=== PATIENT | female | born 1985 | race Caucasian/White ===

== ENCOUNTER 2018-11-14 10:30 | Emergency (ER) | payer MEDICAID, SELFPAY ==
[2018-11-14 10:33] VITALS: BP 118/80; PULSE 111; RESP 16; TEMP 37; O2SAT 100
--- NOTE | 2018-11-14 10:47 | W.ED.GENAD ---
Discharge Plan Disposition Patient Disposition: HOME Discharge Details Chief Complaint: DentalOral Clinical Impression: Dental infection Primary Care Provider: Zulay,Local ED Provider: Felix Richards Home Meds and New Rx's Prescriptions: New clindamycin HCl [Cleocin HCl] 150 mg capsule 450 mg PO TID Qty: 60 RF: 0 Continued ibuprofen [Ibuprofen IB] 200 MG tablet 800 mg PO PRN PRNRF: 0 Mirena 1 EACH intrauterine device 1 unit IU DAILY RF: 0 buprenorphine-naloxone 1 EACH tablet, sublingual 12 mg Sublingual DAILY RF: 0 Discharge Instructions Instructions: Dental Abscess (ED) Additional Instructions: Please take antibiotic as prescribed. Please follow-up with your dentist. Call for an appointment. Return to the ER for any worsening or new concerning symptoms. Medical Decision Making 33-year-old female smoker with history of prior dental infections here with right lower molar dental pain consistent with early dental infection. No abscess visualized or palpable. Patient notes penicillin allergy. She has been treated with clindamycin for dental infections successfully in the past. She is anxious here today per Patient does not currently have a local dentist and has anxiety about seeking a new dentist. I will provide her a dental follow-up resource list. I will give initial dose of clindamycin and prescribe 1 week course. Usual and customary discharge instructions were provided. HPI General Mode of arrival: ambulatory. Date/Time Provider Initiated Documentation: 11/14/18 10:41. Limitations to Documentation: no limitations. Information obtained by: patient. HPI Narrative: 33-year-old female smoker with history of prior dental infections here with pain in her right lower molar that started 3 days ago and has persisted. Pain is moderate to severe. No associated swelling or fever. She notes symptoms are similar to prior dental infection. Related Data Home Medications Medication Instructions Recorded Confirmed ibuprofen [Ibuprofen IB] 800 mg PO PRN PRN 04/04/14 11/14/18 Mirena 1 unit IU DAILY 08/22/15 11/14/18 buprenorphine-naloxone 12 mg SUBLINGUAL DAILY 09/01/16 11/14/18 clindamycin HCl [Cleocin HCl] 450 mg PO TID #60 cap 11/14/18 Previous Rx's Medication Instructions Recorded clindamycin HCl [Cleocin HCl] 450 mg PO TID #60 cap 11/14/18 Allergies Allergy/AdvReac Type Severity Reaction Status Date / Time Penicillins Allergy Unknown Unverified 11/14/18 10:37 General Stated Complaint: DentalOral MARSHALL: 5 Review of Systems Constitutional Denies fever(s) ENT Reports as per [facility] Social History Smoking and Tabacco status: Current every day Exam Const General: cooperative and no acute distress Orientation: alert and awake Limitations: mental status not altered [facility] Head: normocephalic and atraumatic Mouth: moist mucous membranes Teeth and gingiva: caries, poor dentition and other (Chronic fractured teeth right lower molars with no palpable abscess ) Throat: posterior oropharynx normal, uvula midline, posterior oropharynx abnormal and no uvular edema Other: No trismus Eyes General: appearance normal, both eyes and all related structures Conjunctivae: normal conjunctivae Sclera: normal sclerae EOM: EOM intact bilaterally Neck Neck: no lymphadenopathy, trachea midline and supple Resp Effort & Inspection: normal respiratory effort Auscultation: clear to auscultation bilaterally, no rales, no rhonchi and no wheezes Skin General skin exam: no rashes or lesions noted (face) Other: warm Neuro General: alert, awake and tone normal Psych Appearance: grossly normal Mental Status: mental status grossly normal Speech and Movement: speech and movement normal Course Vital Signs Temperature 37.0 C 11/14/18 10:33 Pulse 111 H 11/14/18 10:33 Respiratory Rate 16 11/14/18 10:33 Blood Pressure 118/80 11/14/18 10:33 Pulse Oximetry 100 11/14/18 10:33 Temperature 37.0 C 11/14/18 10:33 Temperature Source Temporal Artery Scan 11/14/18 10:33 Pulse 111 H 11/14/18 10:33 Respiratory Rate 16 11/14/18 10:33 Respiratory Effort Non-Labored 11/14/18 10:36 Blood Pressure 118/80 11/14/18 10:33 Pulse Oximetry 100 11/14/18 10:33 Oxygen Delivery Method Room Air 11/14/18 10:33 Oxygen Flow Rate 0 11/14/18 10:33 Pain Level 5 11/14/18 10:33
[2018-11-14] MEDS: Clindamycin 150 MG CAP 450 MG PO (10:53)
== END 2018-11-14 10:57 | disposition home or self-care (01) ==
LOC: ER 11:07
PROVIDERS: Emergency Provider Student in an Organized Health Care Education/Training Program
DX: R68.84 Jaw pain (principal); K04.7 Periapical abscess without sinus
CPT/HCPCS: 99283

== ENCOUNTER 2021-06-23 23:22 | Emergency (ER) | payer MEDICAID, SELFPAY ==
[2021-06-23 23:30] VITALS: BP 138/104; PULSE 130; RESP 18; TEMP 36.5; O2SAT 97
--- NOTE | 2021-06-23 23:45 | DI.RAD_ITS ---
Exam(s) XR PORTABLE CHEST AP EXAM: XR PORTABLE CHEST AP CLINICAL HISTORY: cough, abnormal lung sounds. TECHNIQUE: 2D digital imaging was performed. COMPARISON: CR CHEST 2 VIEWS PA,LAT from 03/15/2012 FINDINGS: Heart size normal. Mediastinum not widened. The mediastinum is not widened. Bilateral hyperinflation-COPD. There is prominent area of infiltrate in the left lung base involving left lower lobe. No obvious pleural effusion. Right lung is clear. IMPRESSION: COPD. Prominent infiltrate in the left lung base. Probably infectious. Follow-up to resolution is recommended to rule out neoplastic pathology. DATA REPOSITORY: RADIATION DOSE DELIVERED: All CT scans at this facility use at least one of these dose optimization techniques: automated exposure control; mA and/or kV adjustment per patient size (includes targeted e xams where dose is matched to clinical indication); or iterative reconstruction.
--- NOTE | 2021-06-23 23:55 | ED.GENADUL_ITS ---
Discharge Plan Disposition Patient Disposition: HOME Condition: Good Discharge Details Clinical Impression: CAP (community acquired pneumonia) Primary Care Provider: Zulay,Local ED Provider: Modesto Mcghee Meds and New Rx's Prescriptions: New levofloxacin 750 mg Tablet 750 mg PO DAILY Qty: 6 RF: 0 Continued Mirena 1 EACH intrauterine device 1 unit IU DAILY RF: 0 buprenorphine-naloxone 1 EACH tablet, sublingual 16 mg Sublingual DAILY RF: 0 Discharge Instructions Instructions: How to Stop Smoking (ED), Community Acquired Pneumonia (ED) Additional Instructions: Please take antibiotic as directed. Strongly urged to discontinue smoking given evidence of emphysema on chest x-ray. Will need follow-up with primary care and will have care management help with these arrangements. Return to ED for chest pain, difficulty breathing, vomiting, mental status changes, other concerns. Referrals: Care Management [Provider Group] Medical Decision Making Patient is afebrile with normal saturation. Heart rate is elevated due to anxiety not to the illness. She does have rhonchi in the left base suggesting pneumonia. She is not vaccinated so Covid test has been obtained. Portable chest x-ray will be obtained. I do not feel laboratory studies are necessary. Patient's chest x-ray shows significant COPD changes as well as left lower lobe infiltrate. She has allergy to penicillin which causes anaphylaxis reaction within 10 minutes of taking it. Because of her COPD changes and her penicillin allergy Levaquin would be most appropriate antibiotic to treat community- acquired pneumonia. She is on Suboxone so EKG is obtained. There is a normal QT interval. She is given her first dose of Levaquin here. We discussed x-ray findings and the urgent need for her to stop smoking given the amount of COPD changes noted. Covid test came back negative. We will have care management to establish primary care for follow-up as well as smoking cessation. Return to ED for chest pain, increased difficulty breathing, mental status changes, vomiting, other concerns. HPI General Mode of arrival: ambulatory . Date/Time Provider Initiated Documentation: 06/23/21 23:24 . Limitations to Documentation: no limitations . Information obtained by: patient and RN notes reviewed . HPI Narrative: Patient presents to the ED after coughing up some blood-tinged sputum. Patient has had cough for 2 weeks. It has become worse with increased sputum production and tonight some streaks of blood. She denies having fever, headache, body aches, joint pain, chest pain, difficulty breathing, vomiting. She is a smoker. She is not vaccinated against Covid. She does have sore throat but denies congestion, earache, other URI type symptoms. She is extremely anxious about being in the hospital. She always has anxiety when seeing medical providers. She only came in because the coughing streaks of blood concerned her. Related Data Home Medications Medication Instructions Recorded Confirmed Mirena 1 unit IU DAILY 08/22/15 06/23/21 buprenorphine-naloxone 16 mg SUBLINGUAL DAILY 09/01/16 06/23/21 levofloxacin 750 mg PO DAILY #6 tab 06/24/21 Previous Rx's Medication Instructions Recorded levofloxacin 750 mg PO DAILY #6 tab 06/24/21 Allergies Allergy/AdvReac Type Severity Reaction Status Date / Time Penicillins Allergy Unknown Unverified 06/23/21 23:35 General Stated Complaint: RespSymp MARSHALL: 4 Review of Systems Narrative: As documented in HPI otherwise negative as below. Const: no fever, chills, weakness Resp: no SOB, pleuritic pain CV: no CP, diaphoresis, edema, syncope GI: no abdominal pain, nausea, vomiting, diarrhea Neuro: no headache, numbness, focal weakness, confusion PFSH Medical History No significant past medical history Surgical History No significant past surgical history Social History Smoking/Tobacco Use Status: Current every day Tobacco Type: cigarettes Smoking risk assessment performed?: Yes Drug use: Current Sobriety Substance use type: former substance user Do you feel safe at home: Yes Do you feel safe in your relationship?: Yes Exam Narrative Exam Narrative: Const: Thin female in NAD. HEENT: NC/AT. Normal facial exam. TMs normal. Eyes: Normal conjunctiva and sclera. Neck: Supple. Trachea midline. Lungs: Normal respiratory effort. Lungs with rhonchi in left base. Cor: RRR without murmur/gallop. Good radial pulses. Tachy. GI: Soft. NT/ND. Neuro: A+O x 3. Normal speech, mentation, gait. Cranial nerves II - XII grossly intact. No gross motor or sensory deficit. Ext: No C/C/E. Skin: Warm and dry. Course Vital Signs Vital signs: Vital Signs Temperature 97.7 F 06/23/21 23:30 Pulse 130 H 06/23/21 23:30 Respiratory Rate 18 06/23/21 23:30 Blood Pressure 138/104 H 06/23/21 23:30 Pulse Oximetry 97 06/23/21 23:30 Temperature 97.7 F 06/23/21 23:30 Temperature Source Temporal Artery Scan 06/23/21 23:30 Pulse 130 H 06/23/21 23:30 Respiratory Rate 18 06/23/21 23:30 Respiratory Effort Non-Labored 06/23/21 23:36 Respiratory Depth Normal 06/23/21 23:36 Blood Pressure 138/104 H 06/23/21 23:30 Blood Pressure Position Sitting 06/23/21 23:30 Pulse Oximetry 97 06/23/21 23:30 Oxygen Delivery Method Room Air 06/23/21 23:30 Oxygen Flow Rate 0 06/23/21 23:30 Pain Level 0 06/23/21 23:30 Procedures Smoking Cessation Patient Acknowledges Need for Cessation: Yes Additional Comments: Spent approximately 5 minutes discussing x-ray findings, COPD, smoking cessation with patient.
--- NOTE | 2021-06-24 | RT.EKG_ITS ---
APPROVED REPORT Exam: Resting ECG Reason for Exam: QT assessment Patient Location: E HR:118 bpm ECG Measurements Heart Rate 118 AXIS CA 111 P 82 QRSd 104 QRS 87 QT 315 T 62 QTc 440 Conclusion Sinus tachycardia...rate> 99 Left ventricular hypertrophy...multiple voltage criteria Normal [place] Normal QTc No acute ST changes.
--- NOTE | 2021-06-24 00:08 | NUR.NOTE ---
Radiology at bedside for portable filmNursing Note:
--- NOTE | 2021-06-24 00:17 | DI.VRAD_ITS ---
PROCEDURE INFORMATION: Exam: XR Chest Exam date and time: 06/23/2021 11:55 PM Age: 35 years old Clinical indication: Patient HX: Cough, abnormal lung sounds TECHNIQUE: Imaging protocol: XR of the chest. Views: 1 view. COMPARISON: No relevant prior studies available. FINDINGS: Lungs: Hyperinflation compatible with COPD/emphysema. Left basilar opacity may reflect pneumonia, atelectasis, mass lesion, or a combination. Further evaluation with CT imaging could be performed as needed. Pleural spaces: Unremarkable. No pleural effusion. No pneumothorax. Heart/Mediastinum: Unremarkable. No cardiomegaly. Bones/joints: Unremarkable. IMPRESSION: 1. Hyperinflation compatible with COPD/emphysema. 2. Left basilar opacity may reflect pneumonia, atelectasis, mass lesion, or a combination. Further evaluation with CT imaging could be performed as needed. Dictated and Authenticated by: Chau Benitez MD. Ordering:TRAMAINE Salvador MD
[2021-06-24 00:38] VITALS: BP 119/93; PULSE 124; O2SAT 97
[2021-06-24] MEDS: levoFLOXacin 500 MG, levoFLOXacin 250 MG 750 MG PO (00:43)
[2021-06-24 00:51] LABS: COVID-19 PCR Negative (Negative); Source Nasal/Nares
--- NOTE | 2021-06-25 10:40 | CMPROGNOTE_ITS ---
- If Service Date Differs Date of service: 06/25/21 Time of Service: 10:40 Care Management Progress Note Nicol was seen in the ED for community acquired pneumonia. At the request of ED provider, CM coordinates a referral to Malvin Sherwood DNP, [employer], of [facility], on-call provider, to assist Nicol in obtaining a follow up appointment and in establishing care with a PCP.
--- NOTE | 2021-06-26 18:29 | NUR.NOTE ---
negative covid result left on answering machine. Nursing Note:
--- NOTE | 2021-06-30 13:09 | NUR.NOTE ---
notified by phone that covid swab was negative.Nursing Note:
== END 2021-06-24 00:49 | disposition home or self-care (01) ==
PROVIDERS: Emergency Provider Emergency Medicine
DX: J18.9 Pneumonia, unspecified organism (principal); F17.210 Nicotine dependence, cigarettes, uncomplicated; J44.9 Chronic obstructive pulmonary disease, unspecified
CPT/HCPCS: 87635; 93005; 99284; 71045; 93010

== ENCOUNTER 2021-09-11 14:04 | Outpatient (REF) | payer MEDICAID, SELFPAY ==
[2021-09-11 14:14] LABS: HCT 27.4 % (36.0-46.0); HGB 8.2 g/dL (11.2-15.7); MCH 25.5 pg (27.0-33.0); MCHC 29.9 % (32.0-36.0); MCV 85.1 fL (80-95); MPV 9.9 fL (8.0-11.0); RBC 3.22 10^6/uL (3.93-5.22); RDW 19.2 % (11.7-14.6); RDW-SD 58.4 fL
[2021-09-11 14:53] LABS: Platelet Count 911 10^3/uL (130-400); WBC 27.67 10^3/uL (4.4-10.8)
[2021-09-11 15:03] LABS: ALT 10 U/L (14-59); AST 11 U/L (15-37); Albumin 1.9 g/dL (3.4-5.0); Alkaline Phosphatase 118 U/L (46-116); Anion Gap 11.9 mmol/L (3-11); BUN 21 mg/dL (7-18); Bilirubin, Total 0.3 mg/dL (0.2-1.0); CO2 23.1 mmol/L (21.0-32.0); CREATININE 0.6 mg/dL (0.55-1.02); Calcium 8.4 mg/dL (8.5-10.1); Chloride 100 mmol/L (98-107); Glucose 87 mg/dL (74-106); PHOSPHORUS 4.1 mg/dL (2.6-4.7); Potassium 3.5 mmol/L (3.5-5.1); Sodium 135 mmol/L (136-145); TSH (W/Ref FT4) < 0.01 uIU/mL (0.36-3.74); Total Protein 7.8 g/dL (6.4-8.2)
[2021-09-11 15:34] LABS: FREE T4 2.88 ng/dL (0.76-1.46)
[2021-09-11 15:52] LABS: Iron 8 ug/dL (50-170); Total Iron Binding Capacity 118 ug/dL (250-450); Transferrin Sat 7 % (15-50)
[2021-09-11 16:26] LABS: Hemoglobin A1C 5.5 % (<5.7)
[2021-09-12 09:17] LABS: Hepatitis B Surface Ag Negative (Negative)
[2021-09-12 09:45] LABS: Hepatitis C Ab w Rflx HCV PCR Negative (Negative)
[2021-09-12 10:02] LABS: HIV-1/2 Ag & Ab Screen Negative (Negative)
[2021-09-12 10:40] LABS: Prealbumin 7 mg/dL (20-40)
== END 2021-09-11 14:05 | disposition home or self-care (01) ==
LOC: LBN 14:04
PROVIDERS: PCP Family Medicine; Visit Provider Family Medicine
DX: R63.6 Underweight (principal); Z00.00 Encounter for general adult medical examination without abnormal findings; Z11.4 Encounter for screening for human immunodeficiency virus [HIV]; Z11.59 Encounter for screening for other viral diseases
CPT/HCPCS: 80053; 85027; 86803; 87340; 87389; 83036; 83540; 83550; 83735; 84100; 84134; 84439; 84443

== ENCOUNTER 2021-11-13 09:39 | Inpatient (IN) | payer MEDICAID, SELFPAY ==
[2021-11-13] VITALS (17 sets, daily range): BP systolic 87–134; BP diastolic 42–97; PULSE 86–109; RESP 16–25; TEMP 36.2–37.6; O2SAT 95–99; BMI 16.6
--- NOTE | 2021-11-13 10:00 | DI.RAD_ITS ---
Exam(s) XR ANKLE RT COMPLETE EXAM: XR ANKLE RT COMPLETE CLINICAL HISTORY: medial and lateral necrotic? ulcer, r/o osteo. TECHNIQUE: 2D digital imaging was performed. COMPARISON: No exams were available for comparison FINDINGS: Three views of the right ankle reveal severe soft tissue deficiencies bilaterally with air-gas in sof t tissues. There are no fractures nor widening of the mortise. No radiopaque foreign body. No obvious radiogra phic evidence of osteomyelitis. No vascular calcification. IMPRESSION: As above. Discussed with ER provider. DATA REPOSITORY: RADIATION DOSE DELIVERED:
--- NOTE | 2021-11-13 10:11 | ED.GENADUL_ITS ---
Discharge Plan Disposition Patient Disposition: [facility] INPATIENT Condition: Stable Discharge Details Clinical Impression: Open ankle wound, Subcutaneous air, Wound infection Admit Date/Time: 11/13/21 15:30 Admit Provider: Susana Richey Attending Provider: Susana Richey Primary Care Provider: Isaac Nuno ED Provider: Jazzy Celaya Discharge Data Discharge Date/Time-TO BE ENTERED AT DEPARTURE: 11/13/21 15:08 Medical Decision Making 36-year-old female with a former history of narcotic abuse in remission on Suboxone with a history of tachycardia on propranolol presents for right ankle wounds for the past 6 weeks. She has 2 approximate 8 x 8 cm dark maroon/black crusted wounds located on the right medial and lateral ankle. Her right DP pulse is intact. There is serous drainage from an opening in the inferior aspect of the lateral wound. Heart rate low 100s. She is afebrile and appears very anxious but otherwise nontoxic. Her leg does not appear edematous otherwise and unclear if she has an overlying crust from constant irritation from her boot and a distal extremity with delayed healing or if there is concern for necrosis. Will place an IV, bolus IV fluids, screening labs, lactate, ESR, CRP and right ankle x-ray. Labs and imaging reviewed. White blood cell count 28. 2 bands. Lactate 1.6. ESR 87. CRP 11.5. Potassium 2.6. Vancomycin IV and Cipro IV ordered. She is reporting an anaphylactic reaction with penicillin. IV/PO potassium ordered. X-rays reviewed with radiology who does not see obvious signs of osteomyelitis but sees potential gas or whether this is air within superficial tissue it is unclear. We will proceed with CT. Patient is tearful and anxious and is repeatedly stated she does not want to stay. Discussed with patient the importance of receiving treatment including IV antibiotics at this time and the concern of worsening condition with risk of amputation. A dose of Ativan ordered. CT reviewed and notes subcutaneous air but no findings consistent with osteom yelitis, ischemic changes, abscess or deep subcu air noted within tendon or muscle. MRI down til 5pm. Case discussed with Dr. Dumont and no orthopedic intervention indicated at this time as no obvious bony injury. Case discussed general surgery who will evaluate with plan for likely OR for debridement. Patient more relaxed after Ativan and is agreeable with plan. Medical Records Medical records reviewed: Yes I reviewed the patient's medical records. Imaging Data Radiologic Study: Radiologist's impression: ?XR ANKLE RT COMPLETE CLINICAL HISTORY: ? medial and lateral necrotic? ulcer, r/o osteo. ? TECHNIQUE:? 2D digital imaging was performed. COMPARISON:? No exams were available for comparison FINDINGS: Three views of the right ankle reveal severe soft tissue deficiencies bilaterally with air-gas in soft tissues. There are no fractures nor widening of the mortise.? No radiopaque foreign body.? No obvious radiographic evidence of osteomyelitis.? No vascular calcification. CT LOWER EXTREMITY RT W CLINICAL HISTORY: ? R ankle wounds, r/o abscess, osteo. ? TECHNIQUE:? Imaging Protocol: Axial computed tomography images with coronal and sagittal reformatted images were created and reviewed. CONTRAST MATERIAL:? Intravenous: Omnipaque 350 Contrast volume:100 cc contrast route:IV - COMPARISON:? ANKLE X-RAYS PERFORMED EARLIER TODAY.? FINDINGS: SOFT TISSUES: There are multiple open wounds on both sides of the ankle and proximal foot, corresponding to what is seen on the recent plain films.? There is no radiopaque foreign body.? There is air within the subcutaneous tissues.? Diffuse edema but no distinct focal abscess evident.? No tenosynovitis.? No gas within the muscles nor within the visualized tendon sheaths. VASCULAR: There is three-vessel runoff in the calf.? Anterior and posterior tibial arteries are patent as is the peroneal artery. OSSEOUS: There is osteopenia.? No fractures.? No obvious focal evidence of osteomyelitis.? No incidental osseous lesions. IMPRESSION: Soft tissue findings as above, not associated with a distinct focal abscess nor obvious osteomyelitis.? If clinically indicated follow-up MRI can be performed Lab Data Lab results reviewed: Yes I reviewed the patient's lab results. Labs: Laboratory Tests Range/Units 11/13/21 11/13/21 11/13/21 10:10 10:10 10:10 WBC (4.4-10.8) 10^3/uL RBC (3.93-5.22) 10^6/uL Hgb (11.2-15.7) g/dL Hct (36.0-46.0) % MCV (80-95) fL MCH (27.0-33.0) pg MCHC (32.0-36.0) % RDW (11.7-14.6) % Plt Count (130-400) 10^3/uL MPV (8.0-11.0) fL Immature Gran % Neutrophils % Band Neutrophils % Lymphocytes % Monocytes % Eosinophils % Basophils % Nucleated RBC % % Absolute Neutrophils (1.2-6.7) 10^3/uL Absolute Lymphocytes (1.2-3.4) 10^3/uL Absolute Monocytes (0.1-0.8) 10^3/uL Absolute Eosinophils (0.0-0.7) 10^3/uL Absolute Basophils (0.0-0.2) 10^3/uL RBC Morphology ESR (0-20) mm/hr 87 H VBG Lactate (0.6-1.4) mmol/L 1.6 H Sodium (136-145) mmol/L 138 Potassium (3.5-5.1) mmol/L 2.6 L* Chloride (98-107) mmol/L 102 Carbon Dioxide (21.0-32.0) mmol/L 24.8 Anion Gap (3-11) mmol/L 11.2 H BUN (7-18) mg/dL 24 H Creatinine (0.55-1.02) mg/dL 0.8 Estimated GFR/1.73 m2 (mL/min/1.73m2) >= 60.00 Glucose (74-106) mg/dL 186 H Calcium (8.5-10.1) mg/dL 9.1 Total Bilirubin (0.2-1.0) mg/dL 0.2 AST (15-37) U/L 16 ALT (14-59) U/L 27 Alkaline Phosphatase (46-116) U/L 129 H C-Reactive Protein (0.0-0.3) mg/dL 11.51 H Total Protein (6.4-8.2) g/dL 8.5 H Albumin (3.4-5.0) g/dL 2.4 L Range/Units 11/13/21 10:10 WBC (4.4-10.8) 10^3/uL 28.17 H* RBC (3.93-5.22) 10^6/uL 4.46 Hgb (11.2-15.7) g/dL 11.7 Hct (36.0-46.0) % 37.6 MCV (80-95) fL 84.3 MCH (27.0-33.0) pg 26.2 L MCHC (32.0-36.0) % 31.1 L RDW (11.7-14.6) % 16.7 H Plt Count (130-400) 10^3/uL 612 H MPV (8.0-11.0) fL 9.5 Immature Gran % 0.0 Neutrophils % 79.0 Band Neutrophils % 2 Lymphocytes % 11.0 Monocytes % 5.0 Eosinophils % 1.0 Basophils % 2.0 Nucleated RBC % % 0 Absolute Neutrophils (1.2-6.7) 10^3/uL 22.82 H Absolute Lymphocytes (1.2-3.4) 10^3/uL 3.10 Absolute Monocytes (0.1-0.8) 10^3/uL 1.41 H Absolute Eosinophils (0.0-0.7) 10^3/uL 0.28 Absolute Basophils (0.0-0.2) 10^3/uL 0.56 H RBC Morphology Normal ESR (0-20) mm/hr VBG Lactate (0.6-1.4) mmol/L Sodium (136-145) mmol/L Potassium (3.5-5.1) mmol/L Chloride (98-107) mmol/L Carbon Dioxide (21.0-32.0) mmol/L Anion Gap (3-11) mmol/L BUN (7-18) mg/dL Creatinine (0.55-1.02) mg/dL Estimated GFR/1.73 m2 (mL/min/1.73m2) Glucose (74-106) mg/dL Calcium (8.5-10.1) mg/dL Total Bilirubin (0.2-1.0) mg/dL AST (15-37) U/L ALT (14-59) U/L Alkaline Phosphatase (46-116) U/L C-Reactive Protein (0.0-0.3) mg/dL Total Protein (6.4-8.2) g/dL Albumin (3.4-5.0) g/dL HPI General Date/Time Provider Initiated Documentation: 11/13/21 09:42 . Limitations to Documentation: no limitations . Information obtained by: patient . HPI Narrative: Patient is a 36-year-old female with a history of narcotic abuse in remission on Suboxone with history of tachycardia on propranolol presents with right ankle wounds for the past 6 weeks. Patient states she was unaware that she had this until the last few weeks. She states she wears winter boot with soft and thinks it is rubbing inside her boot. She states she went to the urgent care today for her ankle wounds and was referred here for further evaluation. She states 2 days ago she tripped over a toy at home and opened the lateral wound on her ankle and has been oozing and bleeding. She denies any fever or IV drug use. She states she has diagnosed with COVID in July which progressed to pneumonia and was treated with Levaquin in August. She states her COVID symptoms are now resolved. Related Data Home Medications Medication Instructions Recorded Confirmed levonorgestrel 20 mcg/24 hours (7 1 unit IU DAILY 08/22/15 11/13/21 yrs) 52 mg intrauterine device (Mirena) ferrous gluconate 324 mg (38 mg 324 mg PO DAILY 11/13/21 11/13/21 iron) tablet propranolol 20 mg tablet 20 mg PO BID 11/13/21 11/13/21 buprenorphine 2 mg-naloxone 0.5 mg 1 film SUBLINGUAL DAILY 11/14/21 11/14/21 sublingual film (Suboxone) buprenorphine 8 mg-naloxone 2 mg 2 film SUBLINGUAL DAILY 11/14/21 11/14/21 sublingual film (Suboxone) Allergies Allergy/AdvReac Type Severity Reaction Status Date / Time Penicillins Allergy Unknown Hives Verified 11/13/21 14:49 General Stated Complaint: Cellulitis MARSHALL: 3 Review of Systems All systems reviewed & are unremarkable except as noted in HPI and below Constitutional Constitutional: Reports as per HPI, Denies chills and Denies fever(s) Eyes Eyes: Denies blurry vision ENT Ears, Nose, Mouth, and Throat: Denies dizziness, Denies sore throat and Denies throat swelling Cardiovascular Cardiovascular: Denies chest pain and Denies dyspnea Respiratory Respiratory: Denies cough and Denies dyspnea Gastrointestinal Gastrointestinal: Denies abdominal pain, Denies diarrhea and Denies vomiting Genitourinary Genitourinary: Denies hematuria and Denies dysuria Musculoskeletal Musculoskeletal: Denies back pain and Denies numbness Integumentary/Breasts Skin/Breast: Denies lesions, Denies rash and Reports skin ulcer (R medial and lateral ankle) Neurologic Neurologic: Denies dizziness, Denies localized weakness and Denies numbness Allergic/Immunologic Allergic/Immunologic: Denies throat swelling PFSH All Active Problems (Updated 11/14/21 @ 15:58 by Gabriella Kelley MD) Hyperthyroidism (Chronic) Leukocytosis (leucocytosis) (Acute) Asthma (Chronic) Hypoalbuminemia due to protein-calorie malnutrition (Acute) Dry gangrene (Acute) Smoker unmotivated to quit (Acute) Open ankle wound (Acute) Subcutaneous air (Acute) Wound infection (Acute) CAP (community acquired pneumonia) (Acute) Pain, dental (Acute) Medical History (Updated 11/14/21 @ 15:58 by Gabriella Kelley MD) Narcotic abuse in remission Tachycardia Surgical History (Updated 11/13/21 @ 10:15 by Jazzy Celaay DO) History of adenoidectomy S/p bilateral myringotomy with tube placement Social History Smoking/Tobacco Use Status: Current every day Tobacco Type: cigarettes Smoking risk assessment performed?: Yes Alcohol Intake: never Drug use: Current Sobriety Substance use type: former substance user Do you feel safe at home: Yes Do you feel safe in your relationship?: Yes Exam Const General: cooperative, no acute distress, disheveled and ill appearing chronically Nutritional Appearance: thin Orientation: alert, awake and oriented x3 HENMT Head: normal to inspection Mouth: oral mucosae normal Eyes General: appearance normal, both eyes and all related structures Neck Neck: normal visual inspection Resp Effort & Inspection: normal respiratory effort and able to speak in complete sentences Cardio Rate: regular rate Neuro General: patient alert, patient awake and patient oriented x3 Motor: muscle tone normal throughout Extrem Ankle/foot/toe images: 1. Approximate 8x8cm dark maroon/black crusted wound with approximate 6cm linear opening within the inferior aspect of the wound with clear and serous drainage. There is surrounding pink granulation tissue but no significant erythema, edema, crepitus, induration or fluctuance. 2. Approximate 8 x 8 cm dark maroon/black crusted wound. There is surrounding pink granulation tissue but no significant erythema, edema, crepitus, induration or fluctuance. Psych Appearance: grossly normal Affect: normal affect Course Vital Signs Vital signs: Vital Signs Temperature 97.7 F 11/13/21 09:49 Pulse 109 H 11/13/21 09:49 Respiratory Rate 16 11/13/21 09:49 Blood Pressure 134/97 H 11/13/21 09:49 Pulse Oximetry 96 11/13/21 09:49 Temperature 97.7 F 11/13/21 09:49 Temperature Source Skin 11/13/21 09:49 Pulse 109 H 11/13/21 09:49 Respiratory Rate 16 11/13/21 09:49 Respiratory Effort 11/13/21 09:49 Blood Pressure 134/97 H 11/13/21 09:49 Blood Pressure Position Sitting 11/13/21 09:49 Pulse Oximetry 96 11/13/21 09:49 Oxygen Delivery Method Room Air 11/13/21 09:49 Oxygen Flow Rate 0 11/13/21 09:49 Pain Level 0 11/13/21 09:49
[2021-11-13 10:23] LABS: HCT 37.6 % (36.0-46.0); HGB 11.7 g/dL (11.2-15.7); MCH 26.2 pg (27.0-33.0); MCHC 31.1 % (32.0-36.0); MCV 84.3 fL (80-95); MPV 9.5 fL (8.0-11.0); Nucleated RBC 0 %; Platelet Count 612 10^3/uL (130-400); RBC 4.46 10^6/uL (3.93-5.22); RDW 16.7 % (11.7-14.6)
[2021-11-13] MEDS: Normal Saline 1,000 ML 1000 ML IV (10:23)
[2021-11-13 10:25] LABS: ESR 87 mm/hr (0-20); Lactate 1.6 mmol/L (0.6-1.4)
--- NOTE | 2021-11-13 10:29 | NUR.NOTE ---
Nursing Note: Pt brought to radiology via w/c for xray.
[2021-11-13 10:35] LABS: WBC 28.17 10^3/uL (4.4-10.8)
[2021-11-13 10:37] LABS: ALT 27 U/L (14-59); AST 16 U/L (15-37); Absolute Basophil Count 0.56 10^3/uL (0.0-0.2); Absolute Eosinophil Count 0.28 10^3/uL (0.0-0.7); Absolute Monocyte Count 1.41 10^3/uL (0.1-0.8); Absolute Neutrophil Count 22.82 10^3/uL (1.2-6.7); Albumin 2.4 g/dL (3.4-5.0); Alkaline Phosphatase 129 U/L (46-116); Anion Gap 11.2 mmol/L (3-11); BUN 24 mg/dL (7-18); Bands % 2; Bilirubin, Total 0.2 mg/dL (0.2-1.0); C-Reactive Protein 11.51 mg/dL (0.0-0.3); CO2 24.8 mmol/L (21.0-32.0); CREATININE 0.8 mg/dL (0.55-1.02); Calcium 9.1 mg/dL (8.5-10.1); Chloride 102 mmol/L (98-107); Diff Comment Manual Differential; Glucose 186 mg/dL (74-106); RBC Morphology Normal; Sodium 138 mmol/L (136-145); Total Protein 8.5 g/dL (6.4-8.2)
[2021-11-13 10:39] LABS: Potassium 2.6 mmol/L (3.5-5.1)
--- NOTE | 2021-11-13 10:44 | NUR.NOTE ---
Nursing Note: Pt return from DI, IVF continued.
[2021-11-13] MEDS: POTASSIUM CHLORIDE 20 MEQ/100 ML BAG 50 MEQ IVPB (11:15)
[2021-11-13] MEDS: Potassium Chloride 20 MEQ TABCR 40 MEQ PO (11:15)
[2021-11-13] MEDS: VANCOMYCIN/WATER (PEG) 1.25 GM/250 ML BAG IVPB (11:28)
[2021-11-13] MEDS: LORazepam 2 MG/ML VIAL 0.5 MG IVP (11:40)
[2021-11-13] MEDS: CIPROFLOXACIN 400 MG/200 ML BAG 200 MG IVPB (11:48)
--- NOTE | 2021-11-13 11:49 | NUR.NOTE ---
Nursing Note: Pt medicated IV ativan d/t anxiety r/t current situation, pt upset/tearful and I just want to go home, I need to smoke a cigarette and I have kids so I can't stay here pt agrees to stay & take ativan as ordered to help relieve anxiety and cont. treatment at this time, cont. to monitor.
--- NOTE | 2021-11-13 12:08 | NUR.NOTE ---
Nursing Note: Pt reports feeling less anxious at this time, to DI for scans via stretcher w/tech.
[2021-11-13] MEDS: Omnipaque 350 MG/ML 100 ML BTL IJ (12:34)
--- NOTE | 2021-11-13 12:34 | NUR.NOTE ---
Nursing Note: Pt return from DI, IV medications continued, remains calm at this time, cont. to monitor.
--- NOTE | 2021-11-13 12:35 | DI.CT_ITS ---
Exam(s) CT LOWER EXTREMITY RT W EXAM: CT LOWER EXTREMITY RT W CLINICAL HISTORY: R ankle wounds, r/o abscess, osteo. TECHNIQUE: Imaging Protocol: Axial computed tomography images with coronal and sagittal reformatted images were created and reviewed. CONTRAST MATERIAL: Intravenous: Omnipaque 350 Contrast volume:100 cc contrast route:IV - COMPARISON: ANKLE X-RAYS PERFORMED EARLIER TODAY. FINDINGS: SOFT TISSUES: There are multiple open wounds on both sides of the ankle and proximal foot, corresponding to what is seen on the recent plain films. There is no radiopaque foreign body. There is air within the subcu taneous tissues. Diffuse edema but no distinct focal abscess evident. No tenosynovitis. No gas wit hin the muscles nor within the visualized tendon sheaths. VASCULAR: There is three-vessel runoff in the calf. Anterior and posterior tibial arteries are patent as is th e peroneal artery. OSSEOUS: There is osteopenia. No fractures. No obvious focal evidence of osteomyelitis. No incidental osseo us lesions. IMPRESSION: Soft tissue findings as above, not associated with a distinct focal abscess nor obvious osteomyelitis . If clinically indicated follow-up MRI can be performed RADIATION DOSE DELIVERED: Total DLP DATA REPOSITORY: All CT scans at this facility are submitted to the National Radiology Data Registry (NRDR) Dose Index Registry (DIR) with the [employer] (ACR). RADIATION OPTIMIZATION: All CT scans at this facility use at least one of these dose optimization te chniques: automated exposure control; mA and/or kV adjustment per patient size (includes targeted exa ms where dose is matched to clinical indication); or iterative reconstruction.
--- NOTE | 2021-11-13 13:11 | NUR.NOTE ---
Nursing Note: Covid swab obtained & sent to lab per order.
[2021-11-13 13:55] LABS: COVID-19 PCR Negative (Negative)
[2021-11-13 14:00] LABS: Source NASAL
[2021-11-13 14:09] LABS: *AMPHETAMINES SCREEN URINE Negative (Negative); *BARBITURATES SCREEN URINE Negative (Negative); *BENZODIAZEPINES SCREEN URINE Negative (Negative); Cannabinoids THC Negative (Negative); Cocaine Screen,Urine Negative (Negative); METHADONE URINE SCREEN Negative (Negative); OPIATES URINE SCREEN Negative (Negative); Tricyclic Antidepressants Negative (Negative)
--- NOTE | 2021-11-13 14:14 | ANES.PREOP_ITS ---
General Info Date of Service Date Performed: 11/13/21 Height: 5 ft Weight: 38.555 kg Body Mass Index (BMI): 16.6 Meds Allergies and Home Medications Allergies Allergy/AdvReac Type Severity Reaction Status Date / Time Penicillins Allergy Unknown Hives Verified 11/13/21 14:49 Home Medication Medication Instructions Recorded levonorgestrel 20 mcg/24 hours (7 1 unit IU DAILY 08/22/15 yrs) 52 mg intrauterine device (Mirena) buprenorphine 8 mg-naloxone 2 mg 18 mg SUBLINGUAL DAILY 09/01/16 sublingual tablet ferrous gluconate 324 mg (38 mg 324 mg PO DAILY 11/13/21 iron) tablet propranolol 20 mg tablet 20 mg PO BID 11/13/21 Current Visit Medications: Current Medications Generic Name Dose Route Start Last Admin Trade Name Freq PRN Reason Stop Dose Admin IV Miscellaneous Supplies 1 each 11/13/21 10:15 Iv Access IV DIRECTED HANSA Iohexol 100 ml 11/13/21 12:45 11/13/21 12:34 Omnipaque 350 Mg/Ml 100 Ml Btl IJ 12/13/21 23:59 100 ml DIRECTED HANSA Administration Sodium Chloride 0 ml 11/13/21 10:07 Normal Saline Flush 10 Ml Syr IVP PRN PRN Sodium Chloride 50 ml 11/13/21 12:45 11/13/21 12:34 Normal Saline 50 Ml Bag IJ 50 ml DIRECTED HANSA Administration PFSH Active Problems Active Problems: Problem Status Onset Code CAP (community acquired pneumonia) J18.9 Pain, dental K08.8 Medical History Medical History (Updated 11/13/21 @ 14:40 by Susana Richey DO) Narcotic abuse in remission Tachycardia Surgical History Surgical History (Updated 11/13/21 @ 10:15 by Jazzy Celaya DO) History of adenoidectomy S/p bilateral myringotomy with tube placement Tobacco Smoking/Tobacco Use Status: Current every day Tobacco Type: cigarettes Smoking cigarettes per day: 10 Alcohol Alcohol Intake: never Substance Use Substance use: Current Sobriety Substance use type: former substance user Vital Signs and Lab Results Vital Signs Most Recent Vital Signs in EMR: Most Recent Vital Signs Temp Pulse Resp BP Pulse Ox 36.8 C 92 H 18 98/59 L 98 11/13/21 13:39 11/13/21 13:39 11/13/21 13:39 11/13/21 13:39 11/13/21 13:39 Point of Care Results Point of Care Results: POC- Test(urine) Negative 11/13/21 11:13 Lab Results Result Diagrams: 11/13/21 10:10 11/13/21 10:10 Blood Type / Crossmatch: No Data to Display Complete Blood Count: White Blood Count 28.17 10^3/uL (4.4-10.8) H* 11/13/21 10:10 11/13/21 Red Blood Count 4.46 10^6/uL (3.93-5.22) 11/13/21 10:10 11/13/21 Hemoglobin 11.7 g/dL (11.2-15.7) 11/13/21 10:10 11/13/21 Hematocrit 37.6 % (36.0-46.0) 11/13/21 10:10 11/13/21 Platelet Count 612 10^3/uL (130-400) H 11/13/21 10:10 11/13/21 Venous Blood Lactate 1.6 mmol/L (0.6-1.4) H 11/13/21 10:10 11/13/21 Complete Metabolic Panel: Sodium Level 138 mmol/L (136-145) 11/13/21 10:10 11/13/21 Potassium Level 2.6 mmol/L (3.5-5.1) L* 11/13/21 10:10 11/13/21 Chloride Level 102 mmol/L (98-107) 11/13/21 10:10 11/13/21 Carbon Dioxide Level 24.8 mmol/L (21.0-32.0) 11/13/21 10:10 11/13/21 Blood Urea Nitrogen 24 mg/dL (7-18) H 11/13/21 10:10 11/13/21 Creatinine 0.8 mg/dL (0.55-1.02) 11/13/21 10:10 11/13/21 Estimated GFR/1.73 m2 >= 60.00 (mL/min/1.73m2) 11/13/21 10:10 11/13/21 Calcium Level 9.1 mg/dL (8.5-10.1) 11/13/21 10:10 11/13/21 Albumin 2.4 g/dL (3.4-5.0) L 11/13/21 10:10 11/13/21 Glucose Level 186 mg/dL (74-106) H 11/13/21 10:10 11/13/21 C-Reactive Protein 11.51 mg/dL (0.0-0.3) H 11/13/21 10:10 11/13/21 Liver Function Panel: Alanine Aminotransferase (ALT/SGPT) 27 U/L (14-59) 11/13/21 10:10 11/13/21 Aspartate Amino Transf (AST/SGOT) 16 U/L (15-37) 11/13/21 10:10 11/13/21 Coagulation Panel: No Data to Display Cardiac Panel: No Data to Display Arterial Blood Gas: No Data to Display Venous Blood Gas: No Data to Display Pancreas Panel: No Data to Display Thyroid Panel: No Data to Display Infectious Disease: Coronavirus (COVID-19)(PCR) Negative (Negative) 11/13/21 13:12 11/13/21 Coronavirus 2019 Source NASAL 11/13/21 13:12 11/13/21 Blood Cultures: No Data to Display Toxicology Panel: Urine Amphetamines Screen Negative (Negative) 11/13/21 13:47 11/13/21 Urine Benzodiazepines Screen Negative (Negative) 11/13/21 13:47 11/13/21 Urine Barbiturates Screen Negative (Negative) 11/13/21 13:47 11/13/21 Urine Cocaine Screen Negative (Negative) 11/13/21 13:47 11/13/21 Urine Methadone Screen Negative (Negative) 11/13/21 13:47 11/13/21 Urine Opiates Screen Negative (Negative) 11/13/21 13:47 11/13/21 Ur Tricyclic Antidepressants Screen Negative (Negative) 11/13/21 13:47 11/13/21 Ur Tetrahydrocannabinol (THC) Scrn Negative (Negative) 11/13/21 13:47 11/13/21 Panel: No Data to Display Anesthesia Assessment and Plan Anesthesia History Personal History: Other (states took a very long time 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) Family History: No Family History of Anesthesia Complications Exercise Tolerance Exercise Tolerance: Metabolic Equivalents>4 Cardiac & Pulmonary Exam Cardiac Exam: Normal S1/S2 Heart Sounds Pulmonary Exam: Clear Bilateral Breath Sounds Implantable Cardiac Device Does patient have a Pacemaker or an ICD?: No Airway Exam Known Difficult Airway: No Mallampati Class: 2 Mouth Opening: Normal (> 3cm) Thyromental Distance: Greater than 3 cm Neck Range of Motion: Full ROM Neck Circumference: Normal Teeth Condition: Generalized Poor Dentition and Loose or Chipped Airway Comments: most teeth are chipped, many missing, denies loose. ASA Classification ASA Score: ASA 2 Emergency Case?: Yes NPO Status NPO Status: Full Stomach Status Status: Negative HCG Anesthesia Plan Resuscitation Status: Full Code Anesthesia Technique: Spinal Anesthesia Airway Planned: Natural Airway Monitors Used: Standard Monitors Preoperative Comments:: 36 yo female with infected right ankle. Current WBC 28k. In the ED did receive 0.5 mg of loraz for anxiety which per the ED RN did make her extremely sleepy (which she is not right now). Sig PMHx: Asthma (unclear as to how much albuterol she actually takes), COVID x 2 - states that he breathing is much worse post covid, tachycardia (takes propranolol twice daily), past substance abuse on suboxone last 18 mg dose yesterday. Extremely anxious. crying. Unclear as how she wants to proceed. risks, benefits, and alternatives (where appropriate) discussed spinal vs general. She has sub stantial hesitation in regards to general, but also very scared of spinal and her legs not working after. We discussed these options at length with the ultimate plan as spinal with GA back up or if the changes her mind.
--- NOTE | 2021-11-13 14:35 | SCONE_ITS ---
Date of service: 11/13/21 Time of Service: 14:35 Assessment and Plan Assessment and plan (1) Smoker unmotivated to quit: Status: Acute Assessment and plan: severe COPD only uses rescue inhaler (2) Narcotic abuse in remission: (3) Wound infection: Status: Acute Assessment and plan: Patient will be undergoing debridement today. Informed consent is obtained explaining risks and benefits of procedure including but not limited to: Bleeding, infection, pneumonia, blood clots. She is high risk for nonhealing. For chronic pain or chronic numbness. or loss of sensation or motor function. She has a high probability amputation. Risks of anesthesia. She may require transfusion. She will need to be admitted to the hospital for IV antibiotics. There is no sign of osteomyelitis on the CT scan. She does have good three- vessel flow to the foot. It is going to take significant effort on her part to get these wounds healed. She is going to have to go to multiple doctors appointments she is going to have to take nutritional and vitamin supplements. She is in have to be compliant with medical directions. She is going to need to stop smoking. None of these things she has been willing to do so far she does have [place] Medicaid for insurance. She has a history of medical noncompliance and narcotic abuse. She has a very high dose of Suboxone. We cannot confirm this with her today. She is also on propranolol and I am not quite sure why she is on this medication. She had a spinal for anesthesia and had some preop hypotension with a systolic goal in the 90s. We will hold the propranolol at this time. I am also interested in why she is on this medication She absolutely has to stop smoking We will start her on antibiotics. She received Cipro and Vanco in the ED. We will cover for MRSA at this time Skin and wound cultures are taken. Blood cultures are ordered. A UA and UDS are done. CRP is 12. She also has a history of iron deficiency anemia. We will supplement her with amount of her. She is very malnourished. We will start her on protein supplements and dietary is consulted. Vitamin studies are pending. She also has a multitude of medical problems and the hospitalist service is consulted. The case was discussed with this wound is quite large and quite and occurred in progress in a small period of time. Dr. Kelley is concerned that there could be a relationship to COVID-19 or autoimmune disorder. Appropriate follow-up laboratory studies are ordered, and tissue is sent for pathologic evaluation. Patient to have problems with pain management. Nerve blocks are not feasible in her because of placement of the wound. From her dose of Suboxone and use non- narcotic as frequently as possible. Physical therapy will be involved for early mobilization and strength training She is going to have to have extensive outpatient care and evaluation. Social work will consult for evaluation of insurance constraints and to arrange for home care. She is going to need a home RN and an extensive dressing changes depending on what cultures and pathology shown will determine the type of dressing system will use Continue on antibiotics and supportive care at this time. Patient's prognosis is poor, especially coupled with her medical noncompliance Minutes is spent in consultation today in discussing her care with multiple services Patient is being prepped for the OR for debridement today (4) Dry gangrene: Status: Acute Assessment and plan: Informed consent is obtained for the procedural (explained in simple layman's terms that the pt and/or family could understand) explaining risks vs benefits and alternatives to the procedure and consequences if we do not do the procedure. Risks include but are not limited to: bleeding, infections, pneumonia, blood clots/DVT/PE, anesthesia (aspiration, damage to teeth/airway/AK/CVA//prolonged mechanical ventilation/PTX/IV infections), Loss of function of limb/ext. (motor or sensory). ?Scarring and disfigurement. Subsequent bowel obstructions from scar tissue.? Chronic pain or numbness from the incision. Due to her poor albumin and her smoking, she is not a candidate for a flap. We will see how extensive muscle and tendon loss is. She is at high risk for requiring amputation. Even if there is no osteo-, and this is going to be a very difficult wound to get healed especially in the light of her significant malnutrition and other medical problems. -contult hosp for medical management -d/w ortho and in agreement Patient has dry gangrene and infection. She has a high probability of losing her limb. ? (5) Hypoalbuminemia due to protein-calorie malnutrition: Status: Acute Assessment and plan: protein supplements (6) Hypokalemia due to loss of potassium: Status: Acute Assessment and plan: working on replacing (7) Asthma: Status: Chronic (8) Leukocytosis (leucocytosis): Status: Acute History of Present Illness Narrative: Surgery was consulted by ER regarding 2 large ulcers medial and laterally on her right lower extremity. The medial ulcer involves the ankle. The lateral ulcer is just superior to the ankle. The lateral side is about 5 to 6 inches. The medial side is about 4 x 4 inches. Patient states that he started as hot spots from rubbing on her boots. They have been present for about 1.5 months. She denies pain. She has been having a lot of drainage. She denies fever or chills. I did review her notes from Dr. Ohara's office. She had pneumonia versus Covid in August 2021. She was on antibiotics and steroids. She does not lose a significant amount of weight. She says she does not have much of an appetite. Her albumin in August was 1.9 and her hemoglobin was 8.2. Her hemoglobin tod ay is 11.4. She does have a known history of a very low TSH. The patient stated that Dr. Ohara was watching it her A1c was within normal limits. Her iron studies are very low. Vitamin studies are pending. She also has a history of oral narcotic abuse. She also has a significant history of medical amount clients. Patient adamantly denies IV drug abuse or continued abuse of narcotics. She has no problems with anesthesia in the past. I did discuss with her if she has a very high chance of amputation. She needs to be very involved in her care. She needs to stop smoking. She needs to do aggressive nutrition and physical therapy. She is not a candidate for a flap because of her continued 2 pack-a-day habit. At this point I do not think we can even consider grafting as she has very minimal fatty deposits and there is just no donor sites. We did review the CT scan personally and discussed the case with Dr. Dumont. On the CT scan it does appear that the bone is intact and has no signs of osteomyelitis. There is some signs of mild edema and inflammation in the muscle and the tendon. But mostly appears to be limited to the subcutaneous tissues. She does have three-vessel flow to the foot. She has not recently been on antibiotics. She was on antibiotics in August, as well as steroids. She is not currently on steroids. She denies any fever or chills. She denies any chest pain or shortness of breath. She denies a productive cough. She denies any vomiting. She denies any diarrhea or blood in her stools. She simply says she has no appetite. She has been walking on her lower extremity. She has no claudication type symptoms in the extremity. She has constant pain and drainage from her right lower extremity. There is mild edema and redness in the foot and ankle today of the right lower extremity. Very large dry necrotic eschar on the wound and she a ppears to have dry gangrene PFSH All Active Problems (Updated 11/13/21 @ 14:40 by Susana Richey DO) Leukocytosis (leucocytosis) (Acute) Asthma (Chronic) Hypokalemia due to loss of potassium (Acute) Hypoalbuminemia due to protein-calorie malnutrition (Acute) Dry gangrene (Acute) Smoker unmotivated to quit (Acute) Open ankle wound (Acute) Subcutaneous air (Acute) Wound infection (Acute) CAP (community acquired pneumonia) (Acute) Pain, dental (Acute) Medical History (Updated 11/13/21 @ 14:40 by Susana Richey DO) Narcotic abuse in remission Tachycardia Surgical History (Updated 11/13/21 @ 10:15 by Jazzy Celaya DO) History of adenoidectomy S/p bilateral myringotomy with tube placement Social History Smoking/Tobacco Use Status: Current every day Tobacco Type: cigarettes Smoking risk assessment performed?: Yes Alcohol Intake: never Drug use: Current Sobriety Substance use type: former substance user Do you feel safe at home: Yes Do you feel safe in your relationship?: Yes Exam Const General: cooperative, in distress, anxious and frail appearing Nutritional Appearance: cachectic Orientation: alert, awake and not oriented x3 HENMT Ears: hearing grossly normal bilaterally Mouth: moist mucous membranes Teeth and gingiva: poor dentition and other (Multiple missing teeth) Other: Multiple piercings Eyes Alignment and Position: position normal Sclera: sclerae normal Pupils: PERRL Resp Effort & Inspection: normal respiratory effort and able to speak in complete se ntences Other: Expiratory wheeze at the bases bilaterally Cardio Rate: regular rate Rhythm: regular rhythm GI Other: Soft and nontender. She has had tubal ligation and postsurgical changes noted. No hernias Skin Other: Large black necrotic eschar on the medial lateral malleolus of the right lower extremity. She does have a intact dorsalis pedis pulse. She does have grossly good sensation. There is fluid leaking from both wounds. There is no active bleeding. There is edema blanching erythema of the right lower extremity. Sensation appears to be intact. She does not do a lot of movement of the extremity because that causes pain. Severe muscle wasting Results Last Vital Signs Temp 36.8 C 11/13/21 13:39 Pulse 92 H 11/13/21 13:39 Resp 18 11/13/21 13:39 BP 98/59 L 11/13/21 13:39 Pulse Ox 98 11/13/21 13:39 Labs Result diagrams: 11/13/21 10:10 11/13/21 14:30 Labs: Laboratory Results - last 24 hr 11/13/21 11/13/21 11/13/21 10:10 10:10 10:10 WBC RBC Hgb Hct MCV MCH MCHC RDW Plt Count MPV Immature Gran % Neutrophils % Band Neutrophils % Lymphocytes % Monocytes % Eosinophils % Basophils % Nucleated RBC % Absolute Neutrophils Absolute Lymphocytes Absolute Monocytes Absolute Eosinophils Absolute Basophils RBC Morphology ESR 87 H VBG Lactate 1.6 H Sodium 138 Potassium 2.6 L* Chloride 102 Carbon Dioxide 24.8 Anion Gap 11.2 H BUN 24 H Creatinine 0.8 Estimated GFR/1.73 m2 >= 60.00 Glucose 186 H Calcium 9.1 Total Bilirubin 0.2 AST 16 ALT 27 Alkaline Phosphatase 129 H C-Reactive Protein 11.51 H Total Protein 8.5 H Albumin 2.4 L Urine Opiates Screen Urine Methadone Screen Ur Barbiturates Screen Ur Tricyclics Screen Ur Amphetamines Screen U Benzodiazepines Scrn Urine Cocaine Screen Ur THC Screen COVID-19 Source SARS-CoV-2 (PCR) 11/13/21 11/13/21 11/13/21 10:10 13:07 13:12 WBC 28.17 H* RBC 4.46 Hgb 11.7 Hct 37.6 MCV 84.3 MCH 26.2 L MCHC 31.1 L RDW 16.7 H Plt Count 612 H MPV 9.5 Immature Gran % 0.0 Neutrophils % 79.0 Band Neutrophils % 2 Lymphocytes % 11.0 Monocytes % 5.0 Eosinophils % 1.0 Basophils % 2.0 Nucleated RBC % 0 Absolute Neutrophils 22.82 H Absolute Lymphocytes 3.10 Absolute Monocytes 1.41 H Absolute Eosinophils 0.28 Absolute Basophils 0.56 H RBC Morphology Normal ESR VBG Lactate Sodium Potassium Chloride Carbon Dioxide Anion Gap BUN Creatinine Estimated GFR/1.73 m2 Glucose Calcium Total Bilirubin AST ALT Alkaline Phosphatase C-Reactive Protein Total Protein Albumin Urine Opiates Screen Urine Methadone Screen Ur Barbiturates Screen Ur Tricyclics Screen Ur Amphetamines Screen U Benzodiazepines Scrn Urine Cocaine Screen Ur THC Screen COVID-19 Source Cancelled NASAL SARS-CoV-2 (PCR) Cancelled Negative 11/13/21 11/13/21 13:47 14:00 WBC RBC Hgb Hct MCV MCH MCHC RDW Plt Count MPV Immature Gran % Neutrophils % Band Neutrophils % Lymphocytes % Monocytes % Eosinophils % Basophils % Nucleated RBC % Absolute Neutrophils Absolute Lymphocytes Absolute Monocytes Absolute Eosinophils Absolute Basophils RBC Morphology ESR VBG Lactate Sodium Cancelled Potassium Cancelled Chloride Cancelled Carbon Dioxide Cancelled Anion Gap Cancelled BUN Cancelled Creatinine Cancelled Estimated GFR/1.73 m2 Cancelled Glucose Cancelled Calcium Cancelled Total Bilirubin AST ALT Alkaline Phosphatase C-Reactive Protein Total Protein Albumin Urine Opiates Screen Negative Urine Methadone Screen Negative Ur Barbiturates Screen Negative Ur Tricyclics Screen Negative Ur Amphetamines Screen Negative U Benzodiazepines Scrn Negative Urine Cocaine Screen Negative Ur THC Screen Negative COVID-19 Source SARS-CoV-2 (PCR)
[2021-11-13 14:55] LABS: Anion Gap 9.4 mmol/L (3-11); BUN 18 mg/dL (7-18); CO2 22.6 mmol/L (21.0-32.0); CREATININE 0.5 mg/dL (0.55-1.02); Calcium 8.1 mg/dL (8.5-10.1); Chloride 107 mmol/L (98-107); Glucose 91 mg/dL (74-106); Potassium 3.5 mmol/L (3.5-5.1); Sodium 139 mmol/L (136-145)
--- NOTE | 2021-11-13 15:02 | NUR.NOTE ---
Nursing Note:Surgeon & anesthesia providers in to see pt, consent obtained. Report given to ADJUSTO WRITER OPERATORZOE Rincon, pt transported to PACU awaiting OR.
[2021-11-13] MEDS: Lactated Ringers 1,000 ML 75 ML IV (15:11)
[2021-11-13 15:26] LABS: Hemoglobin A1C 5.1 % (<5.7)
--- NOTE | 2021-11-13 15:45 | SKI_PTH ---
PATIENT: Nicol Akhtar LOC: [id number]#:[id number] AGE/SX: 36/F ROOM: RE11/13/[address]: Susana Richey : 1985 BED: A DIS: 12/14/2021 SPEC #: [id number] RECD: 11/13/21 16:58 STATUS: BLAKE REUzair #: [id number] KOBY: 11/13/21 15:[address]: Susana Richey DEPT: Surgical Specimen RECD BY: Laurence Gilman ENTERED: 11/13/21 16:59 SP TYPE: ESPERANZA MACIAS DR: Isaac Nuno Tissues: 1 - SKIN BIOPSY(SHAVE/PUNCH) Procedures: GROSS AND MICRO LEVEL 3 Comments: [id number]
[2021-11-13] MEDS: Cellulose,Oxidized 4X8 1 PACKET MC (15:59)
--- NOTE | 2021-11-13 16:35 | MCONE_ITS ---
Date of service: 11/13/21 Time of Service: 16:36 Assessment and Plan Assessment and plan (1) Wound infection: Status: Acute Assessment and plan: DDx: primary wound infection; pyoderma gangrenosum, vasculitis/thrombotic complication of COVID-19. Await bx results. I added flagyl to the antibiotic regimen of vanco/cipro. I am also checking the patient for HIV and hepatitis. R/o IBD. (2) Dry gangrene: Status: Acute Assessment and plan: As above (3) Hypokalemia due to loss of potassium: Status: Acute Assessment and plan: Repleted. Check magnesium. (4) Hypoalbuminemia due to protein-calorie malnutrition: Status: Acute Assessment and plan: Check UA to assess for urinary albumin losses. Encourage nutrition - nutrition is consulted. (5) Narcotic abuse in remission: Assessment and plan: Continue suboxone. Check HIV/hepatitis studies. History of Present Illness History of Present Illness Chief Complaint: Consult for help with medical management of a R ankle wound Narrative: Ms Akhtar is a 36 year old female with PMHx of narcotic abuse, on suboxone, as well as h/o tachycardia, on propranolol, asthma, chronic protein-calorie malnutrition with BMI of 16.6, addmitted to general surgery, whom hospitalist service was asked to see for R ankle wounds present x 6 weeks. The patient states that in July she had COVID and pneumonia and that the wound appeared on her R ankle at that time. She also endorses that her boot was rubbing against her R ankle. It started as a small spot and then increased in size, getting to be especially bad in the last 2 weeks. Denies fevers at home. She is afebrile in the ER. Her ER exam was significant for preserved pedal pulses, serosanguenous drainage from her R ankle wounds, elevated white count of 28.17. She is somewhat hypotensive with BP of 92/51. Her LA is 1.6 CTA of RLE revealed preserved circulation. She is profoundly hypokalemic. She denies diarrhea, blood in stool, h/o eating disorder. She states that she lost 30 lbs during her COVID illness. She was empirically initiated on vancomycin/cipro. General surgery and orthoped ics are considering amputation of the distal RLE as she appears to have dry gangrene. She just had a surgical biopsy of her R ankle. Consults Consult date: 11/13/21 Requesting physician: Susana Richey Review of Systems All systems reviewed & are unremarkable except as noted in HPI and below PFSH All Active Problems (Updated 11/13/21 @ 14:40 by Susana Richey DO) Leukocytosis (leucocytosis) (Acute) Asthma (Chronic) Hypokalemia due to loss of potassium (Acute) Hypoalbuminemia due to protein-calorie malnutrition (Acute) Dry gangrene (Acute) Smoker unmotivated to quit (Acute) Open ankle wound (Acute) Subcutaneous air (Acute) Wound infection (Acute) CAP (community acquired pneumonia) (Acute) Pain, dental (Acute) Medical History (Updated 11/13/21 @ 14:40 by Susana Richey DO) Narcotic abuse in remission Tachycardia Surgical History (Updated 11/13/21 @ 10:15 by Jazzy Celaya DO) History of adenoidectomy S/p bilateral myringotomy with tube placement Social History Smoking/Tobacco Use Status: Current every day Tobacco Type: cigarettes Smoking risk assessment performed?: Yes Alcohol Intake: never Drug use: Current Sobriety Substance use type: former substance user Do you feel safe at home: Yes Do you feel safe in your relationship?: Yes Exam Narrative Exam Narrative: General: Tearful anxious malnourished appearing female, A&Ox3 Neurological: A&Ox3, no focal deficits Psychiatric: Appropriate speech pattern/content Skin: RLE dressed - I did not take down the dressing to look at the wounds, but was able to examine a photo. No obvious rashes/bruises HEENT: Atraumatic, normocephalic, EOMI, dry MM, no evidence of chronic vomiting based on appearance of teeth, clear oropharynx, no submandibular or cervical lymphadenopathy, no goiter or JVD Cardiovascular: RRR, tachycardic, no m/r/g Lungs: CTAB Gastrointestinal: soft,nontender, nondistended Genitourinary: has a patel catheter Extremities: no edmea BLE's, distal RLE dressed. 2+ pedal pulses In BLEs. Results Last Vital Signs Temp 36.2 C L 11/13/21 16:29 Pulse 95 H 11/13/21 16:29 Resp 24 11/13/21 16:29 BP 87/59 L 11/13/21 16:29 Pulse Ox 98 11/13/21 16:29 Labs Result diagrams: 11/13/21 10:10 11/13/21 14:30 Labs: Laboratory Results - last 24 hr 11/13/21 11/13/21 11/13/21 10:10 10:10 10:10 WBC RBC Hgb Hct MCV MCH MCHC RDW Plt Count MPV Immature Gran % Neutrophils % Band Neutrophils % Lymphocytes % Monocytes % Eosinophils % Basophils % Nucleated RBC % Absolute Neutrophils Absolute Lymphocytes Absolute Monocytes Absolute Eosinophils Absolute Basophils RBC Morphology ESR 87 H VBG Lactate 1.6 H Sodium 138 Potassium 2.6 L* Chloride 102 Carbon Dioxide 24.8 Anion Gap 11.2 H BUN 24 H Creatinine 0.8 Estimated GFR/1.73 m2 >= 60.00 Glucose 186 H Hemoglobin A1c Calcium 9.1 Total Bilirubin 0.2 AST 16 ALT 27 Alkaline Phosphatase 129 H C-Reactive Protein 11.51 H Total Protein 8.5 H Albumin 2.4 L Urine Opiates Screen Urine Methadone Screen Ur Barbiturates Screen Ur Tricyclics Screen Ur Amphetamines Screen U Benzodiazepines Scrn Urine Cocaine Screen Ur THC Screen COVID-19 Source SARS-CoV-2 (PCR) 11/13/21 11/13/21 11/13/21 10:10 10:10 13:07 WBC 28.17 H* RBC 4.46 Hgb 11.7 Hct 37.6 MCV 84.3 MCH 26.2 L MCHC 31.1 L RDW 16.7 H Plt Count 612 H MPV 9.5 Immature Gran % 0.0 Neutrophils % 79.0 Band Neutrophils % 2 Lymphocytes % 11.0 Monocytes % 5.0 Eosinophils % 1.0 Basophils % 2.0 Nucleated RBC % 0 Absolute Neutrophils 22.82 H Absolute Lymphocytes 3.10 Absolute Monocytes 1.41 H Absolute Eosinophils 0.28 Absolute Basophils 0.56 H RBC Morphology Normal ESR VBG Lactate Sodium Potassium Chloride Carbon Dioxide Anion Gap BUN Creatinine Estimated GFR/1.73 m2 Glucose Hemoglobin A1c 5.1 Calcium Total Bilirubin AST ALT Alkaline Phosphatase C-Reactive Protein Total Protein Albumin Urine Opiates Screen Urine Methadone Screen Ur Barbiturates Screen Ur Tricyclics Screen Ur Amphetamines Screen U Benzodiazepines Scrn Urine Cocaine Screen Ur THC Screen COVID-19 Source Cancelled SARS-CoV-2 (PCR) Cancelled 11/13/21 11/13/21 11/13/21 13:12 13:47 14:00 WBC RBC Hgb Hct MCV MCH MCHC RDW Plt Count MPV Immature Gran % Neutrophils % Band Neutrophils % Lymphocytes % Monocytes % Eosinophils % Basophils % Nucleated RBC % Absolute Neutrophils Absolute Lymphocytes Absolute Monocytes Absolute Eosinophils Absolute Basophils RBC Morphology ESR VBG Lactate Sodium Cancelled Potassium Cancelled Chloride Cancelled Carbon Dioxide Cancelled Anion Gap Cancelled BUN Cancelled Creatinine Cancelled Estimated GFR/1.73 m2 Cancelled Glucose Cancelled Hemoglobin A1c Calcium Cancelled Total Bilirubin AST ALT Alkaline Phosphatase C-Reactive Protein Total Protein Albumin Urine Opiates Screen Negative Urine Methadone Screen Negative Ur Barbiturates Screen Negative Ur Tricyclics Screen Negative Ur Amphetamines Screen Negative U Benzodiazepines Scrn Negative Urine Cocaine Screen Negative Ur THC Screen Negative COVID-19 Source NASAL SARS-CoV-2 (PCR) Negative 11/13/21 14:30 WBC RBC Hgb Hct MCV MCH MCHC RDW Plt Count MPV Immature Gran % Neutrophils % Band Neutrophils % Lymphocytes % Monocytes % Eosinophils % Basophils % Nucleated RBC % Absolute Neutrophils Absolute Lymphocytes Absolute Monocytes Absolute Eosinophils Absolute Basophils RBC Morphology ESR VBG Lactate Sodium 139 Potassium 3.5 Chloride 107 Carbon Dioxide 22.6 Anion Gap 9.4 BUN 18 D Creatinine 0.5 L D Estimated GFR/1.73 m2 >= 60.00 Glucose 91 D Hemoglobin A1c Calcium 8.1 L Total Bilirubin AST ALT Alkaline Phosphatase C-Reactive Protein Total Protein Albumin Urine Opiates Screen Urine Methadone Screen Ur Barbiturates Screen Ur Tricyclics Screen Ur Amphetamines Screen U Benzodiazepines Scrn Urine Cocaine Screen Ur THC Screen COVID-19 Source SARS-CoV-2 (PCR) Imaging Additional studies: XR R ankle: Three views of the right ankle reveal severe soft tissue deficiencies bilaterally with air-gas in soft tissues. There are no fractures nor widening of the mortise.? No radiopaque foreign bod y.? No obvious radiographic evidence of osteomyelitis.? No vascular calcification. CT w/ contrast RLE: Soft tissue findings as above, not associated with a distinct focal abscess nor obvious osteomyelitis.? If clinically indicated follow-up MRI can be performed
--- NOTE | 2021-11-13 16:55 | W.ANESPOSTOP ---
Postoperative Evaluation Date, Time and Location Date Performed: 11/13/21 Time Performed: 16:55 Patient Location: Day Surgery Unit Vital Signs Most Recent Imported Vital Signs: Most Recent Vital Signs Temp Pulse Resp BP Pulse Ox 36.2 C L 94 H 24 93/42 L 98 11/13/21 16:49 11/13/21 16:49 11/13/21 16:49 11/13/21 16:49 11/13/21 16:49 Pain Score Most Recent Pain Score: Most Recent Pain Score Pain Level 0 11/13/21 16:49 Assessment Mental Status: Awake (Alert & Oriented to Patient Baseline) Airway and Respiratory Function: Patent airway with normal (patient baseline) respiratory exam Cardiovascular Function: Hemodynamically Stable Hydration Status: Adequately Hydrated Nausea & Vomiting: No Nausea or Vomiting Pain: Pt. Denies Any Pain Peripheral Nerve Block: Patient did not receive a nerve block
--- NOTE | 2021-11-13 17:11 | ROE_ITS ---
Date of service: 11/13/21 Time of Service: 17:11 Operative Note Operative Note DATE OF PROCEDURE: 11/13/21 PRE-OP DIAGNOSIS: dry gangrene RLE same down to muscle/tendons- but this do appear viable fat was necrotic/ PROCEDURE: I&D SURGEON: Susana Richey MATHEMATICAL SCIENCES PROFESSOR: Magui Ruvalcaba Refer to Anesthesia Record ESTIMATED BLOOD LOSS: 30 PATHOLOGY: other COMPLICATIONS: None Patient was transported to: PACU Procedure Description: -Cultures are taken of the skin prior to prepping with Betadine. -Cultures are taken of the wound after prepping with Betadine. She did receive Cipro and Vanco prior to cultures. Wound dimensions are: Medial?right 10x8cm lateral: 9x8cm -Measurements are postprocedure. The fat is necrotizd/liquified. Patient presented to the ER today with exceedingly large ankle ulcers on her right lower extremity bilaterally. See above size and description. She has evidence of dried gangrene and is stripping of purulent discharge. She has an elevated white count. She has had no fever. She does not complain of pain. She does have a history of substance abuse but denies IVDA. She did have a CT scan performed prior to surgery which showed some mild edema on the tendons and tendons and muscles but no significant infection. There is no signs of osteomyelitis. She had 3 vessel runoff to the foot. She does have a good dorsalis pedis pulse. There is evidence of cellulitis in the rest of the foot and lower extremity as well. Informed consent is obtained explaining risks and benefits of the procedure including but not limited to: Bleeding, infection, pneumonia, blood clots, need for transfusion. Reaction to anesthesia, chronic pain or chronic numbness, loss of motor or sensory function, limb loss. Patient is brought to the operative suite. Spinal anesthesia is ministered per the department of anesthesia. Patient is then placed in the supine position with all bony surfaces padded. He is prepped and draped in the usual sterile fashion using a Betadine scrub solution. Timeout is performed. She did receive antibiotics in the ER. The S deb is debrided off. A curette is used to debride all of the underlying subcutaneous tissue. The fat is completely liquid 5/necrotic. Tissue was sent for pathologic sample as well as cultures. All necrotic tissue was removed via sharp dissectionelectrocautery is used to provide hemostasis. The underlying tendons and muscles are intact. There is no crepitus to the tissue. The bone feels firm. There do not appear to be any abscess collection under the muscle. The wound is then irrigated with 3 L of saline. 4 pieces of Surgicel is placed over the wound to help with bleeding. Xeroform is placed over top of this. Gauze ABDs are placed over the wound and wrapped with Kerlix and ABD. Patient tolerated the procedure well without complication and transferred to recovery room in stable condition. Patient was apprised of findings at the time of surgery. Hospitalist service will be consulted for her multiple medical comorbidities. Plus physical therapy, dietary, and care management.
[2021-11-13] MEDS: ACETAMINOPHEN 1,000 MG/100 ML BTL 400 MG IVPB ×2 (17:19→22:03)
[2021-11-13] MEDS: Normal Saline 1,000 ML 125 ML IV (17:19)
[2021-11-13] MEDS: IRON SUCROSE COMPLEX 200 MG in Normal Saline 100 ML 400 MG IVPB (18:10)
[2021-11-13] MEDS: Buprenorphine/Naloxone 2 mg/0.5 mg FILM 3 EACH SL (19:53)
[2021-11-13] MEDS: Famotidine 20 MG/2 ML VIAL IVP (19:54)
[2021-11-13] MEDS: Ascorbic Acid 500 MG TAB PO (19:54)
[2021-11-13] MEDS: Ketorolac 15 MG/ML VIAL IVP (19:54)
[2021-11-13 22:06] LABS: Bilirubin Negative (Negative); Blood Moderate (Negative); Clarity Sl Cloudy (Clear); Glucose Negative (Negative); Ketones Negative (Negative); Leukocyte Esterase Negative (Negative); Nitrite Negative (Negative); Specific Gravity 1.015 (1.005-1.025)
[2021-11-13 22:34] LABS: Bacteria Rare HPF (Negative); C & S Indicated? No; Casts Negative LPF (Negative); Crystals Negative HPF (Negative); Epithelial Cells Few HPF (Negative); Mucus Negative (Negative)
[2021-11-13 22:37] LABS: Lab Add On Test DONE
[2021-11-13 22:48] LABS: GGT 34 U/L (5-55)
[2021-11-14] MEDS: Ketorolac 15 MG/ML VIAL IVP ×4 (00:17→18:23)
[2021-11-14] MEDS: Normal Saline Flush 10 ML SYR IVP ×3 (00:17→18:23)
[2021-11-14] MEDS: CIPROFLOXACIN 400 MG/200 ML BAG 200 MG IVPB ×2 (00:17→12:41)
[2021-11-14] MEDS: VANCOMYCIN/WATER (PEG) 1 GM/200 ML BAG IV (00:18)
[2021-11-14] MEDS: Normal Saline 1,000 ML 125 ML IV (02:52)
[2021-11-14] MEDS: ACETAMINOPHEN 1,000 MG/100 ML BTL 400 MG IVPB ×2 (04:16→11:19)
[2021-11-14] MEDS: Famotidine 20 MG/2 ML VIAL IVP ×2 (05:36→18:23)
[2021-11-14 06:18] VITALS: BP 97/61; PULSE 83; RESP 16; TEMP 37; O2SAT 93
[2021-11-14 06:57] LABS: Abs Immature Grans 0.06 10^3/uL (0.0-0.06); Absolute Basophil Count 0.03 10^3/uL (0.0-0.2); Absolute Lymphocyte Count 1.82 10^3/uL (1.2-3.4); Absolute Neutrophil Count 10.88 10^3/uL (1.2-6.7); Basophils % 0.2; Eosinophils % 2.2; HCT 31.4 % (36.0-46.0); HGB 9.3 g/dL (11.2-15.7); Immature Grans % 0.4; Lymphocytes % 13.1; MCH 26.3 pg (27.0-33.0); MCHC 29.6 % (32.0-36.0); MCV 88.7 fL (80-95); MPV 9.6 fL (8.0-11.0); Monocytes % 5.6; Neutrophils % 78.5; Nucleated RBC 0 %; Platelet Count 381 10^3/uL (130-400); RBC 3.54 10^6/uL (3.93-5.22); RDW 16.6 % (11.7-14.6); RDW-SD 54.9 fL; WBC 13.86 10^3/uL (4.4-10.8)
[2021-11-14 07:04] LABS: ESR 41 mm/hr (0-20)
[2021-11-14 07:05] LABS: Absolute Monocyte Count 0.78 10^3/uL (0.1-0.8)
[2021-11-14 07:20] LABS: ALT 15 U/L (14-59); AST 12 U/L (15-37); Albumin 1.8 g/dL (3.4-5.0); Alkaline Phosphatase 91 U/L (46-116); Anion Gap 9.5 mmol/L (3-11); BUN 11 mg/dL (7-18); Bilirubin, Total 0.2 mg/dL (0.2-1.0); CO2 20.5 mmol/L (21.0-32.0); CREATININE 0.6 mg/dL (0.55-1.02); Chloride 111 mmol/L (98-107); Glucose 84 mg/dL (74-106); Potassium 3.5 mmol/L (3.5-5.1); Sodium 141 mmol/L (136-145); Total Protein 6.4 g/dL (6.4-8.2)
[2021-11-14 07:31] VITALS: BP 98/60; PULSE 100; RESP 18; TEMP 36.3; O2SAT 96
[2021-11-14 07:33] LABS: C-Reactive Protein 11.11 mg/dL (0.0-0.3); Magnesium 1.6 mg/dL (1.8-2.4)
[2021-11-14 07:35] LABS: PHOSPHORUS 4.7 mg/dL (2.6-4.7)
[2021-11-14 08:02] LABS: Vitamin B12 389 pg/mL (193-986)
[2021-11-14] MEDS: Protein Nutritional Supplement 16 GM 1 OUNCE PACKET PO (08:07)
[2021-11-14] MEDS: Ascorbic Acid 500 MG TAB PO ×2 (08:08→22:47)
[2021-11-14] MEDS: Zinc Sulfate 220 MG TAB PO (08:08)
[2021-11-14 08:17] LABS: Folate > 20.0 ng/mL (8.6-20.0)
[2021-11-14] MEDS: Potassium Chloride 20 MEQ TABCR 40 MEQ PO (08:20)
[2021-11-14] MEDS: MAGNESIUM SULFATE 2 GM/50 ML BAG IVPB (08:21)
[2021-11-14 08:33] LABS: Lab Add On Test DONE
--- NOTE | 2021-11-14 08:49 | PDOC.CMIN ---
- If Service Date Differs Date of service: 11/14/21 Time of Service: 08:49 Care Management Initial Assess REASON FOR HOSPITALIZATION:: Leukocytosis, Hypoalbuminemia due to protein-calorie malnutrition, Dry gangrene PAST MEDICAL HISTORY/PAST SURGICAL HISTORY:: All Active Problems (Updated 11/13/21 @ 14:40 by Susana Richey DO). Leukocytosis (leucocytosis) (Acute). Asthma (Chronic). Hypokalemia due to loss of potassium (Acute). Hypoalbuminemia due to protein-calorie malnutrition (Acute). Dry gangrene (Acute). Smoker unmotivated to quit (Acute). Open ankle wound (Acute). Subcutaneous air (Acute). Wound infection (Acute). CAP (community acquired pneumonia) (Acute). Pain, dental (Acute). Medical History (Updated 11/13/21 @ 14:40 by Susana Richey DO). Narcotic abuse in remission. Tachycardia. Surgical History (Updated 11/13/21 @ 10:15 by Jazzy Celaya DO). History of adenoidectomy. S/p bilateral myringotomy with tube placement PREVIOUS FUNCTIONAL STATUS/SOCIAL/FAMILY SUPPORTS:: Nicol lives in [facility] with her s/o Solo, their children and grandchild. She is recently unemployed and does not drive. She is independent at baseline. CURRENT FUNCTIONAL STATUS:: Nicol was sitting up in bed when KTAARZYNA met with her. She was crying and shared that she has extreme anxiety about being away from her family. Her youngest daughter in two, and they've never been apart. Nicol mentioned that she recently established care with Dr. Nuno, but prior to that she hadn't seen a doctor in quite some time. Nicol engaged well in conversation and shared her concerns about waiting so long to get her wounds looked at. She shared with KATARZYNA that she may need to get part of her leg amputated. KATARZYNA asked Nicol if she recognised that her wounds were to that point, and she agreed that she did especially after it became odorous. KATARZYNA notified RN about her report of increased anxiety and they plan to give Visteril before bed. Niocl is good with that plan. Nicol thanked KATARZYNA for talking with her. Nicol was provided with a word search book and feels it will help her get her mind off some of her worries. ADVANCE DIRECTIVES:: None Has patient been provided with info about the portal/API?: Yes Did the patient sign up for the portal?: No CODE STATUS:: Full Code INSURANCE COVERAGE / FINANCIAL ISSUES:: Medicaid CURRENT HOME/COMMUNITY SERVICES/EQUIPMENT:: None PRIMARY CARE PHYSICIAN:: Isaac Nuno POTENTIAL DISCHARGE NEEDS:: Follow up appointments, [facility] RN/PT, IV Meds (if indicated) PATIENT/FAMILY EDUCATION NEEDS:: Review discharge instructions, limitations, medications and plan to follow up with community providers. TRANSPORTATION:: via private vehicle with significant other Solo. PLAN:: Nicol is being followed by surgery. She requires IV abx and surgical intervention for gangrenous wound(s) on her right ankle. Nicol went to the OR today for debridment and washout, cultures are pending. She is planning on having a MRI tomorrow and going back to the OR for a repeat debridement and washout. Anticipate Nicol will be discharged home with new [facility] RN/PT via private vehicle with family when medically ready. She will follow up with community providers and discharge plan of care as prescribed.
[2021-11-14 08:59] LABS: FREE T4 2.75 ng/dL (0.76-1.46)
[2021-11-14 09:02] LABS: TSH < 0.01 uIU/mL (0.36-3.74)
[2021-11-14 09:03] LABS: Procalcitonin 0.1 ng/mL
--- NOTE | 2021-11-14 09:31 | IN_ITS ---
Date of service: 11/14/21 Time of Service: 09:31 PT Notes Physical Therapy Inpatient Initial Evaluation Date: 11/14/2021 Referring Doctor: Susana Richey MD PT Orders: PT CONSULT: Eval/Treat. Precautions: Fall. Standard. WBAT on B LE with AD. Patient Profile/Admitting Diagnosis: Nicol is a 36-year-old female with bilateral ankle wounds for the past 6 weeks S/P irrigation and debridement and S/P R ankle biopsy on postoperative day 1. Patient is diagnosed with wound infection, dry gangrene, hypokalemia, hypoalbunemia, and narcotic abuse in remission. PMHX: All Active Problems?(Updated 11/13/21 @ 14:40 by Susana Richey DO) Leukocytosis (leucocytosis) (Acute) Asthma (Chronic) Hypokalemia due to loss of potassium (Acute) Hypoalbuminemia due to protein-calorie malnutrition (Acute) Dry gangrene (Acute) Smoker unmotivated to quit (Acute) Open ankle wound (Acute) Subcutaneous air (Acute) Wound infection (Acute) CAP (community acquired pneumonia) (Acute) Pain, dental (Acute) Medical History?(Updated 11/13/21 @ 14:40 by Susana Richey DO) Narcotic abuse in remission Tachycardia Surgical History?(Updated 11/13/21 @ 10:15 by Jazzy Celaya DO) History of adenoidectomy S/p bilateral myringotomy with tube placement Social History/Home Situation: Patient lives with somebody in a private home with 4 steps to enter with no rails. She states that for the past month she has decided to use a single-point cane due to balance issues. Reports that she fallen 5x in the past month. Equipment Owned/DME: [facility] Subjective: Agreeable to PT consult. States that she is hoping she can get her suboxone soon enough. Cooperative. Complained of 6-7/10 pain in the R foot and ankle with ambulation that subsided a bit with rest. Objective: General Observation: Emotionally labile. Cachexic. IV in the R UE. Moffett catheter in place. Dry wound on the sole of the L foot overlying the 3-4th metatarsal heads. Nurse Jeanna informed. Wound dressing to R ankle and foot. Swelling seen in R toes and foot. Mental Status: Alert and oriented as to person, place, time, and purpose. Able to pay attention, focus, and respond appropriately. Pain: 2-3/10 in in the R ankle, 6-7/10 after ambulation activity ROM: Right Upper Extremity: Shoulder Flexion WFL. Shoulder abduction WFL. Elbow flexion WFL. Wrist flexion WFL. Functional opening and closing of hand WFL. Left Upper Extremity: Shoulder Flexion WFL. Shoulder abduction WFL. Elbow flexion WFL. Wrist flexion WFL. Functional opening and closing of hand WFL. Right Lower Extremity: Hip flexion WFL. Hip abduction WFL. Knee flexion WFL. Ankle dorsiflexion NT. Ankle plantarflexion NT. Left Lower Extremity: Hip flexion WFL. Hip abduction WFL. Knee flexion WFL. Ankle dorsiflexion WFL. Ankle plantarflexion WFL. Strength: Right Upper Extremity: Shoulder flexors 4-/5. Shoulder abductors 4-/5. Elbow flexors 4-/5. Elbow extensors 4-/5. Knitting Supervisor strong. Left Upper Extremity: Shoulder flexors 4-/5. Shoulder abductors 4-/5. Elbow flexors 4-/5. Elbow extensors 4-/5. Knitting Supervisor strong. Right Lower Extremity: Hip flexors 4-/5. Hip abductors 4-/5. Knee flexors 4-/5. Knee extensors 4-/5. Ankle dorsiflexors NT. Ankle plantarflexors NT. Left Lower Extremity: Hip flexors 4-/5. Hip abductors 4-/5. Knee flexors 4-/5. Knee extensors 4-/5. Ankle dorsiflexors NT. Ankle plantarflexors NT. Bed Mobility/Transfers: Supine to sit with stand by assist with HOB 30 degrees Sit to stand with contact-guard assist Stand to sit with contact-guard assist Bed to reclining chair with contact-guard assist Gait: Instructed patient with level surface ambulation of 300feet requiring contact-guard assist. Able to occasionally put weight on right toes with report of pain 6?7/10. Balance: Static Sitting: Normal Dynamic Sitting: Normal Static Standing: Unable Dynamic Standing: Unable Special Tests: Mobility Limitations Standardized Measure [facility] AM-PAC 6 clicks Basic Mobility Inpatient Short Form: Raw Score: 20 CMS Score: 36% deficit Informed Consent/Education: Patient was instructed in purpose of PT consult and plan of care. Agreeable to proceed with established PT POC to achieve personal goals. Assessment: Nicol demonstrates functional mobility decline requiring the use fof FWW for all transfer and ambulation due to limited weight bearing on the R LE. MRI of R foot was made in order to rule out osteomyelitis. Patient presents with clinical signs and symptoms consistent with current/admitting diagnoses that have resulted to mobility limitations, gait instability, generalized weakness, and overall ADL decline as demonstrated by the following impairment level findings: 1. Decreased strength to B ankle major muscle groups 2. Impaired standing balance 3. Impaired activity tolerance 4. Limitation of joint range of motion in R ankle 5. Pain in R ankle at rest and with movement 6. Swelling in R foot and toes Impairments are contributing to the following functional limitations: 1. Decline in bed mobility skills 2. Decline in transfer skills 3. Difficulty with ambulation without assistive device and physical assistance 4. Increased completion time for mobility ADL performance 5. Increased risk for falls 6. Difficulty with managing steps alone safely Patient is assessed as a 68282 moderate complexity based on the following: History: 36-year-old femalewith past medical history as indicated above Examination: Demonstrable impairment in strength, balance, and mobility level with underlying impairments and functional limitations as exhibited above as well as deficit score of 36% utilizing the [facility] Mobility Inpatient Short Form Presentation: Evolving Decision Makin moderate complexity Goals: Goals X1 week 1. Supine-Sit independent 2. Sit-Supine independent 3. Sit-Stand independent 4. Stand-Sit independent with FWW 5. Bed-Chair independent with FWW 6. Chair-Bed independent with FWW 7. Independent gait on level surface with use of FWW for at least 500 feet without report of pain nor dyspnea 8. Independent stair negotiation while holding onto no rails for at least 6 steps without report of pain nor dyspnea 9. Independent with home exercise program 10. Good static and dynamic standing balance/tolerance Plan of Care/Treatment Plan: 1-2x/day, 7 days/week x 1 week. Plan of care has been reviewed with the SCHOOL TRANSPORTATION DIRECTOR providing the service under Physical Therapy direction. Initiate Physical Therapy intervention for pain management as needed, strengthening, bed mobility, transfers, gait, stairs, balance training, and use of assistive device. DISCHARGE RECOMMENDATIONS: [] Home with no services [] [] Home with services [specify] [X] Home with outpatient PT. Patient will benefit from outpatient PT services in order to progress mobility level using least restrictive assistive ambulatory device while progressing mobility level to PLOF that will increase ability of patient to remain at home. [] SNF for continued rehabilitation [] [] [facility] [] [] SNF versus LTC based on ability to participate and progress [] TREATMENT CODE/TIME: 60800d 20 minutes, 33916 x 12 minutes beginning at 9:31 AM. Thank you for the opportunity to participate in the care of this patient. Funmi Castañeda PT, DPT, CLT [facility] [place], [place]
[2021-11-14] MEDS: Cyanocobalamin 1000 MCG/ML VIAL IM/SC (11:23)
[2021-11-14] MEDS: Enoxaparin 40 MG/0.4 ML SYR SC (11:24)
[2021-11-14] MEDS: metroNIDAZOLE 500 MG/100 ML BAG 100 MG IVPB ×3 (11:33→21:25)
--- NOTE | 2021-11-14 12:24 | PHA.REVIEW ---
Pharmacy Admission Review - Admission Clinical Review (Last Updated 11/13/21 @ 10:15 by Jazzy Celaya DO) Leukocytosis (leucocytosis) (Acute) Hypokalemia due to loss of potassium (Acute) Hypoalbuminemia due to protein-calorie malnutrition (Acute) Dry gangrene (Acute) Smoker unmotivated to quit (Acute) Open ankle wound (Acute) Subcutaneous air (Acute) Wound infection (Acute) Penicillins Allergy (Unknown, Verified 11/13/21 14:49) Hives Resuscitation Status Full Code Height 4 ft 11.84 in Weight 38.55 kg - Renal Dosing Renal Dosing: BUN 11 mg/dL (7-18) D 11/14/21 06:35 Creatinine 0.6 mg/dL (0.55-1.02) 11/14/21 06:35 Medications needing adjustments: Reviewed - Anticoagulation Anticoagulation: Hgb 9.3 g/dL (11.2-15.7) L D 11/14/21 06:35 Hct 31.4 % (36.0-46.0) L 11/14/21 06:35 Plt Count 381 10^3/uL (130-400) D 11/14/21 06:35 Creatinine 0.6 mg/dL (0.55-1.02) 11/14/21 06:35 DVT Prophylaxis: Reviewed Medications: Enoxaparin - Opiate Usage Evaluate Pain Scale/Pains Meds: Reviewed (chronic suboxone therapy restarted today) Scheduled Bowel Reg ordered if on Opiates?: No (prn orders) - Relevant Labs ESR 41 mm/hr (0-20) H 11/14/21 06:35 Sodium 141 mmol/L (136-145) 11/14/21 06:35 Potassium 3.5 mmol/L (3.5-5.1) 11/14/21 06:35 Chloride 111 mmol/L (98-107) H 11/14/21 06:35 Phosphorus 4.7 mg/dL (2.6-4.7) 11/14/21 06:35 Magnesium 1.6 mg/dL (1.8-2.4) L 11/14/21 06:35 C-Reactive Protein 11.11 mg/dL (0.0-0.3) H 11/14/21 06:35 Electrolytes, C-Reactive P, ESR: Reviewed (mag replaced with 2gm IV this AM) - DM Control DM Control: Glucose 84 mg/dL (74-106) 11/14/21 06:35 Hemoglobin A1c 5.1 % (<5.7) 11/13/21 10:10 Insulin Dosing: N/A - BP Control BP Control: Blood Pressure 98/60 Blood Pressure 97/61 If elevated: Reviewed List meds needing interventions: takes propranolol at home, it was started to provide cardioprotection while hyperthyroidism dx was being worked up - Qtc Review If Elevated: N/A - IV to PO Switch IV Medications: Reviewed - Home Meds Home Med List reviewed: Reviewed - Current meds Current Medication Order Review: Reviewed (Abx: flagyl + cipro + vanco; cultures pending)
--- NOTE | 2021-11-14 12:54 | PT.INTREAT ---
Date of service: 11/14/21 Time of Service: 12:54 PT Notes Visit Reasons: Dry,Gangrene RLE Physical Therapy Inpatient Treatment Note Date: 11/14/2021 Precautions: Fall. Standard. WBAT on B LE with AD. Subjective: Agreeable to PT consult.? Feels a lot better that she got her suboxone dose right before afternoon PT session. Wondered if she can continue to have PT services once she gets discharged. Objective: General Observation:? Cachexic.? IV in the R UE. Moffett catheter in place. Dry wound on the sole of the L foot overlying the 3-4th metatarsal heads.? Nurse Jeanna informed.? Wound dressing to R ankle and foot. Swelling seen in R toes and foot. Mental Status: Alert and oriented as to person, place, time, and purpose. Able to pay attention, focus, and respond appropriately. Pain: 3-4/10 with ambulation activity Bed Mobility/Transfers: Supine to sit independent Sit to stand with supervision Stand to sit with supervision Bed to reclining chair with supervision Gait: Instructed patient with level surface ambulation of 350 feet requiring standby assist assist.? Able to put weight on right toes more frequently with report of less pain pain 3-4/10.? Balance: Static Sitting: Normal Dynamic Sitting: Normal Static Standing: Unable Dynamic Standing: Unable Assessment: Will require PT services to increase weight bearing in R LE and assume normal heel-toe gait pattern with ambulation activity. Able to tolerate farther distance this afternoon with increased ability to put weight in the R foot. Nicol demonstrates functional mobility decline requiring the use fof FWW for all transfer and ambulation due to limited weight bearing on the R LE.? MRI of R foot was made in order to rule out osteomyelitis. DISCHARGE RECOMMENDATIONS: [] ? Home with no services [] [] ? Home with services [specify] [X] ? Home with outpatient PT. Patient will benefit from outpatient PT services in order to progress mobility level using least restrictive assistive ambulatory device while progressing mobility level to PLOF that will increase ability of patient to remain at home. [] ? SNF for continued rehabilitation [] [] ? [facility] [] [] ? SNF versus LTC based on ability to participate and progress [] TREATMENT CODE/TIME: 52330 x 35 minutes, 30102 x 15 minutes beginning at 12:54 PM.
[2021-11-14] MEDS: Buprenorphine/Naloxone 2 mg/0.5 mg FILM 1 EACH SL (13:18)
[2021-11-14] MEDS: Buprenorphine/Naloxone 8 mg/2 mg FILM 2 EACH SL (13:18)
--- NOTE | 2021-11-14 14:05 | PGE_ITS ---
Date of Service Date of service: 11/14/21 Time of Service: 07:00 Assessment and Plan Assessment and plan (1) Leukocytosis (leucocytosis): Status: Acute (2) Hypoalbuminemia due to protein-calorie malnutrition: Status: Acute (3) Dry gangrene: Status: Acute Assessment and plan: POD #1 s/p wound debridement and wash out of right medial and lateral ankle. Awaiting wound cultures. Dressing in place, did not remove per Dr. Richey's instructions. Hospitalist consult was ordered for assistance with low TSH, malnorishment and low potassium DIET- High protein. Please provide ensures between meals to increase calorie and protein intake. Nutrition consult was ordered Continue IV antibiotics PT ordered for gait training Pulmonary Toilet Pain well controlled, Toradol and Tylenol ordered at this time. Patient will return to the OR tomorrow for wound washout with possible debrideme nt with Dr. Richey. (4) Smoker unmotivated to quit: Status: Acute (5) Open ankle wound: Status: Acute (6) Wound infection: Status: Acute Subjective Subjective Interval history since last seen: Patient reports her pain is well controlled. She states she has a high pain tolerance. She is very emotional this morning, expressing concern for her potential outcomes with her LE's. She is eager to return home to her family. She denies any use of marijuana, illegal or recreational drug use. She denies any use of the ETOH. She states she has been cutting back her smoking cigarettes and is currently down to 1/2 pack/day. Exam Const General: cooperative, comfortable, anxious and frail appearing Nutritional Appearance: malnourished Orientation: alert and oriented x3 Resp Effort & Inspection: normal respiratory effort, no audible wheezes and no cough Extrem Other: Dressing in place following debridement. Toes are pink and warm to the touch, appropriate capillary refill. No signs or irritation or friction from the dressing. Objective Last Vital Signs Temp 36.3 C L 11/14/21 07:31 Pulse 100 H 11/14/21 07:31 Resp 18 11/14/21 07:31 BP 98/60 L 11/14/21 07:31 Pulse Ox 96 11/14/21 07:31 Laboratory Results - last 24 hr 11/13/21 11/13/21 11/13/21 10:10 13:07 13:47 WBC RBC Hgb Hct MCV MCH MCHC RDW Plt Count MPV Immature Gran % Neutrophils % Lymphocytes % Monocytes % Eosinophils % Basophils % Nucleated RBC % Absolute Neutrophils Absolute Lymphocytes Absolute Monocytes Absolute Eosinophils Absolute Basophils ESR Sodium Potassium Chloride Carbon Dioxide Anion Gap BUN Creatinine Estimated GFR/1.73 m2 Glucose Hemoglobin A1c 5.1 Calcium Phosphorus Magnesium Total Bilirubin GGT AST ALT Alkaline Phosphatase C-Reactive Protein Total Protein Albumin Vitamin B12 Folate Procalcitonin TSH Free T4 Urine Color Urine Clarity Urine pH Ur Specific [place] Urine Protein Urine Ketones Urine Blood Urine Nitrite Urine Bilirubin Urine Urobilinogen Ur Leukocyte Esterase Urine RBC Urine WBC Ur Epithelial Cells Urine Crystals Urine Bacteria Urine Casts Urine Mucus Ur Culture Indicated? Urine Glucose Vancomycin Trough Urine Opiates Screen Negative Urine Methadone Screen Negative Ur Barbiturates Screen Negative Ur Tricyclics Screen Negative Ur Amphetamines Screen Negative U Benzodiazepines Scrn Negative Urine Cocaine Screen Negative Ur THC Screen Negative COVID-19 Source Cancelled SARS-CoV-2 (PCR) Cancelled Add-On Test Request 11/13/21 11/13/21 11/13/21 14:00 14:25 14:30 WBC RBC Hgb Hct MCV MCH MCHC RDW Plt Count MPV Immature Gran % Neutrophils % Lymphocytes % Monocytes % Eosinophils % Basophils % Nucleated RBC % Absolute Neutrophils Absolute Lymphocytes Absolute Monocytes Absolute Eosinophils Absolute Basophils ESR Sodium Cancelled 139 Potassium Cancelled 3.5 Chloride Cancelled 107 Carbon Dioxide Cancelled 22.6 Anion Gap Cancelled 9.4 BUN Cancelled 18 D Creatinine Cancelled 0.5 L D Estimated GFR/1.73 m2 Cancelled >= 60.00 Glucose Cancelled 91 D Hemoglobin A1c Calcium Cancelled 8.1 L Phosphorus Magnesium Total Bilirubin GGT 34 AST ALT Alkaline Phosphatase C-Reactive Protein Total Protein Albumin Vitamin B12 Folate Procalcitonin TSH Free T4 Urine Color Urine Clarity Urine pH Ur Specific [place] Urine Protein Urine Ketones Urine Blood Urine Nitrite Urine Bilirubin Urine Urobilinogen Ur Leukocyte Esterase Urine RBC Urine WBC Ur Epithelial Cells Urine Crystals Urine Bacteria Urine Casts Urine Mucus Ur Culture Indicated? Urine Glucose Vancomycin Trough Urine Opiates Screen Urine Methadone Screen Ur Barbiturates Screen Ur Tricyclics Screen Ur Amphetamines Screen U Benzodiazepines Scrn Urine Cocaine Screen Ur THC Screen COVID-19 Source SARS-CoV-2 (PCR) Add-On Test Request 11/13/21 11/13/21 11/13/21 20:09 22:35 Unknown WBC RBC Hgb Hct MCV MCH MCHC RDW Plt Count MPV Immature Gran % Neutrophils % Lymphocytes % Monocytes % Eosinophils % Basophils % Nucleated RBC % Absolute Neutrophils Absolute Lymphocytes Absolute Monocytes Absolute Eosinophils Absolute Basophils ESR Sodium Potassium Chloride Carbon Dioxide Anion Gap BUN Creatinine Estimated GFR/1.73 m2 Glucose Hemoglobin A1c Calcium Phosphorus Magnesium Total Bilirubin GGT AST ALT Alkaline Phosphatase C-Reactive Protein Cancelled Total Protein Albumin Vitamin B12 Folate Procalcitonin TSH Free T4 Urine Color Yellow Urine Clarity Sl Cloudy Urine pH 7.0 Ur Specific [place] 1.015 Urine Protein Trace H Urine Ketones Negative Urine Blood Moderate H Urine Nitrite Negative Urine Bilirubin Negative Urine Urobilinogen 1.0 H Ur Leukocyte Esterase Negative Urine RBC 10-20 H Urine WBC 3-5 Ur Epithelial Cells Few Urine Crystals Negative Urine Bacteria Rare Urine Casts Negative Urine Mucus Negative Ur Culture Indicated? No Urine Glucose Negative Vancomycin Trough Urine Opiates Screen Urine Methadone Screen Ur Barbiturates Screen Ur Tricyclics Screen Ur Amphetamines Screen U Benzodiazepines Scrn Urine Cocaine Screen Ur THC Screen COVID-19 Source SARS-CoV-2 (PCR) Add-On Test Request DONE 11/14/21 11/14/21 11/14/21 06:35 06:35 06:35 WBC RBC Hgb Hct MCV MCH MCHC RDW Plt Count MPV Immature Gran % Neutrophils % Lymphocytes % Monocytes % Eosinophils % Basophils % Nucleated RBC % Absolute Neutrophils Absolute Lymphocytes Absolute Monocytes Absolute Eosinophils Absolute Basophils ESR 41 H Sodium 141 Potassium 3.5 Chloride 111 H Carbon Dioxide 20.5 L Anion Gap 9.5 BUN 11 D Creatinine 0.6 Estimated GFR/1.73 m2 >= 60.00 Glucose 84 Hemoglobin A1c Calcium 9.0 Phosphorus Magnesium 1.6 L Total Bilirubin 0.2 GGT AST 12 L ALT 15 Alkaline Phosphatase 91 C-Reactive Protein 11.11 H Total Protein 6.4 Albumin 1.8 L Vitamin B12 389 Folate > 20.0 H Procalcitonin TSH Free T4 Urine Color Urine Clarity Urine pH Ur Specific [place] Urine Protein Urine Ketones Urine Blood Urine Nitrite Urine Bilirubin Urine Urobilinogen Ur Leukocyte Esterase Urine RBC Urine WBC Ur Epithelial Cells Urine Crystals Urine Bacteria Urine Casts Urine Mucus Ur Culture Indicated? Urine Glucose Vancomycin Trough Urine Opiates Screen Urine Methadone Screen Ur Barbiturates Screen Ur Tricyclics Screen Ur Amphetamines Screen U Benzodiazepines Scrn Urine Cocaine Screen Ur THC Screen COVID-19 Source SARS-CoV-2 (PCR) Add-On Test Request 11/14/21 11/14/21 11/14/21 06:35 06:35 06:35 WBC 13.86 H D RBC 3.54 L Hgb 9.3 L D Hct 31.4 L MCV 88.7 D MCH 26.3 L MCHC 29.6 L RDW 16.6 H Plt Count 381 D MPV 9.6 Immature Gran % 0.4 Neutrophils % 78.5 Lymphocytes % 13.1 Monocytes % 5.6 Eosinophils % 2.2 Basophils % 0.2 Nucleated RBC % 0 Absolute Neutrophils 10.88 H Absolute Lymphocytes 1.82 Absolute Monocytes 0.78 Absolute Eosinophils 0.30 Absolute Basophils 0.03 ESR Sodium Potassium Chloride Carbon Dioxide Anion Gap BUN Creatinine Estimated GFR/1.73 m2 Glucose Hemoglobin A1c Calcium Phosphorus 4.7 Magnesium Total Bilirubin GGT AST ALT Alkaline Phosphatase C-Reactive Protein Total Protein Albumin Vitamin B12 Folate Procalcitonin TSH Free T4 Urine Color Urine Clarity Urine pH Ur Specific [place] Urine Protein Urine Ketones Urine Blood Urine Nitrite Urine Bilirubin Urine Urobilinogen Ur Leukocyte Esterase Urine RBC Urine WBC Ur Epithelial Cells Urine Crystals Urine Bacteria Urine Casts Urine Mucus Ur Culture Indicated? Urine Glucose Vancomycin Trough Urine Opiates Screen Urine Methadone Screen Ur Barbiturates Screen Ur Tricyclics Screen Ur Amphetamines Screen U Benzodiazepines Scrn Urine Cocaine Screen Ur THC Screen COVID-19 Source SARS-CoV-2 (PCR) Add-On Test Request DONE 11/14/21 11/14/21 11/14/21 06:35 06:35 10:43 WBC RBC Hgb Hct MCV MCH MCHC RDW Plt Count MPV Immature Gran % Neutrophils % Lymphocytes % Monocytes % Eosinophils % Basophils % Nucleated RBC % Absolute Neutrophils Absolute Lymphocytes Absolute Monocytes Absolute Eosinophils Absolute Basophils ESR Sodium Potassium Chloride Carbon Dioxide Anion Gap BUN Creatinine Estimated GFR/1.73 m2 Glucose Hemoglobin A1c Calcium Phosphorus Magnesium Total Bilirubin GGT AST ALT Alkaline Phosphatase C-Reactive Protein Total Protein Albumin Vitamin B12 Folate Procalcitonin 0.1 TSH < 0.01 L Free T4 2.75 H Urine Color Urine Clarity Urine pH Ur Specific [place] Urine Protein Urine Ketones Urine Blood Urine Nitrite Urine Bilirubin Urine Urobilinogen Ur Leukocyte Esterase Urine RBC Urine WBC Ur Epithelial Cells Urine Crystals Urine Bacteria Urine Casts Urine Mucus Ur Culture Indicated? Urine Glucose Vancomycin Trough 13.0 Urine Opiates Screen Urine Methadone Screen Ur Barbiturates Screen Ur Tricyclics Screen Ur Amphetamines Screen U Benzodiazepines Scrn Urine Cocaine Screen Ur THC Screen COVID-19 Source SARS-CoV-2 (PCR) Add-On Test Request
[2021-11-14] MEDS: Acetaminophen 325 MG TAB 650 MG PO (14:20)
[2021-11-14] MEDS: VANCOMYCIN 750 MG in Normal Saline 250 ML 125 ML IV ×2 (14:22→22:47)
[2021-11-14 15:30] VITALS: BP 96/56; PULSE 106; RESP 18; TEMP 36.8; O2SAT 98
--- NOTE | 2021-11-14 15:39 | CHAPLAIN ---
Nicol was looking at her phone when I visited and continued to. I introduced myself, explained my role and offered support. She continued to look at her phone, but thanked me for visiting.
--- NOTE | 2021-11-14 15:52 | W.PM.PROGNOT ---
Date of Service Date of service: 11/14/21 Time of Service: 15:52 Assessment and Plan Assessment and plan (1) Wound infection: Status: Acute Assessment and plan: DDx: primary wound infection; pyoderma gangrenosum, vasculitis/thrombotic complication of COVID-19. Await bx results. Continue vanco/cipro/flagyl. Await HIV and hepatitis studies. R/o IBD- await fecal calprotectin. Await MRI RLE to rule out osteomyelitis. Discussed with Dr Butcher. (2) Dry gangrene: Status: Acute Assessment and plan: As above (3) Hyperthyroidism: Status: Chronic Assessment and plan: The patient is not currently in thyroid storm but is at risk of one. Iodine from IV contrast may exacerbate her hyperthyroidism as well. We are obtaining thyroid antibodies and an ultrasound of her thyroid. Once I have these results, as long as the patient is not in a thyroid storm, I will be consulting endocrinology. This may explain her BMI. (4) Hypokalemia due to loss of potassium: Status: Resolved Assessment and plan: Repleted. Magnesium also repleted. (5) Hypoalbuminemia due to protein-calorie malnutrition: Status: Acute Assessment and plan: Trace protein on UA. Encourage nutrition - nutrition is consulted. (6) Narcotic abuse in remission: Assessment and plan: Continue suboxone. Check HIV/hepatitis studies. Subjective Subjective Interval history since last seen: Ms Akhtar states that her pain is ok. Denies dizziness, chest pain, shortness of breath, nausea. She feels better since being resumed on suboxone. We discussed that she does best when she knows what the plan is. I informed her that I had had a discussion with Dr Butcher about a possible MRI to determine if the bone is affected. I told her that the worst case scenario would be amputation but that we would do everything we can to avoid that. Nicol does not want to lose her legs. She was tearful for a large portion of our conversation. Exam Narrative Exam Narrative: General: Tearful anxious malnourished female, A&Ox3, not tremulous HEENT: EOMI, MMM Cardiovascular: RRR, mildly tachycardic, no m/r/g Lungs: CTAB Gastrointestinal: soft,nontender, nondistended Genitourinary: has a patel catheter Extremities: no edmea BLE's, distal RLE dressed in bulky dressing Objective Last Vital Signs Temp 36.8 C 11/14/21 15:30 Pulse 106 H 11/14/21 15:30 Resp 18 11/14/21 15:30 BP 96/56 L 11/14/21 15:30 Pulse Ox 98 11/14/21 15:30 Laboratory Results - last 24 hr 11/13/21 11/13/21 11/13/21 14:25 20:09 22:35 WBC RBC Hgb Hct MCV MCH MCHC RDW Plt Count MPV Immature Gran % Neutrophils % Lymphocytes % Monocytes % Eosinophils % Basophils % Nucleated RBC % Absolute Neutrophils Absolute Lymphocytes Absolute Monocytes Absolute Eosinophils Absolute Basophils ESR Sodium Potassium Chloride Carbon Dioxide Anion Gap BUN Creatinine Estimated GFR/1.73 m2 Glucose Calcium Phosphorus Magnesium Total Bilirubin GGT 34 AST ALT Alkaline Phosphatase C-Reactive Protein Cancelled Total Protein Albumin Vitamin B12 Folate Procalcitonin TSH Free T4 Urine Color Yellow Urine Clarity Sl Cloudy Urine pH 7.0 Ur Specific [place] 1.015 Urine Protein Trace H Urine Ketones Negative Urine Blood Moderate H Urine Nitrite Negative Urine Bilirubin Negative Urine Urobilinogen 1.0 H Ur Leukocyte Esterase Negative Urine RBC 10-20 H Urine WBC 3-5 Ur Epithelial Cells Few Urine Crystals Negative Urine Bacteria Rare Urine Casts Negative Urine Mucus Negative Ur Culture Indicated? No Urine Glucose Negative Vancomycin Trough Add-On Test Request 11/13/21 11/14/21 11/14/21 Unknown 06:35 06:35 WBC RBC Hgb Hct MCV MCH MCHC RDW Plt Count MPV Immature Gran % Neutrophils % Lymphocytes % Monocytes % Eosinophils % Basophils % Nucleated RBC % Absolute Neutrophils Absolute Lymphocytes Absolute Monocytes Absolute Eosinophils Absolute Basophils ESR 41 H Sodium Potassium Chloride Carbon Dioxide Anion Gap BUN Creatinine Estimated GFR/1.73 m2 Glucose Calcium Phosphorus Magnesium 1.6 L Total Bilirubin GGT AST ALT Alkaline Phosphatase C-Reactive Protein 11.11 H Total Protein Albumin Vitamin B12 389 Folate > 20.0 H Procalcitonin TSH Free T4 Urine Color Urine Clarity Urine pH Ur Specific [place] Urine Protein Urine Ketones Urine Blood Urine Nitrite Urine Bilirubin Urine Urobilinogen Ur Leukocyte Esterase Urine RBC Urine WBC Ur Epithelial Cells Urine Crystals Urine Bacteria Urine Casts Urine Mucus Ur Culture Indicated? Urine Glucose Vancomycin Trough Add-On Test Request DONE 11/14/21 11/14/21 11/14/21 06:35 06:35 06:35 WBC 13.86 H D RBC 3.54 L Hgb 9.3 L D Hct 31.4 L MCV 88.7 D MCH 26.3 L MCHC 29.6 L RDW 16.6 H Plt Count 381 D MPV 9.6 Immature Gran % 0.4 Neutrophils % 78.5 Lymphocytes % 13.1 Monocytes % 5.6 Eosinophils % 2.2 Basophils % 0.2 Nucleated RBC % 0 Absolute Neutrophils 10.88 H Absolute Lymphocytes 1.82 Absolute Monocytes 0.78 Absolute Eosinophils 0.30 Absolute Basophils 0.03 ESR Sodium 141 Potassium 3.5 Chloride 111 H Carbon Dioxide 20.5 L Anion Gap 9.5 BUN 11 D Creatinine 0.6 Estimated GFR/1.73 m2 >= 60.00 Glucose 84 Calcium 9.0 Phosphorus 4.7 Magnesium Total Bilirubin 0.2 GGT AST 12 L ALT 15 Alkaline Phosphatase 91 C-Reactive Protein Total Protein 6.4 Albumin 1.8 L Vitamin B12 Folate Procalcitonin TSH Free T4 Urine Color Urine Clarity Urine pH Ur Specific [place] Urine Protein Urine Ketones Urine Blood Urine Nitrite Urine Bilirubin Urine Urobilinogen Ur Leukocyte Esterase Urine RBC Urine WBC Ur Epithelial Cells Urine Crystals Urine Bacteria Urine Casts Urine Mucus Ur Culture Indicated? Urine Glucose Vancomycin Trough Add-On Test Request 11/14/21 11/14/21 11/14/21 06:35 06:35 06:35 WBC RBC Hgb Hct MCV MCH MCHC RDW Plt Count MPV Immature Gran % Neutrophils % Lymphocytes % Monocytes % Eosinophils % Basophils % Nucleated RBC % Absolute Neutrophils Absolute Lymphocytes Absolute Monocytes Absolute Eosinophils Absolute Basophils ESR Sodium Potassium Chloride Carbon Dioxide Anion Gap BUN Creatinine Estimated GFR/1.73 m2 Glucose Calcium Phosphorus Magnesium Total Bilirubin GGT AST ALT Alkaline Phosphatase C-Reactive Protein Total Protein Albumin Vitamin B12 Folate Procalcitonin 0.1 TSH < 0.01 L Free T4 2.75 H Urine Color Urine Clarity Urine pH Ur Specific [place] Urine Protein Urine Ketones Urine Blood Urine Nitrite Urine Bilirubin Urine Urobilinogen Ur Leukocyte Esterase Urine RBC Urine WBC Ur Epithelial Cells Urine Crystals Urine Bacteria Urine Casts Urine Mucus Ur Culture Indicated? Urine Glucose Vancomycin Trough Add-On Test Request DONE 11/14/21 10:43 WBC RBC Hgb Hct MCV MCH MCHC RDW Plt Count MPV Immature Gran % Neutrophils % Lymphocytes % Monocytes % Eosinophils % Basophils % Nucleated RBC % Absolute Neutrophils Absolute Lymphocytes Absolute Monocytes Absolute Eosinophils Absolute Basophils ESR Sodium Potassium Chloride Carbon Dioxide Anion Gap BUN Creatinine Estimated GFR/1.73 m2 Glucose Calcium Phosphorus Magnesium Total Bilirubin GGT AST ALT Alkaline Phosphatase C-Reactive Protein Total Protein Albumin Vitamin B12 Folate Procalcitonin TSH Free T4 Urine Color Urine Clarity Urine pH Ur Specific [place] Urine Protein Urine Ketones Urine Blood Urine Nitrite Urine Bilirubin Urine Urobilinogen Ur Leukocyte Esterase Urine RBC Urine WBC Ur Epithelial Cells Urine Crystals Urine Bacteria Urine Casts Urine Mucus Ur Culture Indicated? Urine Glucose Vancomycin Trough 13.0 Add-On Test Request
[2021-11-14 18:13] LABS: T3, Total 166 ng/dL (97-169)
[2021-11-14 19:49] LABS: Thyroglobulin Antibody <15 U/mL (<=60); Thyroperoxidase Antibody <28 U/mL (<=60)
[2021-11-14 23:58] VITALS: BP 107/71; PULSE 109; RESP 18; TEMP 37.1; O2SAT 94
[2021-11-15] VITALS (7 sets, daily range): BP systolic 97–126; BP diastolic 58–86; PULSE 91–121; RESP 16–25; TEMP 36.9–37.6; O2SAT 93–98; BMI 16.7
--- NOTE | 2021-11-15 | DI.MRI_ITS ---
Exam(s) MR LOWER EXTREMITY RT WO/W EXAM: MR LOWER EXTREMITY RT WO/W CLINICAL HISTORY: r/o osteomylitis TECHNIQUE: Multiplanar multisequence MRI was performed with and without intravenous contrast. COMPARISON: CR XR ANKLE RT COMPLETE from 11/13/2021 FINDINGS: The examination is limited due to patient motion artifact. BONES/JOINTS: There is mild edema seen in the distal tibial at the level of the metaphysis and the di stal fibula. The cortex appears grossly unremarkable. No enhancement is seen following contrast adm inistration. No bone lesions identified. The talar dome is smooth. The ankle mortise is maintained. No joint effusion is present. LIGAMENTS: The tibiofibular and calcaneofibular ligaments are intact. The talofibular ligaments are i ntact. The deltoid ligament is intact. The syndesmosis is unremarkable. Sinus tarsi is normal. MUSCULOTENDINOUS STRUCTURES: Achilles tendon: Unremarkable. Plantar fascia: Unremarkable. Anterior Extensor tendons: Unremarkable. Posterior Tibialis: Unremarkable. Flexor Digitorum longus: Unremarkable. Flexor Hallucis longus: Unremarkable. Peroneus longus: Unremarkable. Peroneus brevis:Unremarkable. SOFT TISSUES: There is edema seen in the soft tissues around the lower leg and ankle. No focal fluid collection is seen to suggest an abscess. Following contrast administration no enhancing fluid son ection or soft tissue mass is seen. OTHER FINDINGS: None. IMPRESSION: 1. Cellulitis in the lower leg. No focal fluid collection is seen to suggest an abscess. 2. Very mild marrow edema seen in the distal tibia and fibula. No enhancement is seen. This may be reactive. 3. Results of this exam have been verbally communicated with provider. DATA REPOSITORY:
--- NOTE | 2021-11-15 | DI.US_ITS ---
Exam(s) US THYROID EXAM: US THYROID CLINICAL HISTORY: hyperthyroidism. TECHNIQUE: Ultrasound thyroid performed using standard protocol. COMPARISON: No exams were available for comparison FINDINGS: ISTHMUS: 5 mm RIGHT LOBE: Size: 4.9 cc by 2.3 AP by 3 transverse cm Echogenicity: Normal. Vascularity: Normal. Nodules: There is a 1.9 AP by 2.4 transverse by 3.6 cc cm mass in the mid right lobe. It shows mixed cystic and solid components and is isoechoic to the thyroid gland. No echogenic foci are seen. The nodule is mildly lobulated. It is consistent with a TIRADS level 4 nodule. LEFT LOBE: Size: 4.4 cc by 1.3 AP by 1.1 transverse cm Echogenicity: Normal. Vascularity: Normal. Nodules: There are no nodules greater than 5 mm. OTHER FINDINGS: None. IMPRESSION: TIRADS level 4 right thyroid nodule. DATA REPOSITORY:
[2021-11-15] MEDS: Ketorolac 15 MG/ML VIAL IVP ×3 (00:29→17:02)
[2021-11-15] MEDS: CIPROFLOXACIN 400 MG/200 ML BAG 200 MG IVPB (00:30)
[2021-11-15] MEDS: Normal Saline Flush 10 ML SYR IVP ×4 (00:30→17:02)
[2021-11-15] MEDS: metroNIDAZOLE 500 MG/100 ML BAG 100 MG IVPB ×2 (04:17→10:41)
[2021-11-15 05:01] LABS: Vitamin D 25 Total 13.8 ng/mL (30-100)
[2021-11-15] MEDS: Famotidine 20 MG/2 ML VIAL IVP ×2 (05:59→18:43)
[2021-11-15 07:04] LABS: Abs Immature Grans 0.04 10^3/uL (0.0-0.06); Absolute Eosinophil Count 0.15 10^3/uL (0.0-0.7); Absolute Lymphocyte Count 1.42 10^3/uL (1.2-3.4); Absolute Monocyte Count 0.54 10^3/uL (0.1-0.8); Absolute Neutrophil Count 9.56 10^3/uL (1.2-6.7); Basophils % 0.3; Eosinophils % 1.3; HCT 31.9 % (36.0-46.0); HGB 9.5 g/dL (11.2-15.7); Immature Grans % 0.3; Lymphocytes % 12.1; MCHC 29.8 % (32.0-36.0); MCV 87.2 fL (80-95); MPV 9.3 fL (8.0-11.0); Monocytes % 4.6; Neutrophils % 81.4; Nucleated RBC 0 %; Platelet Count 399 10^3/uL (130-400); RBC 3.66 10^6/uL (3.93-5.22); RDW 16.7 % (11.7-14.6); RDW-SD 53.1 fL; WBC 11.74 10^3/uL (4.4-10.8)
[2021-11-15 07:15] LABS: Absolute Basophil Count 0.04 10^3/uL (0.0-0.2)
[2021-11-15 07:18] LABS: Anion Gap 6.6 mmol/L (3-11); BUN 11 mg/dL (7-18); C-Reactive Protein 11.77 mg/dL (0.0-0.3); CO2 24.4 mmol/L (21.0-32.0); CREATININE 0.4 mg/dL (0.55-1.02); Calcium 8.5 mg/dL (8.5-10.1); Chloride 110 mmol/L (98-107); Glucose 98 mg/dL (74-106); Magnesium 1.6 mg/dL (1.8-2.4); Potassium 3.4 mmol/L (3.5-5.1); Sodium 141 mmol/L (136-145)
[2021-11-15] MEDS: VANCOMYCIN 750 MG in Normal Saline 250 ML 125 ML IV (08:13)
[2021-11-15] MEDS: Buprenorphine/Naloxone 8 mg/2 mg FILM 2 EACH SL (08:14)
[2021-11-15] MEDS: Buprenorphine/Naloxone 2 mg/0.5 mg FILM 1 EACH SL (08:14)
--- NOTE | 2021-11-15 09:59 | CMPROGNOTE_ITS ---
- If Service Date Differs Date of service: 11/15/21 Time of Service: 09:59 Care Management Progress Note S/O: Nicol was sitting up in bed with the HOB elevated when CM met with her. She was alert and oriented X 3 and getting ready to go down to x-ray for a MRI. She initially chose to forgo the MRI because she was reluctant to remove her lip ring, but with some encouragement, she allowed staff to help her take it out. She is planning on going to the OR for a repeat debridement and washout later today. Nicol is anxious to return home and shares that she really misses her family. Nicol understands that continued IV ABX and surgical intervention is needed and shares that she is willing to stay as long as medically necessary. A: 36 year old female admitted to [facility] on 11/13/21 for Dry, Gangrene RLE. P: Nicol is being followed by surgery. She requires IV abx and surgical intervention for gangrenous wound(s) on her right ankle, cultures are pending. Anticipate Nicol will be discharged home with new [facility] RN/PT via private vehicle with family when medically ready. She will follow up with community providers and discharge plan of care as prescribed.
--- NOTE | 2021-11-15 10:07 | W.PM.PROGNOT ---
Documented by User: JUAN ANTONIO Rae 11/15/21 10:15 Date of Service Date of service: 11/15/21 Time of Service: 07:01 Assessment and Plan Assessment and plan (1) Leukocytosis (leucocytosis): Status: Acute (2) Hypoalbuminemia due to protein-calorie malnutrition: Status: Acute (3) Dry gangrene: Status: Acute Assessment and plan: POD #2 s/p wound debridement and wash out of right medial and lateral ankle. Awaiting wound cultures. Dressing in place, did not remove per Dr. Richey's instructions. DIET- High protein. Please provide ensures between meals to increase calorie and protein intake. Continue IV antibiotics PT ordered for gait training Pulmonary Toilet Pain well controlled, Toradol and Tylenol ordered at this time. OR today for debridement and wash out with Dr. Richey (4) Smoker unmotivated to quit: Status: Acute (5) Open ankle wound: Status: Acute (6) Wound infection: Status: Acute Subjective Subjective Interval history since last seen: Arrived with patient sitting in bed, using her cell phone. Patient started crying and became very emotional as soon as this provider started speaking with her. Patient expresses her eagerness to return home with her concern for her children. Patient states that she is very tired, and has been through so much the past few days. Patient denies any pain in her right lower extremity. She also denies any fevers, chills or night sweats. Exam Const General: cooperative, healthy appearing and comfortable Orientation: alert and oriented x3 Resp Effort & Inspection: normal respiratory effort, no audible wheezes and no cough Extrem Other: (+) Doraslis Pedis, foot is warm. No pain. Objective Last Vital Signs Temp 37.5 C 11/15/21 07:49 Pulse 109 H 11/15/21 07:49 Resp 20 11/15/21 07:49 BP 126/86 11/15/21 07:49 Pulse Ox 93 11/15/21 07:49 Laboratory Results - last 24 hr 11/14/21 11/14/21 11/14/21 06:35 06:35 10:43 WBC RBC Hgb Hct MCV MCH MCHC RDW Plt Count MPV Immature Gran % Neutrophils % Lymphocytes % Monocytes % Eosinophils % Basophils % Nucleated RBC % Absolute Neutrophils Absolute Lymphocytes Absolute Monocytes Absolute Eosinophils Absolute Basophils Sodium Potassium Chloride Carbon Dioxide Anion Gap BUN Creatinine Estimated GFR/1.73 m2 Glucose Calcium Magnesium C-Reactive Protein 25-OH Vitamin D Total 13.8 L Total T3 166 Vancomycin Trough 13.0 Thyroperoxidase Ab <28 Thyroglobulin Antibody <15 11/15/21 11/15/21 06:42 06:42 WBC 11.74 H RBC 3.66 L Hgb 9.5 L Hct 31.9 L MCV 87.2 MCH 26.0 L MCHC 29.8 L RDW 16.7 H Plt Count 399 MPV 9.3 Immature Gran % 0.3 Neutrophils % 81.4 Lymphocytes % 12.1 Monocytes % 4.6 Eosinophils % 1.3 Basophils % 0.3 Nucleated RBC % 0 Absolute Neutrophils 9.56 H Absolute Lymphocytes 1.42 Absolute Monocytes 0.54 Absolute Eosinophils 0.15 Absolute Basophils 0.04 Sodium 141 Potassium 3.4 L Chloride 110 H Carbon Dioxide 24.4 Anion Gap 6.6 BUN 11 Creatinine 0.4 L Estimated GFR/1.73 m2 >= 60.00 Glucose 98 Calcium 8.5 Magnesium 1.6 L C-Reactive Protein 11.77 H 25-OH Vitamin D Total Total T3 Vancomycin Trough Thyroperoxidase Ab Thyroglobulin Antibody Documented by User: Susana Richey, 11/15/21 19:14 Assessment and Plan Assessment and plan (1) Leukocytosis (leucocytosis): Status: Acute Assessment and plan: Patient seen and examined. Agree with above. Please see operative report. I did review her MR with Dr. Burciaga. There is no signs of osteo-. I did discuss with Dr. Kelley. We cannot do a nuc med study because she had iodinated contrast recently. Dr. Kelley did discuss her case with endocrine and is going to start her on suppression with methimazole. She grew out E. coli and strep B on her cultures. Blood was negative so far. We change her antibiotics to azotreanam as she has a penicillin allergy ocnt PT pain control DVT proph pulm toilet will re-eval protein status and TSH for poss grafting soltion next week. 90 minutes spent in care of this patient today (2) Hypoalbuminemia due to protein-calorie malnutrition: Status: Acute (3) Dry gangrene: Status: Acute (4) Smoker unmotivated to quit: Status: Acute (5) Open ankle wound: Status: Acute (6) Wound infection: Status: Acute
[2021-11-15] MEDS: Potassium Chloride 20 MEQ TABCR 40 MEQ PO ×2 (10:13→10:41)
[2021-11-15] MEDS: MAGNESIUM SULFATE 2 GM/50 ML BAG IVPB (10:14)
[2021-11-15] MEDS: Enoxaparin 40 MG/0.4 ML SYR SC (10:20)
[2021-11-15 10:22] LABS: HIV-1/2 Ag & Ab Screen Negative (Negative)
[2021-11-15 10:23] LABS: HBs Antibody, Qual Positive (See Note); HBs Antibody, Quant 22.8 mIU/mL (See Note); Hepatitis B Core Antibody Negative (Negative); Hepatitis B surface Ag Negative (Negative); Hepatitis C Ab w Rflx HCV PCR Negative (Negative)
--- NOTE | 2021-11-15 11:40 | W.ANESPRE ---
General Info Date of Service Date Performed: 11/15/21 Height: 4 ft 11.84 in Weight: 38.55 kg Body Mass Index (BMI): 16.7 Surgical Procedure: Operation Date: 11/13/21 17:10 Proposed Procedure Side Surgeon p Debridement Foot/Leg Susana Richey, Actual Procedure Side Surgeon p Irrigation & Debridement of Ankle/Foot Wound Right Susana Richey DO Pre-Op Diagnosis Post-Op Diagnosis WOUND OF RIGHT ANKLE/FOOT WOUND OF RIGHT ANKLE/FOOT Operation Date: 11/15/21 12:10 Proposed Procedure Side Surgeon p Washout, possible Debridement, Dressing Change Susana Richey DO Meds Allergies and Home Medications Allergies Allergy/AdvReac Type Severity Reaction Status Date / Time Penicillins Allergy Unknown Hives Verified 11/13/21 14:49 Home Medication Medication Instructions Recorded levonorgestrel 20 mcg/24 hours (7 1 unit IU DAILY 08/22/15 yrs) 52 mg intrauterine device (Mirena) ferrous gluconate 324 mg (38 mg 324 mg PO DAILY 11/13/21 iron) tablet propranolol 20 mg tablet 20 mg PO BID 11/13/21 buprenorphine 2 mg-naloxone 0.5 mg 1 film SUBLINGUAL DAILY 11/14/21 sublingual film (Suboxone) buprenorphine 8 mg-naloxone 2 mg 2 film SUBLINGUAL DAILY 11/14/21 sublingual film (Suboxone) Current Visit Medications: Current Medications Generic Name Dose Route Start Last Admin Trade Name Freq PRN Reason Stop Dose Admin Acetaminophen 650 mg 11/14/21 14:02 11/14/21 14:20 Acetaminophen 325 Mg Tab PO 650 mg Q6H PRN PRN Administration Albuterol Sulfate 2.5 mg 11/13/21 15:30 Albuterol 2.5 Mg/3 Ml Inh Soln Vial UPD Q4H PRN PRN Ascorbic Acid 500 mg 11/13/21 20:00 11/14/21 22:47 Ascorbic Acid 500 Mg Tab PO 500 mg BID HANSA Administration Buprenorphine/Naloxone 2 each 11/15/21 08:30 11/15/21 08:14 Buprenorphine/Naloxone 8 Mg/2 Mg Film SL 2 each DAILY HANSA Administration Buprenorphine/Naloxone 1 each 11/15/21 08:30 11/15/21 08:14 Buprenorphine/Naloxone 2 Mg/0.5 Mg Film SL 1 each DAILY HANSA Administration Cyanocobalamin 1,000 mcg 11/15/21 08:30 Cyanocobalamin 500 Mcg Tab PO DAILY HANSA Enoxaparin Sodium 40 mg 11/14/21 10:00 11/15/21 10:20 Enoxaparin 40 Mg/0.4 Ml Syr SC 40 mg Q24H HANSA Administration Famotidine 20 mg 11/13/21 18:00 11/15/21 05:59 Famotidine 20 Mg/2 Ml Vial IVP 20 mg Q12H HANSA Administration Hydroxyzine Pamoate 25 mg 11/13/21 18:21 Hydroxyzine Pamoate 25 Mg Cap PO TID PRN PRN Sodium Chloride 500 mls @ 0 mls/hr 11/13/21 15:30 Saline 500ml Bag IV PRN PRN As Directed Ciprofloxacin 400 mg in 200 mls @ 200 mls/hr 11/14/21 00:00 11/15/21 08:00 Cipro I.V. IVPB Infused Q12H [facility] Infusion Protocol IV Miscellaneous Supplies 1 each 11/13/21 15:30 Iv Access IV DIRECTED [facility] Ketorolac Tromethamine 15 mg 11/13/21 18:00 11/15/21 05:59 Ketorolac 15 Mg/Ml Vial IVP 11/18/21 17:59 15 mg Q6H [facility] Administration Lactobacillus Acidophilus/Casei 1 cap 11/14/21 08:30 11/14/21 08:08 L. Acidophilus, Casei, Rhamnosus Cap PO 1 cap DAILY [facility] Administration Metaxalone 800 mg 11/13/21 16:46 11/15/21 06:13 Metaxalone 800 Mg Tab PO 800 mg QID PRN PRN Administration Multi-Ingredient Supplement 1 ounce 11/13/21 20:00 11/14/21 22:49 Protein Nutritional Supplement 16 Gm 1 Ounce Packet PO Not Given TID HANSA Nicotine 1 cartridge 11/13/21 18:21 11/14/21 08:34 Nicotine 10 Mg/Cartridge 30 Cart/Pkg IH 1 cartridge Q2H PRN PRN Administration Ondansetron HCl 4 mg 11/13/21 16:43 Ondansetron 4 Mg/2 Ml Vial IVP Q4H PRN PRN Polyethylene Glycol 17 gm 11/13/21 17:07 Polyethylene Glycol 3350 17 Gm Packet PO DAILY PRN PRN Sodium Chloride 0 ml 11/13/21 15:30 11/15/21 00:30 Normal Saline Flush 10 Ml Syr IVP 30 ml PRN PRN Administration Zinc Sulfate 220 mg 11/14/21 08:30 11/14/21 08:08 Zinc Sulfate 220 Mg Tab PO 220 mg DAILY HANSA Administration PFSH Active Problems Active Problems: Problem Status Onset Code Hyperthyroidism E05.90 Leukocytosis (leucocytosis) D72.829 Asthma J45.909 Hypokalemia due to loss of potassium E87.6 Hypoalbuminemia due to protein-calorie malnutrition E88.09, E46 Dry gangrene I96 Smoker unmotivated to quit F17.200 Open ankle wound S91.009A Subcutaneous air T79.7XXA Wound infection T14.8XXA, L08.9 CAP (community acquired pneumonia) J18.9 Pain, dental K08.8 Medical History Medical History (Updated 11/14/21 @ 15:58 by Gabriella Kelley MD) Narcotic abuse in remission Tachycardia Surgical History Surgical History (Updated 11/13/21 @ 10:15 by Jazzy Celaya DO) History of adenoidectomy S/p bilateral myringotomy with tube placement Tobacco Smoking/Tobacco Use Status: Current every day Tobacco Type: cigarettes Smoking cigarettes per day: 10 Alcohol Alcohol Intake: never Substance Use Substance use: Current Sobriety Substance use type: former substance user Vital Signs and Lab Results Vital Signs Most Recent Vital Signs in EMR: Most Recent Vital Signs Temp Pulse Resp BP Pulse Ox 37.5 C 109 H 20 126/86 93 11/15/21 07:49 11/15/21 07:49 11/15/21 07:49 11/15/21 07:49 11/15/21 07:49 Point of Care Results Point of Care Results: POC- Test(urine) Negative 11/13/21 11:13 Lab Results Result Diagrams: 11/15/21 06:42 11/15/21 06:42 Blood Type / Crossmatch: No Data to Display Complete Blood Count: White Blood Count 11.74 10^3/uL (4.4-10.8) H 11/15/21 06:42 11/15/21 Red Blood Count 3.66 10^6/uL (3.93-5.22) L 11/15/21 06:42 11/15/21 Hemoglobin 9.5 g/dL (11.2-15.7) L 11/15/21 06:42 11/15/21 Hematocrit 31.9 % (36.0-46.0) L 11/15/21 06:42 11/15/21 Platelet Count 399 10^3/uL (130-400) 11/15/21 06:42 11/15/21 Venous Blood Lactate 1.6 mmol/L (0.6-1.4) H 11/13/21 10:10 11/13/21 Complete Metabolic Panel: Sodium Level 141 mmol/L (136-145) 11/15/21 06:42 11/15/21 Potassium Level 3.4 mmol/L (3.5-5.1) L 11/15/21 06:42 11/15/21 Chloride Level 110 mmol/L (98-107) H 11/15/21 06:42 11/15/21 Carbon Dioxide Level 24.4 mmol/L (21.0-32.0) 11/15/21 06:42 11/15/21 Blood Urea Nitrogen 11 mg/dL (7-18) 11/15/21 06:42 11/15/21 Creatinine 0.4 mg/dL (0.55-1.02) L 11/15/21 06:42 11/15/21 Estimated GFR/1.73 m2 >= 60.00 (mL/min/1.73m2) 11/15/21 06:42 11/15/21 Magnesium Level 1.6 mg/dL (1.8-2.4) L 11/15/21 06:42 11/15/21 Calcium Level 8.5 mg/dL (8.5-10.1) 11/15/21 06:42 11/15/21 Albumin 1.8 g/dL (3.4-5.0) L 11/14/21 06:35 11/14/21 Glucose Level 98 mg/dL (74-106) 11/15/21 06:42 11/15/21 Hemoglobin A1c 5.1 % (<5.7) 11/13/21 10:10 11/13/21 C-Reactive Protein 11.77 mg/dL (0.0-0.3) H 11/15/21 06:42 11/15/21 Liver Function Panel: Alanine Aminotransferase (ALT/SGPT) 15 U/L (14-59) 11/14/21 06:35 11/14/21 Aspartate Amino Transf (AST/SGOT) 12 U/L (15-37) L 11/14/21 06:35 11/14/21 Gamma Glutamyl Transpeptidase 34 U/L (5-55) 11/13/21 14:25 11/13/21 Coagulation Panel: No Data to Display Cardiac Panel: No Data to Display Arterial Blood Gas: No Data to Display Venous Blood Gas: No Data to Display Pancreas Panel: No Data to Display Thyroid Panel: Thyroid Stimulating Hormone (TSH) < 0.01 uIU/mL (0.36-3.74) L 11/14/21 06:35 11/14/21 Total Triiodothyronine 166 ng/dL (97-169) 11/14/21 06:35 11/14/21 Infectious Disease: Coronavirus (COVID-19)(PCR) Negative (Negative) 11/13/21 13:12 11/13/21 Coronavirus 2019 Source NASAL 11/13/21 13:12 11/13/21 HIV (1&2) Ag and Ab, 4th Generation Negative (Negative) 11/14/21 06:35 11/14/21 Hepatitis B Surface Antigen Negative (Negative) 11/14/21 06:35 11/14/21 Hepatitis C Antibody Negative (Negative) 11/14/21 06:35 11/14/21 Blood Cultures: No Data to Display Toxicology Panel: Urine Amphetamines Screen Negative (Negative) 11/13/21 13:47 11/13/21 Urine Benzodiazepines Screen Negative (Negative) 11/13/21 13:47 11/13/21 Urine Barbiturates Screen Negative (Negative) 11/13/21 13:47 11/13/21 Urine Cocaine Screen Negative (Negative) 11/13/21 13:47 11/13/21 Urine Methadone Screen Negative (Negative) 11/13/21 13:47 11/13/21 Urine Opiates Screen Negative (Negative) 11/13/21 13:47 11/13/21 Ur Tricyclic Antidepressants Screen Negative (Negative) 11/13/21 13:47 11/13/21 Ur Tetrahydrocannabinol (THC) Scrn Negative (Negative) 11/13/21 13:47 11/13/21 Panel: No Data to Display Anesthesia Assessment and Plan Anesthesia History Personal History: No History of Anesthesia Complications and Other (states took a very long time 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) Family History: No Family History of Anesthesia Complications Exercise Tolerance Exercise Tolerance: Metabolic Equivalents>4 Pertinent Negatives Pertinent Negatives: No Symptoms of GERD and No Major Cardiovascular Symptoms or Complaints Cardiac & Pulmonary Exam Cardiac Exam: Normal S1/S2 Heart Sounds Pulmonary Exam: Rhonchi Present Implantable Cardiac Device Does patient have a Pacemaker or an ICD?: No Airway Exam Known Difficult Airway: No Mallampati Class: 2 Mouth Opening: Normal (> 3cm) Thyromental Distance: Greater than 3 cm Neck Range of Motion: Full ROM Neck Circumference: Normal Teeth Condition: Generalized Poor Dentition and Loose or Chipped Airway Comments: most teeth are chipped, many missing, denies loose. ASA Classification ASA Score: ASA 2 Emergency Case?: No NPO Status NPO Status: Full Stomach (Patient reports she ate (1) sandra cracker at 10am, unknown to the nursing staff. Dr. Richey aware, plan to proceed with SAB, no sedation.) Status Status: Negative HCG Anesthesia Plan Resuscitation Status: Full Code Anesthesia Technique: Spinal Anesthesia Airway Planned: Natural Airway Monitors Used: Standard Monitors
[2021-11-15] MEDS: hydrOXYzine PAMOATE 25 MG CAP PO (12:20)
[2021-11-15] MEDS: Gadoterate meglumine 20 ML VIAL IVP (12:26)
[2021-11-15] MEDS: Lactated Ringers 1,000 ML 75 ML IV (14:30)
[2021-11-15 14:49] LABS: ANA Interpretation Positive (Negative); ANA Titer Pattern 1:80 Speckled
--- NOTE | 2021-11-15 15:03 | W.PM.OP ---
Date of service: 11/15/21 Time of Service: 15:03 Operative Note Operative Note DATE OF PROCEDURE: 11/13/21 PRE-OP DIAGNOSIS: stage III pressure ulcer same PROCEDURE: 2 nd look for viability R: medial 13x8 lateral 10x11 I&D Refer to Anesthesia Record ESTIMATED BLOOD LOSS: 5 PATHOLOGY: other Patient was transported to: PACU Implants: I&D Procedure Description: Patient is here today for second look from her a stage III pressure ulcers. Informed consent is obtained Splane risks and benefits of procedure explained not limited to: Bleeding, infection, pneumonia, blood clots, complications of anesthesia, damage to tendons muscles and nerves resulting in chronic pain chronic numbness and loss of motor and sensory sensation loss of function. Patient is brought to the operative room suite anesthesia is administered per the department of anesthesia patient is placed in the supine position with all bony surfaces padded all dressings are removed patient is prepped and draped in usual sterile fashion using Betadine scrub solution. Timeout is performed. There is about 3 mm of skin all the way around both wounds that is nonviable. This is trimmed back today with scissors. There is also some fatty tissue that is nonviable and is sharply debrided with a curette. Electrocautery is used to provide hemostasis. The wounds are then irrigated with a liter and a half of sterile saline. The muscle and tendon appears viable. There is no abscess pockets. Cultures did grow out strep and E. coli. Antibiotics were adjusted. The wounds appear dry Silvadene and Xeroform are applied as well as a bulky sterile dressing. Patient is still quite hyperthyroid and has significant nutritional deficits. This will need to be addressed prior to any allografting. Patient is not a candidate for a flap that she smokes a pack a day. Her BMI is 16. She does have not have any significant area for a donor. Possibly her buttocks. Patient tolerated the procedure today well and transferred to recovery room in stable condition.
--- NOTE | 2021-11-15 15:31 | W.ANESPOSTOP ---
Postoperative Evaluation Date, Time and Location Date Performed: 11/15/21 Time Performed: 14:45 Patient Location: PACU Vital Signs Most Recent Imported Vital Signs: Most Recent Vital Signs Temp Pulse Resp BP Pulse Ox 37.6 C H 121 H 19 97/58 L 98 11/15/21 15:23 11/15/21 15:23 11/15/21 15:23 11/15/21 15:23 11/15/21 15:23 Most Recent Vital Signs Temp Pulse Resp BP Pulse Ox 36.2 C L 94 H 24 93/42 L 98 11/13/21 16:49 11/13/21 16:49 11/13/21 16:49 11/13/21 16:49 11/13/21 16:49 Pain Score Most Recent Pain Score: Most Recent Pain Score Pain Level 0 11/15/21 15:23 Assessment Mental Status: Awake (Alert & Oriented to Patient Baseline) Airway and Respiratory Function: Patent airway with normal (patient baseline) respiratory exam Cardiovascular Function: Hemodynamically Stable Hydration Status: Adequately Hydrated Nausea & Vomiting: No Nausea or Vomiting Pain: Pt. Denies Any Pain Peripheral Nerve Block: Regional nerve block not resolved at time of post operative discharge
--- NOTE | 2021-11-15 15:35 | PGE_ITS ---
Date of Service Date of service: 11/15/21 Time of Service: 15:35 Assessment and Plan Assessment and plan (1) Wound infection: Status: Acute Assessment and plan: DDx: primary wound infection; pyoderma gangrenosum, vasculitis/thrombotic complication of COVID-19. Wound cx with E. Coli and GBS. S/p 2 washouts. Discussed with general surgery: no evidence of osteo on MRI. will change from cipro to aztreonam; continue vanco until MRSA screen result is back. Continue flagyl for now. NINI positive: ?vasculitis. Pathology not yet back. ?Pyoderma HIV neg. Hep B surface AB +, antigen neg; Core Ab neg, c/w immunized status. Discussed with Dr Richey. (2) Dry gangrene: Status: Acute Assessment and plan: As above (3) Hyperthyroidism: Status: Chronic Assessment and plan: The patient is not currently in thyroid storm but is at risk of one. Discussed with [facility] [place] endocrinology: TSI not back - awaiting. Has a thyroid nodule. Because she has received IV contrast with her CT, she is not a candidate for uptake scan. She cannot tolerate BB due to hypotension. Recommendations were to start methimazole 5 mg daily. In the future, she would have to come off of methimazole for a week before having the uptake scan. If nodule is cold, she would then have to have a biopsy. If hot, then methimazole would have to be continued. FT4/Total T3 need to be checked in 2 weeks. No benefit in checking TSH for 6 weeks. (4) Hypokalemia due to loss of potassium: Status: Resolved Assessment and plan: Repleted. Magnesium also repleted. (5) Hypoalbuminemia due to protein-calorie malnutrition: Status: Acute Assessment and plan: Trace protein on UA. Encourage nutrition - nutrition is consulted. (6) Narcotic abuse in remission: Assessment and plan: Continue suboxone. HIV neg. Hep C neg. Immunized against Hep B. Subjective Subjective Interval history since last seen: S/p repeat wound debridement and washout R medial/lateral ankle wounds today. MRI RLE read is pending. Denies dizziness, chest pain, shortness of breath,nausea. I discussed the findings of the thyroid ultrasound with her, which she was very upset about (the thyroid nodule that eventually may need a biopsy). Exam Narrative Exam Narrative: General: Tearful anxious malnourished female, A&Ox3, appears comfo rtable HEENT: EOMI, MMM Cardiovascular: RRR, mildly tachycardic, no m/r/g Lungs: CTAB Gastrointestinal: soft,nontender, nondistended Extremities: no edema BLEs, distal RLE dressed in bulky dressing with a knitted colorful sock on top Objective Last Vital Signs Temp 37.6 C H 11/15/21 15:23 Pulse 121 H 11/15/21 15:23 Resp 19 11/15/21 15:23 BP 97/58 L 11/15/21 15:23 Pulse Ox 98 11/15/21 15:23 Laboratory Results - last 24 hr 11/14/21 11/14/21 11/14/21 06:35 06:35 06:35 WBC RBC Hgb Hct MCV MCH MCHC RDW Plt Count MPV Immature Gran % Neutrophils % Lymphocytes % Monocytes % Eosinophils % Basophils % Nucleated RBC % Absolute Neutrophils Absolute Lymphocytes Absolute Monocytes Absolute Eosinophils Absolute Basophils Sodium Potassium Chloride Carbon Dioxide Anion Gap BUN Creatinine Estimated GFR/1.73 m2 Glucose Calcium Magnesium C-Reactive Protein 25-OH Vitamin D Total 13.8 L Total T3 NINI Titer NINI Titer 2 NINI Titer 3 NINI Interpretation Thyroperoxidase Ab Thyroglobulin Antibody Hep Bs Antigen Negative Hep Bs Antibody Positive Hep Bs Antibody, Quant 22.8 Hep B Core Total Ab Negative Hepatitis C Antibody Negative HIV 1&2 Ag/Ab, 4th Gen Negative 11/14/21 11/14/21 11/15/21 06:35 06:35 06:42 WBC RBC Hgb Hct MCV MCH MCHC RDW Plt Count MPV Immature Gran % Neutrophils % Lymphocytes % Monocytes % Eosinophils % Basophils % Nucleated RBC % Absolute Neutrophils Absolute Lymphocytes Absolute Monocytes Absolute Eosinophils Absolute Basophils Sodium 141 Potassium 3.4 L Chloride 110 H Carbon Dioxide 24.4 Anion Gap 6.6 BUN 11 Creatinine 0.4 L Estimated GFR/1.73 m2 >= 60.00 Glucose 98 Calcium 8.5 Magnesium 1.6 L C-Reactive Protein 11.77 H 25-OH Vitamin D Total Total T3 166 NINI Titer 1:80 Speckled NINI Titer 2 Not Applicable NINI Titer 3 Not Applicable NINI Interpretation Positive A Thyroperoxidase Ab <28 Thyroglobulin Antibody <15 Hep Bs Antigen Hep Bs Antibody Hep Bs Antibody, Quant Hep B Core Total Ab Hepatitis C Antibody HIV 1&2 Ag/Ab, 4th Gen 11/15/21 06:42 WBC 11.74 H RBC 3.66 L Hgb 9.5 L Hct 31.9 L MCV 87.2 MCH 26.0 L MCHC 29.8 L RDW 16.7 H Plt Count 399 MPV 9.3 Immature Gran % 0.3 Neutrophils % 81.4 Lymphocytes % 12.1 Monocytes % 4.6 Eosinophils % 1.3 Basophils % 0.3 Nucleated RBC % 0 Absolute Neutrophils 9.56 H Absolute Lymphocytes 1.42 Absolute Monocytes 0.54 Absolute Eosinophils 0.15 Absolute Basophils 0.04 Sodium Potassium Chloride Carbon Dioxide Anion Gap BUN Creatinine Estimated GFR/1.73 m2 Glucose Calcium Magnesium C-Reactive Protein 25-OH Vitamin D Total Total T3 NINI Titer NINI Titer 2 NINI Titer 3 NINI Interpretation Thyroperoxidase Ab Thyroglobulin Antibody Hep Bs Antigen Hep Bs Antibody Hep Bs Antibody, Quant Hep B Core Total Ab Hepatitis C Antibody HIV 1&2 Ag/Ab, 4th Gen Objective Narrative Objective Narrative: US thyroid: TIRADS level 4 right thyroid nodule.
[2021-11-15] MEDS: Normal Saline 500 ML 30 ML IV (16:11)
[2021-11-15] MEDS: IRON SUCROSE COMPLEX 200 MG in Normal Saline 100 ML 400 MG IVPB (16:11)
--- NOTE | 2021-11-15 16:26 | CHAPLAIN ---
I received a referral from Dr. Richey to visit Nicol. Yesterday when I visited she didn't look up from her phone. Today I brought in a comfort shawl for her. She looked at me briefly. She became tearful telling me about her kids at home, age 20, 19, 12 and 2 and a one year old grandchild. She said she feels like this is her fault that she's away from them because she know she should have come in to get medical attention for her wound earlier, but put it off until her family member became angry with her. She said she is disappointed in herself because she should be taking care of her and that the older kids didn't ask to have kids, so they shouldn't have to take care of the younger ones. I suggested that she be easier on herself, as parents aren't perfect, but it didn't seem that much would make her feel better. Her family members can't visit because they are not vaccinated and if she were to talk to them on the phone, that would make her feel worse. I will continue to visit.
[2021-11-15] MEDS: methIMAzole 5 MG TAB PO (16:30)
[2021-11-15] MEDS: Acetaminophen 325 MG TAB 650 MG PO (16:30)
[2021-11-15] MEDS: Protein Nutritional Supplement 16 GM 1 OUNCE PACKET PO (16:35)
[2021-11-15] MEDS: Zinc Sulfate 220 MG TAB PO (16:36)
[2021-11-15] MEDS: AZTREONAM 2,000 MG in Normal Saline 100 ML 200 MG IVPB (17:40)
[2021-11-15] MEDS: Ascorbic Acid 500 MG TAB PO (19:52)
[2021-11-15 20:17] LABS: Lab Add On Test DONE
[2021-11-16] MEDS: Ketorolac 15 MG/ML VIAL IVP ×5 (00:01→23:22)
[2021-11-16] MEDS: Normal Saline Flush 10 ML SYR IVP ×7 (00:01→23:22)
[2021-11-16] MEDS: AZTREONAM 2,000 MG in Normal Saline 100 ML 200 MG IVPB (01:30)
[2021-11-16] MEDS: Famotidine 20 MG/2 ML VIAL IVP ×2 (05:30→18:19)
[2021-11-16 07:04] LABS: Abs Immature Grans 0.03 10^3/uL (0.0-0.06); Absolute Basophil Count 0.03 10^3/uL (0.0-0.2); Absolute Eosinophil Count 0.41 10^3/uL (0.0-0.7); Absolute Lymphocyte Count 1.53 10^3/uL (1.2-3.4); Absolute Monocyte Count 0.53 10^3/uL (0.1-0.8); Absolute Neutrophil Count 6.99 10^3/uL (1.2-6.7); Basophils % 0.3; Eosinophils % 4.3; HCT 30.1 % (36.0-46.0); HGB 9.2 g/dL (11.2-15.7); Immature Grans % 0.3; Lymphocytes % 16.1; MCH 26.2 pg (27.0-33.0); MCHC 30.6 % (32.0-36.0); MCV 85.8 fL (80-95); MPV 9.4 fL (8.0-11.0); Monocytes % 5.6; Neutrophils % 73.4; Nucleated RBC 0 %; Platelet Count 394 10^3/uL (130-400); RBC 3.51 10^6/uL (3.93-5.22); RDW 16.7 % (11.7-14.6); RDW-SD 52.6 fL; WBC 9.52 10^3/uL (4.4-10.8)
[2021-11-16 07:14] LABS: Anion Gap 6.3 mmol/L (3-11); BUN 9 mg/dL (7-18); C-Reactive Protein 10.44 mg/dL (0.0-0.3); CO2 26.7 mmol/L (21.0-32.0); CREATININE 0.4 mg/dL (0.55-1.02); Calcium 8.6 mg/dL (8.5-10.1); Chloride 109 mmol/L (98-107); Glucose 87 mg/dL (74-106); Magnesium 1.6 mg/dL (1.8-2.4); Potassium 3.6 mmol/L (3.5-5.1); Sodium 142 mmol/L (136-145)
[2021-11-16 07:42] VITALS: BP 106/75; PULSE 98; RESP 18; TEMP 37.4; O2SAT 98
--- NOTE | 2021-11-16 08:24 | PDOC.CMPRO ---
- If Service Date Differs Date of service: 11/16/21 Time of Service: 08:24 Care Management Progress Note S/O: Nicol is being followed by Surgery and Medical. She continues to require IV ABX and surgical intervention. Cultures are pending. Her labs are being closely monitored for low TSH, malnorishment and low potassium. A right thyroid nodule was seen on her recent thyroid US, which per provider requires further work up. Nicol reports that her pain has been well controlled with Toradol and Tylenol. Dr. Richey, is anticipating placing an Integra skin graft in time and may need to transition to SWB1 status when medically ready, while waiting for the graft. A: 36 year old female admitted to [facility] on 11/13/21 for Dry, Gangrene RLE. P: Nicol is being followed by surgery and medical. Her labs are being closely monitored and she continues to require IV abx and surgical intervention for gangrenous wound(s) on her right ankle, cultures are pending. Anticipate, Nicol will transition to SWB1 status when medically ready, until Surgery feels the area is able to accept a skin graft. Anticipate, Nicol will be discharged home with new [facility] RN/PT via private vehicle with family when she is medically ready. She will follow up with community providers and discharge plan of care as prescribed.
[2021-11-16] MEDS: Ascorbic Acid 500 MG TAB PO (08:37)
[2021-11-16] MEDS: Zinc Sulfate 220 MG TAB PO (08:37)
[2021-11-16] MEDS: Cyanocobalamin 500 MCG TAB 1000 MCG PO (08:37)
[2021-11-16] MEDS: Protein Nutritional Supplement 16 GM 1 OUNCE PACKET PO ×2 (08:38→15:02)
[2021-11-16] MEDS: Buprenorphine/Naloxone 2 mg/0.5 mg FILM 1 EACH SL (08:43)
[2021-11-16] MEDS: Buprenorphine/Naloxone 8 mg/2 mg FILM 2 EACH SL (08:43)
[2021-11-16] MEDS: methIMAzole 5 MG TAB PO (08:44)
[2021-11-16] MEDS: Acetaminophen 325 MG TAB 650 MG PO ×2 (08:48→14:51)
[2021-11-16] MEDS: MAGNESIUM SULFATE 2 GM/50 ML BAG IVPB (10:33)
--- NOTE | 2021-11-16 11:06 | NS.NUTBLAN_ITS ---
Date of service: 11/16/21 Time of Service: 11:06 Nutritional Consult ASSESSMENT: Reason for visit: Nutrition consult request Ms. Akhtar presents with right ankle ulcer. She is 150 cm and 38.5 kg. Her BMI is 16.7 kg/m2 c/w underweight. She has had a 10% weight loss in the past 5 mon ths which is significant and which she relates to having COVID. Of note, although not pertinent to her current nutrition assessment, she has lost 30% of her body weight in the past 10 years, based on weight history in [facility]. She does have the appearance of muscle wasting. She has fair PO intake on a regular diet. She states that she is a vegetarian, however she does not include vegetables in her diet. Her preferred vegetarian foods are chips and other nutrient poor foods. She is getting the 1 oz. liquid protein, three times per day to provide 45 grams of protein. She also gets zinc,C, and B vitamins for wound healing. We are providing [place] Instant Breakfast with meals. Today at lunch, she did order a grilled cheese as well. Estimated energy needs are: 1350 -1540 kcal/day (35-40 kcal/kg/day for slow weight gain) Estimated protein needs are: 58 g-77 g/day (1.5-2.0 g/kg/day for anabolism) Estimated fluid needs: 1600 ml/day (1 ml/kcal/day) NUTRITIONAL DIAGNOSIS: Moderate malnutrition in the setting of acute illness related to inadequate caloric intake as well as nutrient poor intake. Moderate malnutrition is evidenced by significant recent weight loss and muscle wasting. INTERVENTION: Continue with liquid protein and vitamins. [place] Instant Breakfast with me als. Encourage Ms. Akhtar to choose nutrient dense entrees for meals. MONITORING AND EVALUATION: Will monitor weight, PO, and tolerance to nutrition care plan. Will evaluate nutrition care plan ongoing and adjust as needed. Time Spent in Nutritional Counseling and Treatment: 10 minutes
--- NOTE | 2021-11-16 11:53 | PGE_ITS ---
Date of Service Date of service: 11/16/21 Time of Service: 11:53 Assessment and Plan Assessment and plan (1) Leukocytosis (leucocytosis): Status: Acute Assessment and plan: POD#1 and 3 s/p right medial and lateral ankle wound debridement -Woud vac placed bedside today, currently set to 125mmHg, can lower to 100mmHg if to assist with patient tolerance/discomfort. To be changed Mondays/Fridays. -Continue IV Abx, wound cx + e. coli and GBS, MUST ensure no infection present for potential grafting success -Multimodal analgesics, no opiates due to hx of abuse and on suboxone, consider spinal/epidural or femoral nerve block for better pain control especially for dressing changes -Needs to continue high protein diet, has evidence of muscle wasting. Check prealbumin for long-term nutrition status monitoring -Hyperthyroidism, +nodule on US, radioactive iodine uptake scan cannot be done for 2 months due to recent iodinated IV contrast. [place] [facility], methimazole started. -Medical management per hospitalist, recommendations appreciated. -Encourage ambulation with assistance (2) Hypoalbuminemia due to protein-calorie malnutrition: Status: Acute (3) Dry gangrene: Status: Acute Assessment and plan: POD #2 s/p wound debridement and wash out of right medial and lateral ankle. Awaiting wound cultures. Dressing in place, did not remove per Dr. Richey's instructions. DIET- High protein. Please provide ensures between meals to increase calorie and protein intake. Continue IV antibiotics PT ordered for gait training Pulmonary Toilet Pain well controlled, Toradol and Tylenol ordered at this time. OR today for debridement and wash out with Dr. Richey (4) Smoker unmotivated to quit: Status: Acute (5) Open ankle wound: Status: Acute (6) Wound infection: Status: Acute Subjective Subjective Patient reports: no new complaints, still having pain and bowel movement; denies nausea or vomiting Exam Const General: cooperative, comfortable and no acute distress Nutritional Appearance: cachectic and malnourished Orientation: alert, awake and oriented x3 Resp Effort & Inspection: normal respiratory effort, no audible wheezes, no cough and no respiratory distress Cardio Rate: regular rate Rhythm: regular rhythm Skin General skin exam: dry skin and other (hemosiderin laden lower extremities) Wounds: wounds noted right ankle bed granulating well and beefy red; Negative for not necrotic, drainage serosanguinous, without odor, open and with surrounding erythema (minimal) Hair: total alopecia Objective Last Vital Signs Temp 99.3 F 11/16/21 07:42 Pulse 98 H 11/16/21 07:42 Resp 18 11/16/21 07:42 BP 106/75 11/16/21 07:42 Pulse Ox 98 11/16/21 07:42 Laboratory Results - last 24 hr 11/14/21 11/15/21 11/15/21 06:35 06:42 16:00 WBC RBC Hgb Hct MCV MCH MCHC RDW Plt Count MPV Immature Gran % Neutrophils % Lymphocytes % Monocytes % Eosinophils % Basophils % Nucleated RBC % Absolute Neutrophils Absolute Lymphocytes Absolute Monocytes Absolute Eosinophils Absolute Basophils Sodium Potassium Chloride Carbon Dioxide Anion Gap BUN Creatinine Estimated GFR/1.73 m2 Glucose Calcium Magnesium C-Reactive Protein Vancomycin Trough Cancelled NINI Titer 1:80 Speckled NINI Titer 2 Not Applicable NINI Titer 3 Not Applicable NINI Interpretation Positive A Add-On Test Request DONE 11/16/21 11/16/21 06:32 06:32 WBC 9.52 RBC 3.51 L Hgb 9.2 L Hct 30.1 L MCV 85.8 MCH 26.2 L MCHC 30.6 L RDW 16.7 H Plt Count 394 MPV 9.4 Immature Gran % 0.3 Neutrophils % 73.4 Lymphocytes % 16.1 Monocytes % 5.6 Eosinophils % 4.3 Basophils % 0.3 Nucleated RBC % 0 Absolute Neutrophils 6.99 H Absolute Lymphocytes 1.53 Absolute Monocytes 0.53 Absolute Eosinophils 0.41 Absolute Basophils 0.03 Sodium 142 Potassium 3.6 Chloride 109 H Carbon Dioxide 26.7 Anion Gap 6.3 BUN 9 Creatinine 0.4 L Estimated GFR/1.73 m2 >= 60.00 Glucose 87 Calcium 8.6 Magnesium 1.6 L C-Reactive Protein 10.44 H Vancomycin Trough NINI Titer NINI Titer 2 NINI Titer 3 NINI Interpretation Add-On Test Request
[2021-11-16] MEDS: AZTREONAM 2,000 MG in Normal Saline 100 ML 100 MG IVPB ×2 (12:40→18:23)
[2021-11-16] MEDS: Enoxaparin 40 MG/0.4 ML SYR SC (12:41)
[2021-11-16] MEDS: Normal Saline Flush 10 ML SYR (14:00)
[2021-11-16] MEDS: HYDROmorphone 2 MG/ML VIAL (14:01)
[2021-11-16] MEDS: hydrOXYzine PAMOATE 25 MG CAP PO (14:51)
[2021-11-16 15:07] VITALS: BP 106/71; PULSE 115; RESP 22; TEMP 37.5; O2SAT 98
--- NOTE | 2021-11-16 15:48 | PT.INNT ---
PT Notes Visit Reasons: Dry,Gangrene RLE Pt refused her PT session today due to being in too much discomfort.
[2021-11-16] MEDS: traMADol 50 MG TAB 200 MG PO (16:05)
--- NOTE | 2021-11-16 16:11 | W.PM.PROGNOT ---
Date of Service Date of service: 11/16/21 Time of Service: 16:11 Assessment and Plan Assessment and plan (1) Wound infection: Status: Acute Assessment and plan: DDx: primary wound infection; pyoderma gangrenosum, vasculitis/thrombotic complication of COVID-19. Wound cx with E. Coli and GBS. Biopsy results are still not back S/p 2 washouts. Discussed with general surgery: no evidence of osteo on MRI. There is actually granulation tissue in her wound.Continue aztreonam and flagyl. NINI positive: ?vasculitis. Pathology not yet back. ?Pyoderma HIV neg. Hep B surface AB +, antigen neg; Core Ab neg, c/w immunized status. Discussed with Dr Richey. (2) Dry gangrene: Status: Acute Assessment and plan: As above (3) Hyperthyroidism: Status: Chronic Assessment and plan: The patient is not currently in thyroid storm but is at risk of one. Discussed with [facility] [place] endocrinology: TSI not back - awaiting. Has a thyroid nodule. Because she has received IV contrast with her CT, she is not a candidate for uptake scan. She cannot tolerate BB due to hypotension. Recommendations were to start methimazole 5 mg daily. In the future, she would have to come off of methimazole for a week before having the uptake scan. If nodule is cold, she would then have to have a biopsy. If hot, then methimazole would have to be continued. FT4/Total T3 need to be checked in 2 weeks. No benefit in checking TSH for 6 weeks. (4) Hypokalemia due to loss of potassium: Status: Resolved Assessment and plan: Repleted. Magnesium repleted this am. (5) Hypoalbuminemia due to protein-calorie malnutrition: Status: Acute Assessment and plan: Trace protein on UA. Encourage nutrition - nutrition is consulted. (6) Narcotic abuse in remission: Assessment and plan: Continue suboxone. HIV neg. Hep C neg. Immunized against Hep B. Subjective Subjective Interval history since last seen: C/o pain during dressing change earlier today. Denies dizziness, chest pain, shortness of breath, nausea. Wants to go home. We discussed how eventually, when on swing bed level status, she would be able to do that. Exam Narrative Exam Narrative: General: Tearful anxious malnourished female, A&Ox3 HEENT: EOMI, MMM Cardiovascular: RRR, mildly tachycardic, no m/r/g Lungs: CTAB Gastrointestinal: soft,nontender, nondistended Extremities: no edema BLEs, distal RLE dressed with wound vac in place Objective Last Vital Signs Temp 37.5 C 11/16/21 15:07 Pulse 115 H 11/16/21 15:07 Resp 22 11/16/21 15:07 BP 106/71 11/16/21 15:07 Pulse Ox 98 11/16/21 15:07 Laboratory Results - last 24 hr 11/15/21 11/15/21 11/16/21 06:42 16:00 06:32 WBC RBC Hgb Hct MCV MCH MCHC RDW Plt Count MPV Immature Gran % Neutrophils % Lymphocytes % Monocytes % Eosinophils % Basophils % Nucleated RBC % Absolute Neutrophils Absolute Lymphocytes Absolute Monocytes Absolute Eosinophils Absolute Basophils Sodium 142 Potassium 3.6 Chloride 109 H Carbon Dioxide 26.7 Anion Gap 6.3 BUN 9 Creatinine 0.4 L Estimated GFR/1.73 m2 >= 60.00 Glucose 87 Calcium 8.6 Magnesium 1.6 L C-Reactive Protein 10.44 H Vancomycin Trough Cancelled Add-On Test Request DONE 11/16/21 06:32 WBC 9.52 RBC 3.51 L Hgb 9.2 L Hct 30.1 L MCV 85.8 MCH 26.2 L MCHC 30.6 L RDW 16.7 H Plt Count 394 MPV 9.4 Immature Gran % 0.3 Neutrophils % 73.4 Lymphocytes % 16.1 Monocytes % 5.6 Eosinophils % 4.3 Basophils % 0.3 Nucleated RBC % 0 Absolute Neutrophils 6.99 H Absolute Lymphocytes 1.53 Absolute Monocytes 0.53 Absolute Eosinophils 0.41 Absolute Basophils 0.03 Sodium Potassium Chloride Carbon Dioxide Anion Gap BUN Creatinine Estimated GFR/1.73 m2 Glucose Calcium Magnesium C-Reactive Protein Vancomycin Trough Add-On Test Request
[2021-11-16] MEDS: LORazepam 2 MG/ML VIAL 1 MG IVP (16:26)
--- NOTE | 2021-11-16 17:37 | CHAPLAIN ---
Nicol was sitting up in bed, and on the phone with her and kids, when I visited. She was teary and told me that she's been told that she needs to stay here for two months, not two weeks, as she was first told, according to her. She said she can't stay that long because her children have doctors' appointments and she needs to take them. A friend from [place] was visiting and assured Nicol that she would continue to visit. Nicol was very distraught about hearing she may be here for two months, and she said her would was burning. Family members can't visit because they are not vaccinated. I will continue to visit.
[2021-11-16 21:56] VITALS: O2SAT 94
[2021-11-16 23:20] VITALS: BP 105/70; PULSE 103; RESP 24; TEMP 37.1; O2SAT 97
[2021-11-17] MEDS: AZTREONAM 2,000 MG in Normal Saline 100 ML 100 MG IVPB (02:02)
[2021-11-17] MEDS: Normal Saline 500 ML 30 ML IV (02:03)
[2021-11-17] MEDS: Normal Saline Flush 10 ML SYR IVP ×6 (02:03→23:39)
[2021-11-17] MEDS: Acetaminophen 325 MG TAB 650 MG PO ×4 (03:38→23:02)
[2021-11-17] MEDS: Ketorolac 15 MG/ML VIAL IVP ×4 (05:43→23:39)
[2021-11-17] MEDS: Famotidine 20 MG/2 ML VIAL IVP ×2 (05:43→17:30)
[2021-11-17 06:16] LABS: Abs Immature Grans 0.01 10^3/uL (0.0-0.06); Absolute Basophil Count 0.01 10^3/uL (0.0-0.2); Absolute Eosinophil Count 0.43 10^3/uL (0.0-0.7); Absolute Monocyte Count 0.47 10^3/uL (0.1-0.8); Absolute Neutrophil Count 5.67 10^3/uL (1.2-6.7); Basophils % 0.1; Eosinophils % 5.3; HCT 30.9 % (36.0-46.0); HGB 9.5 g/dL (11.2-15.7); Immature Grans % 0.1; Lymphocytes % 18.5; MCH 26.1 pg (27.0-33.0); MCHC 30.7 % (32.0-36.0); MCV 84.9 fL (80-95); MPV 9.1 fL (8.0-11.0); Monocytes % 5.8; Neutrophils % 70.2; Nucleated RBC 0 %; Platelet Count 395 10^3/uL (130-400); RBC 3.64 10^6/uL (3.93-5.22); RDW 16.8 % (11.7-14.6); RDW-SD 52.6 fL; WBC 8.09 10^3/uL (4.4-10.8)
[2021-11-17 06:25] LABS: Anion Gap 4.6 mmol/L (3-11); BUN 11 mg/dL (7-18); CO2 28.4 mmol/L (21.0-32.0); CREATININE 0.5 mg/dL (0.55-1.02); Calcium 8.7 mg/dL (8.5-10.1); Chloride 107 mmol/L (98-107); Glucose 81 mg/dL (74-106); Potassium 4.1 mmol/L (3.5-5.1); Sodium 140 mmol/L (136-145)
[2021-11-17 06:28] LABS: C-Reactive Protein 8.33 mg/dL (0.0-0.3)
[2021-11-17 06:47] VITALS: BP 105/69; PULSE 89; RESP 20; TEMP 36.8; O2SAT 95
[2021-11-17] MEDS: Cyanocobalamin 500 MCG TAB 1000 MCG PO (09:23)
[2021-11-17] MEDS: methIMAzole 5 MG TAB PO (09:24)
[2021-11-17] MEDS: Ascorbic Acid 500 MG TAB PO ×2 (09:24→19:56)
[2021-11-17] MEDS: Zinc Sulfate 220 MG TAB PO (09:24)
[2021-11-17] MEDS: Enoxaparin 40 MG/0.4 ML SYR SC (09:31)
[2021-11-17] MEDS: AZTREONAM 2,000 MG in Normal Saline 100 ML 200 MG IVPB ×2 (09:31→17:38)
[2021-11-17] MEDS: Buprenorphine/Naloxone 2 mg/0.5 mg FILM 1 EACH SL (09:31)
[2021-11-17] MEDS: Buprenorphine/Naloxone 8 mg/2 mg FILM 2 EACH SL (09:32)
--- NOTE | 2021-11-17 09:59 | NT_ITS ---
PT Notes Visit Reasons: Dry,Gangrene RLE 11/17/2021 Refused x 2 due to 07/08 pain Nieves Olivarez, [facility]
--- NOTE | 2021-11-17 10:44 | PGE_ITS ---
Date of Service Date of service: 11/17/21 Time of Service: 10:45 Assessment and Plan Assessment and plan (1) Leukocytosis (leucocytosis): Status: Acute Assessment and plan: POD#2 and 4 s/p right medial and lateral ankle wound debridement -Woud vac placed bedside yesterday, currently set to 125mmHg, can lower to 100mmHg if to assist with patient tolerance/discomfort. To be changed Mondays/Fridays. -Continue IV Abx, wound cx + e. coli and GBS, MUST ensure no infection present for potential grafting success -Multimodal analgesics, no opiates due to hx of abuse and on suboxone, consider spinal/epidural or femoral nerve block for better pain control especially for dressing changes -Needs to continue high protein diet, has evidence of muscle wasting. Check prealbumin for intermediate nutrition status monitoring -Hyperthyroidism, +nodule on US, radioactive iodine uptake scan cannot be done for 2 months due to recent iodinated IV contrast. F/u with [facility] [place] end[place], methimazole started. -Thyroid US with TIRADS 4; will likely need right thyroid lobe needle biopsy; findings are suspicious for possible malignancy -Medical management per hospitalist, recommendations appreciate; 0.5mg PO Ativan added PRN for anxiety -Encourage ambulation with assistance (2) Hypoalbuminemia due to protein-calorie malnutrition: Status: Acute (3) Dry gangrene: Status: Acute Assessment and plan: POD #2 s/p wound debridement and wash out of right medial and lateral ankle. Awaiting wound cultures. Dressing in place, did not remove per Dr. Richey's instructions. DIET- High protein. Please provide ensures between meals to increase calorie and protein intake. Continue IV antibiotics PT ordered for gait training Pulmonary Toilet Pain well controlled, Toradol and Tylenol ordered at this time. OR today for debridement and wash out with Dr. Richey (4) Smoker unmotivated to quit: Status: Acute (5) Open ankle wound: Status: Acute (6) Wound infection: Status: Acute Subjective Subjective Patient reports: no new complaints, still having pain and tolerating a regular diet; denies nausea or vomiting Exam Const General: cooperative, comfortable and anxious Nutritional Appearance: cachectic and malnourished Orientation: alert, awake and oriented x3 Resp Effort & Inspection: normal respiratory effort, no audible wheezes, no cough and no respiratory distress Cardio Rate: regular rate Rhythm: regular rhythm Skin General skin exam: dry skin and other (hemosiderin laden lower extremities) Wounds: wounds noted right ankle bed granulating well and beefy red; Negative for not necrotic, drainage serosanguinous, without odor, open and with surrounding erythema (minimal) Hair: total alopecia Extrem General: other (muscle wasting) Right lower extremity: ankle (wound vac in place) Details: tenderness, swelling, abnormal ROM and other Psych Appearance: disheveled Mood: anxious mood and dysthymic mood Affect: sad Attitude: guarded Thought Process: perseverating Insight: poor Judgment: poor Objective Last Vital Signs Temp 98.2 F 11/17/21 06:47 Pulse 89 11/17/21 06:47 Resp 20 11/17/21 06:47 BP 105/69 11/17/21 06:47 Pulse Ox 95 11/17/21 06:47 Laboratory Results - last 24 hr 11/17/21 11/17/21 11/17/21 06:02 06:02 06:02 WBC 8.09 RBC 3.64 L Hgb 9.5 L Hct 30.9 L MCV 84.9 MCH 26.1 L MCHC 30.7 L RDW 16.8 H Plt Count 395 MPV 9.1 Immature Gran % 0.1 Neutrophils % 70.2 Lymphocytes % 18.5 Monocytes % 5.8 Eosinophils % 5.3 Basophils % 0.1 Nucleated RBC % 0 Absolute Neutrophils 5.67 Absolute Lymphocytes 1.50 Absolute Monocytes 0.47 Absolute Eosinophils 0.43 Absolute Basophils 0.01 Sodium 140 Potassium 4.1 Chloride 107 Carbon Dioxide 28.4 Anion Gap 4.6 BUN 11 Creatinine 0.5 L Estimated GFR/1.73 m2 >= 60.00 Glucose 81 Calcium 8.7 Magnesium 2.0 C-Reactive Protein 8.33 H
[2021-11-17 15:41] VITALS: BP 113/68; PULSE 87; RESP 18; TEMP 36.9; O2SAT 97
[2021-11-17] MEDS: hydrOXYzine PAMOATE 25 MG CAP PO (15:46)
--- NOTE | 2021-11-17 16:28 | PGE_ITS ---
Date of Service Date of service: 11/17/21 Time of Service: 16:28 Assessment and Plan Assessment and plan (1) Wound infection: Start date: 11/17/21 Start time: 16:32 Status: Acute Assessment and plan: DDx: primary wound infection; pyoderma gangrenosum, vasculitis/thrombotic complication of COVID-19. Wound cx with E. Coli and GBS. Biopsy results are still not back S/p 2 washouts. Discussed with general surgery: no evidence of osteo on MRI. There is actually granulation tissue in her wound.Continue aztreonam and flagyl. NINI positive: ?vasculitis. Pathology not yet back. ?Pyoderma HIV neg. Hep B surface AB +, antigen neg; Core Ab neg, c/w immunized status. Discussed with Dr Richey, by previous provider (2) Dry gangrene: Start date: 11/17/21 Start time: 16:33 Status: Acute Assessment and plan: As above (3) Hyperthyroidism: Start date: 11/17/21 Start time: 16:34 Status: Chronic Assessment and plan: The patient is not currently in thyroid storm but is at risk of one. [place] [facility]: TSI not back - awaiting. Has a thyroid nodule. Because she has received IV contrast with her CT, she is not a candidate for uptake scan. She cannot tolerate BB due to hypotension. Recommendations were to start methimazole 5 mg daily. In the future, she would have to come off of methimazole for a week before having the uptake scan. If nodule is cold, she would then have to have a biopsy. If hot, then methimazole would have to be continued. FT4/Total T3 need to be checked in 2 weeks. No benefit in checking TSH for 6 weeks. (4) Hypokalemia due to loss of potassium: Start date: 11/17/21 Start time: 16:35 Status: Resolved Assessment and plan: Repleted. (5) Hypoalbuminemia due to protein-calorie malnutrition: Start date: 11/17/21 Start time: 16:35 Status: Acute Assessment and plan: Trace protein on UA. Encourage nutrition - nutrition is consulted. (6) Narcotic abuse in remission: Start date: 11/17/21 Start time: 16:35 Assessment and plan: Continue suboxone. HIV neg. Hep C neg. Immunized against Hep B. discussed with Dr. Goff Subjective Subjective Patient reports: still having pain Interval history since last seen: Pain to foot, upset she wants to go home, wound vac in place. Exam Narrative Exam Narrative: General: anxious malnourished female, A&Ox3 HEENT: EOMI, MMM Cardiovascular: RRR, mildly tachycardic, no m/r/g Lungs: CTAB Gastrointestinal: soft,nontender, nondistended Extremities: no edema BLEs, distal RLE dressed with wound vac in place Objective Last Vital Signs Temp 36.9 C 11/17/21 15:41 Pulse 87 11/17/21 15:41 Resp 18 11/17/21 15:41 BP 113/68 11/17/21 15:41 Pulse Ox 97 11/17/21 15:41 Laboratory Results - last 24 hr 11/17/21 11/17/21 11/17/21 06:02 06:02 06:02 WBC 8.09 RBC 3.64 L Hgb 9.5 L Hct 30.9 L MCV 84.9 MCH 26.1 L MCHC 30.7 L RDW 16.8 H Plt Count 395 MPV 9.1 Immature Gran % 0.1 Neutrophils % 70.2 Lymphocytes % 18.5 Monocytes % 5.8 Eosinophils % 5.3 Basophils % 0.1 Nucleated RBC % 0 Absolute Neutrophils 5.67 Absolute Lymphocytes 1.50 Absolute Monocytes 0.47 Absolute Eosinophils 0.43 Absolute Basophils 0.01 Sodium 140 Potassium 4.1 Chloride 107 Carbon Dioxide 28.4 Anion Gap 4.6 BUN 11 Creatinine 0.5 L Estimated GFR/1.73 m2 >= 60.00 Glucose 81 Calcium 8.7 Magnesium 2.0 C-Reactive Protein 8.33 H
[2021-11-17] MEDS: Protein Nutritional Supplement 16 GM 1 OUNCE PACKET PO (19:56)
[2021-11-18 00:03] VITALS: BP 102/70; PULSE 82; RESP 18; TEMP 36.5; O2SAT 98
[2021-11-18] MEDS: Ketorolac 15 MG/ML VIAL IVP (00:37)
[2021-11-18] MEDS: Normal Saline Flush 10 ML SYR IVP ×3 (00:38→05:11)
[2021-11-18] MEDS: LORazepam 0.5 MG TAB PO ×3 (01:16→13:04)
[2021-11-18] MEDS: AZTREONAM 2,000 MG in Normal Saline 100 ML 200 MG IVPB ×3 (01:16→17:09)
[2021-11-18] MEDS: Ketorolac 15 MG/ML VIAL 30 MG IVP (05:08)
[2021-11-18] MEDS: Famotidine 20 MG/2 ML VIAL IVP (05:10)
[2021-11-18 07:58] VITALS: BP 103/70; PULSE 90; RESP 15; TEMP 37.4; O2SAT 95
[2021-11-18] MEDS: Cyanocobalamin 500 MCG TAB 1000 MCG PO (08:00)
[2021-11-18] MEDS: Buprenorphine/Naloxone 2 mg/0.5 mg FILM 1 EACH SL (08:01)
[2021-11-18] MEDS: Buprenorphine/Naloxone 8 mg/2 mg FILM 2 EACH SL (08:01)
[2021-11-18] MEDS: Zinc Sulfate 220 MG TAB PO (08:01)
[2021-11-18] MEDS: Ascorbic Acid 500 MG TAB PO ×2 (08:01→22:44)
[2021-11-18] MEDS: methIMAzole 5 MG TAB PO (08:01)
[2021-11-18] MEDS: Acetaminophen 325 MG TAB 650 MG PO ×2 (08:13→16:13)
[2021-11-18] MEDS: Enoxaparin 40 MG/0.4 ML SYR SC (09:09)
--- NOTE | 2021-11-18 09:54 | NT_ITS ---
PT Notes Visit Reasons: Dry,Gangrene RLE 11/18/2021 Refused this AM due to uncontrolled pain. Checked in again later in the morning and pt was sleeping. Try again tomorrow. Nieves Olivarez, [employer]
--- NOTE | 2021-11-18 12:16 | PGE_ITS ---
Date of Service Date of service: 11/18/21 Time of Service: 12:17 Assessment and Plan Assessment and plan (1) Wound infection: Status: Acute Assessment and plan: Primary wound infection versus pyoderma gangrenosum versus secondary vasculitis/thrombotic complications COVID-19. Wound culture grew E. coli group B strep. Biopsy results are pending. She is status post 2 washouts debridement procedures. There is no evidence of osteomyelitis on MRI scan. Patient currently has granulation tissue at the base of the wound. She remains on aztreonam. Await pathology results. Rest of her work-up was negative including HIV and hepatitis studies. Continue wound vacuum. We will need to coordinate with case management for surgical services regarding prolonged care of this w ound since the patient has poor nutritional status and more than likely his wound will not heal well if the patient is discharged to home without close wound supervision. (2) Dry gangrene: Status: Acute Assessment and plan: as above (3) Hyperthyroidism: Status: Chronic Assessment and plan: patient w/ thyroid nodule likely hyperactive nodule given herhigh free T4 and very low TSH (undetectable levels). TSI is pending. She can not have radioiodine scan of her thyroid as she had recent contrast studies. Patient was started on methimazole [address] Kelley's discussion with endocrinology. Patient is intolerant of beta-blockers due to hypotension. Patient will need to come off her methimazole for a week prior to having the radioiodine uptake scan thyroid nodule. Thyroid nodule is hot and she will need to remain on methimazole indefinitely or have radiation ablation of her hyperactive nodule. We will plan to get a free T4 and total T3 repeated in 2 weeks. (4) Hypokalemia due to loss of potassium: Status: Resolved Assessment and plan: last potassium level of 4.1 yesterday. will recheck labs in the am. Patient not currently on potassium supplementation. Patient now receiving protein and calorie supplementation w/ protein shakes and protein enhanced ice cream cups (5) Hypoalbuminemia due to protein-calorie malnutrition: Status: Acute Assessment and plan: continue protein/calorie supplementation as above. Suspect chronic malnutrition due to anorexia. consider psychiatric consultation. (6) Open ankle wound: Status: Acute Assessment and plan: as above (7) Narcotic abuse in remission: Assessment and plan: chronically on suboxone replacement (8) Smoker unmotivated to quit: Status: Chronic Assessment and plan: on nicotine replacement while hospitalized. will continue on discharge and encourage her to quit smoking to improve her chances for wound healing Subjective Subjective Interval history since last seen: Patient continues to complain of pain in her right ankle. States it is a burning sensation. She is completed 5-day course of ketorolac. I will switch her over to oral NSAID including Naprosyn and will add low-dose gabapentin. She remains on aztreonam for the right ankle ulcers grew group B Strep and E. coli. Exam Narrative Exam Narrative: Full cachectic appearing female sitting up in bed with her right leg flexed and her right ankle his foot elevated acapella. Wound vacuum has been applied to the wound. Right foot without cyanosis she has palpable dorsalis pedal pulse. No edema of the lower extremities. Objective Last Vital Signs Temp 37.4 C 11/18/21 07:58 Pulse 90 11/18/21 07:58 Resp 15 11/18/21 07:58 BP 103/70 11/18/21 07:58 Pulse Ox 95 11/18/21 07:58
[2021-11-18] MEDS: Gabapentin 100 MG CAP PO (13:12)
[2021-11-18 15:06] VITALS: BP 94/69; PULSE 61; RESP 18; TEMP 37.2; O2SAT 91
[2021-11-18] MEDS: hydrOXYzine PAMOATE 25 MG CAP PO (16:13)
[2021-11-18] MEDS: Naproxen 500 MG TAB PO ×2 (16:45→22:44)
--- NOTE | 2021-11-18 18:28 | W.PM.PROGNOT ---
Date of Service Date of service: 11/18/21 Time of Service: 16:59 Assessment and Plan Assessment and plan (1) Leukocytosis (leucocytosis): Status: Resolved Assessment and plan: POD#3 and 5 s/p right medial and lateral ankle wound debridement -Woud vac placed bedside yesterday, currently set to 125mmHg, can lower to 100mmHg if to assist with patient tolerance/discomfort. To be changed Mondays/Fridays. -Continue IV Abx, wound cx + e. coli and GBS, MUST ensure no infection present for potential grafting success -Multimodal analgesics, no opiates due to hx of abuse and on suboxone, consider spinal/epidural or femoral nerve block for better pain control especially for dressing changes -Needs to continue high protein diet, has evidence of muscle wasting. 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 [place] [facility] [place] methim[place]. -Thyroid US with TIRADS 4; will likely need right thyroid lobe needle biopsy; findings are suspicious for possible malignancy -Medical management per hospitalist, recommendations appreciate; 0.5mg PO Ativan added PRN for anxiety tolerating it well -Encourage ambulation with assistance (2) Hypoalbuminemia due to protein-calorie malnutrition: Status: Acute (3) Dry gangrene: Status: Acute Assessment and plan: POD #2 s/p wound debridement and wash out of right medial and lateral ankle. Awaiting wound cultures. Dressing in place, did not remove per Dr. Richey's instructions. DIET- High protein. Please provide ensures between meals to increase calorie and protein intake. Continue IV antibiotics PT ordered for gait training Pulmonary Toilet Pain well controlled, Toradol and Tylenol ordered at this time. OR today for debridement and wash out with Dr. Richey (4) Smoker unmotivated to quit: Status: Chronic (5) Open ankle wound: Status: Acute (6) Wound infection: Status: Acute Subjective Subjective Patient reports: no new complaints, feels better, tolerating a regular diet and afebrile Exam Const General: cooperative and comfortable Nutritional Appearance: cachectic and malnourished Orientation: alert, awake and oriented x3 Resp Effort & Inspection: normal respiratory effort, no audible wheezes, no cough and no respiratory distress Cardio Rate: regular rate Rhythm: regular rhythm Skin General skin exam: dry skin and other (hemosiderin laden lower extremities) Wounds: wounds noted right ankle bed granulating well and beefy red; Negative for not necrotic, drainage serosanguinous, without odor, open and with surrounding erythema (minimal) Hair: total alopecia Extrem General: other (muscle wasting) Right lower extremity: ankle (wound vac in place) Details: tenderness, swelling, abnormal ROM and other Psych Mood: congruent mood (more calm today) Affect: sad Attitude: guarded Insight: poor Judgment: poor Objective Last Vital Signs Temp 99.0 F 11/18/21 15:06 Pulse 61 11/18/21 15:06 Resp 18 11/18/21 15:06 BP 94/69 L 11/18/21 15:06 Pulse Ox 91 L 11/18/21 15:06
[2021-11-18] MEDS: Famotidine 20 MG TAB PO (22:44)
[2021-11-18] MEDS: Gabapentin 100 MG CAP 200 MG PO (22:44)
[2021-11-18 23:19] VITALS: BP 106/65; PULSE 81; RESP 18; TEMP 36.6; O2SAT 96
[2021-11-19] MEDS: LORazepam 0.5 MG TAB PO ×3 (00:23→14:40)
[2021-11-19] MEDS: Acetaminophen 325 MG TAB 650 MG PO ×3 (00:23→23:56)
[2021-11-19] MEDS: hydrOXYzine PAMOATE 25 MG CAP PO ×2 (00:24→11:28)
[2021-11-19] MEDS: Normal Saline Flush 10 ML SYR IVP ×4 (02:18→17:27)
[2021-11-19] MEDS: Ketorolac 30 MG/ML VIAL IVP (02:18)
[2021-11-19] MEDS: AZTREONAM 2,000 MG in Normal Saline 100 ML 200 MG IVPB ×3 (02:18→17:26)
[2021-11-19 06:53] LABS: Abs Immature Grans 0.03 10^3/uL (0.0-0.06); Absolute Basophil Count 0.03 10^3/uL (0.0-0.2); Absolute Eosinophil Count 0.67 10^3/uL (0.0-0.7); Absolute Lymphocyte Count 2.29 10^3/uL (1.2-3.4); Absolute Monocyte Count 0.56 10^3/uL (0.1-0.8); Absolute Neutrophil Count 7.37 10^3/uL (1.2-6.7); Basophils % 0.3; Eosinophils % 6.1; HCT 30.9 % (36.0-46.0); HGB 9.6 g/dL (11.2-15.7); Immature Grans % 0.3; Lymphocytes % 20.9; MCH 26.2 pg (27.0-33.0); MCHC 31.1 % (32.0-36.0); MCV 84.4 fL (80-95); MPV 9.2 fL (8.0-11.0); Monocytes % 5.1; Neutrophils % 67.3; Nucleated RBC 0 %; Platelet Count 529 10^3/uL (130-400); RBC 3.66 10^6/uL (3.93-5.22); RDW 16.7 % (11.7-14.6); RDW-SD 51.6 fL; WBC 10.95 10^3/uL (4.4-10.8)
[2021-11-19 07:14] LABS: ALT 16 U/L (14-59); AST 21 U/L (15-37); Albumin 1.8 g/dL (3.4-5.0); Alkaline Phosphatase 107 U/L (46-116); Anion Gap 5.2 mmol/L (3-11); BUN 22 mg/dL (7-18); Bilirubin, Total 0.1 mg/dL (0.2-1.0); C-Reactive Protein 5.05 mg/dL (0.0-0.3); CO2 29.8 mmol/L (21.0-32.0); CREATININE 0.5 mg/dL (0.55-1.02); Calcium 8.9 mg/dL (8.5-10.1); Chloride 104 mmol/L (98-107); Glucose 88 mg/dL (74-106); Potassium 4.2 mmol/L (3.5-5.1); Sodium 139 mmol/L (136-145); Total Protein 7.1 g/dL (6.4-8.2)
[2021-11-19 08:14] VITALS: BP 115/74; PULSE 65; RESP 18; TEMP 36.4; O2SAT 95
[2021-11-19] MEDS: Buprenorphine/Naloxone 8 mg/2 mg FILM 2 EACH SL (08:19)
[2021-11-19] MEDS: Buprenorphine/Naloxone 2 mg/0.5 mg FILM 1 EACH SL (08:19)
[2021-11-19] MEDS: Cyanocobalamin 500 MCG TAB 1000 MCG PO (08:19)
[2021-11-19] MEDS: Zinc Sulfate 220 MG TAB PO (08:19)
[2021-11-19] MEDS: Ascorbic Acid 500 MG TAB PO ×2 (08:19→20:08)
[2021-11-19] MEDS: Famotidine 20 MG TAB PO ×2 (08:19→20:08)
[2021-11-19] MEDS: Gabapentin 100 MG CAP PO (08:19)
[2021-11-19] MEDS: methIMAzole 5 MG TAB PO (08:19)
[2021-11-19] MEDS: INDOMETHACIN 50 MG CAP PO ×3 (08:37→20:08)
[2021-11-19] MEDS: Enoxaparin 40 MG/0.4 ML SYR SC (09:41)
[2021-11-19 10:21] LABS: Prealbumin 7 mg/dL (20-40)
--- NOTE | 2021-11-19 11:18 | W.NUTRFU ---
Date of service: 11/19/21 Time of Service: 11:18 Nutrition Note NOTE: Met briefly with Nicol. She reports that she dislikes most of your meals but will eat sun chips, turkey sticks and ice cream. Reviewed nutrient need for weight regain and healing. Will continue to support for optimal nutritional intake. Time Spent in Nutritional Counseling and Treatment: 10
--- NOTE | 2021-11-19 11:27 | PGE_ITS ---
Date of Service Date of service: 11/19/21 Time of Service: 11:28 Assessment and Plan Assessment and plan (1) Wound infection: Status: Acute Assessment and plan: Primary wound infection versus pyoderma gangrenosum versus secondary vasculitis/thrombotic complications COVID-19. Wound culture grew E. coli group B strep. Biopsy results are pending. She is status post 2 washouts debridement procedures. There is no evidence of osteomyelitis on MRI scan. Patient currently has granulation tissue at the base of the wound. She remains on aztreonam. I will reexamine her right foot wound this afternoon and discuss her case with surgical service regarding long-term care of this wound. I suspect the patient is going to need continued antibiotics for another 2-3 weeks. (2) Dry gangrene: Status: Acute Assessment and plan: as above (3) Hyperthyroidism: Status: Chronic Assessment and plan: patient w/ thyroid nodule likely hyperactive nodule given herhigh free T4 and very low TSH (undetectable levels). TSI is pending. She can not have radioiodine scan of her thyroid as she had recent contrast studies. Patient was started on methimazole [address] Kelley's discussion with endocrinology. Patient is intolerant of beta-blockers due to hypotension. Patient will need to come off her methimazole for a week prior to having the radioiodine uptake scan thyroid nodule. Thyroid nodule is hot and she will need to remain on methimazole indefinitely or have radiation ablation of her hyperactive nodule. We will plan to get a free T4 and total T3 repeated in 2 weeks. (4) Hypokalemia due to loss of potassium: Status: Resolved Assessment and plan: Repeat potassium 4.2 today. No need for further supplementation. Encourage the patient to eat and improve her caloric intake. (5) Hypoalbuminemia due to protein-calorie malnutrition: Status: Acute Assessment and plan: continue protein/calorie supplementation as above. Suspect chronic malnutrition due to anorexia. consider psychiatric consultation. (6) Open ankle wound: Status: Acute Assessment and plan: as above (7) Narcotic abuse in remission: Assessment and plan: chronically on suboxone replacement (8) Smoker unmotivated to quit: Status: Chronic Assessment and plan: on nicotine replacement while hospitalized. will continue on discharge and encourage her to quit smoking to improve her chances for wound healing Subjective Subjective Interval history since last seen: Patient had increased pain last night or her right foot. Cottage Master gave her another dose of ketorolac last night. I have discontinued her Naprosyn in favor of indomethacin. I will adjust her gabapentin dose. She is scheduled for change of the wound vacuum at 1:30 PM this afternoon and I will return to masoud higgins her foot wound. Exam Narrative Exam Narrative: Thin frail appearing female sitting up at the bedside. She did walk for nursing and therapy today. She seems to be in brighter spirits today. The burning sensation right foot has improved since being started on gabapentin. Right foot wound is dressed with a wound vacuum therefore I cannot examine the wound. I examined her right foot more thoroughly this afternoon when the wound vacuum is changed. Objective Last Vital Signs Temp 36.4 C L 11/19/21 08:14 Pulse 65 11/19/21 08:14 Resp 18 11/19/21 08:14 BP 115/74 11/19/21 08:14 Pulse Ox 95 11/19/21 08:14 Laboratory Results - last 24 hr 11/19/21 11/19/21 06:30 06:30 WBC 10.95 H RBC 3.66 L Hgb 9.6 L Hct 30.9 L MCV 84.4 MCH 26.2 L MCHC 31.1 L RDW 16.7 H Plt Count 529 H MPV 9.2 Immature Gran % 0.3 Neutrophils % 67.3 Lymphocytes % 20.9 Monocytes % 5.1 Eosinophils % 6.1 Basophils % 0.3 Nucleated RBC % 0 Absolute Neutrophils 7.37 H Absolute Lymphocytes 2.29 Absolute Monocytes 0.56 Absolute Eosinophils 0.67 Absolute Basophils 0.03 Sodium 139 Potassium 4.2 Chloride 104 Carbon Dioxide 29.8 Anion Gap 5.2 BUN 22 H D Creatinine 0.5 L Estimated GFR/1.73 m2 >= 60.00 Glucose 88 Calcium 8.9 Total Bilirubin 0.1 L AST 21 ALT 16 Alkaline Phosphatase 107 C-Reactive Protein 5.05 H Total Protein 7.1 Albumin 1.8 L
--- NOTE | 2021-11-19 11:46 | PTTR_ITS ---
PT Notes Visit Reasons: Dry,Gangrene RLE 11/19/2021 SUBJECTIVE: Nicol stating her foot continues to be bothersome but she does want to get up and move around. She notes she is very nervous for the dressing change. OBJECTIVE: TRANSFERS Supine to sit: I Sit to supine: I Sit to stand: I Stand to sit: I GAIT Device: FWW Weight bearing : WBAT although is not touching down the r LE Assist: SBA Distance: 300' Deviation: Does not put any weight through the R LE THEREX: Stood in place working on [employer] x 10' ASSESSMENT: Is fearful to weight bear through the R LE. It was good to see her up and moving around today. She tolerates use of FWW well. PLAN: Continue with functional mobility adding some strengthening to her tolerance. Treatment time: 30 minutes Total time: 30 minutes Nieves Olivarez PTA Clinic location: [facility] [place], [place]
[2021-11-19] MEDS: traMADol 50 MG TAB 150 MG PO (12:25)
[2021-11-19] MEDS: LORazepam 2 MG/ML VIAL 1 MG IVP (12:48)
[2021-11-19] MEDS: Gabapentin 100 MG CAP 200 MG PO (13:07)
--- NOTE | 2021-11-19 13:35 | CMPROGNOTE_ITS ---
- If Service Date Differs Date of service: 11/19/21 Time of Service: 13:36 Care Management Progress Note S/O: Nicol is being followed by Surgery and Medical. Dr. Goff and Dr. Butcher observed the wound during wound vac change today, and discussed SWB1 plan. MDs advocating for family connection during extended hospitalization-to be discussed with [facility]ora. She continues to require IV ABX and wound care. Anticipating transition to SWB1 status when medically ready, while waiting for placement of Integra skin graft. CM continues to follow. A: 36 year old female admitted to [facility] on 11/13/21 for Dry, Gangrene RLE. P: Nicol will require IV abx and ongoing wound care for gangrenous wound(s) on her right ankle. Nicol will transition to SWB1 status when medically ready, until Surgery feels the area is able to accept a skin graft.
[2021-11-19 13:55] LABS: Calprotectin 352 mcg/g
--- NOTE | 2021-11-19 14:08 | PGE_ITS ---
Date of Service Date of service: 11/19/21 Time of Service: 13:30 Assessment and Plan Assessment and plan (1) Leukocytosis (leucocytosis): Status: Resolved Assessment and plan: POD#4 and 6 s/p right medial and lateral ankle wound debridement -Woud vac placed at bedside yesterday, currently set to 125mmHg, can lower to 100mmHg if to assist with patient tolerance/discomfort. - wound looks healthy. There is no granulation tissue yet but there is good blood supply - Small wound on bottom of her left foot. Keep clean and dry -Continue IV Abx, wound cx + e. coli and GBS, MUST ensure no infection present for potential grafting success -Multimodal analgesics, no opiates due to hx of abuse and on suboxone, consider spinal/epidural or femoral nerve block for better pain control especially for dressing changes -Needs to continue high protein diet, has evidence of muscle wasting. Check prealbumin for intermediate nutrition status monitoring -Hyperthyroidism, +nodules on US, radioactive iodine uptake scan cannot be done for 2 months due to recent iodinated IV contrast. F/[place] with [facility] [place], methimazole started. -Thyroid US with TIRADS 4; will likely need right thyroid lobe needle biopsy; findings are suspicious for possible malignancy -Medical management per hospitalist, recommendations appreciate; 0.5mg PO Ativan added PRN for anxiety tolerating it well -Encourage ambulation with assistance - discussed stiffness in ankle with Dr. Dumont. He will bring a boot for her to wear Hopefully will be moved to swing status (2) Hypoalbuminemia due to protein-calorie malnutrition: Status: Acute (3) Dry gangrene: Status: Acute (4) Smoker unmotivated to quit: Status: Chronic (5) Open ankle wound: Status: Acute (6) Wound infection: Status: Acute Subjective Subjective Interval history since last seen: Patient is seen at the time of dressing change. She had received some versed and was very groggy. She has not done much with PT at this time. She is afebrile. She does have a slight leukocytosis again. Exam Extrem Other: LLE- Wounds medially and laterally are beefy red. There is bleeding after the wound vac was removed. There is stiffening of her ankle. Patient is unable to flex her ankle. I am unable to passively flex her ankle. Left foot- on the ball of the foot there is a 2 cm superficial open wound. No signs of infection Objective Last Vital Signs Temp 97.5 F L 11/19/21 08:14 Pulse 65 11/19/21 08:14 Resp 18 11/19/21 08:14 BP 115/74 11/19/21 08:14 Pulse Ox 95 11/19/21 08:14 Laboratory Results - last 24 hr 11/17/21 11/19/21 11/19/21 06:02 06:30 06:30 WBC 10.95 H RBC 3.66 L Hgb 9.6 L Hct 30.9 L MCV 84.4 MCH 26.2 L MCHC 31.1 L RDW 16.7 H Plt Count 529 H MPV 9.2 Immature Gran % 0.3 Neutrophils % 67.3 Lymphocytes % 20.9 Monocytes % 5.1 Eosinophils % 6.1 Basophils % 0.3 Nucleated RBC % 0 Absolute Neutrophils 7.37 H Absolute Lymphocytes 2.29 Absolute Monocytes 0.56 Absolute Eosinophils 0.67 Absolute Basophils 0.03 Sodium 139 Potassium 4.2 Chloride 104 Carbon Dioxide 29.8 Anion Gap 5.2 BUN 22 H D Creatinine 0.5 L Estimated GFR/1.73 m2 >= 60.00 Glucose 88 Calcium 8.9 Total Bilirubin 0.1 L AST 21 ALT 16 Alkaline Phosphatase 107 C-Reactive Protein 5.05 H Total Protein 7.1 Albumin 1.8 L Prealbumin 7 L
[2021-11-19 15:31] VITALS: BP 117/74; PULSE 92; RESP 18; TEMP 37; O2SAT 94
[2021-11-19] MEDS: Gabapentin 300 MG CAP PO (22:21)
[2021-11-19 23:47] VITALS: BP 106/66; PULSE 96; RESP 14; TEMP 36.6; O2SAT 96
[2021-11-20] MEDS: AZTREONAM 2,000 MG in Normal Saline 100 ML 200 MG IVPB ×3 (01:14→17:26)
[2021-11-20] MEDS: hydrOXYzine PAMOATE 25 MG CAP PO ×2 (04:09→11:45)
[2021-11-20] MEDS: LORazepam 0.5 MG TAB PO ×3 (04:10→17:25)
[2021-11-20 04:15] VITALS: PULSE 89; O2SAT 96
[2021-11-20 07:45] VITALS: BP 108/76; PULSE 87; RESP 16; TEMP 36.9; O2SAT 95
[2021-11-20] MEDS: Buprenorphine/Naloxone 2 mg/0.5 mg FILM 1 EACH SL (08:36)
[2021-11-20] MEDS: Buprenorphine/Naloxone 8 mg/2 mg FILM 2 EACH SL (08:36)
[2021-11-20] MEDS: Zinc Sulfate 220 MG TAB PO (08:37)
[2021-11-20] MEDS: Ascorbic Acid 500 MG TAB PO ×2 (08:37→19:58)
[2021-11-20] MEDS: Famotidine 20 MG TAB PO ×2 (08:37→19:58)
[2021-11-20] MEDS: INDOMETHACIN 50 MG CAP PO ×3 (08:37→19:58)
[2021-11-20] MEDS: Gabapentin 100 MG CAP 200 MG PO ×2 (08:37→14:17)
[2021-11-20] MEDS: methIMAzole 5 MG TAB PO (08:37)
[2021-11-20] MEDS: Cyanocobalamin 500 MCG TAB 1000 MCG PO (08:38)
--- NOTE | 2021-11-20 09:52 | PT.INTREAT ---
Date of service: 11/20/21 Time of Service: 09:52 PT Notes Visit Reasons: Dry,Gangrene RLE Physical Therapy Inpatient Treatment Note Date: 11/20/2021 SUBJECTIVE: Agreeable to PT session. Reports pain on her R foot but is willing to participate in therapy. Excited about the trial of the 4WW this morning. Remains fearful and anxious about putting weight through the R LE. OBJECTIVE: PAIN: Reports pain on the R leg and foot at 4-5/10 at rest TRANSFERS: Rolling: Independent Supine to sit: Independent Sit to supine: Independent Sit to stand: Independent with 4WW Stand to sit: Independent with 4WW Bed to chair: Supervision with 4WW GAIT Device: FWW from room to therapy room and 4WW through the big hallway loop twice Weight bearing: Anxious about putting any weight through R LE Assist: Supervision Distance: 550 feet Deviation: Complains of increased pain in the right LE in the dependent position but was more confident about using the 4WW she is able to rest her right knee on the seat while she walks. ASSESSMENT: Will coordinate with nurse in order to premedicate for pain to maximize weight bearing on the right LE in the next sessions. DISCHARGE RECOMMENDATIONS: [] Home with no services [] [X] Home with services. Patient will benefit from home health PT services in order to progress mobility level using least restrictive assistive ambulatory device, assess home safety, identify additional equipment needs, and establish a functional maintenance program that will increase ability of patient to remain at home. [] Home with outpatient PT [] [] SNF for continued rehabilitation [] [] Assisted Care [] [] SNF versus LTC based on ability to participate and progress [] Treatment time: [id number] x 32 minutes beginning at 9:52 AM.
[2021-11-20] MEDS: Enoxaparin 40 MG/0.4 ML SYR SC (09:53)
[2021-11-20] MEDS: Normal Saline Flush 10 ML SYR IVP ×3 (09:54→19:58)
--- NOTE | 2021-11-20 13:22 | PGE_ITS ---
Date of Service Date of service: 11/20/21 Time of Service: 13:23 Assessment and Plan Assessment and plan (1) Stage III pressure ulcer of right ankle: Status: Acute Assessment and plan: -Continue antibiotics for 10 days of therapy and then discontinue -Probiotics for 30 days -DVT prophylaxis -Pulmonary toilet -Nutritional supplementation-patient has been noncompliant. Check albumin Friday -Patient currently has a wound VAC for dressing -Physical therapy -Orthopedic consultation greatly appreciated. -Continue medical management of hyperthyroidism. Recheck TSH Friday -plan skin-Substitute graftng 11/27. Will place wound vac. Pt will need to have continuous wound care/dressing changes for 6-12 months. Possible orthopedic Intervention - see consult notes. -medical noncompliance w/ nutrition adn PT. pt is high risk for further infections or osteo/loss of motor/sensory function, anesthesia and limb loss, as well is disfigurement. arrangements have been made for allograft. 90 minuetes spent coordinating care today (2) Wound infection: Status: Acute (3) Hyperthyroidism: Status: Chronic (4) Hypoalbuminemia due to protein-calorie malnutrition: Status: Acute Subjective Subjective Interval history since last seen: Wound VAC change was done by nursing at bedside yesterday. Dr. Butcher did observe the wound. There is some nice beefy granulation tissue present and the infection appears to be clearing. Certainly no signs of it spreading. Patient's last bowel movement was Friday. She is not having any diarrhea from the antibiotics. Patient is refusing to take in her nutritional protein shakes. She is refusing to participate in therapy. Dr. Dumont attempted to put her in a splint for her joint issue. She could no t tolerate this. Patient had significant pain with her last VAC change and did not do well. We will attempt to do VAC cahnge with nerve block on Friday. Exam Narrative Exam Narrative: Pt is doing well. no headaches. No CP or SOB. no productive cough. no dysuria. no leg pain or swelling. Wound is dressed today and I did not visualize Objective Last Vital Signs Temp 36.9 C 11/20/21 07:45 Pulse 87 11/20/21 07:45 Resp 16 11/20/21 07:45 BP 108/76 11/20/21 07:45 Pulse Ox 95 11/20/21 07:45 Laboratory Results - last 24 hr 11/15/21 13:52 Stool Calprotectin 352 H
--- NOTE | 2021-11-20 13:22 | PT.INTREAT ---
PT Notes Visit Reasons: Dry,Gangrene RLE 11/20/2021 SUBJECTIVE: Does like using the 4WW when walking so she can rest her R knee on the seat. Continues to note aching and burning through the right foot. OBJECTIVE: TRANSFERS Sit to stand: I Stand to sit: I GAIT Device: FWW Weight bearing: AT R Assist: S Distance: 300' Deviation: Pt attempts to place R foot on the floor although after 3 steps notes it is too painful. ASSESSMENT: Pt appears to be in better spirits today and participating in PT appropriately. We will continue to progress touch down to partial weight bearing as pt tolerates. PLAN: As above. Treatment time: 15 minutes [id number] Nieves Olivarez PTA Clinic location: [facility] [place], [place]
--- NOTE | 2021-11-20 14:34 | PDOC.CMPRO ---
- If Service Date Differs Date of service: 11/20/21 Time of Service: 14:34 Care Management Progress Note S/O: Nicol was sitting up in her bed when CM met with her. She reported that she is having a hard time being in the hospital for a prolonged stay. She stated that she has been communicating with her family via facetime, but she is missing her children. CM offered Nicol additional activity items, including a coloring book, colored pencils, and a word search book, which she was happy about. Per MD, she remains acute at this time. CM will continue to follow. A: 36 year old female admitted to [facility] on 11/13/21 for Dry, Gangrene RLE. P: Nicol will require IV abx and ongoing wound care for gangrenous wound(s) on her right ankle. Nicol will transition to SWB1 status when medically ready, until Surgery feels the area is able to accept a skin graft.
--- NOTE | 2021-11-20 15:17 | W.PM.PROGNOT ---
Date of Service Date of service: 11/20/21 Time of Service: 15:17 Assessment and Plan Assessment and plan (1) Wound infection: Status: Acute Assessment and plan: Primary wound infection versus pyoderma gangrenosum versus secondary vasculitis/thrombotic complications COVID-19. Wound culture grew E. coli group B strep. Biopsy results are pending. She is status post 2 washouts debridement procedures. There is no evidence of osteomyelitis on MRI scan. Patient currently has granulation tissue at the base of the wound. She remains on aztreonam. She is going to need prolonged hospital stay for continued wound care and antibiotics. I anticipate she will need to complete total of 4 weeks antbiotics but wound healing will take longer. (2) Dry gangrene: Status: Acute Assessment and plan: as above (3) Hyperthyroidism: Status: Chronic Assessment and plan: patient w/ thyroid nodule likely hyperactive nodule given herhigh free T4 and very low TSH (undetectable levels). TSI is pending. She can not have radioiodine scan of her thyroid as she had recent contrast studies. Patient was started on methimazole [address] Kelley's discussion with endocrinology. Patient is intolerant of beta-blockers due to hypotension. Patient will need to come off her methimazole for a week prior to having the radioiodine uptake scan thyroid nodule. Thyroid nodule is hot and she will need to remain on methimazole indefinitely or have radiation ablation of her hyperactive nodule. We will plan to get a free T4 and total T3 repeated in 2 weeks. (4) Hypoalbuminemia due to protein-calorie malnutrition: Status: Acute Assessment and plan: continue protein/calorie supplementation as above. Suspect chronic malnutrition due to anorexia. consider psychiatric consultation. (5) Open ankle wound: Status: Acute Assessment and plan: as above (6) Narcotic abuse in remission: Assessment and plan: chronically on suboxone replacement. I have put her on Indocin along w/ gabapentin for pain control. I will increase her gabapentin dose. Continue indocin w/ PPI for GI protection (7) Smoker unmotivated to quit: Status: Chronic Assessment and plan: on nicotine replacement while hospitalized. will continue on discharge and encourage her to quit smoking to improve her chances for wound healing Subjective Subjective Interval history since last seen: Nicol still has significant pain in her right ankle/lower leg however it is improving. she tolerated ambulation for P.T. She was seen sitting up at the bedside doing a crossword puzzle w/ a friend. Exam Narrative Exam Narrative: Patient has good DP pulse and sensation in the right foot. There is pitting edema in her foot. I discussed w/ the wound care nurse about treatment of the foot edema. He feels that putting an Binta boot or compression wraps would likely either disrupt the wound vaccuum or lead to ulceration of the skin distal to the wound Objective Last Vital Signs Temp 36.9 C 11/20/21 07:45 Pulse 87 11/20/21 07:45 Resp 16 11/20/21 07:45 BP 108/76 11/20/21 07:45 Pulse Ox 95 11/20/21 07:45
[2021-11-20 15:20] VITALS: BP 97/66; PULSE 83; RESP 18; TEMP 36.6; O2SAT 96
[2021-11-20] MEDS: IRON SUCROSE COMPLEX 200 MG in Normal Saline 100 ML 400 MG IVPB (16:03)
[2021-11-20] MEDS: Acetaminophen 325 MG TAB 650 MG PO (19:58)
[2021-11-20 20:00] VITALS: RESP 16; O2SAT 96
[2021-11-20] MEDS: Gabapentin 400 MG CAP PO (21:56)
[2021-11-20 22:59] VITALS: BP 97/65; PULSE 82; RESP 18; TEMP 36.7; O2SAT 97
--- NOTE | 2021-11-21 | DI.RAD_ITS ---
Exam(s) XR FOOT LT COMPLETE EXAM: XR FOOT LT COMPLETE CLINICAL HISTORY: puncture wound under 2nd MT. TECHNIQUE: 2D digital imaging was performed. COMPARISON: No exams were available for comparison FINDINGS: BONES: No acute fracture is present. No bony destructive lesion is seen. JOINTS: No dislocation present. SOFT TISSUE: No radiopaque foreign body. Gauze overlying the lateral aspect of the foot. IMPRESSION: Unremarkable radiographs of the left foot. DATA REPOSITORY: RADIATION DOSE DELIVERED:
[2021-11-21] MEDS: AZTREONAM 2,000 MG in Normal Saline 100 ML 200 MG IVPB ×3 (01:32→17:25)
[2021-11-21 07:14] VITALS: BP 98/61; PULSE 77; RESP 16; TEMP 36.4; O2SAT 96
[2021-11-21] MEDS: LORazepam 0.5 MG TAB PO ×2 (07:19→15:12)
[2021-11-21] MEDS: Ascorbic Acid 500 MG TAB PO ×2 (08:05→19:24)
[2021-11-21] MEDS: Buprenorphine/Naloxone 2 mg/0.5 mg FILM 1 EACH SL (08:05)
[2021-11-21] MEDS: Zinc Sulfate 220 MG TAB PO (08:05)
[2021-11-21] MEDS: Buprenorphine/Naloxone 8 mg/2 mg FILM 2 EACH SL (08:05)
[2021-11-21] MEDS: INDOMETHACIN 50 MG CAP PO ×3 (08:06→19:24)
[2021-11-21] MEDS: Gabapentin 300 MG CAP PO (08:06)
[2021-11-21] MEDS: methIMAzole 5 MG TAB PO (08:06)
[2021-11-21] MEDS: Famotidine 20 MG TAB PO ×2 (08:06→19:23)
[2021-11-21] MEDS: Cyanocobalamin 500 MCG TAB 1000 MCG PO (08:06)
[2021-11-21] MEDS: Protein Nutritional Supplement 16 GM 1 OUNCE PACKET PO ×2 (08:18→19:24)
[2021-11-21] MEDS: Enoxaparin 40 MG/0.4 ML SYR SC (10:27)
--- NOTE | 2021-11-21 12:36 | W.PM.PROGNOT ---
Date of Service Date of service: 11/21/21 Time of Service: 10:30 Assessment and Plan Assessment and plan (1) Stage III pressure ulcer of right ankle: Status: Acute Assessment and plan: continue antibiotic treatment w/ Aztreonam for E. coli and Gp B Strep. continue wound vacuum. Dr. Richey is planning for skin graft to be done on November 27. Continue off loading of left foot. encourage her to elevated foot above level of her chest to reduce edema. I have increased her gabapentin, continue indocin for inflammation and pain. monitor inflammatory markers; watch renal fxn while on indocin. She still requires acute hospitalization. Once the skin graft is in place she then will need rehab as she has been immobile. (2) Open ankle wound: Status: Acute Assessment and plan: as above (3) Puncture wound of left foot: Status: Acute Assessment and plan: no purulent discharge from wound. She has serosanguinous drainage. I will check xray of her foot to see if any evidence of foreign body or evidence for osteomyelitis Subjective Subjective Interval history since last seen: Patient still w/ considerable amount of pain. Her wound vaccuum change took a prolonged time d/t her pain. Anesthesia is suppose to see her to perform a nerve block. Exam Narrative Exam Narrative: Young cachectic appearing female sitting up in bed. alert/oriented; she does not seem to be in any distress right leg/foot examined. wound vacuum currently is applied so I did not see the underlying wound. the margins around the wound are intact. the dressing over the wound does not appear to be overly saturated. foot is warm and no cyanosis. normal DP pulse. Edema in right foot has improved. left foot has a puncture wound under the 2nd metatarsal. Objective Last Vital Signs Temp 36.4 C L 11/21/21 07:14 Pulse 77 11/21/21 07:14 Resp 16 11/21/21 07:14 BP 98/61 L 11/21/21 07:14 Pulse Ox 96 11/21/21 07:14
--- NOTE | 2021-11-21 13:00 | PT.INNT ---
Date of service: 11/21/21 PT Notes Visit Reasons: Dry,Gangrene RLE Attempted to see patient twice this morning but she was unavailable during the first try and is in significant pain during the second try. Will retry to approach patient in the afternoon and request premedication for pain from Nurse.
--- NOTE | 2021-11-21 14:10 | CMPROGNOTE_ITS ---
- If Service Date Differs Date of service: 11/21/21 Time of Service: 14:10 Care Management Progress Note S/O: Nicol was sitting up in bed when CM met with her. She reported that she is doing ok, and her foot is still painful. She stated that it is hard for her to be in the hospital, away from her kids. CM reviewed her plan, which is to remain on IV antibiotics until after her skin grafting procedure, which may be as early as next Friday. She will likely require halfway abx after the procedure, and will transition to SWB 1 once she is medically cleared by MD. CM will continue to follow. A: 36 year old female admitted to [facility] on 11/13/21 for Dry, Gangrene RLE. P: Nicol will require IV abx and ongoing wound care for gangrenous wound(s) on her right ankle. Nicol will transition to SWB1 status when medically ready, until Surgery feels the area is able to accept a skin graft.
[2021-11-21] MEDS: Gabapentin 400 MG CAP PO (14:24)
--- NOTE | 2021-11-21 15:06 | PTTR_ITS ---
PT Notes Visit Reasons: Dry,Gangrene RLE Physical Therapy Inpatient Treatment Note Date: 11/21/2021 SUBJECTIVE: Agreeable to PT session.? Reports pain on her R foot but is willing to participate in therapy. OBJECTIVE: TRANSFERS: Rolling: Independent Supine to sit: Independent Sit to supine: Independent Sit to stand: Independent with 4WW Stand to sit: Independent with 4WW GAIT Device: FWW from room to therapy room and 4WW through the big hallway loop twice Weight bearing: Pt tolerated light WB of RLE, toe touch, during ambulation Assist: Supervision Distance: 2x150 feet THEREX seated: LAQ: 2x20 Marching RLE: 2x20 Toe raises + DF: 2x20 Toe curls: 2x20 DF stretch in sitting position: 1x1min? DISCHARGE RECOMMENDATIONS: [] ? Home with no services [] [X] ? Home with services.? Patient will benefit from home health PT services in order to progress mobility level using least restrictive assistive ambulatory device, assess home safety, identify additional equipment needs, and establish a functional maintenance program that will increase ability of patient to remain at home. [] ? Home with outpatient PT [] [] ? SNF for continued rehabilitation [] [] ? Family Living [facility] [] [] ? SNF versus LTC based on ability to participate and progress [] Treatment time: 57879 x 15 minutes and [id number] x 20 beginning at 1:45 PM.
--- NOTE | 2021-11-21 15:16 | W.PM.PROGNOT ---
Date of Service Date of service: 11/21/21 Time of Service: 14:00 Assessment and Plan Assessment and plan (1) Stage III pressure ulcer of right ankle: Status: Acute Assessment and plan: -Continue antibiotics for 10 days of therapy and then discontinue -Probiotics for 30 days -DVT prophylaxis -Pulmonary toilet -Nutritional supplementation-patient has been noncompliant. Check albumin Friday -Patient currently has a wound VAC for dressing -Physical therapy -Orthopedic consultation greatly appreciated. -Continue medical management of hyperthyroidism. Recheck TSH Friday -plan skin-Substitute graftng 11/27. Will place wound vac. Pt will need to have continuous wound care/dressing changes for 6-12 months. Possible orthopedic Intervention - see consult notes. -medical noncompliance w/ nutrition adn PT. pt is high risk for further infections or osteo/loss of motor/sensory function, anesthesia and limb loss, as well as disfigurement. arrangements have been made for allograft. (2) Wound infection: Status: Acute (3) Hyperthyroidism: Status: Chronic (4) Hypoalbuminemia due to protein-calorie malnutrition: Status: Acute Subjective Subjective Interval history since last seen: Mrs Akhtar is doing OK. She is still not eating much. She tells me she is a very picky eater. Has been ambulating but not placing any weight on her right foot. Exam Resp Effort & Inspection: normal respiratory effort Extrem Other: RLE- wound vac in place. Still not able to completely dorsiflex . Objective Last Vital Signs Temp 97.5 F L 11/21/21 07:14 Pulse 77 11/21/21 07:14 Resp 16 11/21/21 07:14 BP 98/61 L 11/21/21 07:14 Pulse Ox 96 11/21/21 07:14
[2021-11-21 15:35] VITALS: BP 97/62; PULSE 83; RESP 18; TEMP 37; O2SAT 96
[2021-11-21] MEDS: Acetaminophen 325 MG TAB 650 MG PO (19:24)
[2021-11-21 19:30] VITALS: O2SAT 96
[2021-11-21] MEDS: Gabapentin 600 MG TAB PO (22:06)
[2021-11-21 22:56] VITALS: BP 109/74; PULSE 90; RESP 16; TEMP 37; O2SAT 97
--- NOTE | 2021-11-22 | DI.RAD_ITS ---
Exam(s) XR PORTABLE CHEST AP EXAM: XR PORTABLE CHEST AP CLINICAL HISTORY: elevated WBC. TECHNIQUE: 2D digital imaging was performed. COMPARISON: CR,XR XR PORTABLE CHEST AP from 06/24/2021 FINDINGS: Heart size is upper normal. The mediastinum is not widened. There has been some improvement in the left lower lobe infiltrate although there is still increased m arkings at this level. No pleural effusion. There is, however, now nodular infiltrate in the right upper lobe region. This measures approximately 1.7 x 1.5 cm. No pleural effusion. IMPRESSION: New 1.7 x 1.5 cm nodular infiltrate in the right lung. Infectious versus neoplastic.Recommend follow -up CT scan Chronic increased markings and scarring in the left lung base. However, the infiltrate which was pre sent at this location on 06/24/2021 has a somewhat improved. There are no pleural effusions on eithe r side. DATA REPOSITORY: RADIATION DOSE DELIVERED: All CT scans at this facility use at least one of these dose optimization techniques: automated exposure control; mA and/or kV adjustment per patient size (includes targeted e xams where dose is matched to clinical indication); or iterative reconstruction.
[2021-11-22] MEDS: AZTREONAM 2,000 MG in Normal Saline 100 ML 200 MG IVPB ×2 (01:27→10:11)
[2021-11-22 08:17] VITALS: BP 102/78; PULSE 91; RESP 18; TEMP 36.6; O2SAT 99
[2021-11-22] MEDS: Cyanocobalamin 500 MCG TAB 1000 MCG PO (08:36)
[2021-11-22] MEDS: Zinc Sulfate 220 MG TAB PO (08:36)
[2021-11-22] MEDS: methIMAzole 5 MG TAB PO (08:36)
[2021-11-22] MEDS: Gabapentin 400 MG CAP PO ×2 (08:36→21:10)
[2021-11-22] MEDS: Ascorbic Acid 500 MG TAB PO ×2 (08:36→19:16)
[2021-11-22] MEDS: Buprenorphine/Naloxone 2 mg/0.5 mg FILM 1 EACH SL (08:36)
[2021-11-22] MEDS: Famotidine 20 MG TAB PO ×2 (08:36→19:16)
[2021-11-22] MEDS: Buprenorphine/Naloxone 8 mg/2 mg FILM 2 EACH SL (08:36)
[2021-11-22] MEDS: LORazepam 0.5 MG TAB PO (08:45)
--- NOTE | 2021-11-22 09:34 | CHAPLAIN ---
I visited Nicol yesterday (11/21). She was teary about missing her children again. She has been passing the time with TV and a puzzle, but said she is bored. She see her kids through Facetime and has two friends who visit occasionally. Her family members are not vaccinated, so can't visit at this time. Nicol said she would like to get outside. She explained the would vac to me and said her when her bandages are changed on Mondays and Friday, it is very painful for her. One of her friends to be here with her at those times.
[2021-11-22] MEDS: Enoxaparin 40 MG/0.4 ML SYR SC (10:11)
--- NOTE | 2021-11-22 10:54 | W.NUTRFU ---
Date of service: 11/22/21 Time of Service: 10:55 Nutrition Note NOTE: Met with Nicol today with severe protein calorie malnutrition and stage 3 pressure wound on right ankle. Reports usual body weight around 100 lbs. Reviewed recent prealbumin level and need for increase in macronutrients for optimal would healing. She admits to eating very little since July when she became sick with covid and was caring for her grandchildren. She did not have a PCP at the time and did not seek any medical help despite losing weight. Suspect, some level of disordered eating with anorexic tendencies. Reviewed risks of limb loss if unable to increase prealbumin by increasing po intake in next weeks. Discussed option of NG tube and nocturnal tube feeding. Nicol unwilling to consider at this time. Estimated energy needs are: 1350 -1540 kcal/day (35-40 kcal/kg/day for slow weight gain) Estimated protein needs are: 58 g-77 g/day (1.5-2.0 g/kg/day for anabolism) Estimated fluid needs:? 1600 ml/day (1 ml/kcal/day) Nicol is willing to log her protein intake with a goal of 70-80 grams daily. She cannot tolerate the liquid protein, ensure, or the whey fortified CIB. Plan going forward is to provide regular CIB TID providing 200 kcal, 8 g protein each. Nicol willing to eat through out day- turkey stick (9 g protein), PB (4 g protein), eggs (7 g protein), cheese (8 g protein)along with small meals. Provided her with my direct line. At very high nutritional risk in view of poor intake and increased nutrient needs. Will follow and support. Recommend: discontinue liquid protein TID as refusing Time Spent in Nutritional Counseling and Treatment: 15
[2021-11-22 11:32] LABS: HCT 29.8 % (36.0-46.0); HGB 8.8 g/dL (11.2-15.7); MCH 26.2 pg (27.0-33.0); MCHC 29.5 % (32.0-36.0); MCV 88.7 fL (80-95); MPV 9.2 fL (8.0-11.0); Platelet Count 650 10^3/uL (130-400); RBC 3.36 10^6/uL (3.93-5.22); RDW 17.2 % (11.7-14.6); RDW-SD 55.4 fL; WBC 18.78 10^3/uL (4.4-10.8)
--- NOTE | 2021-11-22 11:57 | W.PM.PROGNOT ---
Date of Service Date of service: 11/22/21 Time of Service: 11:57 Assessment and Plan Assessment and plan (1) Stage III pressure ulcer of right ankle: Status: Acute Assessment and plan: I reviewed treatment of Gp B Strep in [place] and aztreonam really does not adequately treat Gp B Strep (not active against gram positives nor against anaerobes). I spoke w/ I.D. at [facility]. He asked what the sensitivities were on the E. coli and then recommended at least 3 weeks of Rocephin 2 gm daily along w/ Flagyl 500 mg q8hr and to continue the treatment for 7 to 10 days after the skin flap. He feels that we can not rely on the aztreonam to cover the Gp B Strep and E. coli since no sensitivities were on against aztreonam. He also feels that some anaerobes are difficult to recover from cultures and therefore the Flagyl should be continued. Therefore her completion date of antibiotics will be December 14. I have reduced her gabapentin dose to reduce her risk of hypersomnolence. Anesthesia is suppose to see her regarding a nerve block to help w/ pain control (2) Open ankle wound: Status: Acute Assessment and plan: as above (3) Puncture wound of left foot: Status: Acute Assessment and plan: no purulent discharge from wound. She has serosanguinous drainage. Xray of her left foot showed no radiographic abnormalities Subjective Subjective Interval history since last seen: Patient had a rough night last night did not sleep all night long because of pain in her right leg. Apparently the wound vacuum failed. I spoke with Neil the patient's nurse and wound care nurse. Client indicated that there is a large clot in the foam of the wound vacuum and that they need to clean out the wound and change the wound vacuum but they are going to need anesthesia to do a nerve block in order to get adequate pain control. He feels that the wound VAC he needs to be changed 3 times a week. When I went into the room the patient was very sedated and lying across the bed with her legs hanging over the edge of the bed. I assisted her back into bed and put pillows underneath her legs. Ordinarily she would have been in extreme anxiety and pain with this but she hardly responding other than some moaning. Exam Narrative Exam Narrative: Thin cachectic female lying across the bed with her hair in her face and her mouth wide open. Did not witness any apneic spells but she was very sedated. Lungs are clear to auscultation heart is regular rate and rhythm abdomen is soft scaphoid nontender both feet have pedal edema and her legs were hanging over the side of the bed. I gently assisted her back to bed propping her legs and feet up on a pillows and propped her head up on her pillows with the head of her bed at 30 degrees. I then went to her nurse Neil and discussed the events of last night and told him that I am going to reduce the dosage on her gabapentin. Objective Last Vital Signs Temp 36.6 C 11/22/21 08:17 Pulse 91 H 11/22/21 08:17 Resp 18 11/22/21 08:17 BP 102/78 11/22/21 08:17 Pulse Ox 99 11/22/21 08:17
--- NOTE | 2021-11-22 13:05 | W.ANESPRE ---
General Info Date of Service Date Performed: 11/22/21 Height: 4 ft 11.84 in Weight: 38.55 kg Body Mass Index (BMI): 16.7 Surgical Procedure: Operation Date: 11/13/21 17:10 Proposed Procedure Side Surgeon p Debridement Foot/Leg Susana Richey, DO Actual Procedure Side Surgeon p Irrigation & Debridement of Ankle/Foot Wound Right Susana Richey, Pre-Op Diagnosis Post-Op Diagnosis WOUND OF RIGHT ANKLE/FOOT WOUND OF RIGHT ANKLE/FOOT Operation Date: 11/15/21 12:10 Proposed Procedure Side Surgeon p Washout, possible Debridement, Dressing Change Susana Richey, DO Actual Procedure Side Surgeon p IRRIGATION & DEBRIDEMENT OF FOOT WOUND WITH DRESSING CHANGE Right Susana Richey DO Pre-Op Diagnosis Post-Op Diagnosis RIGHT ANKLE/FOOT WOUND debridement RIGHT ANKLE/FOOT WOUND debridement Operation Date: 11/27/21 08:40 Proposed Procedure Side Surgeon p Skin Graft Susana Richey, Meds Allergies and Home Medications Allergies Allergy/AdvReac Type Severity Reaction Status Date / Time Penicillins Allergy Unknown Hives Verified 11/13/21 14:49 Home Medication Medication Instructions Recorded levonorgestrel 20 mcg/24 hours (7 1 unit IU DAILY 08/22/15 yrs) 52 mg intrauterine device (Mirena) ferrous gluconate 324 mg (38 mg 324 mg PO DAILY 11/13/21 iron) tablet propranolol 20 mg tablet 20 mg PO BID 11/13/21 buprenorphine 2 mg-naloxone 0.5 mg 1 film SUBLINGUAL DAILY 11/14/21 sublingual film (Suboxone) buprenorphine 8 mg-naloxone 2 mg 2 film SUBLINGUAL DAILY 11/14/21 sublingual film (Suboxone) Current Visit Medications: Current Medications Generic Name Dose Route Start Last Admin Trade Name Freq PRN Reason Stop Dose Admin Acetaminophen 650 mg 11/14/21 14:02 11/21/21 19:24 Acetaminophen 325 Mg Tab PO 650 mg Q6H PRN PRN Administration Albuterol Sulfate 2.5 mg 11/13/21 15:30 Albuterol 2.5 Mg/3 Ml Inh Soln Vial UPD Q4H PRN PRN Ascorbic Acid 500 mg 11/13/21 20:00 11/22/21 08:36 Ascorbic Acid 500 Mg Tab PO 500 mg BID HANSA Administration Buprenorphine/Naloxone 2 each 11/15/21 08:30 11/22/21 08:36 Buprenorphine/Naloxone 8 Mg/2 Mg Film SL 2 each DAILY HANSA Administration Buprenorphine/Naloxone 1 each 11/15/21 08:30 11/22/21 08:36 Buprenorphine/Naloxone 2 Mg/0.5 Mg Film SL 1 each DAILY HANSA Administration Cyanocobalamin 1,000 mcg 11/15/21 08:30 11/22/21 08:36 Cyanocobalamin 500 Mcg Tab PO 1,000 mcg DAILY HANSA Administration Enoxaparin Sodium 40 mg 11/14/21 10:00 11/22/21 10:11 Enoxaparin 40 Mg/0.4 Ml Syr SC 40 mg Q24H HANSA Administration Famotidine 20 mg 11/18/21 20:00 11/22/21 08:36 Famotidine 20 Mg Tab PO 20 mg BID HANSA Administration Gabapentin 200 mg 11/22/21 14:00 Gabapentin 100 Mg Cap PO BID@0830,1400 [facility] Gabapentin 400 mg 11/22/21 22:00 Gabapentin 400 Mg Cap PO HS [facility] Hydroxyzine Pamoate 25 mg 11/13/21 18:21 11/20/21 11:45 Hydroxyzine Pamoate 25 Mg Cap PO 25 mg TID PRN PRN Administration Sodium Chloride 500 mls @ 0 mls/hr 11/13/21 15:30 11/17/21 03:03 Saline 500ml Bag IV 0 mls/hr PRN PRN Infusion As Directed Aztreonam 2,000 mg/ Sodium 100 mls @ 200 mls/hr 11/15/21 18:00 11/22/21 10:11 Chloride IVPB 200 mls/hr Q8H HANSA Administration IV Miscellaneous Supplies 1 each 11/13/21 15:30 Iv Access IV DIRECTED [facility] Lactobacillus Acidophilus/Casei 1 cap 11/14/21 08:30 11/22/21 08:36 L. Acidophilus, Casei, Rhamnosus Cap PO 1 cap DAILY HANSA Administration Lidocaine HCl 50 ml 11/16/21 16:00 11/19/21 14:57 Lidocaine 4% Topical Solution 50 Ml Btl MM 3 ml DIRECTED HANSA Administration Lorazepam 0.5 mg 11/17/21 17:24 11/22/21 08:45 Lorazepam 0.5 Mg Tab PO 0.5 mg TID PRN PRN Administration Lorazepam 1 mg 11/19/21 10:30 11/19/21 12:48 Lorazepam 2 Mg/Ml Vial IVP 1 mg MOFR@1030 HANSA Administration Metaxalone 800 mg 11/13/21 16:46 11/22/21 08:45 Metaxalone 800 Mg Tab PO 800 mg QID PRN PRN Administration Methimazole 5 mg 11/16/21 08:30 11/22/21 08:36 Methimazole 5 Mg Tab PO 5 mg DAILY HANSA Administration Multi-Ingredient Supplement 1 ounce 11/13/21 20:00 11/22/21 08:34 Protein Nutritional Supplement 16 Gm 1 Ounce Packet PO Not Given TID HANSA Nicotine 1 cartridge 11/13/21 18:21 11/18/21 13:12 Nicotine 10 Mg/Cartridge 30 Cart/Pkg IH 1 cartridge Q2H PRN PRN Administration Ondansetron HCl 4 mg 11/13/21 16:43 Ondansetron 4 Mg/2 Ml Vial IVP Q4H PRN PRN Polyethylene Glycol 17 gm 11/13/21 17:07 Polyethylene Glycol 3350 17 Gm Packet PO DAILY PRN PRN Sodium Chloride 0 ml 11/13/21 15:30 11/20/21 19:58 Normal Saline Flush 10 Ml Syr IVP 10 ml PRN PRN Administration Tramadol HCl 150 mg 11/19/21 10:45 11/19/21 12:25 Tramadol 50 Mg Tab PO 150 mg MOFR@1000 HANSA Administration Zinc Sulfate 220 mg 11/14/21 08:30 11/22/21 08:36 Zinc Sulfate 220 Mg Tab PO 220 mg DAILY HANSA Administration PFSH Active Problems Active Problems: Problem Status Onset Code Puncture wound of left foot S91.332A Stage III pressure ulcer of right ankle L89.513 Wound infection T14.8XXA, L08.9 Dry gangrene I96 Hyperthyroidism E05.90 Hypokalemia due to loss of potassium E87.6 Hypoalbuminemia due to protein-calorie malnutrition E88.09, E46 Open ankle wound S91.009A Smoker unmotivated to quit F17.200 Asthma J45.909 Medical History Medical History (Updated 11/21/21 @ 14:13 by Solo Goff) Narcotic abuse in remission Tachycardia Surgical History Surgical History (Updated 11/13/21 @ 10:15 by Jazzy Celaya DO) History of adenoidectomy S/p bilateral myringotomy with tube placement Tobacco Smoking/Tobacco Use Status: Current every day Tobacco Type: cigarettes Smoking cigarettes per day: 10 Alcohol Alcohol Intake: never Substance Use Substance use: Current Sobriety Substance use type: former substance user Vital Signs and Lab Results Vital Signs Most Recent Vital Signs in EMR: Most Recent Vital Signs Temp Pulse Resp BP Pulse Ox 36.6 C 91 H 18 102/78 99 11/22/21 08:17 11/22/21 08:17 11/22/21 08:17 11/22/21 08:17 11/22/21 08:17 Point of Care Results Point of Care Results: POC- Test(urine) Negative 11/13/21 11:13 Lab Results Result Diagrams: 11/22/21 11:20 11/19/21 06:30 Blood Type / Crossmatch: No Data to Display Complete Blood Count: White Blood Count 18.78 10^3/uL (4.4-10.8) H 11/22/21 11:20 11/22/21 Red Blood Count 3.36 10^6/uL (3.93-5.22) L 11/22/21 11:20 11/22/21 Hemoglobin 8.8 g/dL (11.2-15.7) L 11/22/21 11:20 11/22/21 Hematocrit 29.8 % (36.0-46.0) L 11/22/21 11:20 11/22/21 Platelet Count 650 10^3/uL (130-400) H 11/22/21 11:20 11/22/21 Venous Blood Lactate 1.6 mmol/L (0.6-1.4) H 11/13/21 10:10 11/13/21 Complete Metabolic Panel: Sodium Level 139 mmol/L (136-145) 11/19/21 06:30 11/19/21 Potassium Level 4.2 mmol/L (3.5-5.1) 11/19/21 06:30 11/19/21 Chloride Level 104 mmol/L (98-107) 11/19/21 06:30 11/19/21 Carbon Dioxide Level 29.8 mmol/L (21.0-32.0) 11/19/21 06:30 11/19/21 Blood Urea Nitrogen 22 mg/dL (7-18) H 11/19/21 06:30 11/19/21 Creatinine 0.5 mg/dL (0.55-1.02) L 11/19/21 06:30 11/19/21 Estimated GFR/1.73 m2 >= 60.00 (mL/min/1.73m2) 11/19/21 06:30 11/19/21 Magnesium Level 2.0 mg/dL (1.8-2.4) 11/17/21 06:02 11/17/21 Calcium Level 8.9 mg/dL (8.5-10.1) 11/19/21 06:30 11/19/21 Albumin 1.8 g/dL (3.4-5.0) L 11/19/21 06:30 11/19/21 Glucose Level 88 mg/dL (74-106) 11/19/21 06:30 11/19/21 Hemoglobin A1c 5.1 % (<5.7) 11/13/21 10:10 11/13/21 C-Reactive Protein 5.05 mg/dL (0.0-0.3) H 11/19/21 06:30 11/19/21 Liver Function Panel: Alanine Aminotransferase (ALT/SGPT) 16 U/L (14-59) 11/19/21 06:30 11/19/21 Aspartate Amino Transf (AST/SGOT) 21 U/L (15-37) 11/19/21 06:30 11/19/21 Gamma Glutamyl Transpeptidase 34 U/L (5-55) 11/13/21 14:25 11/13/21 Coagulation Panel: No Data to Display Cardiac Panel: No Data to Display Arterial Blood Gas: No Data to Display Venous Blood Gas: No Data to Display Pancreas Panel: No Data to Display Thyroid Panel: Thyroid Stimulating Hormone (TSH) < 0.01 uIU/mL (0.36-3.74) L 11/14/21 06:35 11/14/21 Total Triiodothyronine 166 ng/dL (97-169) 11/14/21 06:35 11/14/21 Infectious Disease: Coronavirus (COVID-19)(PCR) Negative (Negative) 11/13/21 13:12 11/13/21 Coronavirus 2019 Source NASAL 11/13/21 13:12 11/13/21 HIV (1&2) Ag and Ab, 4th Generation Negative (Negative) 11/14/21 06:35 11/14/21 Hepatitis B Surface Antigen Negative (Negative) 11/14/21 06:35 11/14/21 Hepatitis C Antibody Negative (Negative) 11/14/21 06:35 11/14/21 Blood Cultures: No Data to Display Toxicology Panel: Urine Amphetamines Screen Negative (Negative) 11/13/21 13:47 11/13/21 Urine Benzodiazepines Screen Negative (Negative) 11/13/21 13:47 11/13/21 Urine Barbiturates Screen Negative (Negative) 11/13/21 13:47 11/13/21 Urine Cocaine Screen Negative (Negative) 11/13/21 13:47 11/13/21 Urine Methadone Screen Negative (Negative) 11/13/21 13:47 11/13/21 Urine Opiates Screen Negative (Negative) 11/13/21 13:47 11/13/21 Ur Tricyclic Antidepressants Screen Negative (Negative) 11/13/21 13:47 11/13/21 Ur Tetrahydrocannabinol (THC) Scrn Negative (Negative) 11/13/21 13:47 11/13/21 Panel: No Data to Display Anesthesia Assessment and Plan Anesthesia History Personal History: No History of Anesthesia Complications and Other (states took a very long time 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) Family History: No Family History of Anesthesia Complications Exercise Tolerance Exercise Tolerance: Metabolic Equivalents>4 Pertinent Negatives Pertinent Negatives: No Symptoms of GERD and No History of CVA/TIA Cardiac & Pulmonary Exam Cardiac Exam: Normal S1/S2 Heart Sounds Pulmonary Exam: Clear Bilateral Breath Sounds Implantable Cardiac Device Does patient have a Pacemaker or an ICD?: No Airway Exam Known Difficult Airway: No Mallampati Class: 2 Mouth Opening: Normal (> 3cm) Thyromental Distance: Greater than 3 cm Neck Range of Motion: Full ROM Neck Circumference: Normal Teeth Condition: Generalized Poor Dentition and Loose or Chipped Airway Comments: most teeth are chipped, many missing, denies loose. ASA Classification ASA Score: ASA 3 Emergency Case?: No NPO Status NPO Status: NPO Clears >2 hours, Solids >8 hours Status Status: Negative HCG Anesthesia Plan Resuscitation Status: Full Code Anesthesia Technique: Primary Nerve Block Airway Planned: Natural Airway Pain Management: Surgeon and patient request nerve block Monitors Used: Standard Monitors Preoperative Comments:: 36 yo female with infected right ankle. Sig PMHx: Asthma (unclear as to how much albuterol she actually takes), COVID x 2 - states that he breathing is much worse post covid, tachycardia (takes propranolol twice daily), past substance abuse on suboxone last 18 mg dose yesterday. Extremely anxious. crying. Unclear as how she wants to proceed. risks, benefits, and alternatives (where appropriate) discussed spinal vs general. She has substantial hesitation in regards to general, but also very scared of spinal and her legs not working after. We discussed these options at length with the ultimate plan as spinal with GA back up or if the changes her mind.
--- NOTE | 2021-11-22 13:09 | PDOC.CMPRO ---
- If Service Date Differs Date of service: 11/22/21 Time of Service: 13:09 Care Management Progress Note S/O: Nicol will transition to SWB1 once she is medically cleared by MD, no change to overall plan at this time. CM to discuss visitation policy with administration as both MD and Surgeon are requesting Nicol have visits with her children once she transitions to swing bed. CM will continue to follow. A: 36 year old female admitted to [facility] on 11/13/21 for Dry, Gangrene RLE. P: Nicol will require IV abx and ongoing wound care for gangrenous wound(s) on her right ankle. Nicol will transition to SWB1 status when medically ready, until Surgery feels the area is able to accept a skin graft.
[2021-11-22 13:44] VITALS: BMI 16.7
[2021-11-22 14:00] VITALS: BP 104/70; PULSE 88; RESP 16; TEMP 37.1; O2SAT 97
[2021-11-22 14:05] VITALS: BP 102/68; PULSE 96; RESP 16; TEMP 37.3; O2SAT 98
[2021-11-22 14:20] VITALS: BP 110/74; PULSE 100; RESP 20; TEMP 37.3; O2SAT 98
--- NOTE | 2021-11-22 14:34 | W.ANESNERVE ---
Nerve Block Single Injection Procedure Date and Time Date Performed: 11/22/21 Procedure Start: 13:50 Location Where Procedure Performed Procedure Location: Med/Surg Reason Performed: Acute Pain Management Pain Diagnosis: Lower leg Pain, Ankle Pain and Foot Pain Requesting Provider: Susana Richey Timeout Performed Timeout Performed: Yes Monitoring Used Blood Pressure, SpO2, ETCO2 and See EMR for corresponding vital signs Sterility Sterility: Hand Hygiene, Surgical Cap, Surgical Mask, Sterile Gloves, Eye Protection and Chlorhexidine Sedation Given During Procedure Sedation Given (Indicate Dose Given): Versed IV Dose:: 2 mg Patient Mental Status Patient Mental Status: Sedate with meaningful communication Nerve Block 1st Nerve Block: Laterality: Right Block Type: Adductor Canal Needle / Catheter Used: 100mm SonoPlex II Local Anesthetic Bolus (Indicate Dose Given): Lidocaine used for local infiltration of skin, Injected in 3-5ml increments after negative blood aspiration, Bupivacaine 0.5% Dose:: 10 ml and Exparel Dose:: 10 ml Additives (Indicate Dose Given): None Ultrasound: Sterile probe cover and gel used Ultrasound Image Saved?: Yes Nerve Stimulator: Not Used Paresthesia: None Procedure Tolerated: No Complications and Patient tolerated well Procedure Outcome: Successful Performed By: Ray Moreira 2nd Nerve Block: Laterality: Right Block Type: Popliteal Sciatic Needle / Catheter Used: 100mm SonoPlex II Local Anesthetic Bolus (Indicate Dose Given): Lidocaine used for local infiltration of skin, Injected in 3-5ml increments after negative blood aspiration, Bupivacaine 0.5% Dose:: 10 ml and Exparel Dose:: 10 ml Additives (Indicate Dose Given): Normal Saline Ultrasound: Sterile probe cover and gel used Ultrasound Image Saved?: Yes Nerve Stimulator: Not Used Paresthesia: None Procedure Tolerated: No Complications and Patient tolerated well Procedure Outcome: Successful Performed By: Ray Moreira
[2021-11-22 14:35] VITALS: BP 110/74; PULSE 91; RESP 16; TEMP 37.3; O2SAT 99
[2021-11-22 15:05] VITALS: BP 116/78; PULSE 106; RESP 16; TEMP 37.5; O2SAT 96
--- NOTE | 2021-11-22 15:05 | WOUNDCONS ---
- If Service Date Differs Date of service: 11/22/21 Time of Service: 15:05 Wound Initial Evaluation Narrative: 36 yof . with a right ankle injury. NPWT started intermittently started leaking overnight, and failed this morning despite several attempts to reinforce. Anesthesia was able to do a nerve block on the extremity, allowing us to perform the dressing change. After cleaning, we were able to get accurate measurements and good pictures, prior to changing the dressing. patient tolerated the procedure well. - Wound Right Lateral Ankle Wound Type: Pressure Ulcer Pressure Ulcer Stage: III Wound General Appearance: Reddened, Draining, Bleeding, Unapproximated, Tendon Visible Wound Bed Greatest Portion: Red (Granulation) Wound Bed Lesser Portion: Black (Eschar) Wound Surrounding Tissue Appearance: Normal/Healthy Percent of Wound Bed Granulated/Red: 99 Percent of Wound Bed Eschar/Black: 1 Wound Length: 13 cm Wound Width: 9.2 cm Wound Depth: 1.1 cm Wound Drainage Amount: Large Wound Drainage Odor: None/Absent Wound Drainage Description: Bloody Wound Topical Solution/Irrigant: Saline Irrigant Wound Debridement Method: Gauze Wound Debridement Result: Healthy Tissue Revealed Wound Debridement Amount of Tissue Removed: Moderate Right Medial Ankle Wound Type: Pressure Ulcer Pressure Ulcer Stage: III Wound General Appearance: Draining, Bleeding, Unapproximated, Tendon Visible Wound Bed Greatest Portion: Red (Granulation) Wound Bed Lesser Portion: Black (Eschar) Wound Surrounding Tissue Appearance: Normal/Healthy Percent of Wound Bed Granulated/Red: 99 Percent of Wound Bed Eschar/Black: 1 Wound Length: 9.8 cm Wound Width: 8.9 cm Wound Depth: 0.6 cm Wound Drainage Amount: Large Wound Drainage Odor: None/Absent Wound Drainage Description: Bloody Wound Topical Solution/Irrigant: Saline Irrigant Wound Debridement Method: Gauze Wound Debridement Result: Healthy Tissue Revealed - Circulation, Sensation, Motion Edema Degree: 4+ - Photo Photo:
[2021-11-22] MEDS: Gabapentin 100 MG CAP 200 MG PO (15:55)
--- NOTE | 2021-11-22 16:28 | W.PM.PROGNOT ---
Date of Service Date of service: 11/22/21 Time of Service: 16:28 Assessment and Plan Assessment and plan (1) Puncture wound of left foot: Status: Acute (2) Stage III pressure ulcer of right ankle: Status: Acute (3) Hyperthyroidism: Status: Chronic (4) Hypoalbuminemia due to protein-calorie malnutrition: Status: Acute (5) Smoker unmotivated to quit: Status: Chronic (6) Asthma: Status: Chronic Assessment and plan: -I discussed with inpatient the importance of nutritional support and taking her protein supplements. Patient has been refusing her supplements. We discussed the importance of building up her protein in order to make the graft application successful. I think it would be worthwhile to try some Megace to see if we can stimulate her appetite. -Patient is starting to experience loss of mobility due to scarring down of her tendons. We discussed the importance of ambulation to prevent further muscle deterioration in tendon damage as well as for DVT prevention. -I discussed with her the upcoming surgery for allografting. We discussed importance of compliance with nursing recommendations and eating and walking. We discussed what she could expect during the procedure post procedurally recovery time and risks which are mainly anesthesia. -We discussed the concept of multimodality pain control. And the importance of following a pain regimen and taking all the prescribed medications. She has problems with anxiety. I think starting some low-dose Cymbalta would help with both anxiety and pain control. Patient said she is willing to try it the medication. I did discuss with pharmacy starting the medication and potential interactions with the Skelaxin. We will stop the Skelaxin and change to Flexeril. -She has a TSH pending Friday -She was able to tolerate the wound VAC dressing today. Her wound actually looks really good and is starting to develop some granulation tissue. -She does have a 18,000 white count today. Etiology is undetermined at this time. She is on ceftriaxone and and Flagyl currently. Her UA did show blood. Her chest x-ray did show some infiltrates versus neoplasm. A chest CT was recommended. This was ordered for a in a.m. patient does have extensive history of smoking as well as asthma. Surgery is tentatively planned for next unless there has been significant interval change in her condition 90 minutes is spent in direct patient care and coordinating her care. Subjective Subjective Interval history since last seen: Patient was seen during her dressing change. Anesthesia did do a block today and gave her some Versed. The Versed seemed to help significantly. Wound measurements and pictures are on the chart. She is getting some nice granulation tissue. There does not appear to be any gross signs infection at this point. She has a chronic cough from smoking. She denies any dysuria. She denies any calf pain or swelling. There is minimal swelling in her foot. She also has a wound on the bottom of her left foot that is 1 x 0.5 x 0.2 cm that is clean dry and intact. She said it is from stepping on a foreign body. They did an x-ray and it was negative. I did probe the wound and there does not appear to be any foreign bodies within it. It does not look to be grossly infected. Patient continues to struggle with pain and with depression. She also notes that she does not like a lot of foods but also has very minimal appetite. Reviewed labs today as well. L: CTA b/l C: NSR No thrush. no janidice. No dental or sinus pain. Extremities show no edema or calf pain or swelling. -See nursing notes for wound description Objective Last Vital Signs Temp 37.5 C 11/22/21 15:05 Pulse 106 H 11/22/21 15:05 Resp 16 11/22/21 15:05 BP 116/78 11/22/21 15:05 Pulse Ox 96 11/22/21 15:05 Laboratory Results - last 24 hr 11/22/21 11:20 WBC 18.78 H RBC 3.36 L Hgb 8.8 L Hct 29.8 L MCV 88.7 MCH 26.2 L MCHC 29.5 L RDW 17.2 H Plt Count 650 H MPV 9.2
--- NOTE | 2021-11-22 16:37 | NT_ITS ---
Date of service: 11/22/21 Time of Service: 16:37 PT Notes Visit Reasons: Dry,Gangrene RLE Hold per Nurses Neil and Andria until new wound vacuum is in place. Patient has been having high anxiety over wound vacuum change due to significant pain report. Will plan on seeing patient tomorrow morning for continued mobility prgression. Thank you for the opportunity to participate in the care of this patient. Funmi Castañeda PT, DPT, CLT [facility] [place], [place]
[2021-11-22] MEDS: Normal Saline Flush 10 ML SYR IVP (17:15)
--- NOTE | 2021-11-22 17:15 | W.ANESPOSTOP ---
Postoperative Evaluation Date, Time and Location Date Performed: 11/22/21 Time Performed: 17:02 Patient Location: Med/Surg Vital Signs Most Recent Imported Vital Signs: Most Recent Vital Signs Temp Pulse Resp BP Pulse Ox 37.5 C 106 H 16 116/78 96 11/22/21 15:05 11/22/21 15:05 11/22/21 15:05 11/22/21 15:05 11/22/21 15:05 Most Recent Vital Signs Temp Pulse Resp BP Pulse Ox 37.6 C H 121 H 19 97/58 L 98 11/15/21 15:23 11/15/21 15:23 11/15/21 15:23 11/15/21 15:23 11/15/21 15:23 Most Recent Vital Signs Temp Pulse Resp BP Pulse Ox 36.2 C L 94 H 24 93/42 L 98 11/13/21 16:49 11/13/21 16:49 11/13/21 16:49 11/13/21 16:49 11/13/21 16:49 Pain Score Most Recent Pain Score: Most Recent Pain Score Pain Level 9 11/22/21 08:45 Assessment Mental Status: Awake (Alert & Oriented to Patient Baseline) Airway and Respiratory Function: Patent airway with normal (patient baseline) respiratory exam Cardiovascular Function: Hemodynamically Stable Hydration Status: Adequately Hydrated Nausea & Vomiting: No Nausea or Vomiting Pain: Pain is tolerable per patient (Reports leg almost fully numb. Happy with current pain control. ) Peripheral Nerve Block: Regional nerve block not resolved at time of post operative discharge
[2021-11-22] MEDS: cefTRIAXone 2 GM/50 ML BAG IVPB (17:16)
[2021-11-22] MEDS: IRON SUCROSE COMPLEX 200 MG in Normal Saline 100 ML 400 MG IVPB (18:14)
[2021-11-22] MEDS: metroNIDAZOLE 500 MG/100 ML BAG 100 MG IVPB (19:04)
[2021-11-22] MEDS: Protein Nutritional Supplement 16 GM 1 OUNCE PACKET PO (19:21)
[2021-11-22 19:48] LABS: Bilirubin Negative (Negative); Blood Large (Negative); Clarity Sl Cloudy (Clear); Glucose Negative (Negative); Ketones Negative (Negative); Leukocyte Esterase Negative (Negative); Nitrite Negative (Negative); Specific Gravity 1.025 (1.005-1.025); Urobilinogen 0.2 EU/dL (Up TO 0.2)
[2021-11-22 20:07] LABS: Bacteria Negative HPF (Negative); C & S Indicated? Yes; Casts Negative LPF (Negative); Crystals Negative HPF (Negative); Epithelial Cells Negative HPF (Negative); Mucus Negative (Negative); Other Cells Negative (Negative); RBC >50 HPF (0-2)
[2021-11-23 00:22] VITALS: BP 95/64; PULSE 95; RESP 18; TEMP 36.9; O2SAT 98
[2021-11-23] MEDS: metroNIDAZOLE 500 MG/100 ML BAG 100 MG IVPB ×3 (02:51→17:32)
[2021-11-23] MEDS: Normal Saline Flush 10 ML SYR IVP (02:52)
[2021-11-23] MEDS: hydrOXYzine PAMOATE 25 MG CAP PO (04:43)
[2021-11-23] MEDS: LORazepam 0.5 MG TAB PO ×3 (04:43→23:21)
[2021-11-23 07:20] VITALS: BP 108/73; PULSE 100; RESP 18; TEMP 37.1; O2SAT 95
[2021-11-23 07:33] LABS: C-Reactive Protein 11.42 mg/dL (0.0-0.3)
[2021-11-23 07:47] LABS: TSH (W/Ref FT4) < 0.01 uIU/mL (0.36-3.74)
[2021-11-23 07:55] LABS: D-Dimer 599 ng/mlFEU (<500)
--- NOTE | 2021-11-23 08:00 | DI.CT_ITS ---
Exam(s) CT CHEST W EXAM: CT CHEST W CLINICAL HISTORY: abnl CXR infiltratevsneoplasm RUL/elevated WBC. TECHNIQUE: Multi planar reconstructions were performed. CONTRAST MATERIAL: Omnipaque 350; 100 cc COMPARISON: CR CHEST 2 VIEWS PA,LAT from 03/15/2012 CR XR PORTABLE CHEST AP from 11/22/2021 FINDINGS: CHEST: Recent chest x-ray 11/22/2021 was reviewed LUNGS: There is indeed a spiculated concerning infiltrate in the posterior segment of the right upper lobe correspond to finding on the portable chest x-ray and measuring 2.7 cm wide by 1.7 cm AP by 1.6 cm craniocaudal. Suspicious for malignancy although possibility of this being infectious etiology i s also consideration. Also in the right lung the small nodular density laterally in the right middle lobe and some mild infiltrate medially in the right middle lobe. Also a spiculated infiltrates also evident in the medial aspect of the posterior basal segment of the right lower lobe, largest of thes e measuring 1.3 x 1.1 cm, also require close follow-up. No pleural effusion. In the opposite-left lung there is decreased hemithoracic volume which is probably post surgical. Th ere are confluent bullae in the upper lobe region but without true abscess. No empyema. Also large confluent bulla in the left lung base noted measuring 6.8 cm by 2.4 cm. No fluid therein. No eviden ce of true empyema. No significant findings in the trachea and mainstem bronchi. MEDIASTINUM: Small lymph nodes in the right hilum noted. Small lymph nodes in left hilum also noted. There is increased density probably adenopathy in the subcarinal region. Thyroid gland is abnormal with the right lobe being enlarged and containing large dominant nodule. CARDIAC: Heart size is normal. There is no pericardial effusion.Caliber of the thoracic aorta is wit hin normal limits. VISUALIZED UPPER ABDOMEN:There are no significant adrenal masses. Small subcapsular cyst or hemangio ma anterior aspect 6 millimeters. OSSEOUS: No significant osseous lesions.. IMPRESSION: 1. In the posterior segment of the right upper lobe there is a spiculated infiltrate measuring 27 x 1 7 x 16 millimeters, corresponding to what is described on the recent portable chest x-ray and suspici ous for malignancy although the possibility of this being infectious infiltrate cannot be excluded. This require close follow-up to rule out malignancy. In the posterior basal segment of the right low er lobe there are smaller spiculated nodular infiltrates also noted, the largest measuring 13 x 11 mi llimeters. No pleural effusions. 2. Left lung decrease hemithoracic volume, probably related to thoracotomy. Large confluent bullae n oted both superior inferiorly but no evidence of true empyema. 3. Small lymph nodes as described above. RADIATION DOSE DELIVERED: 283.33mGy.cm Total DLP DATA REPOSITORY: All CT scans at this facility are submitted to the National Radiology Data Registry (NRDR) Dose Index Registry (DIR) with the [employer] (ACR). RADIATION OPTIMIZATION: All CT scans at this facility use at least one of these dose optimization te chniques: automated exposure control; mA and/or kV adjustment per patient size (includes targeted exa ms where dose is matched to clinical indication); or iterative reconstruction.
[2021-11-23 08:03] LABS: FREE T4 0.97 ng/dL (0.76-1.46)
[2021-11-23 08:09] LABS: Procalcitonin 0.2 ng/mL
[2021-11-23 08:20] LABS: Albumin 1.7 g/dL (3.4-5.0)
[2021-11-23] MEDS: Ascorbic Acid 500 MG TAB PO ×2 (08:56→21:33)
[2021-11-23] MEDS: DULoxetine 20 MG CAP PO (08:56)
[2021-11-23] MEDS: methIMAzole 5 MG TAB PO (08:56)
[2021-11-23] MEDS: Famotidine 20 MG TAB PO ×2 (08:56→21:34)
[2021-11-23] MEDS: Gabapentin 100 MG CAP 200 MG PO ×2 (08:56→15:47)
[2021-11-23] MEDS: Zinc Sulfate 220 MG TAB PO (08:57)
[2021-11-23] MEDS: Cyanocobalamin 500 MCG TAB 1000 MCG PO (08:57)
[2021-11-23] MEDS: Buprenorphine/Naloxone 2 mg/0.5 mg FILM 1 EACH SL (08:58)
[2021-11-23] MEDS: Buprenorphine/Naloxone 8 mg/2 mg FILM 2 EACH SL (08:58)
--- NOTE | 2021-11-23 10:13 | PT.INNT ---
PT Notes Visit Reasons: Dry,Gangrene RLE When entering the room pt was crying. Pt reports that she is not doing well this am. She states that she knows that she needs to walk but can't this am and she will this after noon for us.
[2021-11-23] MEDS: Normal Saline 500 ML 30 ML IV (10:16)
[2021-11-23] MEDS: Enoxaparin 40 MG/0.4 ML SYR SC (10:17)
--- NOTE | 2021-11-23 10:50 | PDOC.CMPRO ---
- If Service Date Differs Date of service: 11/23/21 Time of Service: 10:50 Care Management Progress Note S/O: Nicol was sleeping when CM met with her. Per report, her surgery is postponed until late next week. Her WBC is elevated today, and she continues to receive IV antibiotics. She is followed closely by nutrition, as she is being encouraged to increase her protein intake. CM will continue to follow. A: 36 year old female admitted to [facility] on 11/13/21 for Dry, Gangrene RLE. P: Nicol will require IV abx and ongoing wound care for gangrenous wound(s) on her right ankle. Nicol will transition to SWB1 status when medically ready, until Surgery feels the area is able to accept a skin graft.
[2021-11-23 14:43] VITALS: BP 121/80; PULSE 100; RESP 18; TEMP 36.6; O2SAT 91
--- NOTE | 2021-11-23 15:44 | PT.INPN ---
Date of service: 11/23/21 Time of Service: 15:44 PT Notes Visit Reasons: Dry,Gangrene RLE Physical Therapy Inpatient Progress Note Date: 11/23/2021 Dates of service: 11/14/2021 through 11/23/2021 Precautions: Fall. Standard. WBAT on B LE with AD. Subjective: Agreeable to PT sessions. Is to report of pain in the right ankle and foot that prevents her from putting weight on it during ambulation activity. Objective: General Observation: Emotionally labile.? Cachexic.? IV in the L UE. Wound dressing to right foot and ankle. Wound vacuum in place. Mental Status: Alert and oriented as to person, place, time, and purpose. Able to pay attention, focus, and respond appropriately. Pain: 6-7/10 with ambulation activity ROM: Right Upper Extremity: ? Shoulder Flexion WFL. Shoulder abduction WFL. Elbow flexion WFL. Wrist flexion WFL. Functional opening and closing of hand WFL. Left Upper Extremity:? Shoulder Flexion WFL. Shoulder abduction WFL. Elbow flexion WFL. Wrist flexion WFL. Functional opening and closing of hand WFL. Right Lower Extremity: Hip flexion WFL. Hip abduction WFL. Knee flexion WFL. Ankle dorsiflexion less than 5 degrees. Ankle plantarflexion less than 5 degrees. Full flexion WFL. Full extension WFL. Left Lower Extremity:? Hip flexion WFL. Hip abduction WFL. Knee flexion WFL. Ankle dorsiflexion WFL. Ankle plantarflexion WFL. Strength: Right Upper Extremity: Shoulder flexors 4-/5. Shoulder abductors 4-/5. Elbow flexors 4-/5. Elbow extensors 4-/5. Planishing Hammer Operator strong. Left Upper Extremity: Shoulder flexors 4-/5. Shoulder abductors 4-/5. Elbow flexors 4-/5. Elbow extensors 4-/5. Planishing Hammer Operator strong. Right Lower Extremity: Hip flexors 4-/5. Hip abductors 4-/5. Knee flexors 4-/5. Knee extensors 4-/5. Ankle dorsiflexors 1/5. Ankle plantarflexors 1/5. Toe flexion 4/5. Toe extension 4/5. Left Lower Extremity: Hip flexors 4-/5. Hip abductors 4-/5. Knee flexors 4-/5. Knee extensors 4-/5. Ankle dorsiflexors NT. Ankle plantarflexors NT. Bed Mobility/Transfers: Supine to sit with stand by assist with HOB 30 degrees Sit to stand with contact-guard assist Stand to sit with contact-guard assist Bed to reclining chair with contact-guard assist Gait: Able to tolerate level surface ambulation of up to 300 feet x 2 pain report of up to 9/10 pain on the right foot precluding weight bearing on said foot. Uses 4 wheeled walker. Only needs standby assist. Minimal cues provided for timely use of wheelchair brakes before standing up sitting down. THERA EX: Continued to reinforce R LE range of motion exercises to minimize contracture formation and facilitate granulation tissue formation. Balance: Static Sitting: Normal Dynamic Sitting: Normal Static Standing: Fair Dynamic Standing: Fair Special Tests: Mobility Limitations Standardized Measure [facility] AM-PAC 6 clicks Basic Mobility Inpatient Short Form: Raw Score: 23 CMS Score: 11% deficit? ? ? Informed Consent/Education:? Patient was instructed in purpose of PT consult and plan of care. Agreeable to proceed with established PT POC to achieve personal goals. Assessment: Nicol demonstrates functional mobility decline requiring the use of 4WW for all transfer and ambulation due to limited weight bearing on the R LE.? Pain level primarily limits mobility performance and therefore pre-medication for pain is paramount for session participation. Deficit score decreased from 36% at start of care to just 23% as of today. Emphasized with patient the importance of regular range of motion activities to the R ankle, foot and toes to avoid contracture formation that can impair pattern and safety of walking. Patient presents with clinical signs and symptoms consistent with current/admitting diagnoses that have resulted to mobility limitations, gait instability, generalized weakness, and overall ADL decline as demonstrated by the following impairment level findings: 1.? Decreased strength to B ankle major muscle groups 2.? Impaired standing balance 3.? Impaired activity tolerance 4.? Limitation of joint range of motion in R ankle 5.? Pain in R ankle at rest and with movement 6.? Swelling in R foot and toes Impairments are contributing to the following functional limitations: 1.? Decline in bed mobility skills 2.? Decline in transfer skills 3.? Difficulty with ambulation without assistive device and physical assistance 4.? Increased completion time for mobility ADL performance 5.? Increased risk for falls 6.? Difficulty with managing steps alone safely Patient is assessed as a 13678 moderate complexity based on the following: History: 36-year-old femalewith past medical history as indicated above Examination: Demonstrable impairment in strength, balance, and mobility level with underlying impairments and functional limitations as exhibited above as well as deficit score of 36% utilizing the [facility] Mobility Inpatient Short Form Presentation:? Evolving Decision Makin moderate complexity Goals: Goals X1 week 1. Supine-Sit independent MET 2. Sit-Supine independent MET 3. Sit-Stand independent MET 4. Stand-Sit independent with FWW MET 5. Bed-Chair independent with FWW MET 6. Chair-Bed independent with FWW MET 7. Independent gait on level surface with use of FWW for at least 500 feet without report of pain nor dyspnea NOT MET 8. Independent stair negotiation while holding onto no rails for at least 6 steps without report of pain nor dyspnea NOT MET 9. Independent with home exercise program NOT MET 10. Good static and dynamic standing balance/tolerance NOT MET Plan of Care/Treatment Plan: 1-2x/day, 7 days/week x 1 week. Plan of care has been reviewed with the SLAT BASKET MAKER HELPER MACHINE providing the service under Physical Therapy direction. Initiate Physical Therapy intervention for pain management as needed, strengthening, bed mobility, transfers, gait, stairs, balance training, and use of assistive device. DISCHARGE RECOMMENDATIONS: [] ? Home with no services [] [] ? Home with services [specify] [X] ? Home with outpatient PT. Patient will benefit from outpatient PT services in order to progress mobility level using least restrictive assistive ambulatory device while progressing mobility level to PLOF that will increase ability of patient to remain at home. [] ? SNF for continued rehabilitation [] [] ? Wire Rigger Care [] [] ? SNF versus LTC based on ability to participate and progress [] TREATMENT CODE/TIME: Session 1??84620 x 24 minutes beginning at 11:44 AM. Session 2??[id number] x 15 minutes, 94723 x 18 minutes beginning at 15:44 PM. Thank you for the opportunity to participate in the care of this patient. Funmi Castañeda PT, DPT, CLT [facility] [place], [place]
[2021-11-23] MEDS: Protein Nutritional Supplement 16 GM 1 OUNCE PACKET PO ×2 (15:46→21:33)
[2021-11-23] MEDS: cefTRIAXone 2 GM/50 ML BAG IVPB (15:47)
--- NOTE | 2021-11-23 16:27 | PGE_ITS ---
Date of Service Date of service: 11/23/21 Time of Service: 16:27 Assessment and Plan Assessment and plan (1) Wound infection: Status: Acute Assessment and plan: continue Rocephin 2 gm iv daily along w/ flagyl 500 mg iv q8hr for 3 weeks (through 12/14). Patient scheduled for xenograft for next (11/29/21). patient needs good nutritional support and is currently receiving protein supplementation (2) Puncture wound of left foot: Status: Acute Assessment and plan: continue Mepilex. xray did not show any foreign body (3) Hypoalbuminemia due to protein-calorie malnutrition: Status: Acute Assessment and plan: continue high protein diet, zinc and MVS supplements (4) Depression: Status: Chronic Assessment and plan: Cymbalta added for pain control as well as for depression. (5) Lung mass: Status: Acute Assessment and plan: CT demonstrated: IMPRESSION: 1. In the posterior segment of the right upper lobe there is a spiculated infiltrate measuring 27 x 17 x 16 millimeters, corresponding to what is described on the recent portable chest x-ray and suspicious for malignancy although the possibility of this being infectious infiltrate cannot be excluded.? This require close follow-up to rule out malignancy.? In the posterior basal segment of the right lower lobe there are smaller spiculated nodular infiltrates also noted, the largest measuring 13 x 11 millimeters.? No pleural effusions. 2. Left lung decrease hemithoracic volume, probably related to thoracotomy.? Large confluent bullae noted both superior inferiorly but no evidence of true empyema. 3. Small lymph nodes as described above I suggest pulmonary consult w/ Dr. Chao (6) Narcotic abuse in remission: Assessment and plan: on high dose suboxone therapy. I had cut her gabapentin dose down yesterday d/t excessive sleepiness but I think that this was combination of just having her suboxone and she was medicated w/ Ativan and the gabapentin. I have dc the a.m. dose and raised her 1400 dose and her HS dose. (7) Hyperthyroidism: Status: Chronic Assessment and plan: Too soon to recheck TSH, I would wait 4 to 6 weeks at least before rechecking her TSH. Recheck her FT4/T3 in 2 weeks (2 weeks from start of her methimazole which was 11/15. I would repeat her levels at the end of next week, i.e. 3/ or 3/. (8) DVT prophylaxis: Status: Acute Assessment and plan: cont. enoxaparin 40 mg SC daily (9) Discharge planning issues: Status: Acute Assessment and plan: patient currently requires acute inpatient hospitalization while her wound is being actively treated and she is on iv antibiotics and she requires daily physician visits. Subjective Subjective Interval history since last seen: Patient continues to complain of lot of pain. She is tearful, sitting up in bed. Pain is in the right leg.I have adjusted her gabapentin dose to increase her nightly dose to 600 mg nightly and dc her a.m. dose (d/t too much sedation along w/ her suboxone) but resumed and afternoon dose at 1400 for 300 mg. She is no longer on indocin. Exam Narrative Exam Narrative: Tearful, sitting up at the bedside Right foot w/ slight edema but she has not been propping up on her pillow. foot is warm, normal dp pulse. Objective Last Vital Signs Temp 36.6 C 11/23/21 14:43 Pulse 100 H 11/23/21 14:43 Resp 18 11/23/21 14:43 BP 121/80 11/23/21 14:43 Pulse Ox 91 L 11/23/21 14:43 Laboratory Results - last 24 hr 11/22/21 11/22/21 11/23/21 19:00 Unknown 06:45 D-Dimer C-Reactive Protein Albumin Procalcitonin TSH < 0.01 L Free T4 0.97 Urine Color Yellow Urine Clarity Sl Cloudy Urine pH 7.0 Ur Specific [place] 1.025 Urine Protein Trace H Urine Ketones Negative Urine Blood Large H Urine Nitrite Negative Urine Bilirubin Negative Urine Urobilinogen 0.2 Ur Leukocyte Esterase Negative Urine RBC >50 H Urine WBC 5-10 Ur Epithelial Cells Negative Urine Crystals Negative Urine Bacteria Negative Urine Casts Negative Urine Mucus Negative Urine Other Negative Ur Culture Indicated? Yes Urine Glucose Negative Add-On Test Request TNP Patient ABO/Rh Antibody Screen 11/23/21 11/23/21 11/23/21 06:45 06:45 06:45 D-Dimer 599 H C-Reactive Protein Albumin 1.7 L Procalcitonin TSH Free T4 Urine Color Urine Clarity Urine pH Ur Specific [place] Urine Protein Urine Ketones Urine Blood Urine Nitrite Urine Bilirubin Urine Urobilinogen Ur Leukocyte Esterase Urine RBC Urine WBC Ur Epithelial Cells Urine Crystals Urine Bacteria Urine Casts Urine Mucus Urine Other Ur Culture Indicated? Urine Glucose Add-On Test Request Patient ABO/Rh O Negative Antibody Screen NEGATIVE 11/23/21 11/23/21 06:45 06:45 D-Dimer C-Reactive Protein 11.42 H Albumin Procalcitonin 0.2 TSH Free T4 Urine Color Urine Clarity Urine pH Ur Specific [place] Urine Protein Urine Ketones Urine Blood Urine Nitrite Urine Bilirubin Urine Urobilinogen Ur Leukocyte Esterase Urine RBC Urine WBC Ur Epithelial Cells Urine Crystals Urine Bacteria Urine Casts Urine Mucus Urine Other Ur Culture Indicated? Urine Glucose Add-On Test Request Patient ABO/Rh Antibody Screen
[2021-11-23] MEDS: Gabapentin 300 MG CAP 600 MG PO (21:34)
[2021-11-24] MEDS: metroNIDAZOLE 500 MG/100 ML BAG 100 MG IVPB ×3 (01:21→18:25)
[2021-11-24] MEDS: Normal Saline Flush 10 ML SYR IVP ×4 (01:22→18:25)
[2021-11-24] MEDS: Acetaminophen 325 MG TAB 650 MG PO ×2 (06:48→13:47)
[2021-11-24 07:03] VITALS: BP 104/66; PULSE 96; RESP 16; TEMP 36.7; O2SAT 98
[2021-11-24 08:29] LABS: Abs Immature Grans 0.04 10^3/uL (0.0-0.06); Absolute Basophil Count 0.06 10^3/uL (0.0-0.2); Absolute Eosinophil Count 0.48 10^3/uL (0.0-0.7); Absolute Lymphocyte Count 2.33 10^3/uL (1.2-3.4); Absolute Neutrophil Count 6.27 10^3/uL (1.2-6.7); Basophils % 0.6; Eosinophils % 4.9; HCT 30.5 % (36.0-46.0); HGB 9.2 g/dL (11.2-15.7); Immature Grans % 0.4; Lymphocytes % 23.8; MCH 26.5 pg (27.0-33.0); MCHC 30.2 % (32.0-36.0); MCV 87.9 fL (80-95); MPV 9.2 fL (8.0-11.0); Monocytes % 6.1; Neutrophils % 64.2; Nucleated RBC 0 %; Platelet Count 745 10^3/uL (130-400); RBC 3.47 10^6/uL (3.93-5.22); RDW-SD 57.1 fL; WBC 9.78 10^3/uL (4.4-10.8)
[2021-11-24 08:47] LABS: ALT 12 U/L (14-59); AST 17 U/L (15-37); Albumin 1.8 g/dL (3.4-5.0); Alkaline Phosphatase 86 U/L (46-116); Anion Gap 7.3 mmol/L (3-11); BUN 11 mg/dL (7-18); Bilirubin, Total 0.1 mg/dL (0.2-1.0); CO2 28.7 mmol/L (21.0-32.0); CREATININE 0.5 mg/dL (0.55-1.02); Calcium 9.1 mg/dL (8.5-10.1); Chloride 105 mmol/L (98-107); Glucose 91 mg/dL (74-106); Potassium 3.6 mmol/L (3.5-5.1); Sodium 141 mmol/L (136-145); Total Protein 7.7 g/dL (6.4-8.2)
[2021-11-24] MEDS: methIMAzole 5 MG TAB PO (08:48)
[2021-11-24] MEDS: Cyanocobalamin 500 MCG TAB 1000 MCG PO (08:50)
[2021-11-24] MEDS: Zinc Sulfate 220 MG TAB PO (08:50)
[2021-11-24] MEDS: Ascorbic Acid 500 MG TAB PO ×2 (08:50→20:28)
[2021-11-24] MEDS: DULoxetine 20 MG CAP PO (08:50)
[2021-11-24] MEDS: LORazepam 0.5 MG TAB PO ×2 (08:50→15:26)
[2021-11-24] MEDS: Famotidine 20 MG TAB PO ×2 (08:50→20:28)
[2021-11-24] MEDS: Buprenorphine/Naloxone 2 mg/0.5 mg FILM 1 EACH SL (08:51)
[2021-11-24] MEDS: Buprenorphine/Naloxone 8 mg/2 mg FILM 2 EACH SL (08:51)
[2021-11-24] MEDS: Enoxaparin 40 MG/0.4 ML SYR SC (10:21)
[2021-11-24] MEDS: Normal Saline 500 ML 30 ML IV (10:22)
--- NOTE | 2021-11-24 10:29 | PT.INTREAT ---
PT Notes Visit Reasons: Dry,Gangrene RLE Inpatient Physical Therapy Treatment Note [facility] Date: 11/24/21 PRECAUTIONS: Activity as kim SUBJECTIVE: Pt reports that she is still experiencing a lot of discomfort and would really like to be able to put weaight on the LE and walk normal. She feel discouraged with her progress. OBJECTIVE: Supine-sit: SBA Sit-supine: SBA Sit-stand: SBA Stand-sit: SBA GAIT Assistive Device: 4WW Weight bearing: WBAT R LE Assist: SBA Distance: 150ft THEREX: Pt completed LE strengthening ther ex as per flow sheet. ASSESSMENT: Pt tolerated today's session failry well. Pt gets emotional during her session due to what she feels is lack of progression and has difficulty putting weight throught the involved LE. PLAN: Cont as per PT POC. TREATMENT CODE/TIME: 9:25-9:45 (20) TA
[2021-11-24] MEDS: Celecoxib 100 MG CAP PO ×2 (11:11→20:27)
--- NOTE | 2021-11-24 12:23 | W.PM.PROGNOT ---
Date of Service Date of service: 11/24/21 Time of Service: 12:23 Assessment and Plan Assessment and plan (1) Stage III pressure ulcer of right ankle: Status: Acute Assessment and plan: -Continue IV Rocephin/Flagyl to optimize wound bed for grafting next week, do not think she would be a candidate for a flap given lack of healthy tissue -Encourage increase in protein supplements, appetite stimulant added -Multimodal pain control as written, appears comfortable today -Patient will need follow up for new spiculated lung mass and TIRADS 4 thyroid nodule -Active participation in PT discussed with patient to decrease risk of contracture, especially with exposed tendons -Continue supportive care, patient seemed to be in more positive mood today (2) Puncture wound of left foot: Status: Acute (3) Hyperthyroidism: Status: Chronic (4) Hypoalbuminemia due to protein-calorie malnutrition: Status: Acute (5) Smoker unmotivated to quit: Status: Chronic (6) Asthma: Status: Chronic Subjective Subjective Patient reports: no new complaints, feels better and afebrile Exam Const General: comfortable and no acute distress Nutritional Appearance: cachectic Other: Sitting up in bed doing a puzzle on the bedside table Resp Effort & Inspection: normal respiratory effort, no audible wheezes and no respiratory distress Cardio Rate: regular rate Rhythm: regular rhythm Skin Wounds: wounds noted (right ankle, medial and lateral, wound vac in place good seal) Neuro General: patient alert, patient awake and patient oriented x3 Objective Last Vital Signs Temp 98.1 F 11/24/21 07:03 Pulse 96 H 11/24/21 07:03 Resp 16 11/24/21 07:03 BP 104/66 11/24/21 07:03 Pulse Ox 98 11/24/21 07:03 Laboratory Results - last 24 hr 11/24/21 11/24/21 08:00 08:00 WBC 9.78 RBC 3.47 L Hgb 9.2 L Hct 30.5 L MCV 87.9 MCH 26.5 L MCHC 30.2 L RDW 18.0 H Plt Count 745 H MPV 9.2 Immature Gran % 0.4 Neutrophils % 64.2 Lymphocytes % 23.8 Monocytes % 6.1 Eosinophils % 4.9 Basophils % 0.6 Nucleated RBC % 0 Absolute Neutrophils 6.27 Absolute Lymphocytes 2.33 Absolute Monocytes 0.60 Absolute Eosinophils 0.48 Absolute Basophils 0.06 Sodium 141 Potassium 3.6 Chloride 105 Carbon Dioxide 28.7 Anion Gap 7.3 BUN 11 Creatinine 0.5 L Estimated GFR/1.73 m2 >= 60.00 Glucose 91 Calcium 9.1 Total Bilirubin 0.1 L AST 17 ALT 12 L Alkaline Phosphatase 86 Total Protein 7.7 Albumin 1.8 L
--- NOTE | 2021-11-24 12:38 | W.PM.PROGNOT ---
Date of Service Date of service: 11/24/21 Time of Service: 12:39 Assessment and Plan Assessment and plan (1) Wound infection: Status: Acute Assessment and plan: continue Rocephin 2 gm iv daily along w/ flagyl 500 mg iv q8hr for 3 weeks (through 12/14). Patient scheduled for xenograft for next (11/29/21). Cont good nutritional support including protein supplementation (2) Puncture wound of left foot: Status: Acute Assessment and plan: continue Mepilex. xray did not show any foreign body (3) Hypoalbuminemia due to protein-calorie malnutrition: Status: Acute Assessment and plan: continue high protein diet, zinc and MVS supplements (4) Depression: Status: Chronic Assessment and plan: Cymbalta added for pain control as well as for depression. (5) Lung mass: Status: Acute Assessment and plan: CT demonstrated: IMPRESSION: 1. In the posterior segment of the right upper lobe there is a spiculated infiltrate measuring 27 x 17 x 16 millimeters, corresponding to what is described on the recent portable chest x-ray and suspicious for malignancy although the possibility of this being infectious infiltrate cannot be excluded.? This require close follow-up to rule out malignancy.? In the posterior basal segment of the right lower lobe there are smaller spiculated nodular infiltrates also noted, the largest measuring 13 x 11 millimeters.? No pleural effusions. 2. Left lung decrease hemithoracic volume, probably related to thoracotomy.? Large confluent bullae noted both superior inferiorly but no evidence of true empyema. 3. Small lymph nodes as described above I suggest pulmonary consult w/ Dr. Chao (6) Narcotic abuse in remission: Assessment and plan: Cont on her home high dose suboxone therapy. Her gabapetin dosing schedule has been adjusted during this stay to try to avert excessive sleepiness. dc'd the a.m. dose and raised her 1400 dose and her HS dose. (7) Hyperthyroidism: Status: Chronic Assessment and plan: Plan is to recheck a TSH in 4 to 6 weeks. Recheck her FT4/T3 in 2 weeks (2 weeks from start of her methimazole which was 11/15. (8) DVT prophylaxis: Status: Acute Assessment and plan: cont. enoxaparin 40 mg SC daily (9) Discharge planning issues: Status: Acute Assessment and plan: patient currently requires acute inpatient hospitalization while her wound is being actively treated and she is on iv antibiotics and she requires daily physician visits. Subjective Subjective Patient reports: still having pain (Pain at wound site.), tolerating a regular diet and afebrile; denies nausea, vomiting or shortness of breath Exam Narrative Exam Narrative: Tearful while talking on phone. Sitting upright in bed. Right foot w/ slight edema noted adjacent to bandaged site. Lungs clear. CV RRR Neuro: JULIEN. Normal cognition. Psych: A&O x 3. Affect is sad. Objective Last Vital Signs Temp 36.7 C 11/24/21 07:03 Pulse 96 H 11/24/21 07:03 Resp 16 11/24/21 07:03 BP 104/66 11/24/21 07:03 Pulse Ox 98 11/24/21 07:03 Laboratory Results - last 24 hr 11/24/21 11/24/21 08:00 08:00 WBC 9.78 RBC 3.47 L Hgb 9.2 L Hct 30.5 L MCV 87.9 MCH 26.5 L MCHC 30.2 L RDW 18.0 H Plt Count 745 H MPV 9.2 Immature Gran % 0.4 Neutrophils % 64.2 Lymphocytes % 23.8 Monocytes % 6.1 Eosinophils % 4.9 Basophils % 0.6 Nucleated RBC % 0 Absolute Neutrophils 6.27 Absolute Lymphocytes 2.33 Absolute Monocytes 0.60 Absolute Eosinophils 0.48 Absolute Basophils 0.06 Sodium 141 Potassium 3.6 Chloride 105 Carbon Dioxide 28.7 Anion Gap 7.3 BUN 11 Creatinine 0.5 L Estimated GFR/1.73 m2 >= 60.00 Glucose 91 Calcium 9.1 Total Bilirubin 0.1 L AST 17 ALT 12 L Alkaline Phosphatase 86 Total Protein 7.7 Albumin 1.8 L
[2021-11-24] MEDS: Gabapentin 300 MG CAP PO (13:41)
[2021-11-24] MEDS: cefTRIAXone 2 GM/50 ML BAG IVPB (15:26)
[2021-11-24 15:34] VITALS: BP 98/60; PULSE 97; RESP 18; TEMP 36.5; O2SAT 95
[2021-11-24] MEDS: Gabapentin 300 MG CAP 600 MG PO (20:28)
[2021-11-25] MEDS: metroNIDAZOLE 500 MG/100 ML BAG 100 MG IVPB ×3 (01:12→18:22)
[2021-11-25] MEDS: Normal Saline Flush 10 ML SYR IVP ×4 (01:12→18:22)
[2021-11-25] MEDS: Acetaminophen 325 MG TAB 650 MG PO ×2 (06:20→20:40)
[2021-11-25 07:25] VITALS: BP 93/60; PULSE 83; RESP 20; TEMP 36; O2SAT 100
[2021-11-25] MEDS: Buprenorphine/Naloxone 8 mg/2 mg FILM 2 EACH SL (08:35)
[2021-11-25] MEDS: Celecoxib 100 MG CAP PO ×2 (08:36→20:40)
[2021-11-25] MEDS: Cyanocobalamin 500 MCG TAB 1000 MCG PO (08:36)
[2021-11-25] MEDS: Buprenorphine/Naloxone 2 mg/0.5 mg FILM 1 EACH SL (08:36)
[2021-11-25] MEDS: Zinc Sulfate 220 MG TAB PO (08:36)
[2021-11-25] MEDS: Famotidine 20 MG TAB PO ×2 (08:36→20:39)
[2021-11-25] MEDS: LORazepam 0.5 MG TAB PO ×3 (08:36→20:40)
[2021-11-25] MEDS: Ascorbic Acid 500 MG TAB PO ×2 (08:36→20:40)
[2021-11-25] MEDS: DULoxetine 20 MG CAP PO (08:36)
[2021-11-25] MEDS: methIMAzole 5 MG TAB PO (08:36)
--- NOTE | 2021-11-25 09:35 | W.PM.PROGNOT ---
Date of Service Date of service: 11/25/21 Time of Service: 09:35 Assessment and Plan Assessment and plan (1) Stage III pressure ulcer of right ankle: Status: Acute Assessment and plan: -Continue IV Rocephin/Flagyl to optimize wound bed for grafting next week, do not think she would be a candidate for a flap given lack of healthy tissue and poor nutritional status -Encourage increase in protein supplements, appetite stimulant added. Patient keeping log of PO intake. -Multimodal pain control as written, appears comfortable again today -Patient will need follow up for new spiculated lung mass and TIRADS 4 thyroid nodule -Active participation in PT discussed with patient to decrease risk of contracture, especially with exposed tendons -Continue supportive care, patient seemingly more motivated in actively participating in care (2) Puncture wound of left foot: Status: Acute (3) Hyperthyroidism: Status: Chronic (4) Hypoalbuminemia due to protein-calorie malnutrition: Status: Acute (5) Smoker unmotivated to quit: Status: Chronic (6) Asthma: Status: Chronic Subjective Subjective Patient reports: no new complaints, feels better and afebrile Exam Const General: comfortable and no acute distress Nutritional Appearance: cachectic Other: Sitting up in bed doing a puzzle on the bedside table Resp Effort & Inspection: normal respiratory effort, no audible wheezes and no respiratory distress Cardio Rate: regular rate Rhythm: regular rhythm Skin Wounds: wounds noted (right ankle, medial and lateral, wound vac in place good seal) Neuro General: patient alert, patient awake and patient oriented x3 Objective Last Vital Signs Temp 96.8 F L 11/25/21 07:25 Pulse 83 11/25/21 07:25 Resp 20 11/25/21 07:25 BP 93/60 L 11/25/21 07:25 Pulse Ox 100 11/25/21 07:25
[2021-11-25] MEDS: Enoxaparin 40 MG/0.4 ML SYR SC (10:35)
[2021-11-25] MEDS: Normal Saline 500 ML 30 ML IV (10:36)
--- NOTE | 2021-11-25 10:48 | PT.INTREAT ---
PT Notes Visit Reasons: Dry,Gangrene RLE Inpatient Physical Therapy Treatment Note [facility] Date: 11/25/21 PRECAUTIONS: SUBJECTIVE: Pt is having a difficult day today. It has been very hard for her to be here and not be able to see her family. She really wants to have a planned day for D/C so she can mentally have that as a goal and really wants to go home. Sit-stand: SBA Stand-sit: SBA GAIT Assistive Device: 4WW Weight bearing: WBAT R LE Assist: SBA Distance: 175ft THEREX: Pt completed LE strengthening ther ex as per flow sheet. ASSESSMENT: Pt cont to be very emotional due to not being able to see her family. Pt cont to have difficulty with wt bearing and pain control. Pt was very willing to participate today in PT. PLAN: Cont as per PT POC. TREATMENT CODE/TIME: 9:35-10:10 (35) TIMOTHY SCHMIDT
[2021-11-25] MEDS: Gabapentin 300 MG CAP PO (13:23)
[2021-11-25] MEDS: cefTRIAXone 2 GM/50 ML BAG IVPB (16:06)
[2021-11-25 16:16] VITALS: BP 112/72; PULSE 104; RESP 20; TEMP 37.4; O2SAT 99
[2021-11-25] MEDS: Gabapentin 300 MG CAP 600 MG PO (22:34)
[2021-11-25 23:10] VITALS: BP 102/68; PULSE 105; RESP 20; TEMP 37; O2SAT 98
[2021-11-26] MEDS: metroNIDAZOLE 500 MG/100 ML BAG 100 MG IVPB ×3 (02:41→17:36)
[2021-11-26] MEDS: LORazepam 0.5 MG TAB PO ×2 (03:43→20:51)
[2021-11-26] MEDS: hydrOXYzine PAMOATE 25 MG CAP PO (03:43)
[2021-11-26 08:07] LABS: Abs Immature Grans 0.02 10^3/uL (0.0-0.06); Absolute Basophil Count 0.09 10^3/uL (0.0-0.2); Absolute Eosinophil Count 0.28 10^3/uL (0.0-0.7); Absolute Monocyte Count 0.85 10^3/uL (0.1-0.8); Absolute Neutrophil Count 5.59 10^3/uL (1.2-6.7); HCT 30.6 % (36.0-46.0); HGB 9.3 g/dL (11.2-15.7); Immature Grans % 0.2; MCH 26.6 pg (27.0-33.0); MCHC 30.4 % (32.0-36.0); MCV 87.4 fL (80-95); MPV 9.2 fL (8.0-11.0); Monocytes % 9.2; Neutrophils % 60.6; Nucleated RBC 0 %; Platelet Count 747 10^3/uL (130-400); RDW 18.4 % (11.7-14.6); WBC 9.23 10^3/uL (4.4-10.8)
[2021-11-26 08:46] LABS: ALT 12 U/L (14-59); AST 19 U/L (15-37); Albumin 1.9 g/dL (3.4-5.0); Alkaline Phosphatase 67 U/L (46-116); Anion Gap 7.3 mmol/L (3-11); BUN 15 mg/dL (7-18); Bilirubin, Total 0.1 mg/dL (0.2-1.0); CO2 26.7 mmol/L (21.0-32.0); CREATININE 0.6 mg/dL (0.55-1.02); Calcium 8.8 mg/dL (8.5-10.1); Chloride 106 mmol/L (98-107); Glucose 91 mg/dL (74-106); Potassium 3.8 mmol/L (3.5-5.1); Sodium 140 mmol/L (136-145); Total Protein 7.4 g/dL (6.4-8.2)
[2021-11-26 08:56] VITALS: BP 105/65; PULSE 80; RESP 16; TEMP 37; O2SAT 98
[2021-11-26] MEDS: Ascorbic Acid 500 MG TAB PO ×2 (09:01→20:32)
[2021-11-26] MEDS: Famotidine 20 MG TAB PO ×2 (09:02→20:32)
[2021-11-26] MEDS: Celecoxib 100 MG CAP PO (09:02)
[2021-11-26] MEDS: Cyanocobalamin 500 MCG TAB 1000 MCG PO (09:02)
[2021-11-26] MEDS: Zinc Sulfate 220 MG TAB PO (09:02)
[2021-11-26] MEDS: methIMAzole 5 MG TAB PO (09:03)
[2021-11-26] MEDS: DULoxetine 20 MG CAP PO (09:03)
[2021-11-26] MEDS: Buprenorphine/Naloxone 2 mg/0.5 mg FILM 1 EACH SL (09:03)
[2021-11-26] MEDS: Buprenorphine/Naloxone 8 mg/2 mg FILM 2 EACH SL (09:03)
[2021-11-26] MEDS: Normal Saline Flush 10 ML SYR IVP ×3 (09:04→17:36)
--- NOTE | 2021-11-26 09:29 | CMPROGNOTE_ITS ---
- If Service Date Differs Date of service: 11/26/21 Time of Service: 09:29 Care Management Progress Note S/O: Nicol was sitting up in bed, ZOE Robison at the bedside, she was weeping and making statements re: needing to go home and be with her family. She stated she feels like she is going crazy being in the hospital so long; CM validated these statements offering psychoeducation central to impact of prolonged hospitalization on mental health. KATARZYNA contacted Devora, director of marketing and promotions to advocate for family contact. Devora agreed to discuss with M/S staff prior to making a determination. Permission granted for in-person visit at [facility]-in library with staff [id number] only. CM reviewed details with Nicol who will review with her roberth to determine plan for visits. Per report, Nicol's surgery is postponed until and will then require three weeks of IV ABX. CM will continue to follow. A: 36 year old female admitted to [facility] on 11/13/21 for Dry, Gangrene RLE. P: Nicol will require IV abx and ongoing wound care for gangrenous wound(s) on her right ankle. Nicol will transition to SWB1 status when medically ready, until Surgery feels the area is able to accept a skin graft. CM will coordinate and support in person family visitation.
[2021-11-26] MEDS: Normal Saline 500 ML 30 ML IV (10:37)
[2021-11-26] MEDS: Enoxaparin 40 MG/0.4 ML SYR SC (10:37)
--- NOTE | 2021-11-26 11:08 | W.NUTRFU ---
Date of service: 11/26/21 Time of Service: 11:08 Nutrition Note NOTE: Met with Nicol today. Nicol was tearful, missing her family. Reviewed food log. Nicol is meeting her protein needs and has increased caloric intake as well. Meeting 100% protein needs and about 75% of caloric needs. She realizes that nutrition correlates with healing. Will continue to support and encourage. Recheck prealbumin this week. Time Spent in Nutritional Counseling and Treatment: 10 min
--- NOTE | 2021-11-26 11:16 | PT.INNT ---
Date of service: 11/26/21 Time of Service: 11:16 PT Notes Visit Reasons: Dry,Gangrene RLE Patient has had a very bad morning and has been crying. Refused offer of morning PT session. Will re-approach this afternoon for a session.
--- NOTE | 2021-11-26 11:48 | W.PULMCON ---
General Date Of Service Date of service: 11/26/21 Time of Service: 11:49 Requesting physician: Susana Richey Reason for Consult: Abnormal Chest CT Assessment and Plan Assessment and plan (1) Bronchiectasis: Status: Acute (2) Bullous emphysema: Status: Acute (3) Pneumonia: Status: Acute (4) Smoker unmotivated to quit: Status: Chronic (5) Asthma: Status: Chronic Assessment and plan: This is a 36 yo female who has a history of asthma and smoking who has had recurrent pnuemonias this year. Her Chest CT is significant for bullous emphysema and cystic appearing bronchiectasis much more severe than would be expected given her age. The RUL lung infiltrate is most likely inflammatory in nature as opposed to malignancy, but I will obtain reimaging as an outpatient to assess for resolution. She has significant left>right bronchiectasis with volume loss and significant consolidaiton with no history of chest tubes or surgery on that side of the chest. The differential for this is broad but includes infection (including AFB), alpha 1 anti-trypsin deficiency, immunodeficiency, rheumatologic or less likely cystic fibrosis. I will begin the work up for these, but ultimately will complete the work up for this as an outpatient. I did recommend bronchoscopy to sample both the RUL infiltrate and the LLL consolidations but she refused this tearfully stating she does not want anesthesia (GA would be indicated for her for this procedure given her history of opiod use). In place of this I will get a pre post hypertonic saline challenge with attempted induced sputum. Bullous emphysema - spirometry as below - agree with prn albuterol neb - alpha 1 anti-trypsin testing Bronchiectasis - immunoglobulin testing - HIV negative from this admission - NINI and ANCA - sweat chloride testing will be done at [facility] [place] as an outpatient - recommend Acapella bid after albuterol neb bid RUL infiltrate - repeat chest CT imaging in 2 months - will set up a f/u visit with me shortly after this chest CT. History of Present Illness Narrative: This is a 36 yo female admitted for a stage III pressure ulser of the right ankle, treated with ceftriaxone and Flagyl s/p surgical debridement. She underwent CXR on 11/22/21 for an elevated white count that found a 1.7x1.5cm infiltrate in the RLL. There is a chronic process in the LLL that seemed to be improving. This finding prompted a chest CT that found a 2.7x1.7x1.6 cm infiltrate in the posterior segment of the RUL. On my read of the CT she has significant bullous emphysema in addition to cystic bronchiectasis, predominantly on the left. The nodule does appear to be spiculated and certainly concerning. I cannot find any enlarged mediastinal or hilar lymph nodes on this scan. There is significant volume loss of the left lung. A CXR performed on 06/24/22 does not show evidence of this nodule and it is clear that the volumes loss on the left was present, but it seems to have worsened since this film. She holds a history of asthma but has not been on an inhaler for some time but has recently re-established with a PCP. She has approximately a 13-15 pack year smoking history. She states she got pneumonia twice this year (including COVID in July) and she has not felt as though she fully recovered. She had recent HIV testing. No family history of CF, has had children of her own, but has had some ENT issues (adenoids and ear drums). There is a family history of emphysema in her father, who also smoked, but did quit. She is not having much in the way of respiratory symptoms aside from a cough. It is sometimes productive, but states this has been improving. Consults Consult date: 11/26/21 Review of Systems All systems reviewed & are unremarkable except as noted in HPI and below PFSH All Active Problems (Updated 11/26/21 @ 13:09 by Mary Chao MD) Pneumonia (Acute) Bullous emphysema (Acute) Bronchiectasis (Acute) DVT prophylaxis (Acute) Discharge planning issues (Acute) Depression (Chronic) Puncture wound of left foot (Acute) Stage III pressure ulcer of right ankle (Acute) Wound infection (Acute) Dry gangrene (Acute) Hyperthyroidism (Chronic) Hypoalbuminemia due to protein-calorie malnutrition (Acute) Smoker unmotivated to quit (Chronic) Asthma (Chronic) Medical History (Updated 11/26/21 @ 13:09 by Mary Chao MD) Narcotic abuse in remission Tachycardia Surgical History (Updated 11/13/21 @ 10:15 by Jazzy Celaya DO) History of adenoidectomy S/p bilateral myringotomy with tube placement Social History Smoking/Tobacco Use Status: Current every day Tobacco Type: cigarettes Smoking risk assessment performed?: Yes Alcohol Intake: never Drug use: Current Sobriety Substance use type: former substance user Do you feel safe at home: Yes Do you feel safe in your relationship?: Yes Visit Medication and Allergies Active Medications Generic Name Dose Route Start Last Admin Trade Name Freq PRN Reason Stop Dose Admin Acetaminophen 650 mg 11/14/21 14:02 11/25/21 20:40 Acetaminophen 325 Mg Tab PO 650 mg Q6H PRN PRN Administration Albuterol Sulfate 2.5 mg 11/13/21 15:30 Albuterol 2.5 Mg/3 Ml Inh Soln Vial UPD Q4H PRN PRN Ascorbic Acid 500 mg 11/13/21 20:00 11/26/21 09:01 Ascorbic Acid 500 Mg Tab PO 500 mg BID HANSA Administration Buprenorphine/Naloxone 2 each 11/15/21 08:30 11/26/21 09:03 Buprenorphine/Naloxone 8 Mg/2 Mg Film SL 2 each DAILY HANSA Administration Buprenorphine/Naloxone 1 each 11/15/21 08:30 11/26/21 09:03 Buprenorphine/Naloxone 2 Mg/0.5 Mg Film SL 1 each DAILY HANSA Administration Celecoxib 100 mg 11/24/21 10:30 11/26/21 09:02 Celecoxib 100 Mg Cap PO 100 mg BID HANSA Administration Cyanocobalamin 1,000 mcg 11/15/21 08:30 11/26/21 09:02 Cyanocobalamin 500 Mcg Tab PO 1,000 mcg DAILY HANSA Administration Cyclobenzaprine HCl 5 mg 11/23/21 09:00 11/25/21 06:20 Cyclobenzaprine 5 Mg Tab PO 5 mg TID PRN PRN Administration Duloxetine HCl 20 mg 11/23/21 09:00 11/26/21 09:03 Duloxetine 20 Mg Cap PO 20 mg DAILY HANSA Administration Enoxaparin Sodium 40 mg 11/14/21 10:00 11/26/21 10:37 Enoxaparin 40 Mg/0.4 Ml Syr SC 40 mg Q24H HANSA Administration Famotidine 20 mg 11/18/21 20:00 11/26/21 09:02 Famotidine 20 Mg Tab PO 20 mg BID HANSA Administration Gabapentin 600 mg 11/23/21 22:00 11/25/21 22:34 Gabapentin 300 Mg Cap PO 600 mg HS HANSA Administration Gabapentin 300 mg 11/24/21 14:00 11/25/21 13:23 Gabapentin 300 Mg Cap PO 300 mg DAILY@1400 HANSA Administration Hydroxyzine Pamoate 25 mg 11/13/21 18:21 11/26/21 03:43 Hydroxyzine Pamoate 25 Mg Cap PO 25 mg TID PRN PRN Administration Sodium Chloride 500 mls @ 0 mls/hr 11/13/21 15:30 11/26/21 10:37 Saline 500ml Bag IV 30 mls/hr PRN PRN Administration As Directed Ceftriaxone Sodium/Dextrose 2 gm in 50 mls @ 100 mls/hr 11/22/21 16:00 11/25/21 16:06 Rocephin IVPB 100 mls/hr Q24H HANSA Administration Metronidazole 500 mg in 100 mls @ 100 mls/hr 11/23/21 10:00 11/26/21 10:37 Flagyl IVPB 100 mls/hr Q8H HANSA Administration IV Miscellaneous Supplies 1 each 11/13/21 15:30 Iv Access IV DIRECTED HANSA Lactobacillus Acidophilus/Casei 1 cap 11/14/21 08:30 11/26/21 09:03 L. Acidophilus, Casei, Rhamnosus Cap PO 1 cap DAILY HANSA Administration Lidocaine HCl 50 ml 11/16/21 16:00 11/19/21 14:57 Lidocaine 4% Topical Solution 50 Ml Btl MM 3 ml DIRECTED HANSA Administration Lorazepam 0.5 mg 11/17/21 17:24 11/26/21 03:43 Lorazepam 0.5 Mg Tab PO 0.5 mg TID PRN PRN Administration Lorazepam 1 mg 11/19/21 10:30 11/23/21 10:21 Lorazepam 2 Mg/Ml Vial IVP Not Given MOFR@1030 [facility] Megestrol Acetate 80 mg 11/24/21 08:30 11/26/21 09:02 Megestrol 40 Mg Tab PO 80 mg QID HANSA Administration Methimazole 5 mg 11/16/21 08:30 11/26/21 09:03 Methimazole 5 Mg Tab PO 5 mg DAILY HANSA Administration Multi-Ingredient Supplement 1 ounce 11/13/21 20:00 11/26/21 09:04 Protein Nutritional Supplement 16 Gm 1 Ounce Packet PO Not Given TID HANSA Nicotine 1 cartridge 11/13/21 18:21 11/18/21 13:12 Nicotine 10 Mg/Cartridge 30 Cart/Pkg IH 1 cartridge Q2H PRN PRN Administration Ondansetron HCl 4 mg 11/13/21 16:43 Ondansetron 4 Mg/2 Ml Vial IVP Q4H PRN PRN Polyethylene Glycol 17 gm 11/13/21 17:07 Polyethylene Glycol 3350 17 Gm Packet PO DAILY PRN PRN Sodium Chloride 0 ml 11/13/21 15:30 11/26/21 09:04 Normal Saline Flush 10 Ml Syr IVP 10 ml PRN PRN Administration Tramadol HCl 150 mg 11/19/21 10:45 11/23/21 10:20 Tramadol 50 Mg Tab PO Not Given MOFR@1000 [facility] Zinc Sulfate 220 mg 11/14/21 08:30 11/26/21 09:02 Zinc Sulfate 220 Mg Tab PO 220 mg DAILY HANSA Administration Allergies Penicillins Allergy (Unknown, Verified 11/13/21 14:49) Hives Exam Narrative Exam Narrative: Gen: NAD, normal respiratory effort, cachectic appearing HENT: PERRL, nasal turbinates normal without erythema or inflammation, moist oral mucosa, Mallampati 2, No LAD or JVD Chest: No respiratory distress, normal appearance of chest, diminished breath sounds, no crackles or wheezes, normal inspiratory effort Heart: regular rate and rhythym, no murmurs, rubs or gallops Abdomen: Non-distended, soft, non tender Extremities: No clubbing. Neuro: AAOx3 , non focal Psych: cooperative, appropriate mental affect Results Last Vital Signs Temp 37 C 11/26/21 08:56 Pulse 80 11/26/21 08:56 Resp 16 11/26/21 08:56 BP 105/65 11/26/21 08:56 Pulse Ox 98 11/26/21 08:56 Labs Result diagrams: 11/26/21 07:30 11/26/21 07:30 Labs: Laboratory Results - last 24 hr 11/26/21 11/26/21 07:30 07:30 WBC 9.23 RBC 3.50 L Hgb 9.3 L Hct 30.6 L MCV 87.4 MCH 26.6 L MCHC 30.4 L RDW 18.4 H Plt Count 747 H MPV 9.2 Immature Gran % 0.2 Neutrophils % 60.6 Lymphocytes % 26.0 Monocytes % 9.2 Eosinophils % 3.0 Basophils % 1.0 Nucleated RBC % 0 Absolute Neutrophils 5.59 Absolute Lymphocytes 2.40 Absolute Monocytes 0.85 H Absolute Eosinophils 0.28 Absolute Basophils 0.09 Sodium 140 Potassium 3.8 Chloride 106 Carbon Dioxide 26.7 Anion Gap 7.3 BUN 15 Creatinine 0.6 Estimated GFR/1.73 m2 >= 60.00 Glucose 91 Calcium 8.8 Total Bilirubin 0.1 L AST 19 ALT 12 L Alkaline Phosphatase 67 Total Protein 7.4 Albumin 1.9 L Imaging Chest x-ray: image reviewed CT scan - chest: report reviewed and image reviewed
[2021-11-26] MEDS: Gabapentin 300 MG CAP PO (13:50)
[2021-11-26] MEDS: traMADol 50 MG TAB 200 MG PO (13:50)
[2021-11-26 13:57] LABS: Thyroid Stimulating Immunoglob <1.0 TSI index (<=1.3)
[2021-11-26] MEDS: LORazepam 2 MG/ML VIAL 1 MG IVP (14:16)
--- NOTE | 2021-11-26 14:42 | PT.INNT ---
PT Notes Visit Reasons: Dry,Gangrene RLE 11/26/2021 Not seen in pm for PT services due to wound care treatment being performed.
--- NOTE | 2021-11-26 15:08 | W.PM.PROGNOT ---
Date of Service Date of service: 11/26/21 Time of Service: 15:08 Assessment and Plan Assessment and plan (1) Stage III pressure ulcer of right ankle: Status: Acute Assessment and plan: -Continue IV Rocephin/Flagyl to optimize wound bed for grafting next week, do not think she would be a candidate for a flap given lack of healthy tissue and poor nutritional status -Encourage increase in protein supplements, appetite stimulant added. Patient keeping log of PO intake. -Multimodal pain control as written, appears comfortable again today -Patient will need follow up for new spiculated lung mass and TIRADS 4 thyroid nodule -Active participation in PT discussed with patient to decrease risk of contracture, especially with exposed tendons -Continue supportive care, patient seemingly more motivated in actively participating in care -pulmonology consult placed (2) Puncture wound of left foot: Status: Acute (3) Hyperthyroidism: Status: Chronic (4) Hypoalbuminemia due to protein-calorie malnutrition: Status: Acute (5) Smoker unmotivated to quit: Status: Chronic (6) Asthma: Status: Chronic Subjective Subjective Interval history since last seen: Patient is doing well. No complaints Exam Resp Effort & Inspection: normal respiratory effort Auscultation: clear to auscultation bilaterally Cardio Rate: regular rate Rhythm: regular rhythm Extrem Other: Wound vac in place Objective Last Vital Signs Temp 98.6 F 11/26/21 08:56 Pulse 80 11/26/21 08:56 Resp 16 11/26/21 08:56 BP 105/65 11/26/21 08:56 Pulse Ox 98 11/26/21 08:56 Laboratory Results - last 24 hr 11/15/21 11/26/21 11/26/21 06:42 07:30 07:30 WBC 9.23 RBC 3.50 L Hgb 9.3 L Hct 30.6 L MCV 87.4 MCH 26.6 L MCHC 30.4 L RDW 18.4 H Plt Count 747 H MPV 9.2 Immature Gran % 0.2 Neutrophils % 60.6 Lymphocytes % 26.0 Monocytes % 9.2 Eosinophils % 3.0 Basophils % 1.0 Nucleated RBC % 0 Absolute Neutrophils 5.59 Absolute Lymphocytes 2.40 Absolute Monocytes 0.85 H Absolute Eosinophils 0.28 Absolute Basophils 0.09 Sodium 140 Potassium 3.8 Chloride 106 Carbon Dioxide 26.7 Anion Gap 7.3 BUN 15 Creatinine 0.6 Estimated GFR/1.73 m2 >= 60.00 Glucose 91 Calcium 8.8 Total Bilirubin 0.1 L AST 19 ALT 12 L Alkaline Phosphatase 67 Total Protein 7.4 Albumin 1.9 L Thyroid Stim Immunoglob <1.0
[2021-11-26] MEDS: cefTRIAXone 2 GM/50 ML BAG IVPB (16:06)
[2021-11-26] MEDS: Gabapentin 300 MG CAP 600 MG PO (20:51)
[2021-11-26] MEDS: traMADol 50 MG TAB PO (22:05)
[2021-11-26 23:44] VITALS: BP 101/72; PULSE 97; RESP 16; TEMP 36.6; O2SAT 99
[2021-11-27] MEDS: metroNIDAZOLE 500 MG/100 ML BAG 100 MG IVPB ×3 (02:06→17:51)
[2021-11-27] MEDS: Acetaminophen 325 MG TAB 650 MG PO ×3 (06:03→20:42)
[2021-11-27] MEDS: hydrOXYzine PAMOATE 25 MG CAP PO (06:07)
[2021-11-27] MEDS: LORazepam 0.5 MG TAB PO ×2 (06:07→17:52)
[2021-11-27 06:42] VITALS: BP 107/22; PULSE 68; RESP 18; TEMP 36.9; O2SAT 98
--- NOTE | 2021-11-27 07:04 | PGE_ITS ---
Assessment and Plan Assessment and plan (1) Bronchiectasis: Status: Acute (2) Bullous emphysema: Status: Acute (3) Pneumonia: Status: Acute (4) Smoker unmotivated to quit: Status: Chronic (5) Asthma: Status: Chronic Assessment and plan: This is a 36 yo female who has a history of asthma and smoking who has had recurrent pnuemonias this year. Her Chest CT is significant for bullous emphysema and cystic appearing bronchiectasis much more severe than would be expected given her age. The RUL lung infiltrate is most likely inflammatory in nature as opposed to malignancy, but I will obtain reimaging as an outpatient to assess for resolution. She has significant left>right bronchiectasis with volume loss and significant consolidaiton with no history of chest tubes or surgery on that side of the chest. The differential for this is broad but includes infection (including AFB), alpha 1 anti-trypsin deficiency, immunodeficiency, rheumatologic or less likely cystic fibrosis. I will begin the work up for these, but ultimately will complete the work up for this as an outpatient. I did recommend bronchoscopy to sample both the RUL infiltrate and the LLL consolidations but she refused this tearfully stating she does not want anesthesia (GA would be indicated for her for this procedure given her history of opiod use). In place of this I will get a pre post hypertonic saline challenge with attempted induced sputum. Bullous emphysema - spirometry as below - agree with prn albuterol neb - alpha 1 anti-trypsin test pending Bronchiectasis - immunoglobulin testing pending - HIV negative from this admission - NINI and ANCA pending - sweat chloride [place] [facility] [place] recommend Acapella bid after albuterol neb bid - recommend inpatient hypertonic saline challenge spirometry with attempt to induce sputum - patient refused yesterday RUL infiltrate - repeat chest CT imaging in 2 months - will set up a f/u visit with me shortly after this chest CT. General Date Of Service Date of service: 11/27/21 Time of Service: 07:09 Requesting physician: Susana Richey Reason for Consult: Abnormal chest CT Lung nodule Subjective Note Note: Nicol denies and pulmonary symptoms. Her main complaint is regarding ankle pain. Exam Narrative Exam Narrative: Gen: NAD, normal respiratory effort, well-nourished HENT: PERRL, nasal turbinates normal without erythema or inflammation, moist oral mucosa, Mallampati 2, No LAD or JVD Chest: No respiratory distress, normal appearance of chest, clear to auscultation bilaterally, no crackles or wheezes, normal inspiratory effort Heart: regular rate and rhythym, no murmurs, rubs or gallops Abdomen: Non-distended, soft, non tender Extremities: No clubbing, edema, cyanosis, rashes. Wound vac on right ankle. Neuro: AAOx3 , non focal Psych: cooperative, appropriate mental affect Objective Last Vital Signs Temp 36.9 C 11/27/21 06:42 Pulse 68 11/27/21 06:42 Resp 18 11/27/21 06:42 BP 107/22 L 11/27/21 06:42 Pulse Ox 98 11/27/21 06:42 Laboratory Results - last 24 hr 11/15/21 11/26/21 11/26/21 06:42 07:30 07:30 WBC 9.23 RBC 3.50 L Hgb 9.3 L Hct 30.6 L MCV 87.4 MCH 26.6 L MCHC 30.4 L RDW 18.4 H Plt Count 747 H MPV 9.2 Immature Gran % 0.2 Neutrophils % 60.6 Lymphocytes % 26.0 Monocytes % 9.2 Eosinophils % 3.0 Basophils % 1.0 Nucleated RBC % 0 Absolute Neutrophils 5.59 Absolute Lymphocytes 2.40 Absolute Monocytes 0.85 H Absolute Eosinophils 0.28 Absolute Basophils 0.09 Sodium 140 Potassium 3.8 Chloride 106 Carbon Dioxide 26.7 Anion Gap 7.3 BUN 15 Creatinine 0.6 Estimated GFR/1.73 m2 >= 60.00 Glucose 91 Calcium 8.8 Total Bilirubin 0.1 L AST 19 ALT 12 L Alkaline Phosphatase 67 Total Protein 7.4 Albumin 1.9 L Thyroid Stim Immunoglob <1.0 Results Medications Medications: Active Medications Generic Name Dose Route Start Last Admin Trade Name Freq PRN Reason Stop Dose Admin Acetaminophen 650 mg 11/14/21 14:02 11/27/21 06:03 Acetaminophen 325 Mg Tab PO 650 mg Q6H PRN PRN Administration Albuterol Sulfate 2.5 mg 11/13/21 15:30 Albuterol 2.5 Mg/3 Ml Inh Soln Vial UPD Q4H PRN PRN Ascorbic Acid 500 mg 11/13/21 20:00 02/28/22 20:32 Ascorbic Acid 500 Mg Tab PO 500 mg BID HANSA Administration Buprenorphine/Naloxone 2 each 11/15/21 08:30 11/26/21 09:03 Buprenorphine/Naloxone 8 Mg/2 Mg Film SL 2 each DAILY HANSA Administration Buprenorphine/Naloxone 1 each 11/15/21 08:30 11/26/21 09:03 Buprenorphine/Naloxone 2 Mg/0.5 Mg Film SL 1 each DAILY HANSA Administration Cyanocobalamin 1,000 mcg 11/15/21 08:30 11/26/21 09:02 Cyanocobalamin 500 Mcg Tab PO 1,000 mcg DAILY HANSA Administration Duloxetine HCl 20 mg 11/23/21 09:00 11/26/21 09:03 Duloxetine 20 Mg Cap PO 20 mg DAILY HANSA Administration Enoxaparin Sodium 40 mg 11/14/21 10:00 11/26/21 10:37 Enoxaparin 40 Mg/0.4 Ml Syr SC 40 mg Q24H HANSA Administration Famotidine 20 mg 11/18/21 20:00 11/26/21 20:32 Famotidine 20 Mg Tab PO 20 mg BID HANSA Administration Gabapentin 600 mg 11/23/21 22:00 11/26/21 20:51 Gabapentin 300 Mg Cap PO 600 mg HS HANSA Administration Gabapentin 300 mg 11/24/21 14:00 11/26/21 13:50 Gabapentin 300 Mg Cap PO 300 mg DAILY@1400 HANSA Administration Hydroxyzine Pamoate 25 mg 11/13/21 18:21 11/27/21 06:07 Hydroxyzine Pamoate 25 Mg Cap PO 25 mg TID PRN PRN Administration Sodium Chloride 500 mls @ 0 mls/hr 11/13/21 15:30 11/26/21 10:37 Saline 500ml Bag IV 30 mls/hr PRN PRN Administration As Directed Ceftriaxone Sodium/Dextrose 2 gm in 50 mls @ 100 mls/hr 11/22/21 16:00 11/26/21 17:03 Rocephin IVPB Infused Q24H HANSA Infusion Metronidazole 500 mg in 100 mls @ 100 mls/hr 11/23/21 10:00 11/27/21 02:06 Flagyl IVPB 100 mls/hr Q8H HANSA Administration IV Miscellaneous Supplies 1 each 11/13/21 15:30 Iv Access IV DIRECTED HANSA Lactobacillus Acidophilus/Casei 1 cap 11/14/21 08:30 11/26/21 09:03 L. Acidophilus, Casei, Rhamnosus Cap PO 1 cap DAILY HANSA Administration Lidocaine HCl 50 ml 11/16/21 16:00 11/19/21 14:57 Lidocaine 4% Topical Solution 50 Ml Btl MM 3 ml DIRECTED HANSA Administration Lorazepam 0.5 mg 11/17/21 17:24 11/27/21 06:07 Lorazepam 0.5 Mg Tab PO 0.5 mg TID PRN PRN Administration Lorazepam 1 mg 11/19/21 10:30 11/26/21 14:16 Lorazepam 2 Mg/Ml Vial IVP 1 mg MOFR@1030 HANSA Administration Megestrol Acetate 80 mg 11/24/21 08:30 11/26/21 20:32 Megestrol 40 Mg Tab PO 80 mg QID HANSA Administration Methimazole 5 mg 11/16/21 08:30 11/26/21 09:03 Methimazole 5 Mg Tab PO 5 mg DAILY HANSA Administration Multi-Ingredient Supplement 1 ounce 11/13/21 20:00 11/26/21 20:32 Protein Nutritional Supplement 16 Gm 1 Ounce Packet PO Not Given TID HANSA Nicotine 1 cartridge 11/13/21 18:21 11/18/21 13:12 Nicotine 10 Mg/Cartridge 30 Cart/Pkg IH 1 cartridge Q2H PRN PRN Administration Ondansetron HCl 4 mg 11/13/21 16:43 Ondansetron 4 Mg/2 Ml Vial IVP Q4H PRN PRN Polyethylene Glycol 17 gm 11/13/21 17:07 Polyethylene Glycol 3350 17 Gm Packet PO DAILY PRN PRN Sodium Chloride 0 ml 11/13/21 15:30 11/26/21 17:36 Normal Saline Flush 10 Ml Syr IVP 20 ml PRN PRN Administration Tramadol HCl 150 mg 11/19/21 10:45 11/26/21 13:50 Tramadol 50 Mg Tab PO Not Given MOFR@1000 HANSA Tramadol HCl 50 mg 11/26/21 22:00 11/26/21 22:05 Tramadol 50 Mg Tab PO 50 mg HS HANSA Administration Tramadol HCl 50 mg 11/27/21 08:30 Tramadol 50 Mg Tab PO [facility] Zinc Sulfate 220 mg 11/14/21 08:30 11/26/21 09:02 Zinc Sulfate 220 Mg Tab PO 220 mg DAILY HANSA Administration Allergies Penicillins Allergy (Unknown, Verified 11/13/21 14:49) Hives Labs Result Diagrams: 11/26/21 07:30 11/26/21 07:30 Labs: 11/22/21 19:00 Urine - Reflex from Ua Urine Culture - Final 11/13/21 15:21 Ankle - Right Skin Culture - Final Escherichia coli Group B Streptococcus Normal Gillian 11/13/21 15:44 Ankle - Right Anaerobic Culture - Final 11/13/21 15:44 Ankle - Right Anaerobic Culture - Final Anaerobic Gram Positive Cocci 11/13/21 15:44 Ankle - Right Wound Culture - Final Escherichia coli Group B Streptococcus Normal Gillian 11/13/21 15:44 Ankle - Right Gram Stain - Final 11/13/21 22:10 Blood Blood Culture - Final NO GROWTH 120 HOURS 11/13/21 22:00 Blood Blood Culture - Final NO GROWTH 120 HOURS 11/15/21 16:15 Nose MRSA Screen - Final Laboratory Tests Range/Units 11/13/21 11/13/21 11/13/21 10:10 10:10 10:10 WBC (4.4-10.8) 10^3/uL RBC (3.93-5.22) 10^6/uL Hgb (11.2-15.7) g/dL Hct (36.0-46.0) % MCV (80-95) fL MCH (27.0-33.0) pg MCHC (32.0-36.0) % RDW (11.7-14.6) % Plt Count (130-400) 10^3/uL MPV (8.0-11.0) fL Immature Gran % Neutrophils % Band Neutrophils % Lymphocytes % Monocytes % Eosinophils % Basophils % Nucleated RBC % % Absolute Neutrophils (1.2-6.7) 10^3/uL Absolute Lymphocytes (1.2-3.4) 10^3/uL Absolute Monocytes (0.1-0.8) 10^3/uL Absolute Eosinophils (0.0-0.7) 10^3/uL Absolute Basophils (0.0-0.2) 10^3/uL RBC Morphology ESR (0-20) mm/hr 87 H D-Dimer (<500) ng/mlFEU VBG Lactate (0.6-1.4) mmol/L 1.6 H Sodium (136-145) mmol/L 138 Potassium (3.5-5.1) mmol/L 2.6 L* Chloride (98-107) mmol/L 102 Carbon Dioxide (21.0-32.0) mmol/L 24.8 Anion Gap (3-11) mmol/L 11.2 H BUN (7-18) mg/dL 24 H Creatinine (0.55-1.02) mg/dL 0.8 Estimated GFR/1.73 m2 (mL/min/1.73m2) >= 60.00 Glucose (74-106) mg/dL 186 H Hemoglobin A1c (<5.7) % Calcium (8.5-10.1) mg/dL 9.1 Phosphorus (2.6-4.7) mg/dL Magnesium (1.8-2.4) mg/dL Total Bilirubin (0.2-1.0) mg/dL 0.2 GGT (5-55) U/L AST (15-37) U/L 16 ALT (14-59) U/L 27 Alkaline Phosphatase (46-116) U/L 129 H C-Reactive Protein (0.0-0.3) mg/dL 11.51 H Total Protein (6.4-8.2) g/dL 8.5 H Albumin (3.4-5.0) g/dL 2.4 L Prealbumin (20-40) mg/dL Vitamin B12 (193-986) pg/mL 25-OH Vitamin D Total (30-100) ng/mL Folate (8.6-20.0) ng/mL Procalcitonin ng/mL TSH (0.36-3.74) uIU/mL Free T4 (0.76-1.46) ng/dL Total T3 (97-169) ng/dL Thyroid Stim Immunoglob (<=1.3) TSI index Urine Color (Yellow) Urine Clarity (Clear) Urine pH (5-8) Ur Specific [place] (1.005-1.025) Urine Protein (Negative) mg/dL Urine Ketones (Negative) mg/dL Urine Blood (Negative) Urine Nitrite (Negative) Urine Bilirubin (Negative) Urine Urobilinogen (Up TO 0.2) EU/dL Ur Leukocyte Esterase (Negative) Urine RBC (0-2) HPF Urine WBC (0-5) HPF Ur Epithelial Cells (Negative) HPF Urine Crystals (Negative) HPF Urine Bacteria (Negative) HPF Urine Casts (Negative) LPF Urine Mucus (Negative) Urine Other (Negative) Ur Culture Indicated? Urine Glucose (Negative) mg/dL Stool Calprotectin mcg/g Vancomycin Trough (10.0-20.0) ug/mL Urine Opiates Screen (Negative) Urine Methadone Screen (Negative) Ur Barbiturates Screen (Negative) Ur Tricyclics Screen (Negative) Ur Amphetamines Screen (Negative) U Benzodiazepines Scrn (Negative) Urine Cocaine Screen (Negative) Ur THC Screen (Negative) NINI Titer NINI Titer 2 NINI Titer 3 NINI Interpretation (Negative) Thyroperoxidase Ab (<=60) IU/mL Thyroglobulin Antibody (<=60) IU/mL COVID-19 Source SARS-CoV-2 (PCR) Hep Bs Antigen (Negative) Hep Bs Antibody (See Note) Hep Bs Antibody, Quant (See Note) mIU/mL Hep B Core Total Ab (Negative) Hepatitis C Antibody (Negative) HIV 1&2 Ag/Ab, 4th Gen (Negative) Add-On Test Request Patient ABO/Rh Antibody Screen Range/Units 11/13/21 11/13/21 11/13/21 10:10 10:10 13:07 WBC (4.4-10.8) 10^3/uL 28.17 H* RBC (3.93-5.22) 10^6/uL 4.46 Hgb (11.2-15.7) g/dL 11.7 Hct (36.0-46.0) % 37.6 MCV (80-95) fL 84.3 MCH (27.0-33.0) pg 26.2 L MCHC (32.0-36.0) % 31.1 L RDW (11.7-14.6) % 16.7 H Plt Count (130-400) 10^3/uL 612 H MPV (8.0-11.0) fL 9.5 Immature Gran % 0.0 Neutrophils % 79.0 Band Neutrophils % 2 Lymphocytes % 11.0 Monocytes % 5.0 Eosinophils % 1.0 Basophils % 2.0 Nucleated RBC % % 0 Absolute Neutrophils (1.2-6.7) 10^3/uL 22.82 H Absolute Lymphocytes (1.2-3.4) 10^3/uL 3.10 Absolute Monocytes (0.1-0.8) 10^3/uL 1.41 H Absolute Eosinophils (0.0-0.7) 10^3/uL 0.28 Absolute Basophils (0.0-0.2) 10^3/uL 0.56 H RBC Morphology Normal ESR (0-20) mm/hr D-Dimer (<500) ng/mlFEU VBG Lactate (0.6-1.4) mmol/L Sodium (136-145) mmol/L Potassium (3.5-5.1) mmol/L Chloride (98-107) mmol/L Carbon Dioxide (21.0-32.0) mmol/L Anion Gap (3-11) mmol/L BUN (7-18) mg/dL Creatinine (0.55-1.02) mg/dL Estimated GFR/1.73 m2 (mL/min/1.73m2) Glucose (74-106) mg/dL Hemoglobin A1c (<5.7) % 5.1 Calcium (8.5-10.1) mg/dL Phosphorus (2.6-4.7) mg/dL Magnesium (1.8-2.4) mg/dL Total Bilirubin (0.2-1.0) mg/dL GGT (5-55) U/L AST (15-37) U/L ALT (14-59) U/L Alkaline Phosphatase (46-116) U/L C-Reactive Protein (0.0-0.3) mg/dL Total Protein (6.4-8.2) g/dL Albumin (3.4-5.0) g/dL Prealbumin (20-40) mg/dL Vitamin B12 (193-986) pg/mL 25-OH Vitamin D Total (30-100) ng/mL Folate (8.6-20.0) ng/mL Procalcitonin ng/mL TSH (0.36-3.74) uIU/mL Free T4 (0.76-1.46) ng/dL Total T3 (97-169) ng/dL Thyroid Stim Immunoglob (<=1.3) TSI index Urine Color (Yellow) Urine Clarity (Clear) Urine pH (5-8) Ur Specific [place] (1.005-1.025) Urine Protein (Negative) mg/dL Urine Ketones (Negative) mg/dL Urine Blood (Negative) Urine Nitrite (Negative) Urine Bilirubin (Negative) Urine Urobilinogen (Up TO 0.2) EU/dL Ur Leukocyte Esterase (Negative) Urine RBC (0-2) HPF Urine WBC (0-5) HPF Ur Epithelial Cells (Negative) HPF Urine Crystals (Negative) HPF Urine Bacteria (Negative) HPF Urine Casts (Negative) LPF Urine Mucus (Negative) Urine Other (Negative) Ur Culture Indicated? Urine Glucose (Negative) mg/dL Stool Calprotectin mcg/g Vancomycin Trough (10.0-20.0) ug/mL Urine Opiates Screen (Negative) Urine Methadone Screen (Negative) Ur Barbiturates Screen (Negative) Ur Tricyclics Screen (Negative) Ur Amphetamines Screen (Negative) U Benzodiazepines Scrn (Negative) Urine Cocaine Screen (Negative) Ur THC Screen (Negative) NINI Titer NINI Titer 2 NINI Titer 3 NINI Interpretation (Negative) Thyroperoxidase Ab (<=60) IU/mL Thyroglobulin Antibody (<=60) IU/mL COVID-19 Source Cancelled SARS-CoV-2 (PCR) Cancelled Hep Bs Antigen (Negative) Hep Bs Antibody (See Note) Hep Bs Antibody, Quant (See Note) mIU/mL Hep B Core Total Ab (Negative) Hepatitis C Antibody (Negative) HIV 1&2 Ag/Ab, 4th Gen (Negative) Add-On Test Request Patient ABO/Rh Antibody Screen Range/Units 11/13/21 11/13/21 11/13/21 13:12 13:47 14:00 WBC (4.4-10.8) 10^3/uL RBC (3.93-5.22) 10^6/uL Hgb (11.2-15.7) g/dL Hct (36.0-46.0) % MCV (80-95) fL MCH (27.0-33.0) pg MCHC (32.0-36.0) % RDW (11.7-14.6) % Plt Count (130-400) 10^3/uL MPV (8.0-11.0) fL Immature Gran % Neutrophils % Band Neutrophils % Lymphocytes % Monocytes % Eosinophils % Basophils % Nucleated RBC % % Absolute Neutrophils (1.2-6.7) 10^3/uL Absolute Lymphocytes (1.2-3.4) 10^3/uL Absolute Monocytes (0.1-0.8) 10^3/uL Absolute Eosinophils (0.0-0.7) 10^3/uL Absolute Basophils (0.0-0.2) 10^3/uL RBC Morphology ESR (0-20) mm/hr D-Dimer (<500) ng/mlFEU VBG Lactate (0.6-1.4) mmol/L Sodium (136-145) mmol/L Cancelled Potassium (3.5-5.1) mmol/L Cancelled Chloride (98-107) mmol/L Cancelled Carbon Dioxide (21.0-32.0) mmol/L Cancelled Anion Gap (3-11) mmol/L Cancelled BUN (7-18) mg/dL Cancelled Creatinine (0.55-1.02) mg/dL Cancelled Estimated GFR/1.73 m2 (mL/min/1.73m2) Cancelled Glucose (74-106) mg/dL Cancelled Hemoglobin A1c (<5.7) % Calcium (8.5-10.1) mg/dL Cancelled Phosphorus (2.6-4.7) mg/dL Magnesium (1.8-2.4) mg/dL Total Bilirubin (0.2-1.0) mg/dL GGT (5-55) U/L AST (15-37) U/L ALT (14-59) U/L Alkaline Phosphatase (46-116) U/L C-Reactive Protein (0.0-0.3) mg/dL Total Protein (6.4-8.2) g/dL Albumin (3.4-5.0) g/dL Prealbumin (20-40) mg/dL Vitamin B12 (193-986) pg/mL 25-OH Vitamin D Total (30-100) ng/mL Folate (8.6-20.0) ng/mL Procalcitonin ng/mL TSH (0.36-3.74) uIU/mL Free T4 (0.76-1.46) ng/dL Total T3 (97-169) ng/dL Thyroid Stim Immunoglob (<=1.3) TSI index Urine Color (Yellow) Urine Clarity (Clear) Urine pH (5-8) Ur Specific [place] (1.005-1.025) Urine Protein (Negative) mg/dL Urine Ketones (Negative) mg/dL Urine Blood (Negative) Urine Nitrite (Negative) Urine Bilirubin (Negative) Urine Urobilinogen (Up TO 0.2) EU/dL Ur Leukocyte Esterase (Negative) Urine RBC (0-2) HPF Urine WBC (0-5) HPF Ur Epithelial Cells (Negative) HPF Urine Crystals (Negative) HPF Urine Bacteria (Negative) HPF Urine Casts (Negative) LPF Urine Mucus (Negative) Urine Other (Negative) Ur Culture Indicated? Urine Glucose (Negative) mg/dL Stool Calprotectin mcg/g Vancomycin Trough (10.0-20.0) ug/mL Urine Opiates Screen (Negative) Negative Urine Methadone Screen (Negative) Negative Ur Barbiturates Screen (Negative) Negative Ur Tricyclics Screen (Negative) Negative Ur Amphetamines Screen (Negative) Negative U Benzodiazepines Scrn (Negative) Negative Urine Cocaine Screen (Negative) Negative Ur THC Screen (Negative) Negative NINI Titer NINI Titer 2 NINI Titer 3 NINI Interpretation (Negative) Thyroperoxidase Ab (<=60) IU/mL Thyroglobulin Antibody (<=60) IU/mL COVID-19 Source NASAL SARS-CoV-2 (PCR) Negative Hep Bs Antigen (Negative) Hep Bs Antibody (See Note) Hep Bs Antibody, Quant (See Note) mIU/mL Hep B Core Total Ab (Negative) Hepatitis C Antibody (Negative) HIV 1&2 Ag/Ab, 4th Gen (Negative) Add-On Test Request Patient ABO/Rh Antibody Screen Range/Units 11/13/21 11/13/21 11/13/21 14:25 14:30 20:09 WBC (4.4-10.8) 10^3/uL RBC (3.93-5.22) 10^6/uL Hgb (11.2-15.7) g/dL Hct (36.0-46.0) % MCV (80-95) fL MCH (27.0-33.0) pg MCHC (32.0-36.0) % RDW (11.7-14.6) % Plt Count (130-400) 10^3/uL MPV (8.0-11.0) fL Immature Gran % Neutrophils % Band Neutrophils % Lymphocytes % Monocytes % Eosinophils % Basophils % Nucleated RBC % % Absolute Neutrophils (1.2-6.7) 10^3/uL Absolute Lymphocytes (1.2-3.4) 10^3/uL Absolute Monocytes (0.1-0.8) 10^3/uL Absolute Eosinophils (0.0-0.7) 10^3/uL Absolute Basophils (0.0-0.2) 10^3/uL RBC Morphology ESR (0-20) mm/hr D-Dimer (<500) ng/mlFEU VBG Lactate (0.6-1.4) mmol/L Sodium (136-145) mmol/L 139 Potassium (3.5-5.1) mmol/L 3.5 Chloride (98-107) mmol/L 107 Carbon Dioxide (21.0-32.0) mmol/L 22.6 Anion Gap (3-11) mmol/L 9.4 BUN (7-18) mg/dL 18 D Creatinine (0.55-1.02) mg/dL 0.5 L D Estimated GFR/1.73 m2 (mL/min/1.73m2) >= 60.00 Glucose (74-106) mg/dL 91 D Hemoglobin A1c (<5.7) % Calcium (8.5-10.1) mg/dL 8.1 L Phosphorus (2.6-4.7) mg/dL Magnesium (1.8-2.4) mg/dL Total Bilirubin (0.2-1.0) mg/dL GGT (5-55) U/L 34 AST (15-37) U/L ALT (14-59) U/L Alkaline Phosphatase (46-116) U/L C-Reactive Protein (0.0-0.3) mg/dL Total Protein (6.4-8.2) g/dL Albumin (3.4-5.0) g/dL Prealbumin (20-40) mg/dL Vitamin B12 (193-986) pg/mL 25-OH Vitamin D Total (30-100) ng/mL Folate (8.6-20.0) ng/mL Procalcitonin ng/mL TSH (0.36-3.74) uIU/mL Free T4 (0.76-1.46) ng/dL Total T3 (97-169) ng/dL Thyroid Stim Immunoglob (<=1.3) TSI index Urine Color (Yellow) Yellow Urine Clarity (Clear) Sl Cloudy Urine pH (5-8) 7.0 Ur Specific [place] (1.005-1.025) 1.015 Urine Protein (Negative) mg/dL Trace H Urine Ketones (Negative) mg/dL Negative Urine Blood (Negative) Moderate H Urine Nitrite (Negative) Negative Urine Bilirubin (Negative) Negative Urine Urobilinogen (Up TO 0.2) EU/dL 1.0 H Ur Leukocyte Esterase (Negative) Negative Urine RBC (0-2) HPF 10-20 H Urine WBC (0-5) HPF 3-5 Ur Epithelial Cells (Negative) HPF Few Urine Crystals (Negative) HPF Negative Urine Bacteria (Negative) HPF Rare Urine Casts (Negative) LPF Negative Urine Mucus (Negative) Negative Urine Other (Negative) Ur Culture Indicated? No Urine Glucose (Negative) mg/dL Negative Stool Calprotectin mcg/g Vancomycin Trough (10.0-20.0) ug/mL Urine Opiates Screen (Negative) Urine Methadone Screen (Negative) Ur Barbiturates Screen (Negative) Ur Tricyclics Screen (Negative) Ur Amphetamines Screen (Negative) U Benzodiazepines Scrn (Negative) Urine Cocaine Screen (Negative) Ur THC Screen (Negative) NINI Titer NINI Titer 2 NINI Titer 3 NINI Interpretation (Negative) Thyroperoxidase Ab (<=60) IU/mL Thyroglobulin Antibody (<=60) IU/mL COVID-19 Source SARS-CoV-2 (PCR) Hep Bs Antigen (Negative) Hep Bs Antibody (See Note) Hep Bs Antibody, Quant (See Note) mIU/mL Hep B Core Total Ab (Negative) Hepatitis C Antibody (Negative) HIV 1&2 Ag/Ab, 4th Gen (Negative) Add-On Test Request Patient ABO/Rh Antibody Screen Range/Units 11/13/21 11/13/21 11/14/21 22:35 Unknown 06:35 WBC (4.4-10.8) 10^3/uL RBC (3.93-5.22) 10^6/uL Hgb (11.2-15.7) g/dL Hct (36.0-46.0) % MCV (80-95) fL MCH (27.0-33.0) pg MCHC (32.0-36.0) % RDW (11.7-14.6) % Plt Count (130-400) 10^3/uL MPV (8.0-11.0) fL Immature Gran % Neutrophils % Band Neutrophils % Lymphocytes % Monocytes % Eosinophils % Basophils % Nucleated RBC % % Absolute Neutrophils (1.2-6.7) 10^3/uL Absolute Lymphocytes (1.2-3.4) 10^3/uL Absolute Monocytes (0.1-0.8) 10^3/uL Absolute Eosinophils (0.0-0.7) 10^3/uL Absolute Basophils (0.0-0.2) 10^3/uL RBC Morphology ESR (0-20) mm/hr D-Dimer (<500) ng/mlFEU VBG Lactate (0.6-1.4) mmol/L Sodium (136-145) mmol/L Potassium (3.5-5.1) mmol/L Chloride (98-107) mmol/L Carbon Dioxide (21.0-32.0) mmol/L Anion Gap (3-11) mmol/L BUN (7-18) mg/dL Creatinine (0.55-1.02) mg/dL Estimated GFR/1.73 m2 (mL/min/1.73m2) Glucose (74-106) mg/dL Hemoglobin A1c (<5.7) % Calcium (8.5-10.1) mg/dL Phosphorus (2.6-4.7) mg/dL Magnesium (1.8-2.4) mg/dL 1.6 L Total Bilirubin (0.2-1.0) mg/dL GGT (5-55) U/L AST (15-37) U/L ALT (14-59) U/L Alkaline Phosphatase (46-116) U/L C-Reactive Protein (0.0-0.3) mg/dL Cancelled 11.11 H Total Protein (6.4-8.2) g/dL Albumin (3.4-5.0) g/dL Prealbumin (20-40) mg/dL Vitamin B12 (193-986) pg/mL 389 25-OH Vitamin D Total (30-100) ng/mL Folate (8.6-20.0) ng/mL > 20.0 H Procalcitonin ng/mL TSH (0.36-3.74) uIU/mL Free T4 (0.76-1.46) ng/dL Total T3 (97-169) ng/dL Thyroid Stim Immunoglob (<=1.3) TSI index Urine Color (Yellow) Urine Clarity (Clear) Urine pH (5-8) Ur Specific [place] (1.005-1.025) Urine Protein (Negative) mg/dL Urine Ketones (Negative) mg/dL Urine Blood (Negative) Urine Nitrite (Negative) Urine Bilirubin (Negative) Urine Urobilinogen (Up TO 0.2) EU/dL Ur Leukocyte Esterase (Negative) Urine RBC (0-2) HPF Urine WBC (0-5) HPF Ur Epithelial Cells (Negative) HPF Urine Crystals (Negative) HPF Urine Bacteria (Negative) HPF Urine Casts (Negative) LPF Urine Mucus (Negative) Urine Other (Negative) Ur Culture Indicated? Urine Glucose (Negative) mg/dL Stool Calprotectin mcg/g Vancomycin Trough (10.0-20.0) ug/mL Urine Opiates Screen (Negative) Urine Methadone Screen (Negative) Ur Barbiturates Screen (Negative) Ur Tricyclics Screen (Negative) Ur Amphetamines Screen (Negative) U Benzodiazepines Scrn (Negative) Urine Cocaine Screen (Negative) Ur THC Screen (Negative) NINI Titer NINI Titer 2 NINI Titer 3 NINI Interpretation (Negative) Thyroperoxidase Ab (<=60) IU/mL Thyroglobulin Antibody (<=60) IU/mL COVID-19 Source SARS-CoV-2 (PCR) Hep Bs Antigen (Negative) Hep Bs Antibody (See Note) Hep Bs Antibody, Quant (See Note) mIU/mL Hep B Core Total Ab (Negative) Hepatitis C Antibody (Negative) HIV 1&2 Ag/Ab, 4th Gen (Negative) Add-On Test Request DONE Patient ABO/Rh Antibody Screen Range/Units 11/14/21 11/14/21 11/14/21 06:35 06:35 06:35 WBC (4.4-10.8) 10^3/uL RBC (3.93-5.22) 10^6/uL Hgb (11.2-15.7) g/dL Hct (36.0-46.0) % MCV (80-95) fL MCH (27.0-33.0) pg MCHC (32.0-36.0) % RDW (11.7-14.6) % Plt Count (130-400) 10^3/uL MPV (8.0-11.0) fL Immature Gran % Neutrophils % Band Neutrophils % Lymphocytes % Monocytes % Eosinophils % Basophils % Nucleated RBC % % Absolute Neutrophils (1.2-6.7) 10^3/uL Absolute Lymphocytes (1.2-3.4) 10^3/uL Absolute Monocytes (0.1-0.8) 10^3/uL Absolute Eosinophils (0.0-0.7) 10^3/uL Absolute Basophils (0.0-0.2) 10^3/uL RBC Morphology ESR (0-20) mm/hr 41 H D-Dimer (<500) ng/mlFEU VBG Lactate (0.6-1.4) mmol/L Sodium (136-145) mmol/L Potassium (3.5-5.1) mmol/L Chloride (98-107) mmol/L Carbon Dioxide (21.0-32.0) mmol/L Anion Gap (3-11) mmol/L BUN (7-18) mg/dL Creatinine (0.55-1.02) mg/dL Estimated GFR/1.73 m2 (mL/min/1.73m2) Glucose (74-106) mg/dL Hemoglobin A1c (<5.7) % Calcium (8.5-10.1) mg/dL Phosphorus (2.6-4.7) mg/dL Magnesium (1.8-2.4) mg/dL Total Bilirubin (0.2-1.0) mg/dL GGT (5-55) U/L AST (15-37) U/L ALT (14-59) U/L Alkaline Phosphatase (46-116) U/L C-Reactive Protein (0.0-0.3) mg/dL Total Protein (6.4-8.2) g/dL Albumin (3.4-5.0) g/dL Prealbumin (20-40) mg/dL Vitamin B12 (193-986) pg/mL 25-OH Vitamin D Total (30-100) ng/mL 13.8 L Folate (8.6-20.0) ng/mL Procalcitonin ng/mL TSH (0.36-3.74) uIU/mL Free T4 (0.76-1.46) ng/dL Total T3 (97-169) ng/dL Thyroid Stim Immunoglob (<=1.3) TSI index Urine Color (Yellow) Urine Clarity (Clear) Urine pH (5-8) Ur Specific [place] (1.005-1.025) Urine Protein (Negative) mg/dL Urine Ketones (Negative) mg/dL Urine Blood (Negative) Urine Nitrite (Negative) Urine Bilirubin (Negative) Urine Urobilinogen (Up TO 0.2) EU/dL Ur Leukocyte Esterase (Negative) Urine RBC (0-2) HPF Urine WBC (0-5) HPF Ur Epithelial Cells (Negative) HPF Urine Crystals (Negative) HPF Urine Bacteria (Negative) HPF Urine Casts (Negative) LPF Urine Mucus (Negative) Urine Other (Negative) Ur Culture Indicated? Urine Glucose (Negative) mg/dL Stool Calprotectin mcg/g Vancomycin Trough (10.0-20.0) ug/mL Urine Opiates Screen (Negative) Urine Methadone Screen (Negative) Ur Barbiturates Screen (Negative) Ur Tricyclics Screen (Negative) Ur Amphetamines Screen (Negative) U Benzodiazepines Scrn (Negative) Urine Cocaine Screen (Negative) Ur THC Screen (Negative) NINI Titer NINI Titer 2 NINI Titer 3 NINI Interpretation (Negative) Thyroperoxidase Ab (<=60) IU/mL Thyroglobulin Antibody (<=60) IU/mL COVID-19 Source SARS-CoV-2 (PCR) Hep Bs Antigen (Negative) Hep Bs Antibody (See Note) Hep Bs Antibody, Quant (See Note) mIU/mL Hep B Core Total Ab (Negative) Hepatitis C Antibody (Negative) HIV 1&2 Ag/Ab, 4th Gen (Negative) Negative Add-On Test Request Patient ABO/Rh Antibody Screen Range/Units 11/14/21 11/14/21 11/14/21 06:35 06:35 06:35 WBC (4.4-10.8) 10^3/uL RBC (3.93-5.22) 10^6/uL Hgb (11.2-15.7) g/dL Hct (36.0-46.0) % MCV (80-95) fL MCH (27.0-33.0) pg MCHC (32.0-36.0) % RDW (11.7-14.6) % Plt Count (130-400) 10^3/uL MPV (8.0-11.0) fL Immature Gran % Neutrophils % Band Neutrophils % Lymphocytes % Monocytes % Eosinophils % Basophils % Nucleated RBC % % Absolute Neutrophils (1.2-6.7) 10^3/uL Absolute Lymphocytes (1.2-3.4) 10^3/uL Absolute Monocytes (0.1-0.8) 10^3/uL Absolute Eosinophils (0.0-0.7) 10^3/uL Absolute Basophils (0.0-0.2) 10^3/uL RBC Morphology ESR (0-20) mm/hr D-Dimer (<500) ng/mlFEU VBG Lactate (0.6-1.4) mmol/L Sodium (136-145) mmol/L 141 Potassium (3.5-5.1) mmol/L 3.5 Chloride (98-107) mmol/L 111 H Carbon Dioxide (21.0-32.0) mmol/L 20.5 L Anion Gap (3-11) mmol/L 9.5 BUN (7-18) mg/dL 11 D Creatinine (0.55-1.02) mg/dL 0.6 Estimated GFR/1.73 m2 (mL/min/1.73m2) >= 60.00 Glucose (74-106) mg/dL 84 Hemoglobin A1c (<5.7) % Calcium (8.5-10.1) mg/dL 9.0 Phosphorus (2.6-4.7) mg/dL Magnesium (1.8-2.4) mg/dL Total Bilirubin (0.2-1.0) mg/dL 0.2 GGT (5-55) U/L AST (15-37) U/L 12 L ALT (14-59) U/L 15 Alkaline Phosphatase (46-116) U/L 91 C-Reactive Protein (0.0-0.3) mg/dL Total Protein (6.4-8.2) g/dL 6.4 Albumin (3.4-5.0) g/dL 1.8 L Prealbumin (20-40) mg/dL Vitamin B12 (193-986) pg/mL 25-OH Vitamin D Total (30-100) ng/mL Folate (8.6-20.0) ng/mL Procalcitonin ng/mL TSH (0.36-3.74) uIU/mL Free T4 (0.76-1.46) ng/dL Total T3 (97-169) ng/dL Thyroid Stim Immunoglob (<=1.3) TSI index Urine Color (Yellow) Urine Clarity (Clear) Urine pH (5-8) Ur Specific [place] (1.005-1.025) Urine Protein (Negative) mg/dL Urine Ketones (Negative) mg/dL Urine Blood (Negative) Urine Nitrite (Negative) Urine Bilirubin (Negative) Urine Urobilinogen (Up TO 0.2) EU/dL Ur Leukocyte Esterase (Negative) Urine RBC (0-2) HPF Urine WBC (0-5) HPF Ur Epithelial Cells (Negative) HPF Urine Crystals (Negative) HPF Urine Bacteria (Negative) HPF Urine Casts (Negative) LPF Urine Mucus (Negative) Urine Other (Negative) Ur Culture Indicated? Urine Glucose (Negative) mg/dL Stool Calprotectin mcg/g Vancomycin Trough (10.0-20.0) ug/mL Urine Opiates Screen (Negative) Urine Methadone Screen (Negative) Ur Barbiturates Screen (Negative) Ur Tricyclics Screen (Negative) Ur Amphetamines Screen (Negative) U Benzodiazepines Scrn (Negative) Urine Cocaine Screen (Negative) Ur THC Screen (Negative) NINI Titer 1:80 Speckled NINI Titer 2 Not Applicable NINI Titer 3 Not Applicable NINI Interpretation (Negative) Positive A Thyroperoxidase Ab (<=60) IU/mL Thyroglobulin Antibody (<=60) IU/mL COVID-19 Source SARS-CoV-2 (PCR) Hep Bs Antigen (Negative) Negative Hep Bs Antibody (See Note) Positive Hep Bs Antibody, Quant (See Note) mIU/mL 22.8 Hep B Core Total Ab (Negative) Negative Hepatitis C Antibody (Negative) Negative HIV 1&2 Ag/Ab, 4th Gen (Negative) Add-On Test Request Patient ABO/Rh Antibody Screen Range/Units 11/14/21 11/14/21 11/14/21 06:35 06:35 06:35 WBC (4.4-10.8) 10^3/uL 13.86 H D RBC (3.93-5.22) 10^6/uL 3.54 L Hgb (11.2-15.7) g/dL 9.3 L D Hct (36.0-46.0) % 31.4 L MCV (80-95) fL 88.7 D MCH (27.0-33.0) pg 26.3 L MCHC (32.0-36.0) % 29.6 L RDW (11.7-14.6) % 16.6 H Plt Count (130-400) 10^3/uL 381 D MPV (8.0-11.0) fL 9.6 Immature Gran % 0.4 Neutrophils % 78.5 Band Neutrophils % Lymphocytes % 13.1 Monocytes % 5.6 Eosinophils % 2.2 Basophils % 0.2 Nucleated RBC % % 0 Absolute Neutrophils (1.2-6.7) 10^3/uL 10.88 H Absolute Lymphocytes (1.2-3.4) 10^3/uL 1.82 Absolute Monocytes (0.1-0.8) 10^3/uL 0.78 Absolute Eosinophils (0.0-0.7) 10^3/uL 0.30 Absolute Basophils (0.0-0.2) 10^3/uL 0.03 RBC Morphology ESR (0-20) mm/hr D-Dimer (<500) ng/mlFEU VBG Lactate (0.6-1.4) mmol/L Sodium (136-145) mmol/L Potassium (3.5-5.1) mmol/L Chloride (98-107) mmol/L Carbon Dioxide (21.0-32.0) mmol/L Anion Gap (3-11) mmol/L BUN (7-18) mg/dL Creatinine (0.55-1.02) mg/dL Estimated GFR/1.73 m2 (mL/min/1.73m2) Glucose (74-106) mg/dL Hemoglobin A1c (<5.7) % Calcium (8.5-10.1) mg/dL Phosphorus (2.6-4.7) mg/dL 4.7 Magnesium (1.8-2.4) mg/dL Total Bilirubin (0.2-1.0) mg/dL GGT (5-55) U/L AST (15-37) U/L ALT (14-59) U/L Alkaline Phosphatase (46-116) U/L C-Reactive Protein (0.0-0.3) mg/dL Total Protein (6.4-8.2) g/dL Albumin (3.4-5.0) g/dL Prealbumin (20-40) mg/dL Vitamin B12 (193-986) pg/mL 25-OH Vitamin D Total (30-100) ng/mL Folate (8.6-20.0) ng/mL Procalcitonin ng/mL TSH (0.36-3.74) uIU/mL Free T4 (0.76-1.46) ng/dL Total T3 (97-169) ng/dL Thyroid Stim Immunoglob (<=1.3) TSI index Urine Color (Yellow) Urine Clarity (Clear) Urine pH (5-8) Ur Specific [place] (1.005-1.025) Urine Protein (Negative) mg/dL Urine Ketones (Negative) mg/dL Urine Blood (Negative) Urine Nitrite (Negative) Urine Bilirubin (Negative) Urine Urobilinogen (Up TO 0.2) EU/dL Ur Leukocyte Esterase (Negative) Urine RBC (0-2) HPF Urine WBC (0-5) HPF Ur Epithelial Cells (Negative) HPF Urine Crystals (Negative) HPF Urine Bacteria (Negative) HPF Urine Casts (Negative) LPF Urine Mucus (Negative) Urine Other (Negative) Ur Culture Indicated? Urine Glucose (Negative) mg/dL Stool Calprotectin mcg/g Vancomycin Trough (10.0-20.0) ug/mL Urine Opiates Screen (Negative) Urine Methadone Screen (Negative) Ur Barbiturates Screen (Negative) Ur Tricyclics Screen (Negative) Ur Amphetamines Screen (Negative) U Benzodiazepines Scrn (Negative) Urine Cocaine Screen (Negative) Ur THC Screen (Negative) NINI Titer NINI Titer 2 NINI Titer 3 NINI Interpretation (Negative) Thyroperoxidase Ab (<=60) IU/mL Thyroglobulin Antibody (<=60) IU/mL COVID-19 Source SARS-CoV-2 (PCR) Hep Bs Antigen (Negative) Hep Bs Antibody (See Note) Hep Bs Antibody, Quant (See Note) mIU/mL Hep B Core Total Ab (Negative) Hepatitis C Antibody (Negative) HIV 1&2 Ag/Ab, 4th Gen (Negative) Add-On Test Request DONE Patient ABO/Rh Antibody Screen Range/Units 11/14/21 11/14/21 11/14/21 06:35 06:35 06:35 WBC (4.4-10.8) 10^3/uL RBC (3.93-5.22) 10^6/uL Hgb (11.2-15.7) g/dL Hct (36.0-46.0) % MCV (80-95) fL MCH (27.0-33.0) pg MCHC (32.0-36.0) % RDW (11.7-14.6) % Plt Count (130-400) 10^3/uL MPV (8.0-11.0) fL Immature Gran % Neutrophils % Band Neutrophils % Lymphocytes % Monocytes % Eosinophils % Basophils % Nucleated RBC % % Absolute Neutrophils (1.2-6.7) 10^3/uL Absolute Lymphocytes (1.2-3.4) 10^3/uL Absolute Monocytes (0.1-0.8) 10^3/uL Absolute Eosinophils (0.0-0.7) 10^3/uL Absolute Basophils (0.0-0.2) 10^3/uL RBC Morphology ESR (0-20) mm/hr D-Dimer (<500) ng/mlFEU VBG Lactate (0.6-1.4) mmol/L Sodium (136-145) mmol/L Potassium (3.5-5.1) mmol/L Chloride (98-107) mmol/L Carbon Dioxide (21.0-32.0) mmol/L Anion Gap (3-11) mmol/L BUN (7-18) mg/dL Creatinine (0.55-1.02) mg/dL Estimated GFR/1.73 m2 (mL/min/1.73m2) Glucose (74-106) mg/dL Hemoglobin A1c (<5.7) % Calcium (8.5-10.1) mg/dL Phosphorus (2.6-4.7) mg/dL Magnesium (1.8-2.4) mg/dL Total Bilirubin (0.2-1.0) mg/dL GGT (5-55) U/L AST (15-37) U/L ALT (14-59) U/L Alkaline Phosphatase (46-116) U/L C-Reactive Protein (0.0-0.3) mg/dL Total Protein (6.4-8.2) g/dL Albumin (3.4-5.0) g/dL Prealbumin (20-40) mg/dL Vitamin B12 (193-986) pg/mL 25-OH Vitamin D Total (30-100) ng/mL Folate (8.6-20.0) ng/mL Procalcitonin ng/mL 0.1 TSH (0.36-3.74) uIU/mL < 0.01 L Free T4 (0.76-1.46) ng/dL 2.75 H Total T3 (97-169) ng/dL 166 Thyroid Stim Immunoglob (<=1.3) TSI index Urine Color (Yellow) Urine Clarity (Clear) Urine pH (5-8) Ur Specific [place] (1.005-1.025) Urine Protein (Negative) mg/dL Urine Ketones (Negative) mg/dL Urine Blood (Negative) Urine Nitrite (Negative) Urine Bilirubin (Negative) Urine Urobilinogen (Up TO 0.2) EU/dL Ur Leukocyte Esterase (Negative) Urine RBC (0-2) HPF Urine WBC (0-5) HPF Ur Epithelial Cells (Negative) HPF Urine Crystals (Negative) HPF Urine Bacteria (Negative) HPF Urine Casts (Negative) LPF Urine Mucus (Negative) Urine Other (Negative) Ur Culture Indicated? Urine Glucose (Negative) mg/dL Stool Calprotectin mcg/g Vancomycin Trough (10.0-20.0) ug/mL Urine Opiates Screen (Negative) Urine Methadone Screen (Negative) Ur Barbiturates Screen (Negative) Ur Tricyclics Screen (Negative) Ur Amphetamines Screen (Negative) U Benzodiazepines Scrn (Negative) Urine Cocaine Screen (Negative) Ur THC Screen (Negative) NINI Titer NINI Titer 2 NINI Titer 3 NINI Interpretation (Negative) Thyroperoxidase Ab (<=60) IU/mL <28 Thyroglobulin Antibody (<=60) IU/mL <15 COVID-19 Source SARS-CoV-2 (PCR) Hep Bs Antigen (Negative) Hep Bs Antibody (See Note) Hep Bs Antibody, Quant (See Note) mIU/mL Hep B Core Total Ab (Negative) Hepatitis C Antibody (Negative) HIV 1&2 Ag/Ab, 4th Gen (Negative) Add-On Test Request Patient ABO/Rh Antibody Screen Range/Units 11/14/21 11/15/21 11/15/21 10:43 06:42 06:42 WBC (4.4-10.8) 10^3/uL 11.74 H RBC (3.93-5.22) 10^6/uL 3.66 L Hgb (11.2-15.7) g/dL 9.5 L Hct (36.0-46.0) % 31.9 L MCV (80-95) fL 87.2 MCH (27.0-33.0) pg 26.0 L MCHC (32.0-36.0) % 29.8 L RDW (11.7-14.6) % 16.7 H Plt Count (130-400) 10^3/uL 399 MPV (8.0-11.0) fL 9.3 Immature Gran % 0.3 Neutrophils % 81.4 Band Neutrophils % Lymphocytes % 12.1 Monocytes % 4.6 Eosinophils % 1.3 Basophils % 0.3 Nucleated RBC % % 0 Absolute Neutrophils (1.2-6.7) 10^3/uL 9.56 H Absolute Lymphocytes (1.2-3.4) 10^3/uL 1.42 Absolute Monocytes (0.1-0.8) 10^3/uL 0.54 Absolute Eosinophils (0.0-0.7) 10^3/uL 0.15 Absolute Basophils (0.0-0.2) 10^3/uL 0.04 RBC Morphology ESR (0-20) mm/hr D-Dimer (<500) ng/mlFEU VBG Lactate (0.6-1.4) mmol/L Sodium (136-145) mmol/L 141 Potassium (3.5-5.1) mmol/L 3.4 L Chloride (98-107) mmol/L 110 H Carbon Dioxide (21.0-32.0) mmol/L 24.4 Anion Gap (3-11) mmol/L 6.6 BUN (7-18) mg/dL 11 Creatinine (0.55-1.02) mg/dL 0.4 L Estimated GFR/1.73 m2 (mL/min/1.73m2) >= 60.00 Glucose (74-106) mg/dL 98 Hemoglobin A1c (<5.7) % Calcium (8.5-10.1) mg/dL 8.5 Phosphorus (2.6-4.7) mg/dL Magnesium (1.8-2.4) mg/dL 1.6 L Total Bilirubin (0.2-1.0) mg/dL GGT (5-55) U/L AST (15-37) U/L ALT (14-59) U/L Alkaline Phosphatase (46-116) U/L C-Reactive Protein (0.0-0.3) mg/dL 11.77 H Total Protein (6.4-8.2) g/dL Albumin (3.4-5.0) g/dL Prealbumin (20-40) mg/dL Vitamin B12 (193-986) pg/mL 25-OH Vitamin D Total (30-100) ng/mL Folate (8.6-20.0) ng/mL Procalcitonin ng/mL TSH (0.36-3.74) uIU/mL Free T4 (0.76-1.46) ng/dL Total T3 (97-169) ng/dL Thyroid Stim Immunoglob (<=1.3) TSI index Urine Color (Yellow) Urine Clarity (Clear) Urine pH (5-8) Ur Specific [place] (1.005-1.025) Urine Protein (Negative) mg/dL Urine Ketones (Negative) mg/dL Urine Blood (Negative) Urine Nitrite (Negative) Urine Bilirubin (Negative) Urine Urobilinogen (Up TO 0.2) EU/dL Ur Leukocyte Esterase (Negative) Urine RBC (0-2) HPF Urine WBC (0-5) HPF Ur Epithelial Cells (Negative) HPF Urine Crystals (Negative) HPF Urine Bacteria (Negative) HPF Urine Casts (Negative) LPF Urine Mucus (Negative) Urine Other (Negative) Ur Culture Indicated? Urine Glucose (Negative) mg/dL Stool Calprotectin mcg/g Vancomycin Trough (10.0-20.0) ug/mL 13.0 Urine Opiates Screen (Negative) Urine Methadone Screen (Negative) Ur Barbiturates Screen (Negative) Ur Tricyclics Screen (Negative) Ur Amphetamines Screen (Negative) U Benzodiazepines Scrn (Negative) Urine Cocaine Screen (Negative) Ur THC Screen (Negative) NINI Titer NINI Titer 2 NINI Titer 3 NINI Interpretation (Negative) Thyroperoxidase Ab (<=60) IU/mL Thyroglobulin Antibody (<=60) IU/mL COVID-19 Source SARS-CoV-2 (PCR) Hep Bs Antigen (Negative) Hep Bs Antibody (See Note) Hep Bs Antibody, Quant (See Note) mIU/mL Hep B Core Total Ab (Negative) Hepatitis C Antibody (Negative) HIV 1&2 Ag/Ab, 4th Gen (Negative) Add-On Test Request Patient ABO/Rh Antibody Screen Range/Units 11/15/21 11/15/21 11/15/21 06:42 06:42 13:52 WBC (4.4-10.8) 10^3/uL RBC (3.93-5.22) 10^6/uL Hgb (11.2-15.7) g/dL Hct (36.0-46.0) % MCV (80-95) fL MCH (27.0-33.0) pg MCHC (32.0-36.0) % RDW (11.7-14.6) % Plt Count (130-400) 10^3/uL MPV (8.0-11.0) fL Immature Gran % Neutrophils % Band Neutrophils % Lymphocytes % Monocytes % Eosinophils % Basophils % Nucleated RBC % % Absolute Neutrophils (1.2-6.7) 10^3/uL Absolute Lymphocytes (1.2-3.4) 10^3/uL Absolute Monocytes (0.1-0.8) 10^3/uL Absolute Eosinophils (0.0-0.7) 10^3/uL Absolute Basophils (0.0-0.2) 10^3/uL RBC Morphology ESR (0-20) mm/hr D-Dimer (<500) ng/mlFEU VBG Lactate (0.6-1.4) mmol/L Sodium (136-145) mmol/L Potassium (3.5-5.1) mmol/L Chloride (98-107) mmol/L Carbon Dioxide (21.0-32.0) mmol/L Anion Gap (3-11) mmol/L BUN (7-18) mg/dL Creatinine (0.55-1.02) mg/dL Estimated GFR/1.73 m2 (mL/min/1.73m2) Glucose (74-106) mg/dL Hemoglobin A1c (<5.7) % Calcium (8.5-10.1) mg/dL Phosphorus (2.6-4.7) mg/dL Magnesium (1.8-2.4) mg/dL Total Bilirubin (0.2-1.0) mg/dL GGT (5-55) U/L AST (15-37) U/L ALT (14-59) U/L Alkaline Phosphatase (46-116) U/L C-Reactive Protein (0.0-0.3) mg/dL Total Protein (6.4-8.2) g/dL Albumin (3.4-5.0) g/dL Prealbumin (20-40) mg/dL Vitamin B12 (193-986) pg/mL 25-OH Vitamin D Total (30-100) ng/mL Folate (8.6-20.0) ng/mL Procalcitonin ng/mL TSH (0.36-3.74) uIU/mL Free T4 (0.76-1.46) ng/dL Total T3 (97-169) ng/dL Thyroid Stim Immunoglob (<=1.3) TSI index <1.0 Urine Color (Yellow) Urine Clarity (Clear) Urine pH (5-8) Ur Specific [place] (1.005-1.025) Urine Protein (Negative) mg/dL Urine Ketones (Negative) mg/dL Urine Blood (Negative) Urine Nitrite (Negative) Urine Bilirubin (Negative) Urine Urobilinogen (Up TO 0.2) EU/dL Ur Leukocyte Esterase (Negative) Urine RBC (0-2) HPF Urine WBC (0-5) HPF Ur Epithelial Cells (Negative) HPF Urine Crystals (Negative) HPF Urine Bacteria (Negative) HPF Urine Casts (Negative) LPF Urine Mucus (Negative) Urine Other (Negative) Ur Culture Indicated? Urine Glucose (Negative) mg/dL Stool Calprotectin mcg/g 352 H Vancomycin Trough (10.0-20.0) ug/mL Urine Opiates Screen (Negative) Urine Methadone Screen (Negative) Ur Barbiturates Screen (Negative) Ur Tricyclics Screen (Negative) Ur Amphetamines Screen (Negative) U Benzodiazepines Scrn (Negative) Urine Cocaine Screen (Negative) Ur THC Screen (Negative) NINI Titer NINI Titer 2 NINI Titer 3 NINI Interpretation (Negative) Thyroperoxidase Ab (<=60) IU/mL Thyroglobulin Antibody (<=60) IU/mL COVID-19 Source SARS-CoV-2 (PCR) Hep Bs Antigen (Negative) Hep Bs Antibody (See Note) Hep Bs Antibody, Quant (See Note) mIU/mL Hep B Core Total Ab (Negative) Hepatitis C Antibody (Negative) HIV 1&2 Ag/Ab, 4th Gen (Negative) Add-On Test Request DONE Patient ABO/Rh Antibody Screen Range/Units 11/15/21 11/16/21 11/16/21 16:00 06:32 06:32 WBC (4.4-10.8) 10^3/uL 9.52 RBC (3.93-5.22) 10^6/uL 3.51 L Hgb (11.2-15.7) g/dL 9.2 L Hct (36.0-46.0) % 30.1 L MCV (80-95) fL 85.8 MCH (27.0-33.0) pg 26.2 L MCHC (32.0-36.0) % 30.6 L RDW (11.7-14.6) % 16.7 H Plt Count (130-400) 10^3/uL 394 MPV (8.0-11.0) fL 9.4 Immature Gran % 0.3 Neutrophils % 73.4 Band Neutrophils % Lymphocytes % 16.1 Monocytes % 5.6 Eosinophils % 4.3 Basophils % 0.3 Nucleated RBC % % 0 Absolute Neutrophils (1.2-6.7) 10^3/uL 6.99 H Absolute Lymphocytes (1.2-3.4) 10^3/uL 1.53 Absolute Monocytes (0.1-0.8) 10^3/uL 0.53 Absolute Eosinophils (0.0-0.7) 10^3/uL 0.41 Absolute Basophils (0.0-0.2) 10^3/uL 0.03 RBC Morphology ESR (0-20) mm/hr D-Dimer (<500) ng/mlFEU VBG Lactate (0.6-1.4) mmol/L Sodium (136-145) mmol/L 142 Potassium (3.5-5.1) mmol/L 3.6 Chloride (98-107) mmol/L 109 H Carbon Dioxide (21.0-32.0) mmol/L 26.7 Anion Gap (3-11) mmol/L 6.3 BUN (7-18) mg/dL 9 Creatinine (0.55-1.02) mg/dL 0.4 L Estimated GFR/1.73 m2 (mL/min/1.73m2) >= 60.00 Glucose (74-106) mg/dL 87 Hemoglobin A1c (<5.7) % Calcium (8.5-10.1) mg/dL 8.6 Phosphorus (2.6-4.7) mg/dL Magnesium (1.8-2.4) mg/dL 1.6 L Total Bilirubin (0.2-1.0) mg/dL GGT (5-55) U/L AST (15-37) U/L ALT (14-59) U/L Alkaline Phosphatase (46-116) U/L C-Reactive Protein (0.0-0.3) mg/dL 10.44 H Total Protein (6.4-8.2) g/dL Albumin (3.4-5.0) g/dL Prealbumin (20-40) mg/dL Vitamin B12 (193-986) pg/mL 25-OH Vitamin D Total (30-100) ng/mL Folate (8.6-20.0) ng/mL Procalcitonin ng/mL TSH (0.36-3.74) uIU/mL Free T4 (0.76-1.46) ng/dL Total T3 (97-169) ng/dL Thyroid Stim Immunoglob (<=1.3) TSI index Urine Color (Yellow) Urine Clarity (Clear) Urine pH (5-8) Ur Specific [place] (1.005-1.025) Urine Protein (Negative) mg/dL Urine Ketones (Negative) mg/dL Urine Blood (Negative) Urine Nitrite (Negative) Urine Bilirubin (Negative) Urine Urobilinogen (Up TO 0.2) EU/dL Ur Leukocyte Esterase (Negative) Urine RBC (0-2) HPF Urine WBC (0-5) HPF Ur Epithelial Cells (Negative) HPF Urine Crystals (Negative) HPF Urine Bacteria (Negative) HPF Urine Casts (Negative) LPF Urine Mucus (Negative) Urine Other (Negative) Ur Culture Indicated? Urine Glucose (Negative) mg/dL Stool Calprotectin mcg/g Vancomycin Trough (10.0-20.0) ug/mL Cancelled Urine Opiates Screen (Negative) Urine Methadone Screen (Negative) Ur Barbiturates Screen (Negative) Ur Tricyclics Screen (Negative) Ur Amphetamines Screen (Negative) U Benzodiazepines Scrn (Negative) Urine Cocaine Screen (Negative) Ur THC Screen (Negative) NINI Titer NINI Titer 2 NINI Titer 3 NINI Interpretation (Negative) Thyroperoxidase Ab (<=60) IU/mL Thyroglobulin Antibody (<=60) IU/mL COVID-19 Source SARS-CoV-2 (PCR) Hep Bs Antigen (Negative) Hep Bs Antibody (See Note) Hep Bs Antibody, Quant (See Note) mIU/mL Hep B Core Total Ab (Negative) Hepatitis C Antibody (Negative) HIV 1&2 Ag/Ab, 4th Gen (Negative) Add-On Test Request Patient ABO/Rh Antibody Screen Range/Units 11/17/21 11/17/21 11/17/21 06:02 06:02 06:02 WBC (4.4-10.8) 10^3/uL 8.09 RBC (3.93-5.22) 10^6/uL 3.64 L Hgb (11.2-15.7) g/dL 9.5 L Hct (36.0-46.0) % 30.9 L MCV (80-95) fL 84.9 MCH (27.0-33.0) pg 26.1 L MCHC (32.0-36.0) % 30.7 L RDW (11.7-14.6) % 16.8 H Plt Count (130-400) 10^3/uL 395 MPV (8.0-11.0) fL 9.1 Immature Gran % 0.1 Neutrophils % 70.2 Band Neutrophils % Lymphocytes % 18.5 Monocytes % 5.8 Eosinophils % 5.3 Basophils % 0.1 Nucleated RBC % % 0 Absolute Neutrophils (1.2-6.7) 10^3/uL 5.67 Absolute Lymphocytes (1.2-3.4) 10^3/uL 1.50 Absolute Monocytes (0.1-0.8) 10^3/uL 0.47 Absolute Eosinophils (0.0-0.7) 10^3/uL 0.43 Absolute Basophils (0.0-0.2) 10^3/uL 0.01 RBC Morphology ESR (0-20) mm/hr D-Dimer (<500) ng/mlFEU VBG Lactate (0.6-1.4) mmol/L Sodium (136-145) mmol/L Potassium (3.5-5.1) mmol/L Chloride (98-107) mmol/L Carbon Dioxide (21.0-32.0) mmol/L Anion Gap (3-11) mmol/L BUN (7-18) mg/dL Creatinine (0.55-1.02) mg/dL Estimated GFR/1.73 m2 (mL/min/1.73m2) Glucose (74-106) mg/dL Hemoglobin A1c (<5.7) % Calcium (8.5-10.1) mg/dL Phosphorus (2.6-4.7) mg/dL Magnesium (1.8-2.4) mg/dL 2.0 Total Bilirubin (0.2-1.0) mg/dL GGT (5-55) U/L AST (15-37) U/L ALT (14-59) U/L Alkaline Phosphatase (46-116) U/L C-Reactive Protein (0.0-0.3) mg/dL 8.33 H Total Protein (6.4-8.2) g/dL Albumin (3.4-5.0) g/dL Prealbumin (20-40) mg/dL 7 L Vitamin B12 (193-986) pg/mL 25-OH Vitamin D Total (30-100) ng/mL Folate (8.6-20.0) ng/mL Procalcitonin ng/mL TSH (0.36-3.74) uIU/mL Free T4 (0.76-1.46) ng/dL Total T3 (97-169) ng/dL Thyroid Stim Immunoglob (<=1.3) TSI index Urine Color (Yellow) Urine Clarity (Clear) Urine pH (5-8) Ur Specific [place] (1.005-1.025) Urine Protein (Negative) mg/dL Urine Ketones (Negative) mg/dL Urine Blood (Negative) Urine Nitrite (Negative) Urine Bilirubin (Negative) Urine Urobilinogen (Up TO 0.2) EU/dL Ur Leukocyte Esterase (Negative) Urine RBC (0-2) HPF Urine WBC (0-5) HPF Ur Epithelial Cells (Negative) HPF Urine Crystals (Negative) HPF Urine Bacteria (Negative) HPF Urine Casts (Negative) LPF Urine Mucus (Negative) Urine Other (Negative) Ur Culture Indicated? Urine Glucose (Negative) mg/dL Stool Calprotectin mcg/g Vancomycin Trough (10.0-20.0) ug/mL Urine Opiates Screen (Negative) Urine Methadone Screen (Negative) Ur Barbiturates Screen (Negative) Ur Tricyclics Screen (Negative) Ur Amphetamines Screen (Negative) U Benzodiazepines Scrn (Negative) Urine Cocaine Screen (Negative) Ur THC Screen (Negative) NINI Titer NINI Titer 2 NINI Titer 3 NINI Interpretation (Negative) Thyroperoxidase Ab (<=60) IU/mL Thyroglobulin Antibody (<=60) IU/mL COVID-19 Source SARS-CoV-2 (PCR) Hep Bs Antigen (Negative) Hep Bs Antibody (See Note) Hep Bs Antibody, Quant (See Note) mIU/mL Hep B Core Total Ab (Negative) Hepatitis C Antibody (Negative) HIV 1&2 Ag/Ab, 4th Gen (Negative) Add-On Test Request Patient ABO/Rh Antibody Screen Range/Units 11/17/21 11/19/21 11/19/21 06:02 06:30 06:30 WBC (4.4-10.8) 10^3/uL 10.95 H RBC (3.93-5.22) 10^6/uL 3.66 L Hgb (11.2-15.7) g/dL 9.6 L Hct (36.0-46.0) % 30.9 L MCV (80-95) fL 84.4 MCH (27.0-33.0) pg 26.2 L MCHC (32.0-36.0) % 31.1 L RDW (11.7-14.6) % 16.7 H Plt Count (130-400) 10^3/uL 529 H MPV (8.0-11.0) fL 9.2 Immature Gran % 0.3 Neutrophils % 67.3 Band Neutrophils % Lymphocytes % 20.9 Monocytes % 5.1 Eosinophils % 6.1 Basophils % 0.3 Nucleated RBC % % 0 Absolute Neutrophils (1.2-6.7) 10^3/uL 7.37 H Absolute Lymphocytes (1.2-3.4) 10^3/uL 2.29 Absolute Monocytes (0.1-0.8) 10^3/uL 0.56 Absolute Eosinophils (0.0-0.7) 10^3/uL 0.67 Absolute Basophils (0.0-0.2) 10^3/uL 0.03 RBC Morphology ESR (0-20) mm/hr D-Dimer (<500) ng/mlFEU VBG Lactate (0.6-1.4) mmol/L Sodium (136-145) mmol/L 140 139 Potassium (3.5-5.1) mmol/L 4.1 4.2 Chloride (98-107) mmol/L 107 104 Carbon Dioxide (21.0-32.0) mmol/L 28.4 29.8 Anion Gap (3-11) mmol/L 4.6 5.2 BUN (7-18) mg/dL 11 22 H D Creatinine (0.55-1.02) mg/dL 0.5 L 0.5 L Estimated GFR/1.73 m2 (mL/min/1.73m2) >= 60.00 >= 60.00 Glucose (74-106) mg/dL 81 88 Hemoglobin A1c (<5.7) % Calcium (8.5-10.1) mg/dL 8.7 8.9 Phosphorus (2.6-4.7) mg/dL Magnesium (1.8-2.4) mg/dL Total Bilirubin (0.2-1.0) mg/dL 0.1 L GGT (5-55) U/L AST (15-37) U/L 21 ALT (14-59) U/L 16 Alkaline Phosphatase (46-116) U/L 107 C-Reactive Protein (0.0-0.3) mg/dL 5.05 H Total Protein (6.4-8.2) g/dL 7.1 Albumin (3.4-5.0) g/dL 1.8 L Prealbumin (20-40) mg/dL Vitamin B12 (193-986) pg/mL 25-OH Vitamin D Total (30-100) ng/mL Folate (8.6-20.0) ng/mL Procalcitonin ng/mL TSH (0.36-3.74) uIU/mL Free T4 (0.76-1.46) ng/dL Total T3 (97-169) ng/dL Thyroid Stim Immunoglob (<=1.3) TSI index Urine Color (Yellow) Urine Clarity (Clear) Urine pH (5-8) Ur Specific [place] (1.005-1.025) Urine Protein (Negative) mg/dL Urine Ketones (Negative) mg/dL Urine Blood (Negative) Urine Nitrite (Negative) Urine Bilirubin (Negative) Urine Urobilinogen (Up TO 0.2) EU/dL Ur Leukocyte Esterase (Negative) Urine RBC (0-2) HPF Urine WBC (0-5) HPF Ur Epithelial Cells (Negative) HPF Urine Crystals (Negative) HPF Urine Bacteria (Negative) HPF Urine Casts (Negative) LPF Urine Mucus (Negative) Urine Other (Negative) Ur Culture Indicated? Urine Glucose (Negative) mg/dL Stool Calprotectin mcg/g Vancomycin Trough (10.0-20.0) ug/mL Urine Opiates Screen (Negative) Urine Methadone Screen (Negative) Ur Barbiturates Screen (Negative) Ur Tricyclics Screen (Negative) Ur Amphetamines Screen (Negative) U Benzodiazepines Scrn (Negative) Urine Cocaine Screen (Negative) Ur THC Screen (Negative) NINI Titer NINI Titer 2 NINI Titer 3 NINI Interpretation (Negative) Thyroperoxidase Ab (<=60) IU/mL Thyroglobulin Antibody (<=60) IU/mL COVID-19 Source SARS-CoV-2 (PCR) Hep Bs Antigen (Negative) Hep Bs Antibody (See Note) Hep Bs Antibody, Quant (See Note) mIU/mL Hep B Core Total Ab (Negative) Hepatitis C Antibody (Negative) HIV 1&2 Ag/Ab, 4th Gen (Negative) Add-On Test Request Patient ABO/Rh Antibody Screen Range/Units 11/22/21 11/22/21 11/22/21 11:20 19:00 Unknown WBC (4.4-10.8) 10^3/uL 18.78 H RBC (3.93-5.22) 10^6/uL 3.36 L Hgb (11.2-15.7) g/dL 8.8 L Hct (36.0-46.0) % 29.8 L MCV (80-95) fL 88.7 MCH (27.0-33.0) pg 26.2 L MCHC (32.0-36.0) % 29.5 L RDW (11.7-14.6) % 17.2 H Plt Count (130-400) 10^3/uL 650 H MPV (8.0-11.0) fL 9.2 Immature Gran % Neutrophils % Band Neutrophils % Lymphocytes % Monocytes % Eosinophils % Basophils % Nucleated RBC % % Absolute Neutrophils (1.2-6.7) 10^3/uL Absolute Lymphocytes (1.2-3.4) 10^3/uL Absolute Monocytes (0.1-0.8) 10^3/uL Absolute Eosinophils (0.0-0.7) 10^3/uL Absolute Basophils (0.0-0.2) 10^3/uL RBC Morphology ESR (0-20) mm/hr D-Dimer (<500) ng/mlFEU VBG Lactate (0.6-1.4) mmol/L Sodium (136-145) mmol/L Potassium (3.5-5.1) mmol/L Chloride (98-107) mmol/L Carbon Dioxide (21.0-32.0) mmol/L Anion Gap (3-11) mmol/L BUN (7-18) mg/dL Creatinine (0.55-1.02) mg/dL Estimated GFR/1.73 m2 (mL/min/1.73m2) Glucose (74-106) mg/dL Hemoglobin A1c (<5.7) % Calcium (8.5-10.1) mg/dL Phosphorus (2.6-4.7) mg/dL Magnesium (1.8-2.4) mg/dL Total Bilirubin (0.2-1.0) mg/dL GGT (5-55) U/L AST (15-37) U/L ALT (14-59) U/L Alkaline Phosphatase (46-116) U/L C-Reactive Protein (0.0-0.3) mg/dL Total Protein (6.4-8.2) g/dL Albumin (3.4-5.0) g/dL Prealbumin (20-40) mg/dL Vitamin B12 (193-986) pg/mL 25-OH Vitamin D Total (30-100) ng/mL Folate (8.6-20.0) ng/mL Procalcitonin ng/mL TSH (0.36-3.74) uIU/mL Free T4 (0.76-1.46) ng/dL Total T3 (97-169) ng/dL Thyroid Stim Immunoglob (<=1.3) TSI index Urine Color (Yellow) Yellow Urine Clarity (Clear) Sl Cloudy Urine pH (5-8) 7.0 Ur Specific [place] (1.005-1.025) 1.025 Urine Protein (Negative) mg/dL Trace H Urine Ketones (Negative) mg/dL Negative Urine Blood (Negative) Large H Urine Nitrite (Negative) Negative Urine Bilirubin (Negative) Negative Urine Urobilinogen (Up TO 0.2) EU/dL 0.2 Ur Leukocyte Esterase (Negative) Negative Urine RBC (0-2) HPF >50 H Urine WBC (0-5) HPF 5-10 Ur Epithelial Cells (Negative) HPF Negative Urine Crystals (Negative) HPF Negative Urine Bacteria (Negative) HPF Negative Urine Casts (Negative) LPF Negative Urine Mucus (Negative) Negative Urine Other (Negative) Negative Ur Culture Indicated? Yes Urine Glucose (Negative) mg/dL Negative Stool Calprotectin mcg/g Vancomycin Trough (10.0-20.0) ug/mL Urine Opiates Screen (Negative) Urine Methadone Screen (Negative) Ur Barbiturates Screen (Negative) Ur Tricyclics Screen (Negative) Ur Amphetamines Screen (Negative) U Benzodiazepines Scrn (Negative) Urine Cocaine Screen (Negative) Ur THC Screen (Negative) NINI Titer NINI Titer 2 NINI Titer 3 NINI Interpretation (Negative) Thyroperoxidase Ab (<=60) IU/mL Thyroglobulin Antibody (<=60) IU/mL COVID-19 Source SARS-CoV-2 (PCR) Hep Bs Antigen (Negative) Hep Bs Antibody (See Note) Hep Bs Antibody, Quant (See Note) mIU/mL Hep B Core Total Ab (Negative) Hepatitis C Antibody (Negative) HIV 1&2 Ag/Ab, 4th Gen (Negative) Add-On Test Request TNP Patient ABO/Rh Antibody Screen Range/Units 11/23/21 11/23/21 11/23/21 06:45 06:45 06:45 WBC (4.4-10.8) 10^3/uL RBC (3.93-5.22) 10^6/uL Hgb (11.2-15.7) g/dL Hct (36.0-46.0) % MCV (80-95) fL MCH (27.0-33.0) pg MCHC (32.0-36.0) % RDW (11.7-14.6) % Plt Count (130-400) 10^3/uL MPV (8.0-11.0) fL Immature Gran % Neutrophils % Band Neutrophils % Lymphocytes % Monocytes % Eosinophils % Basophils % Nucleated RBC % % Absolute Neutrophils (1.2-6.7) 10^3/uL Absolute Lymphocytes (1.2-3.4) 10^3/uL Absolute Monocytes (0.1-0.8) 10^3/uL Absolute Eosinophils (0.0-0.7) 10^3/uL Absolute Basophils (0.0-0.2) 10^3/uL RBC Morphology ESR (0-20) mm/hr D-Dimer (<500) ng/mlFEU 599 H VBG Lactate (0.6-1.4) mmol/L Sodium (136-145) mmol/L Potassium (3.5-5.1) mmol/L Chloride (98-107) mmol/L Carbon Dioxide (21.0-32.0) mmol/L Anion Gap (3-11) mmol/L BUN (7-18) mg/dL Creatinine (0.55-1.02) mg/dL Estimated GFR/1.73 m2 (mL/min/1.73m2) Glucose (74-106) mg/dL Hemoglobin A1c (<5.7) % Calcium (8.5-10.1) mg/dL Phosphorus (2.6-4.7) mg/dL Magnesium (1.8-2.4) mg/dL Total Bilirubin (0.2-1.0) mg/dL GGT (5-55) U/L AST (15-37) U/L ALT (14-59) U/L Alkaline Phosphatase (46-116) U/L C-Reactive Protein (0.0-0.3) mg/dL Total Protein (6.4-8.2) g/dL Albumin (3.4-5.0) g/dL 1.7 L Prealbumin (20-40) mg/dL Vitamin B12 (193-986) pg/mL 25-OH Vitamin D Total (30-100) ng/mL Folate (8.6-20.0) ng/mL Procalcitonin ng/mL TSH (0.36-3.74) uIU/mL < 0.01 L Free T4 (0.76-1.46) ng/dL 0.97 Total T3 (97-169) ng/dL Thyroid Stim Immunoglob (<=1.3) TSI index Urine Color (Yellow) Urine Clarity (Clear) Urine pH (5-8) Ur Specific [place] (1.005-1.025) Urine Protein (Negative) mg/dL Urine Ketones (Negative) mg/dL Urine Blood (Negative) Urine Nitrite (Negative) Urine Bilirubin (Negative) Urine Urobilinogen (Up TO 0.2) EU/dL Ur Leukocyte Esterase (Negative) Urine RBC (0-2) HPF Urine WBC (0-5) HPF Ur Epithelial Cells (Negative) HPF Urine Crystals (Negative) HPF Urine Bacteria (Negative) HPF Urine Casts (Negative) LPF Urine Mucus (Negative) Urine Other (Negative) Ur Culture Indicated? Urine Glucose (Negative) mg/dL Stool Calprotectin mcg/g Vancomycin Trough (10.0-20.0) ug/mL Urine Opiates Screen (Negative) Urine Methadone Screen (Negative) Ur Barbiturates Screen (Negative) Ur Tricyclics Screen (Negative) Ur Amphetamines Screen (Negative) U Benzodiazepines Scrn (Negative) Urine Cocaine Screen (Negative) Ur THC Screen (Negative) NINI Titer NINI Titer 2 NINI Titer 3 NINI Interpretation (Negative) Thyroperoxidase Ab (<=60) IU/mL Thyroglobulin Antibody (<=60) IU/mL COVID-19 Source SARS-CoV-2 (PCR) Hep Bs Antigen (Negative) Hep Bs Antibody (See Note) Hep Bs Antibody, Quant (See Note) mIU/mL Hep B Core Total Ab (Negative) Hepatitis C Antibody (Negative) HIV 1&2 Ag/Ab, 4th Gen (Negative) Add-On Test Request Patient ABO/Rh Antibody Screen Range/Units 11/23/21 11/23/21 11/23/21 06:45 06:45 06:45 WBC (4.4-10.8) 10^3/uL RBC (3.93-5.22) 10^6/uL Hgb (11.2-15.7) g/dL Hct (36.0-46.0) % MCV (80-95) fL MCH (27.0-33.0) pg MCHC (32.0-36.0) % RDW (11.7-14.6) % Plt Count (130-400) 10^3/uL MPV (8.0-11.0) fL Immature Gran % Neutrophils % Band Neutrophils % Lymphocytes % Monocytes % Eosinophils % Basophils % Nucleated RBC % % Absolute Neutrophils (1.2-6.7) 10^3/uL Absolute Lymphocytes (1.2-3.4) 10^3/uL Absolute Monocytes (0.1-0.8) 10^3/uL Absolute Eosinophils (0.0-0.7) 10^3/uL Absolute Basophils (0.0-0.2) 10^3/uL RBC Morphology ESR (0-20) mm/hr D-Dimer (<500) ng/mlFEU VBG Lactate (0.6-1.4) mmol/L Sodium (136-145) mmol/L Potassium (3.5-5.1) mmol/L Chloride (98-107) mmol/L Carbon Dioxide (21.0-32.0) mmol/L Anion Gap (3-11) mmol/L BUN (7-18) mg/dL Creatinine (0.55-1.02) mg/dL Estimated GFR/1.73 m2 (mL/min/1.73m2) Glucose (74-106) mg/dL Hemoglobin A1c (<5.7) % Calcium (8.5-10.1) mg/dL Phosphorus (2.6-4.7) mg/dL Magnesium (1.8-2.4) mg/dL Total Bilirubin (0.2-1.0) mg/dL GGT (5-55) U/L AST (15-37) U/L ALT (14-59) U/L Alkaline Phosphatase (46-116) U/L C-Reactive Protein (0.0-0.3) mg/dL 11.42 H Total Protein (6.4-8.2) g/dL Albumin (3.4-5.0) g/dL Prealbumin (20-40) mg/dL Vitamin B12 (193-986) pg/mL 25-OH Vitamin D Total (30-100) ng/mL Folate (8.6-20.0) ng/mL Procalcitonin ng/mL 0.2 TSH (0.36-3.74) uIU/mL Free T4 (0.76-1.46) ng/dL Total T3 (97-169) ng/dL Thyroid Stim Immunoglob (<=1.3) TSI index Urine Color (Yellow) Urine Clarity (Clear) Urine pH (5-8) Ur Specific [place] (1.005-1.025) Urine Protein (Negative) mg/dL Urine Ketones (Negative) mg/dL Urine Blood (Negative) Urine Nitrite (Negative) Urine Bilirubin (Negative) Urine Urobilinogen (Up TO 0.2) EU/dL Ur Leukocyte Esterase (Negative) Urine RBC (0-2) HPF Urine WBC (0-5) HPF Ur Epithelial Cells (Negative) HPF Urine Crystals (Negative) HPF Urine Bacteria (Negative) HPF Urine Casts (Negative) LPF Urine Mucus (Negative) Urine Other (Negative) Ur Culture Indicated? Urine Glucose (Negative) mg/dL Stool Calprotectin mcg/g Vancomycin Trough (10.0-20.0) ug/mL Urine Opiates Screen (Negative) Urine Methadone Screen (Negative) Ur Barbiturates Screen (Negative) Ur Tricyclics Screen (Negative) Ur Amphetamines Screen (Negative) U Benzodiazepines Scrn (Negative) Urine Cocaine Screen (Negative) Ur THC Screen (Negative) NINI Titer NINI Titer 2 NINI Titer 3 NINI Interpretation (Negative) Thyroperoxidase Ab (<=60) IU/mL Thyroglobulin Antibody (<=60) IU/mL COVID-19 Source SARS-CoV-2 (PCR) Hep Bs Antigen (Negative) Hep Bs Antibody (See Note) Hep Bs Antibody, Quant (See Note) mIU/mL Hep B Core Total Ab (Negative) Hepatitis C Antibody (Negative) HIV 1&2 Ag/Ab, 4th Gen (Negative) Add-On Test Request Patient ABO/Rh O Negative Antibody Screen NEGATIVE Range/Units 11/24/21 11/24/21 11/26/21 08:00 08:00 07:30 WBC (4.4-10.8) 10^3/uL 9.78 RBC (3.93-5.22) 10^6/uL 3.47 L Hgb (11.2-15.7) g/dL 9.2 L Hct (36.0-46.0) % 30.5 L MCV (80-95) fL 87.9 MCH (27.0-33.0) pg 26.5 L MCHC (32.0-36.0) % 30.2 L RDW (11.7-14.6) % 18.0 H Plt Count (130-400) 10^3/uL 745 H MPV (8.0-11.0) fL 9.2 Immature Gran % 0.4 Neutrophils % 64.2 Band Neutrophils % Lymphocytes % 23.8 Monocytes % 6.1 Eosinophils % 4.9 Basophils % 0.6 Nucleated RBC % % 0 Absolute Neutrophils (1.2-6.7) 10^3/uL 6.27 Absolute Lymphocytes (1.2-3.4) 10^3/uL 2.33 Absolute Monocytes (0.1-0.8) 10^3/uL 0.60 Absolute Eosinophils (0.0-0.7) 10^3/uL 0.48 Absolute Basophils (0.0-0.2) 10^3/uL 0.06 RBC Morphology ESR (0-20) mm/hr D-Dimer (<500) ng/mlFEU VBG Lactate (0.6-1.4) mmol/L Sodium (136-145) mmol/L 141 140 Potassium (3.5-5.1) mmol/L 3.6 3.8 Chloride (98-107) mmol/L 105 106 Carbon Dioxide (21.0-32.0) mmol/L 28.7 26.7 Anion Gap (3-11) mmol/L 7.3 7.3 BUN (7-18) mg/dL 11 15 Creatinine (0.55-1.02) mg/dL 0.5 L 0.6 Estimated GFR/1.73 m2 (mL/min/1.73m2) >= 60.00 >= 60.00 Glucose (74-106) mg/dL 91 91 Hemoglobin A1c (<5.7) % Calcium (8.5-10.1) mg/dL 9.1 8.8 Phosphorus (2.6-4.7) mg/dL Magnesium (1.8-2.4) mg/dL Total Bilirubin (0.2-1.0) mg/dL 0.1 L 0.1 L GGT (5-55) U/L AST (15-37) U/L 17 19 ALT (14-59) U/L 12 L 12 L Alkaline Phosphatase (46-116) U/L 86 67 C-Reactive Protein (0.0-0.3) mg/dL Total Protein (6.4-8.2) g/dL 7.7 7.4 Albumin (3.4-5.0) g/dL 1.8 L 1.9 L Prealbumin (20-40) mg/dL Vitamin B12 (193-986) pg/mL 25-OH Vitamin D Total (30-100) ng/mL Folate (8.6-20.0) ng/mL Procalcitonin ng/mL TSH (0.36-3.74) uIU/mL Free T4 (0.76-1.46) ng/dL Total T3 (97-169) ng/dL Thyroid Stim Immunoglob (<=1.3) TSI index Urine Color (Yellow) Urine Clarity (Clear) Urine pH (5-8) Ur Specific [place] (1.005-1.025) Urine Protein (Negative) mg/dL Urine Ketones (Negative) mg/dL Urine Blood (Negative) Urine Nitrite (Negative) Urine Bilirubin (Negative) Urine Urobilinogen (Up TO 0.2) EU/dL Ur Leukocyte Esterase (Negative) Urine RBC (0-2) HPF Urine WBC (0-5) HPF Ur Epithelial Cells (Negative) HPF Urine Crystals (Negative) HPF Urine Bacteria (Negative) HPF Urine Casts (Negative) LPF Urine Mucus (Negative) Urine Other (Negative) Ur Culture Indicated? Urine Glucose (Negative) mg/dL Stool Calprotectin mcg/g Vancomycin Trough (10.0-20.0) ug/mL Urine Opiates Screen (Negative) Urine Methadone Screen (Negative) Ur Barbiturates Screen (Negative) Ur Tricyclics Screen (Negative) Ur Amphetamines Screen (Negative) U Benzodiazepines Scrn (Negative) Urine Cocaine Screen (Negative) Ur THC Screen (Negative) NINI Titer NINI Titer 2 NINI Titer 3 NINI Interpretation (Negative) Thyroperoxidase Ab (<=60) IU/mL Thyroglobulin Antibody (<=60) IU/mL COVID-19 Source SARS-CoV-2 (PCR) Hep Bs Antigen (Negative) Hep Bs Antibody (See Note) Hep Bs Antibody, Quant (See Note) mIU/mL Hep B Core Total Ab (Negative) Hepatitis C Antibody (Negative) HIV 1&2 Ag/Ab, 4th Gen (Negative) Add-On Test Request Patient ABO/Rh Antibody Screen Range/Units 11/26/21 07:30 WBC (4.4-10.8) 10^3/uL 9.23 RBC (3.93-5.22) 10^6/uL 3.50 L Hgb (11.2-15.7) g/dL 9.3 L Hct (36.0-46.0) % 30.6 L MCV (80-95) fL 87.4 MCH (27.0-33.0) pg 26.6 L MCHC (32.0-36.0) % 30.4 L RDW (11.7-14.6) % 18.4 H Plt Count (130-400) 10^3/uL 747 H MPV (8.0-11.0) fL 9.2 Immature Gran % 0.2 Neutrophils % 60.6 Band Neutrophils % Lymphocytes % 26.0 Monocytes % 9.2 Eosinophils % 3.0 Basophils % 1.0 Nucleated RBC % % 0 Absolute Neutrophils (1.2-6.7) 10^3/uL 5.59 Absolute Lymphocytes (1.2-3.4) 10^3/uL 2.40 Absolute Monocytes (0.1-0.8) 10^3/uL 0.85 H Absolute Eosinophils (0.0-0.7) 10^3/uL 0.28 Absolute Basophils (0.0-0.2) 10^3/uL 0.09 RBC Morphology ESR (0-20) mm/hr D-Dimer (<500) ng/mlFEU VBG Lactate (0.6-1.4) mmol/L Sodium (136-145) mmol/L Potassium (3.5-5.1) mmol/L Chloride (98-107) mmol/L Carbon Dioxide (21.0-32.0) mmol/L Anion Gap (3-11) mmol/L BUN (7-18) mg/dL Creatinine (0.55-1.02) mg/dL Estimated GFR/1.73 m2 (mL/min/1.73m2) Glucose (74-106) mg/dL Hemoglobin A1c (<5.7) % Calcium (8.5-10.1) mg/dL Phosphorus (2.6-4.7) mg/dL Magnesium (1.8-2.4) mg/dL Total Bilirubin (0.2-1.0) mg/dL GGT (5-55) U/L AST (15-37) U/L ALT (14-59) U/L Alkaline Phosphatase (46-116) U/L C-Reactive Protein (0.0-0.3) mg/dL Total Protein (6.4-8.2) g/dL Albumin (3.4-5.0) g/dL Prealbumin (20-40) mg/dL Vitamin B12 (193-986) pg/mL 25-OH Vitamin D Total (30-100) ng/mL Folate (8.6-20.0) ng/mL Procalcitonin ng/mL TSH (0.36-3.74) uIU/mL Free T4 (0.76-1.46) ng/dL Total T3 (97-169) ng/dL Thyroid Stim Immunoglob (<=1.3) TSI index Urine Color (Yellow) Urine Clarity (Clear) Urine pH (5-8) Ur Specific [place] (1.005-1.025) Urine Protein (Negative) mg/dL Urine Ketones (Negative) mg/dL Urine Blood (Negative) Urine Nitrite (Negative) Urine Bilirubin (Negative) Urine Urobilinogen (Up TO 0.2) EU/dL Ur Leukocyte Esterase (Negative) Urine RBC (0-2) HPF Urine WBC (0-5) HPF Ur Epithelial Cells (Negative) HPF Urine Crystals (Negative) HPF Urine Bacteria (Negative) HPF Urine Casts (Negative) LPF Urine Mucus (Negative) Urine Other (Negative) Ur Culture Indicated? Urine Glucose (Negative) mg/dL Stool Calprotectin mcg/g Vancomycin Trough (10.0-20.0) ug/mL Urine Opiates Screen (Negative) Urine Methadone Screen (Negative) Ur Barbiturates Screen (Negative) Ur Tricyclics Screen (Negative) Ur Amphetamines Screen (Negative) U Benzodiazepines Scrn (Negative) Urine Cocaine Screen (Negative) Ur THC Screen (Negative) NINI Titer NINI Titer 2 NINI Titer 3 NINI Interpretation (Negative) Thyroperoxidase Ab (<=60) IU/mL Thyroglobulin Antibody (<=60) IU/mL COVID-19 Source SARS-CoV-2 (PCR) Hep Bs Antigen (Negative) Hep Bs Antibody (See Note) Hep Bs Antibody, Quant (See Note) mIU/mL Hep B Core Total Ab (Negative) Hepatitis C Antibody (Negative) HIV 1&2 Ag/Ab, 4th Gen (Negative) Add-On Test Request Patient ABO/Rh Antibody Screen Imaging Chest x-ray: report reviewed and image reviewed CT scan - chest: report reviewed and image reviewed
[2021-11-27] MEDS: DULoxetine 20 MG CAP PO (08:37)
[2021-11-27] MEDS: Famotidine 20 MG TAB PO ×2 (08:38→20:31)
[2021-11-27] MEDS: Ascorbic Acid 500 MG TAB PO ×2 (08:38→20:31)
[2021-11-27] MEDS: Cyanocobalamin 500 MCG TAB 1000 MCG PO (08:38)
[2021-11-27] MEDS: Zinc Sulfate 220 MG TAB PO (08:38)
[2021-11-27] MEDS: traMADol 50 MG TAB PO ×2 (08:38→22:11)
[2021-11-27] MEDS: methIMAzole 5 MG TAB PO (08:38)
[2021-11-27] MEDS: Buprenorphine/Naloxone 8 mg/2 mg FILM 2 EACH SL (08:39)
[2021-11-27] MEDS: Buprenorphine/Naloxone 2 mg/0.5 mg FILM 1 EACH SL (08:39)
[2021-11-27] MEDS: Normal Saline Flush 10 ML SYR IVP ×3 (10:47→20:31)
[2021-11-27] MEDS: Gabapentin 300 MG CAP PO (14:04)
[2021-11-27 15:05] VITALS: BP 97/64; PULSE 81; RESP 18; TEMP 36.8; O2SAT 95
--- NOTE | 2021-11-27 15:49 | PT.INTREAT ---
PT Notes Visit Reasons: Dry,Gangrene RLE Inpatient Physical Therapy Treatment Note [facility] Date: 11/27/21 SUBJECTIVE: Nicol c/o increased burning around wound. She claims the vac is tighter than usual. OBJECTIVE: [] PAIN: wound pain BED MOBILITY/TRANSFERS Sit-stand: I Stand-sit:I GAIT Assistive Device: 4ww Weight bearing: WBAT Assist: S/SBA Distance: 175' Deviation:stopped and colored superintendent renting managing on wall in hallway x approx 5 min. ASSESSMENT: held ex today due to small leak in vac. Nsg was gong to reinforce it. Ambulates well without LOB or fatigue. She did have some c/o increased burning towards end of ambulation. PLAN: will continue to work on strength and endurance TREATMENT CODE/TIME: 15 min [id number]
[2021-11-27] MEDS: cefTRIAXone 2 GM/50 ML BAG IVPB (16:45)
--- NOTE | 2021-11-27 17:36 | CMPROGNOTE_ITS ---
- If Service Date Differs Date of service: 11/27/21 Time of Service: 17:36 Care Management Progress Note S/O: Nicol was sitting up in bed, talking on the phone with TERI when CM entered the room. She verbalized not wanting additional resources at this time, and stated she previously worked at [employer] and knew of local resources available. CM provided planting soil, pots and plant clippings as Niclo had requested, as well as music. Nicol also now has a puzzle table to do her puzzles on. She appeared in much better spirits today. Permission granted for in-person visit at [facility]-in library with staff [id number] only. CM reviewed details with Nicol who will continue to discuss with her due to psycho-social barriers. If the family is able to visit, Nicol will notify CM to coordinate visit in the library which will be overseen by CM. Her family will enter the library through the side door, and not have to be screened by sentry. Discussed plan with NOEMI Ch and YAN Posada. Per report, Nicol's surgery is postponed until and will then she will require three weeks of IV ABX. CM will continue to follow. A: 36 year old female admitted to [facility] on 11/13/21 for Dry, Gangrene RLE. P: Nicol will require IV abx and ongoing wound care for gangrenous wound(s) on her right ankle. Nicol will transition to SWB1 status when medically ready, until Surgery feels the area is able to accept a skin graft. CM will coordinate and support in person family visitation.
[2021-11-27] MEDS: Enoxaparin 40 MG/0.4 ML SYR SC (17:47)
[2021-11-27 20:45] VITALS: RESP 16; O2SAT 95
[2021-11-27] MEDS: Gabapentin 300 MG CAP 600 MG PO (22:10)
[2021-11-27 23:25] LABS: Legionella Ag Detection Urine Negative (Negative)
[2021-11-27 23:26] VITALS: BP 120/71; PULSE 87; RESP 16; TEMP 36.6; O2SAT 98
[2021-11-28] MEDS: LORazepam 0.5 MG TAB PO ×3 (01:11→18:11)
[2021-11-28] MEDS: Normal Saline Flush 10 ML SYR IVP ×4 (02:19→21:48)
[2021-11-28] MEDS: Normal Saline 500 ML 30 ML IV (02:19)
[2021-11-28] MEDS: metroNIDAZOLE 500 MG/100 ML BAG 100 MG IVPB ×3 (02:20→17:28)
[2021-11-28 08:55] LABS: Alpha 1 Antitrypsin,Serum 238 mg/dL (90-200); IgA 539 mg/dL (85-499); IgG 2652 mg/dL (610-1,616); IgM 67 mg/dL (35-242)
[2021-11-28 09:16] VITALS: BP 122/82; PULSE 88; RESP 18; TEMP 37.1; O2SAT 97
--- NOTE | 2021-11-28 09:31 | CMPROGNOTE_ITS ---
- If Service Date Differs Date of service: 11/28/21 Time of Service: 09:31 Care Management Progress Note S/O: Nicol was sitting up in bed when CM met with her. She was alert, oriented and appropriate. She is planning on going to the OR tomorrow for skin grafting. Nicol shares that she has been working on her nutritional in take and keeping a food journal. Nicol spoke with [facility] yesterday and is not interested in additional resources at this time. Per pt, she previously worked at [employer] and is familiar with local resources that are available. Nicol is hopeful that her family will be able to visit her on Friday. She will let CM know for sure. Permission granted for in-person visit at [facility]-in library with staff [id number] only. CM reviewed details with Nicol who will continue to discuss with her due to psycho-social barriers. If the family is able to visit, Nicol will notify CM to coordinate visit in the library which will be overseen by CM. Her family will enter the library through the side door, and not have to be screened by sentry. Discussed plan with NOEMI Ch and YAN Posada. Per report, Nicol's surgery is postponed until and will then she will require three weeks of IV ABX. CM will continue to follow. A: 36 year old female admitted to [facility] on 11/13/21 for Dry, Gangrene RLE. P: Nicol will require IV abx and ongoing wound care for gangrenous wound(s) on her right ankle. Nicol will transition to SWB1 status when medically ready, until Surgery feels the area is able to accept a skin graft. CM will coordinate and support in person family visitation.
[2021-11-28] MEDS: Enoxaparin 40 MG/0.4 ML SYR SC (09:37)
[2021-11-28] MEDS: Buprenorphine/Naloxone 8 mg/2 mg FILM 2 EACH SL (09:37)
[2021-11-28] MEDS: methIMAzole 5 MG TAB PO (09:38)
[2021-11-28] MEDS: Famotidine 20 MG TAB PO ×2 (09:38→20:58)
[2021-11-28] MEDS: Buprenorphine/Naloxone 2 mg/0.5 mg FILM 1 EACH SL (09:38)
[2021-11-28] MEDS: DULoxetine 20 MG CAP PO (09:38)
[2021-11-28] MEDS: Zinc Sulfate 220 MG TAB PO (09:38)
[2021-11-28] MEDS: traMADol 50 MG TAB PO ×2 (09:38→21:47)
[2021-11-28] MEDS: Cyanocobalamin 500 MCG TAB 1000 MCG PO (09:39)
[2021-11-28] MEDS: Ascorbic Acid 500 MG TAB PO ×2 (09:39→20:58)
[2021-11-28 10:08] LABS: IgE 81 IU/mL (<158)
--- NOTE | 2021-11-28 11:49 | PTTR_ITS ---
Date of service: 11/28/21 Time of Service: 11:49 PT Notes Visit Reasons: Dry,Gangrene RLE Physical Therapy Inpatient Treatment Note Date: 11/28/2021 SUBJECTIVE: Agreeable to PT session.? Reports pain on her R foot but is willing to participate in therapy.? More willing to increase weight bearing on the R LE. OBJECTIVE: PAIN:? Reports pain on the R leg and foot at 4-5/10 at rest, up to 8/10 at rest TRANSFERS: Rolling: Independent Supine to sit: Independent Sit to supine: Independent Sit to stand: Independent with 4WW Stand to sit: Independent with 4WW Bed to chair: Supervision with 4WW THERA ACT: Encourage static standing balance and tolerance while working on [id number] art x 10 minutes with patient reporting up to 8/10 pain. GAIT Device: 4WW Weight bearing: Anxious about putting any weight through R LE Assist: Supervision Distance: 250 feet + 50 feet Deviation: WBAT on R LE for the latter half of the walk ASSESSMENT: Increasing pain tolerance and willingness to put weight on R LE. Grafting procedure to R LE wound to be done on 11/29/2021. DISCHARGE RECOMMENDATIONS: [] ? Home with no services [] [X] ? Home with services.? Patient will benefit from home health PT services in order to progress mobility level using least restrictive assistive ambulatory device, assess home safety, identify additional equipment needs, and establish a functional maintenance program that will increase ability of patient to remain at home. [] ? Home with outpatient PT [] [] ? SNF for continued rehabilitation [] [] ? [facility] [] [] ? SNF versus LTC based on ability to participate and progress [] Treatment time: 58133 x 35 minutes beginning at 11:49 AM.
--- NOTE | 2021-11-28 11:56 | RESPIRATORY ---
Pt refused ns 7% updraft 0900, 1046.
[2021-11-28] MEDS: Acetaminophen 325 MG TAB 650 MG PO (12:48)
--- NOTE | 2021-11-28 13:40 | W.PULMPROG ---
Assessment and Plan Assessment and plan (1) Bronchiectasis: Status: Acute (2) Bullous emphysema: Status: Acute (3) Pneumonia: Status: Acute (4) Smoker unmotivated to quit: Status: Chronic (5) COPD (chronic obstructive pulmonary disease): Status: Chronic (6) Asthma: Status: Chronic Assessment and plan: This is a 36 yo female who has a history of asthma and smoking who has had recurrent pnuemonias this year. Her Chest CT is significant for bullous emphysema and cystic appearing bronchiectasis much more severe than would be expected given her age. The RUL lung infiltrate is most likely inflammatory in nature as opposed to malignancy, but I will obtain reimaging as an outpatient to assess for resolution. She has significant left>right bronchiectasis with volume loss and significant consolidaiton with no history of chest tubes or surgery on that side of the chest. The differential for this is broad but includes infection (including AFB), immunodeficiency, rheumatologic or less likely cystic fibrosis. I will begin the work up for these, but ultimately will complete the work up for this as an outpatient. I did recommend bronchoscopy to sample both the RUL infiltrate and the LLL consolidations but she refused this tearfully stating she does not want anesthesia (GA would be indicated for her for this procedure given her history of opiod use). She completed the 7% HTS challenge yesterday that found it was safe in her, so I will start this bid. Her spirometry also revealed that she does have moderate COPD. Interestingly her IgG returned elevated. I will see what her IgG4 subclass returns as because this is a rare cause of bronchiectasis and other interstitial abnormalities. Bullous emphysema with COPD - start Spiriva - agree with prn albuterol neb - alpha 1 anti-trypsin test returns as normal Bronchiectasis - IgG elevated - subclasses are still pending - HIV negative from this admission - NINI and ANCA pending - sweat chloride testing will be done at [facility] as an outpatient - recommend Acapella bid after albuterol neb bid - recommend 7% HTS nebs bid - sputum culture RUL infiltrate - repeat chest CT imaging in 2 months - will set up a f/u visit with me shortly after this chest CT. General Date Of Service Date of service: 11/28/21 Time of Service: 08:50 Requesting physician: Susana Richey Reason for Consult: Abnormal Imaging Subjective Note Note: Patient sleeping at time of my assessment. Not cooperative to encounter. Exam Narrative Exam Narrative: Gen: NAD, normal respiratory effort, well-nourished HENT: PERRL, nasal turbinates normal without erythema or inflammation, moist oral mucosa, Mallampati 2, No LAD or JVD Chest: No respiratory distress, normal appearance of chest, clear to auscultation bilaterally, no crackles or wheezes, normal inspiratory effort Heart: regular rate and rhythym, no murmurs, rubs or gallops Abdomen: Non-distended, soft, non tender Extremities: No clubbing, edema, cyanosis, rashes. Wound vac on right ankle. Neuro: AAOx3 , non focal Psych: cooperative, appropriate mental affect Objective Last Vital Signs Temp 37.1 C 11/28/21 09:16 Pulse 88 11/28/21 09:16 Resp 18 11/28/21 09:16 BP 122/82 11/28/21 09:16 Pulse Ox 97 11/28/21 09:16 Laboratory Results - last 24 hr 11/26/21 11/26/21 11/26/21 06:36 06:36 06:36 Audhn-5-Tcnvvdocjka 238 H IgG 2652 H IgA 539 H IgM 67 IgE 81 Urine Legionella Ag 11/27/21 12:30 Seyoi-5-Ksggxbpfwqs IgG IgA IgM IgE Urine Legionella Ag Negative Results Medications Medications: Active Medications Generic Name Dose Route Start Last Admin Trade Name Freq PRN Reason Stop Dose Admin Acetaminophen 650 mg 11/14/21 14:02 11/28/21 12:48 Acetaminophen 325 Mg Tab PO 650 mg Q6H PRN PRN Administration Albuterol Sulfate 2.5 mg 11/13/21 15:30 Albuterol 2.5 Mg/3 Ml Inh Soln Vial UPD Q4H PRN PRN Ascorbic Acid 500 mg 11/13/21 20:00 11/28/21 09:39 Ascorbic Acid 500 Mg Tab PO 500 mg BID HANSA Administration Buprenorphine/Naloxone 2 each 11/15/21 08:30 11/28/21 09:37 Buprenorphine/Naloxone 8 Mg/2 Mg Film SL 2 each DAILY HANSA Administration Buprenorphine/Naloxone 1 each 11/15/21 08:30 11/28/21 09:38 Buprenorphine/Naloxone 2 Mg/0.5 Mg Film SL 1 each DAILY HANSA Administration Cyanocobalamin 1,000 mcg 11/15/21 08:30 11/28/21 09:39 Cyanocobalamin 500 Mcg Tab PO 1,000 mcg DAILY HANSA Administration Duloxetine HCl 20 mg 11/23/21 09:00 11/28/21 09:38 Duloxetine 20 Mg Cap PO 20 mg DAILY HANSA Administration Enoxaparin Sodium 40 mg 11/14/21 10:00 11/28/21 09:37 Enoxaparin 40 Mg/0.4 Ml Syr SC 40 mg Q24H HANSA Administration Famotidine 20 mg 11/18/21 20:00 11/28/21 09:38 Famotidine 20 Mg Tab PO 20 mg BID HANSA Administration Gabapentin 600 mg 11/23/21 22:00 11/27/21 22:10 Gabapentin 300 Mg Cap PO 600 mg HS HANSA Administration Gabapentin 300 mg 11/24/21 14:00 11/27/21 14:04 Gabapentin 300 Mg Cap PO 300 mg DAILY@1400 HANSA Administration Hydroxyzine Pamoate 25 mg 11/13/21 18:21 11/27/21 06:07 Hydroxyzine Pamoate 25 Mg Cap PO 25 mg TID PRN PRN Administration Sodium Chloride 500 mls @ 0 mls/hr 11/13/21 15:30 11/28/21 02:19 Saline 500ml Bag IV 30 mls/hr PRN PRN Administration As Directed Ceftriaxone Sodium/Dextrose 2 gm in 50 mls @ 100 mls/hr 11/22/21 16:00 11/27/21 16:45 Rocephin IVPB 100 mls/hr Q24H HANSA Administration Metronidazole 500 mg in 100 mls @ 100 mls/hr 11/23/21 10:00 11/28/21 09:39 Flagyl IVPB 100 mls/hr Q8H HANSA Administration IV Miscellaneous Supplies 1 each 11/13/21 15:30 Iv Access IV DIRECTED HANSA Lactobacillus Acidophilus/Casei 1 cap 11/14/21 08:30 11/28/21 09:38 L. Acidophilus, Casei, Rhamnosus Cap PO 1 cap DAILY HANSA Administration Lidocaine HCl 50 ml 11/16/21 16:00 11/19/21 14:57 Lidocaine 4% Topical Solution 50 Ml Btl MM 3 ml DIRECTED HANSA Administration Lorazepam 0.5 mg 11/17/21 17:24 11/28/21 12:46 Lorazepam 0.5 Mg Tab PO 0.5 mg TID PRN PRN Administration Lorazepam 1 mg 11/19/21 10:30 11/26/21 14:16 Lorazepam 2 Mg/Ml Vial IVP 1 mg MOFR@1030 HANSA Administration Megestrol Acetate 80 mg 11/24/21 08:30 11/28/21 12:46 Megestrol 40 Mg Tab PO 80 mg QID HANSA Administration Methimazole 5 mg 11/16/21 08:30 11/28/21 09:38 Methimazole 5 Mg Tab PO 5 mg DAILY HANSA Administration Multi-Ingredient Supplement 1 ounce 11/13/21 20:00 11/28/21 09:40 Protein Nutritional Supplement 16 Gm 1 Ounce Packet PO Not Given TID [facility] Nicotine 1 cartridge 11/13/21 18:21 11/18/21 13:12 Nicotine 10 Mg/Cartridge 30 Cart/Pkg IH 1 cartridge Q2H PRN PRN Administration Ondansetron HCl 4 mg 11/13/21 16:43 Ondansetron 4 Mg/2 Ml Vial IVP Q4H PRN PRN Polyethylene Glycol 17 gm 11/13/21 17:07 Polyethylene Glycol 3350 17 Gm Packet PO DAILY PRN PRN Sodium Chloride 0 ml 11/13/21 15:30 11/28/21 09:39 Normal Saline Flush 10 Ml Syr IVP 20 ml PRN PRN Administration Sodium Chloride 4 ml 11/28/21 08:30 Sodium Chloride 7% For Inhalation 4 Ml Vial IH BID [facility] Tramadol HCl 150 mg 11/19/21 10:45 11/26/21 13:50 Tramadol 50 Mg Tab PO Not Given MOFR@1000 [facility] Tramadol HCl 50 mg 11/26/21 22:00 11/27/21 22:11 Tramadol 50 Mg Tab PO 50 mg HS HANSA Administration Tramadol HCl 50 mg 11/27/21 08:30 11/28/21 09:38 Tramadol 50 Mg Tab PO 50 mg [id number] HANSA Administration Zinc Sulfate 220 mg 11/14/21 08:30 11/28/21 09:38 Zinc Sulfate 220 Mg Tab PO 220 mg DAILY HANSA Administration Allergies Penicillins Allergy (Unknown, Verified 11/13/21 14:49) Hives Labs Result Diagrams: 11/26/21 07:30 11/26/21 07:30 Labs: 11/22/21 19:00 Urine - Reflex from Ua Urine Culture - Final 11/13/21 15:21 Ankle - Right Skin Culture - Final Escherichia coli Group B Streptococcus Normal Gillian 11/13/21 15:44 Ankle - Right Anaerobic Culture - Final 11/13/21 15:44 Ankle - Right Anaerobic Culture - Final Anaerobic Gram Positive Cocci 11/13/21 15:44 Ankle - Right Wound Culture - Final Escherichia coli Group B Streptococcus Normal Gillian 11/13/21 15:44 Ankle - Right Gram Stain - Final 11/13/21 22:10 Blood Blood Culture - Final NO GROWTH 120 HOURS 11/13/21 22:00 Blood Blood Culture - Final NO GROWTH 120 HOURS 11/15/21 16:15 Nose MRSA Screen - Final Laboratory Tests Range/Units 11/13/21 11/13/21 11/13/21 10:10 10:10 10:10 WBC (4.4-10.8) 10^3/uL RBC (3.93-5.22) 10^6/uL Hgb (11.2-15.7) g/dL Hct (36.0-46.0) % MCV (80-95) fL MCH (27.0-33.0) pg MCHC (32.0-36.0) % RDW (11.7-14.6) % Plt Count (130-400) 10^3/uL MPV (8.0-11.0) fL Immature Gran % Neutrophils % Band Neutrophils % Lymphocytes % Monocytes % Eosinophils % Basophils % Nucleated RBC % % Absolute Neutrophils (1.2-6.7) 10^3/uL Absolute Lymphocytes (1.2-3.4) 10^3/uL Absolute Monocytes (0.1-0.8) 10^3/uL Absolute Eosinophils (0.0-0.7) 10^3/uL Absolute Basophils (0.0-0.2) 10^3/uL RBC Morphology ESR (0-20) mm/hr 87 H D-Dimer (<500) ng/mlFEU VBG Lactate (0.6-1.4) mmol/L 1.6 H Sodium (136-145) mmol/L 138 Potassium (3.5-5.1) mmol/L 2.6 L* Chloride (98-107) mmol/L 102 Carbon Dioxide (21.0-32.0) mmol/L 24.8 Anion Gap (3-11) mmol/L 11.2 H BUN (7-18) mg/dL 24 H Creatinine (0.55-1.02) mg/dL 0.8 Estimated GFR/1.73 m2 (mL/min/1.73m2) >= 60.00 Glucose (74-106) mg/dL 186 H Hemoglobin A1c (<5.7) % Calcium (8.5-10.1) mg/dL 9.1 Phosphorus (2.6-4.7) mg/dL Magnesium (1.8-2.4) mg/dL Total Bilirubin (0.2-1.0) mg/dL 0.2 GGT (5-55) U/L AST (15-37) U/L 16 ALT (14-59) U/L 27 Alkaline Phosphatase (46-116) U/L 129 H C-Reactive Protein (0.0-0.3) mg/dL 11.51 H Total Protein (6.4-8.2) g/dL 8.5 H Albumin (3.4-5.0) g/dL 2.4 L Prealbumin (20-40) mg/dL Imbsr-4-Gtacblmtpvz (90-200) mg/dL Vitamin B12 (193-986) pg/mL 25-OH Vitamin D Total (30-100) ng/mL Folate (8.6-20.0) ng/mL Procalcitonin ng/mL TSH (0.36-3.74) uIU/mL Free T4 (0.76-1.46) ng/dL Total T3 (97-169) ng/dL Thyroid Stim Immunoglob (<=1.3) TSI index Urine Color (Yellow) Urine Clarity (Clear) Urine pH (5-8) Ur Specific [place] (1.005-1.025) Urine Protein (Negative) mg/dL Urine Ketones (Negative) mg/dL Urine Blood (Negative) Urine Nitrite (Negative) Urine Bilirubin (Negative) Urine Urobilinogen (Up TO 0.2) EU/dL Ur Leukocyte Esterase (Negative) Urine RBC (0-2) HPF Urine WBC (0-5) HPF Ur Epithelial Cells (Negative) HPF Urine Crystals (Negative) HPF Urine Bacteria (Negative) HPF Urine Casts (Negative) LPF Urine Mucus (Negative) Urine Other (Negative) Ur Culture Indicated? Urine Glucose (Negative) mg/dL Stool Calprotectin mcg/g Vancomycin Trough (10.0-20.0) ug/mL Urine Opiates Screen (Negative) Urine Methadone Screen (Negative) Ur Barbiturates Screen (Negative) Ur Tricyclics Screen (Negative) Ur Amphetamines Screen (Negative) U Benzodiazepines Scrn (Negative) Urine Cocaine Screen (Negative) Ur THC Screen (Negative) IgG (610-1,616) mg/dL IgA (85-499) mg/dL IgM (35-242) mg/dL IgE (<158) IU/mL NINI Titer NINI Titer 2 NINI Titer 3 NINI Interpretation (Negative) Thyroperoxidase Ab (<=60) IU/mL Thyroglobulin Antibody (<=60) IU/mL COVID-19 Source SARS-CoV-2 (PCR) Hep Bs Antigen (Negative) Hep Bs Antibody (See Note) Hep Bs Antibody, Quant (See Note) mIU/mL Hep B Core Total Ab (Negative) Hepatitis C Antibody (Negative) HIV 1&2 Ag/Ab, 4th Gen (Negative) Urine Legionella Ag (Negative) Add-On Test Request Patient ABO/Rh Antibody Screen Range/Units 11/13/21 11/13/21 11/13/21 10:10 10:10 13:07 WBC (4.4-10.8) 10^3/uL 28.17 H* RBC (3.93-5.22) 10^6/uL 4.46 Hgb (11.2-15.7) g/dL 11.7 Hct (36.0-46.0) % 37.6 MCV (80-95) fL 84.3 MCH (27.0-33.0) pg 26.2 L MCHC (32.0-36.0) % 31.1 L RDW (11.7-14.6) % 16.7 H Plt Count (130-400) 10^3/uL 612 H MPV (8.0-11.0) fL 9.5 Immature Gran % 0.0 Neutrophils % 79.0 Band Neutrophils % 2 Lymphocytes % 11.0 Monocytes % 5.0 Eosinophils % 1.0 Basophils % 2.0 Nucleated RBC % % 0 Absolute Neutrophils (1.2-6.7) 10^3/uL 22.82 H Absolute Lymphocytes (1.2-3.4) 10^3/uL 3.10 Absolute Monocytes (0.1-0.8) 10^3/uL 1.41 H Absolute Eosinophils (0.0-0.7) 10^3/uL 0.28 Absolute Basophils (0.0-0.2) 10^3/uL 0.56 H RBC Morphology Normal ESR (0-20) mm/hr D-Dimer (<500) ng/mlFEU VBG Lactate (0.6-1.4) mmol/L Sodium (136-145) mmol/L Potassium (3.5-5.1) mmol/L Chloride (98-107) mmol/L Carbon Dioxide (21.0-32.0) mmol/L Anion Gap (3-11) mmol/L BUN (7-18) mg/dL Creatinine (0.55-1.02) mg/dL Estimated GFR/1.73 m2 (mL/min/1.73m2) Glucose (74-106) mg/dL Hemoglobin A1c (<5.7) % 5.1 Calcium (8.5-10.1) mg/dL Phosphorus (2.6-4.7) mg/dL Magnesium (1.8-2.4) mg/dL Total Bilirubin (0.2-1.0) mg/dL GGT (5-55) U/L AST (15-37) U/L ALT (14-59) U/L Alkaline Phosphatase (46-116) U/L C-Reactive Protein (0.0-0.3) mg/dL Total Protein (6.4-8.2) g/dL Albumin (3.4-5.0) g/dL Prealbumin (20-40) mg/dL Uosjk-1-Lacqhtkyljg (90-200) mg/dL Vitamin B12 (193-986) pg/mL 25-OH Vitamin D Total (30-100) ng/mL Folate (8.6-20.0) ng/mL Procalcitonin ng/mL TSH (0.36-3.74) uIU/mL Free T4 (0.76-1.46) ng/dL Total T3 (97-169) ng/dL Thyroid Stim Immunoglob (<=1.3) TSI index Urine Color (Yellow) Urine Clarity (Clear) Urine pH (5-8) Ur Specific [place] (1.005-1.025) Urine Protein (Negative) mg/dL Urine Ketones (Negative) mg/dL Urine Blood (Negative) Urine Nitrite (Negative) Urine Bilirubin (Negative) Urine Urobilinogen (Up TO 0.2) EU/dL Ur Leukocyte Esterase (Negative) Urine RBC (0-2) HPF Urine WBC (0-5) HPF Ur Epithelial Cells (Negative) HPF Urine Crystals (Negative) HPF Urine Bacteria (Negative) HPF Urine Casts (Negative) LPF Urine Mucus (Negative) Urine Other (Negative) Ur Culture Indicated? Urine Glucose (Negative) mg/dL Stool Calprotectin mcg/g Vancomycin Trough (10.0-20.0) ug/mL Urine Opiates Screen (Negative) Urine Methadone Screen (Negative) Ur Barbiturates Screen (Negative) Ur Tricyclics Screen (Negative) Ur Amphetamines Screen (Negative) U Benzodiazepines Scrn (Negative) Urine Cocaine Screen (Negative) Ur THC Screen (Negative) IgG (610-1,616) mg/dL IgA (85-499) mg/dL IgM (35-242) mg/dL IgE (<158) IU/mL NINI Titer NINI Titer 2 NINI Titer 3 NINI Interpretation (Negative) Thyroperoxidase Ab (<=60) IU/mL Thyroglobulin Antibody (<=60) IU/mL COVID-19 Source Cancelled SARS-CoV-2 (PCR) Cancelled Hep Bs Antigen (Negative) Hep Bs Antibody (See Note) Hep Bs Antibody, Quant (See Note) mIU/mL Hep B Core Total Ab (Negative) Hepatitis C Antibody (Negative) HIV 1&2 Ag/Ab, 4th Gen (Negative) Urine Legionella Ag (Negative) Add-On Test Request Patient ABO/Rh Antibody Screen Range/Units 11/13/21 11/13/21 11/13/21 13:12 13:47 14:00 WBC (4.4-10.8) 10^3/uL RBC (3.93-5.22) 10^6/uL Hgb (11.2-15.7) g/dL Hct (36.0-46.0) % MCV (80-95) fL MCH (27.0-33.0) pg MCHC (32.0-36.0) % RDW (11.7-14.6) % Plt Count (130-400) 10^3/uL MPV (8.0-11.0) fL Immature Gran % Neutrophils % Band Neutrophils % Lymphocytes % Monocytes % Eosinophils % Basophils % Nucleated RBC % % Absolute Neutrophils (1.2-6.7) 10^3/uL Absolute Lymphocytes (1.2-3.4) 10^3/uL Absolute Monocytes (0.1-0.8) 10^3/uL Absolute Eosinophils (0.0-0.7) 10^3/uL Absolute Basophils (0.0-0.2) 10^3/uL RBC Morphology ESR (0-20) mm/hr D-Dimer (<500) ng/mlFEU VBG Lactate (0.6-1.4) mmol/L Sodium (136-145) mmol/L Cancelled Potassium (3.5-5.1) mmol/L Cancelled Chloride (98-107) mmol/L Cancelled Carbon Dioxide (21.0-32.0) mmol/L Cancelled Anion Gap (3-11) mmol/L Cancelled BUN (7-18) mg/dL Cancelled Creatinine (0.55-1.02) mg/dL Cancelled Estimated GFR/1.73 m2 (mL/min/1.73m2) Cancelled Glucose (74-106) mg/dL Cancelled Hemoglobin A1c (<5.7) % Calcium (8.5-10.1) mg/dL Cancelled Phosphorus (2.6-4.7) mg/dL Magnesium (1.8-2.4) mg/dL Total Bilirubin (0.2-1.0) mg/dL GGT (5-55) U/L AST (15-37) U/L ALT (14-59) U/L Alkaline Phosphatase (46-116) U/L C-Reactive Protein (0.0-0.3) mg/dL Total Protein (6.4-8.2) g/dL Albumin (3.4-5.0) g/dL Prealbumin (20-40) mg/dL Otjxr-1-Qurfkfqzyzq (90-200) mg/dL Vitamin B12 (193-986) pg/mL 25-OH Vitamin D Total (30-100) ng/mL Folate (8.6-20.0) ng/mL Procalcitonin ng/mL TSH (0.36-3.74) uIU/mL Free T4 (0.76-1.46) ng/dL Total T3 (97-169) ng/dL Thyroid Stim Immunoglob (<=1.3) TSI index Urine Color (Yellow) Urine Clarity (Clear) Urine pH (5-8) Ur Specific [place] (1.005-1.025) Urine Protein (Negative) mg/dL Urine Ketones (Negative) mg/dL Urine Blood (Negative) Urine Nitrite (Negative) Urine Bilirubin (Negative) Urine Urobilinogen (Up TO 0.2) EU/dL Ur Leukocyte Esterase (Negative) Urine RBC (0-2) HPF Urine WBC (0-5) HPF Ur Epithelial Cells (Negative) HPF Urine Crystals (Negative) HPF Urine Bacteria (Negative) HPF Urine Casts (Negative) LPF Urine Mucus (Negative) Urine Other (Negative) Ur Culture Indicated? Urine Glucose (Negative) mg/dL Stool Calprotectin mcg/g Vancomycin Trough (10.0-20.0) ug/mL Urine Opiates Screen (Negative) Negative Urine Methadone Screen (Negative) Negative Ur Barbiturates Screen (Negative) Negative Ur Tricyclics Screen (Negative) Negative Ur Amphetamines Screen (Negative) Negative U Benzodiazepines Scrn (Negative) Negative Urine Cocaine Screen (Negative) Negative Ur THC Screen (Negative) Negative IgG (610-1,616) mg/dL IgA (85-499) mg/dL IgM (35-242) mg/dL IgE (<158) IU/mL NINI Titer NINI Titer 2 NINI Titer 3 NINI Interpretation (Negative) Thyroperoxidase Ab (<=60) IU/mL Thyroglobulin Antibody (<=60) IU/mL COVID-19 Source NASAL SARS-CoV-2 (PCR) Negative Hep Bs Antigen (Negative) Hep Bs Antibody (See Note) Hep Bs Antibody, Quant (See Note) mIU/mL Hep B Core Total Ab (Negative) Hepatitis C Antibody (Negative) HIV 1&2 Ag/Ab, 4th Gen (Negative) Urine Legionella Ag (Negative) Add-On Test Request Patient ABO/Rh Antibody Screen Range/Units 11/13/21 11/13/21 11/13/21 14:25 14:30 20:09 WBC (4.4-10.8) 10^3/uL RBC (3.93-5.22) 10^6/uL Hgb (11.2-15.7) g/dL Hct (36.0-46.0) % MCV (80-95) fL MCH (27.0-33.0) pg MCHC (32.0-36.0) % RDW (11.7-14.6) % Plt Count (130-400) 10^3/uL MPV (8.0-11.0) fL Immature Gran % Neutrophils % Band Neutrophils % Lymphocytes % Monocytes % Eosinophils % Basophils % Nucleated RBC % % Absolute Neutrophils (1.2-6.7) 10^3/uL Absolute Lymphocytes (1.2-3.4) 10^3/uL Absolute Monocytes (0.1-0.8) 10^3/uL Absolute Eosinophils (0.0-0.7) 10^3/uL Absolute Basophils (0.0-0.2) 10^3/uL RBC Morphology ESR (0-20) mm/hr D-Dimer (<500) ng/mlFEU VBG Lactate (0.6-1.4) mmol/L Sodium (136-145) mmol/L 139 Potassium (3.5-5.1) mmol/L 3.5 Chloride (98-107) mmol/L 107 Carbon Dioxide (21.0-32.0) mmol/L 22.6 Anion Gap (3-11) mmol/L 9.4 BUN (7-18) mg/dL 18 D Creatinine (0.55-1.02) mg/dL 0.5 L D Estimated GFR/1.73 m2 (mL/min/1.73m2) >= 60.00 Glucose (74-106) mg/dL 91 D Hemoglobin A1c (<5.7) % Calcium (8.5-10.1) mg/dL 8.1 L Phosphorus (2.6-4.7) mg/dL Magnesium (1.8-2.4) mg/dL Total Bilirubin (0.2-1.0) mg/dL GGT (5-55) U/L 34 AST (15-37) U/L ALT (14-59) U/L Alkaline Phosphatase (46-116) U/L C-Reactive Protein (0.0-0.3) mg/dL Total Protein (6.4-8.2) g/dL Albumin (3.4-5.0) g/dL Prealbumin (20-40) mg/dL Ngmjs-1-Figqpakogyf (90-200) mg/dL Vitamin B12 (193-986) pg/mL 25-OH Vitamin D Total (30-100) ng/mL Folate (8.6-20.0) ng/mL Procalcitonin ng/mL TSH (0.36-3.74) uIU/mL Free T4 (0.76-1.46) ng/dL Total T3 (97-169) ng/dL Thyroid Stim Immunoglob (<=1.3) TSI index Urine Color (Yellow) Yellow Urine Clarity (Clear) Sl Cloudy Urine pH (5-8) 7.0 Ur Specific [place] (1.005-1.025) 1.015 Urine Protein (Negative) mg/dL Trace H Urine Ketones (Negative) mg/dL Negative Urine Blood (Negative) Moderate H Urine Nitrite (Negative) Negative Urine Bilirubin (Negative) Negative Urine Urobilinogen (Up TO 0.2) EU/dL 1.0 H Ur Leukocyte Esterase (Negative) Negative Urine RBC (0-2) HPF 10-20 H Urine WBC (0-5) HPF 3-5 Ur Epithelial Cells (Negative) HPF Few Urine Crystals (Negative) HPF Negative Urine Bacteria (Negative) HPF Rare Urine Casts (Negative) LPF Negative Urine Mucus (Negative) Negative Urine Other (Negative) Ur Culture Indicated? No Urine Glucose (Negative) mg/dL Negative Stool Calprotectin mcg/g Vancomycin Trough (10.0-20.0) ug/mL Urine Opiates Screen (Negative) Urine Methadone Screen (Negative) Ur Barbiturates Screen (Negative) Ur Tricyclics Screen (Negative) Ur Amphetamines Screen (Negative) U Benzodiazepines Scrn (Negative) Urine Cocaine Screen (Negative) Ur THC Screen (Negative) IgG (610-1,616) mg/dL IgA (85-499) mg/dL IgM (35-242) mg/dL IgE (<158) IU/mL NINI Titer NINI Titer 2 NINI Titer 3 NINI Interpretation (Negative) Thyroperoxidase Ab (<=60) IU/mL Thyroglobulin Antibody (<=60) IU/mL COVID-19 Source SARS-CoV-2 (PCR) Hep Bs Antigen (Negative) Hep Bs Antibody (See Note) Hep Bs Antibody, Quant (See Note) mIU/mL Hep B Core Total Ab (Negative) Hepatitis C Antibody (Negative) HIV 1&2 Ag/Ab, 4th Gen (Negative) Urine Legionella Ag (Negative) Add-On Test Request Patient ABO/Rh Antibody Screen Range/Units 11/13/21 11/13/21 11/14/21 22:35 Unknown 06:35 WBC (4.4-10.8) 10^3/uL RBC (3.93-5.22) 10^6/uL Hgb (11.2-15.7) g/dL Hct (36.0-46.0) % MCV (80-95) fL MCH (27.0-33.0) pg MCHC (32.0-36.0) % RDW (11.7-14.6) % Plt Count (130-400) 10^3/uL MPV (8.0-11.0) fL Immature Gran % Neutrophils % Band Neutrophils % Lymphocytes % Monocytes % Eosinophils % Basophils % Nucleated RBC % % Absolute Neutrophils (1.2-6.7) 10^3/uL Absolute Lymphocytes (1.2-3.4) 10^3/uL Absolute Monocytes (0.1-0.8) 10^3/uL Absolute Eosinophils (0.0-0.7) 10^3/uL Absolute Basophils (0.0-0.2) 10^3/uL RBC Morphology ESR (0-20) mm/hr D-Dimer (<500) ng/mlFEU VBG Lactate (0.6-1.4) mmol/L Sodium (136-145) mmol/L Potassium (3.5-5.1) mmol/L Chloride (98-107) mmol/L Carbon Dioxide (21.0-32.0) mmol/L Anion Gap (3-11) mmol/L BUN (7-18) mg/dL Creatinine (0.55-1.02) mg/dL Estimated GFR/1.73 m2 (mL/min/1.73m2) Glucose (74-106) mg/dL Hemoglobin A1c (<5.7) % Calcium (8.5-10.1) mg/dL Phosphorus (2.6-4.7) mg/dL Magnesium (1.8-2.4) mg/dL 1.6 L Total Bilirubin (0.2-1.0) mg/dL GGT (5-55) U/L AST (15-37) U/L ALT (14-59) U/L Alkaline Phosphatase (46-116) U/L C-Reactive Protein (0.0-0.3) mg/dL Cancelled 11.11 H Total Protein (6.4-8.2) g/dL Albumin (3.4-5.0) g/dL Prealbumin (20-40) mg/dL [id number] (90-200) mg/dL Vitamin B12 (193-986) pg/mL 389 25-OH Vitamin D Total (30-100) ng/mL Folate (8.6-20.0) ng/mL > 20.0 H Procalcitonin ng/mL TSH (0.36-3.74) uIU/mL Free T4 (0.76-1.46) ng/dL Total T3 (97-169) ng/dL Thyroid Stim Immunoglob (<=1.3) TSI index Urine Color (Yellow) Urine Clarity (Clear) Urine pH (5-8) Ur Specific [place] (1.005-1.025) Urine Protein (Negative) mg/dL Urine Ketones (Negative) mg/dL Urine Blood (Negative) Urine Nitrite (Negative) Urine Bilirubin (Negative) Urine Urobilinogen (Up TO 0.2) EU/dL Ur Leukocyte Esterase (Negative) Urine RBC (0-2) HPF Urine WBC (0-5) HPF Ur Epithelial Cells (Negative) HPF Urine Crystals (Negative) HPF Urine Bacteria (Negative) HPF Urine Casts (Negative) LPF Urine Mucus (Negative) Urine Other (Negative) Ur Culture Indicated? Urine Glucose (Negative) mg/dL Stool Calprotectin mcg/g Vancomycin Trough (10.0-20.0) ug/mL Urine Opiates Screen (Negative) Urine Methadone Screen (Negative) Ur Barbiturates Screen (Negative) Ur Tricyclics Screen (Negative) Ur Amphetamines Screen (Negative) U Benzodiazepines Scrn (Negative) Urine Cocaine Screen (Negative) Ur THC Screen (Negative) IgG (610-1,616) mg/dL IgA (85-499) mg/dL IgM (35-242) mg/dL IgE (<158) IU/mL NINI Titer NINI Titer 2 NINI Titer 3 NINI Interpretation (Negative) Thyroperoxidase Ab (<=60) IU/mL Thyroglobulin Antibody (<=60) IU/mL COVID-19 Source SARS-CoV-2 (PCR) Hep Bs Antigen (Negative) Hep Bs Antibody (See Note) Hep Bs Antibody, Quant (See Note) mIU/mL Hep B Core Total Ab (Negative) Hepatitis C Antibody (Negative) HIV 1&2 Ag/Ab, 4th Gen (Negative) Urine Legionella Ag (Negative) Add-On Test Request DONE Patient ABO/Rh Antibody Screen Range/Units 11/14/21 11/14/21 11/14/21 06:35 06:35 06:35 WBC (4.4-10.8) 10^3/uL RBC (3.93-5.22) 10^6/uL Hgb (11.2-15.7) g/dL Hct (36.0-46.0) % MCV (80-95) fL MCH (27.0-33.0) pg MCHC (32.0-36.0) % RDW (11.7-14.6) % Plt Count (130-400) 10^3/uL MPV (8.0-11.0) fL Immature Gran % Neutrophils % Band Neutrophils % Lymphocytes % Monocytes % Eosinophils % Basophils % Nucleated RBC % % Absolute Neutrophils (1.2-6.7) 10^3/uL Absolute Lymphocytes (1.2-3.4) 10^3/uL Absolute Monocytes (0.1-0.8) 10^3/uL Absolute Eosinophils (0.0-0.7) 10^3/uL Absolute Basophils (0.0-0.2) 10^3/uL RBC Morphology ESR (0-20) mm/hr 41 H D-Dimer (<500) ng/mlFEU VBG Lactate (0.6-1.4) mmol/L Sodium (136-145) mmol/L Potassium (3.5-5.1) mmol/L Chloride (98-107) mmol/L Carbon Dioxide (21.0-32.0) mmol/L Anion Gap (3-11) mmol/L BUN (7-18) mg/dL Creatinine (0.55-1.02) mg/dL Estimated GFR/1.73 m2 (mL/min/1.73m2) Glucose (74-106) mg/dL Hemoglobin A1c (<5.7) % Calcium (8.5-10.1) mg/dL Phosphorus (2.6-4.7) mg/dL Magnesium (1.8-2.4) mg/dL Total Bilirubin (0.2-1.0) mg/dL GGT (5-55) U/L AST (15-37) U/L ALT (14-59) U/L Alkaline Phosphatase (46-116) U/L C-Reactive Protein (0.0-0.3) mg/dL Total Protein (6.4-8.2) g/dL Albumin (3.4-5.0) g/dL Prealbumin (20-40) mg/dL Juzrm-5-Yhuzebsuxiu (90-200) mg/dL Vitamin B12 (193-986) pg/mL 25-OH Vitamin D Total (30-100) ng/mL 13.8 L Folate (8.6-20.0) ng/mL Procalcitonin ng/mL TSH (0.36-3.74) uIU/mL Free T4 (0.76-1.46) ng/dL Total T3 (97-169) ng/dL Thyroid Stim Immunoglob (<=1.3) TSI index Urine Color (Yellow) Urine Clarity (Clear) Urine pH (5-8) Ur Specific [place] (1.005-1.025) Urine Protein (Negative) mg/dL Urine Ketones (Negative) mg/dL Urine Blood (Negative) Urine Nitrite (Negative) Urine Bilirubin (Negative) Urine Urobilinogen (Up TO 0.2) EU/dL Ur Leukocyte Esterase (Negative) Urine RBC (0-2) HPF Urine WBC (0-5) HPF Ur Epithelial Cells (Negative) HPF Urine Crystals (Negative) HPF Urine Bacteria (Negative) HPF Urine Casts (Negative) LPF Urine Mucus (Negative) Urine Other (Negative) Ur Culture Indicated? Urine Glucose (Negative) mg/dL Stool Calprotectin mcg/g Vancomycin Trough (10.0-20.0) ug/mL Urine Opiates Screen (Negative) Urine Methadone Screen (Negative) Ur Barbiturates Screen (Negative) Ur Tricyclics Screen (Negative) Ur Amphetamines Screen (Negative) U Benzodiazepines Scrn (Negative) Urine Cocaine Screen (Negative) Ur THC Screen (Negative) IgG (610-1,616) mg/dL IgA (85-499) mg/dL IgM (35-242) mg/dL IgE (<158) IU/mL NINI Titer NINI Titer 2 NINI Titer 3 NINI Interpretation (Negative) Thyroperoxidase Ab (<=60) IU/mL Thyroglobulin Antibody (<=60) IU/mL COVID-19 Source SARS-CoV-2 (PCR) Hep Bs Antigen (Negative) Hep Bs Antibody (See Note) Hep Bs Antibody, Quant (See Note) mIU/mL Hep B Core Total Ab (Negative) Hepatitis C Antibody (Negative) HIV 1&2 Ag/Ab, 4th Gen (Negative) Negative Urine Legionella Ag (Negative) Add-On Test Request Patient ABO/Rh Antibody Screen Range/Units 11/14/21 11/14/21 11/14/21 06:35 06:35 06:35 WBC (4.4-10.8) 10^3/uL RBC (3.93-5.22) 10^6/uL Hgb (11.2-15.7) g/dL Hct (36.0-46.0) % MCV (80-95) fL MCH (27.0-33.0) pg MCHC (32.0-36.0) % RDW (11.7-14.6) % Plt Count (130-400) 10^3/uL MPV (8.0-11.0) fL Immature Gran % Neutrophils % Band Neutrophils % Lymphocytes % Monocytes % Eosinophils % Basophils % Nucleated RBC % % Absolute Neutrophils (1.2-6.7) 10^3/uL Absolute Lymphocytes (1.2-3.4) 10^3/uL Absolute Monocytes (0.1-0.8) 10^3/uL Absolute Eosinophils (0.0-0.7) 10^3/uL Absolute Basophils (0.0-0.2) 10^3/uL RBC Morphology ESR (0-20) mm/hr D-Dimer (<500) ng/mlFEU VBG Lactate (0.6-1.4) mmol/L Sodium (136-145) mmol/L 141 Potassium (3.5-5.1) mmol/L 3.5 Chloride (98-107) mmol/L 111 H Carbon Dioxide (21.0-32.0) mmol/L 20.5 L Anion Gap (3-11) mmol/L 9.5 BUN (7-18) mg/dL 11 D Creatinine (0.55-1.02) mg/dL 0.6 Estimated GFR/1.73 m2 (mL/min/1.73m2) >= 60.00 Glucose (74-106) mg/dL 84 Hemoglobin A1c (<5.7) % Calcium (8.5-10.1) mg/dL 9.0 Phosphorus (2.6-4.7) mg/dL Magnesium (1.8-2.4) mg/dL Total Bilirubin (0.2-1.0) mg/dL 0.2 GGT (5-55) U/L AST (15-37) U/L 12 L ALT (14-59) U/L 15 Alkaline Phosphatase (46-116) U/L 91 C-Reactive Protein (0.0-0.3) mg/dL Total Protein (6.4-8.2) g/dL 6.4 Albumin (3.4-5.0) g/dL 1.8 L Prealbumin (20-40) mg/dL Jbdib-0-Uhdudcuenlr (90-200) mg/dL Vitamin B12 (193-986) pg/mL 25-OH Vitamin D Total (30-100) ng/mL Folate (8.6-20.0) ng/mL Procalcitonin ng/mL TSH (0.36-3.74) uIU/mL Free T4 (0.76-1.46) ng/dL Total T3 (97-169) ng/dL Thyroid Stim Immunoglob (<=1.3) TSI index Urine Color (Yellow) Urine Clarity (Clear) Urine pH (5-8) Ur Specific [place] (1.005-1.025) Urine Protein (Negative) mg/dL Urine Ketones (Negative) mg/dL Urine Blood (Negative) Urine Nitrite (Negative) Urine Bilirubin (Negative) Urine Urobilinogen (Up TO 0.2) EU/dL Ur Leukocyte Esterase (Negative) Urine RBC (0-2) HPF Urine WBC (0-5) HPF Ur Epithelial Cells (Negative) HPF Urine Crystals (Negative) HPF Urine Bacteria (Negative) HPF Urine Casts (Negative) LPF Urine Mucus (Negative) Urine Other (Negative) Ur Culture Indicated? Urine Glucose (Negative) mg/dL Stool Calprotectin mcg/g Vancomycin Trough (10.0-20.0) ug/mL Urine Opiates Screen (Negative) Urine Methadone Screen (Negative) Ur Barbiturates Screen (Negative) Ur Tricyclics Screen (Negative) Ur Amphetamines Screen (Negative) U Benzodiazepines Scrn (Negative) Urine Cocaine Screen (Negative) Ur THC Screen (Negative) IgG (610-1,616) mg/dL IgA (85-499) mg/dL IgM (35-242) mg/dL IgE (<158) IU/mL NINI Titer 1:80 Speckled NINI Titer 2 Not Applicable NINI Titer 3 Not Applicable NINI Interpretation (Negative) Positive A Thyroperoxidase Ab (<=60) IU/mL Thyroglobulin Antibody (<=60) IU/mL COVID-19 Source SARS-CoV-2 (PCR) Hep Bs Antigen (Negative) Negative Hep Bs Antibody (See Note) Positive Hep Bs Antibody, Quant (See Note) mIU/mL 22.8 Hep B Core Total Ab (Negative) Negative Hepatitis C Antibody (Negative) Negative HIV 1&2 Ag/Ab, 4th Gen (Negative) Urine Legionella Ag (Negative) Add-On Test Request Patient ABO/Rh Antibody Screen Range/Units 11/14/21 11/14/21 11/14/21 06:35 06:35 06:35 WBC (4.4-10.8) 10^3/uL 13.86 H D RBC (3.93-5.22) 10^6/uL 3.54 L Hgb (11.2-15.7) g/dL 9.3 L D Hct (36.0-46.0) % 31.4 L MCV (80-95) fL 88.7 D MCH (27.0-33.0) pg 26.3 L MCHC (32.0-36.0) % 29.6 L RDW (11.7-14.6) % 16.6 H Plt Count (130-400) 10^3/uL 381 D MPV (8.0-11.0) fL 9.6 Immature Gran % 0.4 Neutrophils % 78.5 Band Neutrophils % Lymphocytes % 13.1 Monocytes % 5.6 Eosinophils % 2.2 Basophils % 0.2 Nucleated RBC % % 0 Absolute Neutrophils (1.2-6.7) 10^3/uL 10.88 H Absolute Lymphocytes (1.2-3.4) 10^3/uL 1.82 Absolute Monocytes (0.1-0.8) 10^3/uL 0.78 Absolute Eosinophils (0.0-0.7) 10^3/uL 0.30 Absolute Basophils (0.0-0.2) 10^3/uL 0.03 RBC Morphology ESR (0-20) mm/hr D-Dimer (<500) ng/mlFEU VBG Lactate (0.6-1.4) mmol/L Sodium (136-145) mmol/L Potassium (3.5-5.1) mmol/L Chloride (98-107) mmol/L Carbon Dioxide (21.0-32.0) mmol/L Anion Gap (3-11) mmol/L BUN (7-18) mg/dL Creatinine (0.55-1.02) mg/dL Estimated GFR/1.73 m2 (mL/min/1.73m2) Glucose (74-106) mg/dL Hemoglobin A1c (<5.7) % Calcium (8.5-10.1) mg/dL Phosphorus (2.6-4.7) mg/dL 4.7 Magnesium (1.8-2.4) mg/dL Total Bilirubin (0.2-1.0) mg/dL GGT (5-55) U/L AST (15-37) U/L ALT (14-59) U/L Alkaline Phosphatase (46-116) U/L C-Reactive Protein (0.0-0.3) mg/dL Total Protein (6.4-8.2) g/dL Albumin (3.4-5.0) g/dL Prealbumin (20-40) mg/dL Jkdzw-6-Grebxjshugp (90-200) mg/dL Vitamin B12 (193-986) pg/mL 25-OH Vitamin D Total (30-100) ng/mL Folate (8.6-20.0) ng/mL Procalcitonin ng/mL TSH (0.36-3.74) uIU/mL Free T4 (0.76-1.46) ng/dL Total T3 (97-169) ng/dL Thyroid Stim Immunoglob (<=1.3) TSI index Urine Color (Yellow) Urine Clarity (Clear) Urine pH (5-8) Ur Specific [place] (1.005-1.025) Urine Protein (Negative) mg/dL Urine Ketones (Negative) mg/dL Urine Blood (Negative) Urine Nitrite (Negative) Urine Bilirubin (Negative) Urine Urobilinogen (Up TO 0.2) EU/dL Ur Leukocyte Esterase (Negative) Urine RBC (0-2) HPF Urine WBC (0-5) HPF Ur Epithelial Cells (Negative) HPF Urine Crystals (Negative) HPF Urine Bacteria (Negative) HPF Urine Casts (Negative) LPF Urine Mucus (Negative) Urine Other (Negative) Ur Culture Indicated? Urine Glucose (Negative) mg/dL Stool Calprotectin mcg/g Vancomycin Trough (10.0-20.0) ug/mL Urine Opiates Screen (Negative) Urine Methadone Screen (Negative) Ur Barbiturates Screen (Negative) Ur Tricyclics Screen (Negative) Ur Amphetamines Screen (Negative) U Benzodiazepines Scrn (Negative) Urine Cocaine Screen (Negative) Ur THC Screen (Negative) IgG (610-1,616) mg/dL IgA (85-499) mg/dL IgM (35-242) mg/dL IgE (<158) IU/mL NINI Titer NINI Titer 2 NINI Titer 3 NINI Interpretation (Negative) Thyroperoxidase Ab (<=60) IU/mL Thyroglobulin Antibody (<=60) IU/mL COVID-19 Source SARS-CoV-2 (PCR) Hep Bs Antigen (Negative) Hep Bs Antibody (See Note) Hep Bs Antibody, Quant (See Note) mIU/mL Hep B Core Total Ab (Negative) Hepatitis C Antibody (Negative) HIV 1&2 Ag/Ab, 4th Gen (Negative) Urine Legionella Ag (Negative) Add-On Test Request DONE Patient ABO/Rh Antibody Screen Range/Units 11/14/21 11/14/21 11/14/21 06:35 06:35 06:35 WBC (4.4-10.8) 10^3/uL RBC (3.93-5.22) 10^6/uL Hgb (11.2-15.7) g/dL Hct (36.0-46.0) % MCV (80-95) fL MCH (27.0-33.0) pg MCHC (32.0-36.0) % RDW (11.7-14.6) % Plt Count (130-400) 10^3/uL MPV (8.0-11.0) fL Immature Gran % Neutrophils % Band Neutrophils % Lymphocytes % Monocytes % Eosinophils % Basophils % Nucleated RBC % % Absolute Neutrophils (1.2-6.7) 10^3/uL Absolute Lymphocytes (1.2-3.4) 10^3/uL Absolute Monocytes (0.1-0.8) 10^3/uL Absolute Eosinophils (0.0-0.7) 10^3/uL Absolute Basophils (0.0-0.2) 10^3/uL RBC Morphology ESR (0-20) mm/hr D-Dimer (<500) ng/mlFEU VBG Lactate (0.6-1.4) mmol/L Sodium (136-145) mmol/L Potassium (3.5-5.1) mmol/L Chloride (98-107) mmol/L Carbon Dioxide (21.0-32.0) mmol/L Anion Gap (3-11) mmol/L BUN (7-18) mg/dL Creatinine (0.55-1.02) mg/dL Estimated GFR/1.73 m2 (mL/min/1.73m2) Glucose (74-106) mg/dL Hemoglobin A1c (<5.7) % Calcium (8.5-10.1) mg/dL Phosphorus (2.6-4.7) mg/dL Magnesium (1.8-2.4) mg/dL Total Bilirubin (0.2-1.0) mg/dL GGT (5-55) U/L AST (15-37) U/L ALT (14-59) U/L Alkaline Phosphatase (46-116) U/L C-Reactive Protein (0.0-0.3) mg/dL Total Protein (6.4-8.2) g/dL Albumin (3.4-5.0) g/dL Prealbumin (20-40) mg/dL Hhlhs-3-Tmgmqimcvqp (90-200) mg/dL Vitamin B12 (193-986) pg/mL 25-OH Vitamin D Total (30-100) ng/mL Folate (8.6-20.0) ng/mL Procalcitonin ng/mL 0.1 TSH (0.36-3.74) uIU/mL < 0.01 L Free T4 (0.76-1.46) ng/dL 2.75 H Total T3 (97-169) ng/dL 166 Thyroid Stim Immunoglob (<=1.3) TSI index Urine Color (Yellow) Urine Clarity (Clear) Urine pH (5-8) Ur Specific [place] (1.005-1.025) Urine Protein (Negative) mg/dL Urine Ketones (Negative) mg/dL Urine Blood (Negative) Urine Nitrite (Negative) Urine Bilirubin (Negative) Urine Urobilinogen (Up TO 0.2) EU/dL Ur Leukocyte Esterase (Negative) Urine RBC (0-2) HPF Urine WBC (0-5) HPF Ur Epithelial Cells (Negative) HPF Urine Crystals (Negative) HPF Urine Bacteria (Negative) HPF Urine Casts (Negative) LPF Urine Mucus (Negative) Urine Other (Negative) Ur Culture Indicated? Urine Glucose (Negative) mg/dL Stool Calprotectin mcg/g Vancomycin Trough (10.0-20.0) ug/mL Urine Opiates Screen (Negative) Urine Methadone Screen (Negative) Ur Barbiturates Screen (Negative) Ur Tricyclics Screen (Negative) Ur Amphetamines Screen (Negative) U Benzodiazepines Scrn (Negative) Urine Cocaine Screen (Negative) Ur THC Screen (Negative) IgG (610-1,616) mg/dL IgA (85-499) mg/dL IgM (35-242) mg/dL IgE (<158) IU/mL NINI Titer NINI Titer 2 NINI Titer 3 NINI Interpretation (Negative) Thyroperoxidase Ab (<=60) IU/mL <28 Thyroglobulin Antibody (<=60) IU/mL <15 COVID-19 Source SARS-CoV-2 (PCR) Hep Bs Antigen (Negative) Hep Bs Antibody (See Note) Hep Bs Antibody, Quant (See Note) mIU/mL Hep B Core Total Ab (Negative) Hepatitis C Antibody (Negative) HIV 1&2 Ag/Ab, 4th Gen (Negative) Urine Legionella Ag (Negative) Add-On Test Request Patient ABO/Rh Antibody Screen Range/Units 11/14/21 11/15/21 11/15/21 10:43 06:42 06:42 WBC (4.4-10.8) 10^3/uL 11.74 H RBC (3.93-5.22) 10^6/uL 3.66 L Hgb (11.2-15.7) g/dL 9.5 L Hct (36.0-46.0) % 31.9 L MCV (80-95) fL 87.2 MCH (27.0-33.0) pg 26.0 L MCHC (32.0-36.0) % 29.8 L RDW (11.7-14.6) % 16.7 H Plt Count (130-400) 10^3/uL 399 MPV (8.0-11.0) fL 9.3 Immature Gran % 0.3 Neutrophils % 81.4 Band Neutrophils % Lymphocytes % 12.1 Monocytes % 4.6 Eosinophils % 1.3 Basophils % 0.3 Nucleated RBC % % 0 Absolute Neutrophils (1.2-6.7) 10^3/uL 9.56 H Absolute Lymphocytes (1.2-3.4) 10^3/uL 1.42 Absolute Monocytes (0.1-0.8) 10^3/uL 0.54 Absolute Eosinophils (0.0-0.7) 10^3/uL 0.15 Absolute Basophils (0.0-0.2) 10^3/uL 0.04 RBC Morphology ESR (0-20) mm/hr D-Dimer (<500) ng/mlFEU VBG Lactate (0.6-1.4) mmol/L Sodium (136-145) mmol/L 141 Potassium (3.5-5.1) mmol/L 3.4 L Chloride (98-107) mmol/L 110 H Carbon Dioxide (21.0-32.0) mmol/L 24.4 Anion Gap (3-11) mmol/L 6.6 BUN (7-18) mg/dL 11 Creatinine (0.55-1.02) mg/dL 0.4 L Estimated GFR/1.73 m2 (mL/min/1.73m2) >= 60.00 Glucose (74-106) mg/dL 98 Hemoglobin A1c (<5.7) % Calcium (8.5-10.1) mg/dL 8.5 Phosphorus (2.6-4.7) mg/dL Magnesium (1.8-2.4) mg/dL 1.6 L Total Bilirubin (0.2-1.0) mg/dL GGT (5-55) U/L AST (15-37) U/L ALT (14-59) U/L Alkaline Phosphatase (46-116) U/L C-Reactive Protein (0.0-0.3) mg/dL 11.77 H Total Protein (6.4-8.2) g/dL Albumin (3.4-5.0) g/dL Prealbumin (20-40) mg/dL Nvgyb-6-Bocaxtejbxl (90-200) mg/dL Vitamin B12 (193-986) pg/mL 25-OH Vitamin D Total (30-100) ng/mL Folate (8.6-20.0) ng/mL Procalcitonin ng/mL TSH (0.36-3.74) uIU/mL Free T4 (0.76-1.46) ng/dL Total T3 (97-169) ng/dL Thyroid Stim Immunoglob (<=1.3) TSI index Urine Color (Yellow) Urine Clarity (Clear) Urine pH (5-8) Ur Specific [place] (1.005-1.025) Urine Protein (Negative) mg/dL Urine Ketones (Negative) mg/dL Urine Blood (Negative) Urine Nitrite (Negative) Urine Bilirubin (Negative) Urine Urobilinogen (Up TO 0.2) EU/dL Ur Leukocyte Esterase (Negative) Urine RBC (0-2) HPF Urine WBC (0-5) HPF Ur Epithelial Cells (Negative) HPF Urine Crystals (Negative) HPF Urine Bacteria (Negative) HPF Urine Casts (Negative) LPF Urine Mucus (Negative) Urine Other (Negative) Ur Culture Indicated? Urine Glucose (Negative) mg/dL Stool Calprotectin mcg/g Vancomycin Trough (10.0-20.0) ug/mL 13.0 Urine Opiates Screen (Negative) Urine Methadone Screen (Negative) Ur Barbiturates Screen (Negative) Ur Tricyclics Screen (Negative) Ur Amphetamines Screen (Negative) U Benzodiazepines Scrn (Negative) Urine Cocaine Screen (Negative) Ur THC Screen (Negative) IgG (610-1,616) mg/dL IgA (85-499) mg/dL IgM (35-242) mg/dL IgE (<158) IU/mL NINI Titer NINI Titer 2 NINI Titer 3 NINI Interpretation (Negative) Thyroperoxidase Ab (<=60) IU/mL Thyroglobulin Antibody (<=60) IU/mL COVID-19 Source SARS-CoV-2 (PCR) Hep Bs Antigen (Negative) Hep Bs Antibody (See Note) Hep Bs Antibody, Quant (See Note) mIU/mL Hep B Core Total Ab (Negative) Hepatitis C Antibody (Negative) HIV 1&2 Ag/Ab, 4th Gen (Negative) Urine Legionella Ag (Negative) Add-On Test Request Patient ABO/Rh Antibody Screen Range/Units 11/15/21 11/15/21 11/15/21 06:42 06:42 13:52 WBC (4.4-10.8) 10^3/uL RBC (3.93-5.22) 10^6/uL Hgb (11.2-15.7) g/dL Hct (36.0-46.0) % MCV (80-95) fL MCH (27.0-33.0) pg MCHC (32.0-36.0) % RDW (11.7-14.6) % Plt Count (130-400) 10^3/uL MPV (8.0-11.0) fL Immature Gran % Neutrophils % Band Neutrophils % Lymphocytes % Monocytes % Eosinophils % Basophils % Nucleated RBC % % Absolute Neutrophils (1.2-6.7) 10^3/uL Absolute Lymphocytes (1.2-3.4) 10^3/uL Absolute Monocytes (0.1-0.8) 10^3/uL Absolute Eosinophils (0.0-0.7) 10^3/uL Absolute Basophils (0.0-0.2) 10^3/uL RBC Morphology ESR (0-20) mm/hr D-Dimer (<500) ng/mlFEU VBG Lactate (0.6-1.4) mmol/L Sodium (136-145) mmol/L Potassium (3.5-5.1) mmol/L Chloride (98-107) mmol/L Carbon Dioxide (21.0-32.0) mmol/L Anion Gap (3-11) mmol/L BUN (7-18) mg/dL Creatinine (0.55-1.02) mg/dL Estimated GFR/1.73 m2 (mL/min/1.73m2) Glucose (74-106) mg/dL Hemoglobin A1c (<5.7) % Calcium (8.5-10.1) mg/dL Phosphorus (2.6-4.7) mg/dL Magnesium (1.8-2.4) mg/dL Total Bilirubin (0.2-1.0) mg/dL GGT (5-55) U/L AST (15-37) U/L ALT (14-59) U/L Alkaline Phosphatase (46-116) U/L C-Reactive Protein (0.0-0.3) mg/dL Total Protein (6.4-8.2) g/dL Albumin (3.4-5.0) g/dL Prealbumin (20-40) mg/dL Fbujm-3-Regzsazidlr (90-200) mg/dL Vitamin B12 (193-986) pg/mL 25-OH Vitamin D Total (30-100) ng/mL Folate (8.6-20.0) ng/mL Procalcitonin ng/mL TSH (0.36-3.74) uIU/mL Free T4 (0.76-1.46) ng/dL Total T3 (97-169) ng/dL Thyroid Stim Immunoglob (<=1.3) TSI index <1.0 Urine Color (Yellow) Urine Clarity (Clear) Urine pH (5-8) Ur Specific [place] (1.005-1.025) Urine Protein (Negative) mg/dL Urine Ketones (Negative) mg/dL Urine Blood (Negative) Urine Nitrite (Negative) Urine Bilirubin (Negative) Urine Urobilinogen (Up TO 0.2) EU/dL Ur Leukocyte Esterase (Negative) Urine RBC (0-2) HPF Urine WBC (0-5) HPF Ur Epithelial Cells (Negative) HPF Urine Crystals (Negative) HPF Urine Bacteria (Negative) HPF Urine Casts (Negative) LPF Urine Mucus (Negative) Urine Other (Negative) Ur Culture Indicated? Urine Glucose (Negative) mg/dL Stool Calprotectin mcg/g 352 H Vancomycin Trough (10.0-20.0) ug/mL Urine Opiates Screen (Negative) Urine Methadone Screen (Negative) Ur Barbiturates Screen (Negative) Ur Tricyclics Screen (Negative) Ur Amphetamines Screen (Negative) U Benzodiazepines Scrn (Negative) Urine Cocaine Screen (Negative) Ur THC Screen (Negative) IgG (610-1,616) mg/dL IgA (85-499) mg/dL IgM (35-242) mg/dL IgE (<158) IU/mL NINI Titer NINI Titer 2 NINI Titer 3 NINI Interpretation (Negative) Thyroperoxidase Ab (<=60) IU/mL Thyroglobulin Antibody (<=60) IU/mL COVID-19 Source SARS-CoV-2 (PCR) Hep Bs Antigen (Negative) Hep Bs Antibody (See Note) Hep Bs Antibody, Quant (See Note) mIU/mL Hep B Core Total Ab (Negative) Hepatitis C Antibody (Negative) HIV 1&2 Ag/Ab, 4th Gen (Negative) Urine Legionella Ag (Negative) Add-On Test Request DONE Patient ABO/Rh Antibody Screen Range/Units 11/15/21 11/16/21 11/16/21 16:00 06:32 06:32 WBC (4.4-10.8) 10^3/uL 9.52 RBC (3.93-5.22) 10^6/uL 3.51 L Hgb (11.2-15.7) g/dL 9.2 L Hct (36.0-46.0) % 30.1 L MCV (80-95) fL 85.8 MCH (27.0-33.0) pg 26.2 L MCHC (32.0-36.0) % 30.6 L RDW (11.7-14.6) % 16.7 H Plt Count (130-400) 10^3/uL 394 MPV (8.0-11.0) fL 9.4 Immature Gran % 0.3 Neutrophils % 73.4 Band Neutrophils % Lymphocytes % 16.1 Monocytes % 5.6 Eosinophils % 4.3 Basophils % 0.3 Nucleated RBC % % 0 Absolute Neutrophils (1.2-6.7) 10^3/uL 6.99 H Absolute Lymphocytes (1.2-3.4) 10^3/uL 1.53 Absolute Monocytes (0.1-0.8) 10^3/uL 0.53 Absolute Eosinophils (0.0-0.7) 10^3/uL 0.41 Absolute Basophils (0.0-0.2) 10^3/uL 0.03 RBC Morphology ESR (0-20) mm/hr D-Dimer (<500) ng/mlFEU VBG Lactate (0.6-1.4) mmol/L Sodium (136-145) mmol/L 142 Potassium (3.5-5.1) mmol/L 3.6 Chloride (98-107) mmol/L 109 H Carbon Dioxide (21.0-32.0) mmol/L 26.7 Anion Gap (3-11) mmol/L 6.3 BUN (7-18) mg/dL 9 Creatinine (0.55-1.02) mg/dL 0.4 L Estimated GFR/1.73 m2 (mL/min/1.73m2) >= 60.00 Glucose (74-106) mg/dL 87 Hemoglobin A1c (<5.7) % Calcium (8.5-10.1) mg/dL 8.6 Phosphorus (2.6-4.7) mg/dL Magnesium (1.8-2.4) mg/dL 1.6 L Total Bilirubin (0.2-1.0) mg/dL GGT (5-55) U/L AST (15-37) U/L ALT (14-59) U/L Alkaline Phosphatase (46-116) U/L C-Reactive Protein (0.0-0.3) mg/dL 10.44 H Total Protein (6.4-8.2) g/dL Albumin (3.4-5.0) g/dL Prealbumin (20-40) mg/dL Piobh-3-Hqasgzjznsu (90-200) mg/dL Vitamin B12 (193-986) pg/mL 25-OH Vitamin D Total (30-100) ng/mL Folate (8.6-20.0) ng/mL Procalcitonin ng/mL TSH (0.36-3.74) uIU/mL Free T4 (0.76-1.46) ng/dL Total T3 (97-169) ng/dL Thyroid Stim Immunoglob (<=1.3) TSI index Urine Color (Yellow) Urine Clarity (Clear) Urine pH (5-8) Ur Specific [place] (1.005-1.025) Urine Protein (Negative) mg/dL Urine Ketones (Negative) mg/dL Urine Blood (Negative) Urine Nitrite (Negative) Urine Bilirubin (Negative) Urine Urobilinogen (Up TO 0.2) EU/dL Ur Leukocyte Esterase (Negative) Urine RBC (0-2) HPF Urine WBC (0-5) HPF Ur Epithelial Cells (Negative) HPF Urine Crystals (Negative) HPF Urine Bacteria (Negative) HPF Urine Casts (Negative) LPF Urine Mucus (Negative) Urine Other (Negative) Ur Culture Indicated? Urine Glucose (Negative) mg/dL Stool Calprotectin mcg/g Vancomycin Trough (10.0-20.0) ug/mL Cancelled Urine Opiates Screen (Negative) Urine Methadone Screen (Negative) Ur Barbiturates Screen (Negative) Ur Tricyclics Screen (Negative) Ur Amphetamines Screen (Negative) U Benzodiazepines Scrn (Negative) Urine Cocaine Screen (Negative) Ur THC Screen (Negative) IgG (610-1,616) mg/dL IgA (85-499) mg/dL IgM (35-242) mg/dL IgE (<158) IU/mL NINI Titer NINI Titer 2 NINI Titer 3 NINI Interpretation (Negative) Thyroperoxidase Ab (<=60) IU/mL Thyroglobulin Antibody (<=60) IU/mL COVID-19 Source SARS-CoV-2 (PCR) Hep Bs Antigen (Negative) Hep Bs Antibody (See Note) Hep Bs Antibody, Quant (See Note) mIU/mL Hep B Core Total Ab (Negative) Hepatitis C Antibody (Negative) HIV 1&2 Ag/Ab, 4th Gen (Negative) Urine Legionella Ag (Negative) Add-On Test Request Patient ABO/Rh Antibody Screen Range/Units 11/17/21 11/17/21 11/17/21 06:02 06:02 06:02 WBC (4.4-10.8) 10^3/uL 8.09 RBC (3.93-5.22) 10^6/uL 3.64 L Hgb (11.2-15.7) g/dL 9.5 L Hct (36.0-46.0) % 30.9 L MCV (80-95) fL 84.9 MCH (27.0-33.0) pg 26.1 L MCHC (32.0-36.0) % 30.7 L RDW (11.7-14.6) % 16.8 H Plt Count (130-400) 10^3/uL 395 MPV (8.0-11.0) fL 9.1 Immature Gran % 0.1 Neutrophils % 70.2 Band Neutrophils % Lymphocytes % 18.5 Monocytes % 5.8 Eosinophils % 5.3 Basophils % 0.1 Nucleated RBC % % 0 Absolute Neutrophils (1.2-6.7) 10^3/uL 5.67 Absolute Lymphocytes (1.2-3.4) 10^3/uL 1.50 Absolute Monocytes (0.1-0.8) 10^3/uL 0.47 Absolute Eosinophils (0.0-0.7) 10^3/uL 0.43 Absolute Basophils (0.0-0.2) 10^3/uL 0.01 RBC Morphology ESR (0-20) mm/hr D-Dimer (<500) ng/mlFEU VBG Lactate (0.6-1.4) mmol/L Sodium (136-145) mmol/L Potassium (3.5-5.1) mmol/L Chloride (98-107) mmol/L Carbon Dioxide (21.0-32.0) mmol/L Anion Gap (3-11) mmol/L BUN (7-18) mg/dL Creatinine (0.55-1.02) mg/dL Estimated GFR/1.73 m2 (mL/min/1.73m2) Glucose (74-106) mg/dL Hemoglobin A1c (<5.7) % Calcium (8.5-10.1) mg/dL Phosphorus (2.6-4.7) mg/dL Magnesium (1.8-2.4) mg/dL 2.0 Total Bilirubin (0.2-1.0) mg/dL GGT (5-55) U/L AST (15-37) U/L ALT (14-59) U/L Alkaline Phosphatase (46-116) U/L C-Reactive Protein (0.0-0.3) mg/dL 8.33 H Total Protein (6.4-8.2) g/dL Albumin (3.4-5.0) g/dL Prealbumin (20-40) mg/dL 7 L [id number] (90-200) mg/dL Vitamin B12 (193-986) pg/mL 25-OH Vitamin D Total (30-100) ng/mL Folate (8.6-20.0) ng/mL Procalcitonin ng/mL TSH (0.36-3.74) uIU/mL Free T4 (0.76-1.46) ng/dL Total T3 (97-169) ng/dL Thyroid Stim Immunoglob (<=1.3) TSI index Urine Color (Yellow) Urine Clarity (Clear) Urine pH (5-8) Ur Specific [place] (1.005-1.025) Urine Protein (Negative) mg/dL Urine Ketones (Negative) mg/dL Urine Blood (Negative) Urine Nitrite (Negative) Urine Bilirubin (Negative) Urine Urobilinogen (Up TO 0.2) EU/dL Ur Leukocyte Esterase (Negative) Urine RBC (0-2) HPF Urine WBC (0-5) HPF Ur Epithelial Cells (Negative) HPF Urine Crystals (Negative) HPF Urine Bacteria (Negative) HPF Urine Casts (Negative) LPF Urine Mucus (Negative) Urine Other (Negative) Ur Culture Indicated? Urine Glucose (Negative) mg/dL Stool Calprotectin mcg/g Vancomycin Trough (10.0-20.0) ug/mL Urine Opiates Screen (Negative) Urine Methadone Screen (Negative) Ur Barbiturates Screen (Negative) Ur Tricyclics Screen (Negative) Ur Amphetamines Screen (Negative) U Benzodiazepines Scrn (Negative) Urine Cocaine Screen (Negative) Ur THC Screen (Negative) IgG (610-1,616) mg/dL IgA (85-499) mg/dL IgM (35-242) mg/dL IgE (<158) IU/mL NINI Titer NINI Titer 2 NINI Titer 3 NINI Interpretation (Negative) Thyroperoxidase Ab (<=60) IU/mL Thyroglobulin Antibody (<=60) IU/mL COVID-19 Source SARS-CoV-2 (PCR) Hep Bs Antigen (Negative) Hep Bs Antibody (See Note) Hep Bs Antibody, Quant (See Note) mIU/mL Hep B Core Total Ab (Negative) Hepatitis C Antibody (Negative) HIV 1&2 Ag/Ab, 4th Gen (Negative) Urine Legionella Ag (Negative) Add-On Test Request Patient ABO/Rh Antibody Screen Range/Units 11/17/21 11/19/21 11/19/21 06:02 06:30 06:30 WBC (4.4-10.8) 10^3/uL 10.95 H RBC (3.93-5.22) 10^6/uL 3.66 L Hgb (11.2-15.7) g/dL 9.6 L Hct (36.0-46.0) % 30.9 L MCV (80-95) fL 84.4 MCH (27.0-33.0) pg 26.2 L MCHC (32.0-36.0) % 31.1 L RDW (11.7-14.6) % 16.7 H Plt Count (130-400) 10^3/uL 529 H MPV (8.0-11.0) fL 9.2 Immature Gran % 0.3 Neutrophils % 67.3 Band Neutrophils % Lymphocytes % 20.9 Monocytes % 5.1 Eosinophils % 6.1 Basophils % 0.3 Nucleated RBC % % 0 Absolute Neutrophils (1.2-6.7) 10^3/uL 7.37 H Absolute Lymphocytes (1.2-3.4) 10^3/uL 2.29 Absolute Monocytes (0.1-0.8) 10^3/uL 0.56 Absolute Eosinophils (0.0-0.7) 10^3/uL 0.67 Absolute Basophils (0.0-0.2) 10^3/uL 0.03 RBC Morphology ESR (0-20) mm/hr D-Dimer (<500) ng/mlFEU VBG Lactate (0.6-1.4) mmol/L Sodium (136-145) mmol/L 140 139 Potassium (3.5-5.1) mmol/L 4.1 4.2 Chloride (98-107) mmol/L 107 104 Carbon Dioxide (21.0-32.0) mmol/L 28.4 29.8 Anion Gap (3-11) mmol/L 4.6 5.2 BUN (7-18) mg/dL 11 22 H D Creatinine (0.55-1.02) mg/dL 0.5 L 0.5 L Estimated GFR/1.73 m2 (mL/min/1.73m2) >= 60.00 >= 60.00 Glucose (74-106) mg/dL 81 88 Hemoglobin A1c (<5.7) % Calcium (8.5-10.1) mg/dL 8.7 8.9 Phosphorus (2.6-4.7) mg/dL Magnesium (1.8-2.4) mg/dL Total Bilirubin (0.2-1.0) mg/dL 0.1 L GGT (5-55) U/L AST (15-37) U/L 21 ALT (14-59) U/L 16 Alkaline Phosphatase (46-116) U/L 107 C-Reactive Protein (0.0-0.3) mg/dL 5.05 H Total Protein (6.4-8.2) g/dL 7.1 Albumin (3.4-5.0) g/dL 1.8 L Prealbumin (20-40) mg/dL Fxquy-0-Jchliyregsf (90-200) mg/dL Vitamin B12 (193-986) pg/mL 25-OH Vitamin D Total (30-100) ng/mL Folate (8.6-20.0) ng/mL Procalcitonin ng/mL TSH (0.36-3.74) uIU/mL Free T4 (0.76-1.46) ng/dL Total T3 (97-169) ng/dL Thyroid Stim Immunoglob (<=1.3) TSI index Urine Color (Yellow) Urine Clarity (Clear) Urine pH (5-8) Ur Specific [place] (1.005-1.025) Urine Protein (Negative) mg/dL Urine Ketones (Negative) mg/dL Urine Blood (Negative) Urine Nitrite (Negative) Urine Bilirubin (Negative) Urine Urobilinogen (Up TO 0.2) EU/dL Ur Leukocyte Esterase (Negative) Urine RBC (0-2) HPF Urine WBC (0-5) HPF Ur Epithelial Cells (Negative) HPF Urine Crystals (Negative) HPF Urine Bacteria (Negative) HPF Urine Casts (Negative) LPF Urine Mucus (Negative) Urine Other (Negative) Ur Culture Indicated? Urine Glucose (Negative) mg/dL Stool Calprotectin mcg/g Vancomycin Trough (10.0-20.0) ug/mL Urine Opiates Screen (Negative) Urine Methadone Screen (Negative) Ur Barbiturates Screen (Negative) Ur Tricyclics Screen (Negative) Ur Amphetamines Screen (Negative) U Benzodiazepines Scrn (Negative) Urine Cocaine Screen (Negative) Ur THC Screen (Negative) IgG (610-1,616) mg/dL IgA (85-499) mg/dL IgM (35-242) mg/dL IgE (<158) IU/mL NINI Titer NINI Titer 2 NINI Titer 3 NINI Interpretation (Negative) Thyroperoxidase Ab (<=60) IU/mL Thyroglobulin Antibody (<=60) IU/mL COVID-19 Source SARS-CoV-2 (PCR) Hep Bs Antigen (Negative) Hep Bs Antibody (See Note) Hep Bs Antibody, Quant (See Note) mIU/mL Hep B Core Total Ab (Negative) Hepatitis C Antibody (Negative) HIV 1&2 Ag/Ab, 4th Gen (Negative) Urine Legionella Ag (Negative) Add-On Test Request Patient ABO/Rh Antibody Screen Range/Units 11/22/21 11/22/21 11/22/21 11:20 19:00 Unknown WBC (4.4-10.8) 10^3/uL 18.78 H RBC (3.93-5.22) 10^6/uL 3.36 L Hgb (11.2-15.7) g/dL 8.8 L Hct (36.0-46.0) % 29.8 L MCV (80-95) fL 88.7 MCH (27.0-33.0) pg 26.2 L MCHC (32.0-36.0) % 29.5 L RDW (11.7-14.6) % 17.2 H Plt Count (130-400) 10^3/uL 650 H MPV (8.0-11.0) fL 9.2 Immature Gran % Neutrophils % Band Neutrophils % Lymphocytes % Monocytes % Eosinophils % Basophils % Nucleated RBC % % Absolute Neutrophils (1.2-6.7) 10^3/uL Absolute Lymphocytes (1.2-3.4) 10^3/uL Absolute Monocytes (0.1-0.8) 10^3/uL Absolute Eosinophils (0.0-0.7) 10^3/uL Absolute Basophils (0.0-0.2) 10^3/uL RBC Morphology ESR (0-20) mm/hr D-Dimer (<500) ng/mlFEU VBG Lactate (0.6-1.4) mmol/L Sodium (136-145) mmol/L Potassium (3.5-5.1) mmol/L Chloride (98-107) mmol/L Carbon Dioxide (21.0-32.0) mmol/L Anion Gap (3-11) mmol/L BUN (7-18) mg/dL Creatinine (0.55-1.02) mg/dL Estimated GFR/1.73 m2 (mL/min/1.73m2) Glucose (74-106) mg/dL Hemoglobin A1c (<5.7) % Calcium (8.5-10.1) mg/dL Phosphorus (2.6-4.7) mg/dL Magnesium (1.8-2.4) mg/dL Total Bilirubin (0.2-1.0) mg/dL GGT (5-55) U/L AST (15-37) U/L ALT (14-59) U/L Alkaline Phosphatase (46-116) U/L C-Reactive Protein (0.0-0.3) mg/dL Total Protein (6.4-8.2) g/dL Albumin (3.4-5.0) g/dL Prealbumin (20-40) mg/dL Hvtpr-0-Qfuacickujo (90-200) mg/dL Vitamin B12 (193-986) pg/mL 25-OH Vitamin D Total (30-100) ng/mL Folate (8.6-20.0) ng/mL Procalcitonin ng/mL TSH (0.36-3.74) uIU/mL Free T4 (0.76-1.46) ng/dL Total T3 (97-169) ng/dL Thyroid Stim Immunoglob (<=1.3) TSI index Urine Color (Yellow) Yellow Urine Clarity (Clear) Sl Cloudy Urine pH (5-8) 7.0 Ur Specific [place] (1.005-1.025) 1.025 Urine Protein (Negative) mg/dL Trace H Urine Ketones (Negative) mg/dL Negative Urine Blood (Negative) Large H Urine Nitrite (Negative) Negative Urine Bilirubin (Negative) Negative Urine Urobilinogen (Up TO 0.2) EU/dL 0.2 Ur Leukocyte Esterase (Negative) Negative Urine RBC (0-2) HPF >50 H Urine WBC (0-5) HPF 5-10 Ur Epithelial Cells (Negative) HPF Negative Urine Crystals (Negative) HPF Negative Urine Bacteria (Negative) HPF Negative Urine Casts (Negative) LPF Negative Urine Mucus (Negative) Negative Urine Other (Negative) Negative Ur Culture Indicated? Yes Urine Glucose (Negative) mg/dL Negative Stool Calprotectin mcg/g Vancomycin Trough (10.0-20.0) ug/mL Urine Opiates Screen (Negative) Urine Methadone Screen (Negative) Ur Barbiturates Screen (Negative) Ur Tricyclics Screen (Negative) Ur Amphetamines Screen (Negative) U Benzodiazepines Scrn (Negative) Urine Cocaine Screen (Negative) Ur THC Screen (Negative) IgG (610-1,616) mg/dL IgA (85-499) mg/dL IgM (35-242) mg/dL IgE (<158) IU/mL NINI Titer NINI Titer 2 NINI Titer 3 NINI Interpretation (Negative) Thyroperoxidase Ab (<=60) IU/mL Thyroglobulin Antibody (<=60) IU/mL COVID-19 Source SARS-CoV-2 (PCR) Hep Bs Antigen (Negative) Hep Bs Antibody (See Note) Hep Bs Antibody, Quant (See Note) mIU/mL Hep B Core Total Ab (Negative) Hepatitis C Antibody (Negative) HIV 1&2 Ag/Ab, 4th Gen (Negative) Urine Legionella Ag (Negative) Add-On Test Request TNP Patient ABO/Rh Antibody Screen Range/Units 11/23/21 11/23/21 11/23/21 06:45 06:45 06:45 WBC (4.4-10.8) 10^3/uL RBC (3.93-5.22) 10^6/uL Hgb (11.2-15.7) g/dL Hct (36.0-46.0) % MCV (80-95) fL MCH (27.0-33.0) pg MCHC (32.0-36.0) % RDW (11.7-14.6) % Plt Count (130-400) 10^3/uL MPV (8.0-11.0) fL Immature Gran % Neutrophils % Band Neutrophils % Lymphocytes % Monocytes % Eosinophils % Basophils % Nucleated RBC % % Absolute Neutrophils (1.2-6.7) 10^3/uL Absolute Lymphocytes (1.2-3.4) 10^3/uL Absolute Monocytes (0.1-0.8) 10^3/uL Absolute Eosinophils (0.0-0.7) 10^3/uL Absolute Basophils (0.0-0.2) 10^3/uL RBC Morphology ESR (0-20) mm/hr D-Dimer (<500) ng/mlFEU 599 H VBG Lactate (0.6-1.4) mmol/L Sodium (136-145) mmol/L Potassium (3.5-5.1) mmol/L Chloride (98-107) mmol/L Carbon Dioxide (21.0-32.0) mmol/L Anion Gap (3-11) mmol/L BUN (7-18) mg/dL Creatinine (0.55-1.02) mg/dL Estimated GFR/1.73 m2 (mL/min/1.73m2) Glucose (74-106) mg/dL Hemoglobin A1c (<5.7) % Calcium (8.5-10.1) mg/dL Phosphorus (2.6-4.7) mg/dL Magnesium (1.8-2.4) mg/dL Total Bilirubin (0.2-1.0) mg/dL GGT (5-55) U/L AST (15-37) U/L ALT (14-59) U/L Alkaline Phosphatase (46-116) U/L C-Reactive Protein (0.0-0.3) mg/dL Total Protein (6.4-8.2) g/dL Albumin (3.4-5.0) g/dL 1.7 L Prealbumin (20-40) mg/dL Tcpdx-6-Xzqnweqtxfr (90-200) mg/dL Vitamin B12 (193-986) pg/mL 25-OH Vitamin D Total (30-100) ng/mL Folate (8.6-20.0) ng/mL Procalcitonin ng/mL TSH (0.36-3.74) uIU/mL < 0.01 L Free T4 (0.76-1.46) ng/dL 0.97 Total T3 (97-169) ng/dL Thyroid Stim Immunoglob (<=1.3) TSI index Urine Color (Yellow) Urine Clarity (Clear) Urine pH (5-8) Ur Specific [place] (1.005-1.025) Urine Protein (Negative) mg/dL Urine Ketones (Negative) mg/dL Urine Blood (Negative) Urine Nitrite (Negative) Urine Bilirubin (Negative) Urine Urobilinogen (Up TO 0.2) EU/dL Ur Leukocyte Esterase (Negative) Urine RBC (0-2) HPF Urine WBC (0-5) HPF Ur Epithelial Cells (Negative) HPF Urine Crystals (Negative) HPF Urine Bacteria (Negative) HPF Urine Casts (Negative) LPF Urine Mucus (Negative) Urine Other (Negative) Ur Culture Indicated? Urine Glucose (Negative) mg/dL Stool Calprotectin mcg/g Vancomycin Trough (10.0-20.0) ug/mL Urine Opiates Screen (Negative) Urine Methadone Screen (Negative) Ur Barbiturates Screen (Negative) Ur Tricyclics Screen (Negative) Ur Amphetamines Screen (Negative) U Benzodiazepines Scrn (Negative) Urine Cocaine Screen (Negative) Ur THC Screen (Negative) IgG (610-1,616) mg/dL IgA (85-499) mg/dL IgM (35-242) mg/dL IgE (<158) IU/mL NINI Titer NINI Titer 2 NINI Titer 3 NINI Interpretation (Negative) Thyroperoxidase Ab (<=60) IU/mL Thyroglobulin Antibody (<=60) IU/mL COVID-19 Source SARS-CoV-2 (PCR) Hep Bs Antigen (Negative) Hep Bs Antibody (See Note) Hep Bs Antibody, Quant (See Note) mIU/mL Hep B Core Total Ab (Negative) Hepatitis C Antibody (Negative) HIV 1&2 Ag/Ab, 4th Gen (Negative) Urine Legionella Ag (Negative) Add-On Test Request Patient ABO/Rh Antibody Screen Range/Units 11/23/21 11/23/21 11/23/21 06:45 06:45 06:45 WBC (4.4-10.8) 10^3/uL RBC (3.93-5.22) 10^6/uL Hgb (11.2-15.7) g/dL Hct (36.0-46.0) % MCV (80-95) fL MCH (27.0-33.0) pg MCHC (32.0-36.0) % RDW (11.7-14.6) % Plt Count (130-400) 10^3/uL MPV (8.0-11.0) fL Immature Gran % Neutrophils % Band Neutrophils % Lymphocytes % Monocytes % Eosinophils % Basophils % Nucleated RBC % % Absolute Neutrophils (1.2-6.7) 10^3/uL Absolute Lymphocytes (1.2-3.4) 10^3/uL Absolute Monocytes (0.1-0.8) 10^3/uL Absolute Eosinophils (0.0-0.7) 10^3/uL Absolute Basophils (0.0-0.2) 10^3/uL RBC Morphology ESR (0-20) mm/hr D-Dimer (<500) ng/mlFEU VBG Lactate (0.6-1.4) mmol/L Sodium (136-145) mmol/L Potassium (3.5-5.1) mmol/L Chloride (98-107) mmol/L Carbon Dioxide (21.0-32.0) mmol/L Anion Gap (3-11) mmol/L BUN (7-18) mg/dL Creatinine (0.55-1.02) mg/dL Estimated GFR/1.73 m2 (mL/min/1.73m2) Glucose (74-106) mg/dL Hemoglobin A1c (<5.7) % Calcium (8.5-10.1) mg/dL Phosphorus (2.6-4.7) mg/dL Magnesium (1.8-2.4) mg/dL Total Bilirubin (0.2-1.0) mg/dL GGT (5-55) U/L AST (15-37) U/L ALT (14-59) U/L Alkaline Phosphatase (46-116) U/L C-Reactive Protein (0.0-0.3) mg/dL 11.42 H Total Protein (6.4-8.2) g/dL Albumin (3.4-5.0) g/dL Prealbumin (20-40) mg/dL Vqhon-9-Feoxyqgcnkt (90-200) mg/dL Vitamin B12 (193-986) pg/mL 25-OH Vitamin D Total (30-100) ng/mL Folate (8.6-20.0) ng/mL Procalcitonin ng/mL 0.2 TSH (0.36-3.74) uIU/mL Free T4 (0.76-1.46) ng/dL Total T3 (97-169) ng/dL Thyroid Stim Immunoglob (<=1.3) TSI index Urine Color (Yellow) Urine Clarity (Clear) Urine pH (5-8) Ur Specific [place] (1.005-1.025) Urine Protein (Negative) mg/dL Urine Ketones (Negative) mg/dL Urine Blood (Negative) Urine Nitrite (Negative) Urine Bilirubin (Negative) Urine Urobilinogen (Up TO 0.2) EU/dL Ur Leukocyte Esterase (Negative) Urine RBC (0-2) HPF Urine WBC (0-5) HPF Ur Epithelial Cells (Negative) HPF Urine Crystals (Negative) HPF Urine Bacteria (Negative) HPF Urine Casts (Negative) LPF Urine Mucus (Negative) Urine Other (Negative) Ur Culture Indicated? Urine Glucose (Negative) mg/dL Stool Calprotectin mcg/g Vancomycin Trough (10.0-20.0) ug/mL Urine Opiates Screen (Negative) Urine Methadone Screen (Negative) Ur Barbiturates Screen (Negative) Ur Tricyclics Screen (Negative) Ur Amphetamines Screen (Negative) U Benzodiazepines Scrn (Negative) Urine Cocaine Screen (Negative) Ur THC Screen (Negative) IgG (610-1,616) mg/dL IgA (85-499) mg/dL IgM (35-242) mg/dL IgE (<158) IU/mL NINI Titer NINI Titer 2 NINI Titer 3 NINI Interpretation (Negative) Thyroperoxidase Ab (<=60) IU/mL Thyroglobulin Antibody (<=60) IU/mL COVID-19 Source SARS-CoV-2 (PCR) Hep Bs Antigen (Negative) Hep Bs Antibody (See Note) Hep Bs Antibody, Quant (See Note) mIU/mL Hep B Core Total Ab (Negative) Hepatitis C Antibody (Negative) HIV 1&2 Ag/Ab, 4th Gen (Negative) Urine Legionella Ag (Negative) Add-On Test Request Patient ABO/Rh O Negative Antibody Screen NEGATIVE Range/Units 11/24/21 11/24/21 11/26/21 08:00 08:00 06:36 WBC (4.4-10.8) 10^3/uL 9.78 RBC (3.93-5.22) 10^6/uL 3.47 L Hgb (11.2-15.7) g/dL 9.2 L Hct (36.0-46.0) % 30.5 L MCV (80-95) fL 87.9 MCH (27.0-33.0) pg 26.5 L MCHC (32.0-36.0) % 30.2 L RDW (11.7-14.6) % 18.0 H Plt Count (130-400) 10^3/uL 745 H MPV (8.0-11.0) fL 9.2 Immature Gran % 0.4 Neutrophils % 64.2 Band Neutrophils % Lymphocytes % 23.8 Monocytes % 6.1 Eosinophils % 4.9 Basophils % 0.6 Nucleated RBC % % 0 Absolute Neutrophils (1.2-6.7) 10^3/uL 6.27 Absolute Lymphocytes (1.2-3.4) 10^3/uL 2.33 Absolute Monocytes (0.1-0.8) 10^3/uL 0.60 Absolute Eosinophils (0.0-0.7) 10^3/uL 0.48 Absolute Basophils (0.0-0.2) 10^3/uL 0.06 RBC Morphology ESR (0-20) mm/hr D-Dimer (<500) ng/mlFEU VBG Lactate (0.6-1.4) mmol/L Sodium (136-145) mmol/L 141 Potassium (3.5-5.1) mmol/L 3.6 Chloride (98-107) mmol/L 105 Carbon Dioxide (21.0-32.0) mmol/L 28.7 Anion Gap (3-11) mmol/L 7.3 BUN (7-18) mg/dL 11 Creatinine (0.55-1.02) mg/dL 0.5 L Estimated GFR/1.73 m2 (mL/min/1.73m2) >= 60.00 Glucose (74-106) mg/dL 91 Hemoglobin A1c (<5.7) % Calcium (8.5-10.1) mg/dL 9.1 Phosphorus (2.6-4.7) mg/dL Magnesium (1.8-2.4) mg/dL Total Bilirubin (0.2-1.0) mg/dL 0.1 L GGT (5-55) U/L AST (15-37) U/L 17 ALT (14-59) U/L 12 L Alkaline Phosphatase (46-116) U/L 86 C-Reactive Protein (0.0-0.3) mg/dL Total Protein (6.4-8.2) g/dL 7.7 Albumin (3.4-5.0) g/dL 1.8 L Prealbumin (20-40) mg/dL Lnvlf-7-Zlakdqiiipi (90-200) mg/dL 238 H Vitamin B12 (193-986) pg/mL 25-OH Vitamin D Total (30-100) ng/mL Folate (8.6-20.0) ng/mL Procalcitonin ng/mL TSH (0.36-3.74) uIU/mL Free T4 (0.76-1.46) ng/dL Total T3 (97-169) ng/dL Thyroid Stim Immunoglob (<=1.3) TSI index Urine Color (Yellow) Urine Clarity (Clear) Urine pH (5-8) Ur Specific [place] (1.005-1.025) Urine Protein (Negative) mg/dL Urine Ketones (Negative) mg/dL Urine Blood (Negative) Urine Nitrite (Negative) Urine Bilirubin (Negative) Urine Urobilinogen (Up TO 0.2) EU/dL Ur Leukocyte Esterase (Negative) Urine RBC (0-2) HPF Urine WBC (0-5) HPF Ur Epithelial Cells (Negative) HPF Urine Crystals (Negative) HPF Urine Bacteria (Negative) HPF Urine Casts (Negative) LPF Urine Mucus (Negative) Urine Other (Negative) Ur Culture Indicated? Urine Glucose (Negative) mg/dL Stool Calprotectin mcg/g Vancomycin Trough (10.0-20.0) ug/mL Urine Opiates Screen (Negative) Urine Methadone Screen (Negative) Ur Barbiturates Screen (Negative) Ur Tricyclics Screen (Negative) Ur Amphetamines Screen (Negative) U Benzodiazepines Scrn (Negative) Urine Cocaine Screen (Negative) Ur THC Screen (Negative) IgG (610-1,616) mg/dL IgA (85-499) mg/dL IgM (35-242) mg/dL IgE (<158) IU/mL NINI Titer NINI Titer 2 NINI Titer 3 NINI Interpretation (Negative) Thyroperoxidase Ab (<=60) IU/mL Thyroglobulin Antibody (<=60) IU/mL COVID-19 Source SARS-CoV-2 (PCR) Hep Bs Antigen (Negative) Hep Bs Antibody (See Note) Hep Bs Antibody, Quant (See Note) mIU/mL Hep B Core Total Ab (Negative) Hepatitis C Antibody (Negative) HIV 1&2 Ag/Ab, 4th Gen (Negative) Urine Legionella Ag (Negative) Add-On Test Request Patient ABO/Rh Antibody Screen Range/Units 11/26/21 11/26/21 11/26/21 06:36 06:36 07:30 WBC (4.4-10.8) 10^3/uL RBC (3.93-5.22) 10^6/uL Hgb (11.2-15.7) g/dL Hct (36.0-46.0) % MCV (80-95) fL MCH (27.0-33.0) pg MCHC (32.0-36.0) % RDW (11.7-14.6) % Plt Count (130-400) 10^3/uL MPV (8.0-11.0) fL Immature Gran % Neutrophils % Band Neutrophils % Lymphocytes % Monocytes % Eosinophils % Basophils % Nucleated RBC % % Absolute Neutrophils (1.2-6.7) 10^3/uL Absolute Lymphocytes (1.2-3.4) 10^3/uL Absolute Monocytes (0.1-0.8) 10^3/uL Absolute Eosinophils (0.0-0.7) 10^3/uL Absolute Basophils (0.0-0.2) 10^3/uL RBC Morphology ESR (0-20) mm/hr D-Dimer (<500) ng/mlFEU VBG Lactate (0.6-1.4) mmol/L Sodium (136-145) mmol/L 140 Potassium (3.5-5.1) mmol/L 3.8 Chloride (98-107) mmol/L 106 Carbon Dioxide (21.0-32.0) mmol/L 26.7 Anion Gap (3-11) mmol/L 7.3 BUN (7-18) mg/dL 15 Creatinine (0.55-1.02) mg/dL 0.6 Estimated GFR/1.73 m2 (mL/min/1.73m2) >= 60.00 Glucose (74-106) mg/dL 91 Hemoglobin A1c (<5.7) % Calcium (8.5-10.1) mg/dL 8.8 Phosphorus (2.6-4.7) mg/dL Magnesium (1.8-2.4) mg/dL Total Bilirubin (0.2-1.0) mg/dL 0.1 L GGT (5-55) U/L AST (15-37) U/L 19 ALT (14-59) U/L 12 L Alkaline Phosphatase (46-116) U/L 67 C-Reactive Protein (0.0-0.3) mg/dL Total Protein (6.4-8.2) g/dL 7.4 Albumin (3.4-5.0) g/dL 1.9 L Prealbumin (20-40) mg/dL Lqrev-7-Dldnomspnpd (90-200) mg/dL Vitamin B12 (193-986) pg/mL 25-OH Vitamin D Total (30-100) ng/mL Folate (8.6-20.0) ng/mL Procalcitonin ng/mL TSH (0.36-3.74) uIU/mL Free T4 (0.76-1.46) ng/dL Total T3 (97-169) ng/dL Thyroid Stim Immunoglob (<=1.3) TSI index Urine Color (Yellow) Urine Clarity (Clear) Urine pH (5-8) Ur Specific [place] (1.005-1.025) Urine Protein (Negative) mg/dL Urine Ketones (Negative) mg/dL Urine Blood (Negative) Urine Nitrite (Negative) Urine Bilirubin (Negative) Urine Urobilinogen (Up TO 0.2) EU/dL Ur Leukocyte Esterase (Negative) Urine RBC (0-2) HPF Urine WBC (0-5) HPF Ur Epithelial Cells (Negative) HPF Urine Crystals (Negative) HPF Urine Bacteria (Negative) HPF Urine Casts (Negative) LPF Urine Mucus (Negative) Urine Other (Negative) Ur Culture Indicated? Urine Glucose (Negative) mg/dL Stool Calprotectin mcg/g Vancomycin Trough (10.0-20.0) ug/mL Urine Opiates Screen (Negative) Urine Methadone Screen (Negative) Ur Barbiturates Screen (Negative) Ur Tricyclics Screen (Negative) Ur Amphetamines Screen (Negative) U Benzodiazepines Scrn (Negative) Urine Cocaine Screen (Negative) Ur THC Screen (Negative) IgG (610-1,616) mg/dL 2652 H IgA (85-499) mg/dL 539 H IgM (35-242) mg/dL 67 IgE (<158) IU/mL 81 NINI Titer NINI Titer 2 NINI Titer 3 NINI Interpretation (Negative) Thyroperoxidase Ab (<=60) IU/mL Thyroglobulin Antibody (<=60) IU/mL COVID-19 Source SARS-CoV-2 (PCR) Hep Bs Antigen (Negative) Hep Bs Antibody (See Note) Hep Bs Antibody, Quant (See Note) mIU/mL Hep B Core Total Ab (Negative) Hepatitis C Antibody (Negative) HIV 1&2 Ag/Ab, 4th Gen (Negative) Urine Legionella Ag (Negative) Add-On Test Request Patient ABO/Rh Antibody Screen Range/Units 11/26/21 11/27/21 07:30 12:30 WBC (4.4-10.8) 10^3/uL 9.23 RBC (3.93-5.22) 10^6/uL 3.50 L Hgb (11.2-15.7) g/dL 9.3 L Hct (36.0-46.0) % 30.6 L MCV (80-95) fL 87.4 MCH (27.0-33.0) pg 26.6 L MCHC (32.0-36.0) % 30.4 L RDW (11.7-14.6) % 18.4 H Plt Count (130-400) 10^3/uL 747 H MPV (8.0-11.0) fL 9.2 Immature Gran % 0.2 Neutrophils % 60.6 Band Neutrophils % Lymphocytes % 26.0 Monocytes % 9.2 Eosinophils % 3.0 Basophils % 1.0 Nucleated RBC % % 0 Absolute Neutrophils (1.2-6.7) 10^3/uL 5.59 Absolute Lymphocytes (1.2-3.4) 10^3/uL 2.40 Absolute Monocytes (0.1-0.8) 10^3/uL 0.85 H Absolute Eosinophils (0.0-0.7) 10^3/uL 0.28 Absolute Basophils (0.0-0.2) 10^3/uL 0.09 RBC Morphology ESR (0-20) mm/hr D-Dimer (<500) ng/mlFEU VBG Lactate (0.6-1.4) mmol/L Sodium (136-145) mmol/L Potassium (3.5-5.1) mmol/L Chloride (98-107) mmol/L Carbon Dioxide (21.0-32.0) mmol/L Anion Gap (3-11) mmol/L BUN (7-18) mg/dL Creatinine (0.55-1.02) mg/dL Estimated GFR/1.73 m2 (mL/min/1.73m2) Glucose (74-106) mg/dL Hemoglobin A1c (<5.7) % Calcium (8.5-10.1) mg/dL Phosphorus (2.6-4.7) mg/dL Magnesium (1.8-2.4) mg/dL Total Bilirubin (0.2-1.0) mg/dL GGT (5-55) U/L AST (15-37) U/L ALT (14-59) U/L Alkaline Phosphatase (46-116) U/L C-Reactive Protein (0.0-0.3) mg/dL Total Protein (6.4-8.2) g/dL Albumin (3.4-5.0) g/dL Prealbumin (20-40) mg/dL Ejqwd-8-Sgadmsltcur (90-200) mg/dL Vitamin B12 (193-986) pg/mL 25-OH Vitamin D Total (30-100) ng/mL Folate (8.6-20.0) ng/mL Procalcitonin ng/mL TSH (0.36-3.74) uIU/mL Free T4 (0.76-1.46) ng/dL Total T3 (97-169) ng/dL Thyroid Stim Immunoglob (<=1.3) TSI index Urine Color (Yellow) Urine Clarity (Clear) Urine pH (5-8) Ur Specific [place] (1.005-1.025) Urine Protein (Negative) mg/dL Urine Ketones (Negative) mg/dL Urine Blood (Negative) Urine Nitrite (Negative) Urine Bilirubin (Negative) Urine Urobilinogen (Up TO 0.2) EU/dL Ur Leukocyte Esterase (Negative) Urine RBC (0-2) HPF Urine WBC (0-5) HPF Ur Epithelial Cells (Negative) HPF Urine Crystals (Negative) HPF Urine Bacteria (Negative) HPF Urine Casts (Negative) LPF Urine Mucus (Negative) Urine Other (Negative) Ur Culture Indicated? Urine Glucose (Negative) mg/dL Stool Calprotectin mcg/g Vancomycin Trough (10.0-20.0) ug/mL Urine Opiates Screen (Negative) Urine Methadone Screen (Negative) Ur Barbiturates Screen (Negative) Ur Tricyclics Screen (Negative) Ur Amphetamines Screen (Negative) U Benzodiazepines Scrn (Negative) Urine Cocaine Screen (Negative) Ur THC Screen (Negative) IgG (610-1,616) mg/dL IgA (85-499) mg/dL IgM (35-242) mg/dL IgE (<158) IU/mL NINI Titer NINI Titer 2 NINI Titer 3 NINI Interpretation (Negative) Thyroperoxidase Ab (<=60) IU/mL Thyroglobulin Antibody (<=60) IU/mL COVID-19 Source SARS-CoV-2 (PCR) Hep Bs Antigen (Negative) Hep Bs Antibody (See Note) Hep Bs Antibody, Quant (See Note) mIU/mL Hep B Core Total Ab (Negative) Hepatitis C Antibody (Negative) HIV 1&2 Ag/Ab, 4th Gen (Negative) Urine Legionella Ag (Negative) Negative Add-On Test Request Patient ABO/Rh Antibody Screen
[2021-11-28 15:25] VITALS: BP 116/79; PULSE 97; RESP 18; TEMP 36.6; O2SAT 97
--- NOTE | 2021-11-28 15:25 | PT.INTREAT ---
PT Notes Visit Reasons: Dry,Gangrene RLE Inpatient Physical Therapy Treatment Note [facility] Date: 11/28/21 OBJECTIVE: Sit-stand: I Stand-sit: I GAIT Assistive Device: 4WW Weight bearing: WBAT R LE Assist: SBA Distance: 250ft ASSESSMENT: Pt seems to tolerate wt bearing with less dicomfort and seems to be more comfortable with PT sessions. PLAN: Cont as per PT POC. TREATMENT CODE/TIME: 2:30-2:48 (18) TA
[2021-11-28 15:30] LABS: ANA Interpretation Positive (Negative); ANA Titer Pattern 1:160 Homogeneous
[2021-11-28 15:36] LABS: ANCA Interpretation Negative (Negative)
[2021-11-28] MEDS: Gabapentin 300 MG CAP PO (15:52)
[2021-11-28] MEDS: cefTRIAXone 2 GM/50 ML BAG IVPB (15:52)
--- NOTE | 2021-11-28 20:29 | W.PM.PROGNOT ---
Date of Service Date of service: 11/28/21 Time of Service: 14:00 Assessment and Plan Assessment and plan (1) COPD (chronic obstructive pulmonary disease): Status: Chronic Assessment and plan: recs per pulm (2) Pneumonia: Status: Acute (3) Bullous emphysema: Status: Acute (4) Bronchiectasis: Status: Acute (5) Puncture wound of left foot: Status: Acute (6) Stage III pressure ulcer of right ankle: Status: Acute Assessment and plan: -3 weeks of IV Rocephin per ID. Last day will be December 14. Plan grafting in a.m. with xenograft. Followed by wound VAC. I discussed with the patient what she could expect during the procedure, post procedurally, recovery time and risks. There is always a certain degree of graft that does not take and she may need 1-2 additional treatments. We discussed the importance of nutrition and continuing with physical therapy. Risks of the procedure mostly include anesthesia, worsening of infection, allergic reaction to the product, need for further treatments. -Plan placing midline for IV access for prolonged antibiotics. Continue supportive care Continue to work with care management for post hospital care. 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 She does not accept to healthy foods. There are many social stressors in the home, as well as other factors that include her from getting adequate medical care. The case was reviewed with the wound care nurses and with Dr. Brown. 45 minutes spent arranging and coordinating the procedure for 11/29/2021 (7) Wound infection: Status: Acute (8) Hyperthyroidism: Status: Chronic (9) Hypoalbuminemia due to protein-calorie malnutrition: Status: Acute Assessment and plan: Continue nutritional supplementation (10) Smoker unmotivated to quit: Status: Chronic (11) Asthma: Status: Chronic (12) Narcotic abuse in remission: Assessment and plan: Suboxone (13) Depression: Status: Chronic Assessment and plan: increase cymbalta (14) Dry gangrene: Status: Acute Assessment and plan: resolved Subjective Subjective Interval history since last seen: Pt is doing well. no headaches. No CP or SOB. no productive cough. no dysuria. no leg pain or swelling. wound vac is in place. I did review w/ the wound RN progress of the wound. she has good granulation on the lateral side. still has exposed tendons on the medial side. no fever/wbc. no redness adn minimal swelling in foot. good DP pulse. no diarrhea recorded. pt has been up walking- still has problem dorsi-flexure. She is doing better w/ eating and meeting all her nurtrition goals. L:CTA b/l cardiio NSR wound on left foot shows good granulation adn no infection Objective Last Vital Signs Temp 36.6 C 11/28/21 15:25 Pulse 97 H 11/28/21 15:25 Resp 18 11/28/21 15:25 BP 116/79 11/28/21 15:25 Pulse Ox 97 11/28/21 15:25 Laboratory Results - last 24 hr 11/26/21 11/26/21 11/26/21 06:36 06:36 06:36 [id number] 238 H IgG 2652 H IgA 539 H IgM 67 IgE 81 NINI Titer NINI Titer 2 NINI Titer 3 NINI Interpretation ANCA Immunofluorescen ANCA Titer ANCA Pattern Urine Legionella Ag 11/26/21 11/27/21 06:36 12:30 [id number] IgG IgA IgM IgE NINI Titer 1:160 Homogeneous NINI Titer 2 Not Applicable NINI Titer 3 Not Applicable NINI Interpretation Positive A ANCA Immunofluorescen Negative ANCA Titer Not Applicable ANCA Pattern Not Applicable Urine Legionella Ag Negative
[2021-11-28 21:00] VITALS: O2SAT 97
[2021-11-28] MEDS: Gabapentin 300 MG CAP 600 MG PO (21:47)
[2021-11-28 23:59] VITALS: BP 106/71; PULSE 85; RESP 18; TEMP 36.9; O2SAT 93
[2021-11-29] VITALS (7 sets, daily range): BP systolic 103–147; BP diastolic 59–89; PULSE 61–94; RESP 16–19; TEMP 36.5–37; O2SAT 94–100; BMI 16.7
[2021-11-29] MEDS: Lactated Ringers 1,000 ML 100 ML IV (00:27)
[2021-11-29] MEDS: metroNIDAZOLE 500 MG/100 ML BAG 100 MG IVPB ×3 (02:07→17:37)
[2021-11-29] MEDS: LORazepam 0.5 MG TAB PO ×3 (02:07→19:33)
[2021-11-29] MEDS: Famotidine 20 MG TAB PO ×2 (08:56→19:33)
[2021-11-29] MEDS: methIMAzole 5 MG TAB PO (08:57)
[2021-11-29] MEDS: DULoxetine 20 MG CAP PO (08:57)
[2021-11-29] MEDS: Cyanocobalamin 500 MCG TAB 1000 MCG PO (08:57)
[2021-11-29] MEDS: Zinc Sulfate 220 MG TAB PO (08:57)
[2021-11-29] MEDS: Ascorbic Acid 500 MG TAB PO ×2 (08:57→19:33)
[2021-11-29] MEDS: Buprenorphine/Naloxone 8 mg/2 mg FILM 2 EACH SL (08:58)
[2021-11-29] MEDS: Buprenorphine/Naloxone 2 mg/0.5 mg FILM 1 EACH SL (08:59)
--- NOTE | 2021-11-29 09:00 | RESPIRATORY ---
PT REFUSES NS 7% UPD AND SPUTUM SAMPLE 0815.
--- NOTE | 2021-11-29 12:15 | ANES.PREOP_ITS ---
General Info Date of Service Date Performed: 11/29/21 Height: 4 ft 11.84 in Weight: 38.55 kg Body Mass Index (BMI): 16.7 Surgical Procedure: Operation Date: 11/13/21 17:10 Proposed Procedure Side Surgeon p Debridement Foot/Leg Susana Richey, DO Actual Procedure Side Surgeon p Irrigation & Debridement of Ankle/Foot Wound Right Susana Richey, Pre-Op w Post-Op Diagnosis WOUND OF RIGHT ANKLE/FOOT WOUND OF RIGHT ANKLE/FOOT Operation Date: 11/15/21 12:10 Proposed Procedure Side Surgeon p Washout, possible Debridement, Dressing Change Susana Richey, DO Actual Procedure Side Surgeon p IRRIGATION & DEBRIDEMENT OF FOOT WOUND WITH DRESSING CHANGE Right Susana Richey, Pre-Op Diagnosis Post-Op Diagnosis RIGHT ANKLE/FOOT WOUND debridement RIGHT ANKLE/FOOT WOUND debridement Operation Date: 11/29/21 13:10 Proposed Procedure Side Surgeon p Skin Graft Susana Richey, Meds Allergies and Home Medications Allergies Allergy/AdvReac Type Severity Reaction Status Date / Time Penicillins Allergy Unknown Hives Verified 11/13/21 14:49 Home Medication Medication Instructions Recorded levonorgestrel 20 mcg/24 hours (7 1 unit IU DAILY 08/22/15 yrs) 52 mg intrauterine device (Mirena) ferrous gluconate 324 mg (38 mg 324 mg PO DAILY 11/13/21 iron) tablet propranolol 20 mg tablet 20 mg PO BID 11/13/21 buprenorphine 2 mg-naloxone 0.5 mg 1 film SUBLINGUAL DAILY 11/14/21 sublingual film (Suboxone) buprenorphine 8 mg-naloxone 2 mg 2 film SUBLINGUAL DAILY 11/14/21 sublingual film (Suboxone) Current Visit Medications: Current Medications Generic Name Dose Route Start Last Admin Trade Name Freq PRN Reason Stop Dose Admin Acetaminophen 650 mg 11/14/21 14:02 11/28/21 12:48 Acetaminophen 325 Mg Tab PO 650 mg Q6H PRN PRN Administration Albuterol Sulfate 2.5 mg 11/13/21 15:30 Albuterol 2.5 Mg/3 Ml Inh Soln Vial UPD Q4H PRN PRN Ascorbic Acid 500 mg 11/13/21 20:00 11/29/21 08:57 Ascorbic Acid 500 Mg Tab PO 500 mg BID HANSA Administration Buprenorphine/Naloxone 2 each 11/15/21 08:30 11/29/21 08:58 Buprenorphine/Naloxone 8 Mg/2 Mg Film SL 2 each DAILY HANSA Administration Buprenorphine/Naloxone 1 each 11/15/21 08:30 11/29/21 08:59 Buprenorphine/Naloxone 2 Mg/0.5 Mg Film SL 1 each DAILY HANSA Administration Cyanocobalamin 1,000 mcg 11/15/21 08:30 11/29/21 08:57 Cyanocobalamin 500 Mcg Tab PO 1,000 mcg DAILY HANSA Administration Duloxetine HCl 20 mg 11/23/21 09:00 11/29/21 08:57 Duloxetine 20 Mg Cap PO 20 mg DAILY HANSA Administration Enoxaparin Sodium 40 mg 11/14/21 10:00 11/29/21 09:08 Enoxaparin 40 Mg/0.4 Ml Syr SC Not Given Q24H HANSA Famotidine 20 mg 11/18/21 20:00 11/29/21 08:56 Famotidine 20 Mg Tab PO 20 mg BID HANSA Administration Gabapentin 600 mg 11/23/21 22:00 11/28/21 21:47 Gabapentin 300 Mg Cap PO 600 mg HS HANSA Administration Gabapentin 300 mg 11/24/21 14:00 11/28/21 15:52 Gabapentin 300 Mg Cap PO 300 mg DAILY@1400 HANSA Administration Hydroxyzine Pamoate 25 mg 11/13/21 18:21 11/27/21 06:07 Hydroxyzine Pamoate 25 Mg Cap PO 25 mg TID PRN PRN Administration Sodium Chloride 500 mls @ 0 mls/hr 11/13/21 15:30 11/28/21 02:19 Saline 500ml Bag IV 30 mls/hr PRN PRN Administration As Directed Ceftriaxone Sodium/Dextrose 2 gm in 50 mls @ 100 mls/hr 11/22/21 16:00 15:52 Rocephin IVPB 100 mls/hr Q24H HANSA Administration Metronidazole 500 mg in 100 mls @ 100 mls/hr 11/23/21 10:00 11/29/21 09:08 Flagyl IVPB 100 mls/hr Q8H HANSA Administration Ringer's Solution 1,000 mls @ 100 mls/hr 11/28/21 14:30 11/29/21 00:27 IV 100 mls/hr INFUSION HANSA Administration IV Miscellaneous Supplies 1 each 11/13/21 15:30 Iv Access IV DIRECTED HANSA Lactobacillus Acidophilus/Casei 1 cap 02/16/22 08:30 11/29/21 08:57 L. Acidophilus, Casei, Rhamnosus Cap PO 1 cap DAILY HANSA Administration Lidocaine HCl 50 ml 11/16/21 16:00 11/19/21 14:57 Lidocaine 4% Topical Solution 50 Ml Btl MM 3 ml DIRECTED HANSA Administration Lorazepam 0.5 mg 11/17/21 17:24 11/29/21 09:18 Lorazepam 0.5 Mg Tab PO 0.5 mg TID PRN PRN Administration Lorazepam 1 mg 11/19/21 10:30 11/26/21 14:16 Lorazepam 2 Mg/Ml Vial IVP 1 mg MOFR@1030 HANSA Administration Megestrol Acetate 80 mg 11/24/21 08:30 11/29/21 08:57 Megestrol 40 Mg Tab PO 80 mg QID HANSA Administration Methimazole 5 mg 11/16/21 08:30 11/29/21 08:57 Methimazole 5 Mg Tab PO 5 mg DAILY HANSA Administration Multi-Ingredient Supplement 1 ounce 11/13/21 20:00 11/29/21 08:59 Protein Nutritional Supplement 16 Gm 1 Ounce Packet PO Not Given TID [facility] Nicotine 1 cartridge 11/13/21 18:21 11/18/21 13:12 Nicotine 10 Mg/Cartridge 30 Cart/Pkg IH 1 cartridge Q2H PRN PRN Administration Ondansetron HCl 4 mg 11/13/21 16:43 Ondansetron 4 Mg/2 Ml Vial IVP Q4H PRN PRN Polyethylene Glycol 17 gm 11/13/21 17:07 Polyethylene Glycol 3350 17 Gm Packet PO DAILY PRN PRN Sodium Chloride 0 ml 11/13/21 15:30 11/28/21 21:48 Normal Saline Flush 10 Ml Syr IVP 10 ml PRN PRN Administration Sodium Chloride 4 ml 11/28/21 08:30 11/29/21 08:59 Sodium Chloride 7% For Inhalation 4 Ml Vial IH Not Given BID [facility] Tiotropium Earling 2 puff 11/29/21 08:30 11/29/21 09:01 Tiotropium Earling-Respimat 10 Puff Inh IH Not Given DAILY [facility] Tramadol HCl 150 mg 11/19/21 10:45 11/26/21 13:50 Tramadol 50 Mg Tab PO Not Given MOFR@1000 [facility] Tramadol HCl 50 mg 11/26/21 22:00 11/28/21 21:47 Tramadol 50 Mg Tab PO 50 mg HS HANSA Administration Tramadol HCl 50 mg 11/27/21 08:30 11/28/21 09:38 Tramadol 50 Mg Tab PO 50 mg SuTuWeThSa HANSA Administration Zinc Sulfate 220 mg 11/14/21 08:30 11/29/21 08:57 Zinc Sulfate 220 Mg Tab PO 220 mg DAILY HANSA Administration PFSH Active Problems Active Problems: Problem Status Onset Code Tachycardia R00.0 COPD (chronic obstructive pulmonary disease) J44.9 Pneumonia J18.9 Bullous emphysema J43.9 Bronchiectasis J47.9 DVT prophylaxis Z29.9 Discharge planning issues Z02.9 Depression F32.A Puncture wound of left foot S91.332A Stage III pressure ulcer of right ankle L89.513 Wound infection T14.8XXA, L08.9 Dry gangrene I96 Hyperthyroidism E05.90 Hypoalbuminemia due to protein-calorie malnutrition E88.09, E46 Smoker unmotivated to quit F17.200 Asthma J45.909 Medical History Medical History (Updated 11/28/21 @ 20:46 by Susana Richey DO) Hypokalemia due to loss of potassium Narcotic abuse in remission Surgical History Surgical History (Updated 11/13/21 @ 10:15 by Jazzy Celaya DO) History of adenoidectomy S/p bilateral myringotomy with tube placement Tobacco Smoking/Tobacco Use Status: Current every day Tobacco Type: cigarettes Smoking cigarettes per day: 10 Alcohol Alcohol Intake: never Substance Use Substance use: Current Sobriety Substance use type: former substance user Vital Signs and Lab Results Vital Signs Most Recent Vital Signs in EMR: Most Recent Vital Signs Temp Pulse Resp BP Pulse Ox 37 C 86 16 103/68 100 11/29/21 10:13 11/29/21 10:13 11/29/21 10:13 11/29/21 10:13 11/29/21 10:13 Point of Care Results Point of Care Results: POC- Test(urine) Negative 11/13/21 11:13 Lab Results Result Diagrams: 11/26/21 07:30 11/26/21 07:30 Blood Type / Crossmatch: Patient ABO/Rh O Negative 11/23/21 Antibody Screen NEGATIVE 11/23/21 Complete Blood Count: White Blood Count 9.23 10^3/uL (4.4-10.8) 11/26/21 07:30 11/26/21 Red Blood Count 3.50 10^6/uL (3.93-5.22) L 11/26/21 07:30 11/26/21 Hemoglobin 9.3 g/dL (11.2-15.7) L 11/26/21 07:30 11/26/21 Hematocrit 30.6 % (36.0-46.0) L 11/26/21 07:30 11/26/21 Platelet Count 747 10^3/uL (130-400) H 11/26/21 07:30 11/26/21 Venous Blood Lactate 1.6 mmol/L (0.6-1.4) H 11/13/21 10:10 11/13/21 Complete Metabolic Panel: Sodium Level 140 mmol/L (136-145) 11/26/21 07:30 11/26/21 Potassium Level 3.8 mmol/L (3.5-5.1) 11/26/21 07:30 11/26/21 Chloride Level 106 mmol/L (98-107) 11/26/21 07:30 11/26/21 Carbon Dioxide Level 26.7 mmol/L (21.0-32.0) 11/26/21 07:30 11/26/21 Blood Urea Nitrogen 15 mg/dL (7-18) 11/26/21 07:30 11/26/21 Creatinine 0.6 mg/dL (0.55-1.02) 11/26/21 07:30 11/26/21 Estimated GFR/1.73 m2 >= 60.00 (mL/min/1.73m2) 11/26/21 07:30 11/26/21 Magnesium Level 2.0 mg/dL (1.8-2.4) 11/17/21 06:02 11/17/21 Calcium Level 8.8 mg/dL (8.5-10.1) 11/26/21 07:30 11/26/21 Albumin 1.9 g/dL (3.4-5.0) L 11/26/21 07:30 11/26/21 Glucose Level 91 mg/dL (74-106) 11/26/21 07:30 11/26/21 Hemoglobin A1c 5.1 % (<5.7) 11/13/21 10:10 11/13/21 C-Reactive Protein 11.42 mg/dL (0.0-0.3) H 11/23/21 06:45 11/23/21 Liver Function Panel: Alanine Aminotransferase (ALT/SGPT) 12 U/L (14-59) L 11/26/21 07:30 11/26/21 Aspartate Amino Transf (AST/SGOT) 19 U/L (15-37) 11/26/21 07:30 11/26/21 Gamma Glutamyl Transpeptidase 34 U/L (5-55) 11/13/21 14:25 11/13/21 Coagulation Panel: D-Dimer 599 ng/mlFEU (<500) H 11/23/21 06:45 11/23/21 Cardiac Panel: No Data to Display Arterial Blood Gas: No Data to Display Venous Blood Gas: No Data to Display Pancreas Panel: No Data to Display Thyroid Panel: Thyroid Stimulating Hormone (TSH) < 0.01 uIU/mL (0.36-3.74) L 11/23/21 06:45 11/23/21 Total Triiodothyronine 166 ng/dL (97-169) 11/14/21 06:35 11/14/21 Infectious Disease: Coronavirus (COVID-19)(PCR) Negative (Negative) 11/13/21 13:12 11/13/21 Coronavirus 2019 Source NASAL 11/13/21 13:12 11/13/21 HIV (1&2) Ag and Ab, 4th Generation Negative (Negative) 11/14/21 06:35 11/14/21 Hepatitis B Surface Antigen Negative (Negative) 11/14/21 06:35 11/14/21 Hepatitis C Antibody Negative (Negative) 11/14/21 06:35 11/14/21 Blood Cultures: No Data to Display Toxicology Panel: Urine Amphetamines Screen Negative (Negative) 11/13/21 13:47 11/13/21 Urine Benzodiazepines Screen Negative (Negative) 11/13/21 13:47 11/13/21 Urine Barbiturates Screen Negative (Negative) 11/13/21 13:47 11/13/21 Urine Cocaine Screen Negative (Negative) 11/13/21 13:47 11/13/21 Urine Methadone Screen Negative (Negative) 11/13/21 13:47 11/13/21 Urine Opiates Screen Negative (Negative) 11/13/21 13:47 11/13/21 Ur Tricyclic Antidepressants Screen Negative (Negative) 11/13/21 13:47 11/13/21 Ur Tetrahydrocannabinol (THC) Scrn Negative (Negative) 11/13/21 13:47 11/13/21 Panel: No Data to Display Imaging and Studies Imaging and Studies Study information below may be from another EMR and interpreted by another provider. Please see original notes in EMR for more complete details. EKG Summary: DATE/TIME OF SERVICE: 06/24/21 0031 : 1985PERFORMING LOCATION: ER APPROVED REPORT Exam: Resting ECG Reason for Exam: QT assessment Patient Location: E HR:118 bpm ECG Measurements Heart Rate 118 AXIS NC 111 P 82 QRSd 104 QRS 87 QT 315 T62 QTc 440 Conclusion Sinus tachycardia...rate> 99 Left ventricular hypertrophy...multiple voltage criteria Normal Nixon Normal QTc No acute ST changes. Anesthesia Assessment and Plan Anesthesia History Personal History: No History of Anesthesia Complications and Other (states took a very long time 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) Family History: No Family History of Anesthesia Complications Exercise Tolerance Exercise Tolerance: Metabolic Equivalents>4 Pertinent Negatives Pertinent Negatives: No Symptoms of GERD, No Major Cardiovascular Symptoms or Complaints, No History of CVA/TIA and Other (COPD) Cardiac & Pulmonary Exam Cardiac Exam: Unable to Assess Pulmonary Exam: Unable to Assess Cardiac and Pulmonary Comment:: COPD, pt too anxious and didn't want exam Implantable Cardiac Device Does patient have a Pacemaker or an ICD?: No Airway Exam Known Difficult Airway: No Mallampati Class: 2 Mouth Opening: Normal (> 3cm) Thyromental Distance: Greater than 3 cm Neck Range of Motion: Full ROM Neck Circumference: Normal Teeth Condition: Generalized Poor Dentition and Loose or Chipped Airway Comments: most teeth are chipped, many missing, denies loose. ASA Classification ASA Score: ASA 3 Emergency Case?: No NPO Status NPO Status: NPO Clears >2 hours, Solids >8 hours Status Status: Negative HCG Anesthesia Plan Resuscitation Status: Full Code Anesthesia Technique: Spinal Anesthesia Airway Planned: Natural Airway Monitors Used: Standard Monitors
[2021-11-29 14:54] LABS: Streptococcus Pneumoniae Ag, U Negative (Negative)
[2021-11-29 15:04] LABS: Fungitell Qualitative Indeterminate (Negative); Fungitell Quantitative Value 78 pg/mL (<60 pg/mL)
--- NOTE | 2021-11-29 15:40 | W.ANESPOSTOP ---
Postoperative Evaluation Date, Time and Location Date Performed: 11/29/21 Time Performed: 15:41 Patient Location: PACU Vital Signs Most Recent Imported Vital Signs: Most Recent Vital Signs Temp Pulse Resp BP Pulse Ox 36.5 C 65 19 105/59 L 96 11/29/21 15:20 11/29/21 15:20 11/29/21 15:20 11/29/21 15:20 11/29/21 15:20 Most Recent Vital Signs Temp Pulse Resp BP Pulse Ox 37.5 C 106 H 16 116/78 96 11/22/21 15:05 11/22/21 15:05 11/22/21 15:05 11/22/21 15:05 11/22/21 15:05 Most Recent Vital Signs Temp Pulse Resp BP Pulse Ox 37.6 C H 121 H 19 97/58 L 98 11/15/21 15:23 11/15/21 15:23 11/15/21 15:23 11/15/21 15:23 11/15/21 15:23 Most Recent Vital Signs Temp Pulse Resp BP Pulse Ox 36.2 C L 94 H 24 93/42 L 98 11/13/21 16:49 11/13/21 16:49 11/13/21 16:49 11/13/21 16:49 11/13/21 16:49 Pain Score Most Recent Pain Score: Most Recent Pain Score Pain Level 0 11/29/21 15:20 Assessment Mental Status: Awake (Alert & Oriented to Patient Baseline) Airway and Respiratory Function: Patent airway with normal (patient baseline) respiratory exam Cardiovascular Function: Hemodynamically Stable Hydration Status: Adequately Hydrated Nausea & Vomiting: No Nausea or Vomiting Pain: Pt. Denies Any Pain Peripheral Nerve Block: Patient did not receive a nerve block
[2021-11-29] MEDS: cefTRIAXone 2 GM/50 ML BAG IVPB (16:03)
[2021-11-29] MEDS: Gabapentin 300 MG CAP PO (16:03)
[2021-11-29] MEDS: Normal Saline 500 ML 30 ML IV (16:04)
--- NOTE | 2021-11-29 16:57 | CHAPLAIN ---
Nicol was having some pizza when I visited. She had just returned from the OR where she'd had surgery for a skin graft. She had a spinal anesthesia and said she tried to pay attention to the surgery. Nicol had eaten since last night, prior to her surgery today, and said she was very hungry. She has lots of plants and ruth on her windowsill now, and seems much less distraught than when she first got here.
--- NOTE | 2021-11-29 16:58 | CMPROGNOTE_ITS ---
Care Management Progress Note S/O: Nicol was sitting up in bed, preparing for surgery, CM brought her a [facility] Nathaniel Bear and reviewed plan, change of room and patient status. Nicol reported feeling anxious but looking forward to surgery so that she could move forward. She reported feeling hopeful the graft will take and she can return home soon. CM coordinated family visit for tomorrow and continues to follow. A: 36 year old female admitted to [facility] on 11/13/21 for Dry, Gangrene RLE. P: Nicol will require IV abx and ongoing wound care for gangrenous wound(s) on her right ankle. Nicol will transition to SWB1 status when medically ready, until Surgery feels the area is able to accept a skin graft. CM will coordinate and support in person family visitation.
[2021-11-29] MEDS: Normal Saline Flush 10 ML SYR IVP (17:37)
--- NOTE | 2021-11-29 17:38 | W.PM.OP ---
Date of service: 11/29/21 Time of Service: 17:38 Operative Note Operative Note DATE OF PROCEDURE: 11/13/21 PRE-OP DIAGNOSIS: stage III pressure ulcer infected pressure ulcer same PROCEDURE: I&D placement of AmnioFix 9x20cm wound vac change SURGEON: Susana Richey ANESTHESIA TYPE: Spinal Refer to Anesthesia Record ESTIMATED BLOOD LOSS: 5 PATHOLOGY: other Patient was transported to: PACU Patient's condition: stable Implants: I&D Procedure Description: Nicol is being brought to the OR today for evaluation of her wounds, debridement of necrotic tissue, placement of amnio fix graft to promote granulation tissue and wound VAC change. Informed consent is obtained explaining risks and benefits of the procedure including but not limited to bleeding, infection, pneumonia, blood clots. Complications of anesthesia. Chronic pain or chronic numbness. Loss of motor or sensory. Damage to tendons veins or nerves or arteries. Need for repeat procedures. Patient is brought to the operative room suite. Anesthetic is administered per the department of anesthesia. Patient is placed in supine position with all bony surfaces padded. She is already on a antibiotic regimen as prescribed by infectious disease. Timeout is performed. VAC is removed. She has a small 2 x 2 millimeter pressure ulcer on her anterior keys from the wound VAC. We will change the tubing so it comes off her foot and not off her upper leg today. The lower extremity is prepped and draped in the usual sterile fashion using a Betadine scrub solution. The wounds are evaluated. Sizes as noted: wound medial medial- [id number] lateral 9x8x.5cm The wounds show beautiful granulation tissue that is forming. There is 99% excellent granulation tissue. There is even some epithelialization that is starting to develop on the lateral wound. The exposed tendons on the medial wound are 50% covered at this point. There is a few areas of eschar that are debrided. These are most likely related to cautery used to control bleeding during the last for. The wounds are irrigated with 3 L of saline today to decrease the bioburden. A 9 x 20 cm fenestrated sheet of amnio fix is applied to the wound bed. The VAC is placed on top of this. An occlusive dressing is applied. Patient tolerated the procedure well without complication and was transferred to recovery room stable and condition. The VAC will remain in place until next Friday. We will evaluate for take at that time and further recommendations to follow. She will be on IV antibiotics until December 14. Patient is refusing to have a PICC line placed. Patient has been doing very well with meeting physical therapy and nutrition goals and appears very motivated to participate in her care at this time. Plan continue to work with hospitalist to address her thyroid issues. 90 minutes are spent on wound care today. Ally herndon/ wound care did assist in the case and was able to visualize her wounds as well.
[2021-11-29] MEDS: Acetaminophen 325 MG TAB 650 MG PO (19:32)
[2021-11-29] MEDS: Gabapentin 300 MG CAP 600 MG PO (21:12)
[2021-11-29] MEDS: traMADol 50 MG TAB PO (21:13)
--- NOTE | 2021-11-29 22:03 | PGE_ITS ---
Date of Service Date of service: 11/29/21 Time of Service: 22:03 Assessment and Plan Assessment and plan (1) COPD (chronic obstructive pulmonary disease): Status: Chronic (2) Pneumonia: Status: Acute (3) Bullous emphysema: Status: Acute (4) Bronchiectasis: Status: Acute (5) Depression: Status: Chronic (6) Puncture wound of left foot: Status: Acute (7) Stage III pressure ulcer of right ankle: Status: Acute (8) Wound infection: Status: Acute (9) Hypoalbuminemia due to protein-calorie malnutrition: Status: Acute (10) Asthma: Status: Chronic (11) Smoker unmotivated to quit: Status: Chronic (12) Narcotic abuse in remission: (13) Status post xenograft placement: Status: Acute Assessment and plan: The patient is doing well post-op. Their pain is well controlled. They are having no nausea or vomiting. The pt is not having any chest pain or SOB, productive cough; no calf pain or swelling. The pt is making good urine. The pt pain is adequately controlled. The case was discussed with nursing and patient?s progress reviewed. All of the pt's home medications were addressed and adjusted accordingly for their oral intact status. HEENT: no jaundice. no eye pain/drainage/redness/swelling. Mild sore throat Cardio- NSR no chest pain, BP stable. Pulm: no sob or productive cough. no hemoptysis Incision- clean/dry. Dressing intact no excessive bleeding or drainage. wound vac in place and functional I discussed with the patient about the findings in surgery and the pt's progress. Good healing granulation tissue. We reviewed expectations for progress in the hospital; what the pt could expect for recovery time and length of stay. We discussed the importance of walking and pulmonary toilet to avoid blood clots and pneumonia. Continue current plans for pulmonary toilet, GI and DVT prophylaxis. We shall continue the current plan for pain management as it is at an appropriate level, and working well for the pt. Appropriate measures will be taken for constipation prevention, and this was also reviewed with the pt. The wound care plan was reviewed with nursing as well. see orders -cont abx onto 12/14 -pt refuses PICC. change IV's as needed pulm toilet PT pt is meeting nutritional goals. -I will remove the VAC on Gisele and see what kind of take we have and pro ceed from there. VAC should not be removed prior to this time. All pt questions were answered and reviewed prognosis and d/w date. I am conserved that there are some social stresses and family issues which may preclude her from going home, including basic sanitation. 3 hrs spent in direct care of this pt today. ? Objective Last Vital Signs Temp 37 C 11/29/21 17:11 Pulse 84 11/29/21 17:11 Resp 18 11/29/21 17:11 BP 104/68 11/29/21 17:11 Pulse Ox 98 11/29/21 17:11 Laboratory Results - last 24 hr 11/26/21 11/26/21 11/27/21 06:36 06:36 12:30 IgG Total 2380 H IgG1 1640 H IgG2 617 IgG3 189.0 H IgG4 173.0 H Ur Strep pneumoniae Ag Negative B-(1,3)-D-Glucan Quant 78 A B-(1,3)-D-Glucan Qual Indeterminate A
[2021-11-29 23:05] LABS: Blastomyces Ag Result Not Detected; Blastomyces Ag Value Not Detected
[2021-11-30] MEDS: metroNIDAZOLE 500 MG/100 ML BAG 100 MG IVPB ×3 (02:01→18:28)
[2021-11-30] MEDS: Normal Saline Flush 10 ML SYR IVP ×3 (02:02→18:28)
[2021-11-30] MEDS: LORazepam 0.5 MG TAB PO ×2 (02:07→12:21)
[2021-11-30] MEDS: Tiotropium Bromide-Respimat 10 PUFF INH 2 PUFF IH (07:46)
[2021-11-30] MEDS: DULoxetine 20 MG CAP PO ×2 (07:57→19:40)
[2021-11-30] MEDS: methIMAzole 5 MG TAB PO (07:57)
[2021-11-30] MEDS: Famotidine 20 MG TAB PO ×2 (07:57→19:40)
[2021-11-30] MEDS: Cyanocobalamin 500 MCG TAB 1000 MCG PO (07:58)
[2021-11-30] MEDS: Ascorbic Acid 500 MG TAB PO ×2 (07:58→19:41)
[2021-11-30] MEDS: Zinc Sulfate 220 MG TAB PO (07:58)
[2021-11-30] MEDS: Buprenorphine/Naloxone 2 mg/0.5 mg FILM 1 EACH SL (07:59)
[2021-11-30] MEDS: Buprenorphine/Naloxone 8 mg/2 mg FILM 2 EACH SL (07:59)
[2021-11-30] MEDS: Acetaminophen 325 MG TAB 650 MG PO ×3 (08:40→19:41)
[2021-11-30 08:58] VITALS: BP 113/78; PULSE 81; RESP 17; TEMP 37.3; O2SAT 100
--- NOTE | 2021-11-30 09:11 | PGE_ITS ---
Assessment and Plan Assessment and plan (1) Bronchiectasis: Status: Acute (2) Bullous emphysema: Status: Acute (3) Pneumonia: Status: Acute (4) Smoker unmotivated to quit: Status: Chronic (5) COPD (chronic obstructive pulmonary disease): Status: Chronic (6) Asthma: Status: Chronic Assessment and plan: This is a 36 yo female who has a history of asthma and smoking who has had recurrent pnuemonias this year. Her Chest CT is significant for bullous emphysema and cystic appearing bronchiectasis much more severe than would be expected given her age. The RUL lung infiltrate is most likely inflammatory in nature as opposed to malignancy, but I will obtain reimaging as an outpatient to assess for resolution. She has significant left>right bronchiectasis with volume loss and significant consolidaiton with no history of chest tubes or surgery on that side of the chest. The differential for this is broad but includes infection (including AFB), immunodeficiency, rheumatologic or less likely cystic fibrosis. I will begin the work up for these, but ultimately will complete the work up for this as an outpatient. I did recommend bronchoscopy to sample both the RUL infiltrate and the LLL consolidations but she refused this tearfully s tating she does not want anesthesia (GA would be indicated for her for this procedure given her history of opiod use). She completed the 7% HTS challenge that found it was safe in her, so I started this bid. Her spirometry also revealed that she does have moderate COPD. Her immunoglobulins were normal as was her alpha 1 antitrypsan level. Her autoimmune panel was also non revealing. Bullous emphysema with COPD - continue Spiriva - would discharge on this - agree with prn albuterol neb - alpha 1 anti-trypsin test returns as normal Bronchiectasis - Immunoglobulins normal - HIV negative from this admission - NINI and ANCA negative - sweat chloride testing will be done at [facility] [place] as an outpatient - continue Acapella bid after albuterol neb bid - continue 7% HTS nebs bid - would discharge on this - sputum culture nonrevealing RUL infiltrate - repeat chest CT imaging in 2 months - will set up a f/u visit with me shortly after this chest CT. General Date Of Service Date of service: 11/30/21 Time of Service: 08:15 Requesting physician: Susana Richey Reason for Consult: Abnormal chest CT Subjective Note Note: Nicol tells me she is in pain today but had her surgery yesterday and is hopeful. She is coughing up more mucus since starting the hypertonic saline nebs. She also did start the inhaler. Exam Narrative Exam Narrative: Gen: NAD, normal respiratory effort, well-nourished HENT: PERRL, nasal turbinates normal without erythema or inflammation, moist oral mucosa, Mallampati 2, No LAD or JVD Chest: No respiratory distress, normal appearance of chest, clear to auscu ltation bilaterally, no crackles or wheezes, normal inspiratory effort Heart: regular rate and rhythym, no murmurs, rubs or gallops Abdomen: Non-distended, soft, non tender Extremities: No clubbing, edema, cyanosis, rashes. Wound vac on right ankle. Neuro: AAOx3 , non focal Psych: cooperative, appropriate mental affect Objective Last Vital Signs Temp 37.3 C 11/30/21 08:58 Pulse 81 11/30/21 08:58 Resp 17 11/30/21 08:58 BP 113/78 11/30/21 08:58 Pulse Ox 100 11/30/21 08:58 Laboratory Results - last 24 hr 11/26/21 11/26/21 11/27/21 06:36 06:36 12:30 IgG Total 2380 H IgG1 1640 H IgG2 617 IgG3 189.0 H IgG4 173.0 H Blastomyces Ag Result Not Detected Blastomyces Ag Comment Not Detected Ur Strep pneumoniae Ag B-(1,3)-D-Glucan Quant 78 A B-(1,3)-D-Glucan Qual Indeterminate A 11/27/21 12:30 IgG Total IgG1 IgG2 IgG3 IgG4 Blastomyces Ag Result Blastomyces Ag Comment Ur Strep pneumoniae Ag Negative B-(1,3)-D-Glucan Quant B-(1,3)-D-Glucan Qual Results Medications Medications: Active Medications Generic Name Dose Route Start Last Admin Trade Name Freq PRN Reason Stop Dose Admin Acetaminophen 650 mg 11/14/21 14:02 11/30/21 08:40 Acetaminophen 325 Mg Tab PO 650 mg Q6H PRN PRN Administration Albuterol Sulfate 2.5 mg 11/13/21 15:30 Albuterol 2.5 Mg/3 Ml Inh Soln Vial UPD Q4H PRN PRN Ascorbic Acid 500 mg 11/13/21 20:00 03/04/22 07:58 Ascorbic Acid 500 Mg Tab PO 500 mg BID HANSA Administration Buprenorphine/Naloxone 2 each 11/15/21 08:30 11/30/21 07:59 Buprenorphine/Naloxone 8 Mg/2 Mg Film SL 2 each DAILY HANSA Administration Buprenorphine/Naloxone 1 each 11/15/21 08:30 11/30/21 07:59 Buprenorphine/Naloxone 2 Mg/0.5 Mg Film SL 1 each DAILY HANSA Administration Cyanocobalamin 1,000 mcg 11/15/21 08:30 11/30/21 07:58 Cyanocobalamin 500 Mcg Tab PO 1,000 mcg DAILY HANSA Administration Duloxetine HCl 20 mg 11/23/21 09:00 11/30/21 07:57 Duloxetine 20 Mg Cap PO 20 mg DAILY HANSA Administration Enoxaparin Sodium 40 mg 11/14/21 10:00 11/29/21 09:08 Enoxaparin 40 Mg/0.4 Ml Syr SC Not Given Q24H HANSA Famotidine 20 mg 11/18/21 20:00 11/30/21 07:57 Famotidine 20 Mg Tab PO 20 mg BID HANSA Administration Gabapentin 600 mg 11/23/21 22:00 11/29/21 21:12 Gabapentin 300 Mg Cap PO 600 mg HS HANSA Administration Gabapentin 300 mg 11/24/21 14:00 11/29/21 16:03 Gabapentin 300 Mg Cap PO 300 mg DAILY@1400 HANSA Administration Hydroxyzine Pamoate 25 mg 11/13/21 18:21 11/27/21 06:07 Hydroxyzine Pamoate 25 Mg Cap PO 25 mg TID PRN PRN Administration Sodium Chloride 500 mls @ 0 mls/hr 11/13/21 15:30 11/29/21 16:04 Saline 500ml Bag IV 30 mls/hr PRN PRN Administration As Directed Ceftriaxone Sodium/Dextrose 2 gm in 50 mls @ 100 mls/hr 11/22/21 16:00 11/29/21 16:03 Rocephin IVPB 100 mls/hr Q24H HANSA Administration Metronidazole 500 mg in 100 mls @ 100 mls/hr 11/23/21 10:00 11/30/21 02:01 Flagyl IVPB 100 mls/hr Q8H HANSA Administration IV Miscellaneous Supplies 1 each 11/13/21 15:30 Iv Access IV DIRECTED HANSA Lactobacillus Acidophilus/Casei 1 cap 11/14/21 08:30 11/30/21 07:57 L. Acidophilus, Casei, Rhamnosus Cap PO 1 cap DAILY HANSA Administration Lidocaine HCl 50 ml 11/16/21 16:00 11/19/21 14:57 Lidocaine 4% Topical Solution 50 Ml Btl MM 3 ml DIRECTED HANSA Administration Lorazepam 0.5 mg 11/17/21 17:24 11/30/21 02:07 Lorazepam 0.5 Mg Tab PO 0.5 mg TID PRN PRN Administration Lorazepam 1 mg 11/19/21 10:30 11/26/21 14:16 Lorazepam 2 Mg/Ml Vial IVP 1 mg MOFR@1030 HANSA Administration Megestrol Acetate 80 mg 11/24/21 08:30 11/30/21 07:58 Megestrol 40 Mg Tab PO 80 mg QID HANSA Administration Methimazole 5 mg 11/16/21 08:30 11/30/21 07:57 Methimazole 5 Mg Tab PO 5 mg DAILY HANSA Administration Multi-Ingredient Supplement 1 ounce 11/13/21 20:00 11/30/21 08:00 Protein Nutritional Supplement 16 Gm 1 Ounce Packet PO Not Given TID [facility] Nicotine 1 cartridge 11/13/21 18:21 11/18/21 13:12 Nicotine 10 Mg/Cartridge 30 Cart/Pkg IH 1 cartridge Q2H PRN PRN Administration Ondansetron HCl 4 mg 11/13/21 16:43 Ondansetron 4 Mg/2 Ml Vial IVP Q4H PRN PRN Polyethylene Glycol 17 gm 11/13/21 17:07 Polyethylene Glycol 3350 17 Gm Packet PO DAILY PRN PRN Sodium Chloride 0 ml 11/13/21 15:30 11/30/21 02:02 Normal Saline Flush 10 Ml Syr IVP 10 ml PRN PRN Administration Sodium Chloride 4 ml 11/28/21 08:30 11/29/21 19:33 Sodium Chloride 7% For Inhalation 4 Ml Vial IH 4 ml BID HANSA Administration Tiotropium Gifford 2 puff 11/29/21 08:30 11/30/21 07:46 Tiotropium Gifford-Respimat 10 Puff Inh IH 2 inh DAILY HANSA Administration Tramadol HCl 150 mg 11/19/21 10:45 11/26/21 13:50 Tramadol 50 Mg Tab PO Not Given MOFR@1000 HANSA Tramadol HCl 50 mg 11/26/21 22:00 11/29/21 21:13 Tramadol 50 Mg Tab PO 50 mg HS HANSA Administration Tramadol HCl 50 mg 11/27/21 08:30 11/29/21 08:30 Tramadol 50 Mg Tab PO Not Given SuTuWeThSa [facility] Zinc Sulfate 220 mg 11/14/21 08:30 11/30/21 07:58 Zinc Sulfate 220 Mg Tab PO 220 mg DAILY HANSA Administration Allergies Penicillins Allergy (Unknown, Verified 11/13/21 14:49) Hives Labs Result Diagrams: 11/26/21 07:30 11/26/21 07:30 Labs: 11/29/21 12:45 Sputum Sputum Culture - Pending 11/29/21 12:45 Sputum Gram Stain - Final 11/22/21 19:00 Urine - Reflex from Ua Urine Culture - Final 11/13/21 15:21 Ankle - Right Skin Culture - Final Escherichia coli Group B Streptococcus Normal Gillian 11/13/21 15:44 Ankle - Right Anaerobic Culture - Final 11/13/21 15:44 Ankle - Right Anaerobic Culture - Final Anaerobic Gram Positive Cocci 11/13/21 15:44 Ankle - Right Wound Culture - Final Escherichia coli Group B Streptococcus Normal Gillian 11/13/21 15:44 Ankle - Right Gram Stain - Final 11/13/21 22:10 Blood Blood Culture - Final NO GROWTH 120 HOURS 11/13/21 22:00 Blood Blood Culture - Final NO GROWTH 120 HOURS 11/15/21 16:15 Nose MRSA Screen - Final Laboratory Tests Range/Units 11/13/21 11/13/21 11/13/21 10:10 10:10 10:10 WBC (4.4-10.8) 10^3/uL RBC (3.93-5.22) 10^6/uL Hgb (11.2-15.7) g/dL Hct (36.0-46.0) % MCV (80-95) fL MCH (27.0-33.0) pg MCHC (32.0-36.0) % RDW (11.7-14.6) % Plt Count (130-400) 10^3/uL MPV (8.0-11.0) fL Immature Gran % Neutrophils % Band Neutrophils % Lymphocytes % Monocytes % Eosinophils % Basophils % Nucleated RBC % % Absolute Neutrophils (1.2-6.7) 10^3/uL Absolute Lymphocytes (1.2-3.4) 10^3/uL Absolute Monocytes (0.1-0.8) 10^3/uL Absolute Eosinophils (0.0-0.7) 10^3/uL Absolute Basophils (0.0-0.2) 10^3/uL RBC Morphology ESR (0-20) mm/hr 87 H D-Dimer (<500) ng/mlFEU VBG Lactate (0.6-1.4) mmol/L 1.6 H Sodium (136-145) mmol/L 138 Potassium (3.5-5.1) mmol/L 2.6 L* Chloride (98-107) mmol/L 102 Carbon Dioxide (21.0-32.0) mmol/L 24.8 Anion Gap (3-11) mmol/L 11.2 H BUN (7-18) mg/dL 24 H Creatinine (0.55-1.02) mg/dL 0.8 Estimated GFR/1.73 m2 (mL/min/1.73m2) >= 60.00 Glucose (74-106) mg/dL 186 H Hemoglobin A1c (<5.7) % Calcium (8.5-10.1) mg/dL 9.1 Phosphorus (2.6-4.7) mg/dL Magnesium (1.8-2.4) mg/dL Total Bilirubin (0.2-1.0) mg/dL 0.2 GGT (5-55) U/L AST (15-37) U/L 16 ALT (14-59) U/L 27 Alkaline Phosphatase (46-116) U/L 129 H C-Reactive Protein (0.0-0.3) mg/dL 11.51 H Total Protein (6.4-8.2) g/dL 8.5 H Albumin (3.4-5.0) g/dL 2.4 L Prealbumin (20-40) mg/dL Kcmjk-8-[id number] (90-200) mg/dL Vitamin B12 (193-986) pg/mL 25-OH Vitamin D Total (30-100) ng/mL Folate (8.6-20.0) ng/mL Procalcitonin ng/mL TSH (0.36-3.74) uIU/mL Free T4 (0.76-1.46) ng/dL Total T3 (97-169) ng/dL Thyroid Stim Immunoglob (<=1.3) TSI index Urine Color (Yellow) Urine Clarity (Clear) Urine pH (5-8) Ur Specific Strawberry (1.005-1.025) Urine Protein (Negative) mg/dL Urine Ketones (Negative) mg/dL Urine Blood (Negative) Urine Nitrite (Negative) Urine Bilirubin (Negative) Urine Urobilinogen (Up TO 0.2) EU/dL Ur Leukocyte Esterase (Negative) Urine RBC (0-2) HPF Urine WBC (0-5) HPF Ur Epithelial Cells (Negative) HPF Urine Crystals (Negative) HPF Urine Bacteria (Negative) HPF Urine Casts (Negative) LPF Urine Mucus (Negative) Urine Other (Negative) Ur Culture Indicated? Urine Glucose (Negative) mg/dL Stool Calprotectin mcg/g Vancomycin Trough (10.0-20.0) ug/mL Urine Opiates Screen (Negative) Urine Methadone Screen (Negative) Ur Barbiturates Screen (Negative) Ur Tricyclics Screen (Negative) Ur Amphetamines Screen (Negative) U Benzodiazepines Scrn (Negative) Urine Cocaine Screen (Negative) Ur THC Screen (Negative) IgG (610-1,616) mg/dL IgG Total (767 - 1590) mg/dL IgG1 (341 - 894) mg/dL IgG2 (171 - 632) mg/dL IgG3 (18.4-106.0) mg/dL IgG4 (2.4-121.0) mg/dL IgA (85-499) mg/dL IgM (35-242) mg/dL IgE (<158) IU/mL NINI Titer NINI Titer 2 NINI Titer 3 NINI Interpretation (Negative) ANCA Immunofluorescen (Negative) ANCA Titer ANCA Pattern Thyroperoxidase Ab (<=60) IU/mL Thyroglobulin Antibody (<=60) IU/mL Blastomyces Ag Result Blastomyces Ag Comment ng/mL COVID-19 Source SARS-CoV-2 (PCR) Hep Bs Antigen (Negative) Hep Bs Antibody (See Note) Hep Bs Antibody, Quant (See Note) mIU/mL Hep B Core Total Ab (Negative) Hepatitis C Antibody (Negative) HIV 1&2 Ag/Ab, 4th Gen (Negative) Urine Legionella Ag (Negative) Ur Strep pneumoniae Ag (Negative) B-(1,3)-D-Glucan Quant (<60 pg/mL) pg/mL B-(1,3)-D-Glucan Qual (Negative) Add-On Test Request Patient ABO/Rh Antibody Screen Range/Units 11/13/21 11/13/21 11/13/21 10:10 10:10 13:07 WBC (4.4-10.8) 10^3/uL 28.17 H* RBC (3.93-5.22) 10^6/uL 4.46 Hgb (11.2-15.7) g/dL 11.7 Hct (36.0-46.0) % 37.6 MCV (80-95) fL 84.3 MCH (27.0-33.0) pg 26.2 L MCHC (32.0-36.0) % 31.1 L RDW (11.7-14.6) % 16.7 H Plt Count (130-400) 10^3/uL 612 H MPV (8.0-11.0) fL 9.5 Immature Gran % 0.0 Neutrophils % 79.0 Band Neutrophils % 2 Lymphocytes % 11.0 Monocytes % 5.0 Eosinophils % 1.0 Basophils % 2.0 Nucleated RBC % % 0 Absolute Neutrophils (1.2-6.7) 10^3/uL 22.82 H Absolute Lymphocytes (1.2-3.4) 10^3/uL 3.10 Absolute Monocytes (0.1-0.8) 10^3/uL 1.41 H Absolute Eosinophils (0.0-0.7) 10^3/uL 0.28 Absolute Basophils (0.0-0.2) 10^3/uL 0.56 H RBC Morphology Normal ESR (0-20) mm/hr D-Dimer (<500) ng/mlFEU VBG Lactate (0.6-1.4) mmol/L Sodium (136-145) mmol/L Potassium (3.5-5.1) mmol/L Chloride (98-107) mmol/L Carbon Dioxide (21.0-32.0) mmol/L Anion Gap (3-11) mmol/L BUN (7-18) mg/dL Creatinine (0.55-1.02) mg/dL Estimated GFR/1.73 m2 (mL/min/1.73m2) Glucose (74-106) mg/dL Hemoglobin A1c (<5.7) % 5.1 Calcium (8.5-10.1) mg/dL Phosphorus (2.6-4.7) mg/dL Magnesium (1.8-2.4) mg/dL Total Bilirubin (0.2-1.0) mg/dL GGT (5-55) U/L AST (15-37) U/L ALT (14-59) U/L Alkaline Phosphatase (46-116) U/L C-Reactive Protein (0.0-0.3) mg/dL Total Protein (6.4-8.2) g/dL Albumin (3.4-5.0) g/dL Prealbumin (20-40) mg/dL Gbfrz-1-Zxfhfnxcsuq (90-200) mg/dL Vitamin B12 (193-986) pg/mL 25-OH Vitamin D Total (30-100) ng/mL Folate (8.6-20.0) ng/mL Procalcitonin ng/mL TSH (0.36-3.74) uIU/mL Free T4 (0.76-1.46) ng/dL Total T3 (97-169) ng/dL Thyroid Stim Immunoglob (<=1.3) TSI index Urine Color (Yellow) Urine Clarity (Clear) Urine pH (5-8) Ur Specific Strawberry (1.005-1.025) Urine Protein (Negative) mg/dL Urine Ketones (Negative) mg/dL Urine Blood (Negative) Urine Nitrite (Negative) Urine Bilirubin (Negative) Urine Urobilinogen (Up TO 0.2) EU/dL Ur Leukocyte Esterase (Negative) Urine RBC (0-2) HPF Urine WBC (0-5) HPF Ur Epithelial Cells (Negative) HPF Urine Crystals (Negative) HPF Urine Bacteria (Negative) HPF Urine Casts (Negative) LPF Urine Mucus (Negative) Urine Other (Negative) Ur Culture Indicated? Urine Glucose (Negative) mg/dL Stool Calprotectin mcg/g Vancomycin Trough (10.0-20.0) ug/mL Urine Opiates Screen (Negative) Urine Methadone Screen (Negative) Ur Barbiturates Screen (Negative) Ur Tricyclics Screen (Negative) Ur Amphetamines Screen (Negative) U Benzodiazepines Scrn (Negative) Urine Cocaine Screen (Negative) Ur THC Screen (Negative) IgG (610-1,616) mg/dL IgG Total (767 - 1590) mg/dL IgG1 (341 - 894) mg/dL IgG2 (171 - 632) mg/dL IgG3 (18.4-106.0) mg/dL IgG4 (2.4-121.0) mg/dL IgA (85-499) mg/dL IgM (35-242) mg/dL IgE (<158) IU/mL NINI Titer NINI Titer 2 NINI Titer 3 NINI Interpretation (Negative) ANCA Immunofluorescen (Negative) ANCA Titer ANCA Pattern Thyroperoxidase Ab (<=60) IU/mL Thyroglobulin Antibody (<=60) IU/mL Blastomyces Ag Result Blastomyces Ag Comment ng/mL COVID-19 Source Cancelled SARS-CoV-2 (PCR) Cancelled Hep Bs Antigen (Negative) Hep Bs Antibody (See Note) Hep Bs Antibody, Quant (See Note) mIU/mL Hep B Core Total Ab (Negative) Hepatitis C Antibody (Negative) HIV 1&2 Ag/Ab, 4th Gen (Negative) Urine Legionella Ag (Negative) Ur Strep pneumoniae Ag (Negative) B-(1,3)-D-Glucan Quant (<60 pg/mL) pg/mL B-(1,3)-D-Glucan Qual (Negative) Add-On Test Request Patient ABO/Rh Antibody Screen Range/Units 11/13/21 11/13/21 11/13/21 13:12 13:47 14:00 WBC (4.4-10.8) 10^3/uL RBC (3.93-5.22) 10^6/uL Hgb (11.2-15.7) g/dL Hct (36.0-46.0) % MCV (80-95) fL MCH (27.0-33.0) pg MCHC (32.0-36.0) % RDW (11.7-14.6) % Plt Count (130-400) 10^3/uL MPV (8.0-11.0) fL Immature Gran % Neutrophils % Band Neutrophils % Lymphocytes % Monocytes % Eosinophils % Basophils % Nucleated RBC % % Absolute Neutrophils (1.2-6.7) 10^3/uL Absolute Lymphocytes (1.2-3.4) 10^3/uL Absolute Monocytes (0.1-0.8) 10^3/uL Absolute Eosinophils (0.0-0.7) 10^3/uL Absolute Basophils (0.0-0.2) 10^3/uL RBC Morphology ESR (0-20) mm/hr D-Dimer (<500) ng/mlFEU VBG Lactate (0.6-1.4) mmol/L Sodium (136-145) mmol/L Cancelled Potassium (3.5-5.1) mmol/L Cancelled Chloride (98-107) mmol/L Cancelled Carbon Dioxide (21.0-32.0) mmol/L Cancelled Anion Gap (3-11) mmol/L Cancelled BUN (7-18) mg/dL Cancelled Creatinine (0.55-1.02) mg/dL Cancelled Estimated GFR/1.73 m2 (mL/min/1.73m2) Cancelled Glucose (74-106) mg/dL Cancelled Hemoglobin A1c (<5.7) % Calcium (8.5-10.1) mg/dL Cancelled Phosphorus (2.6-4.7) mg/dL Magnesium (1.8-2.4) mg/dL Total Bilirubin (0.2-1.0) mg/dL GGT (5-55) U/L AST (15-37) U/L ALT (14-59) U/L Alkaline Phosphatase (46-116) U/L C-Reactive Protein (0.0-0.3) mg/dL Total Protein (6.4-8.2) g/dL Albumin (3.4-5.0) g/dL Prealbumin (20-40) mg/dL Eyuni-7-Sfwgusiyutt (90-200) mg/dL Vitamin B12 (193-986) pg/mL 25-OH Vitamin D Total (30-100) ng/mL Folate (8.6-20.0) ng/mL Procalcitonin ng/mL TSH (0.36-3.74) uIU/mL Free T4 (0.76-1.46) ng/dL Total T3 (97-169) ng/dL Thyroid Stim Immunoglob (<=1.3) TSI index Urine Color (Yellow) Urine Clarity (Clear) Urine pH (5-8) Ur Specific Strawberry (1.005-1.025) Urine Protein (Negative) mg/dL Urine Ketones (Negative) mg/dL Urine Blood (Negative) Urine Nitrite (Negative) Urine Bilirubin (Negative) Urine Urobilinogen (Up TO 0.2) EU/dL Ur Leukocyte Esterase (Negative) Urine RBC (0-2) HPF Urine WBC (0-5) HPF Ur Epithelial Cells (Negative) HPF Urine Crystals (Negative) HPF Urine Bacteria (Negative) HPF Urine Casts (Negative) LPF Urine Mucus (Negative) Urine Other (Negative) Ur Culture Indicated? Urine Glucose (Negative) mg/dL Stool Calprotectin mcg/g Vancomycin Trough (10.0-20.0) ug/mL Urine Opiates Screen (Negative) Negative Urine Methadone Screen (Negative) Negative Ur Barbiturates Screen (Negative) Negative Ur Tricyclics Screen (Negative) Negative Ur Amphetamines Screen (Negative) Negative U Benzodiazepines Scrn (Negative) Negative Urine Cocaine Screen (Negative) Negative Ur THC Screen (Negative) Negative IgG (610-1,616) mg/dL IgG Total (767 - 1590) mg/dL IgG1 (341 - 894) mg/dL IgG2 (171 - 632) mg/dL IgG3 (18.4-106.0) mg/dL IgG4 (2.4-121.0) mg/dL IgA (85-499) mg/dL IgM (35-242) mg/dL IgE (<158) IU/mL NINI Titer NINI Titer 2 NINI Titer 3 NINI Interpretation (Negative) ANCA Immunofluorescen (Negative) ANCA Titer ANCA Pattern Thyroperoxidase Ab (<=60) IU/mL Thyroglobulin Antibody (<=60) IU/mL Blastomyces Ag Result Blastomyces Ag Comment ng/mL COVID-19 Source NASAL SARS-CoV-2 (PCR) Negative Hep Bs Antigen (Negative) Hep Bs Antibody (See Note) Hep Bs Antibody, Quant (See Note) mIU/mL Hep B Core Total Ab (Negative) Hepatitis C Antibody (Negative) HIV 1&2 Ag/Ab, 4th Gen (Negative) Urine Legionella Ag (Negative) Ur Strep pneumoniae Ag (Negative) B-(1,3)-D-Glucan Quant (<60 pg/mL) pg/mL B-(1,3)-D-Glucan Qual (Negative) Add-On Test Request Patient ABO/Rh Antibody Screen Range/Units 11/13/21 11/13/21 11/13/21 14:25 14:30 20:09 WBC (4.4-10.8) 10^3/uL RBC (3.93-5.22) 10^6/uL Hgb (11.2-15.7) g/dL Hct (36.0-46.0) % MCV (80-95) fL MCH (27.0-33.0) pg MCHC (32.0-36.0) % RDW (11.7-14.6) % Plt Count (130-400) 10^3/uL MPV (8.0-11.0) fL Immature Gran % Neutrophils % Band Neutrophils % Lymphocytes % Monocytes % Eosinophils % Basophils % Nucleated RBC % % Absolute Neutrophils (1.2-6.7) 10^3/uL Absolute Lymphocytes (1.2-3.4) 10^3/uL Absolute Monocytes (0.1-0.8) 10^3/uL Absolute Eosinophils (0.0-0.7) 10^3/uL Absolute Basophils (0.0-0.2) 10^3/uL RBC Morphology ESR (0-20) mm/hr D-Dimer (<500) ng/mlFEU VBG Lactate (0.6-1.4) mmol/L Sodium (136-145) mmol/L 139 Potassium (3.5-5.1) mmol/L 3.5 Chloride (98-107) mmol/L 107 Carbon Dioxide (21.0-32.0) mmol/L 22.6 Anion Gap (3-11) mmol/L 9.4 BUN (7-18) mg/dL 18 D Creatinine (0.55-1.02) mg/dL 0.5 L D Estimated GFR/1.73 m2 (mL/min/1.73m2) >= 60.00 Glucose (74-106) mg/dL 91 D Hemoglobin A1c (<5.7) % Calcium (8.5-10.1) mg/dL 8.1 L Phosphorus (2.6-4.7) mg/dL Magnesium (1.8-2.4) mg/dL Total Bilirubin (0.2-1.0) mg/dL GGT (5-55) U/L 34 AST (15-37) U/L ALT (14-59) U/L Alkaline Phosphatase (46-116) U/L C-Reactive Protein (0.0-0.3) mg/dL Total Protein (6.4-8.2) g/dL Albumin (3.4-5.0) g/dL Prealbumin (20-40) mg/dL Qyvpp-4-Hosgbbavnxc (90-200) mg/dL Vitamin B12 (193-986) pg/mL 25-OH Vitamin D Total (30-100) ng/mL Folate (8.6-20.0) ng/mL Procalcitonin ng/mL TSH (0.36-3.74) uIU/mL Free T4 (0.76-1.46) ng/dL Total T3 (97-169) ng/dL Thyroid Stim Immunoglob (<=1.3) TSI index Urine Color (Yellow) Yellow Urine Clarity (Clear) Sl Cloudy Urine pH (5-8) 7.0 Ur Specific Strawberry (1.005-1.025) 1.015 Urine Protein (Negative) mg/dL Trace H Urine Ketones (Negative) mg/dL Negative Urine Blood (Negative) Moderate H Urine Nitrite (Negative) Negative Urine Bilirubin (Negative) Negative Urine Urobilinogen (Up TO 0.2) EU/dL 1.0 H Ur Leukocyte Esterase (Negative) Negative Urine RBC (0-2) HPF 10-20 H Urine WBC (0-5) HPF 3-5 Ur Epithelial Cells (Negative) HPF Few Urine Crystals (Negative) HPF Negative Urine Bacteria (Negative) HPF Rare Urine Casts (Negative) LPF Negative Urine Mucus (Negative) Negative Urine Other (Negative) Ur Culture Indicated? No Urine Glucose (Negative) mg/dL Negative Stool Calprotectin mcg/g Vancomycin Trough (10.0-20.0) ug/mL Urine Opiates Screen (Negative) Urine Methadone Screen (Negative) Ur Barbiturates Screen (Negative) Ur Tricyclics Screen (Negative) Ur Amphetamines Screen (Negative) U Benzodiazepines Scrn (Negative) Urine Cocaine Screen (Negative) Ur THC Screen (Negative) IgG (610-1,616) mg/dL IgG Total (767 - 1590) mg/dL IgG1 (341 - 894) mg/dL IgG2 (171 - 632) mg/dL IgG3 (18.4-106.0) mg/dL IgG4 (2.4-121.0) mg/dL IgA (85-499) mg/dL IgM (35-242) mg/dL IgE (<158) IU/mL NINI Titer NINI Titer 2 NINI Titer 3 NINI Interpretation (Negative) ANCA Immunofluorescen (Negative) ANCA Titer ANCA Pattern Thyroperoxidase Ab (<=60) IU/mL Thyroglobulin Antibody (<=60) IU/mL Blastomyces Ag Result Blastomyces Ag Comment ng/mL COVID-19 Source SARS-CoV-2 (PCR) Hep Bs Antigen (Negative) Hep Bs Antibody (See Note) Hep Bs Antibody, Quant (See Note) mIU/mL Hep B Core Total Ab (Negative) Hepatitis C Antibody (Negative) HIV 1&2 Ag/Ab, 4th Gen (Negative) Urine Legionella Ag (Negative) Ur Strep pneumoniae Ag (Negative) B-(1,3)-D-Glucan Quant (<60 pg/mL) pg/mL B-(1,3)-D-Glucan Qual (Negative) Add-On Test Request Patient ABO/Rh Antibody Screen Range/Units 11/13/21 11/13/21 11/14/21 22:35 Unknown 06:35 WBC (4.4-10.8) 10^3/uL RBC (3.93-5.22) 10^6/uL Hgb (11.2-15.7) g/dL Hct (36.0-46.0) % MCV (80-95) fL MCH (27.0-33.0) pg MCHC (32.0-36.0) % RDW (11.7-14.6) % Plt Count (130-400) 10^3/uL MPV (8.0-11.0) fL Immature Gran % Neutrophils % Band Neutrophils % Lymphocytes % Monocytes % Eosinophils % Basophils % Nucleated RBC % % Absolute Neutrophils (1.2-6.7) 10^3/uL Absolute Lymphocytes (1.2-3.4) 10^3/uL Absolute Monocytes (0.1-0.8) 10^3/uL Absolute Eosinophils (0.0-0.7) 10^3/uL Absolute Basophils (0.0-0.2) 10^3/uL RBC Morphology ESR (0-20) mm/hr D-Dimer (<500) ng/mlFEU VBG Lactate (0.6-1.4) mmol/L Sodium (136-145) mmol/L Potassium (3.5-5.1) mmol/L Chloride (98-107) mmol/L Carbon Dioxide (21.0-32.0) mmol/L Anion Gap (3-11) mmol/L BUN (7-18) mg/dL Creatinine (0.55-1.02) mg/dL Estimated GFR/1.73 m2 (mL/min/1.73m2) Glucose (74-106) mg/dL Hemoglobin A1c (<5.7) % Calcium (8.5-10.1) mg/dL Phosphorus (2.6-4.7) mg/dL Magnesium (1.8-2.4) mg/dL 1.6 L Total Bilirubin (0.2-1.0) mg/dL GGT (5-55) U/L AST (15-37) U/L ALT (14-59) U/L Alkaline Phosphatase (46-116) U/L C-Reactive Protein (0.0-0.3) mg/dL Cancelled 11.11 H Total Protein (6.4-8.2) g/dL Albumin (3.4-5.0) g/dL Prealbumin (20-40) mg/dL Lhlkz-3-Nhxmmsigkoh (90-200) mg/dL Vitamin B12 (193-986) pg/mL 389 25-OH Vitamin D Total (30-100) ng/mL Folate (8.6-20.0) ng/mL > 20.0 H Procalcitonin ng/mL TSH (0.36-3.74) uIU/mL Free T4 (0.76-1.46) ng/dL Total T3 (97-169) ng/dL Thyroid Stim Immunoglob (<=1.3) TSI index Urine Color (Yellow) Urine Clarity (Clear) Urine pH (5-8) Ur Specific Strawberry (1.005-1.025) Urine Protein (Negative) mg/dL Urine Ketones (Negative) mg/dL Urine Blood (Negative) Urine Nitrite (Negative) Urine Bilirubin (Negative) Urine Urobilinogen (Up TO 0.2) EU/dL Ur Leukocyte Esterase (Negative) Urine RBC (0-2) HPF Urine WBC (0-5) HPF Ur Epithelial Cells (Negative) HPF Urine Crystals (Negative) HPF Urine Bacteria (Negative) HPF Urine Casts (Negative) LPF Urine Mucus (Negative) Urine Other (Negative) Ur Culture Indicated? Urine Glucose (Negative) mg/dL Stool Calprotectin mcg/g Vancomycin Trough (10.0-20.0) ug/mL Urine Opiates Screen (Negative) Urine Methadone Screen (Negative) Ur Barbiturates Screen (Negative) Ur Tricyclics Screen (Negative) Ur Amphetamines Screen (Negative) U Benzodiazepines Scrn (Negative) Urine Cocaine Screen (Negative) Ur THC Screen (Negative) IgG (610-1,616) mg/dL IgG Total (767 - 1590) mg/dL IgG1 (341 - 894) mg/dL IgG2 (171 - 632) mg/dL IgG3 (18.4-106.0) mg/dL IgG4 (2.4-121.0) mg/dL IgA (85-499) mg/dL IgM (35-242) mg/dL IgE (<158) IU/mL NINI Titer NINI Titer 2 NINI Titer 3 NINI Interpretation (Negative) ANCA Immunofluorescen (Negative) ANCA Titer ANCA Pattern Thyroperoxidase Ab (<=60) IU/mL Thyroglobulin Antibody (<=60) IU/mL Blastomyces Ag Result Blastomyces Ag Comment ng/mL COVID-19 Source SARS-CoV-2 (PCR) Hep Bs Antigen (Negative) Hep Bs Antibody (See Note) Hep Bs Antibody, Quant (See Note) mIU/mL Hep B Core Total Ab (Negative) Hepatitis C Antibody (Negative) HIV 1&2 Ag/Ab, 4th Gen (Negative) Urine Legionella Ag (Negative) Ur Strep pneumoniae Ag (Negative) B-(1,3)-D-Glucan Quant (<60 pg/mL) pg/mL B-(1,3)-D-Glucan Qual (Negative) Add-On Test Request DONE Patient ABO/Rh Antibody Screen Range/Units 11/14/21 11/14/21 11/14/21 06:35 06:35 06:35 WBC (4.4-10.8) 10^3/uL RBC (3.93-5.22) 10^6/uL Hgb (11.2-15.7) g/dL Hct (36.0-46.0) % MCV (80-95) fL MCH (27.0-33.0) pg MCHC (32.0-36.0) % RDW (11.7-14.6) % Plt Count (130-400) 10^3/uL MPV (8.0-11.0) fL Immature Gran % Neutrophils % Band Neutrophils % Lymphocytes % Monocytes % Eosinophils % Basophils % Nucleated RBC % % Absolute Neutrophils (1.2-6.7) 10^3/uL Absolute Lymphocytes (1.2-3.4) 10^3/uL Absolute Monocytes (0.1-0.8) 10^3/uL Absolute Eosinophils (0.0-0.7) 10^3/uL Absolute Basophils (0.0-0.2) 10^3/uL RBC Morphology ESR (0-20) mm/hr 41 H D-Dimer (<500) ng/mlFEU VBG Lactate (0.6-1.4) mmol/L Sodium (136-145) mmol/L Potassium (3.5-5.1) mmol/L Chloride (98-107) mmol/L Carbon Dioxide (21.0-32.0) mmol/L Anion Gap (3-11) mmol/L BUN (7-18) mg/dL Creatinine (0.55-1.02) mg/dL Estimated GFR/1.73 m2 (mL/min/1.73m2) Glucose (74-106) mg/dL Hemoglobin A1c (<5.7) % Calcium (8.5-10.1) mg/dL Phosphorus (2.6-4.7) mg/dL Magnesium (1.8-2.4) mg/dL Total Bilirubin (0.2-1.0) mg/dL GGT (5-55) U/L AST (15-37) U/L ALT (14-59) U/L Alkaline Phosphatase (46-116) U/L C-Reactive Protein (0.0-0.3) mg/dL Total Protein (6.4-8.2) g/dL Albumin (3.4-5.0) g/dL Prealbumin (20-40) mg/dL Yyvnu-8-Zydutyrwcor (90-200) mg/dL Vitamin B12 (193-986) pg/mL 25-OH Vitamin D Total (30-100) ng/mL 13.8 L Folate (8.6-20.0) ng/mL Procalcitonin ng/mL TSH (0.36-3.74) uIU/mL Free T4 (0.76-1.46) ng/dL Total T3 (97-169) ng/dL Thyroid Stim Immunoglob (<=1.3) TSI index Urine Color (Yellow) Urine Clarity (Clear) Urine pH (5-8) Ur Specific Strawberry (1.005-1.025) Urine Protein (Negative) mg/dL Urine Ketones (Negative) mg/dL Urine Blood (Negative) Urine Nitrite (Negative) Urine Bilirubin (Negative) Urine Urobilinogen (Up TO 0.2) EU/dL Ur Leukocyte Esterase (Negative) Urine RBC (0-2) HPF Urine WBC (0-5) HPF Ur Epithelial Cells (Negative) HPF Urine Crystals (Negative) HPF Urine Bacteria (Negative) HPF Urine Casts (Negative) LPF Urine Mucus (Negative) Urine Other (Negative) Ur Culture Indicated? Urine Glucose (Negative) mg/dL Stool Calprotectin mcg/g Vancomycin Trough (10.0-20.0) ug/mL Urine Opiates Screen (Negative) Urine Methadone Screen (Negative) Ur Barbiturates Screen (Negative) Ur Tricyclics Screen (Negative) Ur Amphetamines Screen (Negative) U Benzodiazepines Scrn (Negative) Urine Cocaine Screen (Negative) Ur THC Screen (Negative) IgG (610-1,616) mg/dL IgG Total (767 - 1590) mg/dL IgG1 (341 - 894) mg/dL IgG2 (171 - 632) mg/dL IgG3 (18.4-106.0) mg/dL IgG4 (2.4-121.0) mg/dL IgA (85-499) mg/dL IgM (35-242) mg/dL IgE (<158) IU/mL NINI Titer NINI Titer 2 NINI Titer 3 NINI Interpretation (Negative) ANCA Immunofluorescen (Negative) ANCA Titer ANCA Pattern Thyroperoxidase Ab (<=60) IU/mL Thyroglobulin Antibody (<=60) IU/mL Blastomyces Ag Result Blastomyces Ag Comment ng/mL COVID-19 Source SARS-CoV-2 (PCR) Hep Bs Antigen (Negative) Hep Bs Antibody (See Note) Hep Bs Antibody, Quant (See Note) mIU/mL Hep B Core Total Ab (Negative) Hepatitis C Antibody (Negative) HIV 1&2 Ag/Ab, 4th Gen (Negative) Negative Urine Legionella Ag (Negative) Ur Strep pneumoniae Ag (Negative) B-(1,3)-D-Glucan Quant (<60 pg/mL) pg/mL B-(1,3)-D-Glucan Qual (Negative) Add-On Test Request Patient ABO/Rh Antibody Screen Range/Units 11/14/21 11/14/21 11/14/21 06:35 06:35 06:35 WBC (4.4-10.8) 10^3/uL RBC (3.93-5.22) 10^6/uL Hgb (11.2-15.7) g/dL Hct (36.0-46.0) % MCV (80-95) fL MCH (27.0-33.0) pg MCHC (32.0-36.0) % RDW (11.7-14.6) % Plt Count (130-400) 10^3/uL MPV (8.0-11.0) fL Immature Gran % Neutrophils % Band Neutrophils % Lymphocytes % Monocytes % Eosinophils % Basophils % Nucleated RBC % % Absolute Neutrophils (1.2-6.7) 10^3/uL Absolute Lymphocytes (1.2-3.4) 10^3/uL Absolute Monocytes (0.1-0.8) 10^3/uL Absolute Eosinophils (0.0-0.7) 10^3/uL Absolute Basophils (0.0-0.2) 10^3/uL RBC Morphology ESR (0-20) mm/hr D-Dimer (<500) ng/mlFEU VBG Lactate (0.6-1.4) mmol/L Sodium (136-145) mmol/L 141 Potassium (3.5-5.1) mmol/L 3.5 Chloride (98-107) mmol/L 111 H Carbon Dioxide (21.0-32.0) mmol/L 20.5 L Anion Gap (3-11) mmol/L 9.5 BUN (7-18) mg/dL 11 D Creatinine (0.55-1.02) mg/dL 0.6 Estimated GFR/1.73 m2 (mL/min/1.73m2) >= 60.00 Glucose (74-106) mg/dL 84 Hemoglobin A1c (<5.7) % Calcium (8.5-10.1) mg/dL 9.0 Phosphorus (2.6-4.7) mg/dL Magnesium (1.8-2.4) mg/dL Total Bilirubin (0.2-1.0) mg/dL 0.2 GGT (5-55) U/L AST (15-37) U/L 12 L ALT (14-59) U/L 15 Alkaline Phosphatase (46-116) U/L 91 C-Reactive Protein (0.0-0.3) mg/dL Total Protein (6.4-8.2) g/dL 6.4 Albumin (3.4-5.0) g/dL 1.8 L Prealbumin (20-40) mg/dL Ujwsq-7-Exgbboptddd (90-200) mg/dL Vitamin B12 (193-986) pg/mL 25-OH Vitamin D Total (30-100) ng/mL Folate (8.6-20.0) ng/mL Procalcitonin ng/mL TSH (0.36-3.74) uIU/mL Free T4 (0.76-1.46) ng/dL Total T3 (97-169) ng/dL Thyroid Stim Immunoglob (<=1.3) TSI index Urine Color (Yellow) Urine Clarity (Clear) Urine pH (5-8) Ur Specific Strawberry (1.005-1.025) Urine Protein (Negative) mg/dL Urine Ketones (Negative) mg/dL Urine Blood (Negative) Urine Nitrite (Negative) Urine Bilirubin (Negative) Urine Urobilinogen (Up TO 0.2) EU/dL Ur Leukocyte Esterase (Negative) Urine RBC (0-2) HPF Urine WBC (0-5) HPF Ur Epithelial Cells (Negative) HPF Urine Crystals (Negative) HPF Urine Bacteria (Negative) HPF Urine Casts (Negative) LPF Urine Mucus (Negative) Urine Other (Negative) Ur Culture Indicated? Urine Glucose (Negative) mg/dL Stool Calprotectin mcg/g Vancomycin Trough (10.0-20.0) ug/mL Urine Opiates Screen (Negative) Urine Methadone Screen (Negative) Ur Barbiturates Screen (Negative) Ur Tricyclics Screen (Negative) Ur Amphetamines Screen (Negative) U Benzodiazepines Scrn (Negative) Urine Cocaine Screen (Negative) Ur THC Screen (Negative) IgG (610-1,616) mg/dL IgG Total (767 - 1590) mg/dL IgG1 (341 - 894) mg/dL IgG2 (171 - 632) mg/dL IgG3 (18.4-106.0) mg/dL IgG4 (2.4-121.0) mg/dL IgA (85-499) mg/dL IgM (35-242) mg/dL IgE (<158) IU/mL NINI Titer 1:80 Speckled NINI Titer 2 Not Applicable NINI Titer 3 Not Applicable NINI Interpretation (Negative) Positive A ANCA Immunofluorescen (Negative) ANCA Titer ANCA Pattern Thyroperoxidase Ab (<=60) IU/mL Thyroglobulin Antibody (<=60) IU/mL Blastomyces Ag Result Blastomyces Ag Comment ng/mL COVID-19 Source SARS-CoV-2 (PCR) Hep Bs Antigen (Negative) Negative Hep Bs Antibody (See Note) Positive Hep Bs Antibody, Quant (See Note) mIU/mL 22.8 Hep B Core Total Ab (Negative) Negative Hepatitis C Antibody (Negative) Negative HIV 1&2 Ag/Ab, 4th Gen (Negative) Urine Legionella Ag (Negative) Ur Strep pneumoniae Ag (Negative) B-(1,3)-D-Glucan Quant (<60 pg/mL) pg/mL B-(1,3)-D-Glucan Qual (Negative) Add-On Test Request Patient ABO/Rh Antibody Screen Range/Units 11/14/21 11/14/21 11/14/21 06:35 06:35 06:35 WBC (4.4-10.8) 10^3/uL 13.86 H D RBC (3.93-5.22) 10^6/uL 3.54 L Hgb (11.2-15.7) g/dL 9.3 L D Hct (36.0-46.0) % 31.4 L MCV (80-95) fL 88.7 D MCH (27.0-33.0) pg 26.3 L MCHC (32.0-36.0) % 29.6 L RDW (11.7-14.6) % 16.6 H Plt Count (130-400) 10^3/uL 381 D MPV (8.0-11.0) fL 9.6 Immature Gran % 0.4 Neutrophils % 78.5 Band Neutrophils % Lymphocytes % 13.1 Monocytes % 5.6 Eosinophils % 2.2 Basophils % 0.2 Nucleated RBC % % 0 Absolute Neutrophils (1.2-6.7) 10^3/uL 10.88 H Absolute Lymphocytes (1.2-3.4) 10^3/uL 1.82 Absolute Monocytes (0.1-0.8) 10^3/uL 0.78 Absolute Eosinophils (0.0-0.7) 10^3/uL 0.30 Absolute Basophils (0.0-0.2) 10^3/uL 0.03 RBC Morphology ESR (0-20) mm/hr D-Dimer (<500) ng/mlFEU VBG Lactate (0.6-1.4) mmol/L Sodium (136-145) mmol/L Potassium (3.5-5.1) mmol/L Chloride (98-107) mmol/L Carbon Dioxide (21.0-32.0) mmol/L Anion Gap (3-11) mmol/L BUN (7-18) mg/dL Creatinine (0.55-1.02) mg/dL Estimated GFR/1.73 m2 (mL/min/1.73m2) Glucose (74-106) mg/dL Hemoglobin A1c (<5.7) % Calcium (8.5-10.1) mg/dL Phosphorus (2.6-4.7) mg/dL 4.7 Magnesium (1.8-2.4) mg/dL Total Bilirubin (0.2-1.0) mg/dL GGT (5-55) U/L AST (15-37) U/L ALT (14-59) U/L Alkaline Phosphatase (46-116) U/L C-Reactive Protein (0.0-0.3) mg/dL Total Protein (6.4-8.2) g/dL Albumin (3.4-5.0) g/dL Prealbumin (20-40) mg/dL Rgjhb-4-Gbyzsmzldrn (90-200) mg/dL Vitamin B12 (193-986) pg/mL 25-OH Vitamin D Total (30-100) ng/mL Folate (8.6-20.0) ng/mL Procalcitonin ng/mL TSH (0.36-3.74) uIU/mL Free T4 (0.76-1.46) ng/dL Total T3 (97-169) ng/dL Thyroid Stim Immunoglob (<=1.3) TSI index Urine Color (Yellow) Urine Clarity (Clear) Urine pH (5-8) Ur Specific Strawberry (1.005-1.025) Urine Protein (Negative) mg/dL Urine Ketones (Negative) mg/dL Urine Blood (Negative) Urine Nitrite (Negative) Urine Bilirubin (Negative) Urine Urobilinogen (Up TO 0.2) EU/dL Ur Leukocyte Esterase (Negative) Urine RBC (0-2) HPF Urine WBC (0-5) HPF Ur Epithelial Cells (Negative) HPF Urine Crystals (Negative) HPF Urine Bacteria (Negative) HPF Urine Casts (Negative) LPF Urine Mucus (Negative) Urine Other (Negative) Ur Culture Indicated? Urine Glucose (Negative) mg/dL Stool Calprotectin mcg/g Vancomycin Trough (10.0-20.0) ug/mL Urine Opiates Screen (Negative) Urine Methadone Screen (Negative) Ur Barbiturates Screen (Negative) Ur Tricyclics Screen (Negative) Ur Amphetamines Screen (Negative) U Benzodiazepines Scrn (Negative) Urine Cocaine Screen (Negative) Ur THC Screen (Negative) IgG (610-1,616) mg/dL IgG Total (767 - 1590) mg/dL IgG1 (341 - 894) mg/dL IgG2 (171 - 632) mg/dL IgG3 (18.4-106.0) mg/dL IgG4 (2.4-121.0) mg/dL IgA (85-499) mg/dL IgM (35-242) mg/dL IgE (<158) IU/mL NINI Titer NINI Titer 2 NINI Titer 3 NINI Interpretation (Negative) ANCA Immunofluorescen (Negative) ANCA Titer ANCA Pattern Thyroperoxidase Ab (<=60) IU/mL Thyroglobulin Antibody (<=60) IU/mL Blastomyces Ag Result Blastomyces Ag Comment ng/mL COVID-19 Source SARS-CoV-2 (PCR) Hep Bs Antigen (Negative) Hep Bs Antibody (See Note) Hep Bs Antibody, Quant (See Note) mIU/mL Hep B Core Total Ab (Negative) Hepatitis C Antibody (Negative) HIV 1&2 Ag/Ab, 4th Gen (Negative) Urine Legionella Ag (Negative) Ur Strep pneumoniae Ag (Negative) B-(1,3)-D-Glucan Quant (<60 pg/mL) pg/mL B-(1,3)-D-Glucan Qual (Negative) Add-On Test Request DONE Patient ABO/Rh Antibody Screen Range/Units 11/14/21 11/14/21 11/14/21 06:35 06:35 06:35 WBC (4.4-10.8) 10^3/uL RBC (3.93-5.22) 10^6/uL Hgb (11.2-15.7) g/dL Hct (36.0-46.0) % MCV (80-95) fL MCH (27.0-33.0) pg MCHC (32.0-36.0) % RDW (11.7-14.6) % Plt Count (130-400) 10^3/uL MPV (8.0-11.0) fL Immature Gran % Neutrophils % Band Neutrophils % Lymphocytes % Monocytes % Eosinophils % Basophils % Nucleated RBC % % Absolute Neutrophils (1.2-6.7) 10^3/uL Absolute Lymphocytes (1.2-3.4) 10^3/uL Absolute Monocytes (0.1-0.8) 10^3/uL Absolute Eosinophils (0.0-0.7) 10^3/uL Absolute Basophils (0.0-0.2) 10^3/uL RBC Morphology ESR (0-20) mm/hr D-Dimer (<500) ng/mlFEU VBG Lactate (0.6-1.4) mmol/L Sodium (136-145) mmol/L Potassium (3.5-5.1) mmol/L Chloride (98-107) mmol/L Carbon Dioxide (21.0-32.0) mmol/L Anion Gap (3-11) mmol/L BUN (7-18) mg/dL Creatinine (0.55-1.02) mg/dL Estimated GFR/1.73 m2 (mL/min/1.73m2) Glucose (74-106) mg/dL Hemoglobin A1c (<5.7) % Calcium (8.5-10.1) mg/dL Phosphorus (2.6-4.7) mg/dL Magnesium (1.8-2.4) mg/dL Total Bilirubin (0.2-1.0) mg/dL GGT (5-55) U/L AST (15-37) U/L ALT (14-59) U/L Alkaline Phosphatase (46-116) U/L C-Reactive Protein (0.0-0.3) mg/dL Total Protein (6.4-8.2) g/dL Albumin (3.4-5.0) g/dL Prealbumin (20-40) mg/dL Wjemn-5-Pfhxfkuhelu (90-200) mg/dL Vitamin B12 (193-986) pg/mL 25-OH Vitamin D Total (30-100) ng/mL Folate (8.6-20.0) ng/mL Procalcitonin ng/mL 0.1 TSH (0.36-3.74) uIU/mL < 0.01 L Free T4 (0.76-1.46) ng/dL 2.75 H Total T3 (97-169) ng/dL 166 Thyroid Stim Immunoglob (<=1.3) TSI index Urine Color (Yellow) Urine Clarity (Clear) Urine pH (5-8) Ur Specific Strawberry (1.005-1.025) Urine Protein (Negative) mg/dL Urine Ketones (Negative) mg/dL Urine Blood (Negative) Urine Nitrite (Negative) Urine Bilirubin (Negative) Urine Urobilinogen (Up TO 0.2) EU/dL Ur Leukocyte Esterase (Negative) Urine RBC (0-2) HPF Urine WBC (0-5) HPF Ur Epithelial Cells (Negative) HPF Urine Crystals (Negative) HPF Urine Bacteria (Negative) HPF Urine Casts (Negative) LPF Urine Mucus (Negative) Urine Other (Negative) Ur Culture Indicated? Urine Glucose (Negative) mg/dL Stool Calprotectin mcg/g Vancomycin Trough (10.0-20.0) ug/mL Urine Opiates Screen (Negative) Urine Methadone Screen (Negative) Ur Barbiturates Screen (Negative) Ur Tricyclics Screen (Negative) Ur Amphetamines Screen (Negative) U Benzodiazepines Scrn (Negative) Urine Cocaine Screen (Negative) Ur THC Screen (Negative) IgG (610-1,616) mg/dL IgG Total (767 - 1590) mg/dL IgG1 (341 - 894) mg/dL IgG2 (171 - 632) mg/dL IgG3 (18.4-106.0) mg/dL IgG4 (2.4-121.0) mg/dL IgA (85-499) mg/dL IgM (35-242) mg/dL IgE (<158) IU/mL NINI Titer NINI Titer 2 NINI Titer 3 NINI Interpretation (Negative) ANCA Immunofluorescen (Negative) ANCA Titer ANCA Pattern Thyroperoxidase Ab (<=60) IU/mL <28 Thyroglobulin Antibody (<=60) IU/mL <15 Blastomyces Ag Result Blastomyces Ag Comment ng/mL COVID-19 Source SARS-CoV-2 (PCR) Hep Bs Antigen (Negative) Hep Bs Antibody (See Note) Hep Bs Antibody, Quant (See Note) mIU/mL Hep B Core Total Ab (Negative) Hepatitis C Antibody (Negative) HIV 1&2 Ag/Ab, 4th Gen (Negative) Urine Legionella Ag (Negative) Ur Strep pneumoniae Ag (Negative) B-(1,3)-D-Glucan Quant (<60 pg/mL) pg/mL B-(1,3)-D-Glucan Qual (Negative) Add-On Test Request Patient ABO/Rh Antibody Screen Range/Units 11/14/21 11/15/21 11/15/21 10:43 06:42 06:42 WBC (4.4-10.8) 10^3/uL 11.74 H RBC (3.93-5.22) 10^6/uL 3.66 L Hgb (11.2-15.7) g/dL 9.5 L Hct (36.0-46.0) % 31.9 L MCV (80-95) fL 87.2 MCH (27.0-33.0) pg 26.0 L MCHC (32.0-36.0) % 29.8 L RDW (11.7-14.6) % 16.7 H Plt Count (130-400) 10^3/uL 399 MPV (8.0-11.0) fL 9.3 Immature Gran % 0.3 Neutrophils % 81.4 Band Neutrophils % Lymphocytes % 12.1 Monocytes % 4.6 Eosinophils % 1.3 Basophils % 0.3 Nucleated RBC % % 0 Absolute Neutrophils (1.2-6.7) 10^3/uL 9.56 H Absolute Lymphocytes (1.2-3.4) 10^3/uL 1.42 Absolute Monocytes (0.1-0.8) 10^3/uL 0.54 Absolute Eosinophils (0.0-0.7) 10^3/uL 0.15 Absolute Basophils (0.0-0.2) 10^3/uL 0.04 RBC Morphology ESR (0-20) mm/hr D-Dimer (<500) ng/mlFEU VBG Lactate (0.6-1.4) mmol/L Sodium (136-145) mmol/L 141 Potassium (3.5-5.1) mmol/L 3.4 L Chloride (98-107) mmol/L 110 H Carbon Dioxide (21.0-32.0) mmol/L 24.4 Anion Gap (3-11) mmol/L 6.6 BUN (7-18) mg/dL 11 Creatinine (0.55-1.02) mg/dL 0.4 L Estimated GFR/1.73 m2 (mL/min/1.73m2) >= 60.00 Glucose (74-106) mg/dL 98 Hemoglobin A1c (<5.7) % Calcium (8.5-10.1) mg/dL 8.5 Phosphorus (2.6-4.7) mg/dL Magnesium (1.8-2.4) mg/dL 1.6 L Total Bilirubin (0.2-1.0) mg/dL GGT (5-55) U/L AST (15-37) U/L ALT (14-59) U/L Alkaline Phosphatase (46-116) U/L C-Reactive Protein (0.0-0.3) mg/dL 11.77 H Total Protein (6.4-8.2) g/dL Albumin (3.4-5.0) g/dL Prealbumin (20-40) mg/dL Wlkpa-4-Gbvrbwtkvwj (90-200) mg/dL Vitamin B12 (193-986) pg/mL 25-OH Vitamin D Total (30-100) ng/mL Folate (8.6-20.0) ng/mL Procalcitonin ng/mL TSH (0.36-3.74) uIU/mL Free T4 (0.76-1.46) ng/dL Total T3 (97-169) ng/dL Thyroid Stim Immunoglob (<=1.3) TSI index Urine Color (Yellow) Urine Clarity (Clear) Urine pH (5-8) Ur Specific Strawberry (1.005-1.025) Urine Protein (Negative) mg/dL Urine Ketones (Negative) mg/dL Urine Blood (Negative) Urine Nitrite (Negative) Urine Bilirubin (Negative) Urine Urobilinogen (Up TO 0.2) EU/dL Ur Leukocyte Esterase (Negative) Urine RBC (0-2) HPF Urine WBC (0-5) HPF Ur Epithelial Cells (Negative) HPF Urine Crystals (Negative) HPF Urine Bacteria (Negative) HPF Urine Casts (Negative) LPF Urine Mucus (Negative) Urine Other (Negative) Ur Culture Indicated? Urine Glucose (Negative) mg/dL Stool Calprotectin mcg/g Vancomycin Trough (10.0-20.0) ug/mL 13.0 Urine Opiates Screen (Negative) Urine Methadone Screen (Negative) Ur Barbiturates Screen (Negative) Ur Tricyclics Screen (Negative) Ur Amphetamines Screen (Negative) U Benzodiazepines Scrn (Negative) Urine Cocaine Screen (Negative) Ur THC Screen (Negative) IgG (610-1,616) mg/dL IgG Total (767 - 1590) mg/dL IgG1 (341 - 894) mg/dL IgG2 (171 - 632) mg/dL IgG3 (18.4-106.0) mg/dL IgG4 (2.4-121.0) mg/dL IgA (85-499) mg/dL IgM (35-242) mg/dL IgE (<158) IU/mL NINI Titer NINI Titer 2 NINI Titer 3 NINI Interpretation (Negative) ANCA Immunofluorescen (Negative) ANCA Titer ANCA Pattern Thyroperoxidase Ab (<=60) IU/mL Thyroglobulin Antibody (<=60) IU/mL Blastomyces Ag Result Blastomyces Ag Comment ng/mL COVID-19 Source SARS-CoV-2 (PCR) Hep Bs Antigen (Negative) Hep Bs Antibody (See Note) Hep Bs Antibody, Quant (See Note) mIU/mL Hep B Core Total Ab (Negative) Hepatitis C Antibody (Negative) HIV 1&2 Ag/Ab, 4th Gen (Negative) Urine Legionella Ag (Negative) Ur Strep pneumoniae Ag (Negative) B-(1,3)-D-Glucan Quant (<60 pg/mL) pg/mL B-(1,3)-D-Glucan Qual (Negative) Add-On Test Request Patient ABO/Rh Antibody Screen Range/Units 11/15/21 11/15/21 11/15/21 06:42 06:42 13:52 WBC (4.4-10.8) 10^3/uL RBC (3.93-5.22) 10^6/uL Hgb (11.2-15.7) g/dL Hct (36.0-46.0) % MCV (80-95) fL MCH (27.0-33.0) pg MCHC (32.0-36.0) % RDW (11.7-14.6) % Plt Count (130-400) 10^3/uL MPV (8.0-11.0) fL Immature Gran % Neutrophils % Band Neutrophils % Lymphocytes % Monocytes % Eosinophils % Basophils % Nucleated RBC % % Absolute Neutrophils (1.2-6.7) 10^3/uL Absolute Lymphocytes (1.2-3.4) 10^3/uL Absolute Monocytes (0.1-0.8) 10^3/uL Absolute Eosinophils (0.0-0.7) 10^3/uL Absolute Basophils (0.0-0.2) 10^3/uL RBC Morphology ESR (0-20) mm/hr D-Dimer (<500) ng/mlFEU VBG Lactate (0.6-1.4) mmol/L Sodium (136-145) mmol/L Potassium (3.5-5.1) mmol/L Chloride (98-107) mmol/L Carbon Dioxide (21.0-32.0) mmol/L Anion Gap (3-11) mmol/L BUN (7-18) mg/dL Creatinine (0.55-1.02) mg/dL Estimated GFR/1.73 m2 (mL/min/1.73m2) Glucose (74-106) mg/dL Hemoglobin A1c (<5.7) % Calcium (8.5-10.1) mg/dL Phosphorus (2.6-4.7) mg/dL Magnesium (1.8-2.4) mg/dL Total Bilirubin (0.2-1.0) mg/dL GGT (5-55) U/L AST (15-37) U/L ALT (14-59) U/L Alkaline Phosphatase (46-116) U/L C-Reactive Protein (0.0-0.3) mg/dL Total Protein (6.4-8.2) g/dL Albumin (3.4-5.0) g/dL Prealbumin (20-40) mg/dL Rffil-0-Dlctxsidkui (90-200) mg/dL Vitamin B12 (193-986) pg/mL 25-OH Vitamin D Total (30-100) ng/mL Folate (8.6-20.0) ng/mL Procalcitonin ng/mL TSH (0.36-3.74) uIU/mL Free T4 (0.76-1.46) ng/dL Total T3 (97-169) ng/dL Thyroid Stim Immunoglob (<=1.3) TSI index <1.0 Urine Color (Yellow) Urine Clarity (Clear) Urine pH (5-8) Ur Specific Strawberry (1.005-1.025) Urine Protein (Negative) mg/dL Urine Ketones (Negative) mg/dL Urine Blood (Negative) Urine Nitrite (Negative) Urine Bilirubin (Negative) Urine Urobilinogen (Up TO 0.2) EU/dL Ur Leukocyte Esterase (Negative) Urine RBC (0-2) HPF Urine WBC (0-5) HPF Ur Epithelial Cells (Negative) HPF Urine Crystals (Negative) HPF Urine Bacteria (Negative) HPF Urine Casts (Negative) LPF Urine Mucus (Negative) Urine Other (Negative) Ur Culture Indicated? Urine Glucose (Negative) mg/dL Stool Calprotectin mcg/g 352 H Vancomycin Trough (10.0-20.0) ug/mL Urine Opiates Screen (Negative) Urine Methadone Screen (Negative) Ur Barbiturates Screen (Negative) Ur Tricyclics Screen (Negative) Ur Amphetamines Screen (Negative) U Benzodiazepines Scrn (Negative) Urine Cocaine Screen (Negative) Ur THC Screen (Negative) IgG (610-1,616) mg/dL IgG Total (767 - 1590) mg/dL IgG1 (341 - 894) mg/dL IgG2 (171 - 632) mg/dL IgG3 (18.4-106.0) mg/dL IgG4 (2.4-121.0) mg/dL IgA (85-499) mg/dL IgM (35-242) mg/dL IgE (<158) IU/mL NINI Titer NINI Titer 2 NINI Titer 3 NINI Interpretation (Negative) ANCA Immunofluorescen (Negative) ANCA Titer ANCA Pattern Thyroperoxidase Ab (<=60) IU/mL Thyroglobulin Antibody (<=60) IU/mL Blastomyces Ag Result Blastomyces Ag Comment ng/mL COVID-19 Source SARS-CoV-2 (PCR) Hep Bs Antigen (Negative) Hep Bs Antibody (See Note) Hep Bs Antibody, Quant (See Note) mIU/mL Hep B Core Total Ab (Negative) Hepatitis C Antibody (Negative) HIV 1&2 Ag/Ab, 4th Gen (Negative) Urine Legionella Ag (Negative) Ur Strep pneumoniae Ag (Negative) B-(1,3)-D-Glucan Quant (<60 pg/mL) pg/mL B-(1,3)-D-Glucan Qual (Negative) Add-On Test Request DONE Patient ABO/Rh Antibody Screen Range/Units 11/15/21 11/16/21 11/16/21 16:00 06:32 06:32 WBC (4.4-10.8) 10^3/uL 9.52 RBC (3.93-5.22) 10^6/uL 3.51 L Hgb (11.2-15.7) g/dL 9.2 L Hct (36.0-46.0) % 30.1 L MCV (80-95) fL 85.8 MCH (27.0-33.0) pg 26.2 L MCHC (32.0-36.0) % 30.6 L RDW (11.7-14.6) % 16.7 H Plt Count (130-400) 10^3/uL 394 MPV (8.0-11.0) fL 9.4 Immature Gran % 0.3 Neutrophils % 73.4 Band Neutrophils % Lymphocytes % 16.1 Monocytes % 5.6 Eosinophils % 4.3 Basophils % 0.3 Nucleated RBC % % 0 Absolute Neutrophils (1.2-6.7) 10^3/uL 6.99 H Absolute Lymphocytes (1.2-3.4) 10^3/uL 1.53 Absolute Monocytes (0.1-0.8) 10^3/uL 0.53 Absolute Eosinophils (0.0-0.7) 10^3/uL 0.41 Absolute Basophils (0.0-0.2) 10^3/uL 0.03 RBC Morphology ESR (0-20) mm/hr D-Dimer (<500) ng/mlFEU VBG Lactate (0.6-1.4) mmol/L Sodium (136-145) mmol/L 142 Potassium (3.5-5.1) mmol/L 3.6 Chloride (98-107) mmol/L 109 H Carbon Dioxide (21.0-32.0) mmol/L 26.7 Anion Gap (3-11) mmol/L 6.3 BUN (7-18) mg/dL 9 Creatinine (0.55-1.02) mg/dL 0.4 L Estimated GFR/1.73 m2 (mL/min/1.73m2) >= 60.00 Glucose (74-106) mg/dL 87 Hemoglobin A1c (<5.7) % Calcium (8.5-10.1) mg/dL 8.6 Phosphorus (2.6-4.7) mg/dL Magnesium (1.8-2.4) mg/dL 1.6 L Total Bilirubin (0.2-1.0) mg/dL GGT (5-55) U/L AST (15-37) U/L ALT (14-59) U/L Alkaline Phosphatase (46-116) U/L C-Reactive Protein (0.0-0.3) mg/dL 10.44 H Total Protein (6.4-8.2) g/dL Albumin (3.4-5.0) g/dL Prealbumin (20-40) mg/dL Jrnge-0-Gzoefoxkocp (90-200) mg/dL Vitamin B12 (193-986) pg/mL 25-OH Vitamin D Total (30-100) ng/mL Folate (8.6-20.0) ng/mL Procalcitonin ng/mL TSH (0.36-3.74) uIU/mL Free T4 (0.76-1.46) ng/dL Total T3 (97-169) ng/dL Thyroid Stim Immunoglob (<=1.3) TSI index Urine Color (Yellow) Urine Clarity (Clear) Urine pH (5-8) Ur Specific Strawberry (1.005-1.025) Urine Protein (Negative) mg/dL Urine Ketones (Negative) mg/dL Urine Blood (Negative) Urine Nitrite (Negative) Urine Bilirubin (Negative) Urine Urobilinogen (Up TO 0.2) EU/dL Ur Leukocyte Esterase (Negative) Urine RBC (0-2) HPF Urine WBC (0-5) HPF Ur Epithelial Cells (Negative) HPF Urine Crystals (Negative) HPF Urine Bacteria (Negative) HPF Urine Casts (Negative) LPF Urine Mucus (Negative) Urine Other (Negative) Ur Culture Indicated? Urine Glucose (Negative) mg/dL Stool Calprotectin mcg/g Vancomycin Trough (10.0-20.0) ug/mL Cancelled Urine Opiates Screen (Negative) Urine Methadone Screen (Negative) Ur Barbiturates Screen (Negative) Ur Tricyclics Screen (Negative) Ur Amphetamines Screen (Negative) U Benzodiazepines Scrn (Negative) Urine Cocaine Screen (Negative) Ur THC Screen (Negative) IgG (610-1,616) mg/dL IgG Total (767 - 1590) mg/dL IgG1 (341 - 894) mg/dL IgG2 (171 - 632) mg/dL IgG3 (18.4-106.0) mg/dL IgG4 (2.4-121.0) mg/dL IgA (85-499) mg/dL IgM (35-242) mg/dL IgE (<158) IU/mL NINI Titer NINI Titer 2 NINI Titer 3 NINI Interpretation (Negative) ANCA Immunofluorescen (Negative) ANCA Titer ANCA Pattern Thyroperoxidase Ab (<=60) IU/mL Thyroglobulin Antibody (<=60) IU/mL Blastomyces Ag Result Blastomyces Ag Comment ng/mL COVID-19 Source SARS-CoV-2 (PCR) Hep Bs Antigen (Negative) Hep Bs Antibody (See Note) Hep Bs Antibody, Quant (See Note) mIU/mL Hep B Core Total Ab (Negative) Hepatitis C Antibody (Negative) HIV 1&2 Ag/Ab, 4th Gen (Negative) Urine Legionella Ag (Negative) Ur Strep pneumoniae Ag (Negative) B-(1,3)-D-Glucan Quant (<60 pg/mL) pg/mL B-(1,3)-D-Glucan Qual (Negative) Add-On Test Request Patient ABO/Rh Antibody Screen Range/Units 11/17/21 11/17/21 11/17/21 06:02 06:02 06:02 WBC (4.4-10.8) 10^3/uL 8.09 RBC (3.93-5.22) 10^6/uL 3.64 L Hgb (11.2-15.7) g/dL 9.5 L Hct (36.0-46.0) % 30.9 L MCV (80-95) fL 84.9 MCH (27.0-33.0) pg 26.1 L MCHC (32.0-36.0) % 30.7 L RDW (11.7-14.6) % 16.8 H Plt Count (130-400) 10^3/uL 395 MPV (8.0-11.0) fL 9.1 Immature Gran % 0.1 Neutrophils % 70.2 Band Neutrophils % Lymphocytes % 18.5 Monocytes % 5.8 Eosinophils % 5.3 Basophils % 0.1 Nucleated RBC % % 0 Absolute Neutrophils (1.2-6.7) 10^3/uL 5.67 Absolute Lymphocytes (1.2-3.4) 10^3/uL 1.50 Absolute Monocytes (0.1-0.8) 10^3/uL 0.47 Absolute Eosinophils (0.0-0.7) 10^3/uL 0.43 Absolute Basophils (0.0-0.2) 10^3/uL 0.01 RBC Morphology ESR (0-20) mm/hr D-Dimer (<500) ng/mlFEU VBG Lactate (0.6-1.4) mmol/L Sodium (136-145) mmol/L Potassium (3.5-5.1) mmol/L Chloride (98-107) mmol/L Carbon Dioxide (21.0-32.0) mmol/L Anion Gap (3-11) mmol/L BUN (7-18) mg/dL Creatinine (0.55-1.02) mg/dL Estimated GFR/1.73 m2 (mL/min/1.73m2) Glucose (74-106) mg/dL Hemoglobin A1c (<5.7) % Calcium (8.5-10.1) mg/dL Phosphorus (2.6-4.7) mg/dL Magnesium (1.8-2.4) mg/dL 2.0 Total Bilirubin (0.2-1.0) mg/dL GGT (5-55) U/L AST (15-37) U/L ALT (14-59) U/L Alkaline Phosphatase (46-116) U/L C-Reactive Protein (0.0-0.3) mg/dL 8.33 H Total Protein (6.4-8.2) g/dL Albumin (3.4-5.0) g/dL Prealbumin (20-40) mg/dL 7 L Rrvip-6-Zfzevsuknbb (90-200) mg/dL Vitamin B12 (193-986) pg/mL 25-OH Vitamin D Total (30-100) ng/mL Folate (8.6-20.0) ng/mL Procalcitonin ng/mL TSH (0.36-3.74) uIU/mL Free T4 (0.76-1.46) ng/dL Total T3 (97-169) ng/dL Thyroid Stim Immunoglob (<=1.3) TSI index Urine Color (Yellow) Urine Clarity (Clear) Urine pH (5-8) Ur Specific Strawberry (1.005-1.025) Urine Protein (Negative) mg/dL Urine Ketones (Negative) mg/dL Urine Blood (Negative) Urine Nitrite (Negative) Urine Bilirubin (Negative) Urine Urobilinogen (Up TO 0.2) EU/dL Ur Leukocyte Esterase (Negative) Urine RBC (0-2) HPF Urine WBC (0-5) HPF Ur Epithelial Cells (Negative) HPF Urine Crystals (Negative) HPF Urine Bacteria (Negative) HPF Urine Casts (Negative) LPF Urine Mucus (Negative) Urine Other (Negative) Ur Culture Indicated? Urine Glucose (Negative) mg/dL Stool Calprotectin mcg/g Vancomycin Trough (10.0-20.0) ug/mL Urine Opiates Screen (Negative) Urine Methadone Screen (Negative) Ur Barbiturates Screen (Negative) Ur Tricyclics Screen (Negative) Ur Amphetamines Screen (Negative) U Benzodiazepines Scrn (Negative) Urine Cocaine Screen (Negative) Ur THC Screen (Negative) IgG (610-1,616) mg/dL IgG Total (767 - 1590) mg/dL IgG1 (341 - 894) mg/dL IgG2 (171 - 632) mg/dL IgG3 (18.4-106.0) mg/dL IgG4 (2.4-121.0) mg/dL IgA (85-499) mg/dL IgM (35-242) mg/dL IgE (<158) IU/mL NINI Titer NINI Titer 2 NINI Titer 3 NINI Interpretation (Negative) ANCA Immunofluorescen (Negative) ANCA Titer ANCA Pattern Thyroperoxidase Ab (<=60) IU/mL Thyroglobulin Antibody (<=60) IU/mL Blastomyces Ag Result Blastomyces Ag Comment ng/mL COVID-19 Source SARS-CoV-2 (PCR) Hep Bs Antigen (Negative) Hep Bs Antibody (See Note) Hep Bs Antibody, Quant (See Note) mIU/mL Hep B Core Total Ab (Negative) Hepatitis C Antibody (Negative) HIV 1&2 Ag/Ab, 4th Gen (Negative) Urine Legionella Ag (Negative) Ur Strep pneumoniae Ag (Negative) B-(1,3)-D-Glucan Quant (<60 pg/mL) pg/mL B-(1,3)-D-Glucan Qual (Negative) Add-On Test Request Patient ABO/Rh Antibody Screen Range/Units 11/17/21 11/19/21 11/19/21 06:02 06:30 06:30 WBC (4.4-10.8) 10^3/uL 10.95 H RBC (3.93-5.22) 10^6/uL 3.66 L Hgb (11.2-15.7) g/dL 9.6 L Hct (36.0-46.0) % 30.9 L MCV (80-95) fL 84.4 MCH (27.0-33.0) pg 26.2 L MCHC (32.0-36.0) % 31.1 L RDW (11.7-14.6) % 16.7 H Plt Count (130-400) 10^3/uL 529 H MPV (8.0-11.0) fL 9.2 Immature Gran % 0.3 Neutrophils % 67.3 Band Neutrophils % Lymphocytes % 20.9 Monocytes % 5.1 Eosinophils % 6.1 Basophils % 0.3 Nucleated RBC % % 0 Absolute Neutrophils (1.2-6.7) 10^3/uL 7.37 H Absolute Lymphocytes (1.2-3.4) 10^3/uL 2.29 Absolute Monocytes (0.1-0.8) 10^3/uL 0.56 Absolute Eosinophils (0.0-0.7) 10^3/uL 0.67 Absolute Basophils (0.0-0.2) 10^3/uL 0.03 RBC Morphology ESR (0-20) mm/hr D-Dimer (<500) ng/mlFEU VBG Lactate (0.6-1.4) mmol/L Sodium (136-145) mmol/L 140 139 Potassium (3.5-5.1) mmol/L 4.1 4.2 Chloride (98-107) mmol/L 107 104 Carbon Dioxide (21.0-32.0) mmol/L 28.4 29.8 Anion Gap (3-11) mmol/L 4.6 5.2 BUN (7-18) mg/dL 11 22 H D Creatinine (0.55-1.02) mg/dL 0.5 L 0.5 L Estimated GFR/1.73 m2 (mL/min/1.73m2) >= 60.00 >= 60.00 Glucose (74-106) mg/dL 81 88 Hemoglobin A1c (<5.7) % Calcium (8.5-10.1) mg/dL 8.7 8.9 Phosphorus (2.6-4.7) mg/dL Magnesium (1.8-2.4) mg/dL Total Bilirubin (0.2-1.0) mg/dL 0.1 L GGT (5-55) U/L AST (15-37) U/L 21 ALT (14-59) U/L 16 Alkaline Phosphatase (46-116) U/L 107 C-Reactive Protein (0.0-0.3) mg/dL 5.05 H Total Protein (6.4-8.2) g/dL 7.1 Albumin (3.4-5.0) g/dL 1.8 L Prealbumin (20-40) mg/dL Uvdlu-0-Ewzfgwjybno (90-200) mg/dL Vitamin B12 (193-986) pg/mL 25-OH Vitamin D Total (30-100) ng/mL Folate (8.6-20.0) ng/mL Procalcitonin ng/mL TSH (0.36-3.74) uIU/mL Free T4 (0.76-1.46) ng/dL Total T3 (97-169) ng/dL Thyroid Stim Immunoglob (<=1.3) TSI index Urine Color (Yellow) Urine Clarity (Clear) Urine pH (5-8) Ur Specific Strawberry (1.005-1.025) Urine Protein (Negative) mg/dL Urine Ketones (Negative) mg/dL Urine Blood (Negative) Urine Nitrite (Negative) Urine Bilirubin (Negative) Urine Urobilinogen (Up TO 0.2) EU/dL Ur Leukocyte Esterase (Negative) Urine RBC (0-2) HPF Urine WBC (0-5) HPF Ur Epithelial Cells (Negative) HPF Urine Crystals (Negative) HPF Urine Bacteria (Negative) HPF Urine Casts (Negative) LPF Urine Mucus (Negative) Urine Other (Negative) Ur Culture Indicated? Urine Glucose (Negative) mg/dL Stool Calprotectin mcg/g Vancomycin Trough (10.0-20.0) ug/mL Urine Opiates Screen (Negative) Urine Methadone Screen (Negative) Ur Barbiturates Screen (Negative) Ur Tricyclics Screen (Negative) Ur Amphetamines Screen (Negative) U Benzodiazepines Scrn (Negative) Urine Cocaine Screen (Negative) Ur THC Screen (Negative) IgG (610-1,616) mg/dL IgG Total (767 - 1590) mg/dL IgG1 (341 - 894) mg/dL IgG2 (171 - 632) mg/dL IgG3 (18.4-106.0) mg/dL IgG4 (2.4-121.0) mg/dL IgA (85-499) mg/dL IgM (35-242) mg/dL IgE (<158) IU/mL NINI Titer NINI Titer 2 NINI Titer 3 NINI Interpretation (Negative) ANCA Immunofluorescen (Negative) ANCA Titer ANCA Pattern Thyroperoxidase Ab (<=60) IU/mL Thyroglobulin Antibody (<=60) IU/mL Blastomyces Ag Result Blastomyces Ag Comment ng/mL COVID-19 Source SARS-CoV-2 (PCR) Hep Bs Antigen (Negative) Hep Bs Antibody (See Note) Hep Bs Antibody, Quant (See Note) mIU/mL Hep B Core Total Ab (Negative) Hepatitis C Antibody (Negative) HIV 1&2 Ag/Ab, 4th Gen (Negative) Urine Legionella Ag (Negative) Ur Strep pneumoniae Ag (Negative) B-(1,3)-D-Glucan Quant (<60 pg/mL) pg/mL B-(1,3)-D-Glucan Qual (Negative) Add-On Test Request Patient ABO/Rh Antibody Screen Range/Units 11/22/21 11/22/21 11/22/21 11:20 19:00 Unknown WBC (4.4-10.8) 10^3/uL 18.78 H RBC (3.93-5.22) 10^6/uL 3.36 L Hgb (11.2-15.7) g/dL 8.8 L Hct (36.0-46.0) % 29.8 L MCV (80-95) fL 88.7 MCH (27.0-33.0) pg 26.2 L MCHC (32.0-36.0) % 29.5 L RDW (11.7-14.6) % 17.2 H Plt Count (130-400) 10^3/uL 650 H MPV (8.0-11.0) fL 9.2 Immature Gran % Neutrophils % Band Neutrophils % Lymphocytes % Monocytes % Eosinophils % Basophils % Nucleated RBC % % Absolute Neutrophils (1.2-6.7) 10^3/uL Absolute Lymphocytes (1.2-3.4) 10^3/uL Absolute Monocytes (0.1-0.8) 10^3/uL Absolute Eosinophils (0.0-0.7) 10^3/uL Absolute Basophils (0.0-0.2) 10^3/uL RBC Morphology ESR (0-20) mm/hr D-Dimer (<500) ng/mlFEU VBG Lactate (0.6-1.4) mmol/L Sodium (136-145) mmol/L Potassium (3.5-5.1) mmol/L Chloride (98-107) mmol/L Carbon Dioxide (21.0-32.0) mmol/L Anion Gap (3-11) mmol/L BUN (7-18) mg/dL Creatinine (0.55-1.02) mg/dL Estimated GFR/1.73 m2 (mL/min/1.73m2) Glucose (74-106) mg/dL Hemoglobin A1c (<5.7) % Calcium (8.5-10.1) mg/dL Phosphorus (2.6-4.7) mg/dL Magnesium (1.8-2.4) mg/dL Total Bilirubin (0.2-1.0) mg/dL GGT (5-55) U/L AST (15-37) U/L ALT (14-59) U/L Alkaline Phosphatase (46-116) U/L C-Reactive Protein (0.0-0.3) mg/dL Total Protein (6.4-8.2) g/dL Albumin (3.4-5.0) g/dL Prealbumin (20-40) mg/dL Uneaj-5-Jfmbwjlxhio (90-200) mg/dL Vitamin B12 (193-986) pg/mL 25-OH Vitamin D Total (30-100) ng/mL Folate (8.6-20.0) ng/mL Procalcitonin ng/mL TSH (0.36-3.74) uIU/mL Free T4 (0.76-1.46) ng/dL Total T3 (97-169) ng/dL Thyroid Stim Immunoglob (<=1.3) TSI index Urine Color (Yellow) Yellow Urine Clarity (Clear) Sl Cloudy Urine pH (5-8) 7.0 Ur Specific Strawberry (1.005-1.025) 1.025 Urine Protein (Negative) mg/dL Trace H Urine Ketones (Negative) mg/dL Negative Urine Blood (Negative) Large H Urine Nitrite (Negative) Negative Urine Bilirubin (Negative) Negative Urine Urobilinogen (Up TO 0.2) EU/dL 0.2 Ur Leukocyte Esterase (Negative) Negative Urine RBC (0-2) HPF >50 H Urine WBC (0-5) HPF 5-10 Ur Epithelial Cells (Negative) HPF Negative Urine Crystals (Negative) HPF Negative Urine Bacteria (Negative) HPF Negative Urine Casts (Negative) LPF Negative Urine Mucus (Negative) Negative Urine Other (Negative) Negative Ur Culture Indicated? Yes Urine Glucose (Negative) mg/dL Negative Stool Calprotectin mcg/g Vancomycin Trough (10.0-20.0) ug/mL Urine Opiates Screen (Negative) Urine Methadone Screen (Negative) Ur Barbiturates Screen (Negative) Ur Tricyclics Screen (Negative) Ur Amphetamines Screen (Negative) U Benzodiazepines Scrn (Negative) Urine Cocaine Screen (Negative) Ur THC Screen (Negative) IgG (610-1,616) mg/dL IgG Total (767 - 1590) mg/dL IgG1 (341 - 894) mg/dL IgG2 (171 - 632) mg/dL IgG3 (18.4-106.0) mg/dL IgG4 (2.4-121.0) mg/dL IgA (85-499) mg/dL IgM (35-242) mg/dL IgE (<158) IU/mL NINI Titer NINI Titer 2 NINI Titer 3 NINI Interpretation (Negative) ANCA Immunofluorescen (Negative) ANCA Titer ANCA Pattern Thyroperoxidase Ab (<=60) IU/mL Thyroglobulin Antibody (<=60) IU/mL Blastomyces Ag Result Blastomyces Ag Comment ng/mL COVID-19 Source SARS-CoV-2 (PCR) Hep Bs Antigen (Negative) Hep Bs Antibody (See Note) Hep Bs Antibody, Quant (See Note) mIU/mL Hep B Core Total Ab (Negative) Hepatitis C Antibody (Negative) HIV 1&2 Ag/Ab, 4th Gen (Negative) Urine Legionella Ag (Negative) Ur Strep pneumoniae Ag (Negative) B-(1,3)-D-Glucan Quant (<60 pg/mL) pg/mL B-(1,3)-D-Glucan Qual (Negative) Add-On Test Request TNP Patient ABO/Rh Antibody Screen Range/Units 11/23/21 11/23/21 11/23/21 06:45 06:45 06:45 WBC (4.4-10.8) 10^3/uL RBC (3.93-5.22) 10^6/uL Hgb (11.2-15.7) g/dL Hct (36.0-46.0) % MCV (80-95) fL MCH (27.0-33.0) pg MCHC (32.0-36.0) % RDW (11.7-14.6) % Plt Count (130-400) 10^3/uL MPV (8.0-11.0) fL Immature Gran % Neutrophils % Band Neutrophils % Lymphocytes % Monocytes % Eosinophils % Basophils % Nucleated RBC % % Absolute Neutrophils (1.2-6.7) 10^3/uL Absolute Lymphocytes (1.2-3.4) 10^3/uL Absolute Monocytes (0.1-0.8) 10^3/uL Absolute Eosinophils (0.0-0.7) 10^3/uL Absolute Basophils (0.0-0.2) 10^3/uL RBC Morphology ESR (0-20) mm/hr D-Dimer (<500) ng/mlFEU 599 H VBG Lactate (0.6-1.4) mmol/L Sodium (136-145) mmol/L Potassium (3.5-5.1) mmol/L Chloride (98-107) mmol/L Carbon Dioxide (21.0-32.0) mmol/L Anion Gap (3-11) mmol/L BUN (7-18) mg/dL Creatinine (0.55-1.02) mg/dL Estimated GFR/1.73 m2 (mL/min/1.73m2) Glucose (74-106) mg/dL Hemoglobin A1c (<5.7) % Calcium (8.5-10.1) mg/dL Phosphorus (2.6-4.7) mg/dL Magnesium (1.8-2.4) mg/dL Total Bilirubin (0.2-1.0) mg/dL GGT (5-55) U/L AST (15-37) U/L ALT (14-59) U/L Alkaline Phosphatase (46-116) U/L C-Reactive Protein (0.0-0.3) mg/dL Total Protein (6.4-8.2) g/dL Albumin (3.4-5.0) g/dL 1.7 L Prealbumin (20-40) mg/dL Owbgu-4-Guyvtmgyqon (90-200) mg/dL Vitamin B12 (193-986) pg/mL 25-OH Vitamin D Total (30-100) ng/mL Folate (8.6-20.0) ng/mL Procalcitonin ng/mL TSH (0.36-3.74) uIU/mL < 0.01 L Free T4 (0.76-1.46) ng/dL 0.97 Total T3 (97-169) ng/dL Thyroid Stim Immunoglob (<=1.3) TSI index Urine Color (Yellow) Urine Clarity (Clear) Urine pH (5-8) Ur Specific Strawberry (1.005-1.025) Urine Protein (Negative) mg/dL Urine Ketones (Negative) mg/dL Urine Blood (Negative) Urine Nitrite (Negative) Urine Bilirubin (Negative) Urine Urobilinogen (Up TO 0.2) EU/dL Ur Leukocyte Esterase (Negative) Urine RBC (0-2) HPF Urine WBC (0-5) HPF Ur Epithelial Cells (Negative) HPF Urine Crystals (Negative) HPF Urine Bacteria (Negative) HPF Urine Casts (Negative) LPF Urine Mucus (Negative) Urine Other (Negative) Ur Culture Indicated? Urine Glucose (Negative) mg/dL Stool Calprotectin mcg/g Vancomycin Trough (10.0-20.0) ug/mL Urine Opiates Screen (Negative) Urine Methadone Screen (Negative) Ur Barbiturates Screen (Negative) Ur Tricyclics Screen (Negative) Ur Amphetamines Screen (Negative) U Benzodiazepines Scrn (Negative) Urine Cocaine Screen (Negative) Ur THC Screen (Negative) IgG (610-1,616) mg/dL IgG Total (767 - 1590) mg/dL IgG1 (341 - 894) mg/dL IgG2 (171 - 632) mg/dL IgG3 (18.4-106.0) mg/dL IgG4 (2.4-121.0) mg/dL IgA (85-499) mg/dL IgM (35-242) mg/dL IgE (<158) IU/mL NINI Titer NINI Titer 2 NINI Titer 3 NINI Interpretation (Negative) ANCA Immunofluorescen (Negative) ANCA Titer ANCA Pattern Thyroperoxidase Ab (<=60) IU/mL Thyroglobulin Antibody (<=60) IU/mL Blastomyces Ag Result Blastomyces Ag Comment ng/mL COVID-19 Source SARS-CoV-2 (PCR) Hep Bs Antigen (Negative) Hep Bs Antibody (See Note) Hep Bs Antibody, Quant (See Note) mIU/mL Hep B Core Total Ab (Negative) Hepatitis C Antibody (Negative) HIV 1&2 Ag/Ab, 4th Gen (Negative) Urine Legionella Ag (Negative) Ur Strep pneumoniae Ag (Negative) B-(1,3)-D-Glucan Quant (<60 pg/mL) pg/mL B-(1,3)-D-Glucan Qual (Negative) Add-On Test Request Patient ABO/Rh Antibody Screen Range/Units 11/23/21 11/23/21 11/23/21 06:45 06:45 06:45 WBC (4.4-10.8) 10^3/uL RBC (3.93-5.22) 10^6/uL Hgb (11.2-15.7) g/dL Hct (36.0-46.0) % MCV (80-95) fL MCH (27.0-33.0) pg MCHC (32.0-36.0) % RDW (11.7-14.6) % Plt Count (130-400) 10^3/uL MPV (8.0-11.0) fL Immature Gran % Neutrophils % Band Neutrophils % Lymphocytes % Monocytes % Eosinophils % Basophils % Nucleated RBC % % Absolute Neutrophils (1.2-6.7) 10^3/uL Absolute Lymphocytes (1.2-3.4) 10^3/uL Absolute Monocytes (0.1-0.8) 10^3/uL Absolute Eosinophils (0.0-0.7) 10^3/uL Absolute Basophils (0.0-0.2) 10^3/uL RBC Morphology ESR (0-20) mm/hr D-Dimer (<500) ng/mlFEU VBG Lactate (0.6-1.4) mmol/L Sodium (136-145) mmol/L Potassium (3.5-5.1) mmol/L Chloride (98-107) mmol/L Carbon Dioxide (21.0-32.0) mmol/L Anion Gap (3-11) mmol/L BUN (7-18) mg/dL Creatinine (0.55-1.02) mg/dL Estimated GFR/1.73 m2 (mL/min/1.73m2) Glucose (74-106) mg/dL Hemoglobin A1c (<5.7) % Calcium (8.5-10.1) mg/dL Phosphorus (2.6-4.7) mg/dL Magnesium (1.8-2.4) mg/dL Total Bilirubin (0.2-1.0) mg/dL GGT (5-55) U/L AST (15-37) U/L ALT (14-59) U/L Alkaline Phosphatase (46-116) U/L C-Reactive Protein (0.0-0.3) mg/dL 11.42 H Total Protein (6.4-8.2) g/dL Albumin (3.4-5.0) g/dL Prealbumin (20-40) mg/dL Ovwgc-2-Tlkuqmjuwor (90-200) mg/dL Vitamin B12 (193-986) pg/mL 25-OH Vitamin D Total (30-100) ng/mL Folate (8.6-20.0) ng/mL Procalcitonin ng/mL 0.2 TSH (0.36-3.74) uIU/mL Free T4 (0.76-1.46) ng/dL Total T3 (97-169) ng/dL Thyroid Stim Immunoglob (<=1.3) TSI index Urine Color (Yellow) Urine Clarity (Clear) Urine pH (5-8) Ur Specific Strawberry (1.005-1.025) Urine Protein (Negative) mg/dL Urine Ketones (Negative) mg/dL Urine Blood (Negative) Urine Nitrite (Negative) Urine Bilirubin (Negative) Urine Urobilinogen (Up TO 0.2) EU/dL Ur Leukocyte Esterase (Negative) Urine RBC (0-2) HPF Urine WBC (0-5) HPF Ur Epithelial Cells (Negative) HPF Urine Crystals (Negative) HPF Urine Bacteria (Negative) HPF Urine Casts (Negative) LPF Urine Mucus (Negative) Urine Other (Negative) Ur Culture Indicated? Urine Glucose (Negative) mg/dL Stool Calprotectin mcg/g Vancomycin Trough (10.0-20.0) ug/mL Urine Opiates Screen (Negative) Urine Methadone Screen (Negative) Ur Barbiturates Screen (Negative) Ur Tricyclics Screen (Negative) Ur Amphetamines Screen (Negative) U Benzodiazepines Scrn (Negative) Urine Cocaine Screen (Negative) Ur THC Screen (Negative) IgG (610-1,616) mg/dL IgG Total (767 - 1590) mg/dL IgG1 (341 - 894) mg/dL IgG2 (171 - 632) mg/dL IgG3 (18.4-106.0) mg/dL IgG4 (2.4-121.0) mg/dL IgA (85-499) mg/dL IgM (35-242) mg/dL IgE (<158) IU/mL NINI Titer NINI Titer 2 NINI Titer 3 NINI Interpretation (Negative) ANCA Immunofluorescen (Negative) ANCA Titer ANCA Pattern Thyroperoxidase Ab (<=60) IU/mL Thyroglobulin Antibody (<=60) IU/mL Blastomyces Ag Result Blastomyces Ag Comment ng/mL COVID-19 Source SARS-CoV-2 (PCR) Hep Bs Antigen (Negative) Hep Bs Antibody (See Note) Hep Bs Antibody, Quant (See Note) mIU/mL Hep B Core Total Ab (Negative) Hepatitis C Antibody (Negative) HIV 1&2 Ag/Ab, 4th Gen (Negative) Urine Legionella Ag (Negative) Ur Strep pneumoniae Ag (Negative) B-(1,3)-D-Glucan Quant (<60 pg/mL) pg/mL B-(1,3)-D-Glucan Qual (Negative) Add-On Test Request Patient ABO/Rh O Negative Antibody Screen NEGATIVE Range/Units 11/24/21 11/24/21 11/26/21 08:00 08:00 06:36 WBC (4.4-10.8) 10^3/uL 9.78 RBC (3.93-5.22) 10^6/uL 3.47 L Hgb (11.2-15.7) g/dL 9.2 L Hct (36.0-46.0) % 30.5 L MCV (80-95) fL 87.9 MCH (27.0-33.0) pg 26.5 L MCHC (32.0-36.0) % 30.2 L RDW (11.7-14.6) % 18.0 H Plt Count (130-400) 10^3/uL 745 H MPV (8.0-11.0) fL 9.2 Immature Gran % 0.4 Neutrophils % 64.2 Band Neutrophils % Lymphocytes % 23.8 Monocytes % 6.1 Eosinophils % 4.9 Basophils % 0.6 Nucleated RBC % % 0 Absolute Neutrophils (1.2-6.7) 10^3/uL 6.27 Absolute Lymphocytes (1.2-3.4) 10^3/uL 2.33 Absolute Monocytes (0.1-0.8) 10^3/uL 0.60 Absolute Eosinophils (0.0-0.7) 10^3/uL 0.48 Absolute Basophils (0.0-0.2) 10^3/uL 0.06 RBC Morphology ESR (0-20) mm/hr D-Dimer (<500) ng/mlFEU VBG Lactate (0.6-1.4) mmol/L Sodium (136-145) mmol/L 141 Potassium (3.5-5.1) mmol/L 3.6 Chloride (98-107) mmol/L 105 Carbon Dioxide (21.0-32.0) mmol/L 28.7 Anion Gap (3-11) mmol/L 7.3 BUN (7-18) mg/dL 11 Creatinine (0.55-1.02) mg/dL 0.5 L Estimated GFR/1.73 m2 (mL/min/1.73m2) >= 60.00 Glucose (74-106) mg/dL 91 Hemoglobin A1c (<5.7) % Calcium (8.5-10.1) mg/dL 9.1 Phosphorus (2.6-4.7) mg/dL Magnesium (1.8-2.4) mg/dL Total Bilirubin (0.2-1.0) mg/dL 0.1 L GGT (5-55) U/L AST (15-37) U/L 17 ALT (14-59) U/L 12 L Alkaline Phosphatase (46-116) U/L 86 C-Reactive Protein (0.0-0.3) mg/dL Total Protein (6.4-8.2) g/dL 7.7 Albumin (3.4-5.0) g/dL 1.8 L Prealbumin (20-40) mg/dL Qfluv-9-Pktezoappet (90-200) mg/dL 238 H Vitamin B12 (193-986) pg/mL 25-OH Vitamin D Total (30-100) ng/mL Folate (8.6-20.0) ng/mL Procalcitonin ng/mL TSH (0.36-3.74) uIU/mL Free T4 (0.76-1.46) ng/dL Total T3 (97-169) ng/dL Thyroid Stim Immunoglob (<=1.3) TSI index Urine Color (Yellow) Urine Clarity (Clear) Urine pH (5-8) Ur Specific Strawberry (1.005-1.025) Urine Protein (Negative) mg/dL Urine Ketones (Negative) mg/dL Urine Blood (Negative) Urine Nitrite (Negative) Urine Bilirubin (Negative) Urine Urobilinogen (Up TO 0.2) EU/dL Ur Leukocyte Esterase (Negative) Urine RBC (0-2) HPF Urine WBC (0-5) HPF Ur Epithelial Cells (Negative) HPF Urine Crystals (Negative) HPF Urine Bacteria (Negative) HPF Urine Casts (Negative) LPF Urine Mucus (Negative) Urine Other (Negative) Ur Culture Indicated? Urine Glucose (Negative) mg/dL Stool Calprotectin mcg/g Vancomycin Trough (10.0-20.0) ug/mL Urine Opiates Screen (Negative) Urine Methadone Screen (Negative) Ur Barbiturates Screen (Negative) Ur Tricyclics Screen (Negative) Ur Amphetamines Screen (Negative) U Benzodiazepines Scrn (Negative) Urine Cocaine Screen (Negative) Ur THC Screen (Negative) IgG (610-1,616) mg/dL IgG Total (767 - 1590) mg/dL IgG1 (341 - 894) mg/dL IgG2 (171 - 632) mg/dL IgG3 (18.4-106.0) mg/dL IgG4 (2.4-121.0) mg/dL IgA (85-499) mg/dL IgM (35-242) mg/dL IgE (<158) IU/mL NINI Titer NINI Titer 2 NINI Titer 3 NINI Interpretation (Negative) ANCA Immunofluorescen (Negative) ANCA Titer ANCA Pattern Thyroperoxidase Ab (<=60) IU/mL Thyroglobulin Antibody (<=60) IU/mL Blastomyces Ag Result Blastomyces Ag Comment ng/mL COVID-19 Source SARS-CoV-2 (PCR) Hep Bs Antigen (Negative) Hep Bs Antibody (See Note) Hep Bs Antibody, Quant (See Note) mIU/mL Hep B Core Total Ab (Negative) Hepatitis C Antibody (Negative) HIV 1&2 Ag/Ab, 4th Gen (Negative) Urine Legionella Ag (Negative) Ur Strep pneumoniae Ag (Negative) B-(1,3)-D-Glucan Quant (<60 pg/mL) pg/mL B-(1,3)-D-Glucan Qual (Negative) Add-On Test Request Patient ABO/Rh Antibody Screen Range/Units 11/26/21 11/26/21 11/26/21 06:36 06:36 06:36 WBC (4.4-10.8) 10^3/uL RBC (3.93-5.22) 10^6/uL Hgb (11.2-15.7) g/dL Hct (36.0-46.0) % MCV (80-95) fL MCH (27.0-33.0) pg MCHC (32.0-36.0) % RDW (11.7-14.6) % Plt Count (130-400) 10^3/uL MPV (8.0-11.0) fL Immature Gran % Neutrophils % Band Neutrophils % Lymphocytes % Monocytes % Eosinophils % Basophils % Nucleated RBC % % Absolute Neutrophils (1.2-6.7) 10^3/uL Absolute Lymphocytes (1.2-3.4) 10^3/uL Absolute Monocytes (0.1-0.8) 10^3/uL Absolute Eosinophils (0.0-0.7) 10^3/uL Absolute Basophils (0.0-0.2) 10^3/uL RBC Morphology ESR (0-20) mm/hr D-Dimer (<500) ng/mlFEU VBG Lactate (0.6-1.4) mmol/L Sodium (136-145) mmol/L Potassium (3.5-5.1) mmol/L Chloride (98-107) mmol/L Carbon Dioxide (21.0-32.0) mmol/L Anion Gap (3-11) mmol/L BUN (7-18) mg/dL Creatinine (0.55-1.02) mg/dL Estimated GFR/1.73 m2 (mL/min/1.73m2) Glucose (74-106) mg/dL Hemoglobin A1c (<5.7) % Calcium (8.5-10.1) mg/dL Phosphorus (2.6-4.7) mg/dL Magnesium (1.8-2.4) mg/dL Total Bilirubin (0.2-1.0) mg/dL GGT (5-55) U/L AST (15-37) U/L ALT (14-59) U/L Alkaline Phosphatase (46-116) U/L C-Reactive Protein (0.0-0.3) mg/dL Total Protein (6.4-8.2) g/dL Albumin (3.4-5.0) g/dL Prealbumin (20-40) mg/dL Gablv-2-Cxauesyccdg (90-200) mg/dL Vitamin B12 (193-986) pg/mL 25-OH Vitamin D Total (30-100) ng/mL Folate (8.6-20.0) ng/mL Procalcitonin ng/mL TSH (0.36-3.74) uIU/mL Free T4 (0.76-1.46) ng/dL Total T3 (97-169) ng/dL Thyroid Stim Immunoglob (<=1.3) TSI index Urine Color (Yellow) Urine Clarity (Clear) Urine pH (5-8) Ur Specific Strawberry (1.005-1.025) Urine Protein (Negative) mg/dL Urine Ketones (Negative) mg/dL Urine Blood (Negative) Urine Nitrite (Negative) Urine Bilirubin (Negative) Urine Urobilinogen (Up TO 0.2) EU/dL Ur Leukocyte Esterase (Negative) Urine RBC (0-2) HPF Urine WBC (0-5) HPF Ur Epithelial Cells (Negative) HPF Urine Crystals (Negative) HPF Urine Bacteria (Negative) HPF Urine Casts (Negative) LPF Urine Mucus (Negative) Urine Other (Negative) Ur Culture Indicated? Urine Glucose (Negative) mg/dL Stool Calprotectin mcg/g Vancomycin Trough (10.0-20.0) ug/mL Urine Opiates Screen (Negative) Urine Methadone Screen (Negative) Ur Barbiturates Screen (Negative) Ur Tricyclics Screen (Negative) Ur Amphetamines Screen (Negative) U Benzodiazepines Scrn (Negative) Urine Cocaine Screen (Negative) Ur THC Screen (Negative) IgG (610-1,616) mg/dL 2652 H IgG Total (767 - 1590) mg/dL 2380 H IgG1 (341 - 894) mg/dL 1640 H IgG2 (171 - 632) mg/dL 617 IgG3 (18.4-106.0) mg/dL 189.0 H IgG4 (2.4-121.0) mg/dL 173.0 H IgA (85-499) mg/dL 539 H IgM (35-242) mg/dL 67 IgE (<158) IU/mL 81 NINI Titer 1:160 Homogeneous NINI Titer 2 Not Applicable NINI Titer 3 Not Applicable NINI Interpretation (Negative) Positive A ANCA Immunofluorescen (Negative) Negative ANCA Titer Not Applicable ANCA Pattern Not Applicable Thyroperoxidase Ab (<=60) IU/mL Thyroglobulin Antibody (<=60) IU/mL Blastomyces Ag Result Blastomyces Ag Comment ng/mL COVID-19 Source SARS-CoV-2 (PCR) Hep Bs Antigen (Negative) Hep Bs Antibody (See Note) Hep Bs Antibody, Quant (See Note) mIU/mL Hep B Core Total Ab (Negative) Hepatitis C Antibody (Negative) HIV 1&2 Ag/Ab, 4th Gen (Negative) Urine Legionella Ag (Negative) Ur Strep pneumoniae Ag (Negative) B-(1,3)-D-Glucan Quant (<60 pg/mL) pg/mL B-(1,3)-D-Glucan Qual (Negative) Add-On Test Request Patient ABO/Rh Antibody Screen Range/Units 11/26/21 11/26/21 11/26/21 06:36 07:30 07:30 WBC (4.4-10.8) 10^3/uL 9.23 RBC (3.93-5.22) 10^6/uL 3.50 L Hgb (11.2-15.7) g/dL 9.3 L Hct (36.0-46.0) % 30.6 L MCV (80-95) fL 87.4 MCH (27.0-33.0) pg 26.6 L MCHC (32.0-36.0) % 30.4 L RDW (11.7-14.6) % 18.4 H Plt Count (130-400) 10^3/uL 747 H MPV (8.0-11.0) fL 9.2 Immature Gran % 0.2 Neutrophils % 60.6 Band Neutrophils % Lymphocytes % 26.0 Monocytes % 9.2 Eosinophils % 3.0 Basophils % 1.0 Nucleated RBC % % 0 Absolute Neutrophils (1.2-6.7) 10^3/uL 5.59 Absolute Lymphocytes (1.2-3.4) 10^3/uL 2.40 Absolute Monocytes (0.1-0.8) 10^3/uL 0.85 H Absolute Eosinophils (0.0-0.7) 10^3/uL 0.28 Absolute Basophils (0.0-0.2) 10^3/uL 0.09 RBC Morphology ESR (0-20) mm/hr D-Dimer (<500) ng/mlFEU VBG Lactate (0.6-1.4) mmol/L Sodium (136-145) mmol/L 140 Potassium (3.5-5.1) mmol/L 3.8 Chloride (98-107) mmol/L 106 Carbon Dioxide (21.0-32.0) mmol/L 26.7 Anion Gap (3-11) mmol/L 7.3 BUN (7-18) mg/dL 15 Creatinine (0.55-1.02) mg/dL 0.6 Estimated GFR/1.73 m2 (mL/min/1.73m2) >= 60.00 Glucose (74-106) mg/dL 91 Hemoglobin A1c (<5.7) % Calcium (8.5-10.1) mg/dL 8.8 Phosphorus (2.6-4.7) mg/dL Magnesium (1.8-2.4) mg/dL Total Bilirubin (0.2-1.0) mg/dL 0.1 L GGT (5-55) U/L AST (15-37) U/L 19 ALT (14-59) U/L 12 L Alkaline Phosphatase (46-116) U/L 67 C-Reactive Protein (0.0-0.3) mg/dL Total Protein (6.4-8.2) g/dL 7.4 Albumin (3.4-5.0) g/dL 1.9 L Prealbumin (20-40) mg/dL Acopj-1-Esqcmsdjdqj (90-200) mg/dL Vitamin B12 (193-986) pg/mL 25-OH Vitamin D Total (30-100) ng/mL Folate (8.6-20.0) ng/mL Procalcitonin ng/mL TSH (0.36-3.74) uIU/mL Free T4 (0.76-1.46) ng/dL Total T3 (97-169) ng/dL Thyroid Stim Immunoglob (<=1.3) TSI index Urine Color (Yellow) Urine Clarity (Clear) Urine pH (5-8) Ur Specific Strawberry (1.005-1.025) Urine Protein (Negative) mg/dL Urine Ketones (Negative) mg/dL Urine Blood (Negative) Urine Nitrite (Negative) Urine Bilirubin (Negative) Urine Urobilinogen (Up TO 0.2) EU/dL Ur Leukocyte Esterase (Negative) Urine RBC (0-2) HPF Urine WBC (0-5) HPF Ur Epithelial Cells (Negative) HPF Urine Crystals (Negative) HPF Urine Bacteria (Negative) HPF Urine Casts (Negative) LPF Urine Mucus (Negative) Urine Other (Negative) Ur Culture Indicated? Urine Glucose (Negative) mg/dL Stool Calprotectin mcg/g Vancomycin Trough (10.0-20.0) ug/mL Urine Opiates Screen (Negative) Urine Methadone Screen (Negative) Ur Barbiturates Screen (Negative) Ur Tricyclics Screen (Negative) Ur Amphetamines Screen (Negative) U Benzodiazepines Scrn (Negative) Urine Cocaine Screen (Negative) Ur THC Screen (Negative) IgG (610-1,616) mg/dL IgG Total (767 - 1590) mg/dL IgG1 (341 - 894) mg/dL IgG2 (171 - 632) mg/dL IgG3 (18.4-106.0) mg/dL IgG4 (2.4-121.0) mg/dL IgA (85-499) mg/dL IgM (35-242) mg/dL IgE (<158) IU/mL NINI Titer NINI Titer 2 NINI Titer 3 NINI Interpretation (Negative) ANCA Immunofluorescen (Negative) ANCA Titer ANCA Pattern Thyroperoxidase Ab (<=60) IU/mL Thyroglobulin Antibody (<=60) IU/mL Blastomyces Ag Result Blastomyces Ag Comment ng/mL COVID-19 Source SARS-CoV-2 (PCR) Hep Bs Antigen (Negative) Hep Bs Antibody (See Note) Hep Bs Antibody, Quant (See Note) mIU/mL Hep B Core Total Ab (Negative) Hepatitis C Antibody (Negative) HIV 1&2 Ag/Ab, 4th Gen (Negative) Urine Legionella Ag (Negative) Ur Strep pneumoniae Ag (Negative) B-(1,3)-D-Glucan Quant (<60 pg/mL) pg/mL 78 A B-(1,3)-D-Glucan Qual (Negative) Indeterminate A Add-On Test Request Patient ABO/Rh Antibody Screen Range/Units 11/27/21 11/27/21 11/27/21 12:30 12:30 12:30 WBC (4.4-10.8) 10^3/uL RBC (3.93-5.22) 10^6/uL Hgb (11.2-15.7) g/dL Hct (36.0-46.0) % MCV (80-95) fL MCH (27.0-33.0) pg MCHC (32.0-36.0) % RDW (11.7-14.6) % Plt Count (130-400) 10^3/uL MPV (8.0-11.0) fL Immature Gran % Neutrophils % Band Neutrophils % Lymphocytes % Monocytes % Eosinophils % Basophils % Nucleated RBC % % Absolute Neutrophils (1.2-6.7) 10^3/uL Absolute Lymphocytes (1.2-3.4) 10^3/uL Absolute Monocytes (0.1-0.8) 10^3/uL Absolute Eosinophils (0.0-0.7) 10^3/uL Absolute Basophils (0.0-0.2) 10^3/uL RBC Morphology ESR (0-20) mm/hr D-Dimer (<500) ng/mlFEU VBG Lactate (0.6-1.4) mmol/L Sodium (136-145) mmol/L Potassium (3.5-5.1) mmol/L Chloride (98-107) mmol/L Carbon Dioxide (21.0-32.0) mmol/L Anion Gap (3-11) mmol/L BUN (7-18) mg/dL Creatinine (0.55-1.02) mg/dL Estimated GFR/1.73 m2 (mL/min/1.73m2) Glucose (74-106) mg/dL Hemoglobin A1c (<5.7) % Calcium (8.5-10.1) mg/dL Phosphorus (2.6-4.7) mg/dL Magnesium (1.8-2.4) mg/dL Total Bilirubin (0.2-1.0) mg/dL GGT (5-55) U/L AST (15-37) U/L ALT (14-59) U/L Alkaline Phosphatase (46-116) U/L C-Reactive Protein (0.0-0.3) mg/dL Total Protein (6.4-8.2) g/dL Albumin (3.4-5.0) g/dL Prealbumin (20-40) mg/dL Aojji-0-Mnouzknxoxj (90-200) mg/dL Vitamin B12 (193-986) pg/mL 25-OH Vitamin D Total (30-100) ng/mL Folate (8.6-20.0) ng/mL Procalcitonin ng/mL TSH (0.36-3.74) uIU/mL Free T4 (0.76-1.46) ng/dL Total T3 (97-169) ng/dL Thyroid Stim Immunoglob (<=1.3) TSI index Urine Color (Yellow) Urine Clarity (Clear) Urine pH (5-8) Ur Specific Strawberry (1.005-1.025) Urine Protein (Negative) mg/dL Urine Ketones (Negative) mg/dL Urine Blood (Negative) Urine Nitrite (Negative) Urine Bilirubin (Negative) Urine Urobilinogen (Up TO 0.2) EU/dL Ur Leukocyte Esterase (Negative) Urine RBC (0-2) HPF Urine WBC (0-5) HPF Ur Epithelial Cells (Negative) HPF Urine Crystals (Negative) HPF Urine Bacteria (Negative) HPF Urine Casts (Negative) LPF Urine Mucus (Negative) Urine Other (Negative) Ur Culture Indicated? Urine Glucose (Negative) mg/dL Stool Calprotectin mcg/g Vancomycin Trough (10.0-20.0) ug/mL Urine Opiates Screen (Negative) Urine Methadone Screen (Negative) Ur Barbiturates Screen (Negative) Ur Tricyclics Screen (Negative) Ur Amphetamines Screen (Negative) U Benzodiazepines Scrn (Negative) Urine Cocaine Screen (Negative) Ur THC Screen (Negative) IgG (610-1,616) mg/dL IgG Total (767 - 1590) mg/dL IgG1 (341 - 894) mg/dL IgG2 (171 - 632) mg/dL IgG3 (18.4-106.0) mg/dL IgG4 (2.4-121.0) mg/dL IgA (85-499) mg/dL IgM (35-242) mg/dL IgE (<158) IU/mL NINI Titer NINI Titer 2 NINI Titer 3 NINI Interpretation (Negative) ANCA Immunofluorescen (Negative) ANCA Titer ANCA Pattern Thyroperoxidase Ab (<=60) IU/mL Thyroglobulin Antibody (<=60) IU/mL Blastomyces Ag Result Not Detected Blastomyces Ag Comment ng/mL Not Detected COVID-19 Source SARS-CoV-2 (PCR) Hep Bs Antigen (Negative) Hep Bs Antibody (See Note) Hep Bs Antibody, Quant (See Note) mIU/mL Hep B Core Total Ab (Negative) Hepatitis C Antibody (Negative) HIV 1&2 Ag/Ab, 4th Gen (Negative) Urine Legionella Ag (Negative) Negative Ur Strep pneumoniae Ag (Negative) Negative B-(1,3)-D-Glucan Quant (<60 pg/mL) pg/mL B-(1,3)-D-Glucan Qual (Negative) Add-On Test Request Patient ABO/Rh Antibody Screen
[2021-11-30] MEDS: Enoxaparin 40 MG/0.4 ML SYR SC (10:10)
--- NOTE | 2021-11-30 11:44 | PDOC.CMPRO ---
- If Service Date Differs Date of service: 11/30/21 Time of Service: 11:44 Care Management Progress Note S/O: Nicol was sitting up in bed, working on a puzzle, she reported feeling really excited to visit with her family this evening and was hopeful she could continue weekly visits on Fridays from 5:00-6:00. CM reviewed details of visits, which Nicol agreed to review with her family prior. CM continues to follow. A: 36 year old female admitted to [facility] on 11/13/21 for Dry, Gangrene RLE. P: Nicol will require IV abx and ongoing wound care for gangrenous wound(s) on her right ankle, skin graft surgical intervention took place yesterday, 11/29/21. Nicol will transition to SWB1 status when medically ready. CM will coordinate and support in person family visitation.
--- NOTE | 2021-11-30 13:30 | W.PM.PROGNOT ---
Date of Service Date of service: 11/30/21 Time of Service: 13:30 Assessment and Plan Assessment and plan (1) Wound infection: Status: Acute Assessment and plan: continue Rocephin 2 gm iv daily along w/ flagyl 500 mg iv q8hr for 3 weeks (through 12/14). Xenograft placed 11/29/21. Surgery to remove VAC on , 12/04. Cont good nutritional support including protein supplementation (2) Puncture wound of left foot: Status: Acute Assessment and plan: continue Mepilex. xray did not show any foreign body (3) Hypoalbuminemia due to protein-calorie malnutrition: Status: Acute Assessment and plan: continue high protein diet, zinc and MVS supplements (4) Depression: Status: Chronic Assessment and plan: Cymbalta added for pain control as well as for depression. (5) Lung mass: Status: Deleted Assessment and plan: CT demonstrated: IMPRESSION: 1. In the posterior segment of the right upper lobe there is a spiculated infiltrate measuring 27 x 17 x 16 millimeters, corresponding to what is described on the recent portable chest x-ray and suspicious for malignancy although the possibility of this being infectious infiltrate cannot be excluded.? This require close follow-up to rule out malignancy.? In the posterior basal segment of the right lower lobe there are smaller spiculated nodular infiltrates also noted, the largest measuring 13 x 11 millimeters.? No pleural effusions. 2. Left lung decrease hemithoracic volume, probably related to thoracotomy.? Large confluent bullae noted both superior inferiorly but no evidence of true empyema. 3. Small lymph nodes as described above I suggest pulmonary consult w/ Dr. Chao (6) Narcotic abuse in remission: Assessment and plan: Cont on her home high dose suboxone therapy. Her gabapetin dosing schedule has been adjusted during this stay to try to avert excessive sleepiness. dc'd the a.m. dose and raised her 1400 dose and her HS dose. (7) Hyperthyroidism: Status: Chronic Assessment and plan: Plan is to recheck a TSH in 4 to 6 weeks. Recheck her FT4/T3 in 2 weeks (2 weeks from start of her methimazole which was 11/15. (8) DVT prophylaxis: Status: Acute Assessment and plan: cont. enoxaparin 40 mg SC daily (9) Discharge planning issues: Status: Acute Assessment and plan: patient currently requires acute inpatient hospitalization while her wound is being actively treated and she is on iv antibiotics and she requires daily physician visits. (10) Bronchiectasis: Status: Acute Assessment and plan: Pulmonary, Dr Chao following. Her immunoglobulins are normal. HIV, NINI, ANCA negative. [place] [facility] [place] &% HTS nebs BID; continue when discharged. (11) Bullous emphysema: Status: Acute Assessment and plan: Sprivia; cont upon discharge. PRN albuterol. Alpha 1 trypsin was normal. Subjective Subjective Patient reports: tolerating a regular diet and afebrile; denies diarrhea, nausea, vomiting or shortness of breath Interval history since last seen: Anxious much of the time. Not sleeping well. Exam Narrative Exam Narrative: Sitting on side of bed working on a [employer] puzzle. Cooperative, interactive. Lungs clear. CV RRR Neuro: JULIEN. Normal cognition. Psych: A&O x 3. Affect is normal. Ext.Right ankle bandage in place. Objective Last Vital Signs Temp 37.3 C 11/30/21 08:58 Pulse 81 11/30/21 08:58 Resp 17 11/30/21 08:58 BP 113/78 11/30/21 08:58 Pulse Ox 100 11/30/21 08:58 Laboratory Results - last 24 hr 11/26/21 11/27/21 11/27/21 06:36 12:30 12:30 Blastomyces Ag Result Not Detected Blastomyces Ag Comment Not Detected Ur Strep pneumoniae Ag Negative AFB Source AFB Culture Final Res B-(1,3)-D-Glucan Quant 78 A B-(1,3)-D-Glucan Qual Indeterminate A M. Tuberculosis PCR AFB Smear (Ref Lab) 11/29/21 12:45 Blastomyces Ag Result Blastomyces Ag Comment Ur Strep pneumoniae Ag AFB Source Cancelled AFB Culture Final Res Cancelled B-(1,3)-D-Glucan Quant B-(1,3)-D-Glucan Qual M. Tuberculosis PCR Cancelled AFB Smear (Ref Lab) Cancelled
[2021-11-30] MEDS: Gabapentin 300 MG CAP PO (14:13)
[2021-11-30] MEDS: hydrOXYzine PAMOATE 25 MG CAP PO (14:43)
[2021-11-30 14:51] VITALS: BP 109/73; PULSE 59; RESP 19; TEMP 37; O2SAT 95
[2021-11-30] MEDS: cefTRIAXone 2 GM/50 ML BAG IVPB (15:46)
--- NOTE | 2021-11-30 16:12 | INPN_ITS ---
Date of service: 11/30/21 Time of Service: 16:12 PT Notes Visit Reasons: Dry,Gangrene RLE Physical Therapy Inpatient Progress Note Date: 11/30/2021 Dates of service: 11/24/2021 through 11/30/2021 Precautions: Fall. Standard. NWB on R LE until clearance from surgeon is received. Hold off on exercises at the ankle until clearance from surgeon is received. Subjective: Agreeable to PT session.? Objective: General Observation: Cachexic.? IV in the L UE.? Wound dressing to right foot and ankle.? Wound vacuum in place. Mental Status: Alert and oriented as to person, place, time, and purpose. Able to pay attention, focus, and respond appropriately. Pain: 6-7/10 with ambulation activity ROM: Right Upper Extremity: ? Shoulder Flexion WFL. Shoulder abduction WFL. Elbow flexion WFL. Wrist flexion WFL. Functional opening and closing of hand WFL. Left Upper Extremity:? Shoulder Flexion WFL. Shoulder abduction WFL. Elbow flexion WFL. Wrist flexion WFL. Functional opening and closing of hand WFL. Right Lower Extremity: Hip flexion WFL. Hip abduction WFL. Knee flexion WFL. Ankle dorsiflexion NT. Ankle plantarflexion less than NT.? Full flexion WFL.? Full extension WFL. Left Lower Extremity:? Hip flexion WFL. Hip abduction WFL. Knee flexion WFL. Ankle dorsiflexion WFL. Ankle plantarflexion WFL. Strength: Right Upper Extremity: Shoulder flexors 4-/5. Shoulder abductors 4-/5. Elbow flexors 4-/5. Elbow extensors 4-/5. Usability Specialist strong. Left Upper Extremity: Shoulder flexors 4-/5. Shoulder abductors 4-/5. Elbow flexors 4-/5. Elbow extensors 4-/5. Usability Specialist strong. Right Lower Extremity: Hip flexors 4-/5. Hip abductors 4-/5. Knee flexors 4-/5. Knee extensors 4-/5. Ankle dorsiflexors 1/5. Ankle plantarflexors 1/5.? Toe flexion 4/5.? Toe extension 4/5. Left Lower Extremity: Hip flexors 4-/5. Hip abductors 4-/5. Knee flexors 4-/5. Knee extensors 4-/5. Ankle dorsiflexors 4-/5. Ankle plantarflexors 4-/5. Bed Mobility/Transfers: Supine to sit independent Sit to stand independent Stand to sit independent Bed to reclining chair independent Gait: Able to tolerate level surface ambulation of up to 300 feet x 2 NWB on R LE due to new allograft. Uses 4 wheeled walker.? Only needs standby assist.? THERA EX: Continued to reinforce R LE range of motion exercises to minimize contracture formation and facilitate granulation tissue formation. Balance: Static Sitting: Normal Dynamic Sitting: Normal Static Standing: Fair Dynamic Standing: Fair Special Tests: Mobility Limitations Standardized Measure [facility] AM-PAC 6 clicks Basic Mobility Inpatient Short Form: Raw Score: 23 CMS Score: 11% deficit? ? ? Informed Consent/Education:? Patient was instructed in purpose of PT consult and plan of care. Agreeable to proceed with established PT POC to achieve personal goals. Assessment: No exercises at the ankle until clearance from surgeon is received. Nicol demonstrates functional mobility decline requiring the use of 4WW for all transfer and ambulation due to limited weight bearing on the R LE.? Pain level primarily limits mobility performance and therefore pre-medication for pain is paramount for session participation. Patient presents with clinical signs and symptoms consistent with current/admitting diagnoses that have resulted to mobility limitations, gait instability, generalized weakness, and overall ADL decline as demonstrated by the following impairment level findings: 1.? Decreased strength to B ankle major muscle groups 2.? Impaired standing balance 3.? Impaired activity tolerance 4.? Limitation of joint range of motion in R ankle 5.? Pain in R ankle at rest and with movement 6.? Swelling in R foot and toes Impairments are contributing to the following functional limitations: 1.? Decline in bed mobility skills 2.? Decline in transfer skills 3.? Difficulty with ambulation without assistive device and physical assistance 4.? Increased completion time for mobility ADL performance 5.? Increased risk for falls 6.? Difficulty with managing steps alone safely Patient is assessed as a 47701 moderate complexity based on the following: History: 36-year-old femalewith past medical history as indicated above Examination: Demonstrable impairment in strength, balance, and mobility level with underlying impairments and functional limitations as exhibited above as well as deficit score of 36% utilizing the [facility] Mobility Inpatient Short Form Presentation:? Evolving Decision Makin moderate complexity Goals: Goals X1 week 1. Supine-Sit independent MET 2. Sit-Supine independent MET 3. Sit-Stand independent MET 4. Stand-Sit independent with FWW MET 5. Bed-Chair independent with FWW MET 6. Chair-Bed independent with FWW MET 7. Independent gait on level surface with use of FWW for at least 500 feet without report of pain nor dyspnea NOT MET, CONTINUE 8. Independent stair negotiation while holding onto no rails for at least 6 steps without report of pain nor dyspnea NOT MET, CONTINUE 9. Independent with home exercise program NOT MET, CONTINUE 10. Good static and dynamic standing balance/tolerance NOT MET, CONTINUE Plan of Care/Treatment Plan: 1-2x/day, 7 days/week x 1 week. Plan of care has been reviewed with the [employer] providing the service under Physical Therapy direction. Initiate Physical Therapy intervention for pain management as needed, strengthening, bed mobility, transfers, gait, stairs, balance training, and use of assistive device. DISCHARGE RECOMMENDATIONS: [] ? Home with no services [] [] ? Home with services [specify] [X] ? Home with outpatient PT. Patient will benefit from outpatient PT services in order to progress mobility level using least restrictive assistive ambulatory device while progressing mobility level to PLOF that will increase ability of patient to remain at home. [] ? SNF for continued rehabilitation [] [] ? Shelter Care [] [] ? SNF versus LTC based on ability to participate and progress [] TREATMENT CODE/TIME: 68656 x 16 minutes beginning at 16:12 PM. Thank you for the opportunity to participate in the care of this patient. Funmi Castañeda PT, DPT, CLT [facility] [place], [place]
--- NOTE | 2021-11-30 18:57 | W.PM.PROGNOT ---
Date of Service Date of service: 11/30/21 Time of Service: 18:00 Assessment and Plan Assessment and plan (1) Status post xenograft placement: Status: Acute Assessment and plan: Continuue local wound care with VAC in place until 12/04. If leaks, reinforce dressing (2) Bullous emphysema: Status: Acute Assessment and plan: Cont Spiriva, breathing treatments prn Appreciate pulm/ CC input (3) Bronchiectasis: Status: Acute (4) Dry gangrene: Status: Acute (5) Wound infection: Status: Acute (6) Stage III pressure ulcer of right ankle: Status: Acute (7) Smoker unmotivated to quit: Status: Chronic (8) Hypoalbuminemia due to protein-calorie malnutrition: Status: Acute (9) COPD (chronic obstructive pulmonary disease): Status: Chronic (10) DVT prophylaxis: Status: Acute Subjective Subjective Interval history since last seen: Multiple attempts made to see patient, but patient was off the floor visiting with her children. Nursing did not report any acute issues. Objective Last Vital Signs Temp 98.6 F 11/30/21 14:51 Pulse 59 L 11/30/21 14:51 Resp 19 11/30/21 14:51 BP 109/73 11/30/21 14:51 Pulse Ox 95 11/30/21 14:51 Laboratory Results - last 24 hr 11/27/21 11/27/21 11/29/21 12:30 12:30 12:45 Blastomyces Ag Result Not Detected Blastomyces Ag Comment Not Detected Urine Histoplasma Ag Not Detected U Histoplasma Ag Index Not Detected AFB Source Cancelled AFB Culture Final Res Cancelled M. Tuberculosis PCR Cancelled AFB Smear (Ref Lab) Cancelled
[2021-11-30] MEDS: Gabapentin 300 MG CAP 600 MG PO (21:14)
[2021-11-30] MEDS: traMADol 50 MG TAB PO (21:14)
[2021-11-30] MEDS: LORazepam 1 MG TAB PO (21:22)
[2021-11-30 23:57] VITALS: BP 106/66; PULSE 83; RESP 18; TEMP 35.7; O2SAT 100
[2021-12-01] MEDS: metroNIDAZOLE 500 MG/100 ML BAG 100 MG IVPB ×3 (01:15→17:58)
[2021-12-01] MEDS: Zolpidem 6.25 MG TABCR 12.5 MG PO (01:26)
[2021-12-01] MEDS: Normal Saline Flush 10 ML SYR IVP ×3 (01:26→20:07)
[2021-12-01 06:50] LABS: Abs Immature Grans 0.05 10^3/uL (0.0-0.06); Absolute Basophil Count 0.09 10^3/uL (0.0-0.2); Absolute Eosinophil Count 0.35 10^3/uL (0.0-0.7); Absolute Lymphocyte Count 2.96 10^3/uL (1.2-3.4); Absolute Monocyte Count 0.63 10^3/uL (0.1-0.8); Absolute Neutrophil Count 6.12 10^3/uL (1.2-6.7); Basophils % 0.9; Eosinophils % 3.4; HCT 36.3 % (36.0-46.0); HGB 10.8 g/dL (11.2-15.7); Immature Grans % 0.5; MCHC 29.8 % (32.0-36.0); MCV 90.8 fL (80-95); Monocytes % 6.2; Nucleated RBC 0 %; RDW 19.9 % (11.7-14.6)
[2021-12-01 07:05] LABS: BUN 13 mg/dL (7-18); CREATININE 0.7 mg/dL (0.55-1.02); Calcium 9.1 mg/dL (8.5-10.1); Chloride 105 mmol/L (98-107); Glucose 89 mg/dL (74-106); Potassium 3.5 mmol/L (3.5-5.1); Sodium 140 mmol/L (136-145)
[2021-12-01 07:26] LABS: Platelet Count 791 10^3/uL (130-400)
[2021-12-01 07:27] LABS: Diff Comment Diff Reviewed; RBC Morphology Normal
[2021-12-01] MEDS: methIMAzole 5 MG TAB PO (07:38)
[2021-12-01] MEDS: Cyanocobalamin 500 MCG TAB 1000 MCG PO (07:38)
[2021-12-01] MEDS: Buprenorphine/Naloxone 8 mg/2 mg FILM 2 EACH SL (07:38)
[2021-12-01] MEDS: Ascorbic Acid 500 MG TAB PO ×2 (07:38→20:07)
[2021-12-01] MEDS: Famotidine 20 MG TAB PO ×2 (07:38→20:07)
[2021-12-01] MEDS: DULoxetine 20 MG CAP PO ×2 (07:38→20:08)
[2021-12-01] MEDS: Zinc Sulfate 220 MG TAB PO (07:38)
[2021-12-01] MEDS: Buprenorphine/Naloxone 2 mg/0.5 mg FILM 1 EACH SL (07:39)
[2021-12-01] MEDS: Tiotropium Bromide-Respimat 10 PUFF INH 2 PUFF IH (07:46)
[2021-12-01 07:54] LABS: Iron 49 ug/dL (50-170); Total Iron Binding Capacity 179 ug/dL (250-450); Transferrin Sat 27 % (15-50)
[2021-12-01] MEDS: Enoxaparin 40 MG/0.4 ML SYR SC (10:39)
[2021-12-01] MEDS: LORazepam 1 MG TAB PO ×3 (10:39→22:21)
--- NOTE | 2021-12-01 13:00 | PT.INTREAT ---
PT Notes Visit Reasons: Dry,Gangrene RLE Inpatient Physical Therapy Treatment Note [facility] Date: 12/01/21 SUBJECTIVE:Mary offers no complaints to me today. OBJECTIVE: [] BED MOBILITY/TRANSFERS Supine-sit: I Sit-supine: I Sit-stand:I Stand-sit: I GAIT Assistive Device: 4ww Weight bearing: NWM right Assist: I/S Distance: 260' stood and colored x 10 min ASSESSMENT: tolerated session well. Safely moves about using her walker, picking up and tidying her room. PLAN: continue progressing functional mobility adding in strengthening to tolerance. TREATMENT CODE/TIME: 25 min. 24314x2
[2021-12-01] MEDS: Gabapentin 300 MG CAP PO (14:36)
[2021-12-01 15:26] VITALS: BP 105/58; PULSE 71; RESP 12; TEMP 36.8; O2SAT 97
[2021-12-01] MEDS: cefTRIAXone 2 GM/50 ML BAG IVPB (16:55)
--- NOTE | 2021-12-01 16:58 | W.PM.PROGNOT ---
Date of Service Date of service: 12/01/21 Time of Service: 15:33 Assessment and Plan Assessment and plan (1) Status post xenograft placement: Status: Acute Assessment and plan: Continuue local wound care with VAC in place until 12/04. If leaks, reinforce dressing She is reportedly getting adequate protein supplementation from protein bars, and a protein shake (2) Bullous emphysema: Status: Acute Assessment and plan: Cont Spiriva, breathing treatments prn Appreciate pulm/ CC input (3) Bronchiectasis: Status: Acute (4) Dry gangrene: Status: Acute (5) Wound infection: Status: Acute (6) Stage III pressure ulcer of right ankle: Status: Acute (7) Smoker unmotivated to quit: Status: Chronic (8) Hypoalbuminemia due to protein-calorie malnutrition: Status: Acute (9) COPD (chronic obstructive pulmonary disease): Status: Chronic (10) DVT prophylaxis: Status: Acute Subjective Subjective Patient reports: no new complaints, still having pain, tolerating a regular diet, flatus and bowel movement; denies nausea, vomiting or fever Exam Const General: cooperative and no acute distress Nutritional Appearance: malnourished Orientation: alert, awake and oriented x3 Resp Effort & Inspection: normal respiratory effort, able to speak in complete sentences, no grunting and not labored Auscultation: clear to auscultation bilaterally Cardio Rate: regular rate Rhythm: regular rhythm Heart Sounds: S1 normal and S2 normal GI Palpation: soft, no guarding and nontender Auscultation: normal bowel sounds Extrem Other: dressing to RLE: SCD to LLE Psych Mood: congruent mood Attitude: cooperative Insight: insight good Objective Last Vital Signs Temp 98.2 F 12/01/21 15:26 Pulse 71 12/01/21 15:26 Resp 12 12/01/21 15:26 BP 105/58 L 12/01/21 15:26 Pulse Ox 97 12/01/21 15:26 Laboratory Results - last 24 hr 12/01/21 12/01/21 12/01/21 06:10 06:10 06:10 WBC 10.20 RBC 4.00 Hgb 10.8 L Hct 36.3 MCV 90.8 MCH 27.0 MCHC 29.8 L RDW 19.9 H Plt Count 791 H* MPV 9.0 Immature Gran % 0.5 Neutrophils % 60.0 Lymphocytes % 29.0 Monocytes % 6.2 Eosinophils % 3.4 Basophils % 0.9 Nucleated RBC % 0 Absolute Neutrophils 6.12 Absolute Lymphocytes 2.96 Absolute Monocytes 0.63 Absolute Eosinophils 0.35 Absolute Basophils 0.09 RBC Morphology Normal Sodium 140 Potassium 3.5 Chloride 105 Carbon Dioxide 29.0 Anion Gap 6.0 BUN 13 Creatinine 0.7 Estimated GFR/1.73 m2 >= 60.00 Glucose 89 Calcium 9.1 Iron 49 L TIBC 179 L Transferrin % Sat 27
[2021-12-01] MEDS: Acetaminophen 325 MG TAB 650 MG PO (20:12)
[2021-12-01] MEDS: Gabapentin 300 MG CAP 600 MG PO (21:33)
[2021-12-01] MEDS: traMADol 50 MG TAB PO (21:33)
[2021-12-01 23:00] VITALS: BP 101/76; PULSE 103; RESP 12; TEMP 37.3; O2SAT 97
[2021-12-02] MEDS: Normal Saline Flush 10 ML SYR IVP ×4 (02:09→17:39)
[2021-12-02] MEDS: metroNIDAZOLE 500 MG/100 ML BAG 100 MG IVPB ×3 (02:09→18:28)
[2021-12-02 06:48] VITALS: BP 114/74; PULSE 74; RESP 12; TEMP 36; O2SAT 97
[2021-12-02] MEDS: Tiotropium Bromide-Respimat 10 PUFF INH 2 PUFF IH (07:30)
[2021-12-02] MEDS: Ascorbic Acid 500 MG TAB PO ×2 (07:46→19:15)
[2021-12-02] MEDS: DULoxetine 20 MG CAP PO ×2 (07:46→19:15)
[2021-12-02] MEDS: Famotidine 20 MG TAB PO ×2 (07:46→19:15)
[2021-12-02] MEDS: Zinc Sulfate 220 MG TAB PO (07:46)
[2021-12-02] MEDS: Cyanocobalamin 500 MCG TAB 1000 MCG PO (07:47)
[2021-12-02] MEDS: methIMAzole 5 MG TAB PO (07:47)
[2021-12-02] MEDS: Buprenorphine/Naloxone 2 mg/0.5 mg FILM 1 EACH SL (07:48)
[2021-12-02] MEDS: Buprenorphine/Naloxone 8 mg/2 mg FILM 2 EACH SL (07:48)
[2021-12-02] MEDS: LORazepam 1 MG TAB PO ×2 (07:56→17:12)
[2021-12-02] MEDS: traMADol 50 MG TAB PO ×2 (07:56→21:17)
[2021-12-02] MEDS: Normal Saline 500 ML 30 ML IV (10:05)
[2021-12-02] MEDS: Enoxaparin 40 MG/0.4 ML SYR SC (10:06)
--- NOTE | 2021-12-02 12:12 | PT.INTREAT ---
PT Notes Visit Reasons: Dry,Gangrene RLE Inpatient Physical Therapy Treatment Note [facility] Date: 12/01/21 SUBJECTIVE:Mary states that her foot is hurting today. She c/o being hot. OBJECTIVE: [] BED MOBILITY/TRANSFERS Supine-sit: I Sit-supine: I Sit-stand:I Stand-sit: I GAIT Assistive Device: 4ww Weight bearing: NWM right Assist: I/S Distance: 260' stood and colored x 15 min at no charge. ASSESSMENT: tolerated session well. PLAN: continue progressing functional mobility adding in strengthening to tolerance. TREATMENT CODE/TIME: 20 min. [id number]
[2021-12-02] MEDS: Gabapentin 300 MG CAP PO (13:38)
[2021-12-02 14:36] LABS: Fungitell Qualitative Indeterminate (Negative); Fungitell Quantitative Value 69 pg/mL (<60 pg/mL)
[2021-12-02 15:16] VITALS: BP 110/80; PULSE 100; RESP 18; TEMP 36.9; O2SAT 99
--- NOTE | 2021-12-02 15:19 | PGE_ITS ---
Date of Service Date of service: 12/02/21 Time of Service: 13:37 Assessment and Plan Assessment and plan (1) Status post xenograft placement: Status: Acute Assessment and plan: Continuue local wound care with VAC in place until 12/04. If leaks, reinforce dressing She is reportedly getting adequate protein supplementation from protein bars, and a protein shake (2) Bullous emphysema: Status: Acute Assessment and plan: Cont Spiriva, breathing treatments prn Appreciate pulm/ CC input (3) Bronchiectasis: Status: Acute (4) Dry gangrene: Status: Acute (5) Wound infection: Status: Acute (6) Stage III pressure ulcer of right ankle: Status: Acute (7) Smoker unmotivated to quit: Status: Chronic (8) Hypoalbuminemia due to protein-calorie malnutrition: Status: Acute (9) COPD (chronic obstructive pulmonary disease): Status: Chronic (10) DVT prophylaxis: Status: Acute (11) Thyroid nodule: Status: Acute Assessment and plan: Will need further eval with biopsy +/- scintigraphy Subjective Subjective Patient reports: no new complaints, tolerating a regular diet and afebrile; denies nausea, vomiting or shortness of breath Exam Const General: cooperative, comfortable and no acute distress Nutritional Appearance: malnourished Orientation: alert, awake and oriented x3 Resp Effort & Inspection: normal respiratory effort and able to speak in complete se ntences Auscultation: clear to auscultation bilaterally GI Palpation: soft and not rigid Neuro General: patient alert, patient awake and patient oriented x3 Cognition: normal cognition Speech: speech normal Extrem Other: dressing to RLE with VAC intact, toes warm, sensation intact; 2+ palpable DP on LLE Psych Affect: normal affect Attitude: cooperative Insight: insight good Judgment: judgment good Objective Last Vital Signs Temp 98.4 F 12/02/21 15:16 Pulse 100 H 12/02/21 15:16 Resp 18 12/02/21 15:16 BP 110/80 12/02/21 15:16 Pulse Ox 99 12/02/21 15:16
[2021-12-02] MEDS: cefTRIAXone 2 GM/50 ML BAG IVPB (17:38)
[2021-12-02] MEDS: Gabapentin 300 MG CAP 600 MG PO (21:08)
[2021-12-03 00:04] VITALS: BP 113/75; PULSE 98; RESP 16; TEMP 36.6; O2SAT 96
[2021-12-03] MEDS: metroNIDAZOLE 500 MG/100 ML BAG 100 MG IVPB ×3 (02:02→18:15)
[2021-12-03] MEDS: Acetaminophen 325 MG TAB 650 MG PO (03:22)
[2021-12-03] MEDS: LORazepam 1 MG TAB PO ×2 (04:10→18:14)
[2021-12-03] MEDS: Tiotropium Bromide-Respimat 10 PUFF INH 2 PUFF IH (07:37)
[2021-12-03 07:39] LABS: Abs Immature Grans 0.05 10^3/uL (0.0-0.06); Absolute Basophil Count 0.09 10^3/uL (0.0-0.2); Absolute Eosinophil Count 0.37 10^3/uL (0.0-0.7); Absolute Lymphocyte Count 2.93 10^3/uL (1.2-3.4); Absolute Monocyte Count 0.76 10^3/uL (0.1-0.8); Basophils % 0.8; Eosinophils % 3.2; HCT 33.5 % (36.0-46.0); HGB 10.3 g/dL (11.2-15.7); Immature Grans % 0.4; Lymphocytes % 25.5; MCH 27.4 pg (27.0-33.0); MCHC 30.7 % (32.0-36.0); MCV 89.1 fL (80-95); MPV 8.9 fL (8.0-11.0); Monocytes % 6.6; Neutrophils % 63.5; Nucleated RBC 0 %; RBC 3.76 10^6/uL (3.93-5.22); RDW 20.5 % (11.7-14.6); RDW-SD 67.2 fL; WBC 11.49 10^3/uL (4.4-10.8)
[2021-12-03] MEDS: Buprenorphine/Naloxone 2 mg/0.5 mg FILM 1 EACH SL (07:44)
[2021-12-03] MEDS: Buprenorphine/Naloxone 8 mg/2 mg FILM 2 EACH SL (07:44)
[2021-12-03] MEDS: Famotidine 20 MG TAB PO ×2 (07:47→20:05)
[2021-12-03] MEDS: Cyanocobalamin 500 MCG TAB 1000 MCG PO (07:50)
[2021-12-03] MEDS: Ascorbic Acid 500 MG TAB PO ×2 (07:50→20:05)
[2021-12-03] MEDS: Zinc Sulfate 220 MG TAB PO (07:50)
[2021-12-03] MEDS: methIMAzole 5 MG TAB PO (07:50)
[2021-12-03] MEDS: DULoxetine 20 MG CAP PO ×2 (07:50→20:05)
[2021-12-03 07:51] LABS: Anion Gap 8.6 mmol/L (3-11); BUN 17 mg/dL (7-18); CO2 25.4 mmol/L (21.0-32.0); CREATININE 0.7 mg/dL (0.55-1.02); Chloride 106 mmol/L (98-107); Glucose 93 mg/dL (74-106); Magnesium 2.1 mg/dL (1.8-2.4); Potassium 4.1 mmol/L (3.5-5.1); Sodium 140 mmol/L (136-145)
[2021-12-03 07:52] VITALS: BP 110/64; PULSE 70; RESP 16; TEMP 37.1; O2SAT 100
[2021-12-03 07:54] LABS: Anisocytosis 2+; Diff Comment Diff Reviewed; Platelet Count 686 10^3/uL (130-400)
--- NOTE | 2021-12-03 09:55 | W.NUTRFU ---
Date of service: 12/03/21 Time of Service: 09:55 Nutrition Note NOTE: Nicol continues to be very picky eater but motivated to get her 70 grams of protein in daily. Refusing liquid protein shots, but willing to consume higher protein foods. S/p skin graft. Recommend prealbumin level to assess adequacy of po intake. Time Spent in Nutritional Counseling and Treatment: 0
[2021-12-03] MEDS: Enoxaparin 40 MG/0.4 ML SYR SC (10:28)
[2021-12-03] MEDS: Normal Saline Flush 10 ML SYR IVP ×3 (10:31→20:05)
--- NOTE | 2021-12-03 10:43 | PDOC.CMPRO ---
- If Service Date Differs Date of service: 12/03/21 Time of Service: 15:21 Care Management Progress Note S/O: Nicol was lying down, asleep when CM attempted to meet with her today. CM continues to follow. A: 36 year old female admitted to [facility] on 11/13/21 for Dry, Gangrene RLE. P: Nicol will require IV abx and ongoing wound care for gangrenous wound(s) on her right ankle, skin graft surgical intervention took place yesterday, 11/29/21. Nicol will transition to SWB1 status when medically ready. CM will coordinate and support in person family visitation.
--- NOTE | 2021-12-03 12:19 | W.PM.PROGNOT ---
Date of Service Date of service: 12/03/21 Time of Service: 12:19 Assessment and Plan Assessment and plan (1) Wound infection: Status: Acute Assessment and plan: E.Coli and GBS in cultures. Continue current antibiotic regimen (Rocephin 2 gm iv daily and flagyl 500 mg iv q8hr) through 12/14/21. s/p Xenograft 11/29/21. Surgery is managing wound vac. Continue nutritional support with protein to improve healing. (2) Puncture wound of left foot: Status: Acute Assessment and plan: continue Mepilex (3) Hypoalbuminemia due to protein-calorie malnutrition: Status: Acute Assessment and plan: continue high protein diet, multivitamins, zinc. (4) Depression: Status: Chronic Assessment and plan: Continue cymbalta (5) Lung mass: Status: Deleted Assessment and plan: Will need outpatient CT in 2 months as well as pulmonlogy follow up (also has COPD and bronchiectasis). (6) Narcotic abuse in remission: Assessment and plan: Continue suboxone. (7) Hyperthyroidism: Status: Chronic Assessment and plan: Continue methimazole Recheck a TSH in beginning of December. FT4 down to 0.97 on methimazole (11/23/21). Does have a thyroid nodule. Once over acute illness, will need to discontinue methimazole for 1 week prior to a thyroid scan. Will need to be on a low iodine diet. If nodule is cold, will need a biopsy. (8) Bronchiectasis: Status: Acute Assessment and plan: Will need follow up with Dr Chao. Her immunoglobulins are normal. HIV, ANCA negative. NINI positive. [place] [facility] [place] Continue 7% HTS nebs - will need these on discharge. (9) Bullous emphysema: Status: Acute Assessment and plan: Continue Spriva and PRN albuterol. Alpha 1 anti-trypsin normal. (10) DVT prophylaxis: Status: Acute Assessment and plan: SC lovenox. (11) Discharge planning issues: Status: Acute Assessment and plan: Defer to primary team. Subjective Subjective Interval history since last seen: Nicol feels better. She has some pain in her R leg, but it is manageable. She feels less anxious. Denies dizziness, chest pain, shortness of breath, nausea. Exam Narrative Exam Narrative: General: Pleasant female who appears to be feeling better, significantly less anxious than when I last saw her, A&ox3; multiple puzzles/puzzle tables in the room HEENT: EOMI, MMM Heart: RRR (loud), not tachycardic, no m/r/g Lungs: CTAB Abdomen: soft, nontender, nondistended Extremities: RLE dressed - c/d/i; SCD LLE. Objective Last Vital Signs Temp 37.1 C 12/03/21 07:52 Pulse 70 12/03/21 07:52 Resp 16 12/03/21 07:52 BP 110/64 12/03/21 07:52 Pulse Ox 100 12/03/21 07:52 Laboratory Results - last 24 hr 11/30/21 12/03/21 12/03/21 11:50 07:19 07:19 WBC 11.49 H RBC 3.76 L Hgb 10.3 L Hct 33.5 L MCV 89.1 MCH 27.4 MCHC 30.7 L RDW 20.5 H Plt Count 686 H MPV 8.9 Immature Gran % 0.4 Neutrophils % 63.5 Lymphocytes % 25.5 Monocytes % 6.6 Eosinophils % 3.2 Basophils % 0.8 Nucleated RBC % 0 Absolute Neutrophils 7.30 H Absolute Lymphocytes 2.93 Absolute Monocytes 0.76 Absolute Eosinophils 0.37 Absolute Basophils 0.09 RBC Morphology See Below Anisocytosis 2+ Sodium 140 Potassium 4.1 Chloride 106 Carbon Dioxide 25.4 Anion Gap 8.6 BUN 17 Creatinine 0.7 Estimated GFR/1.73 m2 >= 60.00 Glucose 93 Calcium 9.0 Magnesium 2.1 B-(1,3)-D-Glucan Quant 69 A B-(1,3)-D-Glucan Qual Indeterminate A
--- NOTE | 2021-12-03 12:46 | PT.INNT ---
Date of service: 12/03/21 Time of Service: 12:46 PT Notes Visit Reasons: Dry,Gangrene RLE 12/03/2021 Patient refused to participate in PT this morning, stating I'm on the phone with my . She is agreeable to participating later today.
--- NOTE | 2021-12-03 13:06 | W.PM.PROGNOT ---
Date of Service Date of service: 12/03/21 Time of Service: 13:06 Assessment and Plan Assessment and plan (1) Status post xenograft placement: Status: Acute Assessment and plan: Continuue local wound care with VAC in place until 12/04. If leaks, reinforce dressing She is reportedly getting adequate protein supplementation from protein bars, and a protein shake (2) Bullous emphysema: Status: Acute Assessment and plan: Cont Spiriva, breathing treatments prn Appreciate pulm/ CC input (3) Bronchiectasis: Status: Acute (4) Dry gangrene: Status: Acute (5) Wound infection: Status: Acute (6) Stage III pressure ulcer of right ankle: Status: Acute (7) Smoker unmotivated to quit: Status: Chronic (8) Hypoalbuminemia due to protein-calorie malnutrition: Status: Acute (9) COPD (chronic obstructive pulmonary disease): Status: Chronic (10) DVT prophylaxis: Status: Acute (11) Thyroid nodule: Status: Acute Assessment and plan: Will need further eval with biopsy +/- scintigraphy Subjective Subjective Interval history since last seen: No new issues over the weekend WBC count slightly up. PLT count down No fevers Wound vac in place and working well Exam Extrem Other: Right lower extremity: no edema. Dressing intact Still unable to completely extend her foot Objective Last Vital Signs Temp 98.8 F 12/03/21 07:52 Pulse 70 12/03/21 07:52 Resp 16 12/03/21 07:52 BP 110/64 12/03/21 07:52 Pulse Ox 100 12/03/21 07:52 Laboratory Results - last 24 hr 11/30/21 12/03/21 12/03/21 11:50 07:19 07:19 WBC 11.49 H RBC 3.76 L Hgb 10.3 L Hct 33.5 L MCV 89.1 MCH 27.4 MCHC 30.7 L RDW 20.5 H Plt Count 686 H MPV 8.9 Immature Gran % 0.4 Neutrophils % 63.5 Lymphocytes % 25.5 Monocytes % 6.6 Eosinophils % 3.2 Basophils % 0.8 Nucleated RBC % 0 Absolute Neutrophils 7.30 H Absolute Lymphocytes 2.93 Absolute Monocytes 0.76 Absolute Eosinophils 0.37 Absolute Basophils 0.09 RBC Morphology See Below Anisocytosis 2+ Sodium 140 Potassium 4.1 Chloride 106 Carbon Dioxide 25.4 Anion Gap 8.6 BUN 17 Creatinine 0.7 Estimated GFR/1.73 m2 >= 60.00 Glucose 93 Calcium 9.0 Magnesium 2.1 B-(1,3)-D-Glucan Quant 69 A B-(1,3)-D-Glucan Qual Indeterminate A
[2021-12-03] MEDS: traMADol 50 MG TAB PO ×2 (13:23→22:07)
[2021-12-03] MEDS: Gabapentin 300 MG CAP PO (13:23)
[2021-12-03 14:11] LABS: Lab Add On Test DONE
--- NOTE | 2021-12-03 15:39 | PT.INNT ---
Date of service: 12/03/21 Time of Service: 15:39 PT Notes Visit Reasons: Dry,Gangrene RLE 12/03/2021 Patient refused to participate in PT this afternoon, stating I'm trying to chill out today because I don't want this thing to beep before tomorrow referring to the wound vac. She is agreeable to participating tomorrow.
[2021-12-03 15:44] VITALS: BP 123/77; PULSE 100; RESP 16; TEMP 36.8; O2SAT 96
[2021-12-03] MEDS: cefTRIAXone 2 GM/50 ML BAG IVPB (17:08)
[2021-12-03] MEDS: Gabapentin 300 MG CAP 600 MG PO (22:07)
[2021-12-03 22:13] LABS: T3, Total 130 ng/dL (97-169)
[2021-12-03 23:30] VITALS: BP 111/76; PULSE 73; RESP 18; TEMP 36.8; O2SAT 100
[2021-12-04] MEDS: LORazepam 1 MG TAB PO ×2 (00:20→17:41)
[2021-12-04] MEDS: Normal Saline Flush 10 ML SYR IVP ×5 (01:52→20:20)
[2021-12-04] MEDS: metroNIDAZOLE 500 MG/100 ML BAG 100 MG IVPB ×3 (01:53→17:35)
[2021-12-04 07:38] VITALS: BP 116/75; PULSE 94; RESP 18; TEMP 37.1; O2SAT 97
[2021-12-04] MEDS: Tiotropium Bromide-Respimat 10 PUFF INH 2 PUFF IH (07:44)
[2021-12-04] MEDS: Enoxaparin 40 MG/0.4 ML SYR SC (09:32)
[2021-12-04] MEDS: Buprenorphine/Naloxone 2 mg/0.5 mg FILM 1 EACH SL (09:32)
[2021-12-04] MEDS: Buprenorphine/Naloxone 8 mg/2 mg FILM 2 EACH SL (09:32)
[2021-12-04] MEDS: DULoxetine 20 MG CAP PO ×2 (09:33→20:19)
[2021-12-04] MEDS: Famotidine 20 MG TAB PO ×2 (09:33→20:19)
[2021-12-04] MEDS: Zinc Sulfate 220 MG TAB PO (09:33)
[2021-12-04] MEDS: methIMAzole 5 MG TAB PO (09:33)
[2021-12-04] MEDS: Cyanocobalamin 500 MCG TAB 1000 MCG PO (09:33)
[2021-12-04] MEDS: Ascorbic Acid 500 MG TAB PO ×2 (09:33→20:19)
[2021-12-04] MEDS: LORazepam 2 MG/ML VIAL 1 MG IVP ×2 (09:42→12:00)
[2021-12-04] MEDS: traMADol 50 MG TAB 150 MG PO (09:43)
--- NOTE | 2021-12-04 11:57 | WOUNDCONS ---
- If Service Date Differs Date of service: 12/04/21 Time of Service: 11:57 Wound Initial Evaluation Narrative: Follow up photos after patient had the wound graft from last week. Dr. Richey and Andria Hinkle are changing the wound vac at the patients bed side - Circulation, Sensation, Motion Sensation Description: Itching Per Dr. Richey, continue wound vac, Next change Friday, no further cleaning or Contact layer needed . Black foam only - Photo Photo:
--- NOTE | 2021-12-04 13:38 | W.PM.PROGNOT ---
Date of Service Date of service: 12/04/21 Time of Service: 14:08 Assessment and Plan Assessment and plan (1) COPD (chronic obstructive pulmonary disease): Status: Chronic (2) Bullous emphysema: Status: Acute (3) Bronchiectasis: Status: Acute (4) Stage III pressure ulcer of right ankle: Status: Acute (5) Hyperthyroidism: Status: Chronic (6) Hypoalbuminemia due to protein-calorie malnutrition: Status: Acute (7) Asthma: Status: Chronic (8) Narcotic abuse in remission: Assessment and plan: -3wks IV Rocephine/flagyl per ID for penumonia and wound infection -cont protein supplementation. _did D/w [place] and would create flexion splint for next friday continue wound vac. Will need home wound vac tsh suppression per hosp. overall looks really good CM is working transitioning to home. pt will need weekly clinic appts and at least once a week home RN appt. 60 mins Subjective Subjective Interval history since last seen: Pt is doing well. no headaches. No CP or SOB. no productive cough. no dysuria. no leg pain or swelling. No fever or chills. No diarrhea. She has been up walking. She has been taking her nutritional supplements. Labs reviewed today. She is on IV Rocephin and Flagyl until 12/14. Exam Narrative Exam Narrative: No thrush or jaundice. No further breakdown. Lungs are clear No further breakdown on back/coccyx Wound on right lower extremity: Surrounding tissue is intact without maceration or yeast minimal edema The lateral is 8 x 10cm with 80% take of the amnio fix. The base is 99% granular. There is epiilization around the entire wound. Medial is 13 x 11 cm with about 70% good take of the amnio fix. Again the base is 99% granular and epithelialization around the entirety of the wound Based. Patient has poor pain tolerance. Objective Last Vital Signs Temp 37.1 C 12/04/21 07:38 Pulse 94 H 12/04/21 07:38 Resp 18 12/04/21 07:38 BP 116/75 12/04/21 07:38 Pulse Ox 97 12/04/21 07:38 Laboratory Results - last 24 hr 12/03/21 12/03/21 07:19 07:19 Total T3 130 Add-On Test Request DONE
--- NOTE | 2021-12-04 14:55 | PDOC.CMPRO ---
- If Service Date Differs Date of service: 12/04/21 Time of Service: 14:55 Care Management Progress Note S/O: Nicol was sitting on her bed, watching TV and texting on her phone. Multiple puzzles were completed beside her and she reported looking forward to glueing them together. CM reviewed current treatment planning; Nicol reported talking to Dr. Richey who reported her graft took 80% on one side which was great, per her report. Nicol reported anticipating going back to surgery next week. When discussing care needs at home, Nicol shared concerns about managing her wound vac and dressing changes at home due to increased pain during changes and worries about air getting into the tubing which happened to Nicol per her report at 0500 one morning. CM encouraged Nicol to discuss with Dr. Richey and wrote question on her white board to remind her. Nicol shared feelings of wanting to return home, but also wanting to be successful. Undetermined if MD will transition Nicol to SWB1 prior to surgery next week, or not; CM continues to follow. A: 36 year old female admitted to [facility] on 11/13/21 for Dry, Gangrene RLE. P: Nicol will require IV abx and ongoing wound care for gangrenous wound(s) on her right ankle, skin graft surgical intervention took place 11/29/21 and per patient report, was successful. Nicol will transition to SWB1 status when medically ready. CM will continue to coordinate and support in person family visitation.
[2021-12-04 15:11] VITALS: BP 124/81; PULSE 103; RESP 18; TEMP 36.9; O2SAT 99
--- NOTE | 2021-12-04 15:28 | PTTR_ITS ---
Date of service: 12/04/21 Time of Service: 15:28 PT Notes Visit Reasons: Dry,Gangrene RLE Physical Therapy Inpatient Treatment Note Date: 12/04/2021 Precautions: Fall. Standard. WBAT on R LE with AD. Subjective: Agreeable to PT session.? Objective: General Observation:? Cachexic.? IV in the L UE.? Wound dressing to right foot and ankle.? Wound vacuum in place. Mental Status: Alert and oriented as to person, place, time, and purpose. Able to pay attention, focus, and respond appropriately. Pain: 6-7/10 with ambulation activity Bed Mobility/Transfers: Supine to sit independent Sit to stand independent Stand to sit independent Bed to reclining chair independent Gait: Able to tolerate level surface ambulation of up to 300 feet with WBAT on R LE.? Uses 4-wheeled walker.? Supervision assist. BLESSING EX: Has 100% mastery of her room exercises Balance: Static Sitting: Normal Dynamic Sitting: Normal Static Standing: Fair Dynamic Standing: Fair Assessment: Patient now modified independent with hallway ambulation of up to 300 feet using 4WW with weight bearing as tolerated on the R LE. Patient is able to manage wound vacuum placement into and out of walker bag and is able to tolerate WBAT on the R LE when pain is managed. Nurse Maintenance And Engineering Manager Nara and Nurse Jackie was updated of said upgrade. Patient is now decreased to 2x/week in order to facilitate use of proper footwear to R LE. DISCHARGE RECOMMENDATIONS: [] ? Home with no services [] [] ? Home with services [specify] [X] ? Home with outpatient PT. Patient will benefit from outpatient PT services in order to progress mobility level using least restrictive assistive ambulatory device while progressing mobility level to PLOF that will increase ability of patient to remain at home. [] ? SNF for continued rehabilitation [] [] ? [facility] [] [] ? SNF versus LTC based on ability to participate and progress [] TREATMENT CODE/TIME:? 06671 x 23 minutes beginning at 15:28 PM.
[2021-12-04] MEDS: cefTRIAXone 2 GM/50 ML BAG IVPB (15:31)
[2021-12-04] MEDS: Gabapentin 300 MG CAP PO (15:31)
[2021-12-04] MEDS: IRON SUCROSE COMPLEX 200 MG in Normal Saline 100 ML 400 MG IVPB (16:31)
[2021-12-04] MEDS: traMADol 50 MG TAB PO (22:04)
[2021-12-04] MEDS: Gabapentin 300 MG CAP 600 MG PO (22:04)
[2021-12-04 23:00] VITALS: BP 108/65; PULSE 95; RESP 18; TEMP 37; O2SAT 99
[2021-12-05] MEDS: LORazepam 1 MG TAB PO ×4 (00:29→23:40)
[2021-12-05] MEDS: Acetaminophen 325 MG TAB 650 MG PO ×2 (00:33→16:46)
[2021-12-05] MEDS: Normal Saline Flush 10 ML SYR IVP ×3 (02:14→19:30)
[2021-12-05] MEDS: metroNIDAZOLE 500 MG/100 ML BAG 100 MG IVPB ×3 (02:15→18:15)
[2021-12-05 07:02] LABS: Lab Add On Test DONE
[2021-12-05 07:20] LABS: Ferritin 492 ng/mL (8-252)
[2021-12-05 07:30] VITALS: BP 119/77; PULSE 83; RESP 17; TEMP 37.4; O2SAT 100
[2021-12-05] MEDS: Tiotropium Bromide-Respimat 10 PUFF INH 2 PUFF IH (07:47)
[2021-12-05] MEDS: Buprenorphine/Naloxone 8 mg/2 mg FILM 2 EACH SL (08:56)
[2021-12-05] MEDS: Buprenorphine/Naloxone 2 mg/0.5 mg FILM 1 EACH SL (08:56)
[2021-12-05] MEDS: Cyanocobalamin 500 MCG TAB 1000 MCG PO (08:57)
[2021-12-05] MEDS: methIMAzole 5 MG TAB PO (08:57)
[2021-12-05] MEDS: Zinc Sulfate 220 MG TAB PO (08:57)
[2021-12-05] MEDS: traMADol 50 MG TAB PO ×2 (08:57→21:07)
[2021-12-05] MEDS: DULoxetine 20 MG CAP PO ×2 (08:57→19:30)
[2021-12-05] MEDS: Ascorbic Acid 500 MG TAB PO ×2 (08:58→19:30)
[2021-12-05] MEDS: Famotidine 20 MG TAB PO ×2 (08:58→19:30)
--- NOTE | 2021-12-05 09:22 | W.PM.PROGNOT ---
Date of Service Date of service: 12/05/21 Time of Service: Assessment and Plan Assessment and plan (1) COPD (chronic obstructive pulmonary disease): Status: Chronic (2) Bullous emphysema: Status: Acute (3) Bronchiectasis: Status: Acute (4) Stage III pressure ulcer of right ankle: Status: Acute (5) Hyperthyroidism: Status: Chronic (6) Hypoalbuminemia due to protein-calorie malnutrition: Status: Acute (7) Asthma: Status: Chronic (8) Narcotic abuse in remission: Assessment and plan: -3wks IV Rocephine/flagyl per ID for penumonia and wound infection -cont protein supplementation. -did D/w [place] and would create flexion splint for next friday continue wound vac. Will need home wound vac tsh suppression per hospitalist Strongly encouraged participation in PT for anticipation of d/c home when able. Subjective Subjective Interval history since last seen: Arrived with patient resting comfortably. She denies having any pain at this time. Exam Const General: cooperative, healthy appearing and comfortable Orientation: alert and oriented x3 Resp Effort & Inspection: normal respiratory effort, no audible wheezes and no cough Objective Last Vital Signs Temp 37.4 C 12/05/21 07:30 Pulse 83 12/05/21 07:30 Resp 17 12/05/21 07:30 BP 119/77 12/05/21 07:30 Pulse Ox 100 12/05/21 07:30 Laboratory Results - last 24 hr 12/03/21 12/04/21 12/05/21 07:19 06:29 06:29 Sodium 140 Potassium 4.1 Chloride 106 Carbon Dioxide 25.4 Anion Gap 8.6 BUN 17 Creatinine 0.7 Estimated GFR/1.73 m2 >= 60.00 Glucose 93 Calcium 9.0 Magnesium 2.1 Ferritin Cancelled 492 H Add-On Test Request DONE
[2021-12-05] MEDS: Enoxaparin 40 MG/0.4 ML SYR SC (09:50)
--- NOTE | 2021-12-05 11:47 | PDOC.CMPRO ---
- If Service Date Differs Date of service: 12/05/21 Time of Service: 11:47 Care Management Progress Note S/O: Nicol was sitting up in bed talking on the phone when CM met with her. She was alert, oriented and easy to engage in conversation. She is planning on having her family visit on 12/07/21 from 5-6. Nicol is anticipating going back to surgery next week. When discussing care needs at home, Nicol shared concerns about managing her wound vac and dressing changes at home due to increased pain during changes and worries about air getting into the tubing which happened to Nicol per her report at 0500 one morning. CM encouraged Nicol to discuss with Dr. Richey and wrote question on her white board to remind her. Nicol shared feelings of wanting to return home, but also wanting to be successful. Undetermined if MD will transition Nicol to SWB1 prior to surgery next week, or not; CM continues to follow. A: 36 year old female admitted to [facility] on 11/13/21 for Dry, Gangrene RLE. P: Nicol will require IV abx and ongoing wound care for gangrenous wound(s) on her right ankle, skin graft surgical intervention took place 11/29/21 and per patient report, was successful. Nicol will transition to SWB1 status when medically ready. CM will continue to coordinate and support in person family visitation.
[2021-12-05] MEDS: Gabapentin 300 MG CAP PO (13:20)
[2021-12-05 15:14] VITALS: BP 126/72; PULSE 115; RESP 18; TEMP 37.1; O2SAT 99
[2021-12-05] MEDS: cefTRIAXone 2 GM/50 ML BAG IVPB (16:38)
[2021-12-05 19:50] VITALS: BP 116/81; PULSE 89; RESP 18; TEMP 36.7; O2SAT 100
[2021-12-05] MEDS: Gabapentin 300 MG CAP 600 MG PO (21:06)
[2021-12-06] MEDS: metroNIDAZOLE 500 MG/100 ML BAG 100 MG IVPB ×3 (02:10→17:20)
[2021-12-06 03:35] VITALS: BP 127/82; PULSE 71; RESP 17; TEMP 37.2; O2SAT 99
[2021-12-06 07:54] VITALS: BP 111/77; PULSE 106; RESP 16; TEMP 36.6; O2SAT 94
[2021-12-06] MEDS: Cyanocobalamin 500 MCG TAB 1000 MCG PO (08:48)
[2021-12-06] MEDS: Ascorbic Acid 500 MG TAB PO ×2 (08:48→19:45)
[2021-12-06] MEDS: Protein Nutritional Supplement 16 GM 1 OUNCE PACKET PO (08:48)
[2021-12-06] MEDS: Buprenorphine/Naloxone 8 mg/2 mg FILM 2 EACH SL (08:49)
[2021-12-06] MEDS: DULoxetine 20 MG CAP PO ×2 (08:49→19:45)
[2021-12-06] MEDS: Buprenorphine/Naloxone 2 mg/0.5 mg FILM 1 EACH SL (08:49)
[2021-12-06] MEDS: Zinc Sulfate 220 MG TAB PO (08:49)
[2021-12-06] MEDS: methIMAzole 5 MG TAB PO (08:49)
[2021-12-06] MEDS: Famotidine 20 MG TAB PO ×2 (08:49→19:45)
[2021-12-06] MEDS: LORazepam 1 MG TAB PO ×3 (08:58→21:56)
[2021-12-06] MEDS: traMADol 50 MG TAB PO ×2 (08:59→21:57)
--- NOTE | 2021-12-06 09:34 | PDOC.CMPRO ---
- If Service Date Differs Date of service: 12/06/21 Time of Service: 09:34 Care Management Progress Note S/O: Nicol was sitting up in bed when CM met with her. She looks remarkably good and shares that she feels good. She is happy to have gained 10lbs during this admission and is up independently in her room and able to ambulate in the halls at her leisure. She is planning on having her family visit on 12/07/21 from 5-6pm. nursing staff development coordinator or CM will help facilitate with their presence during that time. Nicol is anticipating going back to surgery next week. When discussing care needs at home, Nicol shared concerns about managing her wound vac and dressing changes at home due to increased pain during changes and worries about air getting into the tubing which happened to Nicol per her report at 0500 one morning. CM encouraged Nicol to discuss with Dr. Richey and wrote question on her white board to remind her. Nicol shared feelings of wanting to return home, but also wanting to be successful. Undetermined if MD will transition Nicol to SWB1 prior to surgery next week, or not; CM continues to follow. A: 36 year old female admitted to [facility] on 11/13/21 for Dry, Gangrene RLE. P: Nicol will require IV abx and ongoing wound care for gangrenous wound(s) on her right ankle, skin graft surgical intervention took place 11/29/21 and per patient report, was successful. Nicol will transition to SWB1 status when medically ready. CM will continue to coordinate and support in person family visitation.
[2021-12-06] MEDS: Enoxaparin 40 MG/0.4 ML SYR SC (09:55)
[2021-12-06] MEDS: Normal Saline Flush 10 ML SYR IVP ×2 (09:56→16:05)
[2021-12-06] MEDS: Tiotropium Bromide-Respimat 10 PUFF INH 2 PUFF IH (10:32)
--- NOTE | 2021-12-06 11:21 | PTTR_ITS ---
Date of service: 12/06/21 Time of Service: 11:21 PT Notes Visit Reasons: Dry,Gangrene RLE Physical Therapy Inpatient Treatment Note Date: 12/06/2021 Precautions: Fall. Standard. WBAT on R LE with AD. Subjective: Agreeable to PT session.? Objective: General Observation:? Cachexic.? IV in the L UE.? Wound dressing to right foot and ankle.? Wound vacuum in place. Mental Status: Alert and oriented as to person, place, time, and purpose. Able to pay attention, focus, and respond appropriately. Pain: 5-6/10 with ambulation activity Bed Mobility/Transfers: Supine to sit independent Sit to stand independent Stand to sit independent Bed to reclining chair independent Gait: Able to tolerate level surface ambulation of up to 300 feet with WBAT on R LE.? Uses 4-wheeled walker.? Modified independent with 4WW. Instructed on heel- toe gait pattern to allow fro symmetrical gait in B LE. BLESSING EX: Has 100% mastery of her room exercises Balance: Static Sitting: Normal Dynamic Sitting: Normal Static Standing: Fair Dynamic Standing: Fair Assessment: Added resistance exercises to B UE and LE today with good mastery from patient. Patient now modified independent with hallway ambulation of up to 300 feet using 4WW with weight bearing as tolerated on the R LE.?Emphasized the importance of working toward advancing R LE and hitting floor on foot flat this week and then progressing to doing heel strike next week as she is able to tolerate. She is informed that working on spending time with push off on the R ankle will also allow for achievement of normal heel-toe gait pattern as she heals. DISCHARGE RECOMMENDATIONS: [] ? Home with no services [] [] ? Home with services [specify] [X] ? Home with outpatient PT. Patient will benefit from outpatient PT services in order to progress mobility level using least restrictive assistive ambulatory device while progressing mobility level to PLOF that will increase ability of patient to remain at home. [] ? SNF for continued rehabilitation [] [] ? [facility] [] [] ? SNF versus LTC based on ability to participate and progress [] TREATMENT CODE/TIME:? 43640 x 20 minutes , 01103 x 16 minutes beginning at 11:21 AM.
--- NOTE | 2021-12-06 13:37 | W.NUTRFU ---
Date of service: 12/06/21 Time of Service: 13:37 Nutrition Note NOTE: Met with Nicol today. She reports increased appetite with megace order. To have another skin graft this friday. Continues to meet nutrient needs with meal plan. Recommend rechecking pre albumin. Will continue to follow and support. Time Spent in Nutritional Counseling and Treatment: 5
[2021-12-06] MEDS: Gabapentin 300 MG CAP PO (14:11)
[2021-12-06] MEDS: cefTRIAXone 2 GM/50 ML BAG IVPB (16:05)
[2021-12-06 19:35] VITALS: BP 109/70; PULSE 105; RESP 16; TEMP 37.4; O2SAT 99
--- NOTE | 2021-12-06 20:25 | W.PM.PROGNOT ---
Date of Service Date of service: 12/06/21 Time of Service: 10:30 Assessment and Plan Assessment and plan (1) Status post xenograft placement: Status: Acute Assessment and plan: will plan on repeat Xenographing on Friday -splint w/ ortho Patient has been really good about physical therapy in eating. She has been more cooperative with her cares. The wound VAC has become easier to do the changes. -Her IV antibiotics will be completed on 12/15. Nicol and I discussed postop. Expected. She will still have to do regular dressing changes. She will need to be off of her quite. Patient has a lot of psych: Social stressors. She is of great infection she goes home and the fact that her family has a lot of expectations that she will be able to fill them. She also has significant transportation issues and does not know if she can get to the hospital. We discussed pros and cons of her decision. But I think keeping her in the hospital on swing bed status until we have a better take on the graft would be in her best interest. 30 minutes spent discussing direction of care with patient today. (2) COPD (chronic obstructive pulmonary disease): Status: Chronic (3) Hyperthyroidism: Status: Chronic (4) Hypoalbuminemia due to protein-calorie malnutrition: Status: Acute (5) Thyroid nodule: Status: Acute (6) Discharge planning issues: Status: Acute (7) Depression: Status: Chronic (8) Bullous emphysema: Status: Acute (9) Asthma: Status: Chronic Subjective Subjective Interval history since last seen: Pt is doing well. no headaches. No CP or SOB. no productive cough. no dysuria. no leg pain or swelling. pt is focusing on eating high protein diet. She has been up walking. wound vac is in place. She has no diarrhea from the antibiotics. She has no thrush/yeast from the antibiotics. She has no pain or swelling in her calf or thigh. Exam Skin Other: The breakdown on her coccyx has healed Skin no visible ideation wound VAC is clean dry and intact. There is no swelling on the extremity. The foot is warm and pink. Objective Last Vital Signs Temp 36.6 C 12/06/21 07:54 Pulse 106 H 12/06/21 07:54 Resp 16 12/06/21 07:54 BP 111/77 12/06/21 07:54 Pulse Ox 94 12/06/21 07:54
[2021-12-06] MEDS: Gabapentin 300 MG CAP 600 MG PO (21:56)
[2021-12-07] MEDS: metroNIDAZOLE 500 MG/100 ML BAG 100 MG IVPB ×3 (01:37→18:09)
[2021-12-07] MEDS: Normal Saline Flush 10 ML SYR IVP ×2 (01:37→09:53)
[2021-12-07 07:30] VITALS: BP 109/76; PULSE 89; RESP 17; TEMP 37.1; O2SAT 98
[2021-12-07] MEDS: Tiotropium Bromide-Respimat 10 PUFF INH 2 PUFF IH (08:20)
[2021-12-07] MEDS: DULoxetine 20 MG CAP PO ×2 (08:53→20:59)
[2021-12-07] MEDS: methIMAzole 5 MG TAB PO (08:53)
[2021-12-07] MEDS: Acetaminophen 325 MG TAB 650 MG PO ×2 (08:53→16:09)
[2021-12-07] MEDS: Famotidine 20 MG TAB PO ×2 (08:54→20:59)
[2021-12-07] MEDS: Buprenorphine/Naloxone 8 mg/2 mg FILM 2 EACH SL (08:54)
[2021-12-07] MEDS: Buprenorphine/Naloxone 2 mg/0.5 mg FILM 1 EACH SL (08:54)
[2021-12-07] MEDS: Cyanocobalamin 500 MCG TAB 1000 MCG PO (08:54)
[2021-12-07] MEDS: Zinc Sulfate 220 MG TAB PO (08:54)
[2021-12-07] MEDS: Ascorbic Acid 500 MG TAB PO ×2 (08:54→20:59)
[2021-12-07] MEDS: Enoxaparin 40 MG/0.4 ML SYR SC (09:53)
[2021-12-07] MEDS: LORazepam 1 MG TAB PO ×2 (10:00→16:09)
--- NOTE | 2021-12-07 10:04 | PDOC.CMPRO ---
- If Service Date Differs Date of service: 12/07/21 Time of Service: 10:05 Care Management Progress Note S/O: When CM met with Nicol she was sitting up in bed getting ready for her family visit (CM will help facilitate the visit.) Nicol is in good spirits and was doing her hair and make up. Nicol shares that she feels good. She has gained 10lbs during this admission and ambulates independently in her room and in the halls at her leisure. Nicol is anticipating going back to surgery next week. When discussing care needs at home, Nicol shared concerns about managing her wound vac and dressing changes at home due to increased pain during changes and worries about air getting into the tubing which happened to Nicol per her report at 0500 one morning. CM encouraged Nicol to discuss with Dr. Richey and wrote question on her white board to remind her. Nicol shared feelings of wanting to return home, but also wanting to be successful. Undetermined if MD will transition Nicol to SWB1 prior to surgery next week, or not; CM continues to follow. A: 36 year old female admitted to [facility] on 11/13/21 for Dry, Gangrene RLE. P: Nicol will require IV abx and ongoing wound care for gangrenous wound(s) on her right ankle, skin graft surgical intervention took place 11/29/21 and per patient report, was successful. Nicol will transition to SWB1 status when medically ready. CM will continue to coordinate and support in person family visitation.
[2021-12-07] MEDS: Gabapentin 300 MG CAP PO (13:46)
[2021-12-07 14:32] VITALS: BP 105/74; PULSE 98; RESP 16; TEMP 36.7; O2SAT 96
--- NOTE | 2021-12-07 14:45 | W.PM.PROGNOT ---
Date of Service Date of service: 12/07/21 Time of Service: 14:45 Assessment and Plan Assessment and plan (1) Status post xenograft placement: Status: Acute Assessment and plan: -Repeat xenografting planned for Friday with Dr. Richey -Splinting per ortho -Continue high protein diet -Aggressive PT to limit contracture -IV abx will be complete on 12/15 -Supportive care, patient has been progressing nicely with the assistance of all staff involved in her care. She has gained a more positive attitude regarding her current situation which will have a greatly positive effect on her overall healing process and compliance. (2) COPD (chronic obstructive pulmonary disease): Status: Chronic (3) Hyperthyroidism: Status: Chronic (4) Hypoalbuminemia due to protein-calorie malnutrition: Status: Acute (5) Thyroid nodule: Status: Acute (6) Discharge planning issues: Status: Acute (7) Depression: Status: Chronic (8) Bullous emphysema: Status: Acute (9) Asthma: Status: Chronic Subjective Subjective Patient reports: no new complaints and feels better Exam Const General: cooperative, comfortable and no acute distress Nutritional Appearance: cachectic Eyes General: appearance normal, both eyes and all related structures Resp Effort & Inspection: normal respiratory effort, no audible wheezes, not labored and no respiratory distress Skin Wounds: wounds noted (right ankle wound with vac in place, wrapped ) Neuro General: patient alert, patient awake and patient oriented x3 Objective Last Vital Signs Temp 98.1 F 12/07/21 14:32 Pulse 98 H 12/07/21 14:32 Resp 16 12/07/21 14:32 BP 105/74 12/07/21 14:32 Pulse Ox 96 12/07/21 14:32
[2021-12-07] MEDS: cefTRIAXone 2 GM/50 ML BAG IVPB (16:08)
[2021-12-07] MEDS: traMADol 50 MG TAB PO (21:00)
[2021-12-07] MEDS: Gabapentin 300 MG CAP 600 MG PO (21:00)
[2021-12-07 23:48] VITALS: BP 129/87; PULSE 107; RESP 17; TEMP 36.5; O2SAT 97
[2021-12-08] MEDS: LORazepam 1 MG TAB PO ×4 (00:08→22:29)
[2021-12-08] MEDS: metroNIDAZOLE 500 MG/100 ML BAG 100 MG IVPB ×3 (01:53→18:11)
[2021-12-08] MEDS: Normal Saline Flush 10 ML SYR IVP ×4 (01:54→18:12)
[2021-12-08 07:25] VITALS: BP 113/78; PULSE 76; RESP 18; TEMP 36.9; O2SAT 98
[2021-12-08] MEDS: Tiotropium Bromide-Respimat 10 PUFF INH 2 PUFF IH (08:15)
[2021-12-08] MEDS: methIMAzole 5 MG TAB PO (08:45)
[2021-12-08] MEDS: Buprenorphine/Naloxone 2 mg/0.5 mg FILM 1 EACH SL (08:45)
[2021-12-08] MEDS: Buprenorphine/Naloxone 8 mg/2 mg FILM 2 EACH SL (08:45)
[2021-12-08] MEDS: DULoxetine 20 MG CAP PO ×2 (08:46→20:50)
[2021-12-08] MEDS: Zinc Sulfate 220 MG TAB PO (08:46)
[2021-12-08] MEDS: Famotidine 20 MG TAB PO ×2 (08:46→20:50)
[2021-12-08] MEDS: Ascorbic Acid 500 MG TAB PO ×2 (08:46→20:50)
[2021-12-08] MEDS: Cyanocobalamin 500 MCG TAB 1000 MCG PO (08:46)
[2021-12-08] MEDS: traMADol 50 MG TAB PO ×2 (08:58→22:29)
[2021-12-08] MEDS: Enoxaparin 40 MG/0.4 ML SYR SC (10:40)
[2021-12-08] MEDS: Normal Saline 500 ML 30 ML IV (10:41)
[2021-12-08] MEDS: Gabapentin 300 MG CAP PO (13:39)
[2021-12-08 15:20] VITALS: BP 108/73; PULSE 90; RESP 17; TEMP 36.6; O2SAT 98
[2021-12-08] MEDS: cefTRIAXone 2 GM/50 ML BAG IVPB (15:42)
--- NOTE | 2021-12-08 18:32 | W.PM.PROGNOT ---
Date of Service Date of service: 12/08/21 Time of Service: 18:32 Assessment and Plan Assessment and plan (1) Status post xenograft placement: Status: Acute Assessment and plan: -Wound vac scheduled to be changed tomorrow -Repeat xenografting planned for Friday with Dr. Richey -Splinting per ortho, has exposed tendon -Continue high protein diet -Aggressive PT to limit contracture -IV abx will be complete on 12/15 -Supportive care, patient has been progressing nicely with the assistance of all staff involved in her care. She has gained a more positive attitude regarding her current situation which will have a greatly positive effect on her overall healing process and compliance. (2) COPD (chronic obstructive pulmonary disease): Status: Chronic (3) Hyperthyroidism: Status: Chronic (4) Hypoalbuminemia due to protein-calorie malnutrition: Status: Acute (5) Thyroid nodule: Status: Acute (6) Discharge planning issues: Status: Acute (7) Depression: Status: Chronic (8) Bullous emphysema: Status: Acute (9) Asthma: Status: Chronic Subjective Subjective Patient reports: no new complaints and pain is less Exam Const General: cooperative, comfortable and no acute distress Nutritional Appearance: cachectic Eyes General: appearance normal, both eyes and all related structures Resp Effort & Inspection: normal respiratory effort, no audible wheezes, not labored and no respiratory distress Skin Wounds: wounds noted (right ankle wound with vac in place, wrapped ) Neuro General: patient alert, patient awake and patient oriented x3 Objective Last Vital Signs Temp 97.9 F 12/08/21 15:20 Pulse 90 12/08/21 15:20 Resp 17 12/08/21 15:20 BP 108/73 12/08/21 15:20 Pulse Ox 98 12/08/21 15:20
[2021-12-08] MEDS: Gabapentin 300 MG CAP 600 MG PO (22:29)
[2021-12-08 23:53] VITALS: BP 113/75; PULSE 96; RESP 18; TEMP 36.6; O2SAT 96
[2021-12-09] MEDS: metroNIDAZOLE 500 MG/100 ML BAG 100 MG IVPB ×3 (01:30→18:26)
[2021-12-09] MEDS: Normal Saline Flush 10 ML SYR IVP ×4 (01:36→18:26)
[2021-12-09 08:15] VITALS: BP 112/74; PULSE 64; RESP 17; TEMP 36.8; O2SAT 100
[2021-12-09] MEDS: Famotidine 20 MG TAB PO ×2 (08:25→20:59)
[2021-12-09] MEDS: Buprenorphine/Naloxone 8 mg/2 mg FILM 2 EACH SL (08:25)
[2021-12-09] MEDS: Zinc Sulfate 220 MG TAB PO (08:25)
[2021-12-09] MEDS: LORazepam 1 MG TAB PO ×2 (08:25→22:24)
[2021-12-09] MEDS: methIMAzole 5 MG TAB PO (08:25)
[2021-12-09] MEDS: Buprenorphine/Naloxone 2 mg/0.5 mg FILM 1 EACH SL (08:25)
[2021-12-09] MEDS: Cyanocobalamin 500 MCG TAB 1000 MCG PO (08:25)
[2021-12-09] MEDS: DULoxetine 20 MG CAP PO ×2 (08:25→20:59)
[2021-12-09] MEDS: Ascorbic Acid 500 MG TAB PO ×2 (08:26→21:00)
[2021-12-09] MEDS: Tiotropium Bromide-Respimat 10 PUFF INH 2 PUFF IH (09:37)
[2021-12-09] MEDS: Enoxaparin 40 MG/0.4 ML SYR SC (10:17)
[2021-12-09] MEDS: Normal Saline 500 ML 30 ML IV (10:17)
[2021-12-09] MEDS: traMADol 50 MG TAB 150 MG PO (10:59)
[2021-12-09] MEDS: LORazepam 2 MG/ML VIAL 1 MG IVP (12:16)
[2021-12-09] MEDS: traMADol 50 MG TAB PO ×2 (12:16→23:39)
--- NOTE | 2021-12-09 12:45 | WOUNDCONS ---
- If Service Date Differs Date of service: 12/09/21 Time of Service: 12:45 Wound Initial Evaluation Narrative: Photos taken during dressing change on 12/09/21.
[2021-12-09] MEDS: Gabapentin 300 MG CAP PO (13:59)
--- NOTE | 2021-12-09 15:20 | W.PM.PROGNOT ---
Date of Service Date of service: 12/09/21 Time of Service: 15:20 Assessment and Plan Assessment and plan (1) Status post xenograft placement: Status: Acute Assessment and plan: -Wound vac changed today, excellent granulation tissue -Repeat xenografting planned for Friday with Dr. Richey -Splinting per ortho -Continue high protein diet -Aggressive PT to limit contracture -IV abx will be complete on 12/15 -Supportive care, patient was less interactive today possibly because of wound vac change and increased pain as a result of that. (2) COPD (chronic obstructive pulmonary disease): Status: Chronic (3) Hyperthyroidism: Status: Chronic (4) Hypoalbuminemia due to protein-calorie malnutrition: Status: Acute (5) Thyroid nodule: Status: Acute (6) Discharge planning issues: Status: Acute (7) Depression: Status: Chronic (8) Bullous emphysema: Status: Acute (9) Asthma: Status: Chronic Subjective Subjective Patient reports: no new complaints and tolerating a regular diet; denies nausea, vomiting or fever Exam Const General: cooperative, comfortable and no acute distress Nutritional Appearance: cachectic Eyes General: appearance normal, both eyes and all related structures Resp Effort & Inspection: normal respiratory effort, no audible wheezes, not labored and no respiratory distress Skin Wounds: wounds noted (right ankle wound with vac changed, wound with excellent granulation tissue) Neuro General: patient alert, patient awake and patient oriented x3 Objective Last Vital Signs Temp 98.2 F 12/09/21 08:15 Pulse 64 12/09/21 08:15 Resp 17 12/09/21 08:15 BP 112/74 12/09/21 08:15 Pulse Ox 100 12/09/21 08:15
[2021-12-09 15:40] VITALS: BP 112/71; PULSE 89; RESP 15; TEMP 36.1; O2SAT 98
[2021-12-09] MEDS: cefTRIAXone 2 GM/50 ML BAG IVPB (16:20)
[2021-12-09] MEDS: Gabapentin 300 MG CAP 600 MG PO (23:39)
[2021-12-09 23:49] VITALS: BP 120/80; PULSE 90; RESP 16; TEMP 36.4; O2SAT 97
[2021-12-10] MEDS: metroNIDAZOLE 500 MG/100 ML BAG 100 MG IVPB ×3 (02:30→18:43)
[2021-12-10 07:03] LABS: Abs Immature Grans 0.05 10^3/uL (0.0-0.06); Absolute Basophil Count 0.08 10^3/uL (0.0-0.2); Absolute Eosinophil Count 0.29 10^3/uL (0.0-0.7); Absolute Neutrophil Count 8.82 10^3/uL (1.2-6.7); Basophils % 0.6; Eosinophils % 2.3; HCT 36.6 % (36.0-46.0); HGB 11.3 g/dL (11.2-15.7); Immature Grans % 0.4; Lymphocytes % 19.9; MCH 28.7 pg (27.0-33.0); MCHC 30.9 % (32.0-36.0); MCV 92.9 fL (80-95); MPV 9.5 fL (8.0-11.0); Monocytes % 6.5; Neutrophils % 70.3; Nucleated RBC 0 %; Platelet Count 447 10^3/uL (130-400); RBC 3.94 10^6/uL (3.93-5.22); RDW 20.5 % (11.7-14.6); RDW-SD 70.7 fL; WBC 12.54 10^3/uL (4.4-10.8)
[2021-12-10 07:14] LABS: Absolute Monocyte Count 0.82 10^3/uL (0.1-0.8)
[2021-12-10 07:21] LABS: Anisocytosis 2+; Diff Comment RBC Morph Reviewed
[2021-12-10 07:23] LABS: Total Protein 7.6 g/dL (6.4-8.2)
[2021-12-10 07:34] LABS: D-Dimer 508 ng/mlFEU (<500); Ferritin 397 ng/mL (8-252); TSH (W/Ref FT4) 0.02 uIU/mL (0.36-3.74)
[2021-12-10 07:52] LABS: C-Reactive Protein 0.09 mg/dL (0.0-0.3); FREE T4 0.85 ng/dL (0.76-1.46)
[2021-12-10] MEDS: Tiotropium Bromide-Respimat 10 PUFF INH 2 PUFF IH (08:07)
[2021-12-10] MEDS: Enoxaparin 40 MG/0.4 ML SYR SC (11:09)
[2021-12-10] MEDS: traMADol 50 MG TAB 150 MG PO (11:10)
[2021-12-10] MEDS: Cyanocobalamin 500 MCG TAB 1000 MCG PO (11:10)
[2021-12-10] MEDS: Zinc Sulfate 220 MG TAB PO (11:10)
[2021-12-10] MEDS: Famotidine 20 MG TAB PO ×2 (11:10→21:28)
[2021-12-10] MEDS: methIMAzole 5 MG TAB PO (11:10)
[2021-12-10] MEDS: Ascorbic Acid 500 MG TAB PO ×2 (11:10→21:28)
[2021-12-10] MEDS: DULoxetine 20 MG CAP PO ×2 (11:11→21:28)
[2021-12-10] MEDS: Normal Saline Flush 10 ML SYR IVP (11:11)
[2021-12-10] MEDS: Buprenorphine/Naloxone 8 mg/2 mg FILM 2 EACH SL (11:11)
[2021-12-10] MEDS: Buprenorphine/Naloxone 2 mg/0.5 mg FILM 1 EACH SL (11:12)
[2021-12-10] MEDS: LORazepam 1 MG TAB PO ×3 (11:23→23:15)
--- NOTE | 2021-12-10 11:32 | PDOC.CMPRO ---
- If Service Date Differs Date of service: 12/10/21 Time of Service: 11:32 Care Management Progress Note S/O: Nicol was ambulating through the hallways on her scooter, independently. She has gained 10lbs during this admission and ambulates independently in her room and in the halls at her leisure. Nicol is anticipating going back to surgery next week. When discussing care needs at home, Nicol shared concerns about managing her wound vac and dressing changes at home due to increased pain during changes and worries about air getting into the tubing which happened to Nicol per her report at 0500 one morning. CM encouraged Nicol to discuss with Dr. Richey and wrote question on her white board to remind her. Nicol shared feelings of wanting to return home, but also wanting to be successful. Undetermined if MD will transition Nicol to SWB1 prior to surgery next week, or not; CM continues to follow. A: 36 year old female admitted to [facility] on 11/13/21 for Dry, Gangrene RLE. P: Nicol will require IV abx and ongoing wound care for gangrenous wound(s) on her right ankle, skin graft surgical intervention took place 11/29/21 and per patient report, was successful. Nicol will transition to SWB1 status when medically ready. CM will continue to coordinate and support in person family visitation.
[2021-12-10 11:34] VITALS: BP 107/75; PULSE 93; RESP 16; TEMP 37; O2SAT 99
--- NOTE | 2021-12-10 13:01 | PT.INPN ---
Date of service: 12/10/21 Time of Service: 13:01 PT Notes Visit Reasons: Dry,Gangrene RLE Physical Therapy Inpatient Progress Note Date: 12/10/2021 Dates of service: 11/03/2021 through 12/10/2021 Precautions: Fall. Standard. NWB on R LE until clearance from surgeon is received. Hold off on exercises at the ankle until clearance from surgeon is received. Subjective: Agreeable to PT session.? Objective: General Observation:? Cachexic.? IV in the L UE.? Wound dressing to right foot and ankle.? Wound vacuum in place. Mental Status: Alert and oriented as to person, place, time, and purpose. Able to pay attention, focus, and respond appropriately. Pain: 6-7/10 with ambulation activity ROM: Right Upper Extremity: ? Shoulder Flexion WFL. Shoulder abduction WFL. Elbow flexion WFL. Wrist flexion WFL. Functional opening and closing of hand WFL. Left Upper Extremity:? Shoulder Flexion WFL. Shoulder abduction WFL. Elbow flexion WFL. Wrist flexion WFL. Functional opening and closing of hand WFL. Right Lower Extremity: Hip flexion WFL. Hip abduction WFL. Knee flexion WFL. Ankle dorsiflexion NT. Ankle plantarflexion less than NT.? Full flexion WFL.? Full extension WFL. Left Lower Extremity:? Hip flexion WFL. Hip abduction WFL. Knee flexion WFL. Ankle dorsiflexion WFL. Ankle plantarflexion WFL. Strength: Right Upper Extremity: Shoulder flexors 4-/5. Shoulder abductors 4-/5. Elbow flexors 4-/5. Elbow extensors 4-/5. Tug Boat Captain strong. Left Upper Extremity: Shoulder flexors 4-/5. Shoulder abductors 4-/5. Elbow flexors 4-/5. Elbow extensors 4-/5. Tug Boat Captain strong. Right Lower Extremity: Hip flexors 4-/5. Hip abductors 4-/5. Knee flexors 4-/5. Knee extensors 4-/5. Ankle dorsiflexors 1/5. Ankle plantarflexors 1/5.? Toe flexion 4/5.? Toe extension 4/5. Left Lower Extremity: Hip flexors 4-/5. Hip abductors 4-/5. Knee flexors 4-/5. Knee extensors 4-/5. Ankle dorsiflexors 4-/5. Ankle plantarflexors 4-/5. Bed Mobility/Transfers: Supine to sit independent Sit to stand independent Stand to sit independent Bed to reclining chair independent Gait: Able to tolerate level surface ambulation of up to 300 feet x 2 NWB on R LE due to new allograft.? Uses 4 wheeled walker.? Only needs standby assist.? THERA EX: Continued to reinforce R LE range of motion exercises to minimize contracture formation and facilitate granulation tissue formation. Balance: Static Sitting: Normal Dynamic Sitting: Normal Static Standing: Fair Dynamic Standing: Fair Special Tests: Mobility Limitations Standardized Measure [facility] AM-PAC 6 clicks Basic Mobility Inpatient Short Form: Raw Score: 23?? CMS Score: 11% deficit? ? ? Informed Consent/Education:? Patient was instructed in purpose of PT consult and plan of care. Agreeable to proceed with established PT POC to achieve personal goals. Assessment: WBAT on the R LE. Needscontinued services to progress WB and cueing to facilitate heel-toe gait pattern as well as full ankle AROM. . Modified independent in the hallway with 4WW. Patient presents with clinical signs and symptoms consistent with current/admitting diagnoses that have resulted to mobility limitations, gait instability, generalized weakness, and overall ADL decline as demonstrated by the following impairment level findings: 1.? Decreased strength to B ankle major muscle groups 2.? Impaired standing balance 3.? Impaired activity tolerance 4.? Limitation of joint range of motion in R ankle 5.? Pain in R ankle at rest and with movement 6.? Swelling in R foot and toes Impairments are contributing to the following functional limitations: 1.? Decline in bed mobility skills 2.? Decline in transfer skills 3.? Difficulty with ambulation without assistive device and physical assistance 4.? Increased completion time for mobility ADL performance 5.? Increased risk for falls 6.? Difficulty with managing steps alone safely Patient is assessed as a 25020 moderate complexity based on the following: History: 36-year-old femalewith past medical history as indicated above Examination: Demonstrable impairment in strength, balance, and mobility level with underlying impairments and functional limitations as exhibited above as well as deficit score of 36% utilizing the [facility] Mobility Inpatient Short Form Presentation:? Evolving Decision Makin moderate complexity Goals: Goals X1 week 1. Supine-Sit independent MET 2. Sit-Supine independent MET 3. Sit-Stand independent MET 4. Stand-Sit independent with FWW MET 5. Bed-Chair independent with FWW MET 6. Chair-Bed independent with FWW MET 7. Independent gait on level surface with use of FWW for at least 500 feet without report of pain nor dyspnea NOT MET, CONTINUE 8. Independent stair negotiation while holding onto no rails for at least 6 steps without report of pain nor dyspnea NOT MET, CONTINUE 9. Independent with home exercise program NOT MET, CONTINUE 10. Good static and dynamic standing balance/tolerance NOT MET, CONTINUE Plan of Care/Treatment Plan: 1-2x/day, 7 days/week x 1 week. Plan of care has been reviewed with the MANUFACTURING SYSTEMS ENGINEER providing the service under Physical Therapy direction. Initiate Physical Therapy intervention for pain management as needed, strengthening, bed mobility, transfers, gait, stairs, balance training, and use of assistive device. DISCHARGE RECOMMENDATIONS: [] ? Home with no services [] [] ? Home with services [specify] [X] ? Home with outpatient PT. Patient will benefit from outpatient PT services in order to progress mobility level using least restrictive assistive ambulatory device while progressing mobility level to PLOF that will increase ability of patient to remain at home. [] ? SNF for continued rehabilitation [] [] ? Residential Care [] [] ? SNF versus LTC based on ability to participate and progress [] TREATMENT CODE/TIME:? 70723 x 16 minutes beginning at 13:01 PM. Thank you for the opportunity to participate in the care of this patient. Funmi Castañeda PT, DPT, CLT [facility] [place], [place]
--- NOTE | 2021-12-10 14:09 | ANES.PREOP_ITS ---
General Info Date of Service Date Performed: 12/11/21 Height: 4 ft 11.84 in Weight: 38.55 kg Body Mass Index (BMI): 16.7 Surgical Procedure: Operation Date: 11/13/21 17:10 Proposed Procedure Side Surgeon p Debridement Foot/Leg Susana Richey, DO Actual Procedure Side Surgeon p Irrigation & Debridement of Ankle/Foot Wound Right Susana Richey, DO Pre-Op Diagnosis Post-Op Diagnosis WOUND OF RIGHT ANKLE/FOOT WOUND OF RIGHT ANKLE/FOOT Operation Date: 11/15/21 12:10 Proposed Procedure Side Surgeon p Washout, possible Debridement, Dressing Change Susana Richey, DO Actual Procedure Side Surgeon p IRRIGATION & DEBRIDEMENT OF FOOT WOUND WITH DRESSING CHANGE Right Susana Richey, Pre-Op Diagnosis Post-Op Diagnosis RIGHT ANKLE/FOOT WOUND debridement RIGHT ANKLE/FOOT WOUND debridement Operation Date: 11/29/21 13:10 Proposed Procedure Side Surgeon p Skin Graft Susana Richey, DO Actual Procedure Side Surgeon p Skin Graft Right Susana Richey, Pre-Op Diagnosis Post-Op Diagnosis Dry,Gangrene RLE Dry,Gangrene RLE Operation Date: 12/11/21 07:40 Proposed Procedure Side Surgeon radha Skin Graft Susana Richey, Meds Allergies and Home Medications Allergies Allergy/AdvReac Type Severity Reaction Status Date / Time Penicillins Allergy Unknown Hives Verified 11/13/21 14:49 Home Medication Medication Instructions Recorded levonorgestrel 20 mcg/24 hours (7 1 unit IU DAILY 08/22/15 yrs) 52 mg intrauterine device (Mirena) ferrous gluconate 324 mg (38 mg 324 mg PO DAILY 11/13/21 iron) tablet propranolol 20 mg tablet 20 mg PO BID 11/13/21 buprenorphine 2 mg-naloxone 0.5 mg 1 film SUBLINGUAL DAILY 11/14/21 sublingual film (Suboxone) buprenorphine 8 mg-naloxone 2 mg 2 film SUBLINGUAL DAILY 11/14/21 sublingual film (Suboxone) Current Visit Medications: Current Medications Generic Name Dose Route Start Last Admin Trade Name Freq PRN Reason Stop Dose Admin Acetaminophen 650 mg 11/14/21 14:02 12/07/21 16:09 Acetaminophen 325 Mg Tab PO 650 mg Q6H PRN PRN Administration Albuterol Sulfate 2.5 mg 11/13/21 15:30 Albuterol 2.5 Mg/3 Ml Inh Soln Vial UPD Q4H PRN PRN Ascorbic Acid 500 mg 11/13/21 20:00 12/10/21 11:10 Ascorbic Acid 500 Mg Tab PO 500 mg BID HANSA Administration Buprenorphine/Naloxone 2 each 11/15/21 08:30 12/10/21 11:11 Buprenorphine/Naloxone 8 Mg/2 Mg Film SL 2 each DAILY HANSA Administration Buprenorphine/Naloxone 1 each 11/15/21 08:30 12/10/21 11:12 Buprenorphine/Naloxone 2 Mg/0.5 Mg Film SL 1 each DAILY HANSA Administration Cyanocobalamin 1,000 mcg 11/15/21 08:30 12/10/21 11:10 Cyanocobalamin 500 Mcg Tab PO 1,000 mcg DAILY HANSA Administration Duloxetine HCl 20 mg 11/30/21 20:00 12/10/21 11:11 Duloxetine 20 Mg Cap PO 20 mg BID HANSA Administration Enoxaparin Sodium 40 mg 11/14/21 10:00 12/10/21 11:09 Enoxaparin 40 Mg/0.4 Ml Syr SC 40 mg Q24H HANSA Administration Famotidine 20 mg 11/18/21 20:00 12/10/21 11:10 Famotidine 20 Mg Tab PO 20 mg BID HANSA Administration Gabapentin 600 mg 11/23/21 22:00 12/09/21 23:39 Gabapentin 300 Mg Cap PO 600 mg HS HANSA Administration Gabapentin 300 mg 11/24/21 14:00 12/09/21 13:59 Gabapentin 300 Mg Cap PO 300 mg DAILY@1400 HANSA Administration Hydroxyzine Pamoate 25 mg 11/13/21 18:21 11/30/21 14:43 Hydroxyzine Pamoate 25 Mg Cap PO 25 mg TID PRN PRN Administration Sodium Chloride 500 mls @ 0 mls/hr 11/13/21 15:30 12/09/21 21:28 Saline 500ml Bag IV 0 mls/hr PRN PRN Infusion As Directed Ceftriaxone Sodium/Dextrose 2 gm in 50 mls @ 100 mls/hr 11/22/21 16:00 12/09/21 16:20 Rocephin IVPB 100 mls/hr Q24H HANSA Administration Metronidazole 500 mg in 100 mls @ 100 mls/hr 11/23/21 10:00 12/10/21 11:23 Flagyl IVPB 100 mls/hr Q8H HANSA Administration IV Miscellaneous Supplies 1 each 11/13/21 15:30 Iv Access IV DIRECTED HANSA Lactobacillus Acidophilus/Casei 1 cap 11/14/21 08:30 12/10/21 11:10 L. Acidophilus, Casei, Rhamnosus Cap PO 1 cap DAILY HANSA Administration Lidocaine HCl 50 ml 11/16/21 16:00 12/10/21 11:11 Lidocaine 4% Topical Solution 50 Ml Btl MM 50 ml DIRECTED HANSA Administration Lorazepam 1 mg 11/19/21 10:30 12/10/21 11:24 Lorazepam 2 Mg/Ml Vial IVP Not Given MOFR@1030 HANSA Lorazepam 1 mg 11/30/21 13:29 12/10/21 11:23 Lorazepam 1 Mg Tab PO 1 mg TID PRN PRN Administration Megestrol Acetate 80 mg 11/24/21 08:30 12/10/21 11:09 Megestrol 40 Mg Tab PO 80 mg QID HANSA Administration Methimazole 5 mg 11/16/21 08:30 12/10/21 11:10 Methimazole 5 Mg Tab PO 5 mg DAILY HANSA Administration Multi-Ingredient Supplement 1 ounce 11/13/21 20:00 12/10/21 11:12 Protein Nutritional Supplement 16 Gm 1 Ounce Packet PO Not Given TID HANSA Nicotine 1 cartridge 11/13/21 18:21 11/18/21 13:12 Nicotine 10 Mg/Cartridge 30 Cart/Pkg IH 1 cartridge Q2H PRN PRN Administration Ondansetron HCl 4 mg 11/13/21 16:43 Ondansetron 4 Mg/2 Ml Vial IVP Q4H PRN PRN Polyethylene Glycol 17 gm 11/13/21 17:07 Polyethylene Glycol 3350 17 Gm Packet PO DAILY PRN PRN Sodium Chloride 0 ml 11/13/21 15:30 12/10/21 11:11 Normal Saline Flush 10 Ml Syr IVP 10 ml PRN PRN Administration Sodium Chloride 4 ml 11/28/21 08:30 12/10/21 11:13 Sodium Chloride 7% For Inhalation 4 Ml Vial IH Not Given BID HANSA Tiotropium [place] 2 puff 11/29/21 08:30 12/10/21 08:07 Tiotropium [place]-Respimat 10 Puff Inh IH 2 inh DAILY HANSA Administration Tramadol HCl 150 mg 11/19/21 10:45 12/10/21 11:10 Tramadol 50 Mg Tab PO 150 mg MOFR@1000 HANSA Administration Tramadol HCl 50 mg 11/26/21 22:00 12/09/21 23:39 Tramadol 50 Mg Tab PO 50 mg HS HANSA Administration Tramadol HCl 50 mg 11/27/21 08:30 12/09/21 12:16 Tramadol 50 Mg Tab PO 50 mg SuTuWeThSa HANSA Administration Zinc Sulfate 220 mg 11/14/21 08:30 12/10/21 11:10 Zinc Sulfate 220 Mg Tab PO 220 mg DAILY HANSA Administration PFSH Active Problems Active Problems: Problem Status Onset Code Thyroid nodule E04.1 Status post xenograft placement Z98.890 COPD (chronic obstructive pulmonary disease) J44.9 Bullous emphysema J43.9 Bronchiectasis J47.9 DVT prophylaxis Z29.9 Discharge planning issues Z02.9 Depression F32.A Dry gangrene I96 Hyperthyroidism E05.90 Hypoalbuminemia due to protein-calorie malnutrition E88.09, E46 Smoker unmotivated to quit F17.200 Asthma J45.909 Medical History Medical History (Updated 12/06/21 @ 20:31 by Susana Richey DO) Hypokalemia due to loss of potassium Narcotic abuse in remission Surgical History Surgical History (Updated 11/29/21 @ 22:08 by Susana Richey DO) History of adenoidectomy S/p bilateral myringotomy with tube placement Tobacco Smoking/Tobacco Use Status: Current every day Tobacco Type: cigarettes Smoking cigarettes per day: 10 Alcohol Alcohol Intake: never Substance Use Substance use: Current Sobriety Substance use type: former substance user Vital Signs and Lab Results Vital Signs Most Recent Vital Signs in EMR: Most Recent Vital Signs Temp Pulse Resp BP Pulse Ox 37 C 93 H 16 107/75 99 12/10/21 11:34 12/10/21 11:34 12/10/21 11:34 12/10/21 11:34 12/10/21 11:34 Point of Care Results Point of Care Results: POC- Test(urine) Negative 11/13/21 11:13 Lab Results Result Diagrams: 12/10/21 06:30 12/03/21 07:19 Blood Type / Crossmatch: Patient ABO/Rh O Negative 11/23/21 Antibody Screen NEGATIVE 11/23/21 Complete Blood Count: White Blood Count 12.54 10^3/uL (4.4-10.8) H 12/10/21 06:30 12/10/21 Red Blood Count 3.94 10^6/uL (3.93-5.22) 12/10/21 06:30 12/10/21 Hemoglobin 11.3 g/dL (11.2-15.7) 12/10/21 06:30 12/10/21 Hematocrit 36.6 % (36.0-46.0) 12/10/21 06:30 12/10/21 Platelet Count 447 10^3/uL (130-400) H 12/10/21 06:30 12/10/21 Venous Blood Lactate 1.6 mmol/L (0.6-1.4) H 11/13/21 10:10 11/13/21 Complete Metabolic Panel: Sodium Level 140 mmol/L (136-145) 12/03/21 07:19 12/03/21 Potassium Level 4.1 mmol/L (3.5-5.1) 12/03/21 07:19 12/03/21 Chloride Level 106 mmol/L (98-107) 12/03/21 07:19 12/03/21 Carbon Dioxide Level 25.4 mmol/L (21.0-32.0) 12/03/21 07:12/03/21 Blood Urea Nitrogen 17 mg/dL (7-18) 12/03/21 07:19 12/03/21 Creatinine 0.7 mg/dL (0.55-1.02) 12/03/21 07:12/03/21 Estimated GFR/1.73 m2 >= 60.00 (mL/min/1.73m2) 12/03/21 07:19 12/03/21 Magnesium Level 2.1 mg/dL (1.8-2.4) 12/03/21 07:12/03/21 Calcium Level 9.0 mg/dL (8.5-10.1) 12/03/21 07:19 12/03/21 Albumin 1.9 g/dL (3.4-5.0) L 11/26/21 07:30 11/26/21 Glucose Level 93 mg/dL (74-106) 12/03/21 07:12/03/21 Hemoglobin A1c 5.1 % (<5.7) 11/13/21 10:10 11/13/21 C-Reactive Protein 0.09 mg/dL (0.0-0.3) 12/10/21 06:30 12/10/21 Liver Function Panel: Alanine Aminotransferase (ALT/SGPT) 12 U/L (14-59) L 11/26/21 07:30 11/26/21 Aspartate Amino Transf (AST/SGOT) 19 U/L (15-37) 11/26/21 07:30 11/26/21 Gamma Glutamyl Transpeptidase 34 U/L (5-55) 11/13/21 14:25 11/13/21 Coagulation Panel: D-Dimer 508 ng/mlFEU (<500) H 12/10/21 06:30 12/10/21 Cardiac Panel: No Data to Display Arterial Blood Gas: No Data to Display Venous Blood Gas: No Data to Display Pancreas Panel: No Data to Display Thyroid Panel: Thyroid Stimulating Hormone (TSH) 0.02 uIU/mL (0.36-3.74) L 12/10/21 06:30 12/10/21 Total Triiodothyronine 170 ng/dL (97-169) H 12/10/21 06:30 12/10/21 Infectious Disease: Coronavirus (COVID-19)(PCR) Negative (Negative) 11/13/21 13:12 11/13/21 Coronavirus 2019 Source NASAL 11/13/21 13:12 11/13/21 HIV (1&2) Ag and Ab, 4th Generation Negative (Negative) 11/14/21 06:35 11/14/21 Hepatitis B Surface Antigen Negative (Negative) 11/14/21 06:35 11/14/21 Hepatitis C Antibody Negative (Negative) 11/14/21 06:35 11/14/21 Blood Cultures: No Data to Display Toxicology Panel: Urine Amphetamines Screen Negative (Negative) 11/13/21 13:47 11/13/21 Urine Benzodiazepines Screen Negative (Negative) 11/13/21 13:47 11/13/21 Urine Barbiturates Screen Negative (Negative) 11/13/21 13:47 11/13/21 Urine Cocaine Screen Negative (Negative) 11/13/21 13:47 11/13/21 Urine Methadone Screen Negative (Negative) 11/13/21 13:47 11/13/21 Urine Opiates Screen Negative (Negative) 11/13/21 13:47 11/13/21 Ur Tricyclic Antidepressants Screen Negative (Negative) 11/13/21 13:47 11/13/21 Ur Tetrahydrocannabinol (THC) Scrn Negative (Negative) 11/13/21 13:47 11/13/21 Panel: No Data to Display Imaging and Studies Imaging and Studies Study information below may be from another EMR and interpreted by another provider. Please see original notes in EMR for more complete details. 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) Family History: No Family History of Anesthesia Complications Exercise Tolerance Exercise Tolerance: Metabolic Equivalents>4 Cardiac & Pulmonary Exam Cardiac Exam: Normal S1/S2 Heart Sounds Pulmonary Exam: Clear Bilateral Breath Sounds Implantable Cardiac Device Does patient have a Pacemaker or an ICD?: No Airway Exam Known Difficult Airway: No Mallampati Class: 2 Mouth Opening: Normal (> 3cm) Thyromental Distance: Greater than 3 cm Neck Range of Motion: Full ROM Neck Circumference: Normal Teeth Condition: Generalized Poor Dentition and Loose or Chipped Airway Comments: most teeth are chipped, many missing, denies loose. ASA Classification ASA Score: ASA 3 Emergency Case?: No NPO Status NPO Status: NPO Clears >2 hours, Solids >8 hours Status Status: Negative HCG Anesthesia Plan Resuscitation Status: Full Code Anesthesia Technique: Spinal Anesthesia Airway Planned: Natural Airway Monitors Used: Standard Monitors Preoperative Comments:: 36 yo female with leg/ankle wound with grafting, to OR f or further grafting. Sig PMHx: asthma/copd, opioid dependence (suboxone), anxiety (loraz), smoker Currently inpt, lovenox 40 daily at 1000 (MAR confirmed, last dose 12/10/20). Multiple previous spinals without issues, would like spinal today and to be awake, but with some sedation.
--- NOTE | 2021-12-10 14:14 | W.PM.PROGNOT ---
Date of Service Date of service: 12/10/21 Time of Service: 14:14 Assessment and Plan Assessment and plan (1) Status post xenograft placement: Status: Acute Assessment and plan: -Wound vac in place -Repeat xenografting planned for Friday with Dr. Richey -Splinting per ortho -Continue high protein diet -Aggressive PT to limit contracture -IV abx will be complete on 12/15 -Supportive care, patient was less interactive today possibly because of wound vac change and increased pain as a result of that. (2) COPD (chronic obstructive pulmonary disease): Status: Chronic (3) Hyperthyroidism: Status: Chronic (4) Hypoalbuminemia due to protein-calorie malnutrition: Status: Acute (5) Thyroid nodule: Status: Acute (6) Discharge planning issues: Status: Acute (7) Depression: Status: Chronic (8) Bullous emphysema: Status: Acute (9) Asthma: Status: Chronic Subjective Subjective Interval history since last seen: Nicol is doing well. She is walking around. She doesn't complain of pain Exam HENMT Head: normocephalic and atraumatic Resp Effort & Inspection: normal respiratory effort Extrem Other: dressing intact. Wound vac in place Objective Last Vital Signs Temp 98.6 F 12/10/21 11:34 Pulse 93 H 12/10/21 11:34 Resp 16 12/10/21 11:34 BP 107/75 12/10/21 11:34 Pulse Ox 99 12/10/21 11:34 Laboratory Results - last 24 hr 12/10/21 12/10/21 12/10/21 06:30 06:30 06:30 WBC 12.54 H RBC 3.94 Hgb 11.3 Hct 36.6 MCV 92.9 MCH 28.7 MCHC 30.9 L RDW 20.5 H Plt Count 447 H D MPV 9.5 Immature Gran % 0.4 Neutrophils % 70.3 Band Neutrophils % Lymphocytes % 19.9 Atypical Lymphs % Monocytes % 6.5 Eosinophils % 2.3 Basophils % 0.6 Metamyelocytes % Myelocytes % Promyelocytes % Other Cells % Nucleated RBC % 0 Absolute Neutrophils 8.82 H Absolute Lymphocytes 2.50 Absolute Monocytes 0.82 H Absolute Eosinophils 0.29 Absolute Basophils 0.08 RBC Morphology See Below Polychromasia Hypochromasia Poikilocytosis Basophilic Stippling Anisocytosis 2+ Microcytosis Macrocytosis Spherocytes Tear Drop Cells Ovalocytes Stomatocytes [place] Bodies [place] Cells/Echinocytes Acanthocytes (Spur) Schistocytes D-Dimer Ferritin 397 H C-Reactive Protein 0.09 Total Protein 7.6 TSH 0.02 L Free T4 0.85 12/10/21 12/10/21 06:30 Unknown WBC Cancelled RBC Cancelled Hgb Cancelled Hct Cancelled MCV Cancelled MCH Cancelled MCHC Cancelled RDW Cancelled Plt Count Cancelled MPV Cancelled Immature Gran % Cancelled Neutrophils % Cancelled Band Neutrophils % Cancelled Lymphocytes % Cancelled Atypical Lymphs % Cancelled Monocytes % Cancelled Eosinophils % Cancelled Basophils % Cancelled Metamyelocytes % Cancelled Myelocytes % Cancelled Promyelocytes % Cancelled Other Cells % Cancelled Nucleated RBC % Cancelled Absolute Neutrophils Cancelled Absolute Lymphocytes Cancelled Absolute Monocytes Cancelled Absolute Eosinophils Cancelled Absolute Basophils Cancelled RBC Morphology Cancelled Polychromasia Cancelled Hypochromasia Cancelled Poikilocytosis Cancelled Basophilic Stippling Cancelled Anisocytosis Cancelled Microcytosis Cancelled Macrocytosis Cancelled Spherocytes Cancelled Tear Drop Cells Cancelled Ovalocytes Cancelled Stomatocytes Cancelled [place] Bodies Cancelled [place] Cells/Echinocytes Cancelled Acanthocytes (Spur) Cancelled Schistocytes Cancelled D-Dimer 508 H Ferritin C-Reactive Protein Total Protein TSH Free T4
[2021-12-10 15:14] VITALS: BP 107/73; PULSE 116; RESP 16; TEMP 36.7; O2SAT 96
[2021-12-10] MEDS: cefTRIAXone 2 GM/50 ML BAG IVPB (15:24)
[2021-12-10] MEDS: Gabapentin 300 MG CAP PO (15:25)
[2021-12-10 17:48] LABS: T3, Total 170 ng/dL (97-169)
[2021-12-10] MEDS: Gabapentin 300 MG CAP 600 MG PO (21:28)
[2021-12-10] MEDS: Protein Nutritional Supplement 16 GM 1 OUNCE PACKET PO (21:28)
[2021-12-10] MEDS: traMADol 50 MG TAB PO (21:29)
[2021-12-10 22:40] VITALS: BP 109/74; PULSE 94; RESP 16; TEMP 36.7; O2SAT 98
[2021-12-11] MEDS: metroNIDAZOLE 500 MG/100 ML BAG 100 MG IVPB ×3 (02:14→18:04)
[2021-12-11 06:40] VITALS: BP 107/71; PULSE 75; RESP 16; TEMP 36.8; O2SAT 97
[2021-12-11 07:02] VITALS: BMI 16.7
[2021-12-11] MEDS: LORazepam 1 MG TAB PO ×3 (07:02→19:56)
[2021-12-11] MEDS: Lactated Ringers 1,000 ML 30 ML IV (07:34)
--- NOTE | 2021-12-11 08:07 | W.PM.OP ---
Date of service: 12/11/21 Time of Service: 08:07 Operative Note Operative Note DATE OF PROCEDURE: 11/13/21 PRE-OP DIAGNOSIS: stage III pressure ulcer POST-OP DIAGNOSIS: same PROCEDURE: I&D exam under anesthethis placement of amniofix \placement wound avc I&D SURGEON: Susana Richey MICROBIOLOGY MANAGER: Magui Ruvalcaba ANESTHESIA TYPE: Spinal Refer to Anesthesia Record ESTIMATED BLOOD LOSS: 0 PATHOLOGY: none sent COMPLICATIONS: None Patient was transported to: PACU Patient's condition: stable Implants: amniofix [id number] Procedure Description: wound size:medial 13x10 cm at max diameter. multiple islands of tissue ingrowth. no depth epithelialization noted. laterl: 8x10cm at max diameter multiple islands of tissue in-growth at the edges,. .1cm depth Patient is here today for repeat amnio graft placement. Informed consent was obtained explaining the risk of the procedure and limited to: Anesthesia, bleeding, exudate, allergic reaction. Patient is to be administered per the department of anesthesia. Patient was placed in the supine position with all bony surfaces padded. The wound VAC is removed and the wound is evaluated. is performedthe wound was cleansed with saline. Betadine was not used to avoid Injury to had previous grafting. Wound was measured. See above. The wound show good beefy red granulation tissue-99%. She has a cover of the tendon that was exposed on the lateral side to 90% coverage at this point. There is no signs of any infection. She is significant of tissue ingrowth. There is proteinaceous slough noted-less than 1%. There is good epitheliaization around the edges of the wound. Amnio graft was placed. Wound VAC was placed on top. Patient tolerated the procedure well without occasions. We will remove wound Friday. This document was created with activated software and may contain errors
[2021-12-11 08:39] VITALS: BP 120/75; PULSE 72; RESP 14; TEMP 36.3; O2SAT 100
--- NOTE | 2021-12-11 08:41 | RESPIRATORY ---
PT UNAVAILABLE FOR RT
[2021-12-11 08:44] VITALS: BP 135/86; PULSE 71; RESP 14; TEMP 36.3; O2SAT 100
[2021-12-11 08:49] VITALS: BP 117/67; PULSE 67; RESP 12; TEMP 36.3; O2SAT 100
--- NOTE | 2021-12-11 09:00 | W.ANESPOSTOP ---
Postoperative Evaluation Date, Time and Location Date Performed: 12/11/21 Time Performed: 09:02 Patient Location: PACU Vital Signs Most Recent Imported Vital Signs: Most Recent Vital Signs Temp Pulse Resp BP Pulse Ox 36.3 C L 67 12 117/67 100 12/11/21 08:49 12/11/21 08:49 12/11/21 08:49 12/11/21 08:49 12/11/21 08:49 Most Recent Vital Signs Temp Pulse Resp BP Pulse Ox 36.5 C 65 19 105/59 L 96 11/29/21 15:20 11/29/21 15:20 11/29/21 15:20 11/29/21 15:20 11/29/21 15:20 Most Recent Vital Signs Temp Pulse Resp BP Pulse Ox 37.5 C 106 H 16 116/78 96 11/22/21 15:05 11/22/21 15:05 11/22/21 15:05 11/22/21 15:05 11/22/21 15:05 Most Recent Vital Signs Temp Pulse Resp BP Pulse Ox 37.6 C H 121 H 19 97/58 L 98 11/15/21 15:23 11/15/21 15:23 11/15/21 15:23 11/15/21 15:23 11/15/21 15:23 Most Recent Vital Signs Temp Pulse Resp BP Pulse Ox 36.2 C L 94 H 24 93/42 L 98 11/13/21 16:49 11/13/21 16:49 11/13/21 16:49 11/13/21 16:49 11/13/21 16:49 Pain Score Most Recent Pain Score: Most Recent Pain Score Pain Level 0 12/11/21 08:49 Assessment Mental Status: Awake (Alert & Oriented to Patient Baseline) Airway and Respiratory Function: Patent airway with normal (patient baseline) respiratory exam Cardiovascular Function: Hemodynamically Stable Hydration Status: Adequately Hydrated Nausea & Vomiting: No Nausea or Vomiting Pain: Pain is tolerable per patient Peripheral Nerve Block: Patient did not receive a nerve block
[2021-12-11] MEDS: Ascorbic Acid 500 MG TAB PO ×2 (09:13→21:13)
[2021-12-11] MEDS: Buprenorphine/Naloxone 2 mg/0.5 mg FILM 1 EACH SL (09:13)
[2021-12-11] MEDS: DULoxetine 20 MG CAP PO ×2 (09:13→21:13)
[2021-12-11] MEDS: Buprenorphine/Naloxone 8 mg/2 mg FILM 2 EACH SL (09:13)
[2021-12-11] MEDS: methIMAzole 5 MG TAB PO (09:13)
[2021-12-11] MEDS: Famotidine 20 MG TAB PO ×2 (09:13→21:13)
[2021-12-11] MEDS: Zinc Sulfate 220 MG TAB PO (09:14)
[2021-12-11] MEDS: Cyanocobalamin 500 MCG TAB 1000 MCG PO (09:14)
--- NOTE | 2021-12-11 09:34 | PDOC.HHF2F_ITS ---
Home Health Certification Home Health Certification: 1. Encounter Date and Reason I certify that Nicol Akhtar was seen by Isaias Candelaria MD on 12/11/21 and that I had a [id number] encounter with this patient that meets the physician face to face encounter requirements. 2. Clinical Findings Supporting Skilled Need and Homebound Status I certify that home health services are medically necessary, include either intermittent longterm and/or physical/speech therapy, and that this pat ient is homebound in that absences from the home require considerable and taxing effort and are infrequent or of short duration, or are attributable to the need to receive medical care. [X] (a) Attached documentation from encounter provides clinical findings supporting skilled need and homebound status (including what assistance patient requires to leave the home). The encounter with the patient was in whole, or in part, for the following medical condition, which is the primary reason for home health care: Dry,Gangrene RLE Care Home:Monitor HR and BP; afib with new medication changes. Monitor respiratory status; Asthma, COPD. Physical Therapy:Evaluate and provide strengthening, gait training. Speech Therapy: Homebound:Requires assistance and a walker to safely ambulate outside of the home currently. 3. Certification and Authentication I certify that I composed the above information based on my clinical judgement relating to this patient's medical condition and, if applicable, clinical findi ngs communicated to me by the NPP or inpatient physician who performed the Home Health Referral. All further orders will be obtained through Isaac Nuno (Community Based Physician - PCP)
--- NOTE | 2021-12-11 09:59 | W.NUTRFU ---
Date of service: 12/11/21 Time of Service: 09:59 Nutrition Note NOTE: Nicol continues to meet nutrient and fluid needs by mouth with high protein diet. Refusing liquid protein and protein shakes but willing to consume high biological value protein and meeting 70 g protein daily (1.8 g pro/kg). Micronutrients supplemented to support healing (MVI, Vit C, Zinc Sulfate). Weight has remained stable since admission. Recommend prealbumin to assess adequacy. Will continue to follow and support. Time Spent in Nutritional Counseling and Treatment: 5
[2021-12-11] MEDS: Normal Saline Flush 10 ML SYR IVP ×2 (10:27→16:55)
[2021-12-11] MEDS: Gabapentin 300 MG CAP PO (14:38)
[2021-12-11] MEDS: Acetaminophen 325 MG TAB 650 MG PO (14:39)
[2021-12-11] MEDS: traMADol 50 MG TAB PO ×2 (14:43→21:13)
[2021-12-11 15:05] VITALS: BP 116/79; PULSE 63; RESP 18; TEMP 36.6; O2SAT 98
--- NOTE | 2021-12-11 16:21 | PDOC.CMPRO ---
- If Service Date Differs Date of service: 12/11/21 Time of Service: 16:21 Care Management Progress Note S/O: Nicol was sleeping soundly when CM went to check in with her. CM spoke with Rosaura, Nursing Heating And Air Conditioning Mechanic, regarding staffing for this week's family visit (5:00-6:00PM Friday, in Library). CM continues to follow. A: 36 year old female admitted to [facility] on 11/13/21 for Dry, Gangrene RLE. P: Nicol will require IV abx and ongoing wound care for gangrenous wound(s) on her right ankle, skin graft surgical intervention took place 11/29/21 and per patient report, was successful. Nicol will transition to SWB1 status when medically ready. CM will continue to coordinate and support in person family visitation.
[2021-12-11] MEDS: cefTRIAXone 2 GM/50 ML BAG IVPB (16:55)
[2021-12-11] MEDS: Gabapentin 300 MG CAP 600 MG PO (21:12)
[2021-12-11 23:56] VITALS: BP 115/71; PULSE 100; RESP 18; TEMP 36.6; O2SAT 98
[2021-12-12] MEDS: metroNIDAZOLE 500 MG/100 ML BAG 100 MG IVPB ×3 (02:36→18:22)
[2021-12-12] MEDS: Normal Saline Flush 10 ML SYR IVP ×4 (07:03→17:19)
[2021-12-12] MEDS: Tiotropium Bromide-Respimat 10 PUFF INH 2 PUFF IH (07:24)
[2021-12-12] MEDS: Ascorbic Acid 500 MG TAB PO ×2 (08:33→20:52)
[2021-12-12] MEDS: Famotidine 20 MG TAB PO ×2 (08:33→20:51)
[2021-12-12] MEDS: methIMAzole 5 MG TAB PO (08:33)
[2021-12-12] MEDS: Cyanocobalamin 500 MCG TAB 1000 MCG PO (08:33)
[2021-12-12] MEDS: DULoxetine 20 MG CAP PO ×2 (08:33→20:51)
[2021-12-12] MEDS: Zinc Sulfate 220 MG TAB PO (08:33)
[2021-12-12] MEDS: LORazepam 1 MG TAB PO ×3 (08:33→23:56)
[2021-12-12] MEDS: Buprenorphine/Naloxone 2 mg/0.5 mg FILM 1 EACH SL (08:34)
[2021-12-12] MEDS: Buprenorphine/Naloxone 8 mg/2 mg FILM 2 EACH SL (08:34)
--- NOTE | 2021-12-12 10:18 | W.PM.PROGNOT ---
Date of Service Date of service: 12/12/21 Time of Service: :19 Assessment and Plan Assessment and plan (1) Status post xenograft placement: Status: Acute Assessment and plan: -Wound vac in place -Repeat xenografting done yesterday 12/11 -Spliniting not tolerated -Continue high protein diet -Aggressive PT to limit contracture -IV abx will be complete on 12/15 - Hopefully Home with PT and Home health on 12/16. (2) COPD (chronic obstructive pulmonary disease): Status: Chronic (3) Hyperthyroidism: Status: Chronic (4) Hypoalbuminemia due to protein-calorie malnutrition: Status: Acute (5) Thyroid nodule: Status: Acute Assessment and plan: Will need outpatient follow up with endocrinology and ENT (6) Discharge planning issues: Status: Acute Assessment and plan: Hopefully D/C to home on 12/16 with PT and Home health in place (7) Depression: Status: Chronic (8) Bullous emphysema: Status: Acute (9) Asthma: Status: Chronic Subjective Subjective Interval history since last seen: Nicol is doing well. Her foot is swollen today. NO other complaints Exam Resp Effort & Inspection: normal respiratory effort Auscultation: clear to auscultation bilaterally Cardio Rate: regular rate Rhythm: regular rhythm Extrem Other: Left lower extremity- there is pitting edema of the dorsum of her foot. Wound vac is in place. Objective Last Vital Signs Temp 97.9 F 12/11/21 23:56 Pulse 100 H 12/11/21 23:56 Resp 18 12/11/21 23:56 BP 115/71 12/11/21 23:56 Pulse Ox 98 12/11/21 23:56
[2021-12-12] MEDS: traMADol 50 MG TAB PO ×2 (13:54→20:51)
[2021-12-12] MEDS: Gabapentin 300 MG CAP PO (13:54)
[2021-12-12 14:18] VITALS: BP 119/74; PULSE 93; RESP 16; TEMP 36.7; O2SAT 99
--- NOTE | 2021-12-12 16:45 | PTTR_ITS ---
Date of service: 12/12/21 Time of Service: 16:45 PT Notes Visit Reasons: Dry,Gangrene RLE Physical Therapy Inpatient Treatment Note Date: 12/12/2021 Precautions: Fall. Standard. WBAT on R LE with AD. Subjective: Reports that wound vac insertion site and recent wound debridement brings pain level to 10/10 with foot flat of R foot despite premedication for pain. Objective: General Observation:? Cachexic.? IV in the L UE.? Wound dressing to right foot and ankle.? Wound vacuum in place. Mental Status: Alert and oriented as to person, place, time, and purpose. Able to pay attention, focus, and respond appropriately. Pain: 10/10 on R ankle with attempts at foot flat with ambulation activity Bed Mobility/Transfers: Supine to sit independent Sit to stand independent Stand to sit independent Bed to reclining chair independent Gait: Able to tolerate level surface ambulation of up to 600 feet with weight bearing as tolerated on the R foot. Patient is able to tolerate forefoot flat onto floor but reports of 10/10 pain if she tries to put her heel this afternoon. Modified independent with 4WW with all hallway ambulation. THERA EX: Declined ankle exercises today due to complaint of discomfort over placement of wound vac insertion site on wound irritating her L malleolar area. Balance: Static Sitting: Normal Dynamic Sitting: Normal Static Standing: Fair Dynamic Standing: Fair Assessment: I and D yesterday. WBAT on the R LE.? Needscontinued services to pr ogress WB and cueing to facilitate heel-toe gait pattern as well as full ankle AROM.? Modified independent in the hallway with 4WW. DISCHARGE RECOMMENDATIONS: [] ? Home with no services [] [] ? Home with services [specify] [X] ? Home with outpatient PT. Patient will benefit from outpatient PT services in order to progress mobility level using least restrictive assistive ambulatory device while progressing mobility level to PLOF that will increase ability of patient to remain at home. [] ? SNF for continued rehabilitation [] [] ? [facility] [] [] ? SNF versus LTC based on ability to participate and progress [] TREATMENT CODE/TIME:? 82580 x 15 minutes beginning at 16:45 PM. Thank you for the opportunity to participate in the care of this patient. Funmi Castañeda PT, DPT, CLT [facility], [place]
[2021-12-12] MEDS: cefTRIAXone 2 GM/50 ML BAG IVPB (17:19)
[2021-12-12] MEDS: Enoxaparin 40 MG/0.4 ML SYR SC (20:52)
[2021-12-12] MEDS: Gabapentin 300 MG CAP 600 MG PO (21:02)
[2021-12-12 23:37] VITALS: BP 110/75; PULSE 105; RESP 17; TEMP 36.7; O2SAT 99
[2021-12-13] MEDS: metroNIDAZOLE 500 MG/100 ML BAG 100 MG IVPB ×3 (02:27→18:18)
[2021-12-13] MEDS: Tiotropium Bromide-Respimat 10 PUFF INH 2 PUFF IH (07:37)
[2021-12-13 07:40] VITALS: BP 132/81; PULSE 87; RESP 19; TEMP 36.6; O2SAT 97
[2021-12-13] MEDS: Buprenorphine/Naloxone 2 mg/0.5 mg FILM 1 EACH SL (08:56)
[2021-12-13] MEDS: DULoxetine 20 MG CAP PO ×2 (08:57→19:54)
[2021-12-13] MEDS: Cyanocobalamin 500 MCG TAB 1000 MCG PO (08:57)
[2021-12-13] MEDS: Ascorbic Acid 500 MG TAB PO ×2 (08:57→19:54)
[2021-12-13] MEDS: Buprenorphine/Naloxone 8 mg/2 mg FILM 2 EACH SL (08:57)
[2021-12-13] MEDS: Zinc Sulfate 220 MG TAB PO (08:57)
[2021-12-13] MEDS: Famotidine 20 MG TAB PO ×2 (08:57→19:54)
[2021-12-13] MEDS: methIMAzole 5 MG TAB PO (08:57)
[2021-12-13] MEDS: LORazepam 1 MG TAB PO ×3 (09:02→21:42)
[2021-12-13] MEDS: traMADol 50 MG TAB PO ×2 (09:02→21:43)
[2021-12-13] MEDS: Normal Saline Flush 10 ML SYR IVP ×2 (10:44→17:23)
[2021-12-13] MEDS: Gabapentin 300 MG CAP PO (13:59)
[2021-12-13 14:58] VITALS: BP 114/80; PULSE 100; RESP 16; TEMP 37.1; O2SAT 98
--- NOTE | 2021-12-13 16:06 | W.PM.PROGNOT ---
Date of Service Date of service: 12/13/21 Time of Service: 16:06 Assessment and Plan Assessment and plan (1) Thyroid nodule: Status: Acute Assessment and plan: -she is doing much better w/ pain control. she is up adn walking and slowly regaining function -she is tolerating a high protein diet adn has gained almost 20#'s. -would she infection resolved and good granulation tissue and epitheilalization. we have d/w wound care and physco-social and financial impediments.. She has decided she wants to stay to improve changes of graft take and to avoid infection and other delays in healing, I feel this is her best option to avoid amputation. Once she has completed abx- will place on swing bed status. plan repeat grafting in next few weeks. (2) Status post xenograft placement: Status: Acute (3) COPD (chronic obstructive pulmonary disease): Status: Chronic (4) Bullous emphysema: Status: Acute (5) Bronchiectasis: Status: Acute (6) Hypoalbuminemia due to protein-calorie malnutrition: Status: Acute (7) Smoker unmotivated to quit: Status: Chronic (8) Asthma: Status: Chronic (9) Narcotic abuse in remission: Subjective Subjective Interval history since last seen: Pt is doing well. no headaches. No CP or SOB. no productive cough. no dysuria. no leg pain. she has some mild swelling in her R foot. no pain in calf/thigh. surrounding skin is intact. no diarrhea. no thrush. doing well Objective Last Vital Signs Temp 37.1 C 12/13/21 14:58 Pulse 100 H 12/13/21 14:58 Resp 16 12/13/21 14:58 BP 114/80 12/13/21 14:58 Pulse Ox 98 12/13/21 14:58
--- NOTE | 2021-12-13 16:54 | PDOC.CMPRO ---
- If Service Date Differs Date of service: 12/13/21 Time of Service: 16:54 Care Management Progress Note S/O: Nicol continues to ambulate throughout the hallways, CM spoke with Marsha, Nursing Polishing Machine Operator Helper, regarding staffing for this week's family visit (5:00-6:00PM Friday, in Library). CM continues to follow. A: 36 year old female admitted to [facility] on 11/13/21 for Dry, Gangrene RLE. P: Nicol will require IV abx and ongoing wound care for gangrenous wound(s) on her right ankle, skin graft surgical intervention took place 11/29/21 and per patient report, was successful. Nicol will transition to SWB1 status when medically ready. CM will continue to coordinate and support in person family visitation.
[2021-12-13] MEDS: cefTRIAXone 2 GM/50 ML BAG IVPB (17:22)
[2021-12-13] MEDS: Enoxaparin 40 MG/0.4 ML SYR SC (19:55)
[2021-12-13] MEDS: Gabapentin 300 MG CAP 600 MG PO (21:42)
[2021-12-13 23:05] VITALS: BP 117/85; PULSE 95; RESP 16; TEMP 37.2; O2SAT 98
[2021-12-14] MEDS: metroNIDAZOLE 500 MG/100 ML BAG 100 MG IVPB ×2 (01:43→09:36)
[2021-12-14] MEDS: Normal Saline Flush 10 ML SYR IVP (01:44)
[2021-12-14] MEDS: Tiotropium Bromide-Respimat 10 PUFF INH 2 PUFF IH (07:31)
[2021-12-14 07:35] VITALS: BP 114/72; PULSE 71; RESP 19; TEMP 37.1; O2SAT 96
[2021-12-14] MEDS: Buprenorphine/Naloxone 2 mg/0.5 mg FILM 1 EACH SL (09:20)
[2021-12-14] MEDS: Buprenorphine/Naloxone 8 mg/2 mg FILM 2 EACH SL (09:20)
[2021-12-14] MEDS: methIMAzole 5 MG TAB PO (09:21)
[2021-12-14] MEDS: Famotidine 20 MG TAB PO (09:21)
[2021-12-14] MEDS: Cyanocobalamin 500 MCG TAB 1000 MCG PO (09:21)
[2021-12-14] MEDS: Ascorbic Acid 500 MG TAB PO (09:21)
[2021-12-14] MEDS: Zinc Sulfate 220 MG TAB PO (09:21)
[2021-12-14] MEDS: DULoxetine 20 MG CAP PO (09:21)
[2021-12-14] MEDS: LORazepam 1 MG TAB PO ×2 (09:21→15:13)
--- NOTE | 2021-12-14 11:42 | PDOC.CMPRO ---
- If Service Date Differs Date of service: 12/14/21 Time of Service: 11:42 Care Management Progress Note S/O: Nicol continues to ambulate throughout the hallways, CM spoke with Marsha, Nursing Security Systems Installer, regarding staffing for today's family visit (5:00-6:00PM Friday, in Library). CM reviewed contact information in the event Nicol wants to cancel the visit for today. She appeared to be in good spirits, was ambulating in her room, and appears much healthier compared to earlier this admission. CM continues to follow. A: 36 year old female admitted to [facility] on 11/13/21 for Dry, Gangrene RLE. P: Nicol will require IV abx and ongoing wound care for gangrenous wound(s) on her right ankle, additional skin graft surgical intervention took place 12/11/21 and per patient report, was successful. Discharge planning has been unpredictable; notified this week of anticipated discharge delay into December. Anticipate CM will continue to coordinate and support in person family visitation.
--- NOTE | 2021-12-14 12:30 | PGE_ITS ---
Date of Service Date of service: 12/14/21 Time of Service: 12:31 Assessment and Plan Assessment and plan (1) Dry gangrene: Status: Acute Assessment and plan: -S/P wound debridement 11/13 and 11/15 then xenografting with AmnioFix 11/29 and 12/11 -Wound vac remains in place, to be changed on Saturday 12/16 @10AM -Continue IV abx until tomorrow 12/15 for completion of therapy -Patient has been tolerant of protein supplements, gained 20lbs since admission -Repeat Prealbumin, last level was 7 on 11/17/21 -May be considered for allograft if nutritional status is optimized, otherwise h igh rate of failure. Xenografting will continue as planned if nutritional status remains suboptimal. -Did not tolerate splinting, exposed tendon nearly completely covered per last operative report, high likelihood of residual limited ROM in right ankle. Regained mobility dependent on patient compliance and graft success. -Minimizing shear forces to encourage graft take and limit contracture is our current challenge as this wound is nearly circumferential. (2) Thyroid nodule: Status: Acute Assessment and plan: -Needs follow up radioactive iodine uptake scan, earliest January 04 due to IV contrast. -FNA biopsy likely to proceed once uptake scan performed -TIRADS 4 nodule on right via thyroid US 11/15 -Chest CT with 3 concerning spiculated right-sided lung nodules (upper, mid and lower lobes) per radiology which may coincide with thyroid pathology for possible malignancy. Large left sided bullae. Pulmonology consulted 11/26, offered bronchoscopy for biopsy but patient refused, preliminary broad spectrum laboratory testing ordered and repeat CT due by 01/24 prior to outpatient follow up. -Close follow up for thyroid will be arranged, repeat TSH next week, RAIU scan 01/04 or later due to IV contrast administration for chest CT. (3) Status post xenograft placement: Status: Acute (4) COPD (chronic obstructive pulmonary disease): Status: Chronic (5) Bullous emphysema: Status: Acute (6) Bronchiectasis: Status: Acute (7) Hypoalbuminemia due to protein-calorie malnutrition: Status: Acute (8) Smoker unmotivated to quit: Status: Chronic (9) Asthma: Status: Chronic (10) Narcotic abuse in remission: Subjective Subjective Patient reports: no new complaints, pain is less and afebrile; denies nausea or vomiting Exam Const General: cooperative, comfortable and no acute distress Nutritional Appearance: cachectic (improving overall, now up 20lbs) Eyes General: appearance normal, both eyes and all related structures Resp Effort & Inspection: normal respiratory effort, able to speak in complete sentences, no audible wheezes and no use of accessory muscles Cardio Rate: regular rate and tachycardic (intermittent tachycardia) Rhythm: regular rhythm Skin Wounds: wounds noted (right ankle wound with wound vac in place) Neuro General: patient alert, patient awake and patient oriented x3 Cranial Nerves: CN's II-XI intact bilaterally Cognition: normal cognition Speech: speech normal Sensory Exam: no sensory deficits noted Objective Last Vital Signs Temp 98.8 F 12/14/21 07:35 Pulse 71 12/14/21 07:35 Resp 19 12/14/21 07:35 BP 114/72 12/14/21 07:35 Pulse Ox 96 12/14/21 07:35
[2021-12-14] MEDS: Gabapentin 300 MG CAP PO (14:11)
--- NOTE | 2021-12-14 14:31 | W.PM.DS.N ---
Date of service: 12/14/21 Time of Service: 14:32 DS: Diagnosis Discharge Diagnosis (1) Thyroid nodule: Status: Acute (2) Status post xenograft placement: Status: Acute (3) COPD (chronic obstructive pulmonary disease): Status: Chronic (4) Bullous emphysema: Status: Acute (5) Bronchiectasis: Status: Acute (6) Hypoalbuminemia due to protein-calorie malnutrition: Status: Acute (7) Smoker unmotivated to quit: Status: Chronic (8) Asthma: Status: Chronic (9) Narcotic abuse in remission: Discharge Plan Disposition Condition: Stable Discharge Details Reason For Visit: Dry,Gangrene RLE Admit Date/Time: 11/13/21 15:30 Admit Provider: Susana Richey Attending Provider: Susana Richey [facility] Course: see addendum Home Meds and New Rx's Prescriptions: No Action Mirena 1 EACH intrauterine device 1 unit IU DAILY 0RF propranolol 20 mg tablet 20 mg PO BID 0RF Label Comments: TAKE 1 TABLET BY MOUTH TWICE DAILY Rx Instructions: for beta blockade due to hyperthyroidism ferrous gluconate 324 mg (38 mg iron) tablet 324 mg PO DAILY 0RF Label Comments: TAKE 1 TABLET BY MOUTH ONCE A DAY buprenorphine-naloxone [Suboxone] 2-0.5 mg Film 1 film sublingual DAILY 0RF Rx Instructions: place 1 strip/tab under (each) side of tongue buprenorphine-naloxone [Suboxone] 8-2 mg Film 2 film SUBLINGUAL DAILY 0RF Rx Instructions: place 1 strip/tab under (each) side of tongue Discharge Instructions Additional Instructions: -Patient has completed 3-week course of IV antibiotics -TSH will be checked next week to evaluate her hyperthyroidism -She continues to require wound VAC and nursing care to maintain this that she is not able to receive at home. She will require grafting on 12/25. -She requires nuclear med study thyroid and we cannot order that until January 04. -She will require close pulmonary follow-up -VAC changes as directed. Continue PT -Continue nutritional support -Continue pain management plan Equipment/Supplies: Walker Activity:: per PT Shower/Bathe:: Cover Activity:: as directed Equipment/Supplies:: wound vac Diet:: high protein DS: Summary Time Spent with Patient providing and/or coordinating discharge services: Greater than 30 minutes Status at Discharge Functional status at discharge: uses cane/walker Overall status at discharge: patient is not back to baseline Mental Status: mental status grossly normal Speech and Movement: speech and movement normal Mood: congruent mood Affect: normal affect Exam Psych Mental Status: mental status grossly normal Speech and Movement: speech and movement normal Mood: congruent mood Affect: normal affect DS: Data Vitals/I&O Vitals and I&O: Vital Signs Temperature 37.1 C 12/14/21 07:35 Temperature Source Tympanic 12/14/21 07:35 Pulse 71 12/14/21 07:35 Pulse Rhythm Regular 12/14/21 07:04 Respiratory Rate 19 12/14/21 07:35 Respiratory Effort Non-Labored 12/14/21 07:04 Respiratory Depth Normal 12/14/21 07:04 Respiratory Pattern Normal 12/14/21 07:04 Blood Pressure 114/72 12/14/21 07:35 Blood Pressure Position Sitting 11/13/21 09:49 Pulse Oximetry 96 12/14/21 07:35 Oxygen Delivery Method Room Air 12/14/21 07:35 Oxygen Flow Rate 0 12/14/21 07:35 Pain Level 6 12/13/21 23:05 Comment 12/05/21 15:14 Intake & Output 12/13/21 12/14/21 12/14/21 23:59 11:59 23:59 Intake Total 580 / 780 340 / 460 120 / 460 Output Total 200 / 800 400 / 800 400 / 800 Balance 380 / -20 -60 / -340 -280 / -340 Intake: IV 100 / 300 100 / 100 Oral 480 / 480 240 / 360 120 / 360 Output: Urine 200 / 700 400 / 800 400 / 800 Other: Urine Color Yellow Yellow Yellow Urine Appearance Cloudy Cloudy Clear Urine Odor Normal Normal Normal Stool Size Moderate Stool Characteristics Soft Voiding Methods Bedside Commode Toilet Toilet PFSH All Active Problems (Updated 12/06/21 @ 20:31 by Susana Richey DO) Thyroid nodule (Acute) Status post xenograft placement (Acute) COPD (chronic obstructive pulmonary disease) (Chronic) Bullous emphysema (Acute) Bronchiectasis (Acute) DVT prophylaxis (Acute) Discharge planning issues (Acute) Depression (Chronic) Dry gangrene (Acute) Hyperthyroidism (Chronic) Hypoalbuminemia due to protein-calorie malnutrition (Acute) Smoker unmotivated to quit (Chronic) Asthma (Chronic) Medical History (Updated 12/06/21 @ 20:31 by Susana Richey DO) Hypokalemia due to loss of potassium Narcotic abuse in remission Surgical History (Updated 11/29/21 @ 22:08 by Susana Richey DO) History of adenoidectomy S/p bilateral myringotomy with tube placement Social History Smoking/Tobacco Use Status: Current every day Tobacco Type: cigarettes Smoking risk assessment performed?: Yes Alcohol Intake: never Drug use: Current Sobriety Substance use type: former substance user Do you feel safe at home: Yes Do you feel safe in your relationship?: Yes
--- NOTE | 2021-12-14 14:40 | W.PM.HP.N ---
Date of service: 12/14/21 Time of Service: 14:41 [facility] All Active Problems (Updated 12/06/21 @ 20:31 by Susana Richey DO) Thyroid nodule (Acute) Status post xenograft placement (Acute) COPD (chronic obstructive pulmonary disease) (Chronic) Bullous emphysema (Acute) Bronchiectasis (Acute) DVT prophylaxis (Acute) Discharge planning issues (Acute) Depression (Chronic) Dry gangrene (Acute) Hyperthyroidism (Chronic) Hypoalbuminemia due to protein-calorie malnutrition (Acute) Smoker unmotivated to quit (Chronic) Asthma (Chronic) Medical History (Updated 12/06/21 @ 20:31 by Susana Richey DO) Hypokalemia due to loss of potassium Narcotic abuse in remission Surgical History (Updated 11/29/21 @ 22:08 by Susana Richey DO) History of adenoidectomy S/p bilateral myringotomy with tube placement Social History Smoking/Tobacco Use Status: Current every day Tobacco Type: cigarettes Smoking risk assessment performed?: Yes Alcohol Intake: never Drug use: Current Sobriety Substance use type: former substance user Do you feel safe at home: Yes Do you feel safe in your relationship?: Yes Meds Allergies and Home Medications Allergies Allergy/AdvReac Type Severity Reaction Status Date / Time Penicillins Allergy Unknown Hives Verified 11/13/21 14:49 Home Medications Medication Instructions Recorded Confirmed Type levonorgestrel 20 mcg/24 hours (7 1 unit IU DAILY 08/22/15 11/13/21 History yrs) 52 mg intrauterine device (Mirena) ferrous gluconate 324 mg (38 mg 324 mg PO DAILY 11/13/21 11/13/21 History iron) tablet propranolol 20 mg tablet 20 mg PO BID 11/13/21 11/13/21 History buprenorphine 2 mg-naloxone 0.5 mg 1 film SUBLINGUAL DAILY 11/14/21 11/14/21 History sublingual film (Suboxone) buprenorphine 8 mg-naloxone 2 mg 2 film SUBLINGUAL DAILY 11/14/21 11/14/21 History sublingual film (Suboxone) Results Labs Result diagrams: 12/10/21 06:30 12/03/21 07:19 Last Vital Signs Temp 37.1 C 12/14/21 07:35 Pulse 71 12/14/21 07:35 Resp 19 12/14/21 07:35 BP 114/72 12/14/21 07:35 Pulse Ox 96 12/14/21 07:35
[2021-12-14 15:22] VITALS: BP 118/77; PULSE 108; RESP 14; TEMP 37; O2SAT 98
--- NOTE | 2021-12-14 16:29 | NUR.NOTE ---
Nursing Note: Patient changed to swing bed
[2021-12-15 07:41] LABS: Abs Immature Grans 0.01 10^3/uL (0.0-0.06); Absolute Basophil Count 0.09 10^3/uL (0.0-0.2); Absolute Eosinophil Count 0.29 10^3/uL (0.0-0.7); Absolute Lymphocyte Count 2.41 10^3/uL (1.2-3.4); Absolute Monocyte Count 0.64 10^3/uL (0.1-0.8); Absolute Neutrophil Count 5.53 10^3/uL (1.2-6.7); Eosinophils % 3.2; HCT 40.6 % (36.0-46.0); HGB 12.3 g/dL (11.2-15.7); Immature Grans % 0.1; Lymphocytes % 26.9; MCH 28.4 pg (27.0-33.0); MCHC 30.3 % (32.0-36.0); MCV 93.8 fL (80-95); MPV 9.6 fL (8.0-11.0); Monocytes % 7.1; Neutrophils % 61.7; Nucleated RBC 0 %; Platelet Count 360 10^3/uL (130-400); RBC 4.33 10^6/uL (3.93-5.22); RDW 19.6 % (11.7-14.6); RDW-SD 68.2 fL; WBC 8.97 10^3/uL (4.4-10.8)
[2021-12-15 08:07] LABS: ALT 23 U/L (14-59); AST 16 U/L (15-37); Alkaline Phosphatase 63 U/L (46-116); Anion Gap 6.6 mmol/L (3-11); BUN 13 mg/dL (7-18); Bilirubin, Total 0.1 mg/dL (0.2-1.0); CO2 27.4 mmol/L (21.0-32.0); CREATININE 0.7 mg/dL (0.55-1.02); Calcium 8.9 mg/dL (8.5-10.1); Chloride 106 mmol/L (98-107); Glucose 129 mg/dL (74-106); Magnesium 2.1 mg/dL (1.8-2.4); Potassium 3.5 mmol/L (3.5-5.1); Sodium 140 mmol/L (136-145)
[2021-12-15 08:27] LABS: PHOSPHORUS 4.6 mg/dL (2.6-4.7)
[2021-12-17 09:46] LABS: Prealbumin 27 mg/dL (20-40)
== END 2021-12-14 16:14 | disposition swing bed (61) | DRG 264 ==
LOC: ER 14:42 → SUR 15:13 → MS 17:02
PROVIDERS: Family Medicine; Internal Medicine; Student in an Organized Health Care Education/Training Program; Surgery; Admitting Provider Surgery; Emergency Provider Physician Assistant; PCP Family Medicine; Visit Provider Surgery
PROC: 0JBQ0ZZ Excision of Right Foot Subcutaneous Tissue and Fascia, Open Approach (ICD-10-PCS; CPT 11042; principal; 2021-11-13 17:00)
PROC: 0YU Anatomical Regions, Lower Extremities, Supplement (ICD-10-PCS; CPT 15273; principal; 2021-11-29 13:00)
DX: I96 Gangrene, not elsewhere classified (principal); L89.513 Pressure ulcer of right ankle, stage 3; J18.9 Pneumonia, unspecified organism; E46 Unspecified protein-calorie malnutrition; Z68.1 Body mass index [BMI] 19.9 or less, adult; E87.1 Hypo-osmolality and hyponatremia; F11.11 Opioid abuse, in remission; Z79.899 Other long term (current) drug therapy; Z86.16 Personal history of COVID-19; E05.90 Thyrotoxicosis, unspecified without thyrotoxic crisis or storm; J45.909 Unspecified asthma, uncomplicated; F17.210 Nicotine dependence, cigarettes, uncomplicated; R00.0 Tachycardia, unspecified; D50.9 Iron deficiency anemia, unspecified; E87.6 Hypokalemia; E83.42 Hypomagnesemia; B96.20 Unspecified Escherichia coli [E. coli] as the cause of diseases classified elsewhere; B95.1 Streptococcus, group B, as the cause of diseases classified elsewhere; S91.332A Puncture wound without foreign body, left foot, initial encounter; W22.8XXA Striking against or struck by other objects, initial encounter; F32.9 Major depressive disorder, single episode, unspecified; J47.9 Bronchiectasis, uncomplicated; J43.9 Emphysema, unspecified; R91.8 Other nonspecific abnormal finding of lung field; E04.1 Nontoxic single thyroid nodule; R59.0 Localized enlarged lymph nodes
CPT/HCPCS: 11042 ×2; 64447; 64445; 15273 ×2; 15274 ×2; 36410; 36415; 76942; 80048; 80053; 80307; 81025; 82306; 82784; 84145; 85027; 85652; 86255; 86376; 86704; 86706; 86803; 86850; 86900; 86901; 87040; 87077; 87081; 87116; 87206; 87340; 87389; 87449; 87635; 94060; 94640; 96361; 96365; 96366; 96368; 96375; 97110; 97162; 97530; 99285; J1650; 71045; 71260; 73610; 73630; 73701; 73720; 76536; 80202; 81003; 81015; 82040; 82103; 82607; 82728; 82746; 82785; 82787; 82977; 83036; 83540; 83550; 83605; 83735; 83993; 84100; 84134; 84155; 84439; 84443; 84445; 84480; 85025; 85379; 86038; 86140; 87070; 87075; 87086; 87186; 87205; 87385; 87899; 88304; 88305; 99222; 99231; 99232; 99233; J0131; J0744; J1756; J1885; J2060; J2250; J2405; J3420; J3480; J3490; J9999

== ENCOUNTER 2021-12-14 16:16 | Inpatient (IN) | payer MEDICAID, SELFPAY ==
--- NOTE | 2021-12-14 15:21 | CM.SBPSYCH ---
- If Service Date Differs Date of service: 12/14/21 Time of Service: 15:21 SB Psychosocial/Act.Assessment - Hospital Admission Admission Date: 11/13/21 Admission From:: Home Diagnosis:: Dry Gangrene RLE - Swing Bed Admission Swing Bed Admit Date:: 12/14/21 Swing Bed Level of Care: Level 1/SNF - Social Supports PREVIOUS FUNCTIONAL STATUS/SOCIAL/FAMILY SUPPORTS:: Nicol lives in [facility] with her s/o Solo, their children and grandchild. She is recently unemployed and does not drive. She is independent at baseline. - Benefits Financial: Medicaid - Interests Hobbies:: Crafting, taking care of plants and gardens, spending time with her children and grandchildren. Table Games:: Enjoys puzzles, has completed half a dozen since admission. Music:: Likes Pop music, portable electronic music device provided. TV/Movies:: Enjoys watching movies, patient laptop provided. Gardening:: Enjoys plants, clippings, soil and pots provided to Nicol to grow plants while at [facility]. - Present Functional Status Physical Abilities:: Ambulation and gait effected by LE dry gangrene infection. Cognitive:: Intact Communication:: Appropriate Behavior:: Pleasant, caring, friendly, appropriate, at times anxious. - Medical History PAST MEDICAL HISTORY/PAST SURGICAL HISTORY:: All Active Problems (Updated 11/13/21 @ 14:40 by Susana Richey DO). Leukocytosis (leucocytosis) (Acute). Asthma (Chronic). Hypokalemia due to loss of potassium (Acute). Hypoalbuminemia due to protein-calorie malnutrition (Acute). Dry gangrene (Acute). Smoker unmotivated to quit (Acute). Open ankle wound (Acute). Subcutaneous air (Acute). Wound infection (Acute). CAP (community acquired pneumonia) (Acute). Pain, dental (Acute). Medical History (Updated 11/13/21 @ 14:40 by Susana Richey DO). Narcotic abuse in remission. Tachycardia. Surgical History (Updated 11/13/21 @ 10:15 by Jazzy Celaya DO). History of adenoidectomy. S/p bilateral myringotomy with tube placement - Admission Data Reason for Swing Bed Admission:: IV ABX, wound care with wound vac. Discharge Plan:: Additional surgeries anticipated at this time. Wound progress will determine discharge planning considerations. Assessment: S/T rehab anticipated for ongoing wound care with wound vac and IV ABX. Quality Control Expert: Heather Hou Date Assessment was completed:: 12/14/21
--- NOTE | 2021-12-14 15:31 | CM.SWINGPC ---
- If Service Date Differs Date of service: 12/14/21 Time of Service: 15:31 Swingbed Plan of Care Plan of care: SWING BED PROGRAM ACTIVITIES/DISCHARGE PLAN OF CARE ACTIVITIES PLAN Date: 12/14/21 Identified Need: Life Enrichment during extended hospitalization. Intervention/Plan: Arts and crafts, plant materials, in person family visit coordination, patient laptop, music therapy provided. Initials: SUSY DISCHARGE PLAN Date: 12/14/21 Identified Need: Dry Gangrene LE wound Intervention/Plan: Wound care with wound vac and IV ABX. Initials: SUSY
--- NOTE | 2021-12-14 15:32 | W.PM.HP.N ---
Date of service: 12/14/21 Time of Service: 15:32 Assessment and Plan Assessment and plan (1) Positive NINI (antinuclear antibody): Status: Acute (2) Thyroid nodule: Status: Acute (3) Status post xenograft placement: Status: Acute (4) COPD (chronic obstructive pulmonary disease): Status: Chronic (5) Bullous emphysema: Status: Acute (6) Hyperthyroidism: Status: Chronic (7) Hypoalbuminemia due to protein-calorie malnutrition: Status: Acute (8) Asthma: Status: Chronic Assessment and plan: -cont wound vac -possible repeat grafting on 12/25. cont nutritional support -PT thyroid nuclear scan 01/04. pain management dvt/gi prophalaxis pulm toilet psycho/socila support History of Present Illness Narrative: We will change her status to swing bed. She will be in [facility] another 3 wks for continued wound care. Her physcho-social situation puts her at high risk for developing another wound infection/loss of limb. Patient has completed 3-week course of IV antibiotics -TSH will be checked next week to evaluate her hyperthyroidism -She continues to require wound VAC and nursing care to maintain this that she is not able to receive at home.? She will require grafting on 12/25. -She requires nuclear med study thyroid and we cannot order that until January 04. -She will require close pulmonary follow-up -VAC changes as directed. Continue PT -Continue nutritional support -Continue pain management plan VAC change under Friday. Review of Systems All systems reviewed & are unremarkable except as noted in HPI and below PFSH All Active Problems (Updated 12/15/21 @ 12:41 by Lizzy Myrick DO) Positive NINI (antinuclear antibody) (Acute) Thyroid nodule (Acute) Status post xenograft placement (Acute) COPD (chronic obstructive pulmonary disease) (Chronic) Bullous emphysema (Acute) Depression (Chronic) Hyperthyroidism (Chronic) Hypoalbuminemia due to protein-calorie malnutrition (Acute) Smoker unmotivated to quit (Chronic) Asthma (Chronic) Medical History (Updated 12/15/21 @ 12:41 by Lizzy Myrick DO) Hypokalemia due to loss of potassium Narcotic abuse in remission Surgical History (Updated 11/29/21 @ 22:08 by Susana Richey DO) History of adenoidectomy S/p bilateral myringotomy with tube placement Social History Smoking/Tobacco Use Status: Current every day Tobacco Type: cigarettes Smoking risk assessment performed?: Yes Alcohol Intake: never Drug use: Current Sobriety Substance use type: former substance user Do you feel safe at home: Yes Do you feel safe in your relationship?: Yes Meds Allergies and Home Medications Allergies Allergy/AdvReac Type Severity Reaction Status Date / Time Penicillins Allergy Unknown Hives Verified 11/13/21 14:49 Home Medications Medication Instructions Recorded Confirmed Type levonorgestrel 20 mcg/24 hours (7 1 unit IU DAILY 08/22/15 12/14/21 History yrs) 52 mg intrauterine device (Mirena) ferrous gluconate 324 mg (38 mg 324 mg PO DAILY 11/13/21 12/14/21 History iron) tablet propranolol 20 mg tablet 20 mg PO BID 11/13/21 12/14/21 History buprenorphine 2 mg-naloxone 0.5 mg 1 film SUBLINGUAL DAILY 11/14/21 12/14/21 History sublingual film (Suboxone) buprenorphine 8 mg-naloxone 2 mg 2 film SUBLINGUAL DAILY 11/14/21 12/14/21 History sublingual film (Suboxone) Exam HENMT Head: normal to inspection Ears: hearing grossly normal bilaterally General nose exam: external nose normal Mouth: moist mucous membranes Teeth and gingiva: fair dentition Throat: posterior oropharynx normal Eyes Pupils: PERRL EOM: EOM intact bilaterally GI Palpation: soft and nontender Extrem General: no clubbing, cyanosis or edema Other: wound vac in place and will be changes on Friday and wound measurements taken
--- OUTSIDE RECORDS SUMMARY | 2021-12-14 16:19 | XMS_ITS ---
:1985 Author Care Team Providers Name Role Phone [facility] Primary [facility] Provider Unavailable Allergies Code Code System Name Reaction Severity Status Onset Penicillins Rash ? Active ? ? Vomiting ? Active ? Medications Name Status Start Date Stop Date ? ? Depo-Provera 150 mg/mL intramuscular suspension Completed 12/08/2006 03/21/2011 1 (one) vial: every 11 weeks Gardasil (PF) [id number]/0.5mL intramuscular romero spension Completed 12/09/2006 03/21/2011 1 (one) vial: as directed Mirena 20 mcg/24 hours (7 yrs) Active ? N ot available 52 mg intrauterine device misoprostol 200 mcg tablet Completed 03/18/201103/21 2 (two) Tablet: Two hours before procedure Suboxone Active ? Not available Valium 5 mg tablet Completed 03/18/2011 04/12/2011 1 Tablet: As directed Problems Name Status Onset Date Source ? Nutritional Deficiency Disorder Active ? History Procedures Date Name Performed by ? ? Adenoidectomy Information not avai lable 07/31/2018 MAMMO, Diagnostic, Tomosynthesis, [facility] Radiology (Internal) Bilateral [address] [address] (Work Place) 08/04/2018 US, Breast, Unilateral [facility] Radiology (Internal) [address] [place] [address] (Work Place) Notes: myringotomy- 1998 Results Lab Results Date Name Specimen Result Interpretation Description Value Range Status Address ? 10/28/2020 SARS CoV 2 SWAB ? 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 Social History Tobacco Smoking Status Current Every Day Smoker Vaccine List Vaccine Type rubella Tdap 12/14/2020?0.5 mL varicella Plan of Care Reminders Provider Appointments None ? ? recorded. Lab None ? ? recorded. Referral None ? ? recorded. Procedures None ? ? recorded. Surgeries None ? ? recorded. Imaging None ? ? recorded. Vitals 07/31/2018 03:20PM Office 20 Height Weight BMI Blood Pressure 152.4 cm 42.64 kg 18.4 kg/m2 94/56 mm[Hg] 07/28/2012 Height Weight Blood Pressure 152.4 cm 43.36 kg 110/62 mm[Hg] 03/21/2011 Height Weight Blood Pressure 152.4 cm 42.64 kg 112/60 mm[Hg] 12/09/2006 Weight Blood Pressure 43.54 kg 116/80 mm[Hg] 09/18/2006 Weight Blood Pressure 43.77 kg 106/76 mm[Hg] 06/24/2006 Weight Blood Pressure 43.54 kg 100/72 mm[Hg] 04/14/2006 Weight Blood Pressure 43.09 kg 94/68 mm[Hg] 02/03/2006 Height Weight 152.4 cm 43.54 kg 11/18/2005 Height Weight Blood Pressure 152.4 cm 45.36 kg 98/56 mm[Hg] 06/11/2005 Weight 45.59 kg 10/17/2004 Weight 45.81 kg 08/10/2004 Height Weight 147.32 cm 44.91 kg
[2021-12-14] MEDS: Normal Saline Flush 10 ML SYR IVP (16:40)
[2021-12-14] MEDS: cefTRIAXone 2 GM/50 ML BAG IVPB (16:41)
--- NOTE | 2021-12-14 16:58 | PT.INIE ---
Date of service: 12/14/21 Time of Service: 16:58 PT Notes Visit Reasons: Dry,Gangrene RLE Physical Therapy Swing Bed Level I Initial Evaluation Date: 12/14/2021 Referring Doctor: Susana Richey MD PT Orders: PT CONSULT: Eval/Treat. Precautions: Fall. Standard. WBAT on R LE with AD. Patient Profile/Admitting Diagnosis:? Nicol is a 36-year-old female with bilateral ankle wounds S/P multiple I and D to stage II pressure ulcer on the R medial and R lateral distal leg/ankle areas and S/P xenograft placement on 11/29/2021 and xenograft replacement on 12/11/2021, thyroid nodule, and hyperthyroidism. She is evalauted under swing level I care for continued physical therapy. PMHX: All Active Problems?(Updated 11/13/21 @ 14:40 by Susana Richey DO) Leukocytosis (leucocytosis) (Acute) Asthma (Chronic) Hypokalemia due to loss of potassium (Acute) Hypoalbuminemia due to protein-calorie malnutrition (Acute) Dry gangrene (Acute) Smoker unmotivated to quit (Acute) Open ankle wound (Acute) Subcutaneous air (Acute) Wound infection (Acute) CAP (community acquired pneumonia) (Acute) Pain, dental (Acute) Medical History?(Updated 11/13/21 @ 14:40 by Susana Richey DO) Narcotic abuse in remission Tachycardia Surgical History?(Updated 11/13/21 @ 10:15 by Jazzy Celaya DO) History of adenoidectomy S/p bilateral myringotomy with tube placement Social History/Home Situation:? Patient lives with somebody in a private home with 4 steps to enter with no rails.? She states that for the past month she has decided to use a single-point cane due to balance issues.? Reports that she fallen 5x in the past month.? Equipment Owned/DME: [facility]PC Subjective: Agreeable to PT consult.? Objective: General Observation: Emotionally labile.? Cachexic.? IV in the R UE. Moffett catheter in place. Dry wound on the sole of the L foot overlying the 3-4th metatarsal heads.? Nurse Jeanna informed.? Wound dressing to R ankle and foot. Swelling seen in R toes and foot. Mental Status: Alert and oriented as to person, place, time, and purpose. Able to pay attention, focus, and respond appropriately. Pain: Denies at rest, 6-7/10 with weight bearing ROM: Right Upper Extremity: ? Shoulder Flexion WFL. Shoulder abduction WFL. Elbow flexion WFL. Wrist flexion WFL. Functional opening and closing of hand WFL. Left Upper Extremity:? Shoulder Flexion WFL. Shoulder abduction WFL. Elbow flexion WFL. Wrist flexion WFL. Functional opening and closing of hand WFL. Right Lower Extremity: Hip flexion WFL. Hip abduction WFL. Knee flexion WFL. Ankle dorsiflexion to neutral. Ankle plantarflexion 20 degrees. Left Lower Extremity:? Hip flexion WFL. Hip abduction WFL. Knee flexion WFL. Ankle dorsiflexion WFL. Ankle plantarflexion WFL. Strength: Right Upper Extremity: Shoulder flexors 4-/5. Shoulder abductors 4-/5. Elbow flexors 4-/5. Elbow extensors 4-/5. Customer Service Trainer strong. Left Upper Extremity: Shoulder flexors 4-/5. Shoulder abductors 4-/5. Elbow flexors 4-/5. Elbow extensors 4-/5. Customer Service Trainer strong. Right Lower Extremity: Hip flexors 4-/5. Hip abductors 4-/5. Knee flexors 4-/5. Knee extensors 4-/5. Ankle dorsiflexors 3-/5. Ankle plantarflexors 3/5. Left Lower Extremity: Hip flexors 4-/5. Hip abductors 4-/5. Knee flexors 4-/5. Knee extensors 4-/5. Ankle dorsiflexors 4-/5. Ankle plantarflexors 4/5. Bed Mobility/Transfers: Supine to sit independent Sit to stand independent Stand to sit independent Bed to reclining chair independent Gait: Able to tolerate level surface ambulation of up to 600 feet with weight bearing as tolerated on the R foot. Patient is able to tolerate forefoot flat onto floor but reports of 10/10 pain if she tries to put her heel (foot flat).? Modified independent with 4WW with all hallway ambulation. Balance: Static Sitting: Normal Dynamic Sitting: Normal Static Standing: Good Dynamic Standing: Fair Special Tests: Mobility Limitations Standardized Measure [facility] 6 clicks Basic Mobility Inpatient Short Form: Raw Score: 23 CMS Score: 11% deficit? ? ? Informed Consent/Education:? Patient was instructed in purpose of PT consult and plan of care. Agreeable to proceed with established PT POC to achieve personal goals. Assessment: Nicol is a 36-year-old female with bilateral ankle wounds S/P multiple I and D to stage II pressure ulcer on the R medial and R lateral distal leg/ankle areas and S/P xenograft placement on 11/29/2021 and xenograft replacement on 12/11/2021, thyroid nodule, and hyperthyroidism. She is evalauted under swing level I care for continued physical therapy. Nicol demonstrates functional mobility decline requiring the use fof FWW for all transfer and ambulation due to limited weight bearing on the R LE.? Patient presents with clinical signs and symptoms consistent with current/admitting diagnoses that have resulted to mobility limitations, gait instability, generalized weakness, and overall ADL decline as demonstrated by the following impairment level findings: 1.? Decreased strength to R ankle major muscle groups 2.? Impaired standing balance 3.? Impaired activity tolerance 4.? Limitation of joint range of motion in R ankle 5.? Pain in R ankle with movement 6.? Swelling in R foot and toes Impairments are contributing to the following functional limitations: 1.? Difficulty with ambulation without assistive device 2.? Increased completion time for mobility ADL performance 3.? Increased risk for falls 4.? Difficulty with managing steps alone safely Patient is assessed as a 01970 moderate complexity based on the following: History: 36-year-old femalewith past medical history as indicated above Examination: Demonstrable impairment in strength, balance, and mobility level with underlying impairments and functional limitations as exhibited above as well as deficit score of 36% utilizing the [facility] Mobility Inpatient Short Form Presentation:? Evolving Decision Makin moderate complexity Goals: Goals X 3 weeks 1. Full AROM for ankle DF and PF to achieve safe gait pattern and reduce fall risk 2. Achieve 5/5 strength for ankle dorsiflexors, plantarflexors, invertors, evertors to facilitate normal gait pattern and reduce fall risk Plan of Care/Treatment Plan: 2x/week for 3 weeks for R ankle joint range of motion, strengthening and gait training. Plan of care has been reviewed with the PROTOTYPE CARPENTER providing the service under Physical Therapy direction. DISCHARGE RECOMMENDATIONS: [] ? Home with no services [] [] ? Home with services [specify] [X] ? Home with outpatient PT. Patient will benefit from outpatient PT services in order to progress mobility level using least restrictive assistive ambulatory device while progressing mobility level to PLOF that will increase ability of patient to remain at home. [] ? SNF for continued rehabilitation [] [] ? [facility] [] [] ? SNF versus LTC based on ability to participate and progress [] TREATMENT CODE/TIME: [id number] 17 minutes beginning at 4:58 PM. Thank you for the opportunity to participate in the care of this patient. Funmi Castañeda PT, DPT, CLT [facility] [place], [place]
[2021-12-14] MEDS: metroNIDAZOLE 500 MG/100 ML BAG 100 MG IVPB (17:42)
[2021-12-14] MEDS: Ascorbic Acid 500 MG TAB PO (20:25)
[2021-12-14] MEDS: Enoxaparin 40 MG/0.4 ML SYR SC (20:25)
[2021-12-14] MEDS: Famotidine 20 MG TAB PO (20:25)
[2021-12-14] MEDS: DULoxetine 20 MG CAP PO (20:25)
[2021-12-14] MEDS: LORazepam 1 MG TAB PO (20:27)
[2021-12-14] MEDS: traMADol 50 MG TAB PO (21:57)
[2021-12-14] MEDS: Gabapentin 300 MG CAP 600 MG PO (21:57)
[2021-12-14 23:44] VITALS: BP 116/84; PULSE 94; RESP 16; TEMP 36.6; O2SAT 99
[2021-12-15 06:14] VITALS: BP 114/69; PULSE 66; RESP 18; TEMP 37.2; O2SAT 98
[2021-12-15] MEDS: Buprenorphine/Naloxone 2 mg/0.5 mg FILM 1 EACH SL (08:20)
[2021-12-15] MEDS: methIMAzole 5 MG TAB PO (08:21)
[2021-12-15] MEDS: DULoxetine 20 MG CAP PO ×2 (08:21→21:00)
[2021-12-15] MEDS: Buprenorphine/Naloxone 8 mg/2 mg FILM 2 EACH SL (08:21)
[2021-12-15] MEDS: LORazepam 1 MG TAB PO ×3 (08:21→21:00)
[2021-12-15] MEDS: Zinc Sulfate 220 MG TAB PO (08:22)
[2021-12-15] MEDS: Famotidine 20 MG TAB PO ×2 (08:22→21:00)
[2021-12-15] MEDS: Cyanocobalamin 500 MCG TAB 1000 MCG PO (08:22)
[2021-12-15] MEDS: Ascorbic Acid 500 MG TAB PO ×2 (08:22→20:59)
[2021-12-15] MEDS: traMADol 50 MG TAB PO ×2 (08:30→21:01)
[2021-12-15] MEDS: Tiotropium Bromide-Respimat 10 PUFF INH 2 PUFF IH (11:22)
[2021-12-15 11:29] VITALS: O2SAT 99
--- NOTE | 2021-12-15 11:51 | PGE_ITS ---
Date of Service Date of service: 12/15/21 Time of Service: 11:51 Assessment and Plan Assessment and plan (1) Dry gangrene: Status: Resolved Assessment and plan: -S/P wound debridement 11/13 and 11/15 then xenografting with AmnioFix 11/29 and 12/11 -Repeat grafting to take place next week -Wound vac remains in place, to be changed tomorrow @10AM -Completed IV antibiotic course -Patient has been tolerant of protein supplements, gained 20lbs since admission -Repeat Prealbumin pending, last level was 7 on 11/17/21 -May be considered for allograft if nutritional status is optimized, otherwise high rate of failure. Xenografting will continue as planned if nutritional status remains suboptimal. -Did not tolerate splinting, exposed tendon nearly completely covered per last operative report, high likelihood of residual limited ROM in right ankle. Regained mobility dependent on patient compliance and graft success. -Minimizing shear forces to encourage graft take while also limiting contracture is our current challenge as this wound is nearly circumferential. (2) Thyroid nodule: Status: Acute Assessment and plan: -Needs follow up radioactive iodine uptake scan, earliest January 04 due to IV contrast. -FNA biopsy likely to proceed once uptake scan performed -TIRADS 4 nodule on right via thyroid US 11/15 -Chest CT with 3 concerning spiculated right-sided lung nodules (upper, mid and lower lobes) per radiology which may coincide with thyroid pathology for possibl e malignancy. Large left sided bullae. Pulmonology consulted 11/26, offered bronchoscopy for biopsy but patient refused, preliminary broad spectrum laboratory testing ordered and repeat CT due by 01/24 prior to outpatient follow up. -Close follow up for thyroid will be arranged, repeat TSH next week, RAIU scan 01/04 or later due to IV contrast administration for chest CT. (3) Positive NINI (antinuclear antibody): Status: Acute Assessment and plan: -Patient had positive NINI testing 1:80 speckled 11/14/21 and 1:160 homogenous pattern 11/26/21 -Follow up rheumatologic labs ordered including Anti-dsDNA, Anti-Burciaga AB, Anti- SSA and Anti-SSB (4) Status post xenograft placement: Status: Acute (5) COPD (chronic obstructive pulmonary disease): Status: Chronic (6) Bullous emphysema: Status: Acute (7) Bronchiectasis: Status: Resolved (8) Hypoalbuminemia due to protein-calorie malnutrition: Status: Acute (9) Smoker unmotivated to quit: Status: Chronic (10) Asthma: Status: Chronic (11) Narcotic abuse in remission: Subjective Subjective Patient reports: no new complaints and afebrile; denies nausea or vomiting Exam Const General: cooperative, comfortable and no acute distress Nutritional Appearance: cachectic (improving overall, now up 20lbs) Eyes General: appearance normal, both eyes and all related structures Resp Effort & Inspection: normal respiratory effort, able to speak in complete sentences, no audible wheezes and no use of accessory muscles Cardio Rate: regular rate and tachycardic (intermittent tachycardia) Rhythm: regular rhythm Skin Wounds: wounds noted (right ankle wound with wound vac in place) Neuro General: patient alert, patient awake and patient oriented x3 Cranial Nerves: CN's II-XI intact bilaterally Cognition: normal cognition Speech: speech normal Sensory Exam: no sensory deficits noted Objective Last Vital Signs Temp 99.0 F 12/15/21 06:14 Pulse 66 12/15/21 06:14 Resp 18 12/15/21 06:14 BP 114/69 12/15/21 06:14 Pulse Ox 99 12/15/21 11:29
[2021-12-15] MEDS: Gabapentin 300 MG CAP PO (14:27)
[2021-12-15 15:49] VITALS: BP 119/67; PULSE 76; RESP 18; TEMP 36.8; O2SAT 97
[2021-12-15] MEDS: Enoxaparin 40 MG/0.4 ML SYR SC (21:01)
[2021-12-15] MEDS: Gabapentin 300 MG CAP 600 MG PO (21:01)
[2021-12-15 23:30] VITALS: BP 111/80; PULSE 81; RESP 18; TEMP 36.8; O2SAT 94
[2021-12-16] MEDS: Tiotropium Bromide-Respimat 10 PUFF INH 2 PUFF IH (08:26)
[2021-12-16] MEDS: traMADol 50 MG TAB 200 MG PO (09:01)
[2021-12-16] MEDS: Buprenorphine/Naloxone 8 mg/2 mg FILM 2 EACH SL (09:02)
[2021-12-16] MEDS: DULoxetine 20 MG CAP PO ×2 (09:02→19:54)
[2021-12-16] MEDS: methIMAzole 5 MG TAB PO (09:02)
[2021-12-16] MEDS: Zinc Sulfate 220 MG TAB PO (09:02)
[2021-12-16] MEDS: Ascorbic Acid 500 MG TAB PO ×2 (09:02→19:54)
[2021-12-16] MEDS: Cyanocobalamin 500 MCG TAB 1000 MCG PO (09:02)
[2021-12-16] MEDS: Famotidine 20 MG TAB PO ×2 (09:02→19:54)
[2021-12-16] MEDS: Buprenorphine/Naloxone 2 mg/0.5 mg FILM 1 EACH SL (09:02)
[2021-12-16] MEDS: LORazepam 1 MG TAB PO ×3 (09:02→22:00)
[2021-12-16 09:21] VITALS: BP 123/84; PULSE 94; RESP 18; TEMP 36.7; O2SAT 100
[2021-12-16] MEDS: Normal Saline Flush 10 ML SYR IVP ×2 (09:36→10:59)
[2021-12-16] MEDS: LORazepam 2 MG/ML VIAL 1 MG IVP ×2 (09:37→10:37)
--- NOTE | 2021-12-16 10:11 | PGE_ITS ---
Date of Service Date of service: 12/16/21 Time of Service: 10:11 Assessment and Plan Assessment and plan (1) Dry gangrene: Status: Resolved Assessment and plan: -S/P wound debridement 11/13 and 11/15 then xenografting with AmnioFix 11/29 and 12/11 -Repeat grafting to take place next week -Wound vac changed today, wounds appear to be healing nicely with excellent granulation, see wound care note for details. -Completed IV antibiotic course -Patient has been tolerant of protein supplements, gained 20lbs since admission -Repeat Prealbumin pending, last level was 7 on 11/17/21 -May be considered for allograft if nutritional status is optimized, otherwise high rate of failure. Xenografting will likely continue as planned if nutritional status remains sub-optimal. -Did not tolerate splinting, exposed tendon nearly completely covered, high likelihood of residual limited ROM in right ankle. Regained mobility dependent on patient compliance and graft success. -Minimizing shear forces to encourage graft take while also limiting contracture is our current challenge as this wound is nearly circumferential. (2) Thyroid nodule: Status: Acute Assessment and plan: -Needs follow up radioactive iodine uptake scan, earliest January 04 due to IV contrast. -FNA biopsy likely to proceed once uptake scan performed -TIRADS 4 nodule/mass on right via thyroid US 11/15 -Chest CT with 3 concerning spiculated right-sided lung nodules (upper, mid and lower lobes) per radiology which may coincide with thyroid pathology for possible malignancy. Large left sided bullae. Pulmonology consulted 11/26, offered bronchoscopy for biopsy but patient refused, preliminary broad spectrum laboratory testing ordered and repeat CT due by 01/24 prior to outpatient follow up. -Close follow up for thyroid will be arranged, repeat TSH next week, RAIU scan 01/04 or later due to IV contrast administration for chest CT. (3) Positive NINI (antinuclear antibody): Status: Acute Assessment and plan: -Patient had positive NINI testing 1:80 speckled 11/14/21 and 1:160 homogenous pattern 11/26/21 -Follow up rheumatologic labs ordered including Anti-dsDNA, Anti-Burciaga AB, Anti- SSA and Anti-SSB (4) Status post xenograft placement: Status: Acute (5) COPD (chronic obstructive pulmonary disease): Status: Chronic (6) Bullous emphysema: Status: Acute (7) Bronchiectasis: Status: Resolved (8) Hypoalbuminemia due to protein-calorie malnutrition: Status: Acute (9) Smoker unmotivated to quit: Status: Chronic (10) Asthma: Status: Chronic (11) Narcotic abuse in remission: Exam Const General: cooperative, comfortable and no acute distress Nutritional Appearance: cachectic (improving overall, now up 20lbs) Eyes General: appearance normal, both eyes and all related structures Resp Effort & Inspection: normal respiratory effort, able to speak in complete sentences, no audible wheezes and no use of accessory muscles Cardio Rate: regular rate and tachycardic (intermittent tachycardia) Rhythm: regular rhythm Skin Wounds: wounds noted (right ankle medial and lateral with excellent granulation, vac changed ) Neuro General: patient alert, patient awake and patient oriented x3 Cranial Nerves: CN's II-XI intact bilaterally Cognition: normal cognition Speech: speech normal Sensory Exam: no sensory deficits noted Objective Last Vital Signs Temp 98.1 F 12/16/21 09:21 Pulse 94 H 12/16/21 09:21 Resp 18 12/16/21 09:21 BP 123/84 12/16/21 09:21 Pulse Ox 100 12/16/21 09:21
--- NOTE | 2021-12-16 10:56 | WOUNDCONS ---
- If Service Date Differs Date of service: 12/16/21 Time of Service: 10:56 Wound Initial Evaluation Narrative: Follow up pictures taken today to track progress of the wound, Surgical services is present and assisting with the change of the wound vac dressing. Dr. Goff was present to look at the wound as well. - Wound Right Ankle Wound Type: Pressure Ulcer Wound General Appearance: Healing Well Wound Bed Greatest Portion: Red (Granulation) Wound Bed Lesser Portion: Yellow (Slough) Wound Length: 9.8 cm Wound Width: 8 cm Right Medial Ankle Wound Type: Pressure Ulcer Wound General Appearance: Healing Well Wound Bed Greatest Portion: Red (Granulation) Wound Bed Lesser Portion: Yellow (Slough) Percent of Wound Bed Granulated/Red: 80 Wound Length: 12.5 cm Wound Width: 9.5 cm Wound is progressing , 80 percent granulation, depth decreasing - Photo Photo: - Recomendation Recomendation:: continue current treatment x 1 more week
[2021-12-16 15:19] VITALS: BP 117/83; PULSE 88; RESP 14; TEMP 36.8; O2SAT 98
[2021-12-16] MEDS: Enoxaparin 40 MG/0.4 ML SYR SC (19:54)
[2021-12-16] MEDS: traMADol 50 MG TAB PO (20:32)
[2021-12-16] MEDS: Gabapentin 300 MG CAP 600 MG PO (20:32)
[2021-12-16 20:36] VITALS: BP 119/82; PULSE 114; RESP 18; TEMP 36.9; O2SAT 98
[2021-12-17 03:44] VITALS: BP 125/84; PULSE 85; RESP 17; TEMP 36.6; O2SAT 98
[2021-12-17 05:36] LABS: Source Nasal/Nares
[2021-12-17 06:21] LABS: COVID-19 PCR Negative (Negative)
[2021-12-17] MEDS: Tiotropium Bromide-Respimat 10 PUFF INH 2 PUFF IH (07:29)
[2021-12-17 07:34] LABS: TSH (W/Ref FT4) 0.01 uIU/mL (0.36-3.74)
[2021-12-17] MEDS: Cyanocobalamin 500 MCG TAB 1000 MCG PO (07:45)
[2021-12-17] MEDS: DULoxetine 20 MG CAP PO (07:46)
[2021-12-17] MEDS: LORazepam 1 MG TAB PO ×3 (07:46→22:22)
[2021-12-17] MEDS: Zinc Sulfate 220 MG TAB PO (07:46)
[2021-12-17] MEDS: Buprenorphine/Naloxone 8 mg/2 mg FILM 2 EACH SL (07:46)
[2021-12-17] MEDS: Buprenorphine/Naloxone 2 mg/0.5 mg FILM 1 EACH SL (07:46)
[2021-12-17] MEDS: Famotidine 20 MG TAB PO ×2 (07:46→20:56)
[2021-12-17] MEDS: Ascorbic Acid 500 MG TAB PO ×2 (07:46→20:55)
[2021-12-17] MEDS: methIMAzole 5 MG TAB PO (07:46)
[2021-12-17 07:58] LABS: FREE T4 1.07 ng/dL (0.76-1.46)
[2021-12-17 08:30] VITALS: BP 121/81; PULSE 94; RESP 16; TEMP 36.8; O2SAT 99
--- NOTE | 2021-12-17 08:51 | W.PM.PROGNOT ---
Date of Service Date of service: 12/17/21 Time of Service: 08:51 Assessment and Plan Assessment and plan (1) Thyroid nodule: Status: Acute Assessment and plan: Pain is being well controlled. Has been participating in PT and has been more mobile within her room. -she is tolerating a high protein diet and has gained 20#'s. -Wound is progressing. Red, beefy granulation tissue and early epithelialization around the edges. (2) Status post xenograft placement: Status: Acute (3) COPD (chronic obstructive pulmonary disease): Status: Chronic (4) Bullous emphysema: Status: Acute (5) Bronchiectasis: Status: Resolved (6) Hypoalbuminemia due to protein-calorie malnutrition: Status: Acute (7) Smoker unmotivated to quit: Status: Chronic (8) Asthma: Status: Chronic (9) Narcotic abuse in remission: Subjective Subjective Interval history since last seen: Nicol reports she is feeling well this morning. She states the dressing change went well yesterday. Denies any fevers, chills or night sweats. Exam Const General: cooperative, healthy appearing and comfortable Orientation: alert and oriented x3 Resp Effort & Inspection: normal respiratory effort, no audible wheezes and no cough Objective Last Vital Signs Temp 36.8 C 12/17/21 08:30 Pulse 94 H 12/17/21 08:30 Resp 16 12/17/21 08:30 BP 121/81 12/17/21 08:30 Pulse Ox 99 12/17/21 08:30 Laboratory Results - last 24 hr 12/17/21 12/17/21 05:15 06:32 TSH 0.01 L Free T4 1.07 COVID-19 Source Nasal/Nares SARS-CoV-2 (PCR) Negative
--- NOTE | 2021-12-17 12:22 | W.NUTCONSULT ---
Date of service: 12/17/21 Time of Service: 12:22 Nutritional Consult ASSESSMENT: Reason for visit: Nutrition consult Ms. Akhtar is eating very well on her high protein nutrition therapy. She is taking CIBs with meals and then enhanced protein milk bid b/t meals. Her calorie and protein intake has been 1800 calories and 70 grams of protein daily respectively. Her caloric intake is 43 g/kg/day and her protein intake is 1.7 g/kg/day both of which are anabolic. Most recent prealbumin was 27 which is well WNL. Although not a direct indicator of nutritional status but rather inflammation, her prealbumin indicates to us that her body is in a better position for healing. On admission her PAB was only 7. She is 42 kg today which is up from her trend of being 38.5 kg for the past week. This represents a 9% weight gain. There was a report of a 20 lb weight gain which I do not see, but regardless, she has had a significant weight gain of 7.7 lbs. Wounds on ankles are noted to be improving. NUTRITIONAL DIAGNOSIS: Increased nutritional needs related to wounds. INTERVENTION: Will continue to provide Ms. Akhtar with high protein nutrition therapy. We have offered Karan (glutamine arginine supplements in a liquid form which she declined). I am not sure if glutamine and arginine are available in pill form. They may be beneficial to promote continuation of healing as they are the preferred amino acids in the healing process. I also wonder if there would be any benefit to IV vitamins and minerals in addition to PO as they would be obviously best absorbed and utilized that way. MONITORING AND EVALUATION: Will continue to monitor PO, offer a variety of high protein supplements to keep it interesting for her. Please weigh Ms. Akhtar daily to help us best assess her nutritional status. Wound healing improvement will be another evaluation of her nutritional status. Thank you for the consult. Time Spent in Nutritional Counseling and Treatment: 0
[2021-12-17] MEDS: Gabapentin 300 MG CAP PO (14:58)
--- NOTE | 2021-12-17 14:58 | PHA.REVIEW ---
Pharmacy Admission Review - Admission Clinical Review (Last Updated 11/28/21 @ 20:46 by Susana Richey, DO) Positive NINI (antinuclear antibody) (Acute) Thyroid nodule (Acute) Status post xenograft placement (Acute) Bullous emphysema (Acute) Hypoalbuminemia due to protein-calorie malnutrition (Acute) Penicillins Allergy (Unknown, Verified 11/13/21 14:49) Hives Resuscitation Status Full Code Height 4 ft 11.84 in Weight 42 kg - Renal Dosing Medications needing adjustments: Reviewed (Crcl ~64.4 mL/min current meds okay) - Anticoagulation DVT Prophylaxis: Reviewed Medications: Enoxaparin Therapeutic Anticoagulation: N/A - Opiate Usage Evaluate Pain Scale/Pains Meds: Reviewed Scheduled Bowel Reg ordered if on Opiates?: No (has prn meds ordered) - Relevant Labs Electrolytes, C-Reactive P, ESR: N/A - DM Control Insulin Dosing: N/A - Heart Failure/DE EF%, ANDREA's, B-Blockers, Diuretics: N/A - BP Control BP Control: Blood Pressure 121/81 Blood Pressure 125/84 If elevated: N/A (BP has been within normal limits so far since the pt changed to swingbed) - Qtc Review If Elevated: N/A - IV to PO Switch IV Medications: N/A - Home Meds Home Med List reviewed: Reviewed Relevent Home Meds Not ordered & why?: ferrous gluconate (pt did receive some IV iron on acute admission) - Current meds Current Medication Order Review: Reviewed - Comments Comments/Follow Ups: Watch VS, labs and for med changes (possible need of addition BM meds, possible renal dose adjustments).
[2021-12-17 16:00] VITALS: BP 111/81; PULSE 100; RESP 16; TEMP 36.5; O2SAT 99
[2021-12-17] MEDS: DULoxetine 30 MG CAP PO (20:55)
[2021-12-17] MEDS: Enoxaparin 40 MG/0.4 ML SYR SC (20:56)
[2021-12-17 23:28] VITALS: BP 117/85; PULSE 101; RESP 16; TEMP 36.2; O2SAT 99
[2021-12-17] MEDS: Gabapentin 300 MG CAP 600 MG PO (23:40)
[2021-12-17] MEDS: traMADol 50 MG TAB PO (23:40)
[2021-12-18] MEDS: Tiotropium Bromide-Respimat 10 PUFF INH 2 PUFF IH (07:28)
[2021-12-18] MEDS: Famotidine 20 MG TAB PO ×2 (07:57→21:02)
[2021-12-18] MEDS: Cyanocobalamin 500 MCG TAB 1000 MCG PO (07:57)
[2021-12-18] MEDS: Zinc Sulfate 220 MG TAB PO (07:57)
[2021-12-18] MEDS: methIMAzole 5 MG TAB PO (07:58)
[2021-12-18] MEDS: Ascorbic Acid 500 MG TAB PO ×2 (07:58→21:02)
[2021-12-18] MEDS: DULoxetine 30 MG CAP PO ×2 (07:58→21:01)
[2021-12-18] MEDS: Buprenorphine/Naloxone 8 mg/2 mg FILM 2 EACH SL (07:59)
[2021-12-18] MEDS: Buprenorphine/Naloxone 2 mg/0.5 mg FILM 1 EACH SL (07:59)
[2021-12-18 08:00] VITALS: BP 102/67; PULSE 88; RESP 12; TEMP 36.7; O2SAT 97
[2021-12-18] MEDS: LORazepam 1 MG TAB PO ×3 (08:00→22:21)
[2021-12-18] MEDS: traMADol 50 MG TAB PO (08:08)
--- NOTE | 2021-12-18 11:33 | PT.INTREAT ---
Date of service: 12/18/21 Time of Service: 11:33 PT Notes Visit Reasons: Dry Gangrene/Stage III Pressure Ulcer Physical Therapy Inpatient Treatment Note Date: 12/18/2021 Precautions: Fall. Standard. WBAT on R LE with AD. Subjective: Patient states that she has an upcoming grafting on December 25, 2021 and her discharge will depend on how the surgery will facilitate recovery. States that she has been trying her best to walk as often as she is able in the hallway. Objective: General Observation:? Wound dressing to right foot and ankle.? Wound vacuum in place. Mental Status: Alert and oriented as to person, place, time, and purpose. Able to pay attention, focus, and respond appropriately. Pain: 5/10 on R ankle with attempts at foot flat with ambulation activity Bed Mobility/Transfers: Supine to sit independent Sit to stand independent Stand to sit independent Bed to reclining chair independent Gait: Able to tolerate level surface ambulation of up to 600 feet with weight bearing as tolerated on the R foot. Patient is able to tolerate forefoot flat onto floor but reports of 5/10 pain if she tries to put her heel this afternoon.? Modified independent with 4WW with all hallway ambulation. THERA EX: Initiated gentle passive stretching to right gastrocsoleus muscles with 10-second hold repeated 5 times with no increase in pain from patient. Instruction provided to patient on how to correctly perform partial lunges to facilitate active stretching gastrocsoleus muscle health for 10 pounds each time repeated at least 5 times. Also provided education and training on self stretching strategy aspects of use each of bed and with the right foot place on the seat of the front wheeled walker with the patient pushing to help 10 pounds x 10 reps. Balance: Static Sitting: Normal Dynamic Sitting: Normal Static Standing: Fair Dynamic Standing: Fair Assessment: Weight up to 92.7 pounds. Passive dorsiflexion to right ankle allows up to 10 degrees from neutral before onset of pain. Active dorsiflexion to neutral only. Patient to continue with other strengthening exercises for B hips and knees as previously instructed. DISCHARGE RECOMMENDATIONS: [] ? Home with no services [] [] ? Home with services [specify] [X] ? Home with outpatient PT. Patient will benefit from outpatient PT services in order to progress mobility level using least restrictive assistive ambulatory device while progressing mobility level to PLOF that will increase ability of patient to remain at home. [] ? SNF for continued rehabilitation [] [] ? Long-Term Care [] [] ? SNF versus LTC based on ability to participate and progress [] TREATMENT CODE/TIME:? 30667 x 23 minutes beginning at 11:33 AM.
[2021-12-18] MEDS: Normal Saline Flush 10 ML SYR IVP (12:06)
[2021-12-18] MEDS: Acetaminophen 325 MG TAB 650 MG PO (12:18)
[2021-12-18] MEDS: Gabapentin 300 MG CAP PO (13:45)
[2021-12-18 15:16] LABS: SS-A Antibody 6.4 Units (<20.0)
[2021-12-18 15:18] LABS: SS-B (La) Ab, IgG 2.4 Units (<20.0)
[2021-12-18 15:21] LABS: Sm (Smith) Ab, IgG 2.2 Units (<20.0)
[2021-12-18 15:26] LABS: dsDNA Ab, IgG <12.3 IU/mL (<30.0)
--- NOTE | 2021-12-18 15:34 | WOUNDCARE ---
Wound Care Report : Wound Vac set at 125 continuously today 12/17/21. Volume of substance in wound vac is 250 ml. as of 1400 today
[2021-12-18 15:52] VITALS: BP 118/76; PULSE 89; RESP 17; TEMP 36.6; O2SAT 98
--- NOTE | 2021-12-18 20:13 | W.PM.PROGNOT ---
Date of Service Date of service: 12/18/21 Time of Service: 20:14 Assessment and Plan Assessment and plan (1) Positive NINI (antinuclear antibody): Status: Acute (2) Thyroid nodule: Status: Acute (3) Status post xenograft placement: Status: Acute (4) COPD (chronic obstructive pulmonary disease): Status: Chronic (5) Bullous emphysema: Status: Acute (6) Depression: Status: Chronic (7) Hyperthyroidism: Status: Chronic (8) Hypoalbuminemia due to protein-calorie malnutrition: Status: Acute (9) Asthma: Status: Chronic Assessment and plan: -labs from 12/15 reviewed. noted from nutrition reviewed. cont to follow recommendations cont PT will change wound vac on Friday. plan for xenograft vs STSG next week. with STSG- i'm concerned she does not have adequate donor site/woud infections/pain control. will decide on friday Objective Last Vital Signs Temp 36.6 C 12/18/21 15:52 Pulse 89 12/18/21 15:52 Resp 17 12/18/21 15:52 BP 118/76 12/18/21 15:52 Pulse Ox 98 12/18/21 15:52 Laboratory Results - last 24 hr 12/16/21 08:40 SS-A Antibody 6.4 SS-B Antibody 2.4 Sm ([place]aga) Antibody 2.2 Double Strand DNA Ab <12.3
[2021-12-18] MEDS: Enoxaparin 40 MG/0.4 ML SYR SC (21:02)
[2021-12-18 23:35] VITALS: BP 108/66; PULSE 109; RESP 18; TEMP 36.7; O2SAT 99
[2021-12-19] MEDS: Gabapentin 300 MG CAP 600 MG PO ×2 (00:04→22:22)
[2021-12-19] MEDS: traMADol 50 MG TAB PO ×3 (00:04→22:23)
[2021-12-19] MEDS: Tiotropium Bromide-Respimat 10 PUFF INH 2 PUFF IH (07:31)
[2021-12-19 08:00] VITALS: BP 124/81; PULSE 62; RESP 17; TEMP 36.4; O2SAT 100
[2021-12-19] MEDS: Cyanocobalamin 500 MCG TAB 1000 MCG PO (08:08)
[2021-12-19] MEDS: Zinc Sulfate 220 MG TAB PO (08:09)
[2021-12-19] MEDS: Famotidine 20 MG TAB PO ×2 (08:09→19:58)
[2021-12-19] MEDS: DULoxetine 30 MG CAP PO ×2 (08:09→19:58)
[2021-12-19] MEDS: LORazepam 1 MG TAB PO ×3 (08:09→19:58)
[2021-12-19] MEDS: Ascorbic Acid 500 MG TAB PO ×2 (08:09→19:58)
[2021-12-19] MEDS: methIMAzole 5 MG TAB PO (08:09)
[2021-12-19] MEDS: Buprenorphine/Naloxone 8 mg/2 mg FILM 2 EACH SL (08:10)
[2021-12-19] MEDS: Buprenorphine/Naloxone 2 mg/0.5 mg FILM 1 EACH SL (08:12)
[2021-12-19] MEDS: Gabapentin 300 MG CAP PO (14:56)
[2021-12-19 15:30] VITALS: BP 120/83; PULSE 90; RESP 17; TEMP 36.6; O2SAT 98
[2021-12-19] MEDS: Enoxaparin 40 MG/0.4 ML SYR SC (19:59)
[2021-12-19 23:45] VITALS: BP 121/82; PULSE 86; RESP 18; TEMP 36.9; O2SAT 98
[2021-12-20 07:24] VITALS: BP 110/76; PULSE 87; RESP 16; TEMP 37.3; O2SAT 99
--- NOTE | 2021-12-20 07:39 | W.PM.PROGNOT ---
Documented by User: JUAN ANTONIO Rae 12/20/21 07:42 Date of Service Date of service: 12/20/21 Time of Service: 07:40 Assessment and Plan Assessment and plan (1) Positive NINI (antinuclear antibody): Status: Acute (2) Thyroid nodule: Status: Acute (3) Status post xenograft placement: Status: Acute (4) COPD (chronic obstructive pulmonary disease): Status: Chronic (5) Bullous emphysema: Status: Acute (6) Depression: Status: Chronic (7) Hyperthyroidism: Status: Chronic (8) Hypoalbuminemia due to protein-calorie malnutrition: Status: Acute Assessment and plan: Continue working with PT Pain was well controlled this morning Wound Vac change scheduled for Friday. Plan for Xenograft vs STSG next week. (9) Asthma: Status: Chronic Subjective Subjective Interval history since last seen: Arrived with patient ambulating in her room independently with her walker. She states her pain is well controlled. Exam Const General: cooperative, healthy appearing and comfortable Orientation: alert and oriented x3 Resp Effort & Inspection: normal respiratory effort, no audible wheezes and no cough Objective Last Vital Signs Temp 37.3 C 12/20/21 07:24 Pulse 87 12/20/21 07:24 Resp 16 12/20/21 07:24 BP 110/76 12/20/21 07:24 Pulse Ox 99 12/20/21 07:24 Documented by User: Susana Richey DO 12/20/21 19:51 Assessment and Plan Assessment and plan (1) Positive NINI (antinuclear antibody): Status: Acute (2) Thyroid nodule: Status: Acute (3) Status post xenograft placement: Status: Acute (4) COPD (chronic obstructive pulmonary disease): Status: Chronic (5) Bullous emphysema: Status: Acute (6) Depression: Status: Chronic (7) Hyperthyroidism: Status: Chronic (8) Hypoalbuminemia due to protein-calorie malnutrition: Status: Acute (9) Asthma: Status: Chronic Assessment and plan: dressing change tomorrow b/t 1-2 approval was obtained for another graft placement cont nutritional support and PT.
[2021-12-20] MEDS: Tiotropium Bromide-Respimat 10 PUFF INH 2 PUFF IH (08:16)
[2021-12-20] MEDS: Zinc Sulfate 220 MG TAB PO (09:05)
[2021-12-20] MEDS: methIMAzole 5 MG TAB PO (09:06)
[2021-12-20] MEDS: Cyanocobalamin 500 MCG TAB 1000 MCG PO (09:06)
[2021-12-20] MEDS: Ascorbic Acid 500 MG TAB PO ×2 (09:06→22:45)
[2021-12-20] MEDS: Famotidine 20 MG TAB PO ×2 (09:07→22:44)
[2021-12-20] MEDS: DULoxetine 30 MG CAP PO ×2 (09:07→22:44)
[2021-12-20] MEDS: traMADol 50 MG TAB PO ×2 (09:08→22:44)
[2021-12-20] MEDS: LORazepam 1 MG TAB PO ×3 (09:08→22:45)
[2021-12-20] MEDS: Buprenorphine/Naloxone 2 mg/0.5 mg FILM 1 EACH SL (09:09)
[2021-12-20] MEDS: Buprenorphine/Naloxone 8 mg/2 mg FILM 2 EACH SL (09:09)
--- NOTE | 2021-12-20 09:31 | CMPROGNOTE_ITS ---
- If Service Date Differs Date of service: 12/20/21 Time of Service: 09:31 Care Management Progress Note S/O: Nicol was sound asleep each time CM tried to meet with her today. Nicol has been pleasant and appropriate during her stay. She has been ambulating independently in the halls, multiple times a day. She enjoys putting puzzles together in her room, doing her hair, makeup and nails. She has also been listening to music, watching TV and talking with friends and family on her cell phone. She is keeping herself as busy as possible. Per surgery, Wound Vac change is scheduled for Friday, followed by surgical intervention next week in the OR. A: 36 year old female admitted to [facility] on 11/13/21 for Dry, Gangrene RLE. P: Nicol will remain on SWB1 for IV antibiotics and wound care s/p skin graft on 12/11/21. Further surgical intervention is planned for next week, xenograft vs. STSG. Discharge planning has been unpredictable; anticipated discharge delay into December. Anticipate CM will continue to coordinate and support in person family visitation.
[2021-12-20] MEDS: Gabapentin 300 MG CAP PO (13:58)
[2021-12-20 19:39] VITALS: BP 129/89; PULSE 114; RESP 18; TEMP 36.2; O2SAT 98
[2021-12-20] MEDS: Gabapentin 300 MG CAP 600 MG PO (22:45)
[2021-12-20] MEDS: Enoxaparin 40 MG/0.4 ML SYR SC (22:46)
[2021-12-20 23:33] VITALS: BP 116/78; PULSE 95; RESP 18; TEMP 36.6; O2SAT 98
[2021-12-21 07:17] VITALS: BP 105/66; PULSE 85; RESP 15; TEMP 37.3; O2SAT 99
[2021-12-21] MEDS: Tiotropium Bromide-Respimat 10 PUFF INH 2 PUFF IH (08:00)
[2021-12-21] MEDS: LORazepam 1 MG TAB PO (08:06)
[2021-12-21] MEDS: Ascorbic Acid 500 MG TAB PO (08:06)
[2021-12-21] MEDS: DULoxetine 30 MG CAP PO (08:07)
[2021-12-21] MEDS: methIMAzole 5 MG TAB PO (08:07)
[2021-12-21] MEDS: Zinc Sulfate 220 MG TAB PO (08:07)
[2021-12-21] MEDS: Famotidine 20 MG TAB PO (08:08)
[2021-12-21] MEDS: Normal Saline Flush 10 ML SYR IVP ×3 (08:09→13:54)
[2021-12-21] MEDS: Cyanocobalamin 500 MCG TAB 1000 MCG PO (08:09)
[2021-12-21] MEDS: Buprenorphine/Naloxone 8 mg/2 mg FILM 2 EACH SL (08:10)
[2021-12-21] MEDS: Buprenorphine/Naloxone 2 mg/0.5 mg FILM 1 EACH SL (08:10)
--- NOTE | 2021-12-21 10:32 | PDOC.CMACT ---
- If Service Date Differs Date of service: 12/21/21 Time of Service: 10:32 Care Management Activity Note Nicol has been pleasant and appropriate during her stay. She has been ambulating independently in the halls, multiple times a day. She enjoys putting puzzles together in her room, doing her hair, makeup and nails. She has also been listening to music, watching TV and talking with friends and family on her cell phone. She plays games on her phone, watches movies on her patient laptop and enjoys adult coloring-including on the large mural on Med/Surg. She is enjoying time with visitors including her and children during visitor hours as well. She is keeping herself as busy as possible. Per surgery, Wound Vac change is scheduled for Friday, followed by surgical intervention next week in the OR.
[2021-12-21] MEDS: traMADol 50 MG TAB 200 MG PO (12:18)
[2021-12-21] MEDS: LORazepam 2 MG/ML VIAL 1 MG IVP (13:26)
[2021-12-21] MEDS: Gabapentin 300 MG CAP PO (13:27)
[2021-12-21] MEDS: LORazepam 2 MG/ML VIAL (13:54)
--- NOTE | 2021-12-21 14:14 | W.PM.PROGNOT ---
Date of Service Date of service: 12/21/21 Time of Service: 14:14 Assessment and Plan Assessment and plan (1) Positive NINI (antinuclear antibody): Status: Acute (2) Thyroid nodule: Status: Acute (3) Status post xenograft placement: Status: Acute (4) COPD (chronic obstructive pulmonary disease): Status: Chronic (5) Bullous emphysema: Status: Acute (6) Depression: Status: Chronic (7) Hyperthyroidism: Status: Chronic (8) Hypoalbuminemia due to protein-calorie malnutrition: Status: Acute (9) Asthma: Status: Chronic Assessment and plan: -pt has been nicotine free since her admission. -using subxone and free for recreational drug use -doing well w/ PT -We do have institutional approval for another round of the appligraft. At this point the wound has filled in nicely. The tendons are 100% covered. WIll repeate graft on Friday adn than work towards epithelialization adn discharge. -arrangements made for surgery Monday 12/25 Subjective Subjective Interval history since last seen: Pt is doing well. no headaches. No CP or SOB. no productive cough. no dysuria. no leg pain or swelling. She is gaining more flexibility in her joint and doing well w/ PT. she continues to eat a high protein diet and is slowly gaining weight and muscle mass meds reviewed Exam Skin Other: Size:?medial Width ??8?cm Length???11 ?cm Depth??? .2?cm Lateral Width ?6??cm Length??7? ?cm Depth??? .1?cm ? Undermining: no ? Wound Base: ?granular:100 ? Slough: 0 ? Surrounding Tissue: slt maceration in the skin bridge across the dorsum of foot also area in the mid ant keys- started as a pressure ulcer from tubing- 2x2 cm w/ no depth. no infection. slt larger. had mepilex dressing on previously. ? Pain: moderate. defn imporved. ? Signs of infection: resolved ? Abx: completed Wound location: RLE * see pics from wound RN's ? ? Objective Last Vital Signs Temp 37.3 C 12/21/21 07:17 Pulse 85 12/21/21 07:17 Resp 15 12/21/21 07:17 BP 105/66 12/21/21 07:17 Pulse Ox 99 12/21/21 07:17
[2021-12-21 15:16] VITALS: BP 112/83; PULSE 143; RESP 22; TEMP 36.7; O2SAT 96
[2021-12-21 23:25] VITALS: BP 127/86; PULSE 103; RESP 22; TEMP 37.7; O2SAT 98
[2021-12-22] MEDS: Ascorbic Acid 500 MG TAB PO ×3 (00:02→21:01)
[2021-12-22] MEDS: DULoxetine 30 MG CAP PO ×3 (00:03→21:01)
[2021-12-22] MEDS: Gabapentin 300 MG CAP 600 MG PO ×2 (00:03→21:02)
[2021-12-22] MEDS: traMADol 50 MG TAB PO ×3 (00:03→21:03)
[2021-12-22] MEDS: Enoxaparin 40 MG/0.4 ML SYR SC ×2 (00:04→21:03)
[2021-12-22] MEDS: LORazepam 1 MG TAB PO ×4 (00:04→21:01)
[2021-12-22] MEDS: Famotidine 20 MG TAB PO ×3 (00:04→21:02)
[2021-12-22 07:30] VITALS: BP 127/87; PULSE 95; RESP 17; TEMP 37.4; O2SAT 95
[2021-12-22] MEDS: Tiotropium Bromide-Respimat 10 PUFF INH 2 PUFF IH (08:27)
[2021-12-22] MEDS: Buprenorphine/Naloxone 2 mg/0.5 mg FILM 1 EACH SL (08:33)
[2021-12-22] MEDS: Buprenorphine/Naloxone 8 mg/2 mg FILM 2 EACH SL (08:33)
[2021-12-22] MEDS: Zinc Sulfate 220 MG TAB PO (08:34)
[2021-12-22] MEDS: methIMAzole 5 MG TAB PO (08:34)
[2021-12-22] MEDS: Cyanocobalamin 500 MCG TAB 1000 MCG PO (08:34)
--- NOTE | 2021-12-22 10:34 | W.PM.PROGNOT ---
Date of Service Date of service: 12/22/21 Time of Service: 10:34 Assessment and Plan Assessment and plan (1) Positive NINI (antinuclear antibody): Status: Acute (2) Thyroid nodule: Status: Acute (3) Status post xenograft placement: Status: Acute (4) COPD (chronic obstructive pulmonary disease): Status: Chronic (5) Bullous emphysema: Status: Acute (6) Depression: Status: Chronic (7) Hyperthyroidism: Status: Chronic (8) Hypoalbuminemia due to protein-calorie malnutrition: Status: Acute (9) Asthma: Status: Chronic Assessment and plan: -Continues to do well clinically -Repeat grafting next week with Dr. Richey -Continue to encourage PT/ambulation and elevation of foot when in bed to help edema subside -Recommend Mepilex over anterior keys wound site where skin breakdown is present from vac tubing -Continue supportive care Subjective Subjective Patient reports: no new complaints and feels better Exam Const General: cooperative, comfortable and no acute distress Nutritional Appearance: average body habitus Resp Effort & Inspection: normal respiratory effort, able to speak in complete sentences, no audible wheezes and not labored Cardio Rate: regular rate Rhythm: regular rhythm Skin Wounds: wounds noted (right ankle wound with vac in place, good seal, right keys wound w/ eschar) Objective Last Vital Signs Temp 99.3 F 12/22/21 07:30 Pulse 95 H 12/22/21 07:30 Resp 17 12/22/21 07:30 BP 127/87 12/22/21 07:30 Pulse Ox 95 12/22/21 07:30
[2021-12-22] MEDS: Gabapentin 300 MG CAP PO (14:09)
[2021-12-22 14:48] VITALS: BP 128/86; PULSE 100; RESP 18; TEMP 36.8; O2SAT 96
[2021-12-22 22:55] VITALS: BP 124/76; PULSE 98; RESP 17; TEMP 36.8; O2SAT 97
[2021-12-23] MEDS: Normal Saline Flush 10 ML SYR IVP ×2 (04:00→07:59)
[2021-12-23] MEDS: methIMAzole 5 MG TAB PO (07:58)
[2021-12-23] MEDS: Cyanocobalamin 500 MCG TAB 1000 MCG PO (07:58)
[2021-12-23] MEDS: Buprenorphine/Naloxone 2 mg/0.5 mg FILM 1 EACH SL (07:58)
[2021-12-23] MEDS: Ascorbic Acid 500 MG TAB PO ×2 (07:58→19:11)
[2021-12-23] MEDS: Zinc Sulfate 220 MG TAB PO (07:58)
[2021-12-23] MEDS: Buprenorphine/Naloxone 8 mg/2 mg FILM 2 EACH SL (07:58)
[2021-12-23] MEDS: DULoxetine 30 MG CAP PO ×2 (07:59→19:12)
[2021-12-23] MEDS: Famotidine 20 MG TAB PO ×2 (07:59→19:12)
[2021-12-23] MEDS: LORazepam 1 MG TAB PO ×3 (07:59→19:10)
[2021-12-23 08:00] VITALS: BP 123/81; PULSE 80; RESP 17; TEMP 36.3; O2SAT 98
[2021-12-23] MEDS: Tiotropium Bromide-Respimat 10 PUFF INH 2 PUFF IH (08:22)
--- NOTE | 2021-12-23 13:43 | W.PM.PROGNOT ---
Date of Service Date of service: 12/23/21 Time of Service: 13:43 Assessment and Plan Assessment and plan (1) Positive NINI (antinuclear antibody): Status: Acute (2) Thyroid nodule: Status: Acute (3) Status post xenograft placement: Status: Acute (4) COPD (chronic obstructive pulmonary disease): Status: Chronic (5) Bullous emphysema: Status: Acute (6) Depression: Status: Chronic (7) Hyperthyroidism: Status: Chronic (8) Hypoalbuminemia due to protein-calorie malnutrition: Status: Acute (9) Asthma: Status: Chronic Assessment and plan: -Continues to do well clinically -Requested increase in Ativan dose to help with anxiety TID dosing changed to QID so long as this does not prevent her from active participation in her care -Repeat grafting next week with Dr. Richey -Continue to encourage PT/ambulation and elevation of foot when in bed to help edema subside -Recommend Mepilex over anterior keys wound site where skin breakdown is present from vac tubing -Continue supportive care Exam Const General: cooperative, comfortable and no acute distress Nutritional Appearance: average body habitus Resp Effort & Inspection: normal respiratory effort, able to speak in complete sentences, no audible wheezes and not labored Cardio Rate: regular rate Rhythm: regular rhythm Skin Wounds: wounds noted (right ankle wound with vac in place, good seal, right keys wound w/ eschar) Objective Last Vital Signs Temp 97.3 F L 12/23/21 08:00 Pulse 80 12/23/21 08:00 Resp 17 12/23/21 08:00 BP 123/81 12/23/21 08:00 Pulse Ox 98 12/23/21 08:00
[2021-12-23] MEDS: Gabapentin 300 MG CAP PO (13:52)
--- NOTE | 2021-12-23 13:54 | CMACTNOTE_ITS ---
- If Service Date Differs Date of service: 12/23/21 Time of Service: 13:54 Care Management Activity Note Nicol was doing her make-up when met with her. She continues to be surrounded by completed puzzles, plants, ruth, books, and has her cellphone, patient laptop and wireless music set up (Moni). Nicol shared gratitude for her care and course, reporting she was returning to the OR on Friday. She stated visitation has been difficult due to restrictions of two at a time, as the kids can not all come in at the same time and her son Flo, Claudia has been unable to see her since the change in visitor policy. Besides the stress of being disconnected from her family and loved ones, Nicol continues to make significant gains while at [facility] and shares no additional concerns at this time.
[2021-12-23 15:43] VITALS: BP 130/76; PULSE 86; RESP 16; TEMP 36.6; O2SAT 99
[2021-12-23] MEDS: Enoxaparin 40 MG/0.4 ML SYR SC (19:12)
[2021-12-23] MEDS: traMADol 50 MG TAB PO (21:56)
[2021-12-23] MEDS: Gabapentin 300 MG CAP 600 MG PO (21:56)
[2021-12-23 23:20] VITALS: BP 116/82; PULSE 111; RESP 18; TEMP 36.8; O2SAT 98
[2021-12-24 07:01] LABS: ALT 22 U/L (14-59); AST 13 U/L (15-37); Albumin 3.1 g/dL (3.4-5.0); Alkaline Phosphatase 66 U/L (46-116); Anion Gap 6.3 mmol/L (3-11); BUN 17 mg/dL (7-18); Bilirubin, Total 0.1 mg/dL (0.2-1.0); CO2 26.7 mmol/L (21.0-32.0); CREATININE 0.6 mg/dL (0.55-1.02); Calcium 8.9 mg/dL (8.5-10.1); Calculated LDL 124 mg/dL (<100); Chloride 107 mmol/L (98-107); Cholesterol 174 mg/dL (<200); Glucose 95 mg/dL (74-106); HDL Cholesterol 39 mg/dL (40-60); Potassium 3.9 mmol/L (3.5-5.1); Sodium 140 mmol/L (136-145); TSH (W/Ref FT4) 0.01 uIU/mL (0.36-3.74); Total Protein 7.7 g/dL (6.4-8.2); Triglyceride 59 mg/dL (<150)
[2021-12-24 07:03] LABS: Iron 38 ug/dL (50-170); Total Iron Binding Capacity 228 ug/dL (250-450); Transferrin Sat 17 % (15-50)
[2021-12-24 07:20] LABS: FREE T4 1.16 ng/dL (0.76-1.46)
[2021-12-24] MEDS: Tiotropium Bromide-Respimat 10 PUFF INH 2 PUFF IH (07:45)
[2021-12-24] MEDS: DULoxetine 30 MG CAP PO ×2 (08:36→19:52)
[2021-12-24] MEDS: Buprenorphine/Naloxone 2 mg/0.5 mg FILM 1 EACH SL (08:36)
[2021-12-24] MEDS: Buprenorphine/Naloxone 8 mg/2 mg FILM 2 EACH SL (08:36)
[2021-12-24] MEDS: Famotidine 20 MG TAB PO ×2 (08:36→19:52)
[2021-12-24] MEDS: Zinc Sulfate 220 MG TAB PO (08:36)
[2021-12-24] MEDS: Ascorbic Acid 500 MG TAB PO ×2 (08:36→19:52)
[2021-12-24] MEDS: Cyanocobalamin 500 MCG TAB 1000 MCG PO (08:37)
[2021-12-24] MEDS: LORazepam 1 MG TAB PO ×4 (08:37→19:57)
[2021-12-24] MEDS: methIMAzole 5 MG TAB PO (08:37)
[2021-12-24] MEDS: traMADol 50 MG TAB PO ×2 (08:39→21:21)
[2021-12-24 10:04] VITALS: BP 133/91; PULSE 94; RESP 18; TEMP 36.6; O2SAT 96
[2021-12-24] MEDS: Gabapentin 300 MG CAP PO (13:52)
--- NOTE | 2021-12-24 15:36 | PT.INPN ---
Date of service: 12/24/21 Time of Service: 15:36 PT Notes Visit Reasons: Dry Gangrene/Stage III Pressure Ulcer Physical Therapy Swing Bed Level I Progress Note Date: 12/24/2021 Dates of Service: 12/14/2021 through 12/24/2021 Precautions: Fall. Standard. WBAT on R LE with AD. Patient Profile/Admitting Diagnosis:? Nicol is a 36-year-old female with bilateral ankle wounds S/P multiple I and D to stage II pressure ulcer on the R medial and R lateral distal leg/ankle areas and S/P xenograft placement on 11/29/2021 and xenograft replacement on 12/11/2021,? thyroid nodule, and hyperthyroidism. She is evalauted under swing level I care for continued physical therapy. Subjective: States that placement of the wound vacuum is limiting her ability to further bend ankle upwards without causing too much pain. Objective: General Observation: Wound vacuum on R leg and ankle. Mental Status: Alert and oriented as to person, place, time, and purpose. Able to pay attention, focus, and respond appropriately. Pain: 7-8/20 at end range of dorsiflexion on R ROM: Right Lower Extremity: Hip flexion WFL. Hip abduction WFL. Knee flexion WFL. Ankle dorsiflexion to neutral. Ankle plantarflexion 20 degrees. Left Lower Extremity:? Hip flexion WFL. Hip abduction WFL. Knee flexion WFL. Ankle dorsiflexion WFL. Ankle plantarflexion WFL. Strength: Right Lower Extremity: Hip flexors 4-/5. Hip abductors 4-/5. Knee flexors 4-/5. Knee extensors 4-/5. Ankle dorsiflexors 3-/5. Ankle plantarflexors 3/5. Left Lower Extremity: Hip flexors 4-/5. Hip abductors 4-/5. Knee flexors 4-/5. Knee extensors 4-/5. Ankle dorsiflexors 4-/5. Ankle plantarflexors 4/5. Bed Mobility/Transfers: Supine to sit independent Sit to stand independent Stand to sit independent Bed to reclining chair independent Gait: Able to tolerate level surface ambulation of up to 600 feet with weight bearing as tolerated on the R foot. Patient is able to tolerate forefoot flat onto floor but reports of 10/10 pain if she tries to put her heel (foot flat).? Modified independent with 4WW with all hallway ambulation. Balance: Static Sitting: Normal Dynamic Sitting: Normal Static Standing: Good Dynamic Standing: Fair Special Tests: Mobility Limitations Standardized Measure [facility] AM-PAC 6 clicks Basic Mobility Inpatient Short Form: Raw Score: 23 CMS Score: 11% deficit? ? ? Informed Consent/Education:? Patient was instructed in purpose of PT consult and plan of care. Agreeable to proceed with established PT POC to achieve personal goals. Assessment: Ankle dorsiflexion on R continues to be limited due to pain and gastrocsoleus contracture formation. Pain in R ankle also limits gentle passive stretching and effective push off on the R during R LE acceleration during gait. Use of FWW continue to be needed due to pain level and need for wound vacuum container. Will consult with Nurse Ayers as to optimal placement of wound vaccum that will allow for unencumbered dorsiflexion on R ankle during ambulation activity. Patient presents with clinical signs and symptoms consistent with current/admitting diagnoses that have resulted to mobility limitations, gait instability, generalized weakness, and overall ADL decline as demonstrated by the following impairment level findings: 1.? Decreased strength to R ankle major muscle groups 2.? Limitation of joint range of motion in R ankle 3.? Pain in R ankle with movement Impairments are contributing to the following functional limitations: 1.? Difficulty with ambulation without assistive device 2.? Increased completion time for mobility ADL performance 3.? Increased risk for falls 4.? Difficulty with managing steps alone safely Patient is assessed as a 55757 moderate complexity based on the following: History: 36-year-old femalewith past medical history as indicated above Examination: Demonstrable impairment in strength, balance, and mobility level with underlying impairments and functional limitations as exhibited above as well as deficit score of 36% utilizing the [facility] Mobility Inpatient Short Form Presentation:? Evolving Decision Makin moderate complexity Goals: Goals X 3 weeks 1. Full AROM for ankle DF and PF to achieve safe gait pattern and reduce fall risk NOT MET, CONTINUE 2. Achieve 5/5 strength for ankle dorsiflexors, plantarflexors, invertors, evertors to facilitate normal gait pattern and reduce fall risk NOT MET, CONITNUE Plan of Care/Treatment Plan: 2x/week for 3 weeks for R ankle joint range of motion, strengthening and gait training.? Plan of care has been reviewed with the HOME HEALTH CARE PHYSICIAN providing the service under Physical Therapy direction. DISCHARGE RECOMMENDATIONS: [] ? Home with no services [] [] ? Home with services [specify] [X] ? Home with outpatient PT. Patient will benefit from outpatient PT services in order to progress mobility level using least restrictive assistive ambulatory device while progressing mobility level to PLOF that will increase ability of patient to remain at home. [] ? SNF for continued rehabilitation [] [] ? Group Home Care [] [] ? SNF versus LTC based on ability to participate and progress [] TREATMENT CODE/TIME: 31228 x 25 minutes beginning at 15:36 PM. Thank you for the opportunity to participate in the care of this patient. Funmi Castañeda PT, DPT, CLT [facility] [place], [place]
[2021-12-24 15:53] VITALS: BP 121/82; PULSE 100; RESP 16; TEMP 36.8; O2SAT 96
[2021-12-24 19:49] VITALS: BP 106/70; PULSE 104; RESP 17; TEMP 36.8; O2SAT 99
[2021-12-24] MEDS: Enoxaparin 40 MG/0.4 ML SYR SC (19:51)
[2021-12-24] MEDS: Normal Saline Flush 10 ML SYR IVP (19:53)
[2021-12-24] MEDS: IRON SUCROSE COMPLEX 200 MG in Normal Saline 100 ML 400 MG IVPB (20:59)
[2021-12-24] MEDS: Gabapentin 300 MG CAP 600 MG PO (21:20)
[2021-12-25] MEDS: Lactated Ringers 1,000 ML 100 ML IV ×2 (00:32→10:08)
[2021-12-25 00:53] VITALS: BP 125/82; PULSE 86; RESP 16; TEMP 37.4; O2SAT 98
[2021-12-25 07:14] VITALS: BP 129/83; PULSE 87; RESP 18; TEMP 36.8; O2SAT 97
[2021-12-25] MEDS: Tiotropium Bromide-Respimat 10 PUFF INH 2 PUFF IH (07:36)
[2021-12-25] MEDS: Famotidine 20 MG TAB PO ×2 (07:53→20:23)
[2021-12-25] MEDS: LORazepam 1 MG TAB PO ×4 (07:53→20:23)
[2021-12-25] MEDS: DULoxetine 30 MG CAP PO ×2 (07:53→20:23)
[2021-12-25] MEDS: Zinc Sulfate 220 MG TAB PO (07:54)
[2021-12-25] MEDS: Buprenorphine/Naloxone 8 mg/2 mg FILM 2 EACH SL (07:54)
[2021-12-25] MEDS: Cyanocobalamin 500 MCG TAB 1000 MCG PO (07:54)
[2021-12-25] MEDS: methIMAzole 5 MG TAB PO (07:54)
[2021-12-25] MEDS: Buprenorphine/Naloxone 2 mg/0.5 mg FILM 1 EACH SL (07:54)
[2021-12-25] MEDS: Ascorbic Acid 500 MG TAB PO ×2 (07:54→20:23)
--- NOTE | 2021-12-25 11:50 | W.ANESPRE ---
General Info Date of Service Date Performed: 12/25/21 Height: 4 ft 11.84 in Weight: 42 kg Body Mass Index (BMI): 18.1 Surgical Procedure: Operation Date: 12/25/21 12:40 Proposed Procedure Side Surgeon p Skin Graft and Dressing Change Right Susana Richey, Meds Allergies and Home Medications Allergies Allergy/AdvReac Type Severity Reaction Status Date / Time Penicillins Allergy Unknown Hives Verified 11/13/21 14:49 Home Medication Medication Instructions Recorded levonorgestrel 20 mcg/24 hours (7 1 unit IU DAILY 08/22/15 yrs) 52 mg intrauterine device (Mirena) ferrous gluconate 324 mg (38 mg 324 mg PO DAILY 11/13/21 iron) tablet buprenorphine 2 mg-naloxone 0.5 mg 1 film SUBLINGUAL DAILY 11/14/21 sublingual film (Suboxone) buprenorphine 8 mg-naloxone 2 mg 2 film SUBLINGUAL DAILY 11/14/21 sublingual film (Suboxone) Current Visit Medications: Current Medications Generic Name Dose Route Start Last Admin Trade Name Freq PRN Reason Stop Dose Admin Acetaminophen 650 mg 12/14/21 15:34 12/18/21 12:18 Acetaminophen 325 Mg Tab PO 650 mg Q6H PRN PRN Administration Albuterol Sulfate 2.5 mg 12/14/21 15:29 Albuterol 2.5 Mg/3 Ml Inh Soln Vial UPD Q4H PRN PRN Ascorbic Acid 500 mg 12/14/21 20:00 12/25/21 07:54 Ascorbic Acid 500 Mg Tab PO 500 mg BID HANSA Administration Buprenorphine/Naloxone 2 each 12/15/21 08:30 12/25/21 07:54 Buprenorphine/Naloxone 8 Mg/2 Mg Film SL 2 each DAILY HANSA Administration Buprenorphine/Naloxone 1 each 12/15/21 08:30 12/25/21 07:54 Buprenorphine/Naloxone 2 Mg/0.5 Mg Film SL 1 each DAILY HANSA Administration Cyanocobalamin 1,000 mcg 12/15/21 08:30 12/25/21 07:54 Cyanocobalamin 500 Mcg Tab PO 1,000 mcg DAILY HANSA Administration Duloxetine HCl 30 mg 12/17/21 20:00 12/25/21 07:53 Duloxetine 30 Mg Cap PO 30 mg BID HANSA Administration Enoxaparin Sodium 40 mg 12/14/21 20:00 12/24/21 19:51 Enoxaparin 40 Mg/0.4 Ml Syr SC 40 mg Q24H HANSA Administration Famotidine 20 mg 12/14/21 20:00 12/25/21 07:53 Famotidine 20 Mg Tab PO 20 mg BID HANSA Administration Gabapentin 600 mg 12/14/21 22:00 12/24/21 21:20 Gabapentin 300 Mg Cap PO 600 mg HS HANSA Administration Gabapentin 300 mg 12/15/21 14:00 12/24/21 13:52 Gabapentin 300 Mg Cap PO 300 mg DAILY@1400 HANSA Administration Hydroxyzine Pamoate 25 mg 12/14/21 15:32 Hydroxyzine Pamoate 25 Mg Cap PO TID PRN PRN Sodium Chloride 500 mls @ 0 mls/hr 12/14/21 15:45 Saline 500ml Bag IV PRN PRN As Directed Ringer's Solution 1,000 mls @ 100 mls/hr 12/25/21 00:00 12/25/21 10:08 IV 100 mls/hr INFUSION HANSA Administration IV Miscellaneous Supplies 1 each 12/14/21 15:45 Iv Access IV DIRECTED [facility] Lactobacillus Acidophilus/Casei 1 cap 12/15/21 08:30 12/25/21 07:53 L. Acidophilus, Casei, Rhamnosus Cap PO 1 cap DAILY [facility] Administration Lidocaine HCl 50 ml 12/14/21 15:45 Lidocaine 4% Topical Solution 50 Ml Btl MM DIRECTED [facility] Lorazepam 1 mg 12/21/21 13:00 12/24/21 11:36 Lorazepam 2 Mg/Ml Vial IVP Not Given 1300 [facility] Lorazepam 1 mg 12/23/21 20:00 12/25/21 11:46 Lorazepam 1 Mg Tab PO 1 mg QID [facility] Administration Megestrol Acetate 80 mg 12/14/21 16:00 12/25/21 11:46 Megestrol 40 Mg Tab PO Not Given QID [facility] Methimazole 5 mg 12/15/21 08:30 12/25/21 07:54 Methimazole 5 Mg Tab PO 5 mg DAILY [facility] Administration Multi-Ingredient Supplement 1 ounce 12/14/21 20:00 12/25/21 07:55 Protein Nutritional Supplement 16 Gm 1 Ounce Packet PO Not Given TID HANSA Nicotine 1 cartridge 12/14/21 15:32 Nicotine 10 Mg/Cartridge 30 Cart/Pkg IH Q2H PRN PRN Ondansetron HCl 4 mg 12/14/21 15:30 Ondansetron 4 Mg/2 Ml Vial IVP Q4H PRN PRN Polyethylene Glycol 17 gm 12/14/21 15:31 Polyethylene Glycol 3350 17 Gm Packet PO DAILY PRN PRN Sodium Chloride 0 ml 12/14/21 15:44 12/24/21 19:53 Normal Saline Flush 10 Ml Syr IVP 30 ml PRN PRN Administration Sodium Chloride 4 ml 12/23/21 15:00 Sodium Chloride 7% For Inhalation 4 Ml Vial IH BID PRN PRN Tiotropium [place] 2 puff 12/15/21 08:30 12/25/21 07:36 Tiotropium [place]-Respimat 10 Puff Inh IH 2 puffs DAILY HANSA Administration Tramadol HCl 50 mg 12/14/21 22:00 12/24/21 21:21 Tramadol 50 Mg Tab PO 50 mg HS HANSA Administration Tramadol HCl 50 mg 12/15/21 08:30 12/25/21 08:49 Tramadol 50 Mg Tab PO Not Given [email or web address] HANSA Zinc Sulfate 220 mg 12/15/21 08:30 12/25/21 07:54 Zinc Sulfate 220 Mg Tab PO 220 mg DAILY HANSA Administration PFSH Active Problems Active Problems: Problem Status Onset Code Positive NINI (antinuclear antibody) R76.8 Thyroid nodule E04.1 Status post xenograft placement Z98.890 COPD (chronic obstructive pulmonary disease) J44.9 Bullous emphysema J43.9 Depression F32.A Hyperthyroidism E05.90 Hypoalbuminemia due to protein-calorie malnutrition E88.09, E46 Smoker unmotivated to quit F17.200 Asthma J45.909 Medical History Medical History (Updated 12/15/21 @ 12:41 by Lizzy Myrick DO) Hypokalemia due to loss of potassium Narcotic abuse in remission Surgical History Surgical History (Updated 11/29/21 @ 22:08 by Susana Richey DO) History of adenoidectomy S/p bilateral myringotomy with tube placement Tobacco Smoking/Tobacco Use Status: Current every day Tobacco Type: cigarettes Smoking cigarettes per day: 10 Alcohol Alcohol Intake: never Substance Use Substance use: Current Sobriety Substance use type: former substance user Vital Signs and Lab Results Vital Signs Most Recent Vital Signs in EMR: Most Recent Vital Signs Temp Pulse Resp BP Pulse Ox 36.8 C 87 18 129/83 97 12/25/21 07:14 12/25/21 07:14 12/25/21 07:14 12/25/21 07:14 12/25/21 07:14 Lab Results Result Diagrams: 12/24/21 06:05 Blood Type / Crossmatch: No Data to Display Complete Blood Count: White Blood Count 8.97 10^3/uL (4.4-10.8) 12/15/21 06:45 12/15/21 Red Blood Count 4.33 10^6/uL (3.93-5.22) 12/15/21 06:45 12/15/21 Hemoglobin 12.3 g/dL (11.2-15.7) 12/15/21 06:45 12/15/21 Hematocrit 40.6 % (36.0-46.0) 12/15/21 06:45 12/15/21 Platelet Count 360 10^3/uL (130-400) 12/15/21 06:45 12/15/21 Complete Metabolic Panel: Sodium Level 140 mmol/L (136-145) 12/24/21 06:05 12/24/21 Potassium Level 3.9 mmol/L (3.5-5.1) 12/24/21 06:05 12/24/21 Chloride Level 107 mmol/L (98-107) 12/24/21 06:05 12/24/21 Carbon Dioxide Level 26.7 mmol/L (21.0-32.0) 12/24/21 06:05 12/24/21 Blood Urea Nitrogen 17 mg/dL (7-18) 12/24/21 06:05 12/24/21 Creatinine 0.6 mg/dL (0.55-1.02) 12/24/21 06:05 12/24/21 Estimated GFR/1.73 m2 >= 60.00 (mL/min/1.73m2) 12/24/21 06:05 12/24/21 Magnesium Level 2.1 mg/dL (1.8-2.4) 12/15/21 06:45 12/15/21 Calcium Level 8.9 mg/dL (8.5-10.1) 12/24/21 06:05 12/24/21 Albumin 3.1 g/dL (3.4-5.0) L 12/24/21 06:05 12/24/21 Glucose Level 95 mg/dL (74-106) 12/24/21 06:05 12/24/21 C-Reactive Protein 0.09 mg/dL (0.0-0.3) 12/10/21 06:30 12/10/21 Liver Function Panel: Alanine Aminotransferase (ALT/SGPT) 22 U/L (14-59) 12/24/21 06:05 12/24/21 Aspartate Amino Transf (AST/SGOT) 13 U/L (15-37) L 12/24/21 06:05 12/24/21 Coagulation Panel: D-Dimer 508 ng/mlFEU (<500) H 12/10/21 06:30 12/10/21 Cardiac Panel: No Data to Display Arterial Blood Gas: No Data to Display Venous Blood Gas: No Data to Display Pancreas Panel: No Data to Display Thyroid Panel: Thyroid Stimulating Hormone (TSH) 0.01 uIU/mL (0.36-3.74) L 12/24/21 06:05 12/24/21 Total Triiodothyronine 170 ng/dL (97-169) H 12/10/21 06:30 12/10/21 Infectious Disease: Coronavirus (COVID-19)(PCR) Negative (Negative) 12/17/21 05:15 12/17/21 Coronavirus 2019 Source Nasal/Nares 12/17/21 05:15 12/17/21 Blood Cultures: No Data to Display Toxicology Panel: No Data to Display Panel: No Data to Display Imaging and Studies Imaging and Studies Study information below may be from another EMR and interpreted by another provider. Please see original notes in EMR for more complete details. 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) Family History: No Family History of Anesthesia Complications Exercise Tolerance Exercise Tolerance: Metabolic Equivalents>4 Cardiac & Pulmonary Exam Cardiac Exam: Normal S1/S2 Heart Sounds Pulmonary Exam: Clear Bilateral Breath Sounds Implantable Cardiac Device Does patient have a Pacemaker or an ICD?: No Airway Exam Known Difficult Airway: No Mallampati Class: 2 Mouth Opening: Normal (> 3cm) Thyromental Distance: Greater than 3 cm Neck Range of Motion: Full ROM Neck Circumference: Normal Teeth Condition: Generalized Poor Dentition and Loose or Chipped Airway Comments: most teeth are chipped, many missing, denies loose. ASA Classification ASA Score: ASA 2 Emergency Case?: No NPO Status NPO Status: NPO Clears >2 hours, Solids >8 hours Status Status: Not Per Patient Anesthesia Plan Resuscitation Status: Full Code Anesthesia Technique: MAC Anesthesia Airway Planned: Natural Airway Monitors Used: Standard Monitors Preoperative Comments:: GA backup
--- NOTE | 2021-12-25 13:59 | W.PM.HP.N ---
Date of service: 12/25/21 Time of Service: 01:00 Assessment and Plan Assessment and plan (1) Positive NINI (antinuclear antibody): Status: Acute (2) Thyroid nodule: Status: Acute (3) Status post xenograft placement: Status: Acute (4) COPD (chronic obstructive pulmonary disease): Status: Chronic (5) Bullous emphysema: Status: Acute (6) Depression: Status: Chronic (7) Hyperthyroidism: Status: Chronic (8) Hypoalbuminemia due to protein-calorie malnutrition: Status: Acute (9) Asthma: Status: Chronic PFSH All Active Problems (Updated 12/15/21 @ 12:41 by Lizzy Myrick DO) Positive NINI (antinuclear antibody) (Acute) Thyroid nodule (Acute) Status post xenograft placement (Acute) COPD (chronic obstructive pulmonary disease) (Chronic) Bullous emphysema (Acute) Depression (Chronic) Hyperthyroidism (Chronic) Hypoalbuminemia due to protein-calorie malnutrition (Acute) Smoker unmotivated to quit (Chronic) Asthma (Chronic) Medical History (Updated 12/15/21 @ 12:41 by Lizzy Myrick DO) Hypokalemia due to loss of potassium Narcotic abuse in remission Surgical History (Updated 11/29/21 @ 22:08 by Susana Richey DO) History of adenoidectomy S/p bilateral myringotomy with tube placement Social History Smoking/Tobacco Use Status: Current every day Tobacco Type: cigarettes Smoking risk assessment performed?: Yes Alcohol Intake: never Drug use: Current Sobriety Substance use type: former substance user Do you feel safe at home: Yes Do you feel safe in your relationship?: Yes Meds Allergies and Home Medications Allergies Allergy/AdvReac Type Severity Reaction Status Date / Time Penicillins Allergy Unknown Hives Verified 11/13/21 14:49 Home Medications Medication Instructions Recorded Confirmed Type levonorgestrel 20 mcg/24 hours (7 1 unit IU DAILY 08/22/15 12/14/21 History yrs) 52 mg intrauterine device (Mirena) ferrous gluconate 324 mg (38 mg 324 mg PO DAILY 11/13/21 12/14/21 History iron) tablet buprenorphine 2 mg-naloxone 0.5 mg 1 film SUBLINGUAL DAILY 11/14/21 12/14/21 History sublingual film (Suboxone) buprenorphine 8 mg-naloxone 2 mg 2 film SUBLINGUAL DAILY 11/14/21 12/14/21 History sublingual film (Suboxone) Results Labs Result diagrams: 12/24/21 06:05 Last Vital Signs Temp 36.8 C 12/25/21 07:14 Pulse 87 12/25/21 07:14 Resp 18 12/25/21 07:14 BP 129/83 12/25/21 07:14 Pulse Ox 97 12/25/21 07:14
--- NOTE | 2021-12-25 14:00 | W.PM.OP ---
Date of service: 12/25/21 Time of Service: 14:00 Operative Note Operative Note DATE OF PROCEDURE: 12/25/21 PRE-OP DIAGNOSIS: stage III decubitus ulcer PROCEDURE: placement of allograft debridement of secondary wound- 2x2cm SURGEON: Susana Richey ECONOMICS DEPARTMENT CHAIR: Magui Ruvalcaba ANESTHESIA TYPE: Local By Surgeon and MAC Refer to Anesthesia Record ESTIMATED BLOOD LOSS: 0 COMPLICATIONS: None Patient was transported to: PACU Patient's condition: stable Procedure Description: size: lateral: 9x7cm island of epitheliaziation 2x2cm 4 oclock border medial: 36t19ng island of epithialization 1x3xm 4oclock border
[2021-12-25 16:26] VITALS: BP 131/84; PULSE 94; RESP 17; TEMP 36.8; O2SAT 99
[2021-12-25] MEDS: Gabapentin 300 MG CAP PO (17:17)
[2021-12-25] MEDS: Fluconazole 100 MG TAB 200 MG PO (17:20)
[2021-12-25 17:22] VITALS: BP 125/80; PULSE 97; RESP 18; TEMP 36.2; O2SAT 97
[2021-12-25 20:22] VITALS: BP 125/86; PULSE 100; RESP 19; TEMP 37.6; O2SAT 96
[2021-12-25] MEDS: Enoxaparin 40 MG/0.4 ML SYR SC (20:23)
[2021-12-25] MEDS: Normal Saline Flush 10 ML SYR IVP (20:24)
[2021-12-25] MEDS: Gabapentin 300 MG CAP 600 MG PO (21:33)
[2021-12-25] MEDS: traMADol 50 MG TAB PO (21:33)
[2021-12-26 05:44] VITALS: BP 128/93; PULSE 103; RESP 18; TEMP 37.1; O2SAT 99
[2021-12-26] MEDS: Acetaminophen 325 MG TAB 650 MG PO (05:48)
[2021-12-26] MEDS: Tiotropium Bromide-Respimat 10 PUFF INH 2 PUFF IH (07:19)
[2021-12-26 07:25] VITALS: BP 126/87; PULSE 84; RESP 18; TEMP 36.5; O2SAT 97
[2021-12-26] MEDS: Cyanocobalamin 500 MCG TAB 1000 MCG PO (07:38)
[2021-12-26] MEDS: Zinc Sulfate 220 MG TAB PO (07:38)
[2021-12-26] MEDS: traMADol 50 MG TAB PO (07:39)
[2021-12-26] MEDS: methIMAzole 5 MG TAB PO (07:39)
[2021-12-26] MEDS: Fluconazole 100 MG TAB PO (07:39)
[2021-12-26] MEDS: LORazepam 1 MG TAB PO ×4 (07:39→21:29)
[2021-12-26] MEDS: Famotidine 20 MG TAB PO ×2 (07:39→21:13)
[2021-12-26] MEDS: Ascorbic Acid 500 MG TAB PO ×2 (07:39→21:13)
[2021-12-26] MEDS: DULoxetine 30 MG CAP PO ×2 (07:39→21:13)
[2021-12-26] MEDS: Buprenorphine/Naloxone 2 mg/0.5 mg FILM 1 EACH SL (07:40)
[2021-12-26] MEDS: Buprenorphine/Naloxone 8 mg/2 mg FILM 2 EACH SL (07:40)
[2021-12-26] MEDS: Gabapentin 300 MG CAP PO (14:03)
[2021-12-26 14:33] VITALS: BP 123/84; PULSE 95; RESP 18; TEMP 36.4; O2SAT 98
[2021-12-26] MEDS: Gabapentin 300 MG CAP 600 MG PO (21:13)
[2021-12-26] MEDS: Normal Saline Flush 10 ML SYR IVP (21:16)
[2021-12-26] MEDS: Enoxaparin 40 MG/0.4 ML SYR SC (21:20)
[2021-12-26 23:25] VITALS: BP 122/85; PULSE 98; RESP 16; TEMP 37.1; O2SAT 98
[2021-12-27] MEDS: Tiotropium Bromide-Respimat 10 PUFF INH 2 PUFF IH (07:28)
[2021-12-27] MEDS: Zinc Sulfate 220 MG TAB PO (07:38)
[2021-12-27] MEDS: LORazepam 1 MG TAB PO ×3 (07:38→21:11)
[2021-12-27] MEDS: Ascorbic Acid 500 MG TAB PO ×2 (07:38→21:08)
[2021-12-27] MEDS: Fluconazole 100 MG TAB PO (07:38)
[2021-12-27] MEDS: traMADol 50 MG TAB PO ×2 (07:38→21:08)
[2021-12-27] MEDS: DULoxetine 30 MG CAP PO ×2 (07:38→21:08)
[2021-12-27] MEDS: methIMAzole 5 MG TAB PO (07:39)
[2021-12-27] MEDS: Buprenorphine/Naloxone 8 mg/2 mg FILM 2 EACH SL (07:39)
[2021-12-27] MEDS: Cyanocobalamin 500 MCG TAB 1000 MCG PO (07:39)
[2021-12-27] MEDS: Famotidine 20 MG TAB PO ×2 (07:39→21:08)
[2021-12-27] MEDS: Buprenorphine/Naloxone 2 mg/0.5 mg FILM 1 EACH SL (07:39)
[2021-12-27 09:51] VITALS: BP 104/68; PULSE 92; RESP 18; TEMP 36.9; O2SAT 96
[2021-12-27] MEDS: Gabapentin 300 MG CAP PO (14:10)
[2021-12-27 14:35] VITALS: BP 119/76; PULSE 114; RESP 18; TEMP 36.9; O2SAT 97
[2021-12-27] MEDS: Gabapentin 300 MG CAP 600 MG PO (21:07)
[2021-12-27] MEDS: Enoxaparin 40 MG/0.4 ML SYR SC (21:08)
[2021-12-27 23:14] VITALS: BP 128/88; PULSE 102; RESP 18; TEMP 36.9; O2SAT 97
[2021-12-28] MEDS: Tiotropium Bromide-Respimat 10 PUFF INH 2 PUFF IH (08:14)
[2021-12-28] MEDS: methIMAzole 5 MG TAB PO (08:40)
[2021-12-28] MEDS: Ascorbic Acid 500 MG TAB PO ×2 (08:41→21:17)
[2021-12-28] MEDS: LORazepam 1 MG TAB PO ×3 (08:42→17:11)
[2021-12-28] MEDS: DULoxetine 30 MG CAP PO ×2 (08:42→21:17)
[2021-12-28] MEDS: Cyanocobalamin 500 MCG TAB 1000 MCG PO (08:42)
[2021-12-28] MEDS: Famotidine 20 MG TAB PO ×2 (08:42→21:17)
[2021-12-28] MEDS: Buprenorphine/Naloxone 8 mg/2 mg FILM 2 EACH SL (08:43)
[2021-12-28] MEDS: Fluconazole 100 MG TAB PO (08:43)
[2021-12-28] MEDS: Zinc Sulfate 220 MG TAB PO (08:43)
[2021-12-28] MEDS: Buprenorphine/Naloxone 2 mg/0.5 mg FILM 1 EACH SL (08:43)
[2021-12-28 08:53] VITALS: BP 130/81; PULSE 91; RESP 16; TEMP 36.8; O2SAT 100
--- NOTE | 2021-12-28 11:50 | INPN_ITS ---
Date of service: 12/28/21 Time of Service: 11:50 PT Notes Visit Reasons: Dry Gangrene/Stage III Pressure Ulcer Physical Therapy Swing Bed Level I Progress Note Date: 12/28/2021 Dates of Service: 12/25/2021 through 12/28/2021 Precautions: Fall. Standard. WBAT on R LE with AD. Subjective: Sad about new diagnosis of fungal infection in her lower R leg. Objective: General Observation: Wound vacuum on R leg and ankle. Mental Status: Alert and oriented as to person, place, time, and purpose. Able to pay attention, focus, and respond appropriately. Pain: 5/10 at end range of dorsiflexion on R ROM: Right Lower Extremity: Hip flexion WFL. Hip abduction WFL. Knee flexion WFL. Ankle dorsiflexion to neutral. Ankle plantarflexion 20 degrees. Left Lower Extremity:? Hip flexion WFL. Hip abduction WFL. Knee flexion WFL. Ankle dorsiflexion WFL. Ankle plantarflexion WFL. Strength: Right Lower Extremity: Hip flexors 4-/5. Hip abductors 4-/5. Knee flexors 4-/5. Knee extensors 4-/5. Ankle dorsiflexors 3-/5. Ankle plantarflexors 3/5. Left Lower Extremity: Hip flexors 4-/5. Hip abductors 4-/5. Knee flexors 4-/5. Knee extensors 4-/5. Ankle dorsiflexors 4-/5. Ankle plantarflexors 4/5. Bed Mobility/Transfers: Supine to sit independent Sit to stand independent Stand to sit independent Bed to reclining chair independent Gait: Decreased dorsiflexion at heel strike on R, painful foot flat on R, minimal push off on R due to pain and wound vacuum placement. THERA EX: GPS to R dorsiflexors x 10 seconds for 5 reps. Active, self stretch to R gastrocsoleus at both the knee and ankle insertions while at edge of bed and R heel is on seat of rollator, 10-sec hold x 5 reps. Balance: Static Sitting: Normal Dynamic Sitting: Normal Static Standing: Good Dynamic Standing: Fair Special Tests: Mobility Limitations Standardized Measure [facility] 6 clicks Basic Mobility Inpatient Short Form: Raw Score: 23 CMS Score: 11% deficit? ? ? Informed Consent/Education:? Patient was instructed in purpose of PT consult and plan of care. Agreeable to proceed with established PT POC to achieve personal goals. Assessment: Ankle dorsiflexion on R continues to be limited due to pain and to gastrocsoleus contracture formation.? Pain in R ankle also limits gentle passive stretching and effective push off on the R during R LE acceleration during gait. Use of FWW continue to be needed due to pain level and need for wound vacuum container.? Will consult with Nurse Ayers as to optimal placement of wound vacuum that will allow for unencumbered dorsiflexion on R ankle during ambulation activity. Patient presents with clinical signs and symptoms consistent with current/admitting diagnoses that have resulted to mobility limitations, gait instability, generalized weakness, and overall ADL decline as demonstrated by the following impairment level findings: 1.? Decreased strength to R ankle major muscle groups 2.? Limitation of joint range of motion in R ankle 3.? Pain in R ankle with movement Impairments are contributing to the following functional limitations: 1.? Impaired gait pattern on the R ankle-- painful foot flat and push off 2.? Increased completion time for mobility ADL performance 3.? Increased risk for falls 4.? Difficulty with managing steps alone safely Patient is assessed as a 89494 moderate complexity based on the following: History: 36-year-old femalewith past medical history as indicated above Examination: Demonstrable impairment in strength, balance, and mobility level with underlying impairments and functional limitations as exhibited above as well as deficit score of 36% utilizing the [facility] Mobility Inpatient Short Form Presentation:? Evolving Decision Makin moderate complexity Goals: Goals X 3 weeks 1. Full AROM for ankle DF and PF to achieve safe gait pattern and reduce fall r isk NOT MET, CONTINUE 2. Achieve 5/5 strength for ankle dorsiflexors, plantarflexors, invertors, evertors to facilitate normal gait pattern and reduce fall risk NOT MET, CONITNUE Plan of Care/Treatment Plan: 2x/week for 3 weeks for R ankle joint range of motion, strengthening and gait training.? Plan of care has been reviewed with the WELL DRILL OPERATOR providing the service under Physical Therapy direction. DISCHARGE RECOMMENDATIONS: [] ? Home with no services [] [] ? Home with services [specify] [X] ? Home with outpatient PT. Patient will benefit from outpatient PT services in order to progress mobility level using least restrictive assistive ambulatory device while progressing mobility level to PLOF that will increase ability of patient to remain at home. [] ? SNF for continued rehabilitation [] [] ? [facility] [] [] ? SNF versus LTC based on ability to participate and progress [] TREATMENT CODE/TIME: 55355 x 15 minutes beginning at 11:50 AM. Thank you for the opportunity to participate in the care of this patient. Funmi Castañeda PT, DPT, CLT [facility] [place], [place]
--- NOTE | 2021-12-28 13:08 | W.PM.PROGNOT ---
Date of Service Date of service: 12/28/21 Time of Service: 13:00 Assessment and Plan Assessment and plan (1) Positive NINI (antinuclear antibody): Status: Acute (2) Thyroid nodule: Status: Acute (3) Status post xenograft placement: Status: Acute (4) COPD (chronic obstructive pulmonary disease): Status: Chronic (5) Bullous emphysema: Status: Acute (6) Depression: Status: Chronic (7) Hyperthyroidism: Status: Chronic (8) Hypoalbuminemia due to protein-calorie malnutrition: Status: Acute (9) Asthma: Status: Chronic Assessment and plan: -Continues to do well clinically, last grafting procedure 12/25 -High protein diet, doing well with nutrition and has gained 13lbs since admission; significant improvement in prealbumin -Continue to encourage PT/ambulation and elevation of foot when in bed -Continue supportive care Subjective Subjective Patient reports: no new complaints, tolerating a regular diet and afebrile Exam Const General: cooperative, comfortable and no acute distress Nutritional Appearance: average body habitus Resp Effort & Inspection: normal respiratory effort, able to speak in complete sentences, no audible wheezes and not labored Cardio Rate: regular rate Rhythm: regular rhythm Skin Wounds: wounds noted (right ankle wound with vac in place, good seal) Neuro General: patient alert, patient awake and patient oriented x3 Objective Last Vital Signs Temp 98.2 F 12/28/21 08:53 Pulse 91 H 12/28/21 08:53 Resp 16 12/28/21 08:53 BP 130/81 12/28/21 08:53 Pulse Ox 100 12/28/21 08:53
--- NOTE | 2021-12-28 14:12 | W.NUTRFU ---
Date of service: 12/28/21 Time of Service: 14:12 Nutrition Note NOTE: Nicol is following High Protein/high calorie diet with protein shakes between meals. Has gained 13 lbs since admission 6 weeks ago. Megace 80 mg daily. Continues to meet 100% nutrient and fluid needs. SUpplemented with essential vitamins/minerals for optimal healing. Will continue to follow and support. Time Spent in Nutritional Counseling and Treatment: 5
[2021-12-28] MEDS: Gabapentin 300 MG CAP PO (14:30)
[2021-12-28 15:21] VITALS: BP 131/87; PULSE 92; RESP 18; TEMP 36.8; O2SAT 99
[2021-12-28] MEDS: Gabapentin 300 MG CAP 600 MG PO (21:17)
[2021-12-28] MEDS: Enoxaparin 40 MG/0.4 ML SYR SC (21:18)
[2021-12-28] MEDS: traMADol 50 MG TAB PO (21:18)
[2021-12-28 23:05] VITALS: BP 116/72; PULSE 82; RESP 18; TEMP 36.6; O2SAT 98
[2021-12-29 07:52] VITALS: BP 127/80; PULSE 84; RESP 16; TEMP 37.6; O2SAT 100
[2021-12-29] MEDS: Cyanocobalamin 500 MCG TAB 1000 MCG PO (08:48)
[2021-12-29] MEDS: Zinc Sulfate 220 MG TAB PO (08:49)
[2021-12-29] MEDS: Ascorbic Acid 500 MG TAB PO ×2 (08:49→19:27)
[2021-12-29] MEDS: methIMAzole 5 MG TAB PO (08:49)
[2021-12-29] MEDS: LORazepam 1 MG TAB PO ×4 (08:49→21:51)
[2021-12-29] MEDS: Famotidine 20 MG TAB PO ×2 (08:49→19:27)
[2021-12-29] MEDS: DULoxetine 30 MG CAP PO ×2 (08:49→19:27)
[2021-12-29] MEDS: Buprenorphine/Naloxone 2 mg/0.5 mg FILM 1 EACH SL (08:50)
[2021-12-29] MEDS: Buprenorphine/Naloxone 8 mg/2 mg FILM 2 EACH SL (08:50)
[2021-12-29] MEDS: Tiotropium Bromide-Respimat 10 PUFF INH 2 PUFF IH (09:03)
[2021-12-29] MEDS: traMADol 50 MG TAB PO ×2 (09:04→21:51)
--- NOTE | 2021-12-29 13:10 | W.PM.PROGNOT ---
Date of Service Date of service: 12/29/21 Time of Service: 13:30 Assessment and Plan Assessment and plan (1) Positive NINI (antinuclear antibody): Status: Acute (2) Thyroid nodule: Status: Acute (3) Status post xenograft placement: Status: Acute (4) COPD (chronic obstructive pulmonary disease): Status: Chronic (5) Bullous emphysema: Status: Acute (6) Depression: Status: Chronic (7) Hyperthyroidism: Status: Chronic (8) Hypoalbuminemia due to protein-calorie malnutrition: Status: Acute (9) Asthma: Status: Chronic Assessment and plan: -Continues to do well clinically, last grafting procedure 12/25 -High protein diet, doing well with nutrition and has gained 13lbs since admission; significant improvement in prealbumin -Continue to encourage PT/ambulation and elevation of foot when in bed -Continue supportive care Subjective Subjective Patient reports: no new complaints, tolerating a regular diet and afebrile; denies nausea or vomiting Exam Const General: cooperative, comfortable and no acute distress Nutritional Appearance: average body habitus Resp Effort & Inspection: normal respiratory effort, able to speak in complete sentences, no audible wheezes and not labored Cardio Rate: regular rate Rhythm: regular rhythm Skin Wounds: wounds noted (right ankle wound with vac in place, good seal) Neuro General: patient alert, patient awake and patient oriented x3 Objective Last Vital Signs Temp 99.7 F H 12/29/21 07:52 Pulse 84 12/29/21 07:52 Resp 16 12/29/21 07:52 BP 127/80 12/29/21 07:52 Pulse Ox 100 12/29/21 07:52
[2021-12-29] MEDS: Gabapentin 300 MG CAP PO (13:49)
[2021-12-29] MEDS: Enoxaparin 40 MG/0.4 ML SYR SC (19:27)
[2021-12-29 20:27] VITALS: BP 153/91; PULSE 106; RESP 19; TEMP 36.4; O2SAT 97
[2021-12-29] MEDS: Gabapentin 300 MG CAP 600 MG PO (21:51)
[2021-12-30 04:05] VITALS: BP 138/85; PULSE 119; RESP 17; TEMP 36.4; O2SAT 98
[2021-12-30 07:59] VITALS: BP 129/90; PULSE 91; RESP 15; TEMP 37.1; O2SAT 97
--- NOTE | 2021-12-30 09:51 | W.PM.PROGNOT ---
Date of Service Date of service: 12/30/21 Time of Service: 09:52 Assessment and Plan Assessment and plan (1) Positive NINI (antinuclear antibody): Status: Acute (2) Thyroid nodule: Status: Acute (3) Status post xenograft placement: Status: Acute (4) COPD (chronic obstructive pulmonary disease): Status: Chronic (5) Bullous emphysema: Status: Acute (6) Depression: Status: Chronic (7) Hyperthyroidism: Status: Chronic (8) Hypoalbuminemia due to protein-calorie malnutrition: Status: Acute (9) Asthma: Status: Chronic Assessment and plan: -Continues to do well clinically, last grafting procedure 12/25 -Updated wound pictures reviewed, no signs of recurrent infection or graft failure -Continue current treatment plan, goal is to encourage wound healing while preventing recurrent infection -High protein diet, doing well with nutrition and has gained 13lbs since admission; significant improvement in prealbumin -Continue to encourage PT/ambulation and elevation of foot when in bed -Continue supportive care Subjective Subjective Patient reports: no new complaints, tolerating a regular diet and afebrile; denies nausea or vomiting Exam Const General: cooperative, comfortable and no acute distress Nutritional Appearance: average body habitus Resp Effort & Inspection: normal respiratory effort, able to speak in complete sentences, no audible wheezes and not labored Cardio Rate: regular rate Rhythm: regular rhythm Skin Wounds: wounds noted (right ankle wound with vac in place, good seal) Neuro General: patient alert, patient awake and patient oriented x3 Objective Last Vital Signs Temp 98.8 F 12/30/21 07:59 Pulse 91 H 12/30/21 07:59 Resp 15 12/30/21 07:59 BP 129/90 12/30/21 07:59 Pulse Ox 97 12/30/21 07:59
[2021-12-30] MEDS: Ascorbic Acid 500 MG TAB PO ×2 (10:01→19:43)
[2021-12-30] MEDS: Zinc Sulfate 220 MG TAB PO (10:01)
[2021-12-30] MEDS: methIMAzole 5 MG TAB PO (10:01)
[2021-12-30] MEDS: Cyanocobalamin 500 MCG TAB 1000 MCG PO (10:01)
[2021-12-30] MEDS: Famotidine 20 MG TAB PO ×2 (10:02→19:43)
[2021-12-30] MEDS: DULoxetine 30 MG CAP PO ×2 (10:02→19:43)
[2021-12-30] MEDS: Buprenorphine/Naloxone 8 mg/2 mg FILM 2 EACH SL (10:03)
[2021-12-30] MEDS: Tiotropium Bromide-Respimat 10 PUFF INH 2 PUFF IH (10:03)
[2021-12-30] MEDS: Buprenorphine/Naloxone 2 mg/0.5 mg FILM 1 EACH SL (10:03)
[2021-12-30] MEDS: LORazepam 1 MG TAB PO ×2 (10:09→16:36)
[2021-12-30] MEDS: traMADol 50 MG TAB 200 MG PO (12:16)
[2021-12-30] MEDS: LORazepam 2 MG/ML VIAL 1 MG IVP (12:35)
[2021-12-30] MEDS: Normal Saline Flush 10 ML SYR IVP ×2 (12:39→19:58)
--- NOTE | 2021-12-30 13:13 | WOUNDCONS ---
- If Service Date Differs Date of service: 12/30/21 Time of Service: 13:13 Wound Initial Evaluation Narrative: Updated pictures of progress for patient progress - Photo Photo: - Treatment/Dressing Change Dressing Types: Tegaderm Absorbent
[2021-12-30] MEDS: Gabapentin 300 MG CAP PO (13:51)
[2021-12-30 15:58] VITALS: BP 105/78; PULSE 108; RESP 15; TEMP 36.8; O2SAT 98
[2021-12-30] MEDS: Enoxaparin 40 MG/0.4 ML SYR SC (19:44)
[2021-12-30] MEDS: traMADol 50 MG TAB PO (21:07)
[2021-12-30] MEDS: Gabapentin 300 MG CAP 600 MG PO (21:08)
[2021-12-30 23:03] VITALS: BP 122/77; PULSE 90; RESP 16; TEMP 36.3; O2SAT 94
[2021-12-31] MEDS: Tiotropium Bromide-Respimat 10 PUFF INH 2 PUFF IH (07:29)
[2021-12-31 09:16] VITALS: BP 119/76; PULSE 89; RESP 16; TEMP 36.6; O2SAT 98
[2021-12-31] MEDS: Buprenorphine/Naloxone 8 mg/2 mg FILM 2 EACH SL (09:20)
[2021-12-31] MEDS: Buprenorphine/Naloxone 2 mg/0.5 mg FILM 1 EACH SL (09:20)
[2021-12-31] MEDS: LORazepam 1 MG TAB PO ×4 (09:20→21:46)
[2021-12-31] MEDS: Cyanocobalamin 500 MCG TAB 1000 MCG PO (09:21)
[2021-12-31] MEDS: Zinc Sulfate 220 MG TAB PO (09:21)
[2021-12-31] MEDS: Famotidine 20 MG TAB PO ×2 (09:21→19:28)
[2021-12-31] MEDS: methIMAzole 5 MG TAB PO (09:21)
[2021-12-31] MEDS: Ascorbic Acid 500 MG TAB PO ×2 (09:22→19:27)
[2021-12-31] MEDS: DULoxetine 30 MG CAP PO ×2 (09:22→19:27)
[2021-12-31] MEDS: traMADol 50 MG TAB PO ×2 (09:28→21:43)
[2021-12-31] MEDS: Gabapentin 300 MG CAP PO (13:00)
[2021-12-31] MEDS: Enoxaparin 40 MG/0.4 ML SYR SC (19:26)
[2021-12-31] MEDS: Normal Saline Flush 10 ML SYR IVP (19:28)
[2021-12-31] MEDS: Gabapentin 300 MG CAP 600 MG PO (21:43)
[2021-12-31 23:37] VITALS: BP 118/79; PULSE 102; RESP 16; TEMP 36.6; O2SAT 96
[2022-01-01] MEDS: Tiotropium Bromide-Respimat 10 PUFF INH 2 PUFF IH (07:20)
[2022-01-01] MEDS: methIMAzole 5 MG TAB PO (09:43)
[2022-01-01] MEDS: DULoxetine 30 MG CAP PO ×2 (09:44→20:03)
[2022-01-01] MEDS: LORazepam 1 MG TAB PO ×4 (09:44→20:09)
[2022-01-01] MEDS: Zinc Sulfate 220 MG TAB PO (09:44)
[2022-01-01] MEDS: Cyanocobalamin 500 MCG TAB 1000 MCG PO (09:44)
[2022-01-01] MEDS: traMADol 50 MG TAB PO ×2 (09:44→22:07)
[2022-01-01] MEDS: Buprenorphine/Naloxone 2 mg/0.5 mg FILM 1 EACH SL (09:45)
[2022-01-01] MEDS: Buprenorphine/Naloxone 8 mg/2 mg FILM 2 EACH SL (09:45)
[2022-01-01] MEDS: Ascorbic Acid 500 MG TAB PO ×2 (09:45→20:03)
[2022-01-01] MEDS: Famotidine 20 MG TAB PO ×2 (09:45→20:03)
[2022-01-01] MEDS: Gabapentin 300 MG CAP PO (14:44)
[2022-01-01] MEDS: Acetaminophen 325 MG TAB 650 MG PO (15:34)
[2022-01-01] MEDS: Normal Saline Flush 10 ML SYR IVP (15:37)
--- NOTE | 2022-01-01 19:53 | W.PM.PROGNOT ---
Date of Service Date of service: 01/01/22 Time of Service: 19:53 Assessment and Plan Assessment and plan (1) Positive NINI (antinuclear antibody): Status: Acute (2) Thyroid nodule: Status: Acute (3) Status post xenograft placement: Status: Acute (4) COPD (chronic obstructive pulmonary disease): Status: Chronic (5) Bullous emphysema: Status: Acute (6) Depression: Status: Chronic (7) Hyperthyroidism: Status: Chronic (8) Hypoalbuminemia due to protein-calorie malnutrition: Status: Acute (9) Smoker unmotivated to quit: Status: Chronic (10) Asthma: Status: Chronic Assessment and plan: I did review the patient's wounds on 12/30. They continue to make excellent progress and granulating in nicely. We are working on dressing system that she can use at home and will require minimal dressing changes. Tentatively considering discharge on 01/14. I do not think she requires any further applications at this point. We will continue to work patient on pain management, nutrition smoking cessation and depression management. Awaiting results of thyroid scan Dressing change on Friday at bedside at approximately 1230. Objective Last Vital Signs Temp 36.6 C 12/31/21 23:37 Pulse 102 H 12/31/21 23:37 Resp 16 12/31/21 23:37 BP 118/79 12/31/21 23:37 Pulse Ox 96 12/31/21 23:37
[2022-01-01] MEDS: Enoxaparin 40 MG/0.4 ML SYR SC (20:03)
[2022-01-01] MEDS: Gabapentin 300 MG CAP 600 MG PO (22:07)
[2022-01-01 22:41] VITALS: BP 121/73; PULSE 11; RESP 22; TEMP 36.6; O2SAT 99
[2022-01-02] MEDS: Tiotropium Bromide-Respimat 10 PUFF INH 2 PUFF IH (07:27)
[2022-01-02] MEDS: Buprenorphine/Naloxone 8 mg/2 mg FILM 2 EACH SL (08:28)
[2022-01-02] MEDS: DULoxetine 30 MG CAP PO ×2 (08:29→21:55)
[2022-01-02] MEDS: Buprenorphine/Naloxone 2 mg/0.5 mg FILM 1 EACH SL (08:29)
[2022-01-02] MEDS: traMADol 50 MG TAB PO ×2 (08:29→21:56)
[2022-01-02] MEDS: LORazepam 1 MG TAB PO ×3 (08:29→21:56)
[2022-01-02] MEDS: Famotidine 20 MG TAB PO ×2 (08:29→21:54)
[2022-01-02] MEDS: Cyanocobalamin 500 MCG TAB 1000 MCG PO (08:30)
[2022-01-02] MEDS: Ascorbic Acid 500 MG TAB PO ×2 (08:30→21:54)
[2022-01-02] MEDS: methIMAzole 5 MG TAB PO (08:30)
[2022-01-02] MEDS: Zinc Sulfate 220 MG TAB PO (08:30)
[2022-01-02 08:40] VITALS: BP 121/74; PULSE 103; RESP 15; TEMP 36.5; O2SAT 95
[2022-01-02] MEDS: traMADol 50 MG TAB 200 MG PO (11:08)
[2022-01-02] MEDS: Normal Saline Flush 10 ML SYR IVP ×4 (11:49→21:54)
[2022-01-02] MEDS: LORazepam 2 MG/ML VIAL 1 MG IVP (12:25)
--- NOTE | 2022-01-02 13:44 | WOUNDCONS ---
- If Service Date Differs Date of service: 01/02/22 Time of Service: 13:51 Wound Initial Evaluation Narrative: Follow up photos of progress to patient's right ankle, recording the progress after the latest skin graft and dressing change. Per Provider, continue cureent plan of care with NPWT. - Photo Photo:
[2022-01-02] MEDS: LORazepam 2 MG/ML VIAL (13:47)
[2022-01-02] MEDS: Gabapentin 300 MG CAP PO (13:49)
[2022-01-02] MEDS: Acetaminophen 325 MG TAB 650 MG PO ×2 (13:49→21:55)
[2022-01-02 18:01] VITALS: BP 107/73; PULSE 81; RESP 16; TEMP 38; O2SAT 97
[2022-01-02] MEDS: Enoxaparin 40 MG/0.4 ML SYR SC (21:53)
[2022-01-02] MEDS: Gabapentin 300 MG CAP 600 MG PO (21:56)
[2022-01-02 23:48] VITALS: BP 129/88; PULSE 54; RESP 17; TEMP 37; O2SAT 99
[2022-01-03] MEDS: LORazepam 1 MG TAB PO ×4 (08:27→21:26)
[2022-01-03] MEDS: traMADol 50 MG TAB PO ×2 (08:27→21:26)
[2022-01-03] MEDS: DULoxetine 30 MG CAP PO ×2 (08:28→21:26)
[2022-01-03] MEDS: Zinc Sulfate 220 MG TAB PO (08:28)
[2022-01-03] MEDS: Famotidine 20 MG TAB PO ×2 (08:28→21:26)
[2022-01-03] MEDS: methIMAzole 5 MG TAB PO (08:28)
[2022-01-03] MEDS: Ascorbic Acid 500 MG TAB PO ×2 (08:28→21:26)
[2022-01-03] MEDS: Cyanocobalamin 500 MCG TAB 1000 MCG PO (08:28)
[2022-01-03] MEDS: Buprenorphine/Naloxone 8 mg/2 mg FILM 2 EACH SL (08:29)
[2022-01-03] MEDS: Buprenorphine/Naloxone 2 mg/0.5 mg FILM 1 EACH SL (08:29)
--- NOTE | 2022-01-03 09:27 | PDOC.CMACT ---
- If Service Date Differs Date of service: 01/03/22 Time of Service: 09:27 Care Management Activity Note Nicol was working on a puzzle when KATARZYNA met with her. She requested additional puzzles which will be provided. She continues to be surrounded by completed puzzles, plants, ruth, books, and has her cellphone, patient laptop and music tablet. Nicol shared anticipating she will return home after Dr. Rossi Vasques confirmed anticipating Nicol will discharge later this month. CM continues to follow.
[2022-01-03] MEDS: Tiotropium Bromide-Respimat 10 PUFF INH 2 PUFF IH (09:54)
[2022-01-03] MEDS: Gabapentin 300 MG CAP PO (15:02)
--- NOTE | 2022-01-03 15:40 | PGE_ITS ---
Date of Service Date of service: 01/03/22 Time of Service: 15:41 Assessment and Plan Assessment and plan (1) Positive NINI (antinuclear antibody): Status: Acute (2) Thyroid nodule: Status: Acute (3) Status post xenograft placement: Status: Acute Assessment and plan: The pt. Presents today for consult of/follow up of acute wound /chronic wound care. The pt.?has been having no nausea or vomiting; no chest pain, shortness of breath or productive cough. ? Patient has been urinating without any difficulties and moving bowel w/ no straining or bleeding. No problems with diarrhea (continues to eat yogurt daily if on abx).? No fever/chills/sweats.?? Patient has no calf pain swelling, tenderness, or redness.? Patient has been sleeping at night with no problems.? Patient has been ambulating without difficulty.? Patient has been able to tolerate a regular diet.? Patient has had good relief with previously prescribed pain meds.? The pt motor/sensory/vascular status is intact without any signs of acute or chronic ischemia. ? Past Medical, social, family histories, medications, and allergies reviewed and updated ? ?ROS: 4 point ROS neg other than the symptoms noted above in the HPI. ? ? Size:? Width ???cm Length?cm Depth?cm ? Undermining: ? Wound Base: ?granular: ? Slough: ? Surrounding Tissue: ? Pain: ? Signs of infection: ? Abx: Wound location: ? ? Vascular status:? Protein status:? Pressure offloading: Smoker:? Diabetes: PLAN ? The wound {:5283} sharply debrided.? ? Informed consent was obtained prior to beginning the procedure.? The area was marked and doubled checked/ID'ed with the pt. (Pause for the CAUSE).? The risks of lesion removal include but are not limited to: bleeding, infection, scarring, reoccurrence, and the need for removal of more tissue, and complications of anesthesia.??? The procedure was done under sterile conditions. Using a scalpel,?all nonviable tissue, eschar, slough, and fibrinous material was sharply excised/ removed. Pressure was held.? No bleeding noted.? Pt tolerated the procedure well without complications.? Depth of debridement: ? Wound care regimen: ? All supplies were arranged Pain meds/RX- see [employer] Pt was given instructions in diet, lifestyle modifications, bathing, supplements, and any newly prescribed medications. ? Pt was given instructions in wound care/activity and warning signs; pain meds, appt. for f/u and if has any questions or concerns, should call our clinic?or go to ER if after hrs.? All concerns addressed and questions answered. ? Pt should F/U: ?Number of minutes spent with the pt. >50% of the time is spent in?Counseling. ? ? (4) COPD (chronic obstructive pulmonary disease): Status: Chronic (5) Bullous emphysema: Status: Acute (6) Depression: Status: Chronic (7) Hyperthyroidism: Status: Chronic (8) Hypoalbuminemia due to protein-calorie malnutrition: Status: Acute (9) Asthma: Status: Chronic Subjective Subjective Interval history since last seen: Pt is doing well. no headaches. No CP or SOB. no productive cough. no dysuria. no leg pain or swelling. protein levels have come up to normal thyroid scan next Friday wounds viewed today. no depth to the wounds and just need to epithelialize over. Wound VAC is no longer making a contact seal. Currently we are using a hydrocolloid gel and a nondressing and this seems to be functioning well. We will try to get a jose's type dressing for when she goes home. Hopefully home at the end of next week 50 minutes is spent with the patient and nursing today in follow-up and reviewing her care her wounds and dressing changes and expectations at home Objective Last Vital Signs Temp 37.0 C 01/02/22 23:48 Pulse 54 L 01/02/22 23:48 Resp 17 01/02/22 23:48 BP 129/88 01/02/22 23:48 Pulse Ox 99 01/02/22 23:48
[2022-01-03] MEDS: Enoxaparin 40 MG/0.4 ML SYR SC (21:25)
[2022-01-03] MEDS: Gabapentin 300 MG CAP 600 MG PO (21:26)
[2022-01-03] MEDS: Normal Saline Flush 10 ML SYR IVP (21:27)
[2022-01-04] MEDS: Tiotropium Bromide-Respimat 10 PUFF INH 2 PUFF IH (07:58)
[2022-01-04 08:28] VITALS: BP 102/72; PULSE 92; RESP 16; TEMP 37; O2SAT 100
[2022-01-04] MEDS: methIMAzole 5 MG TAB PO (08:45)
[2022-01-04] MEDS: DULoxetine 30 MG CAP PO ×2 (08:45→21:07)
[2022-01-04] MEDS: Ascorbic Acid 500 MG TAB PO ×2 (08:47→21:07)
[2022-01-04] MEDS: Zinc Sulfate 220 MG TAB PO (08:47)
[2022-01-04] MEDS: Cyanocobalamin 500 MCG TAB 1000 MCG PO (08:47)
[2022-01-04] MEDS: LORazepam 1 MG TAB PO ×4 (08:47→21:33)
[2022-01-04] MEDS: Buprenorphine/Naloxone 8 mg/2 mg FILM 2 EACH SL (08:48)
[2022-01-04] MEDS: Famotidine 20 MG TAB PO ×2 (08:48→21:06)
[2022-01-04] MEDS: Buprenorphine/Naloxone 2 mg/0.5 mg FILM 1 EACH SL (08:48)
--- NOTE | 2022-01-04 11:16 | W.PM.PROGNOT ---
Date of Service Date of service: 01/04/22 Time of Service: 16:00 Assessment and Plan Assessment and plan (1) Positive NINI (antinuclear antibody): Status: Acute (2) Thyroid nodule: Status: Acute (3) Status post xenograft placement: Status: Acute Assessment and plan: -Dressing change tomorrow -Continue to encourage elevation when in bed to prevent edema -Vac removed -No further grafting planned at this time -High protein diet -Supportive care, PT/OT as tolerated ? (4) COPD (chronic obstructive pulmonary disease): Status: Chronic (5) Bullous emphysema: Status: Acute (6) Depression: Status: Chronic (7) Hyperthyroidism: Status: Chronic (8) Hypoalbuminemia due to protein-calorie malnutrition: Status: Acute (9) Asthma: Status: Chronic Subjective Subjective Patient reports: no new complaints, feels better and tolerating a regular diet Exam Const General: cooperative, comfortable and no acute distress Nutritional Appearance: average body habitus Resp Effort & Inspection: normal respiratory effort, no audible wheezes, not labored and no respiratory distress Cardio Rate: tachycardic Rhythm: regular rhythm Skin Wounds: wounds noted (right ankle wound vac removed, dry dressing in place with ANDREA wrap) Neuro General: patient alert, patient awake and patient oriented x3 Objective Last Vital Signs Temp 98.6 F 01/04/22 08:28 Pulse 92 H 01/04/22 08:28 Resp 16 01/04/22 08:28 BP 102/72 01/04/22 08:28 Pulse Ox 100 01/04/22 08:28
--- NOTE | 2022-01-04 16:41 | PT.INPN ---
Date of service: 01/04/22 Time of Service: 16:41 PT Notes Visit Reasons: Dry Gangrene/Stage III Pressure Ulcer Physical Therapy Swing Bed Level I Progress Note Date: 01/04/2022 Dates of Service: 12/29/2021 through 01/04/2022 Precautions: Fall. Standard. WBAT on R LE with AD. Subjective: States that wound vac has been discharged and that she may get a different one on Friday. Objective: General Observation: Supine in bed Mental Status: Alert and oriented as to person, place, time, and purpose. Able to pay attention, focus, and respond appropriately. Pain: 5-6/10 at end range of dorsiflexion on R ROM: Right Lower Extremity: Hip flexion WFL. Hip abduction WFL. Knee flexion WFL. Ankle dorsiflexion to neutral. Ankle plantarflexion 20 degrees. Left Lower Extremity:? Hip flexion WFL. Hip abduction WFL. Knee flexion WFL. Ankle dorsiflexion WFL. Ankle plantarflexion WFL. Strength: Right Lower Extremity: Hip flexors 4-/5. Hip abductors 4-/5. Knee flexors 4-/5. Knee extensors 4-/5. Ankle dorsiflexors 3-/5. Ankle plantarflexors 3/5. Left Lower Extremity: Hip flexors 4-/5. Hip abductors 4-/5. Knee flexors 4-/5. Knee extensors 4-/5. Ankle dorsiflexors 4-/5. Ankle plantarflexors 4/5. Bed Mobility/Transfers: Supine to sit independent Sit to stand independent Stand to sit independent Bed to reclining chair independent Gait: Modified independent with level surface ambulation. Decreased dorsiflexion at heel strike on R, painful foot flat on R, minimal push off on R due to pain and wound vacuum placement. THERA EX: GPS to R platarflexors x 10 seconds for 5 reps.? Active, self stretch to R gastrocsoleus at both the knee and ankle insertions while in supine and and sitting. Advised patietn to coninue with forward lunges held x 20 for 5 reps at BID to allow active stretch to R plantarflexors. Balance: Static Sitting: Normal Dynamic Sitting: Normal Static Standing: Good Dynamic Standing: Fair Special Tests: Mobility Limitations Standardized Measure [employer] [facility] 6 clicks Basic Mobility Inpatient Short Form: Raw Score: 23 CMS Score: 11% deficit? ? ? Informed Consent/Education:? Patient was instructed in purpose of PT consult and plan of care. Agreeable to continue with established PT POC to achieve personal goals. Assessment: May continue with out patient PT once cleared for discharge for R ankle rehabilitation. Ankle dorsiflexion on R continues to be limited due to pain and to gastrocsoleus contracture formation.? Pain in R ankle also limits gentle passive stretching and effective push off on the R during R LE acceleration during gait. Use of FWW continue to be needed due to pain level and need for wound vacuum container.? Patient presents with clinical signs and symptoms consistent with current/admitting diagnoses that have resulted to mobility limitations, gait instability, generalized weakness, and overall ADL decline as demonstrated by the following impairment level findings: 1.? Decreased strength to R ankle major muscle groups 2.? Limitation of joint range of motion in R ankle 3.? Pain in R ankle with movement/weight ebaring Impairments are contributing to the following functional limitations: 1.? Impaired gait pattern on the R ankle-- painful foot flat and push off 2.? Increased completion time for mobility ADL performance 3.? Increased risk for falls 4.? Difficulty with managing steps alone safely Patient is assessed as a 45453 moderate complexity based on the following: History: 36-year-old femalewith past medical history as indicated above Examination: Demonstrable impairment in strength, balance, and mobility level with underlying impairments and functional limitations as exhibited above as well as deficit score of 36% utilizing the [facility] Mobility Inpatient Short Form Presentation:? Evolving Decision Makin moderate complexity Goals: Goals X 3 weeks 1. Full AROM for ankle DF and PF to achieve safe gait pattern and reduce fall risk NOT MET, CONTINUE 2. Achieve 5/5 strength for ankle dorsiflexors, plantarflexors, invertors, evertors to facilitate normal gait pattern and reduce fall risk NOT MET, CONTINUE Plan of Care/Treatment Plan: 1x/week for 3 weeks for R ankle joint range of motion, strengthening and gait training.? Plan of care has been reviewed with the FOOD SERVICE EMPLOYEE providing the service under Physical Therapy direction. DISCHARGE RECOMMENDATIONS: [] ? Home with no services [] [] ? Home with services [specify] [X] ? Home with outpatient PT. Patient will benefit from outpatient PT services in order to progress mobility level using least restrictive assistive ambulatory device while progressing mobility level to PLOF that will increase ability of patient to remain at home. [] ? SNF for continued rehabilitation [] [] ? [facility] [] [] ? SNF versus LTC based on ability to participate and progress [] TREATMENT CODE/TIME: 35363 x 23 minutes beginning at 16:41 PM. Thank you for the opportunity to participate in the care of this patient. Funmi Castañeda PT, DPT, CLT [facility] [place], [place]
[2022-01-04] MEDS: traMADol 50 MG TAB PO ×2 (16:56→22:40)
[2022-01-04] MEDS: Gabapentin 300 MG CAP PO (16:57)
[2022-01-04 18:37] VITALS: BP 108/66; PULSE 107; RESP 18; TEMP 36.5; O2SAT 95
[2022-01-04] MEDS: Enoxaparin 40 MG/0.4 ML SYR SC (21:06)
[2022-01-04] MEDS: Gabapentin 300 MG CAP 600 MG PO (22:40)
[2022-01-04 23:30] VITALS: BP 117/70; PULSE 112; RESP 17; TEMP 36.7; O2SAT 98
[2022-01-05 07:32] VITALS: BP 111/79; PULSE 110; RESP 18; TEMP 36.9; O2SAT 96
[2022-01-05] MEDS: Buprenorphine/Naloxone 2 mg/0.5 mg FILM 1 EACH SL (07:53)
[2022-01-05] MEDS: Zinc Sulfate 220 MG TAB PO (07:53)
[2022-01-05] MEDS: Buprenorphine/Naloxone 8 mg/2 mg FILM 2 EACH SL (07:53)
[2022-01-05] MEDS: DULoxetine 30 MG CAP PO ×2 (07:54→21:01)
[2022-01-05] MEDS: Famotidine 20 MG TAB PO ×2 (07:54→21:01)
[2022-01-05] MEDS: Cyanocobalamin 500 MCG TAB 1000 MCG PO (07:54)
[2022-01-05] MEDS: traMADol 50 MG TAB PO ×2 (07:54→21:00)
[2022-01-05] MEDS: methIMAzole 5 MG TAB PO (07:54)
[2022-01-05] MEDS: Ascorbic Acid 500 MG TAB PO ×2 (07:55→21:01)
[2022-01-05] MEDS: LORazepam 1 MG TAB PO ×4 (08:00→21:00)
[2022-01-05] MEDS: Tiotropium Bromide-Respimat 10 PUFF INH 2 PUFF IH (10:44)
--- NOTE | 2022-01-05 10:52 | W.PM.PROGNOT ---
Date of Service Date of service: 01/05/22 Time of Service: 09:52 Assessment and Plan Assessment and plan (1) Positive NINI (antinuclear antibody): Status: Acute (2) Thyroid nodule: Status: Acute (3) Status post xenograft placement: Status: Acute Assessment and plan: -Dressing change today per patient, will attempt to assist depending on availability -Continue to encourage elevation when in bed to prevent edema -Vac removed as no further therapeutic benefit -No further grafting planned at this time -High protein diet -Supportive care, PT/OT as tolerated ? (4) COPD (chronic obstructive pulmonary disease): Status: Chronic (5) Bullous emphysema: Status: Acute (6) Depression: Status: Chronic (7) Hyperthyroidism: Status: Chronic (8) Hypoalbuminemia due to protein-calorie malnutrition: Status: Acute (9) Asthma: Status: Chronic Subjective Subjective Patient reports: no new complaints, feels better and tolerating a regular diet Exam Const General: cooperative, comfortable and no acute distress Nutritional Appearance: average body habitus Resp Effort & Inspection: normal respiratory effort, no audible wheezes, not labored and no respiratory distress Cardio Rate: tachycardic Rhythm: regular rhythm Skin Wounds: wounds noted (right ankle wound vac removed, dry dressing in place with ANDREA wrap) Neuro General: patient alert, patient awake and patient oriented x3 Objective Last Vital Signs Temp 98.4 F 01/05/22 07:32 Pulse 110 H 01/05/22 07:32 Resp 18 01/05/22 07:32 BP 111/79 01/05/22 07:32 Pulse Ox 96 01/05/22 07:32
[2022-01-05] MEDS: Gabapentin 300 MG CAP PO (14:57)
[2022-01-05 15:30] VITALS: BP 115/80; PULSE 97; RESP 18; TEMP 36.3; O2SAT 96
[2022-01-05] MEDS: Enoxaparin 40 MG/0.4 ML SYR SC (21:01)
[2022-01-05] MEDS: Gabapentin 300 MG CAP 600 MG PO (21:01)
[2022-01-05 23:21] VITALS: BP 116/76; PULSE 93; RESP 19; TEMP 36.6; O2SAT 97
[2022-01-06] MEDS: Buprenorphine/Naloxone 2 mg/0.5 mg FILM 1 EACH SL (08:10)
[2022-01-06] MEDS: Cyanocobalamin 500 MCG TAB 1000 MCG PO (08:10)
[2022-01-06] MEDS: methIMAzole 5 MG TAB PO (08:10)
[2022-01-06] MEDS: Buprenorphine/Naloxone 8 mg/2 mg FILM 2 EACH SL (08:10)
[2022-01-06] MEDS: DULoxetine 30 MG CAP PO ×2 (08:10→21:45)
[2022-01-06] MEDS: Famotidine 20 MG TAB PO ×2 (08:10→21:44)
[2022-01-06] MEDS: Ascorbic Acid 500 MG TAB PO ×2 (08:11→21:45)
[2022-01-06] MEDS: LORazepam 1 MG TAB PO ×4 (08:11→21:44)
[2022-01-06] MEDS: traMADol 50 MG TAB PO ×2 (08:11→21:44)
[2022-01-06] MEDS: Zinc Sulfate 220 MG TAB PO (08:11)
[2022-01-06 08:15] VITALS: BP 125/80; PULSE 110; RESP 18; TEMP 37; O2SAT 100
[2022-01-06] MEDS: Tiotropium Bromide-Respimat 10 PUFF INH 2 PUFF IH (08:23)
--- NOTE | 2022-01-06 11:12 | PGE_ITS ---
Date of Service Date of service: 01/06/22 Time of Service: 11:01 Assessment and Plan Assessment and plan (1) Positive NINI (antinuclear antibody): Status: Acute (2) Thyroid nodule: Status: Acute Assessment and plan: -Thyroid scan pending to further evaluate TIRADS 4 nodule (3) Status post xenograft placement: Status: Acute Assessment and plan: -Dressing change yesterday, wounds continue to appear healthy with moderate am ount of granulation tissue -Continue to encourage elevation when in bed to prevent edema -Vac removed as no further therapeutic benefit -No further grafting planned at this time -High protein diet -Supportive care, PT/OT as tolerated -Possible BLU dressing later this week ? (4) COPD (chronic obstructive pulmonary disease): Status: Chronic (5) Bullous emphysema: Status: Acute (6) Depression: Status: Chronic (7) Hyperthyroidism: Status: Chronic (8) Hypoalbuminemia due to protein-calorie malnutrition: Status: Acute (9) Asthma: Status: Chronic Subjective Subjective Patient reports: no new complaints, tolerating a regular diet and afebrile Exam Const General: cooperative, comfortable and no acute distress Nutritional Appearance: average body habitus Resp Effort & Inspection: normal respiratory effort, no audible wheezes, not labored and no respiratory distress Cardio Rate: tachycardic Rhythm: regular rhythm Skin Wounds: wounds noted (right ankle wound vac removed, dry dressing in place with ANDREA wrap) Neuro General: patient alert, patient awake and patient oriented x3 Objective Last Vital Signs Temp 98.6 F 01/06/22 08:15 Pulse 110 H 01/06/22 08:15 Resp 18 01/06/22 08:15 BP 125/80 01/06/22 08:15 Pulse Ox 100 01/06/22 08:15
[2022-01-06] MEDS: Gabapentin 300 MG CAP PO (14:39)
[2022-01-06 15:35] VITALS: BP 124/86; PULSE 100; RESP 19; TEMP 36.8; O2SAT 99
--- NOTE | 2022-01-06 18:24 | NUR.NOTE ---
Nursing Note: At this time, patient performed dressing change on right lower extremity with this RN's supervision. Patient is on the phone with sister and showed the sister her wound when it was undressed. Patients sister states Wow Nicol, that is not good. Clearly something isn't working if your leg is not getting better. Why not cut it at this point? I will never understand why you only got two days of antibiotics for a fungal infection when you were on a month of IV antibiotics when you first came in. When does your surgeon come in, I want to talk to them Patient states to the family member Stop being a Patricia-Downer. You are the one who is always telling me to be positive. The skin grafts I had done were at least $10,000 a time. It will not be cut it off, I have to save this skin. Patient educated by this RN on the importance of protein intake for wound healing. Patient educated on allowing this to take time to heal. This RN reminded the patient of how far she has come since she was admitted, and that the medical staff believes that her wounds are healing well. Charge nurse notified of this situation.
[2022-01-06] MEDS: Enoxaparin 40 MG/0.4 ML SYR SC (21:43)
[2022-01-06] MEDS: Acetaminophen 325 MG TAB 650 MG PO (21:44)
[2022-01-06] MEDS: Gabapentin 300 MG CAP 600 MG PO (21:45)
[2022-01-07 00:31] VITALS: BP 127/87; PULSE 87; RESP 16; TEMP 36.9; O2SAT 97
[2022-01-07 08:34] VITALS: BP 125/84; PULSE 92; RESP 19; TEMP 36.6; O2SAT 100
[2022-01-07] MEDS: Tiotropium Bromide-Respimat 10 PUFF INH 2 PUFF IH (08:35)
[2022-01-07] MEDS: Ascorbic Acid 500 MG TAB PO ×2 (08:43→20:13)
[2022-01-07] MEDS: traMADol 50 MG TAB PO ×2 (08:43→22:37)
[2022-01-07] MEDS: DULoxetine 30 MG CAP PO ×2 (08:44→20:12)
[2022-01-07] MEDS: LORazepam 1 MG TAB PO ×4 (08:44→23:58)
[2022-01-07] MEDS: Famotidine 20 MG TAB PO ×2 (08:44→20:12)
[2022-01-07] MEDS: methIMAzole 5 MG TAB PO (08:44)
[2022-01-07] MEDS: Cyanocobalamin 500 MCG TAB 1000 MCG PO (08:45)
[2022-01-07] MEDS: Buprenorphine/Naloxone 8 mg/2 mg FILM 2 EACH SL (08:45)
[2022-01-07] MEDS: Buprenorphine/Naloxone 2 mg/0.5 mg FILM 1 EACH SL (08:45)
[2022-01-07] MEDS: Zinc Sulfate 220 MG TAB PO (08:45)
[2022-01-07] MEDS: Gabapentin 300 MG CAP PO (14:05)
[2022-01-07] MEDS: hydrOXYzine PAMOATE 25 MG CAP PO ×2 (14:22→21:01)
--- NOTE | 2022-01-07 14:55 | NUR.NOTE ---
Nursing Note: 1400: this scribe in with pt's primary RN to assess wounds during dressing change. wounds noted to have several areas with layers of duoderm; duoderm gently removed with gauze to expose healing skin. area of skin between the lateral and medial wounds noted to have darkened areas; once the gel is removed, healthy tissue is present. trace to minimal bleeding noted in these areas. wounds present with no odor at this time. area on pt's keys also contains layers of duoderm gel that is gently removed; scabbing to center of wound with pink to red tissue around scabbed area. pt has an area posteriorly that resulted from the wound vac sponge adhering to the skin; that area is also healing well. posterior ankle healing. pt involved in removing dressing, cleaning wound with RN assistance, and applying the duoderm gel with supervision. wounds measured today by primary RN; please see measurements in dressing intervention. pt continues to state she has a fungal infection and her wounds don't look good. this scribe states that there was concern several weeks ago for a yeast infection when pt was receiving her second graft and that the MD did prescribe a medication for the yeast which was completed.
[2022-01-07 15:30] VITALS: BP 117/80; PULSE 96; RESP 19; TEMP 36.8; O2SAT 97
[2022-01-07] MEDS: Enoxaparin 40 MG/0.4 ML SYR SC (20:12)
[2022-01-07] MEDS: Gabapentin 300 MG CAP 600 MG PO (22:37)
[2022-01-07 23:52] VITALS: BP 115/80; PULSE 94; RESP 19; TEMP 36.8; O2SAT 97
[2022-01-08] MEDS: Tiotropium Bromide-Respimat 10 PUFF INH 2 PUFF IH (07:58)
[2022-01-08] MEDS: Buprenorphine/Naloxone 2 mg/0.5 mg FILM 1 EACH SL (08:05)
[2022-01-08] MEDS: Buprenorphine/Naloxone 8 mg/2 mg FILM 2 EACH SL (08:05)
[2022-01-08] MEDS: methIMAzole 5 MG TAB PO (08:05)
[2022-01-08] MEDS: Zinc Sulfate 220 MG TAB PO (08:05)
[2022-01-08] MEDS: traMADol 50 MG TAB PO ×2 (08:06→21:42)
[2022-01-08] MEDS: Famotidine 20 MG TAB PO ×2 (08:06→20:53)
[2022-01-08] MEDS: DULoxetine 30 MG CAP PO ×2 (08:06→20:53)
[2022-01-08] MEDS: Cyanocobalamin 500 MCG TAB 1000 MCG PO (08:06)
[2022-01-08] MEDS: Ascorbic Acid 500 MG TAB PO ×2 (08:06→20:52)
[2022-01-08] MEDS: LORazepam 1 MG TAB PO ×4 (08:06→21:42)
[2022-01-08 08:59] VITALS: BP 114/80; PULSE 84; RESP 18; TEMP 36.5; O2SAT 97
[2022-01-08] MEDS: hydrOXYzine PAMOATE 25 MG CAP PO ×2 (11:24→20:52)
[2022-01-08] MEDS: Gabapentin 300 MG CAP PO (14:08)
--- NOTE | 2022-01-08 15:00 | W.PM.PROGNOT ---
Date of Service Date of service: 01/08/22 Time of Service: 15:00 Assessment and Plan Assessment and plan (1) Right thyroid nodule: Status: Acute (2) Positive NINI (antinuclear antibody): Status: Acute (3) Thyroid nodule: Status: Acute (4) Status post xenograft placement: Status: Acute (5) COPD (chronic obstructive pulmonary disease): Status: Chronic (6) Bullous emphysema: Status: Acute (7) Depression: Status: Chronic (8) Hyperthyroidism: Status: Chronic (9) Asthma: Status: Chronic (10) Underweight due to inadequate caloric intake: Status: Acute Subjective Subjective Interval history since last seen: Pt is doing well. no headaches. No CP or SOB. no productive cough. no dysuria. no leg pain or swelling. Pt is up walking around. She showered. She has been keepimg busy w/ puzzles/coloring/visting rometely w/ family Exam Resp Effort & Inspection: normal respiratory effort and able to speak in complete sentences Auscultation: clear to auscultation bilaterally Cardio Rate: regular rate Rhythm: regular rhythm Heart Sounds: murmur GI Other: no pain/bleeding/diarrhea Skin Other: RLE wound lateral: 7.5x9cm -no depth medial:11x9.5 x.1cm no tunneling 1% slough- this is debrided w/ gauze sponge. no bleeding. moderate drainage. Pt is able to do her own dressing's She is still taking a high amount of ativan. We have decreased her ultram dosing for dressing changes. working on d/c rrangements. Objective Last Vital Signs Temp 36.5 C 01/08/22 08:59 Pulse 84 01/08/22 08:59 Resp 18 01/08/22 08:59 BP 114/80 01/08/22 08:59 Pulse Ox 97 01/08/22 08:59
[2022-01-08 15:30] VITALS: BP 111/80; PULSE 107; RESP 19; TEMP 36.5; O2SAT 96
[2022-01-08] MEDS: Enoxaparin 40 MG/0.4 ML SYR SC (20:52)
[2022-01-08] MEDS: Acetaminophen 325 MG TAB 650 MG PO (21:41)
[2022-01-08] MEDS: Gabapentin 300 MG CAP 600 MG PO (21:41)
[2022-01-08 23:21] VITALS: BP 114/80; PULSE 84; RESP 18; TEMP 36.7; O2SAT 97
[2022-01-09] MEDS: Tiotropium Bromide-Respimat 10 PUFF INH 2 PUFF IH (07:39)
[2022-01-09 07:55] VITALS: BP 124/79; PULSE 106; RESP 19; TEMP 36.4; O2SAT 96
[2022-01-09] MEDS: Cyanocobalamin 500 MCG TAB 1000 MCG PO (08:59)
[2022-01-09] MEDS: Ascorbic Acid 500 MG TAB PO ×2 (08:59→20:35)
[2022-01-09] MEDS: Buprenorphine/Naloxone 2 mg/0.5 mg FILM 1 EACH SL (08:59)
[2022-01-09] MEDS: Buprenorphine/Naloxone 8 mg/2 mg FILM 2 EACH SL (08:59)
[2022-01-09] MEDS: Famotidine 20 MG TAB PO ×2 (09:00→20:35)
[2022-01-09] MEDS: DULoxetine 30 MG CAP PO ×2 (09:00→20:35)
[2022-01-09] MEDS: methIMAzole 5 MG TAB PO (09:00)
[2022-01-09] MEDS: LORazepam 1 MG TAB PO ×4 (09:01→21:44)
[2022-01-09] MEDS: Zinc Sulfate 220 MG TAB PO (09:01)
[2022-01-09] MEDS: traMADol 50 MG TAB PO ×3 (09:01→21:43)
[2022-01-09] MEDS: Gabapentin 300 MG CAP PO (12:50)
[2022-01-09] MEDS: hydrOXYzine PAMOATE 25 MG CAP PO ×2 (14:53→18:39)
[2022-01-09 15:30] VITALS: BP 122/81; PULSE 99; RESP 20; TEMP 36.6; O2SAT 97
[2022-01-09] MEDS: Enoxaparin 40 MG/0.4 ML SYR SC (20:35)
[2022-01-09] MEDS: Gabapentin 300 MG CAP 600 MG PO (21:43)
[2022-01-09 23:25] VITALS: BP 124/75; PULSE 86; RESP 19; TEMP 36.4; O2SAT 96
[2022-01-10] MEDS: Tiotropium Bromide-Respimat 10 PUFF INH 2 PUFF IH (07:23)
[2022-01-10] MEDS: LORazepam 1 MG TAB PO ×4 (07:45→21:38)
[2022-01-10] MEDS: Famotidine 20 MG TAB PO ×2 (07:46→19:46)
[2022-01-10] MEDS: Buprenorphine/Naloxone 2 mg/0.5 mg FILM 1 EACH SL (07:46)
[2022-01-10] MEDS: Zinc Sulfate 220 MG TAB PO (07:46)
[2022-01-10] MEDS: Buprenorphine/Naloxone 8 mg/2 mg FILM 2 EACH SL (07:46)
[2022-01-10] MEDS: DULoxetine 30 MG CAP PO ×2 (07:47→19:46)
[2022-01-10] MEDS: methIMAzole 5 MG TAB PO (07:48)
[2022-01-10] MEDS: Ascorbic Acid 500 MG TAB PO ×2 (07:48→19:46)
[2022-01-10] MEDS: Cyanocobalamin 500 MCG TAB 1000 MCG PO (07:48)
[2022-01-10] MEDS: traMADol 50 MG TAB PO ×2 (07:49→21:38)
[2022-01-10 09:15] VITALS: BP 116/74; PULSE 97; RESP 17; TEMP 36.6; O2SAT 98
--- NOTE | 2022-01-10 10:04 | PDOC.CMACT ---
- If Service Date Differs Date of service: 01/10/22 Time of Service: 10:04 Care Management Activity Note Nicol was sitting up in bed, changing her dressings when CM met with her. Nicol is in good spirits and she seems to enjoys her independence in providing her own wound care and dressing changes. Nicol continues to work on puzzles and is surrounded by completed puzzles, plants, ruth, books, and has her cellphone, patient laptop and music tablet. She is keeping herself busy and continues to ambulate in the alonso frequently and independently. Nicol is being followed by surgery. She is anticipating discharging home early next week, after Easter. Nicol shared with CM that she hasn't told her family and wants it to be a surprise. CM continues to follow.
[2022-01-10] MEDS: hydrOXYzine PAMOATE 25 MG CAP PO ×3 (10:14→19:51)
[2022-01-10] MEDS: Gabapentin 300 MG CAP PO (14:16)
[2022-01-10 15:30] VITALS: BP 124/80; PULSE 107; RESP 20; TEMP 37; O2SAT 96
[2022-01-10] MEDS: Enoxaparin 40 MG/0.4 ML SYR SC (19:52)
[2022-01-10] MEDS: Gabapentin 300 MG CAP 600 MG PO (21:38)
[2022-01-10 23:20] VITALS: BP 138/87; PULSE 94; RESP 20; TEMP 37.1; O2SAT 97
[2022-01-11] MEDS: Tiotropium Bromide-Respimat 10 PUFF INH 2 PUFF IH (07:18)
[2022-01-11] MEDS: Buprenorphine/Naloxone 2 mg/0.5 mg FILM 1 EACH SL (08:47)
[2022-01-11] MEDS: Buprenorphine/Naloxone 8 mg/2 mg FILM 2 EACH SL (08:47)
[2022-01-11] MEDS: Famotidine 20 MG TAB PO ×2 (08:48→21:36)
[2022-01-11] MEDS: Zinc Sulfate 220 MG TAB PO (08:48)
[2022-01-11] MEDS: Ascorbic Acid 500 MG TAB PO ×2 (08:48→21:36)
[2022-01-11] MEDS: Cyanocobalamin 500 MCG TAB 1000 MCG PO (08:48)
[2022-01-11] MEDS: DULoxetine 30 MG CAP PO ×2 (08:48→21:38)
[2022-01-11] MEDS: methIMAzole 5 MG TAB PO (08:49)
[2022-01-11] MEDS: LORazepam 1 MG TAB PO ×4 (08:49→21:37)
[2022-01-11] MEDS: traMADol 50 MG TAB PO ×2 (08:50→21:37)
[2022-01-11] MEDS: hydrOXYzine PAMOATE 25 MG CAP PO ×2 (11:05→16:46)
--- NOTE | 2022-01-11 11:06 | INPN_ITS ---
Date of service: 01/11/22 Time of Service: 11:40 PT Notes Visit Reasons: Dry Gangrene/Stage III Pressure Ulcer Physical Therapy Swing Bed Level I Progress Note Date: 01/11/2022 Dates of Service: 01/05/2022 through 01/11/2022 Precautions: Fall. Standard. WBAT on R LE with AD. Subjective: States that her wound has been healing well and that she is looking forward to going home early next week. Agreeable to manual active stretching by PT. HAs been regularly doing self- stretches to her L calf muscles. Okay to continuing with outpatient PT for continued rehab for ambulation progression. Objective: General Observation: Supine in bed Mental Status: Alert and oriented as to person, place, time, and purpose. Able to pay attention, focus, and respond appropriately. Pain: 4-5/10 at end range of dorsiflexion on R ROM: Right Lower Extremity: Hip flexion WFL. Hip abduction WFL. Knee flexion WFL. Ankle dorsiflexion 10 degrees. Ankle plantarflexion 20 degrees. Left Lower Extremity:? Hip flexion WFL. Hip abduction WFL. Knee flexion WFL. Ankle dorsiflexion WFL. Ankle plantarflexion WFL. Strength: Right Lower Extremity: Hip flexors 4-/5. Hip abductors 4-/5. Knee flexors 4-/5. Knee extensors 4-/5. Ankle dorsiflexors 3-/5. Ankle plantarflexors 3/5. Left Lower Extremity: Hip flexors 4-/5. Hip abductors 4-/5. Knee flexors 4-/5. Knee extensors 4-/5. Ankle dorsiflexors 4-/5. Ankle plantarflexors 4/5. Bed Mobility/Transfers: Supine to sit independent Sit to stand independent Stand to sit independent Bed to reclining chair independent Gait: Modified independent with level surface ambulation.? Decreased dorsiflexion at heel strike on R, painful foot flat on R but is able to sustain position during midstance, minimal push off on R due to pain. THERA EX: GPS to R platarflexors x 10 seconds for 5 reps.? Active, self stretch to R gastrocsoleus at both the knee and ankle insertions while in supine and and sitting.? Reinforced with patient to continued forward lunges held x 20 for 5 reps at BID to allow active stretch to R plantarflexors. Balance: Static Sitting: Normal Dynamic Sitting: Normal Static Standing: Good Dynamic Standing: Fair Special Tests: Mobility Limitations Standardized Measure [facility] 6 clicks Basic Mobility Inpatient Short Form: Raw Score: 24 CMS Score: 0% deficit? ? ? Informed Consent/Education:? Patient was instructed in purpose of PT consult and plan of care. Agreeable to continue with established PT POC to achieve personal goals. Assessment: Nicol is a 36-year-old female with bilateral ankle wounds S/P multiple I and D to stage II pressure ulcer on the R medial and R lateral distal leg/ankle areas and S/P xenograft placement on 11/29/2021 and xenograft replacement on 12/11/2021,? thyroid nodule, and hyperthyroidism. She is evaluated under swing level I care for continued physical therapy.? Nicol demonstrates functional mobility decline requiring the use fof FWW for all transfer and ambulation due to limited weight bearing on the R LE.? May continue with outpatient PT once cleared for discharge for R ankle rehabilitation.? Ankle dorsiflexion on R continues to be limited due to pain and to gastrocsoleus contracture formation.? Pain in R ankle also limits gentle passive stretching and effective push off on the R during R LE acceleration during gait. Use of FWW continue to be needed due to pain level and need for wound vacuum container.? Patient presents with clinical signs and symptoms consistent with current/admitting diagnoses that have resulted to mobility limitations, gait instability, generalized weakness, and overall ADL decline as demonstrated by the following impairment level findings: 1.? Decreased strength to R ankle major muscle groups 2.? Limitation of joint range of motion in R ankle 3.? Pain in R ankle with movement/weightbearing 4. Tight plantarflexors Impairments are contributing to the following functional limitations: 1.? Impaired gait pattern on the R ankle-- painful foot flat and push off 2.? Increased completion time for mobility ADL performance 3.? Increased risk for falls 4.? Difficulty with managing steps alone safely Patient is assessed as a 24965 moderate complexity based on the following: History: 36-year-old femalewith past medical history as indicated above Examination: Demonstrable impairment in strength, balance, and mobility level with underlying impairments and functional limitations as exhibited above as well as deficit score of 36% utilizing the [facility] Mobility Inpatient Short Form Presentation:? Evolving Decision Makin moderate complexity Goals: Goals X 3 weeks 1. Full AROM for ankle DF and PF to achieve safe gait pattern and reduce fall risk NOT MET, CONTINUE 2. Achieve 5/5 strength for ankle dorsiflexors, plantarflexors, invertors, evertors to facilitate normal gait pattern and reduce fall risk NOT MET, CONTINUE Plan of Care/Treatment Plan: 1x/week for 3 weeks for R ankle joint range of motion, strengthening and gait training.? Plan of care has been reviewed with the [employer] providing the service under Physical Therapy direction. DISCHARGE RECOMMENDATIONS: [] ? Home with no services [] [] ? Home with services [specify] [X] ? Home with outpatient PT. Patient will benefit from outpatient PT services in order to progress mobility level using least restrictive assistive ambulatory device while progressing mobility level to PLOF that will increase ability of patient to remain at home. [] ? SNF for continued rehabilitation [] [] ? Skilled Nursing Care [] [] ? SNF versus LTC based on ability to participate and progress [] TREATMENT CODE/TIME: 76917 x 25 minutes beginning at 11:06 AM. Thank you for the opportunity to participate in the care of this patient. Funmi Castañeda PT, DPT, CLT [facility] [place], [place]
[2022-01-11 11:25] VITALS: BP 116/85; PULSE 119; RESP 20; TEMP 37.2; O2SAT 95
[2022-01-11] MEDS: Gabapentin 300 MG CAP PO (14:32)
--- NOTE | 2022-01-11 19:00 | INDS_ITS ---
Date of service: 01/11/22 PT Notes Visit Reasons: Dry Gangrene/Stage III Pressure Ulcer Physical Therapy Swing Bed Level I Discahrge Summary Date: 01/11/2022 Dates of Service: 12/14/2021 through 01/11/2022 This is a clinical summary of care provided for the duration of dates listed abo ve. No charge was made in the completion of this documentation. Precautions: Fall. Standard. WBAT on R LE with AD. Subjective: States that her wound has been healing well and that she is looking forward to going home early next week.? Agreeable to manual active stretching by PT.? HAs been regularly doing self- stretches to her L calf muscles.? Okay to continuing with outpatient PT for continued rehab for ambulation progression. Objective: General Observation: Supine in bed Mental Status: Alert and oriented as to person, place, time, and purpose. Able to pay attention, focus, and respond appropriately. Pain: 4-5/10 at end range of dorsiflexion on R ROM: Right Lower Extremity: Hip flexion WFL. Hip abduction WFL. Knee flexion WFL. Ankle dorsiflexion 10 degrees. Ankle plantarflexion 20 degrees. Left Lower Extremity:? Hip flexion WFL. Hip abduction WFL. Knee flexion WFL. Ankle dorsiflexion WFL. Ankle plantarflexion WFL. Strength: Right Lower Extremity: Hip flexors 4-/5. Hip abductors 4-/5. Knee flexors 4-/5. Knee extensors 4-/5. Ankle dorsiflexors 3-/5. Ankle plantarflexors 3/5. Left Lower Extremity: Hip flexors 4-/5. Hip abductors 4-/5. Knee flexors 4-/5. Knee extensors 4-/5. Ankle dorsiflexors 4-/5. Ankle plantarflexors 4/5. Bed Mobility/Transfers: Supine to sit independent Sit to stand independent Stand to sit independent Bed to reclining chair independent Gait: Modified independent with level surface ambulation for up to 1000 feet.? Decreased dorsiflexion at heel strike on R,? painful foot flat on R but is able to sustain position during midstance, minimal push off on R due to pain. THERA EX: GPS to R platarflexors x 10 seconds for 5 reps.? Active, self stretch to R gastrocsoleus at both the knee and ankle insertions while in supine and and sitting.? Reinforced with patient to continued forward lunges held x 20 for 5 reps at BID to allow active stretch to R plantarflexors. Balance: Static Sitting: Normal Dynamic Sitting: Normal Static Standing: Good Dynamic Standing: Fair Assessment: Nicol is a 36-year-old female with bilateral ankle wounds S/P multiple I and D to stage II pressure ulcer on the R medial and R lateral distal leg/ankle areas and S/P xenograft placement on 11/29/2021 and xenograft replacement on 12/11/2021,? thyroid nodule, and hyperthyroidism. She is evaluated under swing level I care for continued physical therapy.? Nicol demonstrates functional mobility decline requiring the use fof FWW for all transfer and ambulation due to limited weight bearing on the R LE.?? May continue with outpatient PT once cleared for discharge for R ankle rehabilitation.? Ankle dorsiflexion on R continues to be limited due to pain and to gastrocsoleus contracture formation.? Pain in R ankle also limits gentle passive stretching and effective push off on the R during R LE acceleration during gait. Use of FWW continue to be needed due to pain level and need for wound vacuum container.? Patient presents with clinical signs and symptoms consistent with current/admitting diagnoses that have resulted to mobility limitations, gait instability, generalized weakness, and overall ADL decline as demonstrated by the following impairment level findings: 1.? Decreased strength to R ankle major muscle groups 2.? Limitation of joint range of motion in R ankle 3.? Pain in R ankle with movement/weightbearing 4. Tight plantarflexors Impairments are contributing to the following functional limitations: 1.? Impaired gait pattern on the R ankle-- painful foot flat and push off 2.? Increased completion time for mobility ADL performance 3.? Increased risk for falls 4.? Difficulty with managing steps alone safely Goals: Goals X 3 weeks 1. Full AROM for ankle DF and PF to achieve safe gait pattern and reduce fall risk NOT MET, CONTINUE WITH OP PT 2. Achieve 5/5 strength for ankle dorsiflexors, plantarflexors, invertors, evertors to facilitate normal gait pattern and reduce fall risk NOT MET, CONTINUE WITH OP PT DISCHARGE RECOMMENDATIONS: [] ? Home with no services [] [] ? Home with services [specify] [X] ? Home with outpatient PT. Patient will benefit from outpatient PT services in order to progress mobility level using least restrictive assistive ambulatory device while progressing mobility level to PLOF that will increase ability of patient to remain at home. [] ? SNF for continued rehabilitation [] [] ? Custodial Care [] [] ? SNF versus LTC based on ability to participate and progress [] TREATMENT CODE/TIME: NC Thank you for the opportunity to participate in the care of this patient. Funmi Castañeda PT, DPT, CLT [facility] [place], [place]
[2022-01-11] MEDS: Gabapentin 300 MG CAP 600 MG PO (21:36)
[2022-01-11] MEDS: Enoxaparin 40 MG/0.4 ML SYR SC (21:38)
[2022-01-11 22:52] VITALS: BP 112/69; PULSE 101; RESP 18; TEMP 36.7; O2SAT 100
[2022-01-12] MEDS: Tiotropium Bromide-Respimat 10 PUFF INH 2 PUFF IH (07:57)
[2022-01-12] MEDS: Buprenorphine/Naloxone 8 mg/2 mg FILM 2 EACH SL (08:42)
[2022-01-12] MEDS: methIMAzole 5 MG TAB PO (08:42)
[2022-01-12] MEDS: Zinc Sulfate 220 MG TAB PO (08:42)
[2022-01-12] MEDS: Buprenorphine/Naloxone 2 mg/0.5 mg FILM 1 EACH SL (08:42)
[2022-01-12] MEDS: Cyanocobalamin 500 MCG TAB 1000 MCG PO (08:43)
[2022-01-12] MEDS: Famotidine 20 MG TAB PO ×2 (08:43→19:08)
[2022-01-12] MEDS: Ascorbic Acid 500 MG TAB PO ×2 (08:43→19:08)
[2022-01-12] MEDS: DULoxetine 30 MG CAP PO ×2 (08:43→19:08)
[2022-01-12] MEDS: LORazepam 1 MG TAB PO ×4 (08:43→17:09)
[2022-01-12] MEDS: traMADol 50 MG TAB PO ×2 (08:44→21:50)
--- NOTE | 2022-01-12 13:43 | W.PM.PROGNOT ---
Date of Service Date of service: 01/12/22 Time of Service: 13:43 Assessment and Plan Assessment and plan (1) Positive NINI (antinuclear antibody): Status: Acute (2) Thyroid nodule: Status: Acute Assessment and plan: -Thyroid scan pending to further evaluate TIRADS 4 nodule (3) Status post xenograft placement: Status: Acute Assessment and plan: -Dressings to be changed today at 3pm -Continue to encourage elevation when in bed to prevent edema -Vac removed as no further therapeutic benefit -No further grafting planned at this time -High protein diet -Supportive care, PT/OT as tolerated -DC plan this week, possibly Friday (patient is planning on surprising her family) ? (4) COPD (chronic obstructive pulmonary disease): Status: Chronic (5) Bullous emphysema: Status: Acute (6) Depression: Status: Chronic (7) Hyperthyroidism: Status: Chronic (8) Hypoalbuminemia due to protein-calorie malnutrition: Status: Acute (9) Asthma: Status: Chronic Subjective Subjective Patient reports: no new complaints, feels better, tolerating a regular diet and afebrile Exam Const General: cooperative, comfortable and no acute distress Nutritional Appearance: average body habitus Resp Effort & Inspection: normal respiratory effort, no audible wheezes, not labored and no respiratory distress Cardio Rate: tachycardic Rhythm: regular rhythm Skin Wounds: wounds noted (right ankle wound vac removed, dry dressing in place with ANDREA wrap) Neuro General: patient alert, patient awake and patient oriented x3 Objective Last Vital Signs Temp 98.1 F 01/11/22 22:52 Pulse 101 H 01/11/22 22:52 Resp 18 01/11/22 22:52 BP 112/69 01/11/22 22:52 Pulse Ox 100 01/11/22 22:52
[2022-01-12] MEDS: Gabapentin 300 MG CAP PO (13:48)
[2022-01-12 15:50] VITALS: BP 111/80; PULSE 114; RESP 23; TEMP 36.4; O2SAT 98
[2022-01-12] MEDS: hydrOXYzine PAMOATE 25 MG CAP PO ×3 (16:00→21:54)
[2022-01-12] MEDS: Enoxaparin 40 MG/0.4 ML SYR SC (19:07)
[2022-01-12] MEDS: Gabapentin 300 MG CAP 600 MG PO (21:50)
[2022-01-13 00:36] VITALS: BP 122/86; PULSE 98; RESP 16; TEMP 36.9; O2SAT 97
[2022-01-13 07:30] VITALS: BP 113/70; PULSE 88; RESP 12; TEMP 36.7; O2SAT 100
[2022-01-13] MEDS: Tiotropium Bromide-Respimat 10 PUFF INH 2 PUFF IH (07:57)
[2022-01-13] MEDS: Buprenorphine/Naloxone 8 mg/2 mg FILM 2 EACH SL (08:09)
[2022-01-13] MEDS: Buprenorphine/Naloxone 2 mg/0.5 mg FILM 1 EACH SL (08:09)
[2022-01-13] MEDS: DULoxetine 30 MG CAP PO ×2 (08:09→20:51)
[2022-01-13] MEDS: Famotidine 20 MG TAB PO ×2 (08:09→20:51)
[2022-01-13] MEDS: Zinc Sulfate 220 MG TAB PO (08:09)
[2022-01-13] MEDS: Ascorbic Acid 500 MG TAB PO ×2 (08:10→20:51)
[2022-01-13] MEDS: LORazepam 1 MG TAB PO ×4 (08:10→20:52)
[2022-01-13] MEDS: methIMAzole 5 MG TAB PO (08:10)
[2022-01-13] MEDS: traMADol 50 MG TAB PO ×2 (08:10→20:51)
[2022-01-13] MEDS: Cyanocobalamin 500 MCG TAB 1000 MCG PO (08:10)
[2022-01-13] MEDS: hydrOXYzine PAMOATE 25 MG CAP PO ×3 (10:43→16:04)
[2022-01-13] MEDS: Gabapentin 300 MG CAP PO (13:55)
[2022-01-13] MEDS: Enoxaparin 40 MG/0.4 ML SYR SC (20:51)
[2022-01-13] MEDS: Gabapentin 300 MG CAP 600 MG PO (20:51)
[2022-01-14 03:35] VITALS: BP 125/80; PULSE 113; RESP 18; TEMP 37.1; O2SAT 97
[2022-01-14] MEDS: Tiotropium Bromide-Respimat 10 PUFF INH 2 PUFF IH (07:18)
--- NOTE | 2022-01-14 08:00 | DI.US_ITS ---
Exam(s) US THYROID EXAM: US THYROID CLINICAL HISTORY: nodules. TECHNIQUE: Ultrasound thyroid performed using standard protocol. COMPARISON: US US THYROID from 11/15/2021 US US OR ANESTHESIA from 11/22/2021 FINDINGS: ISTHMUS: 4 mm RIGHT LOBE: Size: 6.5 x 3.4 x 3.1 cm length measurements not accurate due to large size. Echogenicity: Normal. Vascularity: Normal. Nodules: 5.2 x 3.4 x 3.6 centimeter mixed solid and cystic nodule with smooth margins and macrocalcif ications. Other small hypoechoic nodules measuring less than a centimeter in size. LEFT LOBE: Size: 3.8 x 1.6 x 1.4 cm. Cm Echogenicity: Normal. Vascularity: Normal. Nodules: No suspicious nodules. Right few small circumscribed hypoechoic nodules less than a centime ter in size.. OTHER FINDINGS: None. IMPRESSION: Interval increase in size mixed cystic and solid lesion of the right thyroid, TR 3. Biopsy recommend ed. DATA REPOSITORY:
[2022-01-14] MEDS: methIMAzole 5 MG TAB PO (08:38)
[2022-01-14] MEDS: LORazepam 1 MG TAB PO ×4 (08:38→19:38)
[2022-01-14] MEDS: Famotidine 20 MG TAB PO ×2 (08:38→19:38)
[2022-01-14] MEDS: Ascorbic Acid 500 MG TAB PO ×2 (08:39→19:38)
[2022-01-14] MEDS: traMADol 50 MG TAB PO ×2 (08:39→21:17)
[2022-01-14] MEDS: Buprenorphine/Naloxone 2 mg/0.5 mg FILM 1 EACH SL (08:39)
[2022-01-14] MEDS: Buprenorphine/Naloxone 8 mg/2 mg FILM 2 EACH SL (08:39)
[2022-01-14] MEDS: Cyanocobalamin 500 MCG TAB 1000 MCG PO (08:39)
[2022-01-14] MEDS: DULoxetine 30 MG CAP PO ×2 (08:39→19:39)
[2022-01-14] MEDS: Zinc Sulfate 220 MG TAB PO (08:39)
[2022-01-14 09:00] VITALS: BP 118/82; PULSE 109; RESP 20; TEMP 36.6; O2SAT 96
[2022-01-14] MEDS: hydrOXYzine PAMOATE 25 MG CAP PO ×4 (11:24→21:18)
[2022-01-14] MEDS: Gabapentin 300 MG CAP PO (13:47)
[2022-01-14 15:20] VITALS: BP 125/80; PULSE 113; RESP 18; TEMP 37.1; O2SAT 97
[2022-01-14] MEDS: Enoxaparin 40 MG/0.4 ML SYR SC (19:39)
--- NOTE | 2022-01-14 20:04 | PDOC.CMPRO ---
- If Service Date Differs Date of service: 01/14/22 Time of Service: 20:04 Care Management Progress Note Nicol will discharge home tomorrow if discharge coordination is complete. Dressing supply orders have been sent to [facility]. Brenda thorpe [place] reported today that once orders are finalized, the shipment will take three days to arrive at patient's home. [facility] will provide supplies for Nicol on discharge to ensure she has the supplies necessary to complete dressing changes until [place] supply arrives. Nicol has declined home health referral. She will transport via [facility] to [facility] twice weekly for dressing changes through surgical services, per MD. Nicol requires daily dressing changes and will complete dressing changes herself at home on the days in between her twice weekly dressing changes at [facility]. CM discussed replacement of Nicol's lost sandal with [employer] [facility]. Nicol will provide requested replacement link which will be provided to [employer] for ordering through material management. Shoes were purchased for Nicol to return home with upon discharge. Nicol was provided a rollator walker by PT through [facility]. She will transport via [facility] private driver messenger coordinated by CM upon discharge.
[2022-01-14] MEDS: Gabapentin 300 MG CAP 600 MG PO (21:17)
[2022-01-14 22:27] VITALS: BP 119/76; PULSE 105; RESP 19; TEMP 36.7; O2SAT 96
[2022-01-15 06:38] VITALS: BP 111/70; PULSE 92; RESP 19; TEMP 37.1; O2SAT 97
[2022-01-15] MEDS: Tiotropium Bromide-Respimat 10 PUFF INH 2 PUFF IH (07:23)
[2022-01-15] MEDS: Buprenorphine/Naloxone 2 mg/0.5 mg FILM 1 EACH SL (08:46)
[2022-01-15] MEDS: Buprenorphine/Naloxone 8 mg/2 mg FILM 2 EACH SL (08:46)
[2022-01-15] MEDS: Ascorbic Acid 500 MG TAB PO (08:46)
[2022-01-15] MEDS: Famotidine 20 MG TAB PO (08:46)
[2022-01-15] MEDS: Cyanocobalamin 500 MCG TAB 1000 MCG PO (08:46)
[2022-01-15] MEDS: DULoxetine 30 MG CAP PO (08:46)
[2022-01-15] MEDS: traMADol 50 MG TAB PO (08:47)
[2022-01-15] MEDS: methIMAzole 5 MG TAB PO (08:47)
[2022-01-15] MEDS: Zinc Sulfate 220 MG TAB PO (08:48)
[2022-01-15] MEDS: LORazepam 1 MG TAB PO ×4 (08:48→16:57)
--- NOTE | 2022-01-15 12:40 | CMPROGNOTE_ITS ---
- If Service Date Differs Date of service: 01/15/22 Time of Service: 12:40 Care Management Progress Note Nicol will be discharging today 01/15/22 between 4-6pm. She will notify when she has transportation. She declines RCT, due to the amount of personal belongings in her room. CM wrote Last Dose Letter for [facility], Letter will be provided to patient at discharge. KATARZYNA requested 4 days of dressing supplies to cover wound care until [place] products arrive to patients home in 3-4 days. RN aware. Amarjit will be emailing KATARZYNA an amended order today for [facility] to sign, to reflect the dimension's of the products they have. KATARZYNA is waiting for order. Nicol [facility] (office) on 01/17/22 at 1pm. Nicol is aware and will call [facility] to arrange transportation. Nicol will also call [facility] to arrange her [facility] visits. KATARZYNA provided patient with a pair of Sandals at discharge, Nicol also requests a pair of crocs size 7/8 be ordered to replace the sandals which were lost in the ER, during admission. KATARZYNA is aware of her request and will facilitate ordering.
[2022-01-15] MEDS: Gabapentin 300 MG CAP PO (14:00)
--- NOTE | 2022-01-15 14:07 | W.PM.PROGNOT ---
Date of Service Date of service: 01/15/22 Time of Service: 14:00 Assessment and Plan Assessment and plan (1) Former smoker: Status: Acute (2) Positive NINI (antinuclear antibody): Status: Acute (3) Thyroid nodule: Status: Acute (4) Status post xenograft placement: Status: Acute Assessment and plan: See discharge summary. Patient is given dressings and instructions in doing her dressing changes. She has actually been doing them in the hospital. (5) COPD (chronic obstructive pulmonary disease): Status: Chronic (6) Bullous emphysema: Status: Acute (7) Depression: Status: Chronic Assessment and plan: Cymbalta and recommend outpatient cognitive behavioral therapy (8) Hyperthyroidism: Status: Chronic Assessment and plan: Continue on Tapazole (9) Hypoalbuminemia due to protein-calorie malnutrition: Status: Acute Assessment and plan: Continue high-protein diet and nutritional support (10) Asthma: Status: Chronic Assessment and plan: She needs to stay non-smoker and continue her Spiriva. She has severe COPD. She will follow-up with pulmonary upon discharge (11) Right thyroid nodule: Status: Acute Assessment and plan: I did review the ultrasound and it looks like the nodule is growing. She will need to go for biopsy with ENT and we will arrange this as outpatient basis See discharge instructions Subjective Subjective Interval history since last seen: Pt is doing well. no headaches. No CP or SOB. no productive cough. no dysuria. no leg pain or swelling. She showered today and did her make-up. She is up walking around. Considering her degree of injury, she is excellent mobility in the ankle. Exam Resp Effort & Inspection: normal respiratory effort and able to speak in complete sentences Auscultation: clear to auscultation bilaterally Cardio Rate: regular rate Rhythm: regular rhythm Skin Other: wounds: medial 10x9 w/ no depth later 6x7 w/ no depth there is some maceration on the dorsum of the foot b/t the two skin bridges. It is irreg in size but about 4x2 cm the area on her keys that had broken down from the tubing of the wound VAC is epithelializing. There are only a few punctate areas that are open.. She also has a 1 x 1 cm area that was also area of breakdown from to being on the medial side that is also developing islands of granulation tissue. There is no redness or swelling. She noted increased drainage today. It is serous. Patient notes that she has been scrubbing the wounds forcefully to remove the wound gel. Objective Last Vital Signs Temp 37.1 C 01/15/22 06:38 Pulse 92 H 01/15/22 06:38 Resp 19 01/15/22 06:38 BP 111/70 01/15/22 06:38 Pulse Ox 97 01/15/22 06:38
--- NOTE | 2022-01-15 14:24 | W.PM.DS.N ---
Date of service: 01/15/22 Time of Service: 14:24 DS: Diagnosis Discharge Diagnosis (1) Positive NINI (antinuclear antibody): Status: Acute (2) Thyroid nodule: Status: Acute (3) Status post xenograft placement: Status: Acute (4) COPD (chronic obstructive pulmonary disease): Status: Chronic (5) Bullous emphysema: Status: Acute (6) Depression: Status: Chronic (7) Hyperthyroidism: Status: Chronic (8) Hypoalbuminemia due to protein-calorie malnutrition: Status: Acute (9) Asthma: Status: Chronic (10) Narcotic abuse in remission: (11) Former smoker: Status: Acute Discharge Plan Disposition Patient Disposition: HOME Condition: Improving Discharge Details Reason For Visit: Dry Gangrene/Stage III Pressure Ulcer Admit Date/Time: 12/14/21 16:16 Admit Provider: Solo Goff Attending Provider: Susana Richey [facility] Course: see addendum Home Meds and New Rx's Prescriptions: New duloxetine 30 mg Capsule,Delayed Release(Dr/Ec) 30 mg PO BID Qty: 60 12RF gabapentin 300 mg Capsule 300 mg PO DAILY@1400 Qty: 30 12RF gabapentin 300 mg Capsule 600 mg PO HS Qty: 60 12RF methimazole 5 mg Tablet 5 mg PO DAILY Qty: 30 12RF Hydrocolloid Dressing [Duoderm Hydroactive Gel] 0 g topical DAILY 90 Days Qty: 1 12RF Spiriva Respimat 2.5 mcg/actuation Mist 2 puff inhalation DAILY Qty: 4 12RF Nicotrol 10 mg Cartridge 1 inh inhalation Q2H PRN PRNQty: 168 4RF hydroxyzine pamoate [Vistaril] 25 mg Capsule 25 mg PO TID PRN PRNQty: 90 6RF tramadol 50 mg Tablet 50 mg PO QAM AND QHS PRN (Reason: pain (scale score 7-10)) Qty: 14 0RF albuterol sulfate 90 mcg/actuation HFA aerosol inhaler 2 puff inhalation Q6H PRN (Reason: shortness of breath or wheezing) Qty: 6.7 6RF Continued Mirena 1 EACH intrauterine device 1 unit IU DAILY 0RF buprenorphine-naloxone [Suboxone] 2-0.5 mg Film 1 film sublingual DAILY 0RF Rx Instructions: place 1 strip/tab under (each) side of tongue buprenorphine-naloxone [Suboxone] 8-2 mg Film 2 film SUBLINGUAL DAILY 0RF Rx Instructions: place 1 strip/tab under (each) side of tongue Discontinued ferrous gluconate 324 mg (38 mg iron) tablet 324 mg PO DAILY 0RF Label Comments: TAKE 1 TABLET BY MOUTH ONCE A DAY Discharge Instructions Instructions: High Protein Diet (GEN), High Protein / High Calorie Diet (GEN) Additional Instructions: Tylenol 650mg po every 4hrs as needed for pain. if you have pain > 7 you can take an Ultram. You are only allotted two ultram a day. You will only be given a weeks worth of ultram at a time. If the Ultram are lost/stolen/eaten by the dog/fall into the toilet- they will NOT be replaced. You are responsible for your own narcotic medication. Keep them in a safe/secure place. -No driving x1 week or of you are taking narcotic pain medications. -no straining to move bowels. Narcotic pain meds (Ultram)can be very constipating: if you do not move your bowels daily take a dose of OTC milk of magnesia or Miralax. -It is ok to shower. No bathe, soaking, swimming or hot tubs. Cover wound to shower. Shower, and than do your dressing changes. It is ok if your dressings get a little damp. Dressing changes: -shower daily -remove old dressings -remove any only wound gel by irrigating w/ sterile saline. GENTLY pat dry -apply fresh wound gel with Q-tip -cover w/adaptic (non stick gauze) -cover with ABD dressing pad and Kerlix and ANDREA wrap. You can wash andrea wraps. let them line dry/don't' put them in dryer. -Protein supplements daily. It is important that she can eat nutritious food. No Beck's or fast foods! Eat 3-6 small meals throughout the day. It is important to drink lots of water after surgery, 6-10 glasses a day. consider getting a nutritional supplement such as boost or ensure. You can also buy whey or egg protein powder and make you own protein drinks/smoothies at home. -Use your incentive spirometry (breathing awning hanger?) 10x/hour while awake. -We do want you up walking, at least 5-6 times per day. This is very important to prevent pneumonia and blood clots. You can climb stairs, take them slowly. -No smoking! -You will f/u in surgery clinic/ [facility]- [place] building across [address] from [facility]) every Friday w/ Dr. Richey and w/ Patito ROMANO. address: [address] [place] [address] [address] [place], [place] [phone] Dressing supplies will be delivered by [facility]. -F/u w/ [facility] clinic for Subxone therapy. -F/u pulmonary clinic for COPD/mphysema -F/u w/ Dr. Tolbert for thyroid biopsy Referrals: Magui Ruvalcaba PA [[facility]] - 01/17/22 1:00 pm (I made your first appointment for you. [facility] will give you appointments for your other dressing changes.) Mary Chao MD [ [facility] STAFF PHYSICIAN] - Jak Tolbert MD [ [facility] STAFF PHYSICIAN] - ([facility] Office: [phone] There office is in the same building as [facility] and the [facility] [place]. The [facility] across the street from the [facility] in [facility] ) Susana Richey DO [OSTEOPATHIC DOCTOR] - 01/21/22 (10:00 am ) Activity:: see above Equipment/Supplies:: Walker Diet:: high protein Discharge Orders Discharge Orders: Discharge Order (Routine); Ordered 01/15/22 Ordered By: Susana Richey DS: Summary Time Spent with Patient providing and/or coordinating discharge services: Greater than 30 minutes Status at Discharge Functional status at discharge: uses cane/walker Overall status at discharge: patient is progressing back to baseline Mental Status: mental status grossly normal Speech and Movement: speech and movement normal Mood: congruent mood Affect: normal affect Exam Psych Mental Status: mental status grossly normal Speech and Movement: speech and movement normal Mood: congruent mood Affect: normal affect DS: Data Vitals/I&O Vitals and I&O: Vital Signs Temperature 37.1 C 01/15/22 06:38 Temperature Source Tympanic 01/15/22 06:38 Pulse 92 H 01/15/22 06:38 Pulse Rhythm Regular 01/15/22 09:59 Respiratory Rate 19 01/15/22 06:38 Respiratory Effort 01/15/22 09:59 Respiratory Depth Normal 01/15/22 09:59 Respiratory Pattern Normal 01/15/22 09:59 Blood Pressure 111/70 01/15/22 06:38 Pulse Oximetry 97 01/15/22 06:38 Oxygen Delivery Method Room Air 01/15/22 06:38 Oxygen Flow Rate 0 01/15/22 06:38 Pain Level 0 01/15/22 06:38 Comment 01/03/22 23:25 Intake & Output 01/14/22 01/15/22 01/15/22 23:59 11:59 23:59 Intake Total 1499 740 / 1340 600 / 1340 Balance 1499 740 / 1340 600 / 1340 Weight 45.6 kg Intake: Oral 1499 740 / 1340 600 / 1340 Other: Urine Color Yellow Yellow Urine Appearance Cloudy Clear Urine Odor Normal Normal Comment pT voids independently Voiding Methods Toilet Toilet PFSH All Active Problems Former smoker (Acute) Positive NINI (antinuclear antibody) (Acute) Thyroid nodule (Acute) Status post xenograft placement (Acute) COPD (chronic obstructive pulmonary disease) (Chronic) Bullous emphysema (Acute) Depression (Chronic) Hyperthyroidism (Chronic) Hypoalbuminemia due to protein-calorie malnutrition (Acute) Smoker unmotivated to quit (Chronic) Asthma (Chronic) Medical History Hypokalemia due to loss of potassium Narcotic abuse in remission Surgical History History of adenoidectomy S/p bilateral myringotomy with tube placement Social History Smoking/Tobacco Use Status: Current every day Tobacco Type: cigarettes Smoking risk assessment performed?: Yes Alcohol Intake: never Drug use: Current Sobriety Substance use type: former substance user Do you feel safe at home: Yes Do you feel safe in your relationship?: Yes
[2022-01-15 14:29] VITALS: BP 116/82; PULSE 101; RESP 18; TEMP 36; O2SAT 97
[2022-01-15] MEDS: hydrOXYzine PAMOATE 25 MG CAP PO (15:54)
--- NOTE | 2022-01-15 16:00 | CMDISCH_ITS ---
- If Service Date Differs Date of service: 01/15/22 Time of Service: 16:01 LACE Index Scoring Tool - Questions: Length of Stay (in days): 14 or more Acuity (Admit via E.D.?): Yes E.D. Visits: 2 - Answers: Total Score: 12 Risk of Readmission: High Risk Care Management Discharge Reason for Hospitalization: Dry, Gangrene RLE Discharge Plan: Discharge home via private vehicle with family. Nicol declines [facility] services. [facility] will deliver her wound care supplies directly to [facility], delivery will take 3-4 days. KATARZYNA requested 4 days of dressing supplies to cover wound care until [facility] products arrive. Nicol will follow up with [facility] twice weekly for dressing changes. First appointment is 01/17/22 at 1pm. Nicol will arrange RCT for that visit. KATARZYNA wrote a Last Dose Letter for [facility]. Nicol will also call [facility] to arrange her [facility] visits. CM will contact Nicol when her Crocs come in. Patient/Family Education Needs: Review discharge instructions, medications, limitations, self care and plan to follow up with community providers. ask me three. Services Needed at Discharge: DME Agency ([facility])
--- NOTE | 2022-02-08 10:31 | PDOC.CMPRO ---
- If Service Date Differs Date of service: 02/08/22 Time of Service: 10:31 Care Management Progress Note CM outreached to Nicol after hearing that she has not followed up for appointments, supplies, etc. CM left voicemail requesting call back and offering support with retrieving wound care supplies.
== END 2022-01-15 17:10 | disposition home or self-care (01) | DRG 949 ==
PROVIDERS: Surgery; Admitting Provider Internal Medicine; PCP Family Medicine; Visit Provider Surgery
DX: Z48.817 Encounter for surgical aftercare following surgery on the skin and subcutaneous tissue (principal); L89.513 Pressure ulcer of right ankle, stage 3; E46 Unspecified protein-calorie malnutrition; Z68.1 Body mass index [BMI] 19.9 or less, adult; J43.9 Emphysema, unspecified; E05.10 Thyrotoxicosis with toxic single thyroid nodule without thyrotoxic crisis or storm; F32.A Depression, unspecified; F17.210 Nicotine dependence, cigarettes, uncomplicated; R78.89 Finding of other specified substances, not normally found in blood; R91.8 Other nonspecific abnormal finding of lung field; F11.11 Opioid abuse, in remission
CPT/HCPCS: 36415; 80053; 80061; 87635; 94640; 97110; 97162; 97530; J1650; 76536; 83540; 83550; 84439; 84443; 86225; 86235; 94760; J1756; J2060; J2250; J9999

== ENCOUNTER 2021-12-25 15:54 | Day surgery (SDC) | payer MEDICAID, SELFPAY ==
--- NOTE | 2021-12-25 | DI.RAD_ITS ---
Exam(s) XR PORTABLE CHEST AP EXAM: XR PORTABLE CHEST AP CLINICAL HISTORY: post procedure TECHNIQUE: 2D digital imaging was performed of the chest. One image was obtained. An AP view was ob tained. COMPARISON: CR XR PORTABLE CHEST AP from 11/22/[address] CHEST W from 11/23/2021 FINDINGS: MEDIASTINUM: Normal. HEART: Normal. PULMONARY VASCULATURE: Normal. LUNGS: The opacity in the right mid lung is not visualized on the current examination suggesting reso lution of an infiltrate. Scarring in the lungs is noted. This is unchanged. No new infiltrates or nodules are seen. PLEURAL SPACE: No pleural effusion or pneumothorax. BONE:Within normal limits for the patient's age. OTHER FINDINGS:Normal. IMPRESSION: Resolution of the opacity in the right mid lung suggesting a resolution of an infiltrate. No pulmona ry nodules or new infiltrates are present. DATA REPOSITORY: RADIATION DOSE DELIVERED:
[2021-12-25] MEDS: Bupivacaine 0.25% Pres-Free 30 ML VIAL (14:10)
[2021-12-25 14:34] VITALS: BP 120/79; PULSE 75; RESP 13; TEMP 36.8; O2SAT 95
[2021-12-25 14:39] VITALS: BP 116/76; PULSE 82; RESP 19; TEMP 36.8; O2SAT 94
[2021-12-25 14:44] VITALS: BP 106/68; PULSE 78; RESP 15; TEMP 36.8; O2SAT 95
[2021-12-25 15:00] VITALS: BP 111/79; PULSE 79; RESP 15; TEMP 37.2; O2SAT 96
[2021-12-25 15:15] VITALS: BP 108/68; PULSE 79; RESP 19; TEMP 37.1; O2SAT 94
[2021-12-25 15:30] VITALS: BP 108/74; PULSE 83; RESP 18; TEMP 37.1; O2SAT 94
--- NOTE | 2021-12-25 17:26 | W.PM.OP ---
Date of service: 12/25/21 Time of Service: 17:26 Operative Note Operative Note DATE OF PROCEDURE: 12/25/21 PRE-OP DIAGNOSIS: Placement amnio fix graft/debridement superior anterior keys wound which is 2 x 2 cm/placement of wound VAC POST-OP DIAGNOSIS: same SURGEON: Susana Richey SALES OPERATIONS ASSISTANT: Magui Ruvalcaba ANESTHESIA TYPE: Local By Surgeon and MAC Refer to Anesthesia Record ESTIMATED BLOOD LOSS: 0 PATHOLOGY: none sent COMPLICATIONS: None Patient's condition: stable Implants: See RN notes Procedure Description: Patient originally presented to the ER in November with a stage III decubitus ulcer. We have been placing Apligraf and using a wound VAC for regeneration. She has had excellent results. She is here today for her third application of Apligraf. Informed consent is obtained explaining risks and benefits of the procedure including but not limited to: Bleeding, infection, allergic reaction, complication from the anesthesia. Patient's right lower extremity is the being addressed today. She is brought to the operative suite and placed supine position. Anesthesia is administered per the department of anesthesia. Timeout is performed. The old VAC is removed along with the dressing. She has had excellent response the wound continues to regress and shrink in size with good epithelialization at the margins and is developing central epithelialization from the application of the graft. The lateral is 9 x 7 cm and 0.1 cm deep the medial is 10 x 11 cm and .05cm deep. Both wounds have central islands of epithelialization. The Apligraf is applied today and the wound VAC is reapplied. She is getting some maceration on the skin islands between the 2 wounds. We will try some antifungal's at this time. She also has a another wound superior to the original wound where the cord was located and it did show some increased breakdown. This is debrided today. It has a thick dark as sharp. The wound is not infected. Silver Mepilex is placed on this and needs to be changed regularily. Patient Gricelda procedure well without complication and transferred to PACU in stable condition
--- NOTE | 2021-12-25 17:35 | W.ANESPOSTOP ---
Postoperative Evaluation Date, Time and Location Date Performed: 12/25/21 Time Performed: 15:05 Patient Location: PACU Vital Signs Most Recent Imported Vital Signs: Most Recent Vital Signs Temp Pulse Resp BP Pulse Ox 37.1 C 83 18 108/74 94 12/25/21 15:30 12/25/21 15:30 12/25/21 15:30 12/25/21 15:30 12/25/21 15:30 Pain Score Most Recent Pain Score: Most Recent Pain Score Pain Level 0 12/25/21 15:30 Assessment Mental Status: Arousable with meaningful communication Airway and Respiratory Function: Patent airway with normal (patient baseline) respiratory exam Cardiovascular Function: Hemodynamically Stable Hydration Status: Adequately Hydrated Nausea & Vomiting: No Nausea or Vomiting Pain: Pain is tolerable per patient Peripheral Nerve Block: Patient did not receive a nerve block
--- NOTE | 2021-12-25 17:37 | W.PM.HP.N ---
Date of service: 12/25/21 Time of Service: 12:00 Assessment and Plan Assessment and plan (1) Positive NINI (antinuclear antibody): Status: Acute (2) Thyroid nodule: Status: Acute (3) Status post xenograft placement: Status: Acute (4) COPD (chronic obstructive pulmonary disease): Status: Chronic (5) Bullous emphysema: Status: Acute (6) Depression: Status: Chronic (7) Hyperthyroidism: Status: Chronic (8) Hypoalbuminemia due to protein-calorie malnutrition: Status: Acute (9) Smoker unmotivated to quit: Status: Chronic (10) Asthma: Status: Chronic (11) Narcotic abuse in remission: Assessment and plan: Patient is stable for proposed procedure today Labs reviewed from 12/24 History of Present Illness Narrative: Patient originally presented to the ER on 11/13/2021 with a stage III decubitus ulcer on her right lower extremity involving the medial and lateral ankle. She underwent debridement and 3 weeks of IV antibiotics. We are now placing xenograft due to her poor nutritional status/lack of donor site for skin grafting. She is also undergone intensive nutritional therapy as well as physical therapy. She has done extraordinarily well. She is here today for repeat xenograft. Informed consent is obtained explaining risks and benefits of the procedure including not limited to: Bleeding, infection, allergic reaction, complications from the anesthesia, and other unforetold, patient's. Patient has tolerated sedation well in the past Review of Systems All systems reviewed & are unremarkable except as noted in HPI and below PFSH All Active Problems Positive NINI (antinuclear antibody) (Acute) Thyroid nodule (Acute) Status post xenograft placement (Acute) COPD (chronic obstructive pulmonary disease) (Chronic) Bullous emphysema (Acute) Depression (Chronic) Hyperthyroidism (Chronic) Hypoalbuminemia due to protein-calorie malnutrition (Acute) Smoker unmotivated to quit (Chronic) Asthma (Chronic) Medical History Hypokalemia due to loss of potassium Narcotic abuse in remission Surgical History History of adenoidectomy S/p bilateral myringotomy with tube placement Social History Smoking/Tobacco Use Status: Current every day Tobacco Type: cigarettes Smoking risk assessment performed?: Yes Alcohol Intake: never Drug use: Current Sobriety Substance use type: former substance user Do you feel safe at home: Yes Do you feel safe in your relationship?: Yes Meds Allergies and Home Medications Allergies Allergy/AdvReac Type Severity Reaction Status Date / Time Penicillins Allergy Unknown Hives Verified 11/13/21 14:49 Home Medications Medication Instructions Recorded Confirmed Type levonorgestrel 20 mcg/24 hours (7 1 unit IU DAILY 08/22/15 12/14/21 History yrs) 52 mg intrauterine device (Mirena) ferrous gluconate 324 mg (38 mg 324 mg PO DAILY 11/13/21 12/14/21 History iron) tablet buprenorphine 2 mg-naloxone 0.5 mg 1 film SUBLINGUAL DAILY 11/14/21 12/14/21 History sublingual film (Suboxone) buprenorphine 8 mg-naloxone 2 mg 2 film SUBLINGUAL DAILY 11/14/21 12/14/21 History sublingual film (Suboxone) Exam Narrative Exam Narrative: PHYSICAL EXAM GENERAL APPEARANCE: Alert, healthy appearance, oriented, in no acute distress SKIN: No rashes.? No breakdown HYDRATION: Well hydrated HEAD, EYES, EARS, NECK, THROAT: Head is normocephalic, pupils equal, round, reactive to light and accommodation, ocular movement intact, sclera clear and no jaundice. ?Dentition intact. No sore throat.? No jaw pain. No thrush NECK: Supple, Trachea midline. No JVD. LUNGS: normal respiration/nl chest excursion. ?Clear to auscultation B/l no R/R/W ?HEART: Regular rate and rhythm, EXTREMITY: No edema or cyanosis? no leg pain, redness, swelling.? No IV infiltration see op report for description of wounds ABDOMEN: non tender to palpation, no masses or distention, no hernias. Normal bowel sounds NEURO: no focal neuro deficits. ? Results Last Vital Signs Temp 37.1 C 12/25/21 15:30 Pulse 83 12/25/21 15:30 Resp 18 12/25/21 15:30 BP 108/74 12/25/21 15:30 Pulse Ox 94 12/25/21 15:30
== END 2021-12-25 15:55 | disposition home or self-care (01) ==
LOC: SUR 12-26 15:54
PROVIDERS: PCP Family Medicine; Visit Provider Surgery
PROC: 0HBKXZZ Excision of Right Lower Leg Skin, External Approach (ICD-10-PCS; CPT 97597; principal; 2021-12-25 12:45)
DX: L89.893 Pressure ulcer of other site, stage 3 (principal); J43.8 Other emphysema; F32.A Depression, unspecified; E05.90 Thyrotoxicosis, unspecified without thyrotoxic crisis or storm; F17.210 Nicotine dependence, cigarettes, uncomplicated; E46 Unspecified protein-calorie malnutrition; F11.11 Opioid abuse, in remission
CPT/HCPCS: 97597; 15273; 15274; 71045

== ENCOUNTER 2022-01-28 02:37 | Outpatient (CLI) | payer MEDICAID, SELFPAY | END 2022-01-28 02:38 | disposition home or self-care (01) | LOC: LBO 02:37 | PROVIDERS: PCP Family Medicine; Visit Provider Surgery ==